=== PATIENT | female | born 1940 | race Caucasian/White ===

== ENCOUNTER 2022-11-19 12:37 | Outpatient (OUT) | payer MEDICARE, SELFPAY ==
--- NOTE | 2022-11-19 12:47 | XR_ITS ---
The [address] [address] Patient Name: RUFINO SQUIRES MRN: [id number] date: 1940 Sex: F Assigned Patient Location: [facility] Current Patient Location: [facility] Accession/Order Number: [id number] Exam Date: 11/19/2022 12:54 Report Date: 11/19/2022 14:10 At the request of: NATALIE MICHEL Procedure: XR abdomen 1V EXAM: XR abdomen 1V HISTORY: Kidney Stones N20.0 COMPARISON: None. TECHNIQUE: AP view of the abdomen. FINDINGS: Nonobstructive bowel gas pattern is noted. There is no suspicious calcification. The osseous structures are intact. XR/XR abdomen 1V IMPRESSION: Nonobstructive bowel gas pattern. No suspicious renal calcification. Electronically authenticated by: FRIEDA ALMANZAR Date: 11/19/2022 14:10
== END 2022-11-19 12:38 | disposition home or self-care (01) ==
LOC: RAD 12:37
PROVIDERS: PCP Internal Medicine; Visit Provider Urology
DX: N20.0 Calculus of kidney (principal)
CPT/HCPCS: 74018

== ENCOUNTER 2023-01-03 11:25 | Outpatient (REF) | payer MEDICARE, SELFPAY ==
[2023-01-03 12:08] LABS: SARS-CoV-2 Ag NEGATIVE (NEGATIVE)
[2023-01-04 14:37] LABS: SARS-CoV-2 NAA NOT DETECTED (NOT DETECTE)
== END 2023-01-03 11:26 | disposition home or self-care (01) ==
LOC: LAB 11:25
PROVIDERS: PCP Internal Medicine; Visit Provider Internal Medicine
DX: Z20.822 Contact with and (suspected) exposure to COVID-19 (principal)
CPT/HCPCS: 87635; 87811

== ENCOUNTER 2023-04-10 11:31 | Outpatient (REF) | payer MEDICARE, SELFPAY ==
[2023-04-10 11:51] LABS: Clarity Urine CLEAR (CLEAR); Color Urine DK. ORANGE (YELLOW)
[2023-04-10 11:52] LABS: Bilirubin Urine COLOR INTERFERENCE (NEGATIVE); Blood Urine COLOR INTERFERENCE (NEGATIVE); Glucose Urine UA COLOR INTERFERENCE mg/dL (NEGATIVE); Ketones Urine COLOR INTERFERENCE mg/dL (NEGATIVE); Leukocyte Esterase Urine COLOR INTERFERENCE (NEGATIVE); Nitrite Urine COLOR INTERFERENCE (NEGATIVE); Protein Urine COLOR INTERFERENCE mg/dL (NEG/TRACE); Urobilinogen Urine COLOR INTERFERENCE EU/dL (0.2-1.0); pH Urine COLOR INTERFERENCE (5.0-9.0)
[2023-04-10 12:10] LABS: WBC Urine 20-50 #/HPF (NONE SEEN)
[2023-04-10 12:11] LABS: Bacteria Urine SMALL #/HPF (NONE SEEN); Calcium Oxalate Crystals Urine RARE; Cast Seen? NONE SEEN #/LPF (NONE SEEN); Crystals Seen? Seen #/HPF (None Seen); Mucus Urine NONE SEEN (NONE SEEN); Squamous Epithelial Cell Urine FEW #/LPF (NONE/RARE); Urine Culture Indicated ALREADY ORDERED
== END 2023-04-10 11:32 | disposition home or self-care (01) ==
LOC: LAB 11:31
PROVIDERS: PCP Internal Medicine; Visit Provider Internal Medicine
DX: R30.0 Dysuria (principal)
CPT/HCPCS: 81001; 87086

== ENCOUNTER 2023-05-16 11:15 | Observation (INO) | payer MEDICARE, SELFPAY ==
[2023-05-16] VITALS (15 sets, daily range): BP systolic 124–153; BP diastolic 46–83; PULSE 70–82; RESP 16–31; TEMP 36.5–36.8; O2SAT 91–98; BMI 35.7; BMI 36.6
--- NOTE | 2023-05-16 11:34 | ECG_ITS ---
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
[2023-05-16] MEDS: 0.9 % SODIUM CHLORIDE 1,000 ML 999 ML IV (11:48)
[2023-05-16 11:57] LABS: Basophils Absolute Auto 0.1 10^3/uL (0.0-0.1); Basophils Percent Auto 1.2 % (0.2-2.0); Eosinophils Absolute Auto 0.2 10^3/uL (0.0-0.7); Eosinophils Percent Auto 2.4 % (0.9-7.0); Hematocrit 45.2 % (36.0-48.0); Hemoglobin 14.7 g/dL (12.0-16.0); Immature Granulocytes Abs Auto 0.03 10^3/uL (0.00-0.03); Immature Granulocytes Pct Auto 0.4 % (0.0-0.5); Lymphocytes Absolute Auto 2.2 10^3/uL (1.2-3.8); Lymphocytes Percent Auto 28.3 % (20.5-60.0); Mean Corpuscular HGB Conc 32.5 g/dL (29.9-35.2); Mean Corpuscular Hemoglobin 29.3 pg (26.7-34.0); Mean Platelet Volume 10.8 fL (9.5-13.5); Monocytes Absolute Auto 0.6 10^3/uL (0.3-0.8); Monocytes Percent Auto 7.4 % (1.7-12.0); Neutrophils Absolute Auto 4.6 10^3/uL (1.4-6.5); Neutrophils Percent Auto 60.3 % (43.0-75.0); Platelet Count 255 10^3/uL (150-450); Red Blood Count 5.02 10^6/uL (4.20-5.40); White Blood Count 7.6 10^3/uL (4.0-11.0)
[2023-05-16 12:11] LABS: Alanine Aminotransferase 17 U/L (14-59); Albumin Globulin Ratio 0.9; Albumin Level 3.4 g/dL (3.4-5.0); Alkaline Phosphatase 68 U/L (46-116); Aspartate Amino Transferase 13 U/L (15-37); Bilirubin Total 0.4 mg/dL (0.2-1.0); Calcium 9.6 mg/dL (8.5-10.1); Chloride 99 mmol/L (98-107); Estimated GFR (African America >60 (>=60); Estimated GFR (Non-African Ame >60 (>=60); Globulin 3.8 g/dL; Glucose 152 mg/dL (74-106); Magnesium 2.2 mg/dL (1.8-2.4); Sodium 129 mmol/L (136-145); Total Protein 7.2 g/dL (6.4-8.2)
[2023-05-16 12:14] LABS: Troponin I High Sensitivity 6.2 pg/mL (4.0-51.3)
[2023-05-16] MEDS: 0.9 % SODIUM CHLORIDE 1,000 ML 125 ML IV ×3 (14:16→23:34)
[2023-05-16 14:25] LABS: Bilirubin Urine NEGATIVE (NEGATIVE); Blood Urine NEGATIVE (NEGATIVE); Color Urine LT. YELLOW (YELLOW); Glucose Urine UA NEGATIVE (NEGATIVE); Ketones Urine NEGATIVE (NEGATIVE); Leukocyte Esterase Urine SMALL (NEGATIVE); Nitrite Urine NEGATIVE (NEGATIVE); Protein Urine NEGATIVE (NEG/TRACE); Urobilinogen Urine 0.2 EU/dL (0.2-1.0); pH Urine 6.5 (5.0-9.0)
[2023-05-16 14:30] LABS: Clarity Urine SLIGHTLY CLOUDY (CLEAR)
[2023-05-16 14:31] LABS: Bacteria Urine TRACE #/HPF (NONE SEEN); Cast Seen? NONE SEEN #/LPF (NONE SEEN); Crystals Seen? None Seen #/HPF (None Seen); Mucus Urine NONE SEEN (NONE SEEN); RBC Urine NONE SEEN #/HPF (0-2); Squamous Epithelial Cell Urine MODERATE #/LPF (NONE/RARE)
--- NOTE | 2023-05-16 14:35 | ED_ITS ---
HPI - General Adult General Chief complaint: Dizziness Stated complaint: UTI SYMPTOMS Time Seen by Provider: 05/16/23 11:34 Source: patient Mode of arrival: ambulance Limitations: no limitations History of Present Illness HPI narrative: Patient is a 82-year-old female who is presenting to the Emergency Room with chief complaint Of dizziness with no vertigo. Patient is bobbing her head up and down with flexion and extension in stating this is causing her dizziness. Patient is staying with range of motion or cause her to be lightheaded and dizzy. Patient adamantly states she has no vertigo. Patient did have a similar training one year ago. Patient has no headache or neck pain. Patient feels weak and fatigued. Patient was having difficulty ambulating this morning. Patient has been having urinary incontinence for a Month since the beginning of April. Patient stated that she was initially placed on Keflex and then switched to Macrobid and then switch to amoxicillin. Patient was initially and Dr. Hernandez office, then saw an urgent care, and then was switched tto amoxicillin by Dr. bain's office. Patient does see Dr. hernandez for urology needs. Patient states that she's had urinary incontinence since the beginning of April. Antibiotics are not improving her urinary incontinence. Patient also is having dizziness since she started taking amoxicillin, patient relates for dizziness to a side effect of amoxicillin. Patient is currently wearing adult diapers. Patient has no other acute complaints at this time. Daughters at bedside. All systems are negative except as noted/marked. All systems reviewed and otherwise negative. . Nurses note and vital signs reviewed and patient is not hypoxic. General: The patient appears well and in no apparent distress. Patient is resting comfortably on cart. Patient is not toxic, lethargic, or listless Skin: Warm, dry, no pallor noted. There is no rash noted. No petechiae, purpura. Head: Normocephalic, atraumatic Eye: Normal conjunctiva, no drainage, EOMI. PERRL Ears, Nose, Mouth, and Throat: oral mucosa is moist. Nares patent. Mouth without vesicles. Patient's bilateral tympanic membrane shows small air-fluid levels bilateral, right greater than left. No erythema, no perforation, no signs of otitis media. Cardiovascular: Regular Rate and Rhythm, no murmur, gallop, rub Respiratory: Patient is in no distress, no accessory muscle use, lungs are clear to auscultation, no wheezing, rales or rhonchi Back: non-tender, no CVA tenderness bilaterally to percussion. No CT LS midline pain GI: soft, Obese, no tenderness to palpation, no masses appreciated. No rebound, guarding, or rigidity noted. No flank pain bilateral, No distention Musculoskeletal: Patient has full range of motion of all of the extremities, no motor, sensory, or focal neurological deficits Neurological: A&O x3, normal speech, No strokelike signs or symptoms. Psychiatric: Cooperative Related Data Home Medications Medication Instructions Recorded Confirmed buspirone 15 mg tablet 15 mg PO BID 05/16/23 05/16/23 buspirone 7.5 mg tablet 7.5 mg PO 1400 05/16/23 05/16/23 levothyroxine 112 mcg tablet 112 mcg PO DAILY 05/16/23 05/16/23 nortriptyline 10 mg capsule 10 mg PO BEDTIME 05/16/23 05/16/23 propranolol 10 mg tablet 10 mg PO QID 05/16/23 05/16/23 Allergies Allergy/AdvReac Type Severity Reaction Status Date / Time Penicillins AdvReac Severe Nausea Verified 05/16/23 11:23 capsaicin AdvReac Verified 05/16/23 11:23 moxifloxacin [From Avelox] AdvReac Verified 05/16/23 11:25 Sulfa (Sulfonamide AdvReac Nausea Verified 05/16/23 11:23 Antibiotics) [facility] Medical History (Updated 05/16/23 @ 20:42 by Gideon Lopez MD) Dizziness ?R42 - Dizziness and giddiness (ICD-10) Heart block ?I45.9 - Conduction disorder, unspecified (ICD-10) Macular degeneration ?H35.30 - Unspecified macular degeneration (ICD-10) Pacemaker ?Z95.0 - Presence of cardiac pacemaker (ICD-10) UTI (urinary tract infection) ?N39.0 - Urinary tract infection, site not specified (ICD-10) Kidney calculi ?N20.0 - Calculus of kidney (ICD-10) Surgical History (Updated 05/16/23 @ 15:32 by Marissa Hoover) H/O: hysterectomy ?Z90.710 - Acquired absence of both cervix and uterus (ICD-10) Hx of carpal tunnel repair ?Z98.890 - Other specified postprocedural states (ICD-10) History of bilateral knee replacement ?Z96.653 - Presence of artificial knee joint, bilateral (ICD-10) History of appendectomy ?Z90.49 - Acquired absence of other specified parts of digestive tract (ICD- 10) Hx of cholecystectomy ?Z90.49 - Acquired absence of other specified parts of digestive tract (ICD- 10) Social History Smoking status: Former smoker Highest level of school completed/degree received: high school graduate Exam Constitutional Vital Signs, click to edit/add: Last Vital Signs Temp 97.8 F 05/16/23 15:53 Pulse 78 05/16/23 20:00 Resp 18 05/16/23 15:53 BP 143/83 H 05/16/23 15:53 Pulse Ox 94 L 05/16/23 15:53 O2 Del Method Room Air 05/16/23 15:53 Course Vital Signs Vital signs: Vital Signs Temperature 97.7 F 05/16/23 11:17 Pulse Rate 77 05/16/23 11:17 Respiratory Rate 16 05/16/23 11:17 Blood Pressure 153/71 H 05/16/23 11:17 Pulse Oximetry 97 05/16/23 11:17 Oxygen Delivery Method Room Air 05/16/23 11:17 Temperature 97.8 F 05/16/23 15:53 Pulse Rate 78 05/16/23 20:00 Respiratory Rate 18 05/16/23 15:53 Blood Pressure 143/83 H 05/16/23 15:53 Pulse Oximetry 94 L 05/16/23 15:53 Oxygen Delivery Method Room Air 05/16/23 15:53 Medical Decision Making MDM Narrative Medical decision making narrative: Patient's dizziness did not improve with range of motion of her neck or sitting up in bed. Patient does not have any vertigo. Patient's sodium was 129. Patient was nervous to go home. Patient was given 1 L of IV fluids, there is no improvement. Patient has no other significant findings. Urine was still pending at admission time. Patient was admitted to medicine for continued hydration, a continued therapy. Patient's 2 daughters were at bedside. Patient asked nursing staff and myself multiple times for something to fix a dizziness now. I told the patient there is no medication or therapy they can be done now to fix this. Patient said that she did have vertigo and dizziness over one year ago, at that time she did phhysical therapy for crystal vestibular training. Patient has no headache. No strokelike signs or symptoms. No vertigo. Patient will be admitted for further evaluation. Patient said this morning she cannot ambulate and bear weight. The last couple of days she's been using a cane but typically she only uses HER-2 feet for ambulation. See Natalia RN nursing notes,When she was doing a straight catheter on the patient, she noticed most likely bladder prolapse when she obtain urine sample. Patient will be admitted by Dr. Burr. He agrees to started no antibiotics until urine culture comes back. Patient is aware that we may not have urology coverage this weekkend and may not be able to see Dr. Hernandez in the hospital this weekend, especially if he is not transportation assistant. Lab Data Lab results reviewed: Yes I reviewed the patient's lab results Labs: Lab Results 05/16/23 05/16/23 Range/Units 11:30 14:10 WBC 7.6 (4.0-11.0) 10^3/uL RBC 5.02 (4.20-5.40) 10^6/uL Hgb 14.7 (12.0-16.0) g/dL Hct 45.2 (36.0-48.0) % MCV 90.0 (81.0-99.0) fL MCH 29.3 (26.7-34.0) pg MCHC 32.5 (29.9-35.2) g/dL RDW 13.0 (11.0-15.0) % Plt Count 255 (150-450) 10^3/uL MPV 10.8 (9.5-13.5) fL Neut % (Auto) 60.3 (43.0-75.0) % Lymph % (Auto) 28.3 (20.5-60.0) % [place] % (Auto) 7.4 (1.7-12.0) % Eos % (Auto) 2.4 (0.9-7.0) % Baso % (Auto) 1.2 (0.2-2.0) % Neut # (Auto) 4.6 (1.4-6.5) 10^3/uL Lymph # (Auto) 2.2 (1.2-3.8) 10^3/uL [place] # (Auto) 0.6 (0.3-0.8) 10^3/uL Eos # (Auto) 0.2 (0.0-0.7) 10^3/uL Baso # (Auto) 0.1 (0.0-0.1) 10^3/uL Abs Immat Gran (auto) 0.03 (0.00-0.03) 10^3/uL Imm/Tot Granulo (auto) 0.4 (0.0-0.5) % Sodium 129 L (136-145) mmol/L Potassium 4.0 (3.5-5.1) mmol/L Chloride 99 (98-107) mmol/L Carbon Dioxide 29.0 (21.0-32.0) mmol/L Anion Gap 5.0 BUN 16.0 (7.0-18.0) mg/dL Creatinine 0.84 (0.55-1.02) mg/dL Est GFR ( Amer) >60 (>=60) Est GFR (Non-Af Amer) >60 (>=60) BUN/Creatinine Ratio 19.0 Glucose 152 H (74-106) mg/dL Calcium 9.6 (8.5-10.1) mg/dL Magnesium 2.2 (1.8-2.4) mg/dL Total Bilirubin 0.4 (0.2-1.0) mg/dL AST 13 L (15-37) U/L ALT 17 (14-59) U/L Alkaline Phosphatase 68 (46-116) U/L Troponin I High Sens 6.2 (4.0-51.3) pg/mL Total Protein 7.2 (6.4-8.2) g/dL Albumin 3.4 (3.4-5.0) g/dL Globulin 3.8 g/dL Albumin/Globulin Ratio 0.9 Urine Color Lt. yellow (YELLOW) Urine Clarity Slightly cloudy A (CLEAR) Urine pH 6.5 (5.0-9.0) Ur Specific [place] 1.010 (1.005-1.025) Urine Protein Negative (NEG/TRACE) mg/dL Urine Glucose (UA) Negative (NEGATIVE) mg/dL Urine Ketones Negative (NEGATIVE) mg/dL Urine Occult Blood Negative (NEGATIVE) Urine Nitrite Negative (NEGATIVE) Urine Bilirubin Negative (NEGATIVE) Urine Urobilinogen 0.2 (0.2-1.0) EU/dL Ur Leukocyte Esterase Small A (NEGATIVE) Urine RBC None seen (0-2) #/HPF Urine WBC 2-5 A (NONE SEEN) #/HPF Ur Squamous Epith Cells Moderate A (NONE/RARE) #/LPF Urine Crystals None seen (None Seen) #/HPF Urine Bacteria Trace A (NONE SEEN) #/HPF Urine Casts None seen (NONE SEEN) #/LPF Urine Mucus None seen (NONE SEEN) ECG Data Attestation: I personally reviewed and interpreted this ECG as follows: (EKG interpretation. Normal sinus rhythm at 76 beats a minute. Left axis deviation. QTC of 432. QRS 140. Will be compared to old EKG if available. Appears to be LBBB..) Interpretation: Patient's EKG is compared to 06/29/2022. Patient has similar EKG today as she did in June 2022. Discharge Plan Discharge Chief Complaint: Dizziness Clinical Impression: Urinary incontinence, Dizziness, Hyponatremia, Dehydration Patient Disposition: Admitted As Inpatient Condition: Fair Discharge Date/Time: 05/16/23 15:10
--- OUTSIDE RECORDS SUMMARY | 2023-05-16 15:27 | XMS_ITS | CCD ---
Author Name Unknown Address [address] [place] [address] Organization [facility] Care Team Providers Care Sports Photographer Name Role Phone ERICKBRYANT Klein Unavailable Unavailable Mook Santiago Unavailable MANAV FERNANDEZ Primary Care Physician [phone] Manav Fernandez DO Primary Care Provider Tamra Grewal MD Unavailable Manav Fernandez DO Primary Care Provider Tamra Grewal MD Unavailable Manav Fernandez DO Primary Care Provider DR MANAV FERNANDEZ Primary Care Unavailable NATALIE CARLTON Admitting Unavailable NATALIE CARLTON Attending Unavailable NATALIE CARLTON Consulting Unavailable AISHWARYA, DR MOOK Gordon Consulting Unavailable MOHINI, DR JEFFERS Primary Care Unavailable RUTHANN ., QUEENIE Admitting Unavailable RUTHANN ., QUEENIE Attending Unavailable ADIN KILLIAN Consulting Unavailable RUTHANN ., QUEENIE Consulting Unavailable JOEY MARLEY Consulting Unavailable ANDREW MONTALVO Consulting Unavailable MOHINI, DR JEFFERS Primary Care Unavailable NATALIE CARLTON Attending Unavailable NATALIE CARLTON Admitting Unavailable MOHINI, DR JEFFERS Primary Care Unavailable MOHINI, DR JEFFERS Admitting Unavailable MOHINI, DR JEFFERS Attending Unavailable MOHINI, DR JEFFERS Consulting Unavailable MOHINI, DR JEFFERS Primary Care Unavailable MOHINI, DR JEFFERS Admitting Unavailable MOHINI, DR JEFFERS Attending Unavailable MOHINI, DR JEFFERS Consulting Unavailable MANAV FERNANDEZ Primary Care Unavailable KM KIRBY Attending Unavailable Manav Fernandez Unavailable Tamra Grewal MD Unavailable [phone] MANAV FERNANDEZ Primary Care Unavailable RACHID ODELL Attending Unavailable MANAV FERNANDEZ Primary Care Unavailable TAMRA GREWAL Referring Unavailable TAMRA GREWAL Attending Unavailable MANAV FERNANDEZ Primary Care Unavailable TAMRA GREWAL Referring Unavailable TAMRA GREWAL Attending Unavailable MANAV FERNANDEZ Primary Care Unavailable MANAV FERNANDEZ Primary Care Unavailable MANAV FERNANDEZ Primary Care Unavailable RACHID ODELL Attending Unavailable Natalie CARLTON Attending Unavailable TIM THOMAS Attending Unavailab Roseann Hinojosa Attending Unavailable Roseann Luna Admitting Unavailable Roseann Luna Attending Unavailable Nina Wallace Unavailable BUSHRA Wallace Attending Provider Nina Wallace Attending Unavailable Nina Wallace Admitting Unavailable NO FAMILY, PHYSICIAN Primary Care Unavailable Allergies Allergy Classification Reported Allergen(s) Allergy Type Date of Onset Reaction(s) Facility (18 sources) acetaminophen / oxyCODONE; Translations: [OXYCODONE-ACETAMI NOPHEN] Drug Allergy 12-03-19 07 Intolerance [facility] Repository (20 sources) capsaicin; Translations: [CAPSAICIN] Drug Allergy 02-10-20 15 Itching [facility] (20 sources) cephalexin; Translations: [CEPHALEXIN] Drug Allergy 07-23-19 17 Itching [facility] (18 sources) clavulanic acid; Translations: [CLAVULANIC ACID] Drug Allergy 07-23-19 17 Itching [facility] (18 sources) levoFLOXacin; Translations: [LEVOFLOXACIN] Drug Allergy 07-23-19 17 Itching [facility] (18 sources) metroNIDAZOLE; Translations: [METRONIDAZOLE] Drug Allergy 07-23-19 17 Itching [facility] (20 sources) moxifloxacin; Translations: [MOXIFLOXACIN] Drug Allergy 12-21-19 04 Unknown (qualifier value), Intolerance [facility] (18 sources) pravastatin; Translations: [PRAVASTATIN SODIUM] Drug Allergy 06-15-19 10 Intolerance [facility] (18 sources) Sulfonamides (Antibiotic); Translations: [SULFA (SULFONAMIDE ANTIBIOTICS)] Propensity to adverse reactions to drug (disorder) 12-21-19 04 GI Upset [facility]ository (2 sources) OTHER; Translations: [OTHER] Propensity to adverse reactions (disorder) 12-20-19 07 AOF [facility] (20 sources) Acetaminophen / oxyCODONE; Translations: [acetaminophen-oxy codone] Drug Allergy Unknown (qualifier value) [facility] Other (1 source) Amoxicillin / Clavulanate Drug Allergy Unknown [facility] Other (20 sources) Sulfonamides (Antibiotic) Drug allergy Unknown [facility] Other (20 sources) Pepper Drug allergy Unknown [facility] Other (5 sources) Sulfonamides (Antibiotic); Translations: [sulfa drugs] Drug allergy Unknown (qualifier value) [facility] (5 sources) Peppers; Translations: [Peppers] Food allergy Unknown (qualifier value) [facility] (16 sources) hot peppers [Other] Propensity to adverse reactions 12-20-19 07 Itching [facility] Work Phone: (1 source) oxyCODONE Drug Allergy 02-20-20 17 [facility] Work Phone: (13 sources) Sulfonamides (Antibiotic) Propensity to adverse reactions to drug 06-09-19 15 Unknown [facility] Work Phone: (2 sources) Acetaminophen / oxyCODONE Drug Allergy 03-24-20 14 [facility] (1 source) Amoxicillin Drug Allergy [facility] (2 sources) Ciprofloxacin Drug Allergy 10-23-19 17 [facility] (3 sources) moxifloxacin; Translations: [Avelox] Drug Allergy 03-24-20 14 [facility] (2 sources) Sulfonamides (Antibiotic) Drug allergy (disorder) 03-24-20 14 [facility] (20 sources) Amoxicillin-Pot Clavulanate Drug allergy Unknown [facility] Other (12 sources) Amoxicillin Drug Allergy Unknown [facility] Other (12 sources) metFORMIN Drug Allergy Unknown [facility] Other (12 sources) Pseudoephedrine Drug Allergy Unknown [facility] Other (12 sources) sulfADIAZINE Drug Allergy Comment:Sulfa [facility] Other (12 sources) Avelox *FLUOROQUINOLONES* Propensity to adverse reactions Unknown [facility] Other (1 source) Acetaminophen / oxyCODONE; Translations: [Percocet 5/325] Drug Allergy [facility] Repository Medications Current Medications Medication Drug Class(es) Dates Sig (Normalized) Sig (Original) amoxicillin 500 mg oral capsule (3 sources) Penicillin-class Antibacterial Start: 05-10-2023 take 1 capsule by mouth every twelve hours Amoxicillin 500 MG 1 capsule Orally Twice a day for 7 days Apr, Active azithromycin 250 mg oral tablet (2 sources) Macrolide Antimicrobial Start: 01-03-2023 Azithromycin 250 MG as directed Orally daily for 5 days Dec, Active b complex vitamins capsule (1 source) take 1 capsule by mouth once daily b complex vitamins capsule Take 1 capsule by mouth daily 0 Active B-Complex SR (4 sources) Start: 02-17-2019 take 1 tablet by mouth once daily B-Complex SR tab(s), Oral, Daily, Refill(s) 0 Start Date: 02/17/19 Status: Ordered busPIRone (20 sources) Start: 02-17-2019 busPIRone Oral, BID, Refills(s) 0 Start Date: 02/17/19 Status: Ordered Start: 10-06-2018 take 1 tablet by jigna th twice daily busPIRone (BUSPAR) 15 mg tablet Take 1 tablet by mouth twice daily. 180 tablet 1 10/06/2018 Active BuSpar 15 mg BID Active Comment on above: Take 1 tablet by jigna th twice daily. cephalexin 500 mg oral capsule (9 sources) Cephalosporin Antibacterial Start: 04-17-2023 End: 04-27-2023 take 1 capsule by mouth twice daily Keflex 500 mg Cap 500 mg = 1 cap(s), Oral, BID, X 10 day(s), # 20 cap(s), Refills(s) 0, Pharmacy: [facility]/pharmacy #[id number], 170, cm, 04/17/23 9:22:00 EST, Height/Length Dosing, 113.9, kg, 04/17/23 9:22:00 EST, Weight Dosing Start Date: 04/17/23 Stop Date: 04/27/23 Status: Ordered Start: 02-20-2023 take 1 tablet by jigna th twice daily Cephalexin 500 MG 1 tablet Orally bid w/ food for 5 days Feb, Active chlorthalidone 25 mg oral tablet (4 sources) Thiazide-like Diuretic Start: 04-17-2023 take 1 tablet by mouth once daily chlorthalidone 25 mg Tab 25 mg = 1 tab(s), Oral, Daily, # 30 tab(s), Refills(s) 6, Pharmacy: [facility]/pharmacy #[id number], 170, cm, 04/17/23 9:22:00 EST, Height/Length Dosing, 113.9, kg, 04/17/23 9:22:00 EST, Weight Dosing Start Date: 04/17/23 Status: Ordered Start: 04-23-2021 End: 04-18-2022 take 0.5 tablet by mouth once daily chlorthalidone 25 mg Tab half tab, Oral, Daily, X 30 day(s), # 15 tab(s), Refills(s) 11, Pharmacy: [facility]/pharmacy #[id number], 170, cm, 09/18/20 14:12:00 EDT, Height/Length Dosing, 113, kg, 09/18/20 14:12:00 EDT, Weight Dosing Start Date: 04/23/21 Stop Date: 04/18/22 Status: Ordered Cinnamon Preparation (20 sources) Non-Standardized Food Allergenic Extract Cinnamon Active Coenzyme Q10 (CO Q 10 PO) (1 source) Coenzyme Q10 (CO Q 10 PO) Take by mouth 0 Active dicyclomine hydrochloride 10 mg oral capsule (17 sources) Anticholinergic Start: 11-23-2021 dicyclomine 10 mg Cap Refills(s) 0 Start Date: 11/23/21 Status: Ordered take 1 tablet by jigna th every eight hours Dicyclomine HCl 20 MG 1 tablet Orally Th ree times a day Active doxycycline hyclate 100 mg oral capsule (12 sources) Tetracycline-class Drug Start: 07-02-2022 take 1 capsule by mouth twice daily Doxycycline Hyclate 100 MG 1 capsule Orally twice daily for 10 days Jun, Active Hair Skin [employer] Nails Gummies (20 sources) Hair Skin & Nails Gummies Active hydrocortisone 25 mg/ml topical cream (20 sources) Corticosteroid Start: 10-09-2021 Anusol-HC 2.5 % 1 application Externally Twice a day for 14 days September, Active Start: 10-09-2021 Anusol-HC 2.5 % 1 application Externally Twice a day for 14 days September, Active [id number]-[id number] (CEREFOLIN PO) (1 source) H-Eoclafkcnuvx-J [id number]-[id number] (CEREFOLIN PO) Take by mouth daily 0 Active Synthroid (20 sources) l-Thyroxi ne Start: 9 Synthroid Oral, Daily, Refills(s) 0 Start Date: 02/17/19 Status: Ordered Start: 07-23-2017 take 1 tablet by jigna th once daily levothyroxine (SYNTHROID) 112 MCG tablet Take 1 tablet by mouth Daily 90 tablet 3 07/23/2017 Active Start: 05-22-2016 take 1 tablet by jigna th once daily before breakfast levothyroxine (SYNTHROID) 100 mcg tablet Take 1 tablet by mouth daily before breakfast. 90 tablet 3 05/22/2016 Active Levothyroxine So dium 112 MCG TAKE 1 TABLET DAILY ON AN EMPTY STOMACH for 90 Active Comment on above: Take 1 tablet by jigna th daily before breakfast. nitrofurantoin, macrocrystals 25 mg / nitrofurantoin, monohydrate 75 mg oral capsule (5 sources) Nitrofuran Antibacterial Start: 05-03-20 take 1 capsule by mouth every twelve hours Macrobid 100 MG 1 cap(s) Orally bid for 5 day(s) Apr, Active nortriptyline 10 mg oral capsule (20 sources) Tricyclic Antidepressant Start: 11-26-19 End: 05-07-20 nortriptyline 10 mg Cap Refills(s) 0 Start Date: 11/25/22 Status: Ordered Start: 08-20-2022 End: 11-18-2022 take 1 capsule by mouth once daily at bedtime nortriptyline (PAMELOR) 10 mg capsule Take 1 capsule by mouth daily at bedtime. 90 capsule 0 10/17/2022 Active Comment on above: Take 1 capsule by mo ut daily at bedtime. [place]-3 Fatty Acids (FISH OIL PO) (1 source) [place]-3 Fatty Ac ids (FISH OIL PO) Take by mouth 0 Active pantoprazole (20 sources) Proton Pump Inhibitor Start: 02-17-2019 pantoprazole Daily, Refills(s) 0 Start Date: 02/17/19 Status: Ordered take 1 tablet by mouth once stevenson y Pantoprazole Sodium 40 MG 1 tablet Orally Once a day, taken on an empty stomach, followed in 30 minutes by bkfst Active Comment on above: Take 40 mg by mouth once daily. phenazopyridine hydrochloride 200 mg oral tablet (5 sources) Start: 3 take 1 tablet by mouth every eight hours Pyridium 200 MG 1 tablet after meals Orally Three times a day for 2 day(s) Apr, Active Probiotic Product (ALIGN PO) (1 source) Probiotic Produc t (ALIGN PO) Take by mouth 0 Active Propranolol (20 sources) beta-Adrenergic Claudia Start: 9 propranolol Refills(s) 0 Start Date: 02/17/19 Status: Ordered Start: 06-22-2018 End: 08-31-2023 take 1 tablet by mouth four times daily propranolol (INDERAL) 10 mg tablet Take 1 tablet by mouth four times daily. 360 tablet 1 03/04/2023 08/31/2023 Active take 1 tablet by jigna th every twelve hours Propranolol HCl 20 MG 1 tablet Orally BID Active Comment on above: Take 1 tablet by jigna th four times daily. turmeric extract 450 mg oral capsule (1 source) Turmeric 450 MG CAPS Take by mouth 0 Active Vitamin B Complex (20 sources) take 1 capsule by mouth once daily VITAMIN B COMPLEX (B COMPLEX-100 ORAL) Take 1 capsule by mouth once daily. Patient denies taking this any longer 0 Active Vitamin B Comple x Active Comment on above: Take 1 capsule by mo uth once daily. Patient denies taking this any longer Vitamin D (20 sources) Vitamin D Active Vitamin E (20 sources) Vitamin E, dl, a cetate, (VITAMIN E) 400 unit capsule Take 400 Units by mouth as needed. 0 Active Vitamin E, dl, a cetate, (VITAMIN E) 400 unit capsule Take 400 Units by mouth as needed. 0 Active Vitamin E Active Comment on above: Take 400 Units by mo uth as needed. Completed/Discontinued Medications Medication Drug Class(es) Dates Sig (Normalized) Sig (Original) acetaminophen 500 mg / caffeine 65 mg oral tablet (16 sources) Central Nervous System Stimulant, Methylxanthine take 2 tablets by mouth twice daily, then take 2 tablets by mouth in the morning, then take 1 tablet by mouth after lunch Acetaminophen-Caf feine (TENSION HEADACHE PAIN RELIEVER) 500-65 mg tab Take 2 tablets by mouth twice daily. 2 tablets in am, 1 tablet after lunch 0 Active Comment on above: Take 2 tablets by mo [facility] twice daily. 2 tablets in am, 1 tablet after lunch ascorbic acid 100 mg / d-biotin 0.3 mg / folic acid 1 mg / niacinamide 20 mg / pantothenic acid 10 mg / pyridoxine hydrochloride 10 mg / riboflavin 1.7 mg / thiamine 1.5 mg / vitamin b12 0.006 mg oral tablet (16 sources) Vitamin B12, Vitamin C vit B complx-folic ac-C-biotin 1 mg-100 mg- 300 mcg tab Take by mouth. 0 Active Comment on above: Take by mouth. cholecalciferol 0.25 mg oral capsule (17 sources) Vitamin D Cholecalciferol, Vitamin D3, 10,000 unit cap Take by mouth once daily. 0 Active Cholecalciferol (VITAMIN D) 2000 units CAPS capsule Take by mouth 0 Active Comment on above: Take by mouth once d aily. cinnamon bark 500 mg oral capsule (16 sources) take 2 capsules by mouth once daily Cinnamon Bark 500 mg cap Take 2 capsules by mouth once daily. 0 Active Comment on above: Take 2 capsules by out once daily. cyclobenzaprine hydrochloride 10 mg oral tablet (2 sources) Muscle Relaxant Start: 01-25-20 End: 01-25-20 22 take 1 tablet by mouth three times daily as needed for pain cyclobenzaprine (FLEXERIL) 10 mg tablet Indications: Myalgia Take 1 tablet by mouth three times daily as needed for pain. 270 tablet 1 01/24/2021 01/24/2022 Discontinued (Discontinued by Patient) Comment on above: Take 1 tablet by jigna three times daily as needed for pain. 24 hr loratadine 10 mg / pseudoephedrine sulfate 240 mg extended release oral tablet (16 sources) alpha-Adrenergic Agonist take 1 tablet by mouth once daily loratadine-pseudoephed rine ER (CLARITIN-D 24) 10-240 mg Tb24 Take 1 tablet by mouth once daily. 0 Active Comment on above: Take 1 tablet by jigna th once daily. Problems Active Problems Problem Classification Problem Date Documented Da te Episodic/Chronic Abdominal pain (20 sources) Abdominal pain; Translations: [Unspecified abdominal pain] Episodic Anxiety disorders (20 sources) Anxiety; Translations: [Anxiety disorder, unspecified] Onset: 3 02-17-2019 Chronic Calculus of urinary tract (10 sources) Kidney stone; Translations: [Calculus of kidney] Onset: 2 Episodic Conditions associated with dizziness or vertigo (8 sources) Dizziness; Translations: [Dizziness and giddiness] Onset: 3 Episodic Conduction disorders (19 sources) Mobitz type II atrioventricular block; Translations: [Atrioventricular block, second degree] Onset: 5 02-26-2015 Chronic Diabetes mellitus with complications (20 sources) Type 2 diabetes mellitus with hyperglycemia; Translations: [Type 2 diabetes mellitus] Onset: 3 Chronic Diabetes mellitus without complication (4 sources) Diabetes mellitus 02-17-2019 Chronic Diverticulosis and diverticulitis (4 sources) Diverticular disease 02-17-2019 Chronic Esophageal disorders (20 sources) Gastroesophageal reflux disease; Translations: [Gastro-esophageal reflux disease without esophagitis] Onset: 2 Resolved: 2 Chronic Essential hypertension (20 sources) Hypertensive disorder; Translations: [Essential (primary) hypertension] Onset: 5 02-17-2019 Chronic Genitourinary symptoms and ill-defined conditions (9 sources) Urge incontinence; Translations: [Urge incontinence of urine] Onset: 2 Chronic Genitourinary symptoms and ill-defined conditions (20 sources) Nocturia; Translations: [Nocturia] Onset: 2 Episodic Malaise and fatigue (20 sources) Fatigue; Translations: [Other fatigue] Episodic Menopausal disorders (1 source) Hormone replacement therapy; Translations: [HORMONE REPLACEMENT THERAPY] Onset: 3 Episodic Mood disorders (20 sources) Depressive disorder; Translations: [Dysthymia] Onset: 7 02-17-2019 Chronic Nausea and vomiting (20 sources) Nausea; Translations: [Nausea] Episodic Osteoarthritis (17 sources) Osteoarthritis; Translations: [Osteoarthrosis, unspecified whether generalized or localized, lower leg] Onset: 1 05-29-2010 Chronic Other aftercare (1 source) Other group home (current) drug therapy; Translations: [OTH ELEMENTARY EDUCATOR CURRENT DRUG THERAPY] Onset: 3 Episodic Other connective tissue disease (16 sources) History of total knee arthroplasty; Translations: [Presence of unspecified artificial knee joint] Onset: 1 02-05-2011 Chronic Other connective tissue disease (1 source) Presence of right artificial knee joint; Translations: [PRESENCE RT ARTIFICIAL KNEE JOINT] Onset: 3 Chronic Other ear and sense organ disorders (16 sources) Sensorineural hearing loss; Translations: [Unspecified sensorineural hearing loss] Onset: 0 05-16-2009 Chronic Other ear and sense organ disorders (1 source) Mixed conductive and sensorineural hearing loss, unilateral, left ear, with unrestricted hearing on the contralateral side; Translations: [Mixed hearing loss, unilateral] Onset: 7 02-20-2017 Chronic Other gastrointestinal disorders (20 sources) Irritable bowel syndrome with diarrhea; Translations: [Irritable bowel syndrome with diarrhea] Chronic Other gastrointestinal disorders (20 sources) Irritable bowel syndrome; Translations: [Irritable bowel syndrome without diarrhea] Chronic Other gastrointestinal disorders (2 sources) Irritable bowel syndrome with diarrhea Onset: 2 Resolved: 2 Chronic Other gastrointestinal disorders (20 sources) Constipation alternates with diarrhea; Translations: [Other specified symptoms and signs involving the digestive system and abdomen] Episodic Other gastrointestinal disorders (1 source) Swollen abdomen; Translations: [Abdominal distension (gaseous)] Episodic Other gastrointestinal disorders (20 sources) Flatulence, eructation and gas pain; Translations: [Abdominal distension (gaseous)] Episodic Other hereditary and degenerative nervous system conditions (3 sources) Essential tremor; Translations: [Essential tremor] Onset: 7 Chronic Other nervous system disorders (16 sources) Carpal tunnel syndrome of right wrist; Translations: [Carpal tunnel syndrome, right upper limb] Onset: 1 05-30-2020 Chronic Other nervous system disorders (1 source) Polyneuropathy; Translations: [Polyneuropathy, unspecified] Onset: 7 02-20-2017 Chronic Other nervous system disorders (20 sources) General unsteadiness; Translations: [Unsteadiness on feet] Episodic Other nervous system disorders (1 source) Tremor; Translations: [Tremor, unspecified] Episodic Other nutritional; endocrine; and metabolic disorders (20 sources) Obese class II; Translations: [Body mass index (BMI) 35.0-35.9, adult] Chronic Other nutritional; endocrine; and metabolic disorders (20 sources) Body mass index 30+ - obesity; Translations: [Obesity, unspecified] Chronic Other nutritional; endocrine; and metabolic disorders (10 sources) Severe obesity; Translations: [Morbid (severe) obesity due to excess calories] Chronic Other nutritional; endocrine; and metabolic disorders (1 source) Morbid (severe) obesity due to excess calories Chronic Other nutritional; endocrine; and metabolic disorders (1 source) Body mass index (BMI) 36.0-36.9, adult Chronic Other nutritional; endocrine; and metabolic disorders (20 sources) Decrease in appetite; Translations: [Anorexia] Episodic Other upper respiratory infections (20 sources) Chronic sinusitis, unspecified; Translations: [Chronic maxillary sinusitis] Onset: 3 Chronic Other upper respiratory infections (1 source) Acute maxillary sinusitis, unspecified Episodic Residual codes; unclassified (1 source) Acquired absence of other specified parts of digestive tract; Translations: [ACQ ABSENCE OTH PART DIGESTV TRACT] Onset: 3 Episodic Residual codes; unclassified (1 source) Acquired absence of both cervix and uterus; Translations: [ACQUIRED ABSENCE BOTH CERVIX AND UTERUS] Onset: 3 Episodic Residual codes; unclassified (1 source) Procedure and treatment not carried out because of patient's decision for unspecified reasons Episodic Retinal detachments; defects; vascular occlusion; and retinopathy (4 sources) 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 Thyroid disorders (20 sources) Hypothyroidism; Translations: [Hypothyroidism, unspecified] Onset: 5 02-17-2019 Chronic Urinary tract infections (4 sources) Acute cystitis without hematuria Episodic Past or Other Problems Problem Classification Problem Date Documented Da te Episodic/Chronic Cardiac dysrhythmias (16 sources) Bradycardia; Translations: [Bradycardia, unspecified] Onset: 02-26-2015 07-03-2016 Episodic Hemorrhoids (1 source) Unspecified hemorrhoids Onset: 10-09-2021 Resolved: 10-09-2021 Episodic Other lower respiratory disease (1 source) Solitary pulmonary nodule; Translations: [Solitary pulmonary nodule] Onset: 07-14-2017 Episodic Other lower respiratory disease (16 sources) Dyspnea on exertion; Translations: [Other forms of dyspnea] Onset: 02-26-2015 02-26-2015 Episodic Pulmonary heart disease (16 sources) Pulmonary embolism; Translations: [Other pulmonary embolism without acute cor pulmonale] Onset: 03-02-2015 03-02-2015 Episodic Results Test Name Value Interpretation Reference Range Facility Urinalysis - AUTOMATEDon Appearance (U) cloudy [employer] [facility] Other Bilirubin Ql (U) Negative [facility] Other Color (U) bright orange [employer] Other Glucose Ql (U) 100 [employer] Other Hemoglobin Ql (U) small [employer] Other Ketones Ql (U) Negative [employer] Other Leukocyte esterase Test strip Ql (U) large [employer] Other Nitrite Ql (U) Positive [employer] Other pH (U) 5.0 [pH] [employer] Other Protein Ql (U) 100 [employer] Other Specific gravity (U) [Rel density] >=1.030 [facility] Other Urobilinogen (U) [Mass/Vol] 1.0 mg/dL [facility] Other Urinalysis - AUTOMATED [facility] Other Urine Cultureon 05-03-2023 Urine Culture >100,000 [employer] Other Bacteria identified Cx Nom (U) Reason for Exam Dysuria Urine ORGANISM: Streptococcus anginosus (O:MECCA) Drake Count >100,000 Organism Comments Organism not Routinely Tested for Susceptibilities PERFORMED BY: [place] [id number] PATHOLOGIST ACTIVITY LEADER LAKSHMI ACEVES M.D. Normal [facility] Comment on above: Performed By: #### C UU #### [address] Bacteria identified Cx Nom (U) [facility] Other Ambulatory Visit Summaryon 1 07-01-2022 Ambulatory Visit Summary RUFINO COLLINS :1940 Visit Date:04/30/2023 Ambulatory Visit Instructions Your Diagnosis Incomplete bladder emptying Your Care Team Attending Physician - DAVID THOMAS PA-C Primary Care Physician - MANAV FERNANDEZ DO This Is Your Medications List busPIRone chlorthalidone (chlorthalidone 25 mg Tab) dicyclomine (dicyclomine 10 mg Cap) levothyroxine (Synthroid) multivitamin (B-Complex SR) nortriptyline (nortriptyline 10 mg Cap) pantoprazole propranolol Procedures Performed Cystoscopic removal of ureteric stent (10/24/2016), Cystoscopic laser lithotripsy of ureteric calculus (10/17/2016), Implantation of cardiac pacemaker (02/2015), Cystoscopic removal of ureteric stent (08/01/2014), Cystoscopic removal of ureteric stent (08/18/2011), ESWL - Extracorporeal shockwave lithotripsy for renal calculus (08/02/2011), Cystoscopic laser lithotripsy of ureteric calculus (06/28/2011), Carpal tunnel release, Knee replacement, Operative procedure on hand. Medications What How Much When Instructions Unchanged busPIRone By Mouth 2 times a day Unchanged chlorthalidone (chlorthalidone 25 mg Tab) 1 Tablets By Mouth Every day Unchanged dicyclomine (dicyclomine 10 mg Cap) Unchanged levothyroxine (Synthroid) By Mouth Every day Unchanged multivitamin (B-Complex SR) By Mouth Every day Unchanged nortriptyline (nortriptyline 10 mg Cap) Unchanged pantoprazole Every day Unchanged propranolol Allergies Avelox (Unknown) Peppers (Unknown) Percocet 5/325 (Unknown) sulfa drugs (Unknown) Problems Ongoing - Any problem that you are currently receiving treatment for. Anxiety Depression Diabetes mellitus Diverticulosis Gastroesophageal reflux Hypertension Hypothyroidism Incomplete bladder emptying Kidney stone Leaking of urine Macular degeneration Nocturia Urge incontinence Urinary urgency UTI symptoms Patient Survey You may receive a survey via text or e-mail asking about your office visit. Please share your experience with us by completing your survey. We appreciate your feedback and thank you for choosing us for your care. [facility] C Urineon 04-20-2023 Bacteria identified Cx Nom (U) Microbiology PROCEDURE: Urine Culture [R1] SOURCE: U CleanCatch BODY SITE: COLLECTED DATE/TIME: 04/17/2023 10:12 EST RECEIVED DATE/TIME: 04/17/2023 13:52 EST START DATE/TIME: 04/17/2023 13:52 EST FREE TEXT SOURCE: PEEWEE Luna APRN, PEEWEE Luna APRN, Roseann X Roseann X FINAL REPORTS Final Report [] Verified Date/Time: 04/20/2023 13:49 EST >100,000 cfu/ml Streptococcus anginosus group (Microaerophilic) Presumptive isolated. Therapeutic Options: Penicillin or ceftriaxone, with or without an aminoglycoside; vancomycin is used in cases of penicillin allergies and beta-lactam resistance. 2,000 cfu/ml Mixed skin contaminants Performing Locations R1: This test was performed at: [facility], [address] [place] [address], [id number] , [place], [facility] Comment on above: Performed By: #### [id number] #### [facility] [address] [place] [id number] Ambulatory Visit Summaryon 1 06-18-2022 Ambulatory Visit Summary RUFINO COLLINS :1940 Visit Date:04/17/2023 Ambulatory Visit Instructions Your Diagnosis UTI symptoms Incomplete bladder emptying Kidney stone Tests Performed Urnls Dip Stick Auto w/o Microscopy POC [id number] Your Care Team Attending Physician - PEEWEE Luna APRN, Roseann Giron Primary Care Physician - MANAV FERNANDEZ DO This Is Your Medications List cephalexin (Keflex 500 mg Cap) chlorthalidone (chlorthalidone 25 mg Tab) Contact prescribing physician if questions or concerns busPIRone dicyclomine (dicyclomine 10 mg Cap) levothyroxine (Synthroid) multivitamin (B-Complex SR) nortriptyline (nortriptyline 10 mg Cap) pantoprazole propranolol Procedures Performed Cystoscopic removal of ureteric stent (10/24/2016), Cystoscopic laser lithotripsy of ureteric calculus (10/17/2016), Implantation of cardiac pacemaker (02/2015), Cystoscopic removal of ureteric stent (08/01/2014), Cystoscopic removal of ureteric stent (08/18/2011), ESWL - Extracorporeal shockwave lithotripsy for renal calculus (08/02/2011), Cystoscopic laser lithotripsy of ureteric calculus (06/28/2011), Carpal tunnel release, Knee replacement, Operative procedure on hand. Discharge Vitals Temperature (Temporal Artery) 36.3 ?C Heart Rate (Peripheral) 83 Blood Pressure 134/86 Height 170 cm Height 67 in Weight 113.9 kg Weight 250.58 lb BMI 39.41 What to do next Scheduled Follow-Up Appointments Friday 11:00 AM EST Where: [facility] Patient Education 04-17-20 Patient Education Nephrology Dietary Guidelines to Help Prevent Kidney Stones Kidney stones are deposits of minerals and salts that form inside your kidneys. Your risk of developing kidney stones may be greater depending on your diet, your lifestyle, the medicines you take, and whether you have certain medical conditions. Most people can lower their risks of developing kidney stones by following these dietary guidelines. Your dietitian may give you more specific instructions depending on your overall health and the type of kidney stones you tend to develop. What are tips for following this plan? Reading food labels ? Choose foods with no salt added or low-salt labels. Limit your salt (sodium) intake to less than 1,500 mg a day. ? Choose foods with calcium for each meal and snack. Try to eat about 300 mg of calcium at each meal. Foods that contain 200?500 mg of calcium a serving include: ? 8 oz (237 mL) of milk, calcium-fortifiednon- dairy milk, and calcium-fortifiedfrui t juice. Calcium-fortified means that calcium has been added to these drinks. ? 8 oz (237 mL) of kefir, yogurt, and soy yogurt. ? 4 oz (114 g) of tofu. ? 1 oz (28 g) of cheese. ? 1 cup (150 g) of dried figs. ? 1 cup (91 g) of cooked broccoli. ? One 3 oz (85 g) can of sardines or mackerel. Most people need 1,000?1,500 mg of calcium a day. Talk to your dietitian about how much calcium is recommended for you. Shopping ? Buy plenty of fresh fruits and vegetables. Most people do not need to avoid fruits and vegetables, even if these foods contain nutrients that may contribute to kidney stones. ? When shopping for convenience foods, choose: ? Whole pieces of fruit. ? Pre-made salads with dressing on the side. ? Low-fat fruit and yogurt smoothies. ? Avoid buying frozen meals or prepared deli foods. These can be high in sodium. ? Look for foods with live cultures, such as yogurt and kefir. ? Choose high-fiber grains, such as whole-wheat breads, oat bran, and wheat cereals. Cooking ? Do not add salt to food when cooking. Place a salt shaker on the table and allow each person to add their own salt to taste. ? Use vegetable protein, such as beans, textured vegetable protein (TVP), or tofu, instead of meat in pasta, casseroles, and soups. Meal planning ? Eat less salt, if told by your dietitian. To do this: ? Avoid eating processed or pre-made food. ? Avoid eating fast food. ? Eat less animal protein, including cheese, meat, poultry, or fish, if told by your dietitian. To do this: ? Limit the number of times you have meat, poultry, fish, or cheese each week. Eat a diet free of meat at least 2 days a week. ? Eat only one serving each day of meat, poultry, fish, or seafood. ? When you prepare animal proteins, cut pieces into small portion sizes. For most meat and fish, one serving is about the size of the palm of your hand. ? Eat at least five servings of fresh fruits and vegetables each day. To do this: ? Keep fruits and vegetables on hand for snacks. ? Eat one piece of fruit or a handful of berries with breakfast. ? Have a salad and fruit at lunch. ? Have two kinds of vegetables at dinner. ? You may be told to limit foods that are high in a substance called oxalate. These include: ? Spinach (cooked), rhubarb, beets, sweet potatoes, and Panamanian chard. ? Peanuts. ? Potato chips, bruneian fries, and baked potatoes with skin on. ? Nuts and nut products. ? Chocolate. ? If you regularly take a diuretic medicine, make sure to eat at least 1 or 2 servings of fruits or vegetables that are high in potassium each day. These include: ? Avocado. ? Banana. ? [place], prune, carrot, or tomato juice. ? Baked potato. ? Cabbage. ? Beans and split peas. Lifestyle ? Drink enough fluid to keep your urine pale yellow. This is the most important thing you can do. Spread your fluid intake throughout the day. ? If you drink alcohol: ? Limit how much you have to: ? 0?1 drink a day for women who are not . ? 0?2 drinks a day for men. ? Know how much alcohol is in your drink. In the [place] one drink equals one 12 oz bottle of beer (355 mL), one 5 oz glass of wine (148 mL), or one 1? oz glass of hard liquor (44 mL). ? Lose weight if told by your health care provider. Work with your dietitian to find an eating plan and weight loss strategies that work best for you. General information ? Talk to your health care provider and dietitian about taking daily supplements. Depending on your health and the cause of your kidney stones, you may be told: ? Do not take high-dose supplements of vitamin C (1,000 mg a day or more). ? To take a calcium supplement. ? To take a daily probiotic supplement. ? To take other supplements such as magnesium, fish oil, or vitamin B6. ? Take bsvu-zzo-ewkiiec and prescription medicines only as told by your health care provider. These include supplements. What foods sh (more content not included)... Normal [facility] Urology Office/Clinic Noteon 04-17-2023 Urology Office/Clinic Note Chief Complaint 2F/U with UTI sx HPI Staff Rufino is a 82 y.o. female here for frequent urination/pain. Previous Dx: kidney stone, leaking of urine, nocturia, urge incontinence, urinary urgency. S/P cysto/stent removal done on 10/24/16, Laser done on 10/17/16, ESWL done on 08/02/11. Urine culture done on 04/10/23 was negative. She is having UTI sx since 04/10/23 PVR 234 Dysuria: yes pain and burning since 04/10 Incomplete bladder emptying: not really Hematuria: denies visible blood ( Large on U/A today) Frequency: 6-7x daily Urgency: most times Nocturia: 3x nightly Stream: denies hesitation, normal stream Leaking: yes Post void dripping: denies Wearing pads/ Depends: Depends started 2 days ago, was wearing pads but it has not been enough the last couple days Urge incontinence: most time she can not make it on time without an accident Stress incontinence: denies Incontinence without Sensory Awareness: denies Abdominal pain: denies Flank pain: denies Sexual complaints: denies History of Present Illness staff HPI reviewed and agree. Review of Systems PHQ Score Initial Depression Screen Score: 0 SCORE no fever, chills, malaise, myalgia. no rash/lesions. no chest pain, palpitations, or SOB. no abdominal pain, nausea, vomiting. no unilateral calf swelling, redness, pain Physical Exam Vitals & Measurements T: 36.3 ?C(Temporal Artery) HR: 83(Peripheral) BP: 134/86 HT: 67 in HT: 170 cm WT: 113.9 kg WT: 250.58 lb BMI: 39.41 General: nontoxic, NAD Mouth: moist mucosa Lungs: normal respiratory effort Cardio: regular rate, good distal perfusion Abdomen: nondistended, no suprapubic distention or tenderness, no CVA tenderness Neurologic: Grossly normal Skin: No rashes or suspicious lesions Assessment/Plan PRW pt. 1. UTI symptoms (R39.9: Unspecified symptoms and signs involving the genitourinary system) Pt stated that she had a positive urine cx last month, was treated with Cipro. Urine culture done on 04/10/23 was negative. She has been having UTI sxs since 04/10/23. UA today shows large blood, positive nitrates, and small leuks. Pt states that she tried taking AZO, does not feel it has helped improve her sxs. Pt states that she has burning when she voids and frequency. Advised pt that due to the AZO, it is hard to tell if she truly has an infection but due to her sxs being ongoing for so long, we will treat her epirically with abx. Advised pt that she can continue taking the AZO along with the abx, increase her water intake, avoid bladder irritants, and have regular BM's. Advised pt that if she feels the abx does not resolve her sxs, we may need to schedule a cysto to see what could be causing her sxs. Counseled pt on the possible causes of these sxs if her sxs do not resolve with the abx. Advised pt that we could also do a CT to rule out kidney stones. Follow up pending sxs after abx. All questions/concerns were discussed. Pt to call the office if she encounters any issues prior. Pt acknowledges understanding. -Will send urine for cx. -Increase fluids. -Will send Keflex 500mg BID x10 dyas to pharmacy on file. Discussed the medication side effects, and the patient will monitor closely for these, as well as for symptom improvement. If severe side effects occur, the medication should be stopped and the office notified. 2. Incomplete bladder emptying (R33.9: Retention of urine, unspecified) PVR today was 234mL. Pt states that she feels empty, did notice that she did not void before her appt. Advised pt that she should try to do timed voids to ensure she empties, increased water intake, and will readdress once we resolve dx #1. Follow up in 2 wks w/PVR as nurse visit. -See #1 3. Kidney stone (N20.0: Calculus of kidney) S/p ESWL 08/01/16 S/p Laser Litho 10/17/16 S/p Cysto/stent removal 10/24/16 KUB 11/20/21 and 11/19/22 at [facility] - negative Pt takes Chlorthalidone 25mg 1/2 tab 1-2 times week, rather than daily due to SEs. Tolerating 1/2 dose well. Continue. Denies any signs of stone passage. -Pt is to get KUB done prior to her 2 yr appt 11/2024. -Will send refills for Chlorthalidone 25mg to pharmacy on file. Follow-up With When Contact Information PEEWEE Luna APRN, Roseann Giron, FAM, URL Additional Instructions: Pending sxs after abx course. Patient Education Dietary Guidelines to Help Prevent Kidney Stones I, Ofelia Dietrich, personally scribed for Roseann VIDES on 04/17/2023 10:09:31. . Documentation recorded by the scribfatuma Dietrich accurately reflects the services(s) I performed and decisions made by me. Authenticated by Roseann Luna APRN, FNP-C on 04/17/2023 10:13:37. Problem List/Past Medical History Ongoing Anxiety Depression Diabetes mellitus Diverticulosis Gastroesophageal reflux Hypertension Hypothyroidism Incomplete bladder emptying Kidney stone Leaking of urine M (more content not included)... Normal [facility] Comment on above: Result Comment: Elec tronically Signed By: PEEWEE Luna APRN, Roseann Giron\.br\Date and Time Signed: 04/17/23 10:13 EST\.br\Electronically Co-Signed By: Ofelia Dietrich\.br\Date and Time Co-Signed: 04/17/23 10:10 EST CNOVon 04-16-2023 CNOV Office Visit (CAEPAV ) RUFINO COLLINS ([id number]) 1940 F Date Time Provider Department 04/16/23 3:00 PM TAMRA GREWAL During your visit today, we recorded the following information about you: Pulse Blood pressure Weight Height 80/minute 142/84 108.4 kg 1.727 m Allergies As of Date: 04/16/2023 Noted Allergy Reaction MOXIFLOXACIN 12/21/2003 5 - Intolerance Comments: thought I was having a heart attack w/ Avelox PERCOCET (OXYCODONE-ACETAMINOP HEN)12/02/2006 5 - Intolerance Comments: Drops BP CAPSAICIN 02/09/2015 9 - Itching PRAVACHOL (PRAVASTATIN SODIUM) 06/15/2009 5 - Intolerance Comments: Muscle cramps CEPHALEXIN 07/22/2016 9 - Itching CLAVULANIC ACID 07/22/2016 9 - Itching FLAGYL (METRONIDAZOLE) 07/22/2016 9 - Itching hot peppers [Other] 12/19/2006 9 - Itching LEVOFLOXACIN 07/22/2016 9 - Itching SULFA (SULFONAMIDE ANTIBIOTICS) 12/21/2003 8 - GI Upset Date Reviewed: 04/16/2023 Reviewed by: Tayla Lomeli MA - Fully Assessed Reason for Visit: Follow Up [171] Primary Visit Diagnosis:Pacemaker [Z95.0] Order(s):ECG COMPLETE [ECG01] Order #: [id number] Prescriptions as of 04/16/2023 - propranolol (INDERAL) 10 mg tablet Take 1 tablet by mouth four times daily. - nortriptyline (PAMELOR) 10 mg capsule Take 1 capsule by mouth daily at bedtime. - Acetaminophen-Caffein e (TENSION HEADACHE PAIN RELIEVER) 500-65 mg tab Take 2 tablets by mouth twice daily. 2 tablets in am, 1 tablet after lunch - Vitamin E, dl, acetate, (VITAMIN E) 400 unit capsule Take 400 Units by mouth as needed. - vit B complx-folic ac-C-biotin 1 mg-100 mg- 300 mcg tab Take by mouth. - Cinnamon Bark 500 mg cap Take 2 capsules by mouth once daily. - loratadine-pseudoephe drine ER (CLARITIN-D 24) 10-240 mg Tb24 Take 1 tablet by mouth once daily. - busPIRone (BUSPAR) 15 mg tablet Take 1 tablet by mouth twice daily. - Cholecalciferol, Vitamin D3, 10,000 unit cap Take by mouth once daily. - pantoprazole DR (PROTONIX) 40 mg tablet Take 40 mg by mouth once daily. - levothyroxine (SYNTHROID) 100 mcg tablet Take 1 tablet by mouth daily before breakfast. - VITAMIN B COMPLEX (B COMPLEX-100 ORAL) Take 1 capsule by mouth once daily. 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] 02/26/2015 Bradycardia [R00.1] 02/26/2015 Pulmonary embolus (HCC) [I26.99] 03/02/2015 Dysthymia [F34.1] 07/22/2016 Carpal tunnel syndrome of right wrist [G56.01] 05/30/2020 Encounter Status:Closed by TAMRA GREWAL on 04/16/[address] [facility] [id number] 04-16-2023 ECG01 Ventricular Rate : 8 0 BPM Atrial Rate : 80 BPM P-R Interval : 154 ms QRS Duration : 172 ms Q-T Interval : 416 ms QTC Calculation(Bazett) : 479 ms Calculated P Zamora : 60 degrees Calculated R Zamora : -89 degrees Calculated T Zamora : 78 degrees ATRIAL-SENSED VENTRICULAR-PACED RHYTHM ABNORMAL ECG Confirmed by NATO ORONA MD ([id number]) on 04/17/2023 7:18:20 PM NAME : RUFINO COLLINS PID : [id number] : 1940 Gender : Female Race : ORD : Procedure Date : Apr 16 2023 15:01:07 Edit Date : Apr 17 2023 19:18:22 Diagnosis: ATRIAL-SENSED VENTRICULAR-PACED RHYTHM ABNORMAL ECG Confirmed by NATO ORONA MD ([id number]) on 04/17/2023 7:18:20 PM Test Reason : Location : 192 : AVCRD Overread By : NATO ORONA MD Edited By : NATO ORONA MD Referred By : Niall Grewal Acquired by : , Normal [facility] No Panel Informationon 04-16 BLANK _ [facility] ic Implant Date 02/27/2015 [facility] inic Model 2088TC Tendril STS [facility] CHECKon AMS Fallback Rate (bpm) 70 {beats}/min [facility] AV Delay Adaptive Paced Minimum (ms) 150 ms [facility] favian AV Delay Adaptive Rate Maximum (bpm) 120 {beats}/min [facility] favian AV Delay Adaptive Rate Minimum (bpm) 90 {beats}/min [facility] favian AV Delay Adaptive Sensed Minimum (ms) 130 ms [facility] in AV Delay Adaptive Status Medium [facility] AV Delay Paced (ms) 100 ms [facility] AV Delay Sensed (ms) 100 ms [facility] Battery Voltage (volts) 2.89 V [facility] Dirk RA Pacing Amplitude (volts) 2.0 V [facility] Dirk RA Pacing Polarity BI [facility] Dirk RA Pacing Pulse Width (ms) 0.5 ms [facility] Dirk RA Sensing Blanking Period (ms) 150 ms [facility] Dirk RA Sensing Polarity BI [facility] Dirk RA Sensing Refractory Period (ms) 190 ms [facility] Dirk RV Pacing Amplitude (volts) 1.375 [facility] Dirk RV Pacing Polarity BI [facility] Dirk RV Pacing Pulse Width (ms) 0.5 ms [facility] Dirk RV Sensing Amplitude (mvolts) 2.0 mV [facility] favian Dirk RV Sensing Blanking Period (ms) 44 ms [facility] Dirk RV Sensing Polarity BI [facility] Dirk RV Sensing Refractory Period (ms) 250 ms [facility] Hysteresis Rate (bpm) Off [facility] Lead1 Mfg STJ [facility] ic Lead2 Mfg STJ [facility] ic Location RA [facility] Location RV [facility] Lower Rate (bpm) 60 {beats}/min [facility] Max Sensor Rate (bmp) 120 {beats}/min [facility] Model 2240 Assurity [facility] linic Pacemaker Dependent? YES [facility] P[facility]DD [facility]-Device Mfg STJ [facility] linic PM-Percent Pacing (A) 6.3 % [facility] PM-Percent Pacing (V) 99.96 % [facility] PM-PMT Intervention Atrial Pace [facility] PM-PVC Intervention Off [facility] PM-Rate Modulation Acceleration Reaction Fast [facility] PM-Rate Modulation Deceleration Medium [facility] PM-Rate Modulation Brule Auto (+2) [facility] PM-Rate Modulation Threshold Auto (+0.0) [facility] Rhythm Sinus rhythm with complete heart block [facility] Serial Number [id number] [facility] linic Serial Number [id number] [facility] linic Serial Number [id number] [facility] linic Thresh RA Capture Amplitude (volts) 1.0 V [facility] ic Thresh RA Capture Duration (ms) 0.5 ms [facility] Thresh RA Sensing Amplitude (mvolts) 0.7 mV [facility] favian Thresh RV Capture Amplitude (volts) 1.25 V [facility] ic Thresh RV Capture Duration (ms) 0.5 ms [facility] Thresh RV Sensing Amplitude (mvolts) 12.0 mV [facility] favian Tracking Rate (bpm) 120 {beats}/min [facility] Lab Reportson 04-15-2023 Lab Reports [id number] Normal [facility] UA RANDOM W/MICROSCOPICon Clarity (U) CLEAR CLEAR [employer] Other Color (U) DK. ORANGE YELLOW [employer] Other Ketones Ql (U) COLOR INTERFERENCE mg/dL Abnormal NEGATIVE mg/dL [employer] Other Leukocyte esterase Test strip Ql (U) COLOR INTERFERENCE Abnormal NEGATIVE [employer] Other UA RANDOM W/MICROSCOPIC 20-50 #/HPF Abnormal NONE SEEN #/HPF [employer] Other UA RANDOM W/MICROSCOPIC 5-10 #/HPF Abnormal 0-2 #/HPF [employer] Other UA RANDOM W/MICROSCOPIC see note [employer] Other UA RANDOM W/MICROSCOPIC 1.010 1.005-1.025 [employer] Other UA RANDOM W/MICROSCOPIC COLOR INTERFERENCE Abnormal NEGATIVE [employer] Other UA RANDOM W/MICROSCOPIC COLOR INTERFERENCE mg/dL Abnormal NEGATIVE mg/dL [employer] Other UA RANDOM W/MICROSCOPIC COLOR INTERFERENCE EU/dL Abnormal 0.2-1.0 EU/dL [employer] Other UA RANDOM W/MICROSCOPIC SMALL #/HPF Abnormal NONE SEEN #/HPF [employer] Other UA RANDOM W/MICROSCOPIC NONE SEEN NONE SEEN [employer] Other UA RANDOM W/MICROSCOPIC FEW #/LPF Abnormal NONE/RARE #/LPF [employer] Other UA RANDOM W/MICROSCOPIC Seen #/HPF Abnormal None Seen #/HPF [employer] Other UA RANDOM W/MICROSCOPIC NONE SEEN #/LPF NONE SEEN #/LPF [employer] Other UA RANDOM W/MICROSCOPIC RARE [employer] Other UA RANDOM W/MICROSCOPIC ALREADY ORDERED [employer] Other No Panel Informationon 04-05 BLANK _ [facility] ic Implant Date 02/27/2015 [facility] in Model 2088TC Tendril STS [facility] PACEMAKER REMOTE CHECKon AV Delay Adaptive Paced Minimum (ms) 150 ms [facility] AV Delay Adaptive Sensed Minimum (ms) 130 ms [facility] in AV Delay Paced (ms) 100 ms [facility] AV Delay Sensed (ms) 100 ms [facility] Battery Voltage (volts) 2.89 V [facility] Dirk RA Pacing Amplitude (volts) 1.875 [facility] ic Dirk RA Pacing Polarity BI [facility] Dirk RA Pacing Pulse Width (ms) 0.5 ms [facility] Dirk RA Sensing Amplitude (mvolts) 0.4 mV [facility] Dirk RA Sensing Polarity BI [facility] Dirk RV Pacing Amplitude (volts) 1.375 [facility] ic Dirk RV Pacing Polarity BI [facility] Dirk RV Pacing Pulse Width (ms) 0.5 ms [facility] Dirk RV Sensing Amplitude (mvolts) 2.0 mV [facility] Dirk RV Sensing Polarity BI [facility] Lead1 Mfg STJ [facility] ic Lead2 Mfg STJ [facility] ic Location RA [facility] ic Location RV [facility] ic Lower Rate (bpm) 60 {beats}/min [facility] Max Sensor Rate (bmp) 120 {beats}/min [facility] Model 2240 Assurity [facility] lin Pacing Mode DDD [facility] favian PM-Device Mfg STJ [facility] linic PM-Percent Pacing (A) 7.7 % [facility] PM-Percent Pacing (V) 99.0 % [facility] RA Bipolar Impedance ohms 480 ohm [facility] RV Bipolar Impedance ohms 930 ohm [facility] Serial Number [id number] [facility] linic Serial Number [id number] [facility] linic Serial Number [id number] [facility] lin Thresh RA Capture Amplitude (volts) 0.875 V [facility] ic Thresh RA Capture Duration (ms) 0.5 ms [facility] Thresh RA Sensing Amplitude (mvolts) 0.5 mV [facility] favian Thresh RV Capture Amplitude (volts) 1.125 V [facility] ic Thresh RV Capture Duration (ms) 0.5 ms [facility] Thresh RV Sensing Amplitude (mvolts) 12.0 [facility] Tracking Rate (bpm) 120 {beats}/min [facility] Urinalysis - DIPSTICKon - Appearance (U) clear [employer] Other Bilirubin Ql (U) Negative [employer] Other Color (U) yellow [employer] Other Glucose Ql (U) Negative [employer] Other Hemoglobin Ql (U) Negative [employer] Other Ketones Ql (U) Negative [employer] Other Leukocyte esterase Test strip Ql (U) + [employer] Other Nitrite Ql (U) Negative [employer] Other pH (U) 5.0 [pH] [employer] Other Protein Ql (U) Negative [employer] Other Specific gravity (U) [Rel density] 1.015 [employer] Other Urobilinogen (U) [Mass/Vol] off chart [employer] Other Urinalysis - DIPSTICK [employer] Other CNPNon 02-06-2023 CNPN Telephone (CARDMN) RUFINO COLLINS ([id number]) 1940 F Date Time Provider Department 02/06/23 TAMRA GREWAL CARDUT During your visit today, we recorded the following information about you: Shirin Lopez RN 02/06/2023 12:49 PM Signed Spoke with patient, answered all questions at this time. Allergies As of Date: 02/06/2023 Noted Allergy Reaction MOXIFLOXACIN 12/21/2003 5 - Intolerance Comments: thought I was having a heart attack w/ Avelox PERCOCET (OXYCODONE-ACETAMINOP HEN)12/02/2006 5 - Intolerance Comments: Drops BP CAPSAICIN 02/09/2015 9 - Itching PRAVACHOL (PRAVASTATIN SODIUM) 06/15/2009 5 - Intolerance Comments: Muscle cramps CEPHALEXIN 07/22/2016 9 - Itching CLAVULANIC ACID 07/22/2016 9 - Itching FLAGYL (METRONIDAZOLE) 07/22/2016 9 - Itching hot peppers [Other] 12/19/2006 9 - Itching LEVOFLOXACIN 07/22/2016 9 - Itching SULFA (SULFONAMIDE ANTIBIOTICS) 12/21/2003 8 - GI Upset Date Reviewed: 08/20/2022 Reviewed by: Brittani García LPN - Fully Assessed Reason for Visit: Patient Update [1234] Appointment [186] Cmt: Patient miss a phone call from [facility] and would like to reschedul her remote check. Please give her a call at [phone] Prescriptions as of 02/06/2023 - nortriptyline (PAMELOR) 10 mg capsule Take 1 capsule by mouth daily at bedtime. - propranolol (INDERAL) 10 mg tablet Take 1 tablet by mouth four times daily. - Acetaminophen-Caffein e (TENSION HEADACHE PAIN RELIEVER) 500-65 mg tab Take 2 tablets by mouth twice daily. 2 tablets in am, 1 tablet after lunch - Vitamin E, dl, acetate, (VITAMIN E) 400 unit capsule Take 400 Units by mouth as needed. - vit B complx-folic ac-C-biotin 1 mg-100 mg- 300 mcg tab Take by mouth. - Cinnamon Bark 500 mg cap Take 2 capsules by mouth once daily. - loratadine-pseudoephe drine ER (CLARITIN-D 24) 10-240 mg Tb24 Take 1 tablet by mouth once daily. - busPIRone (BUSPAR) 15 mg tablet Take 1 tablet by mouth twice daily. - Cholecalciferol, Vitamin D3, 10,000 unit cap Take by mouth once daily. - pantoprazole DR (PROTONIX) 40 mg tablet Take 40 mg by mouth once daily. - levothyroxine (SYNTHROID) 100 mcg tablet Take 1 tablet by mouth daily before breakfast. - VITAMIN B COMPLEX (B COMPLEX-100 ORAL) Take 1 capsule by mouth once daily. Patient denies taking this any longer Problem List As Of Date 02/06/2023 Noted Resolved Hearing Loss, Sensorineural, Unilateral [H90.5] 05/16/2009 Osteoarth NOS-l/leg [PLI4809] 05/29/2010 S/P TKR (total knee replacement) using cement [*02/05/2011 Hypothyroidism [E03.9] 02/26/2015 Hypertension [I10] 02/26/2015 Dyspnea on exertion [R06.09] 02/26/2015 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] 02/26/2015 Bradycardia [R00.1] 02/26/2015 Pulmonary embolus (HCC) [I26.99] 03/02/2015 Dysthymia [F34.1] 07/22/2016 Carpal tunnel syndrome of right wrist [G56.01] 05/30/2020 Encounter Status:Closed by SHIRIN LOPEZ RN on 02/06/[address] [facility] No Panel Informationon 01-30 BLANK _ [facility] ic Implant Date 02/27/2015 [facility] in Model 2088TC Tendril STS [facility] PACEMAKER REMOTE CHECKon AV Delay Adaptive Paced Minimum (ms) 150 ms [facility] favian AV Delay Adaptive Sensed Minimum (ms) 130 ms [facility] in AV Delay Paced (ms) 100 ms [facility] AV Delay Sensed (ms) 100 ms [facility] Battery Voltage (volts) 2.9 V [facility] Dirk RA Pacing Amplitude (volts) 2.0 V [facility] Dirk RA Pacing Polarity BI [facility] Dirk RA Pacing Pulse Width (ms) 0.5 ms [facility] Dirk RA Sensing Amplitude (mvolts) 0.4 mV [facility] favian Dirk RA Sensing Polarity BI [facility] Dirk RV Pacing Amplitude (volts) 1.75 V [facility] Dirk RV Pacing Polarity BI [facility] Dirk RV Pacing Pulse Width (ms) 0.5 ms [facility] Dirk RV Sensing Amplitude (mvolts) 2.0 mV [facility] favian Dirk RV Sensing Polarity BI [facility] Location RA [facility] Location RV [facility] Lower Rate (bpm) 60 {beats}/min [facility] Max Sensor Rate (bmp) 120 {beats}/min [facility] Model 2240 Assurity [facility] lin Pacing Mode DDD [facility] favian PM-Device Mfg STJ [facility] linic PM-Percent Pacing (A) 5.8 % [facility] PM-Percent Pacing (V) 99.0 % [facility] RA Bipolar Impedance ohms 460 ohm [facility] RV Bipolar Impedance ohms 940 ohm [facility] Serial Number [id number] [facility] linic Serial Number [id number] [facility] linic Serial Number [id number] [facility] lin Thresh RA Capture Amplitude (volts) 1.0 V [facility] Thresh RA Capture Duration (ms) 0.5 ms [facility] Thresh RA Sensing Amplitude (mvolts) 1.5 mV [facility] favian Thresh RV Capture Amplitude (volts) 1.5 V [facility] Thresh RV Capture Duration (ms) 0.5 ms [facility] Thresh RV Sensing Amplitude (mvolts) 12.0 mV [facility] favian Tracking Rate (bpm) 120 {beats}/min [facility] No Panel Informationon 01-22 BLANK _ [facility] ic Implant Date 02/27/2015 [facility] in Model 2088TC Tendril STS [facility] PACEMAKER REMOTE CHECKon AV Delay Adaptive Paced Minimum (ms) 150 ms [facility] favian AV Delay Adaptive Sensed Minimum (ms) 130 ms [facility] AV Delay Paced (ms) 100 ms [facility] AV Delay Sensed (ms) 100 ms [facility] Battery Voltage (volts) 2.9 V [facility] Dirk RA Pacing Amplitude (volts) 2.0 V [facility] Dirk RA Pacing Polarity BI [facility] Dirk RA Pacing Pulse Width (ms) 0.5 ms [facility] Dirk RA Sensing Amplitude (mvolts) 0.4 mV [facility] favian Dirk RA Sensing Polarity BI [facility] Dirk RV Pacing Amplitude (volts) 1.625 [facility] Dirk RV Pacing Polarity BI [facility] Dirk RV Pacing Pulse Width (ms) 0.5 ms [facility] Dirk RV Sensing Amplitude (mvolts) 2.0 mV [facility] favian Dirk RV Sensing Polarity BI [facility] Lead1 Mfg STJ [facility] ic Lead2 Mfg STJ [facility] ic Location RA [facility] Location RV [facility] Lower Rate (bpm) 60 {beats}/min [facility] Max Sensor Rate (bmp) 120 {beats}/min [facility] Model 2240 Assurity [facility] linic Pacing Mode DDD [facility] favian PM-Device Mfg STJ [facility] linic PM-Percent Pacing (A) 5.4 % [facility] PM-Percent Pacing (V) 99.0 % [facility] RA Bipolar Impedance ohms 460 ohm [facility] RV Bipolar Impedance ohms 860 ohm [facility] Serial Number [id number] [facility] linic Serial Number [id number] [facility] linic Serial Number [id number] [facility] Thresh RA Capture Amplitude (volts) 1.0 V [facility] ic Thresh RA Capture Duration (ms) 0.5 ms [facility] Thresh RA Sensing Amplitude (mvolts) 0.7 mV [facility] Thresh RV Capture Amplitude (volts) 1.375 V [facility] ic Thresh RV Capture Duration (ms) 0.5 ms [facility] Thresh RV Sensing Amplitude (mvolts) 12.0 mV [facility] favian Tracking Rate (bpm) 120 {beats}/min [facility] Patient Educationon 11-26-19 23 Patient Education Nephrology Dietary Guidelines to Help Prevent Kidney Stones Kidney stones are deposits of minerals and salts that form inside your kidneys. Your risk of developing kidney stones may be greater depending on your diet, your lifestyle, the medicines you take, and whether you have certain medical conditions. Most people can lower their chances of developing kidney stones by following the instructions below. Your dietitian may give you more specific instructions depending on your overall health and the type of kidney stones you tend to develop. What are tips for following this plan? Reading food labels ? Choose foods with no salt added or low-salt labels. Limit your salt (sodium) intake to less than 1,500 mg a day. ? Choose foods with calcium for each meal and snack. Try to eat about 300 mg of calcium at each meal. Foods that contain 200?500 mg of calcium a serving include: ? 8 oz (237 mL) of milk, calcium-fortifiednon- dairy milk, and calcium-fortifiedfrui t juice. Calcium-fortified means that calcium has been added to these drinks. ? 8 oz (237 mL) of kefir, yogurt, and soy yogurt. ? 4 oz (114 g) of tofu. ? 1 oz (28 g) of cheese. ? 1 cup (150 g) of dried figs. ? 1 cup (91 g) of cooked broccoli. ? One 3 oz (85 g) can of sardines or mackerel. Most people need 1,000?1,500 mg of calcium a day. Talk to your dietitian about how much calcium is recommended for you. Shopping ? Buy plenty of fresh fruits and vegetables. Most people do not need to avoid fruits and vegetables, even if these foods contain nutrients that may contribute to kidney stones. ? When shopping for convenience foods, choose: ? Whole pieces of fruit. ? Pre-made salads with dressing on the side. ? Low-fat fruit and yogurt smoothies. ? Avoid buying frozen meals or prepared deli foods. These can be high in sodium. ? Look for foods with live cultures, such as yogurt and kefir. ? Choose high-fiber grains, such as whole-wheat breads, oat bran, and wheat cereals. Cooking ? Do not add salt to food when cooking. Place a salt shaker on the table and allow each person to add his or her own salt to taste. ? Use vegetable protein, such as beans, textured vegetable protein (TVP), or tofu, instead of meat in pasta, casseroles, and soups. Meal planning ? Eat less salt, if told by your dietitian. To do this: ? Avoid eating processed or pre-made food. ? Avoid eating fast food. ? Eat less animal protein, including cheese, meat, poultry, or fish, if told by your dietitian. To do this: ? Limit the number of times you have meat, poultry, fish, or cheese each week. Eat a diet free of meat at least 2 days a week. ? Eat only one serving each day of meat, poultry, fish, or seafood. ? When you prepare animal protein, cut pieces into small portion sizes. For most meat and fish, one serving is about the size of the palm of your hand. ? Eat at least five servings of fresh fruits and vegetables each day. To do this: ? Keep fruits and vegetables on hand for snacks. ? Eat one piece of fruit or a handful of berries with breakfast. ? Have a salad and fruit at lunch. ? Have two kinds of vegetables at dinner. ? Limit foods that are high in a substance called oxalate. These include: ? Spinach (cooked), rhubarb, beets, sweet potatoes, and Panamanian chard. ? Peanuts. ? Potato chips, bruneian fries, and baked potatoes with skin on. ? Nuts and nut products. ? Chocolate. ? If you regularly take a diuretic medicine, make sure to eat at least 1 or 2 servings of fruits or vegetables that are high in potassium each day. These include: ? Avocado. ? Banana. ? [place], prune, carrot, or tomato juice. ? Baked potato. ? Cabbage. ? Beans and split peas. Lifestyle ? Drink enough fluid to keep your urine pale yellow. This is the most important thing you can do. Spread your fluid intake throughout the day. ? If you drink alcohol: ? Limit how much you use to: ? 0?1 drink a day for women who are not . ? 0?2 drinks a day for men. ? Be aware of how much alcohol is in your drink. In the [place] one drink equals one 12 oz bottle of beer (355 mL), one 5 oz glass of wine (148 mL), or one 1? oz glass of hard liquor (44 mL). ? Lose weight if told by your health care provider. Work with your dietitian to find an eating plan and weight loss strategies that work best for you. General information ? Talk to your health care provider and dietitian about taking daily supplements. You may be told the following depending on your health and the cause of your kidney stones: ? Not to take supplements with vitamin C. ? To take a calcium supplement. ? To take a daily probiotic supplement. ? To take other supplements such as magnesium, fish oil, or vitamin B6. ? Take lffe-tkd-vxzuejv and prescription medicines only as told by your health care provider. These include supplements. What foods should I limit? Limit your in (more content not included)... Normal [facility] Reminderson 11-25-2022 Reminders - From: Lidia Smith To: ANGI Jiménez [facility]; Sent: 11/25/2022 14:28:14 EDT Show up: 09/25/2024 14:27:00 EDT Subject: KUB Reminder Message Please Remember to:_have pt get KUB prior to next appt (follow up in 2 years from 11/25/22). Normal [facility] Urology Office/Clinic Noteon 11-25-2022 Urology Office/Clinic Note Chief Complaint 1 year with KUB HPI Staff 1 year f/u with KUB. Previous dx of kidney stone, nocturia and urge incontinence. Current KUB done 11/19/22 showed no suspicious renal calculi. Dysuria: no Incomplete bladder emptying: no Hematuria: no Frequency: no Urgency: mild Nocturia: 1x Stream: good steady stream Leaking: rare Post void dripping: no Wearing pads/ Depends: pads if she goes away from home Urge incontinence: no Stress incontinence: no Incontinence without Sensory Awareness: no Abdominal pain: no Flank pain: no Sexual complaints: no History of Present Illness Tests reviewed: reviewed UA, KUB I have reviewed the previous health record information and history for this patient from Dr. Carlton. I have reviewed and verified the staff HPI to be accurate for this encounter. There have been no associated fever, chills, flank pain, or blood in the urine. Denies any urinary infections since last encounter. Review of Systems PHQ Score Initial Depression Screen Score: 0 ROS - Provider Constitutional: denies weight loss, denies hot flashes. Eyes: denies eye problems. Gastrointestinal: denies nausea, denies vomiting. Cardiovascular: denies chest pain or angina. Integumentary: no dryness Musculoskeletal: denies musculoskeletal symptoms. ENMT: denies otolaryngeal symptoms. Respiratory: no shortness of breath. Heme/Lymph: denies easy bleeding tendency, denies easy bruising tendency. Psychiatric: no confusion, no anxiety. Genitourinary: See HPI. Physical Exam Vitals & Measurements HR: 89(Peripheral) RR: 16 BP: 128/80 HT: 67 in HT: 170 cm WT: 113.9 kg WT: 250.58 lb BMI: 39.41 General Appearance: alert , no acute distress, well nourished, well developed female. Genitourinary: bladder nonpalpable, no flank pain. Assessment/Plan 1. Kidney stone (N20.0: Calculus of kidney) S/p laser litho and Cysto/stent removal 10/2016 KUB 11/20/21 and 11/19/22 at [facility] - negative Pt takes Chlorthalidone 25mg 1/2 tab 1-2 times week, rather than daily due to SEs. Pt to increase fluid intake. UA today shows small leukocytes. Follow up in 2 years with KUB or sooner if needed. All questions/concerns were discussed. Pt to call the office if she encounters any issues prior. Pt acknowledges understanding. Follow-up With When Contact Information ANAND ALMARAZ, Natalie Mosley, [facility] [address], [place] [address]- [phone] Additional Instructions: 2 years with KUB Patient Education Dietary Guidelines to Help Prevent Kidney Stones I, Lidia Smith, personally scribed for Dr. Carlton on 11/25/2022 14:26:59. . Documentation recorded by the scribe, Lidia Smith, accurately reflects the services(s) I performed and decisions made by me. Authenticated by Dr. Carlton on 11/25/2022 14:27:57. Problem List/Past Medical History Ongoing Anxiety Depression Diabetes mellitus Diverticulosis Gastroesophageal reflux Hypertension Hypothyroidism Kidney stone Leaking of urine Macular degeneration Nocturia Urge incontinence Urinary urgency Historical No qualifying data Procedure/Surgical History Cystoscopic removal of ureteric stent (10/24/2016), Cystoscopic laser lithotripsy of ureteric calculus (10/17/2016), Implantation of cardiac pacemaker (02/2015), Cystoscopic removal of ureteric stent (08/01/2014), Cystoscopic removal of ureteric stent (08/18/2011), ESWL - Extracorporeal shockwave lithotripsy for renal calculus (08/02/2011), Cystoscopic laser lithotripsy of ureteric calculus (06/28/2011), Carpal tunnel release, Knee replacement, Operative procedure on hand. Medications B-Complex SR, Oral, Daily busPIRone, Oral, BID dicyclomine 10 mg Cap nortriptyline 10 mg Cap pantoprazole, Daily propranolol Synthroid, Oral, Daily Allergies Avelox (Unknown) Peppers (Unknown) Percocet 5/325 (Unknown) sulfa drugs (Unknown) Social History Alcohol - Denies Alcohol Use, 02/17/2019 Substance Abuse - Denies Substance Abuse, 02/17/2019 Tobacco - Denies Tobacco Use, 02/22/2019 Never (less than 100 in lifetime) Tobacco Use:., 11/23/2021 Never (less than 100 in lifetime) Tobacco Use:., 02/28/2020 Family History Diabetes mellitus type 2: Mother. Heart disease: Mother. Lab Results Ambulatory Point of Care Results Bilirubin Urine Dipstick: Negative (11/25/22 13:15:00) Blood Urine Dipstick: Negative (11/25/22 13:15:00) Glucose Urine Dipstick: Negative (11/25/22 13:15:00) Ketones Urine Dipstick: Negative (11/25/22 13:15:00) Leukocytes Urine Dipstick: 1+ Small (11/25/22 13:15:00) Nitrite Urine Dipstick: Negative (11/25/22 13:15:00) Specific [place] Urine Dipstick: 1.015 (11/25/22 13:15:00) Urine Appearance Urine Dipstick: Clear (11/25/22 13:15:00) Urine Color Urine Dipstick: Yellow (11/25/22 13:15:00) Urobilinogen Urine Dipstick: Normal 0.2-1 EU/dl (11/25/22 13:15:00) pH Urine Dipstick: 6 (11/25/22 (more content not included)... [facility] Comment on above: Result Comment: Elec tronically Signed By: Natalie CARLTON MD\.br\Date and Time Signed: 11/25/22 14:28 EDT\.br\Electronically Co-Signed By: Lidia Smith.br\Date and Time Co-Signed: 11/25/22 14:27 EDT RAD - MISCon 11-22-2022 RAD - MIS [id number]:127 [facility] RAD - MIS [id number]:127 [facility] Ewa 10-17-2022 MAKSIM Telephone (NEURAV) RUFINO COLLINS ([id number]) 1940 F Date Time Provider Department 10/17/22 RACHID ODELL During your visit today, we recorded the following information about you: Evelio Castillo 10/17/2022 11:23 AM Signed Rufino Collins called today. : 1940 Allergies: Moxifloxacin, Percocet [Oxycodone-Acetaminop hen], Capsaicin, Pravachol [Pravastatin Sodium], Cephalexin, Clavulanic Acid, Flagyl [Metronidazole], Hot Peppers [Other], Levofloxacin, and Sulfa (Sulfonamide Antibiotics) (home) [phone] (cell) Reason for call: Patient says that she is doing well on the Nortriptyline 10 MG and is requesting that a 90 day prescription be sent over to her pharmacy. [facility]. She says that she is picking up the last of her 30 day supply today. She would like a call on her home phone if this can be sent in and/or if there is any questions. Patient last appointment: 08/20/2022 The patients preferred pharmacy has been captured for this encounter? Yes E- [id number] [place] [address] - [address] [facility] [phone] [place] [address] ERNESTINE Choi October 17, 2022 11:20 AM Allergies As of Date: 10/17/2022 Noted Allergy Reaction MOXIFLOXACIN 12/21/2003 5 - Intolerance Comments: thought I was having a heart attack w/ Avelox PERCOCET (OXYCODONE-ACETAMINOP HEN)12/02/2006 5 - Intolerance Comments: Drops BP CAPSAICIN 02/09/2015 9 - Itching PRAVACHOL (PRAVASTATIN SODIUM) 06/15/2009 5 - Intolerance Comments: Muscle cramps CEPHALEXIN 07/22/2016 9 - Itching CLAVULANIC ACID 07/22/2016 9 - Itching FLAGYL (METRONIDAZOLE) 07/22/2016 9 - Itching hot peppers [Other] 12/19/2006 9 - Itching LEVOFLOXACIN 07/22/2016 9 - Itching SULFA (SULFONAMIDE ANTIBIOTICS) 12/21/2003 8 - GI Upset Date Reviewed: 08/20/2022 Reviewed by: Brittani García LPN - Fully Assessed Reason for Visit: Patient Question [8027] Cmt: Medication Question Prescriptions as of 10/17/2022 - nortriptyline (PAMELOR) 10 mg capsule Take 1 capsule by mouth daily at bedtime. - propranolol (INDERAL) 10 mg tablet Take 1 tablet by mouth four times daily. - Acetaminophen-Caffein e (TENSION HEADACHE PAIN RELIEVER) 500-65 mg tab Take 2 tablets by mouth twice daily. 2 tablets in am, 1 tablet after lunch - Vitamin E, dl, acetate, (VITAMIN E) 400 unit capsule Take 400 Units by mouth as needed. - vit B complx-folic ac-C-biotin 1 mg-100 mg- 300 mcg tab Take by mouth. - Cinnamon Bark 500 mg cap Take 2 capsules by mouth once daily. - loratadine-pseudoephe drine ER (CLARITIN-D 24) 10-240 mg Tb24 Take 1 tablet by mouth once daily. - busPIRone (BUSPAR) 15 mg tablet Take 1 tablet by mouth twice daily. - Cholecalciferol, Vitamin D3, 10,000 unit cap Take by mouth once daily. - pantoprazole DR (PROTONIX) 40 mg tablet Take 40 mg by mouth once daily. - levothyroxine (SYNTHROID) 100 mcg tablet Take 1 tablet by mouth daily before breakfast. - VITAMIN B COMPLEX (B COMPLEX-100 ORAL) Take 1 capsule by mouth once daily. Patient denies taking this any longer Problem List As Of Date 10/17/2022 Noted Resolved Hearing Loss, Sensorineural, Unilateral [H90.5] 05/16/2009 Osteoarth NOS-l/leg [[id number]] 05/29/2010 S/P TKR (total knee replacement) using cement [*02/05/2011 Hypothyroidism [E03.9] 02/26/2015 Hypertension [I10] 02/26/2015 Dyspnea on exertion [R06.09] 02/26/2015 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] 02/26/2015 Bradycardia [R00.1] 02/26/2015 Pulmonary embolus (HCC) [I26.99] 03/02/2015 Dysthymia [F34.1] 07/22/2016 Carpal tunnel syndrome of right wrist [G56.01] 05/30/2020 Encounter Status:Closed by EVELIO CASTILLO on 10/17/[address] [facility] No Panel Informationon 10-09 BLANK _ [facility] ic Implant Date 02/27/2015 [facility] in Model 2088TC Tendril STS [facility] PACEMAKER REMOTE CHECKon AV Delay Adaptive Paced Minimum (ms) 150 ms [facility] favian AV Delay Adaptive Sensed Minimum (ms) 130 ms [facility] in AV Delay Paced (ms) 100 ms [facility] AV Delay Sensed (ms) 100 ms [facility] Battery Voltage (volts) 2.9 V [facility] Dirk RA Pacing Amplitude (volts) 2.0 V [facility] Dirk RA Pacing Polarity BI [facility] Dirk RA Pacing Pulse Width (ms) 0.5 ms [facility] c Dirk RA Sensing Amplitude (mvolts) 0.4 mV [facility] favian Dirk RA Sensing Polarity BI [facility] Dirk RV Pacing Amplitude (volts) 1.5 V [facility] Dirk RV Pacing Polarity BI [facility] Dirk RV Pacing Pulse Width (ms) 0.5 ms [facility] Dirk RV Sensing Amplitude (mvolts) 2.0 mV [facility] favian Dirk RV Sensing Polarity BI [facility] Lead1 Mfg STJ [facility] ic Lead2 Mfg STJ [facility] ic Location RA [facility] Location RV [facility] Lower Rate (bpm) 60 {beats}/min [facility] Max Sensor Rate (bmp) 120 {beats}/min [facility] Model 2240 Assurity [facility] lin Pacing Mode DDD [facility] favian PM-Device Mfg STJ [facility] linic PM-Percent Pacing (A) 5.1 % [facility] PM-Percent Pacing (V) 99.0 % [facility] RA Bipolar Impedance ohms 460 ohm [facility] RV Bipolar Impedance ohms 860 ohm [facility] Serial Number [id number] [facility] linic Serial Number [id number] [facility] linic Serial Number [id number] [facility] linic Thresh RA Capture Amplitude (volts) 1.0 V [facility] ic Thresh RA Capture Duration (ms) 0.5 ms [facility] Thresh RA Sensing Amplitude (mvolts) 0.5 mV [facility] favian Thresh RV Capture Amplitude (volts) 1.25 V [facility] Thresh RV Capture Duration (ms) 0.5 ms [facility] Thresh RV Sensing Amplitude (mvolts) 12.0 [facility] Tracking Rate (bpm) 120 {beats}/min [facility] CNOVon 08-20-2022 CNOV Office Visit (NEURAV ) RUFINO COLLINS ([id number]) 1940 F Date Time Provider Department 08/20/22 1:40 PM RACHID ODELL During your visit today, we recorded the following information about you: Pulse Blood pressure 82/minute 155/79 Rachid Odell MD 08/20/2022 2:02 PM Signed NEUROLOGY PROGRESS NOTE Rufino Collins is a 82 year old female. Who has a history of tremors comes in for follow up. Interval History Rufino Collins is a 82 year old female, with a history of essential tremors, peripheral neuropathy comes in today complaining of tremors. She was a patient of Dr. Gary before and this is the first time I am seeing this patient. About 2 years ago she started to have tremors she states that wakes her up in the middle of the night. Sometimes she has a hard time falling back asleep because of the tremors. She has become anxious, feels fatigued during the day she attributes because of lack of sleep the night before. She was tried on Mysoline in the past but did not work. She also was tried on atenolol to no avail. She has had peripheral neuropathy for quite some time now having numbness and tingling of the feet sometimes difficulty with balance. Patient doing very well. Patient continues to do well on propranolol and this will be refilled. Last June 2022 she was doing some work or chores the washing machine and out of the blue she started feeling vertiginous. The whole room was spinning. She had to go to the hospital was worked up CT CT angiogram were unremarkable. They put her on meclizine however she was sleepy with it so this was discontinued. She does state that the vertigo has slowly and gradually lessening however she is very anxious that it might come back. She wants to try something for her anxiety. I will put her on nortriptyline 10 mg at bedtime as this may work for her vertigo as well. Nonetheless she does have a pacemaker she will be seeing her family doctor tomorrow an alternative drug I believe would be Lexapro if her family doctor does not approve of nortriptyline. We did talk about vestibular rehab as well but she declined. ACTIVE PROBLEM LIST Hearing Loss, Sensorineural, Unilateral Osteoarthrosis, Unspecified Whether Generalized Or Localized, Lower Leg S/P Tkr (Total Knee Replacement) Using Cement Hypothyroidism Hypertension Dyspnea On Exertion Mobitz Type 2 Second Degree Heart Block Bradycardia Pulmonary Embolus (Hcc) Dysthymia Carpal Tunnel Syndrome of Right Wrist PAST SURGICAL HISTORY Procedure Laterality Date ADENOIDECTOMY PRIMARY Adenoidectomy CHG HYSTERECTOMY W/ 1978 CHOLECYSTECTOMY 1972 PAST SURGICAL HISTORY OF lens of both eye replaced PAST SURGICAL HISTORY OF 2006 left knee replaced PAST SURGICAL HISTORY OF orthoscopic knee surgery twice on left knee PAST SURGICAL HISTORY OF polyp removed from left side of nose PAST SURGICAL HISTORY OF right pinky cut off and repaired PAST SURGICAL HISTORY OF 06/26/2009 BAHA implant TONSILLECTOMY PRIMARY/SECONDARY Tonsillectomy Current Outpatient Medications on File Prior to Visit Medication Sig Acetaminophen-Caffein e (TENSION HEADACHE PAIN RELIEVER) 500-65 mg tab Take 2 tablets by mouth twice daily. 2 tablets in am, 1 tablet after lunch Vitamin E, dl, acetate, (VITAMIN E) 400 unit capsule Take 400 Units by mouth as needed. vit B complx-folic ac-C-biotin 1 mg-100 mg- 300 mcg tab Take by mouth. Cinnamon Bark 500 mg cap Take 2 capsules by mouth once daily. loratadine-pseudoephe drine ER (CLARITIN-D 24) 10-240 mg Tb24 Take 1 tablet by mouth once daily. busPIRone (BUSPAR) 15 mg tablet Take 1 tablet by mouth twice daily. Cholecalciferol, Vitamin D3, 10,000 unit cap Take by mouth once daily. pantoprazole DR (PROTONIX) 40 mg tablet Take 40 mg by mouth once daily. levothyroxine (SYNTHROID) 100 mcg tablet Take 1 tablet by mouth daily before breakfast. (Patient taking differently: Take 112 mcg by mouth daily before breakfast.) VITAMIN B COMPLEX (B COMPLEX-100 ORAL) Take 1 capsule by mouth once daily. Patient denies taking this any longer Current Facility-Administered Medications on File Prior to Visit Medication propranolol 10 mg tab(s) (INDERAL) Social History Tobacco Use Smoking status: Never Smokeless tobacco: Never Substance Use Topics Alcohol use: No Drug use: No family history includes Cancer in her mother; Diabetes in her mother; Heart in her mother; Hypertension in her mother; Lipids in her mother. GENERAL:No weight loss, malaise or fevers., SEE HPI HEENT:No changes in hearing or vision, no nose bleeds or other nasal problems NECK:Negative for lumps, goiter, pain and significant neck swelling RESPIRATORY: Negative for cough, wheezing or shortness of breath. CARDIOVASCULAR: Negative for chest pain, leg swelling or palpitations. GASTROINTESTINAL: Negativ (more content not included)... [facility] RUFIN[facility] COLL[facility] ([id number]) 1940 F Date Time Provider Department 08/15/22 RACHID ODELL 4CQ During your visit today, we recorded the following information about you: Karla Jackson 08/15/2022 9:55 AM Signed Call center called today. : 1940 Allergies: Moxifloxacin, Percocet [Oxycodone-Acetaminop hen], Capsaicin, Pravachol [Pravastatin Sodium], Cephalexin, Clavulanic Acid, Flagyl [Metronidazole], Hot Peppers [Other], Levofloxacin, and Sulfa (Sulfonamide Antibiotics) (home) [phone] (cell) Reason for call: The appointment center called with patient on line but lost patient when transferring. She is scheduled 08/20 but incorrectly scheduled as new instead of established patient. Patient is asking if this appointment can be changed to Virtual Visit instead of in person. She is established and does not want to wait to be seen. Please review and advise. Patient last appointment: Visit date not found The patients preferred pharmacy has been captured for this encounter? not asked Karla Padilla Pss 08/19/2022 12:52 PM Signed Spoke with patient. She is scheduled for an in office visit with Dr. Odell 08/20. Allergies As of Date: 08/15/2022 Noted Allergy Reaction MOXIFLOXACIN 12/21/2003 5 - Intolerance Comments: thought I was having a heart attack w/ Avelox PERCOCET (OXYCODONE-ACETAMINOP HEN)12/02/2006 5 - Intolerance Comments: Drops BP CAPSAICIN 02/09/2015 9 - Itching PRAVACHOL (PRAVASTATIN SODIUM) 06/15/2009 5 - Intolerance Comments: Muscle cramps CEPHALEXIN 07/22/2016 9 - Itching CLAVULANIC ACID 07/22/2016 9 - Itching FLAGYL (METRONIDAZOLE) 07/22/2016 9 - Itching hot peppers [Other] 12/19/2006 9 - Itching LEVOFLOXACIN 07/22/2016 9 - Itching SULFA (SULFONAMIDE ANTIBIOTICS) 12/21/2003 8 - GI Upset Date Reviewed: 05/01/2022 Reviewed by: Tea Wilkerson Ma - Fully Assessed Reason for Visit: Appointment [186] Prescriptions as of 08/19/2022 - propranolol (INDERAL) 10 mg tablet Take 1 tablet by mouth four times daily. - Acetaminophen-Caffein e (TENSION HEADACHE PAIN RELIEVER) 500-65 mg tab Take 2 tablets by mouth twice daily. 2 tablets in am, 1 tablet after lunch - Vitamin E, dl, acetate, (VITAMIN E) 400 unit capsule Take 400 Units by mouth as needed. - vit B complx-folic ac-C-biotin 1 mg-100 mg- 300 mcg tab Take by mouth. - Cinnamon Bark 500 mg cap Take 2 capsules by mouth once daily. - loratadine-pseudoephe drine ER (CLARITIN-D 24) 10-240 mg Tb24 Take 1 tablet by mouth once daily. - busPIRone (BUSPAR) 15 mg tablet Take 1 tablet by mouth twice daily. - Cholecalciferol, Vitamin D3, 10,000 unit cap Take by mouth once daily. - pantoprazole DR (PROTONIX) 40 mg tablet Take 40 mg by mouth once daily. - levothyroxine (SYNTHROID) 100 mcg tablet Take 1 tablet by mouth daily before breakfast. - VITAMIN B COMPLEX (B COMPLEX-100 ORAL) Take 1 capsule by mouth once daily. 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] 05/29/2010 S/P TKR (total knee replacement) using cement [*02/05/2011 Hypothyroidism [E03.9] 02/26/2015 Hypertension [I10] 02/26/2015 Dyspnea on exertion [R06.09] 02/26/2015 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] 02/26/2015 Bradycardia [R00.1] 02/26/2015 Pulmonary embolus (HCC) [I26.99] 03/02/2015 Dysthymia [F34.1] 07/22/2016 Carpal tunnel syndrome of right wrist [G56.01] 05/30/2020 Encounter Status:Closed by CORTNEY BROWN on 08/19/22 [facility] 07-16-2022 [facility] Telephone (NIQ) RUFINO COLLINS ([id number]) 1940 F Date Time Provider Department 07/16/22 RACHID ODELL During your visit today, we recorded the following information about you: Aline Monk 07/16/2022 10:28 AM Signed Patient called stating she was at the [facility] ED last Friday for vertigo. The ER doctor recommended she see Dr Odell in person rather than virtual on 07/25. Transferred call to lead front desk agent to change appointment to an office visit. [facility] ED records available in [facility]. Brittani García LPN 07/16/2022 11:20 AM Signed Gave patient info to schedulers to reschedule for 40 minute appointment for hospital follow up. Allergies As of Date: 07/16/2022 Noted Allergy Reaction MOXIFLOXACIN 12/21/2003 5 - Intolerance Comments: thought I was having a heart attack w/ Avelox PERCOCET (OXYCODONE-ACETAMINOP HEN)12/02/2006 5 - Intolerance Comments: Drops BP CAPSAICIN 02/09/2015 9 - Itching PRAVACHOL (PRAVASTATIN SODIUM) 06/15/2009 5 - Intolerance Comments: Muscle cramps CEPHALEXIN 07/22/2016 9 - Itching CLAVULANIC ACID 07/22/2016 9 - Itching FLAGYL (METRONIDAZOLE) 07/22/2016 9 - Itching hot peppers [Other] 12/19/2006 9 - Itching LEVOFLOXACIN 07/22/2016 9 - Itching SULFA (SULFONAMIDE ANTIBIOTICS) 12/21/2003 8 - GI Upset Date Reviewed: 05/01/2022 Reviewed by: Tea Wilkerson Ma - Fully Assessed Reason for Visit: Patient Update [1234] Prescriptions as of 01/10/2023 - nortriptyline (PAMELOR) 10 mg capsule Take 1 capsule by mouth daily at bedtime. - propranolol (INDERAL) 10 mg tablet Take 1 tablet by mouth four times daily. - Acetaminophen-Caffein e (TENSION HEADACHE PAIN RELIEVER) 500-65 mg tab Take 2 tablets by mouth twice daily. 2 tablets in am, 1 tablet after lunch - Vitamin E, dl, acetate, (VITAMIN E) 400 unit capsule Take 400 Units by mouth as needed. - vit B complx-folic ac-C-biotin 1 mg-100 mg- 300 mcg tab Take by mouth. - Cinnamon Bark 500 mg cap Take 2 capsules by mouth once daily. - loratadine-pseudoephe drine ER (CLARITIN-D 24) 10-240 mg Tb24 Take 1 tablet by mouth once daily. - busPIRone (BUSPAR) 15 mg tablet Take 1 tablet by mouth twice daily. - Cholecalciferol, Vitamin D3, 10,000 unit cap Take by mouth once daily. - pantoprazole DR (PROTONIX) 40 mg tablet Take 40 mg by mouth once daily. - levothyroxine (SYNTHROID) 100 mcg tablet Take 1 tablet by mouth daily before breakfast. - VITAMIN B COMPLEX (B COMPLEX-100 ORAL) Take 1 capsule by mouth once daily. Patient denies taking this any longer Problem List As Of Date 07/16/2022 Noted Resolved Hearing Loss, Sensorineural, Unilateral [H90.5] 05/16/2009 Osteoarth NOS-l/leg [[id number]] 05/29/2010 S/P TKR (total knee replacement) using cement [*02/05/2011 Hypothyroidism [E03.9] 02/26/2015 Hypertension [I10] 02/26/2015 Dyspnea on exertion [R06.09] 02/26/2015 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] 02/26/2015 Bradycardia [R00.1] 02/26/2015 Pulmonary embolus (HCC) [I26.99] 03/02/2015 Dysthymia [F34.1] 07/22/2016 Carpal tunnel syndrome of right wrist [G56.01] 05/30/2020 Encounter Status:Closed by ALINE MONK on 01/10/[address] [facility] APTTon 07-12-2022 aPTT Coag (Bld) [Time] 29.9 s [facility] [employer] [facility] Comment on above: Effective 03/15/2020: Heparin Therapeutic Range: 64.0 98.0 seconds. Brain Natriuretic Peptideon 07-12-2022 Natriuretic peptide B (Bld) [Mass/Vol] 265 pg/mL [facility] Comment on above: NT-pro BNP ACUTE Int erpretive Guidelines: Age Cutoff for Heart Failure Less than 50 yrs 450 pg/mL 50-75 yrs 900 pg/mL Greater than 75 yrs 1800 pg/mL NT-pro BNP NON-ACUTE Interpretive Guidelines: Age Reference Range Less than 74 yrs 0-125 pg/mL Greater than 74 yrs 0-450 pg/mL Other possible causes of an elevated NT-proBNP include: cardiac ischemia, acute coronary syndrome, COPD, pneumonia, atrial fibrillation, pulmonary emboli, pulmonary hypertension, pericarditis Reference: Dharmesh Hoyt, et al. NT-proBNP testing for diagnosis and short-term prognosis in acute destabilized HF: an international pooled analysis of 1256 patients. Heart Journal. 2006;27:330-337 CBC With Platelet and Differ entialon 07-12-2022 Basophils (Bld) [#/Vol] 0.1 10*3/uL Normal 0.0-0.2 [facility] Comment on above: Performed By: #### C BCWD #### [facility] [address] [place] [address] Basophils/100 WBC (Bld) 1.3 % Normal [facility] Comment on above: Performed By: #### C BCWD #### [facility] [address] [place] [address] Eosinophils (Bld) [#/Vol] 0.1 10*3/uL Normal 0.0-0.7 [facility] Comment on above: Performed By: #### C BCWD #### [facility] [address] [place] [address] Eosinophils/100 WBC (Bld) 1.7 % Normal [facility] Comment on above: Performed By: #### C BCWD #### [facility] [address] [place] [address] Erythrocyte distribution width (RBC) [Ratio] 14.0 % Normal 11.5-14.5 [facility] Comment on above: Performed By: #### C BCWD #### [facility] [address] [place] [address] Hematocrit (Bld) [Volume fraction] 43.9 % Normal 37.0-47.0 [facility] Comment on above: Performed By: #### C BCWD #### [facility] [address] [place] [address] Hemoglobin (Bld) [Mass/Vol] 14.7 g/dL Normal 12.0-16.0 [facility] Comment on above: Performed By: #### C BCWD #### [facility] [address] [place] [address] Lymphocytes (Bld) [#/Vol] 2.6 10*3/uL Normal 1.0-4.8 [facility] Comment on above: Performed By: #### C BCWD #### [facility] [address] [place] [address] Lymphocytes/100 WBC (Bld) 35.3 % Normal [facility] Comment on above: Performed By: #### C BCWD #### [facility] [address] [place] [address] MCH (RBC) [Entitic mass] 29.8 pg Normal 27.0-31.3 [facility] Comment on above: Performed By: #### C BCWD #### [facility] [address] [place] [address] MCHC 33.4 % Normal 33.0-37.0 [facility] Comment on above: Performed By: #### C BCWD #### [facility] [address] [place] [address] MCV (RBC) [Entitic vol] 89.3 fL Normal 79.4-94.8 [facility] Comment on above: Performed By: #### C BCWD #### [facility] [address] [place] [address] Monocytes (Bld) [#/Vol] 0.6 10*3/uL Normal 0.2-0.8 [facility] Comment on above: Performed By: #### C BCWD #### [facility] [address] [place] [address] Monocytes/100 WBC (Bld) 8.4 % Normal [facility] Comment on above: Performed By: #### C BCWD #### [facility] [address] [place] [address] Neutrophils (Bld) [#/Vol] 4.0 10*3/uL Normal 1.4-6.5 [facility] Comment on above: Performed By: #### C BCWD #### [facility] [address] [place] [address] Neutrophils/100 WBC (Bld) 53.3 % Normal [facility] Comment on above: Performed By: #### C BCWD #### [facility] [address] [place] [address] Platelets (Bld) [#/Vol] 238 10*3/uL Normal 130-400 [facility] Comment on above: Performed By: #### C BCWD #### [facility] [address] [place] [address] RBC (Bld) [#/Vol] 4.91 10*6/uL Normal 4.20-5.40 [facility] Comment on above: Performed By: #### C BCWD #### [facility] [address] [place] [address] WBC (Bld) [#/Vol] 7.4 10*3/uL Normal 4.8-10.8 [facility] Comment on above: Performed By: #### C BCWD #### [facility] [address] [place] [address] CBC with Auto Differentialon 07-12-2022 Basophils (Bld) [#/Vol] 0.1 10*3/uL 0.0 - 0.2 K/uL [facility] Basophils/100 WBC (Bld) 1.3 % [facility] Eosinophils (Bld) [#/Vol] 0.1 10*3/uL 0.0 - 0.7 K/uL [facility] Eosinophils/100 WBC (Bld) 1.7 % [facility] Hematocrit (Bld) [Volume fraction] 43.9 % 37.0 - 47.0 % [facility] Hemoglobin (Bld) [Mass/Vol] 14.7 g/dL 12.0 - 16.0 g/dL [facility] Lymphocytes (Bld) [#/Vol] 2.6 10*3/uL 1.0 - 4.8 K/uL [facility] Lymphocytes/100 WBC (Bld) 35.3 % [facility] MCH (RBC) [Entitic mass] 29.8 pg 27.0 - 31.3 pg [facility] MCHC (RBC) [Mass/Vol] 33.4 % 33.0 - 37.0 % [facility] MCV (RBC) [Entitic vol] 89.3 fL 79.4 - 94.8 fL [facility] Monocytes (Bld) [#/Vol] 0.6 10*3/uL 0.2 - 0.8 K/uL [facility] Monocytes/100 WBC (Bld) 8.4 % [facility] Neutrophils Absolute 4.0 K/uL 1.4 - 6.5 K/uL [facility] Neutrophils/100 WBC (Bld) 53.3 % [facility] Platelet distribution width (Bld) [Ratio] 14.0 % 11.5 - 14.5 % [facility] Platelets (Bld) [#/Vol] 238 10*3/uL 130 - 400 K/uL [facility] RBC (Bld) [#/Vol] 4.91 10*6/uL [facility] WBC (Bld) [#/Vol] 7.4 10*3/uL 4.8 - 10.8 K/uL [facility] CKon 07-12-2022 CK [Catalytic activity/Vol] 29 U/L 0 - 170 U/L [facility] Comprehensive Metabolic Pane annalise 07-12-2022 Anion gap [Moles/Vol] 11 mmol/L Normal 9-15 [facility] Comment on above: Performed By: #### C BCWD #### [facility] [address] [place] [address] Chloride [Moles/Vol] 102 mmol/L Normal 95-107 [facility] Comment on above: Performed By: #### C BCWD #### [facility] [address] [place] [address] Potassium [Moles/Vol] 4.3 mmol/L Normal 3.4-4.9 [facility] Comment on above: Performed By: #### C BCWD #### [facility] [address] [place] [address] Sodium [Moles/Vol] 139 mmol/L Normal 135-144 [facility] Comment on above: Performed By: #### C BCWD #### [facility] [address] [place] [address] Albumin [Mass/Vol] 3.9 g/dL Normal 3.5-4.6 [facility] Comment on above: Performed By: #### C BCWD #### [facility] [address] [place] [address] ALP [Catalytic activity/Vol] 81 U/L Normal 40-130 [facility] Comment on above: Performed By: #### C BCWD #### [facility] [address] [place] [address] ALT [Catalytic activity/Vol] 10 U/L Normal 0-33 [facility] Comment on above: Performed By: #### C BCWD #### [facility] [address] [place] [address] AST [Catalytic activity/Vol] 14 U/L Normal 0-35 [facility] Comment on above: Performed By: #### C BCWD #### [facility] [address] [place] [address] Bilirubin [Mass/Vol] 0.3 mg/dL Normal 0.2-0.7 [facility] Comment on above: Performed By: #### C BCWD #### [facility] [address] [place] [address] Calcium [Mass/Vol] 9.6 mg/dL Normal 8.5-9.9 [facility] Comment on above: Performed By: #### C BCWD #### [facility] [address] [place] [address] CO2 [Moles/Vol] 26 mmol/L Normal 20-31 [facility] Comment on above: Performed By: #### C BCWD #### [facility] [address] [place] [address] Creatinine [Mass/Vol] 0.78 mg/dL Normal 0.50-0.90 [facility] Comment on above: Performed By: #### C BCWD #### [facility] [address] [place] [address] GFR >60.0 Normal >60 [facility] Comment on above: Result Comment: Osman atric calculator link https://www.kidney.org/professionals/kdoqi/gfr_calculatorped Effective Feb 11, 2022 These results are not intended for use in patients <18 years of age. eGFR results are calculated without a race factor using the 2020 CKD-EPI equation. Careful clinical correlation is recommended, particularly when comparing to results calculated using previous equations. The CKD-EPI equation is less accurate in patients with extremes of muscle mass, extra-renal metabolism of creatinine, excessive creatinine ingestion, or following therapy that affects renal tubular secretion. Performed By: #### C BCWD #### [facility] [address] [place] [address] Globulin (S) [Mass/Vol] 3.1 g/dL Normal 2.3-3.5 [facility] Comment on above: Performed By: #### C BCWD #### [facility] [address] [place] [address] Glucose [Mass/Vol] 135 mg/dL Critically high 70-99 M [facility] Comment on above: Performed By: #### C BCWD #### [facility] [address] [place] [address] Protein [Mass/Vol] 7.0 g/dL Normal 6.3-8.0 [facility] Comment on above: Performed By: #### C BCWD #### [facility] [address] [place] [address] Urea nitrogen [Mass/Vol] 14 mg/dL Normal 8-23 [facility] Comment on above: Performed By: #### C BCWD #### [facility] [address] [place] [address] Albumin [Mass/Vol] 3.9 g/dL 3.5 - 4.6 g/dL [facility] ALP (Bld) [Catalytic activity/Vol] 81 U/L 40 - 130 U/L [facility] ALT [Catalytic activity/Vol] 10 U/L 0 - 33 U/L [facility] Anion gap [Moles/Vol] 11 mmol/L [facility] AST [Catalytic activity/Vol] 14 U/L 0 - 35 U/L [facility] Bilirubin [Mass/Vol] 0.3 mg/dL 0.2 - 0.7 mg/dL [facility] Calcium [Mass/Vol] 9.6 mg/dL 8.5 - 9.9 mg/dL [facility] Chloride [Moles/Vol] 102 mmol/L [facility] CO2 [Moles/Vol] 26 mmol/L [facility] Creatinine [Mass/Vol] 0.78 mg/dL 0.50 - 0.90 mg/dL [facility] GFR/1.73 sq M.predicted MDRD (S/P/Bld) [Vol rate/Area] 60 - PINF [facility] Comment on above: Pediatric calculator link https://www.kidney.org/professionals/kdoqi/gfr_calculatorped Effective Feb 11, 2022 These results are not intended for use in patients <18 years of age. eGFR results are calculated without a race factor using the 2020 CKD-EPI equation. Careful clinical correlation is recommended, particularly when comparing to results calculated using previous equations. The CKD-EPI equation is less accurate in patients with extremes of muscle mass, extra-renal metabolism of creatinine, excessive creatinine ingestion, or following therapy that affects renal tubular secretion. Globulin (S) [Mass/Vol] 3.1 g/dL 2.3 - 3.5 g/dL [facility] Glucose [Mass/Vol] 135 mg/dL High 70 - 99 mg/dL [facility] Interpretation and review of laboratory results Abnormal [facility] Potassium [Moles/Vol] 4.3 mmol/L [facility] Protein [Mass/Vol] 7.0 g/dL 6.3 - 8.0 g/dL [facility] Sodium [Moles/Vol] 139 mmol/L [facility] Urea nitrogen (BldV) [Mass/Vol] 14 mg/dL 8 - 23 mg/dL [facility] Creatine Kinaseon 07-12-2022 CK [Catalytic activity/Vol] 29 U/L Normal 0-170 [facility] Comment on above: Performed By: #### C PK #### [facility] [address] [place] [address] Culture, Bloodon 07-12-2022 Microscopic examination of blood, culture ORDER#: [id number] ORDERED BY: KM KIRBY SOURCE: Blood COLLECTED: 07/12/22 16:42 ANTIBIOTICS AT KASHIF.: RECEIVED : 07/12/22 17:12 Culture, Blood FINAL 07/17/22 20:15 No growth after 5 days of incubation. Normal [facility] Comment on above: Performed By: #### C XBL #### [facility] [address] [place] [address] Culture, Blood 2on 3 Culture, Blood 2 ORDER#: [id number] ORDERED BY: KM KIRBY SOURCE: Blood COLLECTED: 07/12/22 16:42 ANTIBIOTICS AT KASHIF.: RECEIVED : 07/12/22 17:12 Culture, Blood 2 FINAL 07/17/22 20:15 No growth after 5 days of incubation. Normal [facility] Comment on above: Performed By: #### C XBL2 #### [facility] [address] [place] [address] High Sensitivity CRPon 07-12 High Sensitivity CRP 8.9 mg/L Critically high 0.0-5.0 [facility] Comment on above: Performed By: #### H SCRP #### [facility] [address] [place] [address] High sensitivity CRPon 07-12 CRP High Sensitivity 8.9 mg/L High 0.0 - 5.0 mg/L [facility] Interpretation and review of laboratory results Abnormal [facility] Lactic Acidon 07-12-2022 Lactate [Moles/Vol] 1.0 mmol/L Normal 0.5-2.2 [facility] Comment on above: Performed By: #### L ACID #### [facility] [address] [place] [address] Lactate [Moles/Vol] 1 mmol/L 0.5 - 2. 2 mmol/L [facility] Magnesiumon 07-12-2022 Magnesium [Mass/Vol] 1.9 mg/dL Normal 1.7-2.4 [facility] Comment on above: Performed By: #### C BCWD #### [facility] [address] [place] [address] Magnesium [Mass/Vol] 1.9 mg/dL 1.7 - 2.4 mg/dL [facility] Microscopic Urinalysison Bacteria, UA Negative Negative /HPF [facility] Epithelial Cells, UA 0-2 [facility] Hyaline Casts, UA 0-1 [facility] RBC, UA 0-2 [facility] WBC, UA 0-2 [facility] No Panel Informationon 07-12 [facility] [place] Partial Thromboplastin Timeo n 07-12-2022 aPTT Coag (Bld) [Time] 29.9 s Normal 24.4-36.8 [facility] Comment on above: Result Comment: Effe ctive 03/15/2020: Heparin Therapeutic Range: 64.0 ? 98.0 seconds. Performed By: #### C BCWD #### [facility] [address] [place] [address] Procalcitoninon 07-12-2022 Procalcitonin 0.06 ng/mL Normal 0.00-0.15 [facility] Comment on above: Result Comment: Susp ected Sepsis: Low likelihood of sepsis <.50 ng/mL Increased likelihood of sepsis 0.50-2.00 ng/mL Antibiotics encouraged High risk of sepsis/shock >2.00 ng/mL Antibiotics strongly encouraged Suspected Lower Respiratory Tract Infections: Low likelihood of bacterial infection <0.24 ng/mL Increased likelihood of bacterial infection >0.24 ng/mL Antibiotics encouraged With successful antibiotic therapy, PCT levels should decrease rapidly. (Half-life of 24 to 36 hours.) Procalcitonin values from samples collected within the first 6 hours of systemic infection may still be low. Retesting may be indicated. Values from day 1 and day 4 can be entered into the Change in Procalcitonin Calculator to determine the patient's Mortality Risk Prognosis (www.innqai-pck-uyjhkgdqgi.TravelMuse) In healthy neonates, plasma Procalcitonin (PCT) concentrations increase gradually after , reaching peak values at about 24 hours of age then decrease to normal values below 0.5 ng/mL by 48-72 hours of age. Performed By: #### C BCWD #### [facility] [address] [facility] [address] Procalcitonin 0.06 ng/mL 0.00 - 0.15 ng/mL [facility] Comment on above: Suspected Sepsis: Low likelihood of sepsis <.50 ng/mL Increased likelihood of sepsis 0.50-2.00 ng/mL Antibiotics encouraged High risk of sepsis/shock >2.00 ng/mL Antibiotics strongly encouraged Suspected Lower Respiratory Tract Infections: Low likelihood of bacterial infection <0.24 ng/mL Increased likelihood of bacterial infection >0.24 ng/mL Antibiotics encouraged With successful antibiotic therapy, PCT levels should decrease rapidly. (Half-life of 24 to 36 hours.) Procalcitonin values from samples collected within the first 6 hours of systemic infection may still be low. Retesting may be indicated. Values from day 1 and day 4 can be entered into the Change in Procalcitonin Calculator to determine the patient's Mortality Risk Prognosis ([email or web address].vuwtsr-lnu-xxyuuxygbw.com) In healthy neonates, plasma Procalcitonin (PCT) concentrations increase gradually after , reaching peak values at about 24 hours of age then decrease to normal values below 0.5 ng/mL by 48-72 hours of age. Prothrombin Timeon 3 INR Coag (PPP) [Relative time] 1.0 {INR} Normal [facility] Comment on above: Performed By: #### P T #### [facility] [address] [place] [address] PT Coag (PPP) [Time] 13.6 s Normal 12.3-14.9 [facility] Comment on above: Performed By: #### P T #### [facility] [address] [place] [address] Protime-INRon 07-12-2022 INR Coag (Bld) [Relative time] 1.0 {INR} [facility] PT Coag (PPP) [Time] 13.6 s [facility] TSHon 07-12-2022 TSH Qn 1.610 m[IU]/L [facility] TSH w/out Reflexon TSH w/out Reflex 1.610 uIU/mL Normal 0.440-3.86 [facility] Comment on above: Performed By: #### T SH #### [facility] [address] [facility] [place] [address] Troponinon 07-12-2022 Troponin I.cardiac [Mass/Vol] ng/mL Normal 0.000-0.01 [facility] Comment on above: Result Comment: Meth odology by Troponin T. Performed By: #### C BCWD #### [facility] [address] [place] [address] Troponin I.cardiac [Mass/Vol] ng/mL 0.000 - 0.010 ng/mL [facility] Comment on above: Methodology by Telma Figueroa Urinalysis with Reflex to Cu ltureon 07-12-2022 Bilirubin Urine Negative Negative [facility] Blood, Urine Negative Negative [facility] Clarity, UA Clear Clear [facility] Color, UA Yellow Straw/Yellow [facility] Glucose, Ur Negative Negative mg/dL [facility] Interpretation and review of laboratory results Abnormal [facility] Ketones Ql (U) Negative Negative mg/dL [facility] Leukocyte esterase Test strip Ql (U) TRACE Abnormal Negative [facility] Nitrite, Urine Negative Negative [facility] pH, UA 5.0 5.0 - 9.0 [facility] Protein, UA Negative Negative mg/dL [facility] Specific [place], UA 1.011 1.005 - 1.030 [facility] Urine Reflex to Culture Not Indicated [facility] Urobilinogen, Urine 0.2 NINF [facility] Urinalysis, reflex to cultur elizabeth 07-12-2022 Urine Reflexed to Culture Not Indicated Normal [facility] Comment on above: Performed By: #### C BCWD #### [facility] [address] [place] [address] Bilirubin Ql (U) Negative Normal Negative [facility] Comment on above: Performed By: #### C BCWD #### [facility] [address] [place] [address] Clarity (U) Clear Normal Clear [facility] Comment on above: Performed By: #### C BCWD #### [facility] [address] [place] [address] Color (U) Yellow Normal Straw/[facility]ans [facility] Comment on above: Performed By: #### C BCWD #### [facility] [address] [place] [address] Glucose Ql (U) Negative Normal Negative [facility] Comment on above: Performed By: #### C BCWD #### [facility] [address] [place] [address] Hemoglobin Ql (U) Negative Normal Negative [facility] Comment on above: Performed By: #### C BCWD #### [facility] [address] [place] [address] Ketones Ql (U) Negative Normal Negative [facility] Comment on above: Performed By: #### C BCWD #### [facility] [address] [place] [address] Leukocyte esterase Test strip Ql (U) TRACE Abnormal Negative [facility] Comment on above: Performed By: #### C BCWD #### [facility] [address] [place] [address] Nitrite Ql (U) Negative Normal Negative [facility] Comment on above: Performed By: #### C BCWD #### [facility] [address] [place] [address] pH (U) 5.0 [pH] Normal 5.0-9.0 [facility] Comment on above: Performed By: #### C BCWD #### [facility] [address] [place] [address] Protein Ql (U) Negative Normal Negative [facility] Comment on above: Performed By: #### C BCWD #### [facility] [address] [place] [address] Specific gravity (U) [Rel density] 1.011 Normal 1.005-1.03 [facility] Comment on above: Performed By: #### C BCWD #### [facility] [address] [place] [address] Urobilinogen Qn (U) 0.2 {Nerissa'U}/dL Normal < 2.0 [facility] Comment on above: Performed By: #### C BCWD #### [facility] [address] [place] [address] Urine Microscopicon 07-13-19 23 Bacteria LM.HPF (Urine sed) [#/Area] Negative Normal Negative [facility] Comment on above: Performed By: #### U DIEGO #### [facility] [address] [place] [address] Urine Epithelial Cells Auto 0-2 Normal 0-5 [facility] Comment on above: Performed By: #### U DIEGO #### [facility] [address] [place] [address] Urine Hyaline Casts Auto 0-1 Normal 0-5 [facility] Comment on above: Performed By: #### U DIEGO #### [facility] [address] [place] [address] Urine RBC Auto 0-2 Normal 0-5 [facility] Comment on above: Performed By: #### U DIEGO #### [facility] [address] [place] [address] Urine WBC Auto 0-2 Normal 0-5 [facility] Comment on above: Performed By: #### U DIEGO #### [facility] [address] [place] [address] XR CHEST (2 VW)on 07-12-2022 XR CHEST (2 VW) EXAMINATION: TWO XRAY VIEWS OF THE CHEST 07/12/2022 6:18 pm COMPARISON: None. HISTORY: ORDERING SYSTEM PROVIDED HISTORY: dizziness; assess for pneumonia TECHNOLOGIST PROVIDED HISTORY: Reason for exam:->dizziness; assess for pneumonia What reading provider will be dictating this exam?->CRC FINDINGS: The lungs are without acute focal process. There is no effusion or pneumothorax. The cardiomediastinal silhouette is without acute process. The osseous structures are without acute process. IMPRESSION: No acute process. Mild elevation of right hemidiaphragm. Interpreted by: Salo Quinteros MD Signed by: Salo Quinteros MD 07/12/[address] [facility] No acute process. Mild elevation of right hemidiaphragm. [facility] RADIOLOGY EXAMINATION: TWO XRAY VIEWS OF THE CHEST 07/12/2022 6:18 pm COMPARISON: None. HISTORY: ORDERING SYSTEM PROVIDED HISTORY: dizziness; assess for pneumonia TECHNOLOGIST PROVIDED HISTORY: Reason for exam:->dizziness; assess for pneumonia What reading provider will be dictating this exam?->CRC FINDINGS: The lungs are without acute focal process. There is no effusion or pneumothorax. The cardiomediastinal silhouette is without acute process. The osseous structures are without acute process. [facility] RADIOLOGY Salo Quinteros MD - 07/12/2022 EXAMINATION: TWO XRAY VIEWS OF THE CHEST 07/12/2022 6:18 pm COMPARISON: None. HISTORY: ORDERING SYSTEM PROVIDED HISTORY: dizziness; assess for pneumonia TECHNOLOGIST PROVIDED HISTORY: Reason for exam:->dizziness; assess for pneumonia What reading provider will be dictating this exam?->CRC FINDINGS: The lungs are without acute focal process. There is no effusion or pneumothorax. The cardiomediastinal silhouette is without acute process. The osseous structures are without acute process. IMPRESSION: No acute process. Mild elevation of right hemidiaphragm. [facility] [employer] Phone: Radiology Study observation (narrative) [facility] [employer] Phone: XR CHEST (2 VW)Ordered By: David Quinteros on 07-12-2022 [facility] [employer] Phone: proBNPon 07-12-2022 Natriuretic peptide B (Bld) [Mass/Vol] 265 pg/mL Normal [facility] Comment on above: Result Comment: NT-p ro BNP ACUTE Interpretive Guidelines: Age Cutoff for Heart Failure Less than 50 yrs 450 pg/mL 50-75 yrs 900 pg/mL Greater than 75 yrs 1800 pg/mL NT-pro BNP NON-ACUTE Interpretive Guidelines: Age Reference Range Less than 74 yrs 0-125 pg/mL Greater than 74 yrs 0-450 pg/mL Other possible causes of an elevated NT-proBNP include: cardiac ischemia, acute coronary syndrome, COPD, pneumonia, atrial fibrillation, pulmonary emboli, pulmonary hypertension, pericarditis Reference: Dharmesh Hoyt, et al. NT-proBNP testing for diagnosis and short-term prognosis in acute destabilized HF: an international pooled analysis of 1256 patients. Heart Journal. 2006;27:330-337 Performed By: #### B NPPR #### [facility] [address] [facility] [address] GLYCOHEMOGLOBIN A1Con 2022 ADA RECOMMENDATION SEE BELOW Normal [facility] Comment on above: Result Comment: ADA RECOMMENDED LIMIT 4.0 - 6.0 ADA THERAPEUTIC TARGET < 7.0 ACTION SUGGESTED > 7.0 Performed By: #### A 1C ####[facility] [id number] [place] [id number] Kelly Glucose [Mass/Vol] 148 mg/dL Normal [facility] Comment on above: Performed By: #### A 1C ####[facility] [id number] [place] [id number]. Eber Kelly HbA1c (Bld) [Mass fraction] 6.8 % Critically high 4.5-6.2 [facility] Comment on above: Performed By: #### A 1C ####[facility] [address] [place], [place] [address]Or. Eber Kelly No Panel Informationon 07-03 BLANK _ [facility] Implant Date 02/27/2015 [facility] in Model 2088TC Tendril STS [facility] PACEMAKER REMOTE CHECKon AV Delay Adaptive Paced Minimum (ms) 150 ms [facility] Delay Adaptive Sensed Minimum (ms) 130 ms [facility] in AV Delay Paced (ms) 100 ms [facility] AV Delay Sensed (ms) 100 ms [facility] Battery Voltage (volts) 2.92 V [facility] Dirk RA Pacing Amplitude (volts) 2 V [facility] Dirk RA Pacing Polarity BI [facility] Dirk RA Pacing Pulse Width (ms) 0.5 ms [facility] Dirk RA Sensing Amplitude (mvolts) 0.4 mV [facility] favian Dirk RA Sensing Polarity BI [facility] Dirk RV Pacing Amplitude (volts) 1.5 V [facility] Dirk RV Pacing Polarity BI [facility] Dirk RV Pacing Pulse Width (ms) 0.5 ms [facility] Dirk RV Sensing Amplitude (mvolts) 2 mV [facility] favian Dirk RV Sensing Polarity BI [facility] Lead1 Mfg STJ [facility] ic Lead2 Mfg STJ [facility] ic Location RA [facility] Location RV [facility] Lower Rate (bpm) 60 {beats}/min [facility] Max Sensor Rate (bmp) 120 {beats}/min [facility] Model 2240 [employer]urity [facility] linic Pacing Mode DDD [facility] PM-Device Mfg STJ [facility] linic PM-Percent Pacing (A) 4.4 % [facility] PM-Percent Pacing (V) 99 % [facility] RA Bipolar Impedance ohms 450 ohm [facility] RV Bipolar Impedance ohms 840 ohm [facility] Serial Number [id number] [facility] linic Serial Number [id number] [facility] linic Serial Number [id number] [facility] linic Thresh RA Capture Amplitude (volts) 1 V [facility] Thresh RA Capture Duration (ms) 0.5 ms [facility] Thresh RA Sensing Amplitude (mvolts) 0.5 mV [facility] Thresh RV Capture Amplitude (volts) 1.25 V [facility] Thresh RV Capture Duration (ms) 0.5 ms [facility] Thresh RV Sensing Amplitude (mvolts) 12 mV [facility] favian Tracking Rate (bpm) 120 {beats}/min [facility] BNPon 06-29-2022 Natriuretic peptide B (Bld) [Mass/Vol] 214.0 pg/mL Normal <=1,800.0 [facility] Comment on above: Performed By: #### C MP, BNP, CMADM ####[facility] [id number] [place] [address]Dr. Eber Kelly CARDIAC FRIEDA ADMITon 023 CK [Catalytic activity/Vol] 31 U/L Normal 26-192 [facility] Comment on above: Performed By: #### C MP, BNP, CMADM #### [facility] [address] [address] [address] Eber Kelly CK.MB [Mass/Vol] ng/mL Normal <=3.60 [facility] Comment on above: Performed By: #### C MP, BNP, CMADM #### [facility] [address] [address] [address] Eber Kelly HSTROP 5.2 pg/mL Normal 4.0-51.3 [facility] Comment on above: Result Comment: CUT- OFF POINTS HAVE BEEN ESTABLISHED BASED ON THE FOURTH UNIVERSAL DEFINITIONS OF MYOCARDIAL INFARCTION. THE UPPER REFERENCE LIMIT (URL) OF TROPONIN, DEFINED THE 99TH PERCENTILE OF cTnI DISTRIBUTION IN A REFERENCE POPULATION, HAS BEEN CONFIRMED THE DECISION THRESHOLD FOR AR DIAGNOSIS. Performed By: #### C MP, BNP, CMADM #### [facility] [address] [address] [address] Eber Kelly ADELA 44 ng/mL Normal 9-82 [facility] Comment on above: Performed By: #### C MP, BNP, CMADM #### [facility] [address] [address] [address] Eber Kelly CBC AUTO DIFFon 06-29-2022 BASO # 0.1 103/ul Normal 0.0-0.1 [facility] Comment on above: Performed By: #### C BC #### [facility] [address] [place] [address] Dr. Eber Kelly Basophils/100 WBC (Bld) 1.4 % Normal 0.2-2.0 [facility] Comment on above: Performed By: #### C BC #### [facility] [address] [place] [address] Dr. Eber Kelly EO # 0.2 103/ul Normal 0.0-0.7 [facility] Comment on above: Performed By: #### C BC #### [facility] [address] [place] [address] Dr. Eber Kelly Eosinophils/100 WBC (Bld) 2.0 % Normal 0.9-7.0 [facility] Comment on above: Performed By: #### C BC #### [facility] [address] [place] [address] Dr. Eber Kelly Erythrocyte distribution width (RBC) [Ratio] 13.3 % Normal 11.0-15.0 [facility] Comment on above: Performed By: #### C BC #### [facility] [address] [place] [address] Dr. Eber Kelly Hematocrit (Bld) [Volume fraction] 47.3 % Normal 36.0-48.0 [facility] Comment on above: Performed By: #### C BC #### [facility] [address] [place] [address] Dr. Eber Kelly Hemoglobin (Bld) [Mass/Vol] 15.8 g/dL Normal 12.0-16.0 [facility] Comment on above: Performed By: #### C BC #### [facility] [address] [place] [address] Dr. Eber Kelly IG # 0.02 10e3/ul Normal 0.00-0.03 [facility] Comment on above: Performed By: #### C BC #### [facility] [address] [place] [address] Dr. Eber Kelly IG % 0.2 % Normal 0.0-0.5 [facility] Comment on above: Performed By: #### C BC #### [facility] [address] [place] [address] Dr. Eber Kelly LYMPH # 2.4 103/ul Normal 1.2-3.8 [facility] Comment on above: Performed By: #### C BC #### [facility] [address] [place] [address] Dr. Eber Kelly Lymphocytes/100 WBC (Bld) 28.5 % Normal 20.5-60.0 [facility] Comment on above: Performed By: #### C BC #### [facility] [address] [place] [address] Dr. Eber Kelly MANUAL DIFF REQ NO Normal [facility] Comment on above: Performed By: #### C BC #### [facility] [address] [place] [address] Dr. Eber Kelly MCH (RBC) [Entitic mass] 29.2 pg Normal 26.7-34.0 [facility] Comment on above: Performed By: #### C BC #### [facility] [address] [place] [address] Dr. Eber Klely MCHC (RBC) [Mass/Vol] 33.4 g/dL Normal 29.9-35.2 [facility] Comment on above: Performed By: #### C BC #### [facility] [address] [place] [address] Dr. Eber Kelly MCV (RBC) [Entitic vol] 87.4 fL Normal 81.0-99.0 [facility] Comment on above: Performed By: #### C BC #### [facility] [address] [place] [address] Dr. Eber Kelly MONO # 0.7 103/ul Normal 0.3-0.8 [facility] Comment on above: Performed By: #### C BC #### [facility] [address] [place] [address] Dr. Eber Kelly Monocytes/100 WBC (Bld) 7.9 % Normal 1.7-12.0 [facility] Comment on above: Performed By: #### C BC #### [facility] [address] [place] [address] Dr. Eber Kelly NEUT # 5.0 103/ul Normal 1.4-6.5 [facility] Comment on above: Performed By: #### C BC #### [facility] [address] [place] [address] Dr. Eber Kelly Neutrophils/100 WBC (Bld) 60.0 % Normal 43.0-75.0 [facility] Comment on above: Performed By: #### C BC #### [facility] [address] [place] [address] Dr. Eber Kelly Platelet mean volume (Bld) [Entitic vol] 11.0 fL Normal 9.5-13.5 [facility] Comment on above: Performed By: #### C BC #### [facility] [address] [place] [address] Dr. Eber Kelly PLT 310 103/ul Normal 150-450 [facility] Comment on above: Performed By: #### C BC #### [facility] [address] [place] [address] Dr. Eber Kelly RBC 5.41 106/ul Critically high 4.20-5.40 [facility] Comment on above: Performed By: #### C BC #### [facility] [address] [place] [address] Dr. Eber Kelly WBC 8.3 103/ul Normal 4.0-11.0 [facility] Comment on above: Performed By: #### C BC #### [facility] [address] [place] [address] HEAD WO CONon 06-29-2022 CT HEAD WO CON EXAMINATION: CT HEAD WO CON HISTORY: BENIGN PAROXYSMAL VERTIGO, UNSPECIFIED EAR COMPARISON: None available at time of dictation. TECHNIQUE: CT imaging of the head was performed without IV contrast. Dose reduction techniques were achieved by using automated exposure control and/or adjustment of mA and/or kV according to patient size and/or use of iterative reconstruction technique. FINDINGS: No acute hemorrhage or extra-axial fluid collection. No mass effect or midline shift. Mild parenchymal volume loss with commensurate enlargement of the sulci, cisterns and ventricles. Scattered patchy areas of subcortical and periventricular white matter hypodensity consistent with sequela of chronic microvascular ischemic changes. Kelley-white matter differentiation is otherwise maintained. Partial opacification of air cells right. Opacification right frontal sinus. Remainder of the paranasal sinuses are clear. Mastoid air cells are clear. Peripheral vascular calcifications. Orbits are unremarkable. Osseous structures are unremarkable. IMPRESSION: No acute intracranial findings. Mild parenchymal volume loss and sequela of chronic microvascular angiopathy. Ethmoidal and frontal sinus disease. Electronically authenticated by: JOEY MARLEY Date: 2022-06-29 10:09 Normal [facility] CTA NECK WO W CONon 06-29-19 23 CTA NECK WO W CON EXAMINATION: CTA HEA D WO W CON, CTA NECK WO W CON HISTORY: BENIGN PAROXYSMAL VERTIGO, UNSPECIFIED EAR dizziness, left neck pain for one year. Symptoms worsening when moving neck. COMPARISON: Head CT 06/29/2022 TECHNIQUE: CT angiogram images through the head and neck with intravenous contrast with coronal and sagittal maximum intensity projection images. MIP (maximum intensity projection) images were performed. Dose reduction techniques were achieved by using automated exposure control and/or adjustment of mA and/or kV according to patient size and/or use of iterative reconstruction technique. FINDINGS: CTA NECK: No flow-limiting stenosis at the origins of the great vessels. No stenosis of the carotid arteries by NASCET criteria. Dominant left vertebral artery without stenosis. CTA HEAD: Flow in all major intracranial arteries without large vessel occlusion. No appreciable intracranial aneurysms or vascular malformations. No airspace consolidation in the lung apices. Scattered mild paranasal sinus mucosal thickening. Straightening of the cervical spine. No subluxation. Disc osteophyte complex resulting in right foraminal stenosis at C5-C6. IMPRESSION: 1. No flow-limiting stenosis in the major intracranial arteries. 2. No stenosis of the carotid arteries by NASCET criteria. No flow-limiting stenosis in the vertebral arteries. Distention Electronically authenticated by: ADIN KILLIAN Date: 2022-06-29 11:06 Normal [facility] ER URINE PROFILEon 3 Bilirubin Ql (U) Negative Normal NEGATIVE [facility] Comment on above: Performed By: #### E RUR #### [facility] [address] [place] [address] Dr. Eber Kelly Clarity (U) CLEAR Normal CLEAR [facility] Comment on above: Performed By: #### E RUR #### [facility] [address] [place] [address] Dr. Eber Kelly Color (U) LT. YELLOW Normal YELLOW [facility] Comment on above: Performed By: #### E RUR #### [facility] [address] [place] [address] Dr. Eber HILL A micrscopic examination will be performed if indicated. Normal [facility] Comment on above: Performed By: #### E RUR #### [facility] [address] [place] [address] Dr. Eber Kelly Glucose Ql (U) Negative Normal NEGATIVE [facility] Comment on above: Performed By: #### E RUR #### [facility] [address] [place] [address] Dr. Eber Kelly Hemoglobin Ql (U) Negative Normal NEGATIVE [facility] Comment on above: Performed By: #### E RUR #### [facility] [address] [place] [address] Dr. Eber Kelly Ketones Ql (U) Negative Normal NEGATIVE [facility] Comment on above: Performed By: #### E RUR #### [facility] [address] [place] [address] Dr. Eber Kelly LEUKOCYTES Negative Normal NEGATIVE [facility] Comment on above: Performed By: #### E RUR #### [facility] [address] [place] [address] Dr. Eber Kelly Nitrite Ql (U) Negative Normal NEGATIVE [facility] Comment on above: Performed By: #### E RUR #### [facility] [address] [place] [address] Dr. Eber Kelly pH (U) 6.0 [pH] Normal 5-9 [facility] Comment on above: Performed By: #### E RUR #### [facility] [address] [address] [address] Eber Kelly SPEC GRAVITY <=1.005 Abnormal 1.005-<=1.025 [facility] Comment on above: Performed By: #### E RUR #### [facility] [address] [address] [address] Eber Kelly UA PROTEIN Negative Normal NEGATIVE/ TRACE [facility] Comment on above: Performed By: #### E RUR #### [facility] [address] [address] [address] Eber Kelly UR MICRO IND NOT INDICATED Normal [facility] Comment on above: Performed By: #### E RUR #### [facility] [address] [place] [address] Dr. Eber Kelly Urobilinogen Qn (U) 0.2 {Nerissa'U}/dL Normal 0.2 - 1. 0 [facility] Comment on above: Performed By: #### E RUR #### [facility] [address] [place] [address] Dr. Eber Kelly POINT OF CARE GLUCOSEon 06-12 Glucose [Mass/Vol] 156 mg/dL Critically high 74-106 [facility] Comment on above: Performed By: #### P OCGLUC ####[facility] [id number] [address]Dr. Eber Kelly PROF 14(COMP METB)on 023 Albumin [Mass/Vol] 3.9 g/dL Normal 3.4-5.0 [facility] Comment on above: Performed By: #### C MP, BNP, CMADM #### [facility] [address] [address] [address] Eber Kelly Albumin/Globulin [Mass ratio] 1.0 {ratio} Normal [facility] Comment on above: Performed By: #### C MP, BNP, CMADM #### [facility] [address] [address] [address] Eber Kelly ALP [Catalytic activity/Vol] 79 U/L Normal 46-116 [facility] Comment on above: Performed By: #### C MP, BNP, CMADM #### [facility] [address] [address] [address] Eber Kelly ALT [Catalytic activity/Vol] 15 U/L Normal 14-59 [facility] Comment on above: Performed By: #### C MP, BNP, CMADM #### [facility] [address] [address] [address] Eber Kelly Anion gap [Moles/Vol] 13.3 mmol/L Normal [facility] Comment on above: Performed By: #### C MP, BNP, CMADM #### [facility] [address] [address] [address] Eber Kelly AST [Catalytic activity/Vol] 13 U/L Critically low 15-37 [facility] Comment on above: Performed By: #### C MP, BNP, CMADM #### [facility] [address] [address] [address] Eber Kelly Bilirubin [Mass/Vol] 0.6 mg/dL Normal 0.2-1.0 [facility] Comment on above: Performed By: #### C MP, BNP, CMADM #### [facility] [address] [address] [address] Eber Kelly Calcium [Mass/Vol] 9.4 mg/dL Normal 8.5-10.1 [facility] Comment on above: Performed By: #### C MP, BNP, CMADM #### [facility] [address] [address] [address] Eber Kelly Chloride [Moles/Vol] 104 mmol/L Normal 98-107 [facility] Comment on above: Performed By: #### C MP, BNP, CMADM #### [facility] [address] [address] [address] Eber Kelly CO2 [Moles/Vol] 26.9 mmol/L Normal 21.0-32.0 [facility] Comment on above: Performed By: #### C MP, BNP, CMADM #### [facility] [address] [address] [address] Eber Kelly Creatinine [Mass/Vol] 0.94 mg/dL Normal 0.55-1.02 [facility] Comment on above: Performed By: #### C MP, BNP, CMADM #### [facility] [address] [place] [address] Dr. Eber Kelly EGFR-AF BURUNDIAN >60 Normal >=60 [facility] Comment on above: Performed By: #### C MP, BNP, CMADM #### [facility] [address] [place] [address] Dr. Eber Kelly EGFR-NON AF BURUNDIAN 57 mL/min/1.73m2 Critically low >=60 [facility] Comment on above: Performed By: #### C MP, BNP, CMADM #### [facility] [address] [place] [address] Dr. Eber Kelly Globulin (S) [Mass/Vol] 4.0 g/dL Normal [facility] Comment on above: Performed By: #### C MP, BNP, CMADM #### [facility] [address] [place] [address] Dr. Eber Kelly Glucose [Mass/Vol] 159 mg/dL Critically high 74-106 [facility] Comment on above: Performed By: #### C MP, BNP, CMADM #### [facility] [address] [place] [address] Dr. Eber Kelly Potassium [Moles/Vol] 4.2 mmol/L Normal 3.5-5.1 [facility] Comment on above: Performed By: #### C MP, BNP, CMADM #### [facility] [address] [place] [address] Dr. Eber Kelly Protein [Mass/Vol] 7.9 g/dL Normal 6.4-8.2 [facility] Comment on above: Performed By: #### C MP, BNP, CMADM #### [facility] [address] [place] [address] Dr. Eber Kelly Sodium [Moles/Vol] 140 mmol/L Normal 136-145 [facility] Comment on above: Performed By: #### C MP, BNP, CMADM #### [facility] [address] [address] [address] Eber Kelly Urea nitrogen [Mass/Vol] 14.0 mg/dL Normal 7.0-18.0 [facility] Comment on above: Performed By: #### C MP, BNP, CMADM #### [facility] [address] [address] [address] Eber Kelly Urea nitrogen/Creatinine [Mass ratio] 14.9 mg/mg Normal [facility] Comment on above: Performed By: #### C MP, BNP, CMADM #### [facility] [address] [address] [address] Eber Kelly PROTIMEon 06-29-2022 INR Coag (PPP) [Relative time] 1.05 {INR} Normal [facility] Comment on above: Performed By: #### P TT, PT ####[facility] [id number] [address]DrYasmin Kelly INR GUIDELINES SEE BELOW Normal [facility] Comment on above: Result Comment: JULIOCESAR RED INR: 2.0 - 3.0 CONDITIONS NOT LISTED BELOW 2.5 - 3.5 FOR PROSTHETIC HEART VALVE REPLACEMENT 2.5 - 3.5 RECURRENT THROMBOSIS Performed By: #### P TT, PT ####[facility] [id number] [address]Dr. Eber Kelly PT Coag (PPP) [Time] 11.1 s Normal 9.0-11.6 [facility] Comment on above: Performed By: #### P TT, PT ####[facility] [id number] [address]Dr. Eber Kelly PTTon 06-29-2022 aPTT Coag (Bld) [Time] 31.8 s Normal 22.3-36.2 [facility] Comment on above: Performed By: #### P TT, PT ####[facility] [id number] [place], [place] [address]Dr. Eber Kelly XR CHEST 1 Von 06-29-2022 XR CHEST 1 V EXAM: XR CHEST 1 V INDICATION: COUGH. COMPARISON: Chest radiograph 06/15/2015. TECHNIQUE: Single frontal view of the chest FINDINGS: Left-sided dual-lead pacemaker in stable position. Normal cardiac mediastinal contours. Clear lungs. No pleural effusion or pneumothorax. No acute osseous abnormality. IMPRESSION: No acute cardiopulmonary process. Electronically authenticated by: ANDREW MONTALVO Date: 2022-06-29 10:06 Normal [facility] CNOVon 05-01-2022 CNOV Office Visit (CAEPAV ) TAVIARUFINO ([id number]) 1940 F Date Time Provider Department 05/01/22 4:20 PM TAMRA GREWAL CAEPAV During your visit today, we recorded the following information about you: Temperature Pulse Respiration Blood pressure 97.8 degrees 85/minute 18/minute 147/68 Weight Height 112.5 kg 1.727 m Referring Provider: TAMRA GREWAL [[id number]] Allergies As of Date: 05/01/2022 Noted Allergy Reaction MOXIFLOXACIN 12/21/2003 5 - Intolerance Comments: thought I was having a heart attack w/ Avelox PERCOCET (OXYCODONE-ACETAMINOP HEN)12/02/2006 5 - Intolerance Comments: Drops BP CAPSAICIN 02/09/2015 9 - Itching PRAVACHOL (PRAVASTATIN SODIUM) 06/15/2009 5 - Intolerance Comments: Muscle cramps CEPHALEXIN 07/22/2016 9 - Itching CLAVULANIC ACID 07/22/2016 9 - Itching FLAGYL (METRONIDAZOLE) 07/22/2016 9 - Itching hot peppers [Other] 12/19/2006 9 - Itching LEVOFLOXACIN 07/22/2016 9 - Itching SULFA (SULFONAMIDE ANTIBIOTICS) 12/21/2003 8 - GI Upset Date Reviewed: 05/01/2022 Reviewed by: Tea Wilkerson Ma - Fully Assessed Reason for Visit: Follow Up [171] Cmt: 1 Year Follow Up/Device Check Primary Visit Diagnosis:Pacemaker [Z95.0] Prescriptions as of 05/01/2022 - propranolol (INDERAL) 10 mg tablet Take 1 tablet by mouth four times daily. - Acetaminophen-Caffein e (TENSION HEADACHE PAIN RELIEVER) 500-65 mg tab Take 2 tablets by mouth twice daily. 2 tablets in am, 1 tablet after lunch - Vitamin E, dl, acetate, (VITAMIN E) 400 unit capsule Take 400 Units by mouth as needed. - vit B complx-folic ac-C-biotin 1 mg-100 mg- 300 mcg tab Take by mouth. - Cinnamon Bark 500 mg cap Take 2 capsules by mouth once daily. - loratadine-pseudoephe drine ER (CLARITIN-D 24) 10-240 mg Tb24 Take 1 tablet by mouth once daily. - busPIRone (BUSPAR) 15 mg tablet Take 1 tablet by mouth twice daily. - Cholecalciferol, Vitamin D3, 10,000 unit cap Take by mouth once daily. - pantoprazole DR (PROTONIX) 40 mg tablet Take 40 mg by mouth once daily. - levothyroxine (SYNTHROID) 100 mcg tablet Take 1 tablet by mouth daily before breakfast. - VITAMIN B COMPLEX (B COMPLEX-100 ORAL) Take 1 capsule by mouth once daily. 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] 02/26/2015 Bradycardia [R00.1] 02/26/2015 Pulmonary embolus (HCC) [I26.99] 03/02/2015 Dysthymia [F34.1] 07/22/2016 Carpal tunnel syndrome of right wrist [G56.01] 05/30/2020 Encounter Status:Closed by TAMRA GREWAL on 05/01/[address] [facility] No Panel Informationon 05-01 BLANK _ [facility] ic Implant Date 02/27/2015 [facility] inic Model 2088TC Tendril STS [facility] PACEMAKER CLINIC CHECKon AMS Fallback Rate (bpm) 70 {beats}/min [facility] AV Delay Adaptive Paced Minimum (ms) 150 ms [facility] Adaptive Rate Maximum (bpm) 120 {beats}/min [facility] Delay Adaptive Rate Minimum (bpm) 90 {beats}/min [facility] favian AV Delay Adaptive Sensed Minimum (ms) 130 ms [facility] in AV Delay Adaptive Status Medium [facility] AV Delay Paced (ms) 100 ms [facility] AV Delay Sensed (ms) 100 ms [facility] Battery Voltage (volts) 2.93 V [facility] Dirk RA Pacing Amplitude (volts) 2 V [facility] Dirk RA Pacing Polarity BI [facility] Dirk RA Pacing Pulse Width (ms) 0.5 ms [facility] Dikr RA Sensing Blanking Period (ms) 150 ms [facility] Dirk RA Sensing Polarity BI [facility] Dirk RA Sensing Refractory Period (ms) 190 ms [facility] Dirk RV Pacing Amplitude (volts) 1.25 V [facility] Dirk RV Pacing Polarity BI [facility] Dirk RV Pacing Pulse Width (ms) 0.5 ms [facility] Dirk RV Sensing Amplitude (mvolts) 2 mV [facility] favian Dirk RV Sensing Blanking Period (ms) 44 ms [facility] Dirk RV Sensing Polarity BI [facility] Dirk RV Sensing Refractory Period (ms) 250 ms [facility] Hysteresis Rate (bpm) Off [facility] Lead1 Mfg STJ [facility] ic Lead2 Mfg STJ [facility] ic Location RA [facility] Location RV [facility] ic Lower Rate (bpm) 60 {beats}/min [facility] Max Sensor Rate (bmp) 120 {beats}/min [facility] Model 2240 Assurity [facility] linic Pacemaker Dependent? YES [facility] Pacing Mode DDD [facility]-Device Mfg STJ [facility] linic PM-Percent Pacing (A) 3.9 % [facility] PM-Percent Pacing (V) 99.98 % [facility] PM-PMT Intervention Atrial Pace [facility] PM-PVC Intervention Off [facility] PM-Rate Modulation Acceleration Reaction Fast [facility] PM-Rate Modulation Deceleration Medium [facility] PM-Rate Modulation Brule Auto (+2) [facility] PM-Rate Modulation Threshold Auto (+0.0) [facility] Rhythm Sinus rhythm with complete heart block [facility] Serial Number [id number] [facility] linic Serial Number [id number] [facility] linic Serial Number [id number] [facility] lin Thresh RA Capture Amplitude (volts) 1 V [facility] ic Thresh RA Capture Duration (ms) 0.5 ms [facility] Thresh RA Sensing Amplitude (mvolts) 1.4 mV [facility] favian Thresh RV Capture Amplitude (volts) 1 V [facility] ic Thresh RV Capture Duration (ms) 0.5 ms [facility] Thresh RV Sensing Amplitude (mvolts) 12 mV [facility] favian Tracking Rate (bpm) 120 {beats}/min [facility] No Panel Informationon 04-01 BLANK _ [facility] ic Implant Date 02/27/2015 [facility] inic Model 2088TC Tendril STS [facility] PACEMAKER REMOTE CHECKon AV Delay Adaptive Paced Minimum (ms) 150 ms [facility] favian AV Delay Adaptive Sensed Minimum (ms) 130 ms [facility] in AV Delay Paced (ms) 100 ms [facility] AV Delay Sensed (ms) 100 ms [facility] Battery Voltage (volts) 2.93 V [facility] Dirk RA Pacing Amplitude (volts) 2 V [facility] Dirk RA Pacing Polarity BI [facility] Dirk RA Pacing Pulse Width (ms) 0.5 ms [facility] Dirk RA Sensing Amplitude (mvolts) 0.4 mV [facility] favian Dirk RA Sensing Polarity BI [facility] Dirk RV Pacing Amplitude (volts) 1.125 [facility] ic Dirk RV Pacing Polarity BI [facility] Dirk RV Pacing Pulse Width (ms) 0.5 ms [facility] Dirk RV Sensing Amplitude (mvolts) 2 mV [facility] favian Dirk RV Sensing Polarity BI [facility] Lead1 Mfg STJ [facility] ic Lead2 Mfg STJ [facility] ic Location RA [facility] Location RV [facility] Lower Rate (bpm) 60 {beats}/min [facility] Max Sensor Rate (bmp) 120 {beats}/min [facility] Model 2240 [employer] [facility] linic Pacing Mode DDD [facility] favian PM-Device Mfg STJ [facility] linic PM-Percent Pacing (A) 4.2 % [facility] PM-Percent Pacing (V) 99 % [facility] RA Bipolar Impedance ohms 450 ohm [facility] RV Bipolar Impedance ohms 850 ohm [facility] Serial Number [id number] [facility] linic Serial Number [id number] [facility] linic Serial Number [id number] [facility] linic Thresh RA Capture Amplitude (volts) 1 V [facility] ic Thresh RA Capture Duration (ms) 0.5 ms [facility] Thresh RA Sensing Amplitude (mvolts) 0.5 mV [facility] favian Thresh RV Capture Amplitude (volts) 0.875 V [facility] ic Thresh RV Capture Duration (ms) 0.5 ms [facility] Thresh RV Sensing Amplitude (mvolts) 12 mV [facility] favian Tracking Rate (bpm) 120 {beats}/min [facility] MICROALBUMIN URINEon 022 Albumin, Urine 35.2 ug/mL Normal Not Estab. [facility] Comment on above: Performed By: #### M ALBLC #### [facility] [address] [address] [address] Eber Kelly CBC AUTO DIFFon 01-07-2022 BASO # 0.1 103/ul Normal 0.0-0.1 [facility] Comment on above: Performed By: #### C BC ####[facility] [id number] [address]Dr. Eber Kelly Basophils/100 WBC (Bld) 1.1 % Normal 0.2-2.0 [facility] Comment on above: Performed By: #### C BC ####[facility] [address] [address]DrYasmin Kelly EO # 0.2 103/ul Normal 0.0-0.7 [facility] Comment on above: Performed By: #### C BC ####[facility] [address] [address]DrYasmin Kelly Eosinophils/100 WBC (Bld) 1.7 % Normal 0.9-7.0 [facility] Comment on above: Performed By: #### C BC ####[facility] [address] [address]Dr. Eber Kelly Erythrocyte distribution width (RBC) [Ratio] 13.4 % Normal 11.0-15.0 [facility] Comment on above: Performed By: #### C BC ####[facility] [address] [address]Dr. Eber Kelly Hematocrit (Bld) [Volume fraction] 47.0 % Normal 36.0-48.0 [facility] Comment on above: Performed By: #### C BC ####[facility] Mg[address]ziv[address]te[address] [place], [place] [address]Dr. Eber Kelly Hemoglobin (Bld) [Mass/Vol] 15.5 g/dL Normal 12.0-16.0 [facility] Comment on above: Performed By: #### C BC ####[facility] Z[address]ix[address]ou[address] [place], [place] [address]Dr. Eber Kelly IG # 0.03 10e3/ul Normal 0.00-0.03 [facility] Comment on above: Performed By: #### C BC ####[facility] [address] [place], [place] [address]Dr. Eber Kelly IG % 0.3 % Normal 0.0-0.5 [facility] Comment on above: Performed By: #### C BC ####[facility] Qxsh[address]fewt[address] [place], [place] [address]Dr. Eber Kelly LYMPH # 3.2 103/ul Normal 1.2-3.8 [facility] Comment on above: Performed By: #### C BC ####[facility] Bxwdrmselv[address] [place], [place] [address]Dr. Eber Kelly Lymphocytes/100 WBC (Bld) 34.4 % Normal 20.5-60.0 [facility] Comment on above: Performed By: #### C BC ####[facility] R[address]fmzp[address] [place], [place] [address]Dr. Eber Kelly MANUAL DIFF REQ NO Normal [facility] Comment on above: Performed By: #### C BC ####[facility] [address] [place] [id number]. Eber Robin MCH (RBC) [Entitic mass] 29.1 pg Normal 26.7-34.0 [facility] Comment on above: Performed By: #### C BC ####[facility] [address] [place] [id number]. Eber Kelly MCHC (RBC) [Mass/Vol] 33.0 g/dL Normal 29.9-35.2 [facility] Comment on above: Performed By: #### C BC ####[facility] [address] [place] [id number]. Eber Robin MCV (RBC) [Entitic vol] 88.3 fL Normal 81.0-99.0 [facility] Comment on above: Performed By: #### C BC ####[facility] T[address]ux[address] [place], [place] [address]Dr. Eber Kelly MONO # 0.9 103/ul Critically high 0.3-0.8 [facility] Comment on above: Performed By: #### C BC ####[facility] Youzhs[address] [place], [place] [address]Dr. Eber Kelly Monocytes/100 WBC (Bld) 9.5 % Normal 1.7-12.0 [facility] Comment on above: Performed By: #### C BC ####[facility] Ns[address] [place], [place] [address]Dr. Eber Kelly NEUT # 4.9 103/ul Normal 1.4-6.5 [facility] Comment on above: Performed By: #### C BC ####[facility] [address] [place], [place] [address]Dr. Eber Kelly Neutrophils/100 WBC (Bld) 53.0 % Normal 43.0-75.0 [facility] Comment on above: Performed By: #### C BC ####[facility] Mkwjxuxgxa[address] [place], [place] [address]Dr. Eber Kelly Platelet mean volume (Bld) [Entitic vol] 10.8 fL Normal 9.5-13.5 [facility] Comment on above: Performed By: #### C BC ####[facility] [address] [place] [id number]. Eber Kelly PLT 305 103/ul Normal 150-450 [facility] Comment on above: Performed By: #### C BC ####[facility] [address] [place] [id number]. Eber Kelly RBC 5.32 106/ul Normal 4.20-5.40 [facility] Comment on above: Performed By: #### C BC ####[facility] [address] [place] [id number]. Eber Kelly WBC 9.3 103/ul Normal 4.0-11.0 [facility] Comment on above: Performed By: #### C BC ####[facility] [address] [place] [address]Dr. Eber Kelly GLYCOHEMOGLOBIN A1Con 2021 ADA RECOMMENDATION SEE BELOW Normal [facility] Comment on above: Result Comment: ADA RECOMMENDED LIMIT 4.0 - 6.0 ADA THERAPEUTIC TARGET < 7.0 ACTION SUGGESTED > 7.0 Performed By: #### A 1C ####[facility] [address] [place] [address]Dr. Eber Kelly Glucose [Mass/Vol] 154 mg/dL Normal [facility] Comment on above: Performed By: #### A 1C ####[facility] [address] [place] [id number]. Eber Kelly HbA1c (Bld) [Mass fraction] 7.0 % Critically high 4.5-6.2 [facility] Comment on above: Performed By: #### A 1C ####[facility] [address] [place] [id number]. Eber Kelly PROF CHEM 8 (BAS METB)on Anion gap [Moles/Vol] 12.9 mmol/L Normal [facility] Comment on above: Performed By: #### B MP, TSH #### [facility] [address] [address] [address] Eber Kelly Calcium [Mass/Vol] 9.4 mg/dL Normal 8.5-10.1 [facility] Comment on above: Performed By: #### B SAVI, TSH #### [facility] [address] [place] [address] Dr. Eber Kelly Chloride [Moles/Vol] 100 mmol/L Normal 98-107 [facility] Comment on above: Performed By: #### B SAVI, TSH #### [facility] [address] [place] [address] Dr. Eber Kelly CO2 [Moles/Vol] 30.0 mmol/L Normal 21.0-32.0 [facility] Comment on above: Performed By: #### B SAVI, TSH #### [facility] [address] [place] [address] Dr. Eber Kelly Creatinine [Mass/Vol] 1.04 mg/dL Critically high 0.55-1.02 [facility] Comment on above: Performed By: #### B SAVI, TSH #### [facility] [address] [place] [address] Dr. Eber Kelly EGFR-AF BURUNDIAN >60 Normal >=60 [facility] Comment on above: Performed By: #### B SAVI, TSH #### [facility] [address] [place] [address] Dr. Eber Kelly EGFR-NON AF BURUNDIAN 51 mL/min/1.73m2 Critically low >=60 [facility] Comment on above: Performed By: #### B SAVI, TSH #### [facility] [address] [place] [address] Dr. Eber Kelly Glucose [Mass/Vol] 160 mg/dL Critically high 74-106 [facility] Comment on above: Performed By: #### B SAVI, TSH #### [facility] [address] [place] [address] Dr. Eber Kelly Potassium [Moles/Vol] 3.9 mmol/L Normal 3.5-5.1 [facility] Comment on above: Performed By: #### B SAVI, TSH #### [facility] [address] [place] [address] Dr. Eber Kelly Sodium [Moles/Vol] 139 mmol/L Normal 136-145 [facility] Comment on above: Performed By: #### B SAVI, TSH #### [facility] [address] [place] [address] Dr. Eber Kelly Urea nitrogen [Mass/Vol] 21.0 mg/dL Critically high 7.0-18.0 [facility] Comment on above: Performed By: #### B SAVI, TSH #### [facility] [address] [address] [address] Eber Kelly Urea nitrogen/Creatinine [Mass ratio] 20.2 mg/mg Normal [facility] Comment on above: Performed By: #### B SAVI, TSH #### [facility] [address] [place] [address] Dr. Eber Kelly TSHon 01-07-2022 TSH 4.497 uIU/mL Critically high 0.358-3.740 [facility] Comment on above: Performed By: #### B SAVI, TSH #### [facility] [address] [place] [address] Dr. Eber Kelly No Panel Informationon 12-31 BLANK _ [facility] ic Implant Date 02/27/2015 [facility] in Model 2088TC Tendril STS [facility] PACEMAKER REMOTE CHECKon AV Delay Adaptive Paced Minimum (ms) 150 ms [facility] Delay Adaptive Sensed Minimum (ms) 130 ms [facility] in AV Delay Paced (ms) 100 ms [facility] AV Delay Sensed (ms) 100 ms [facility] Battery Voltage (volts) 2.95 V [facility] Dirk RA Pacing Amplitude (volts) 2 V [facility] RA Pacing Polarity BI [facility] Dirk RA Pacing Pulse Width (ms) 0.5 ms [facility] Dirk RA Sensing Amplitude (mvolts) 0.4 mV [facility] favian Dirk RA Sensing Polarity BI [facility] Dirk RV Pacing Amplitude (volts) 1.25 V [facility] Dirk RV Pacing Polarity BI [facility] Dirk RV Pacing Pulse Width (ms) 0.5 ms [facility] Sensing Amplitude (mvolts) 2 mV [facility] favian Dirk RV Sensing Polarity BI [facility] Lead1 Mfg STJ [facility] ic Lead2 Mfg STJ [facility] ic Location RA [facility] ic Location RV [facility] ic Lower Rate (bpm) 60 {beats}/min [facility] Max Sensor Rate (bmp) 120 {beats}/min [facility] Model 2240 Assurity [facility] linic Pacing Mode DDD [facility] favian PM-Device Mfg STJ [facility] linic PM-Percent Pacing (A) 4.8 % [facility] PM-Percent Pacing (V) 99 % [facility] RA Bipolar Impedance ohms 460 ohm [facility] RV Bipolar Impedance ohms 860 ohm [facility] Serial Number [id number] [facility] linic Serial Number [id number] [facility] linic Serial Number [id number] [facility] linic Thresh RA Capture Amplitude (volts) 1 V [facility] ic Thresh RA Capture Duration (ms) 0.5 ms [facility] Thresh RA Sensing Amplitude (mvolts) 1 mV [facility] favian Thresh RV Capture Amplitude (volts) 1 V [facility] ic Thresh RV Capture Duration (ms) 0.5 ms [facility] Thresh RV Sensing Amplitude (mvolts) 12 mV [facility] Tracking Rate (bpm) 120 {beats}/min [facility] XR KUB 1 VIEWon 11-20-2021 XR KUB 1 VIEW EXAMINATION: XR KUB 1 VIEW HISTORY: Kidney stone COMPARISON: 09/13/2020 FINDINGS: KIDNEY/URETER - RIGHT: No visible renal or ureteral calcifications. KIDNEY/URETER - LEFT: No visible renal or ureteral calcifications. PELVIS: No visible ureteral calcifications. Any visible calcifications favor phleboliths. BOWEL: No abnormal dilation or deviation. Moderate amount of stool throughout the colon BONES: Mild to moderate left hip osteoarthropathy. Moderate degenerative changes of the spine OTHER: Negative. No abnormal gaseous collections. IMPRESSION: No definite urinary tract calculi Electronically authenticated by: MOOK NEFF Date: 2021-11-20 19:[address] [facility] [address] CHEST WO IVCONon 07-15-[address] CHEST WO IVCON * * *Final Report* * *DATE OF EXAM: Jul 14 2017 5:00PM [facility] 0541 - CT CHEST WO IVCON / REASON: Solitary pulmonary nodule * * * * Physician Interpretation * * * * EXAMINATION: CHEST CT WITHOUT CONTRASTIndication: Solitary pulmonary noduleTechnique: Spiral CT acquisition of the chest from the thoracic inlet to the upper abdomen without contrast.MQ: [id number] Dose-Length Product: 548 mGy*cmCT Dose Reduction Employed: Automated exposure control (AEC)Comparison: 03/29/2016 and 03/29/2017.RESULT:Lorenzo itations: None.Lines, tubes, and devices: Left-sided pacemaker.Lung parenchyma and pleura: Lung nodules:-Right lower lobe 1 cm image 3:99 (9 mm image 3:85 of the study of 2016.-Right lung nodules images 22, 29, 30, 46, 72, 90 (no change previous images 12, 19, 20, 35, 69, and 87).-Left lung nodules: Images 37, 27, 58, 94, 101 and 147 (no change previous images 26, 16, 42, 76,87 and 129). The previously identified nodule on image 43 is not clearly identified on the current examination. There is a left lower lobe nodule measuring approximately 4 mm image 3:103 (3 mm previous image 3: 84 by my measurement). This is not significantly changed compared to image 4:42 of the study of 2017. No pleural effusion. Central airways are patent.Thoracic inlet, heart, and mediastinum: No mediastinal or hilar lymphadenopathy by size criteria.. The thoracic aorta and main pulmonary artery are normal in caliber. The cardiac chambers are normal in size. No coronary artery atherosclerotic calcifications are noted, although the study is not optimized for coronary assessment. There is a trace amount of pericardial thickening inferiorly.Bones and soft tissues: No aggressive osseous lesions. Chest wall is unremarkable.Upper abdomen: There is a hypodensity in the right lobe of the liver near the dome not significantly changed.IMPRESSION: Multiple bilateral lung nodules identified. The majority of the nodules are similar in appearance. One of the nodules in the left lower lobe is minimally more prominent compared to the study of 2016. Consider a follow-up examination in 6-[address]: ANNABELLA Transcribe Date/Time: Jul 15 2017 12:47PDictated by : TANMAY MONROY MDThis examination was interpreted and the report reviewed and electronically signed by: TANMAY MONROY MD on Jul 15 2017 1:08PM [id number] IACN [facility] PROGRESSon 07-14-2017 PROGRESS HNO ID: [id number]: Melissa Pham CTS (Ct)ervice: RadiologyAuthohumera Type: TechnicianType: Progress NotesFiled: 07/14/2017 4:57 PMNote Text: Radiology Service Progress NotePATIENT NAME: Rufino CollinsMRN: [id number] OF SERVICE: July 14, 2017TIME: 4:57 PMPATIENT IDENTITY VERIFICATION COMPLETED USING TWO (2) METHODS: Patientconfirmed name verbally and ID band matches..PATIENT GENDER DATA: Female. status: : NoBreastfeeding status: NO.PATIENT RELEVANT IMPLANT DATA REVIEWED: YesRADIOLOGY DEPARTMENT: CT; Exam(s) Completed: ChestPERIPHERAL IV DATA: Not applicableSIGNED BY: [facility] 2017 4:57 PM [facility] Vital Signs Date Time Vital Sign Value Performing Clinician Facility 05-03-2023 11:25-0500 Body height 171.45 cm Nina Wallace Other [facility] Other 05-03-2023 11:25-0500 Body mass index (BMI) [Ratio] 36.88 kg/m2 Nina Wallace Other [facility] Other 05-03-2023 11:25-0500 Body temperature 98 [degF] Nina Wallace Other [facility] Other 05-03-2023 11:25-0500 Body weight 108.41 kg Nina Wallace Other [facility] Other 05-03-2023 11:25-0500 Diastolic blood pressure 82 mm[Hg] Nina Wallace Other [facility] Other 05-03-2023 11:25-0500 Respiratory rate 18 /min Nina Wallace Other [facility] Other 05-03-2023 11:25-0500 SaO2% (BldA) [Mass fraction] 95 % Nina Wallace Other [facility] Other 05-03-2023 11:25-0500 Systolic blood pressure 118 mm[Hg] Nina Wallace Other [facility] Other 04-17-2023 09:21-0500 Blood Pressure Location Roseann Orzech [facility] 04-17-2023 09:21-0500 Body temperature 97.34 [degF] Roseann Orzech [facility] 04-17-2023 09:21-0500 Diastolic blood pressure 86 mm[Hg] Roseann Orzech [facility] 04-17-2023 09:21-0500 Heart rate 83 /min Roseann Orzech [facility] 04-17-2023 09:21-0500 Systolic blood pressure 134 mm[Hg] Roseann Orzech [facility] 04-16-2023 14:52-0500 Body height 172.7 cm Tamra Grewal MD Work Phone: [facility] 04-16-2023 14:52-0500 Body weight 108.41 kg Tamra Grewal MD Work Phone: [facility] 04-16-2023 14:52-0500 Diastolic blood pressure 84 mm[Hg] Tamra Grewal MD Work Phone: [facility] 04-16-2023 14:52-0500 Heart rate 80 /min Tamra Grewal MD Work Phone: [facility] 04-16-2023 14:52-0500 Systolic blood pressure 142 mm[Hg] Tamra Grewal MD Work Phone: [facility] 01-06-2023 13:30-0400 Body height 171.45 cm Manav Ball Other [facility] Other 01-06-2023 13:30-0400 Body mass index (BMI) [Ratio] 36.88 kg/m2 Manav Ball Other [facility] Other 01-06-2023 13:30-0400 Body weight 108.41 kg Manav Ball Other [facility] Other 01-06-2023 13:30-0400 Diastolic blood pressure 77 mm[Hg] Manav Ball Other [facility] Other 01-06-2023 13:30-0400 Respiratory rate 12 /min Manav Ball Other [facility] Other 01-06-2023 13:30-0400 Systolic blood pressure 136 mm[Hg] Manav Ball Other [facility] Other 08-21-2022 16:15-0400 Body height 171.45 cm Manav Ball Other [facility] Other 08-21-2022 16:15-0400 Body mass index (BMI) [Ratio] 37.83 kg/m2 Manav Ball Other [facility] Other 08-21-2022 16:15-0400 Body weight 111.22 kg Manav Ball Other [facility] Other 08-21-2022 16:15-0400 Diastolic blood pressure 89 mm[Hg] Manav Ball Other [facility] Other 08-21-2022 16:15-0400 Respiratory rate 16 /min Manav Ball Other [facility] Other 08-21-2022 16:15-0400 Systolic blood pressure 170 mm[Hg] Manav Ball Other [facility] Other 08-20-2022 13:26-0400 Diastolic blood pressure 79 mm[Hg] Rachid Odell MD Work Phone: [facility] 08-20-2022 13:26-0400 Heart rate 82 /min Rachid Odell MD Work Phone: [facility] 08-20-2022 13:26-0400 Systolic blood pressure 155 mm[Hg] Rachid Odell MD Work Phone: [facility] 07-17-2022 15:45-0500 Body height 171.45 cm Manav Ball Other [facility] Other 07-17-2022 15:45-0500 Diastolic blood pressure 84 mm[Hg] Manav Ball Other [facility] Other 07-17-2022 15:45-0500 Respiratory rate 16 /min Manav Ball Other [facility] Other 07-17-2022 15:45-0500 Systolic blood pressure 122 mm[Hg] Manav Ball Other [facility] Other 07-12-2022 18:00-0500 Heart rate 69 /min Km Romito DO Work Phone: [facility] 07-12-2022 18:00-0500 Respiratory rate 25 /min Km Romito DO Work Phone: [employer] 07-12-2022 18:00-0500 SaO2% (BldA) [Mass fraction] 97 % Km Romito DO Work Phone: [facility] 07-12-2022 16:00-0500 Diastolic blood pressure 74 mm[Hg] Km Kirby DO Work Phone: [facility] 07-12-2022 16:00-0500 Systolic blood pressure 160 mm[Hg] Km Kirby DO Work Phone: [facility] 07-12-2022 15:45-0500 Body height 172.7 cm Km Kirby DO Work Phone: [facility] 07-12-2022 15:45-0500 Body mass index (BMI) [Ratio] 37.25 kg/m2 Km Kirby DO Work Phone: [facility] 07-12-2022 15:45-0500 Body temperature 97.7 [degF] Km Kirby DO Work Phone: [facility] 07-12-2022 15:45-0500 Body weight 111.13 kg Km Kirby DO Work Phone: [facility] 05-01-2022 15:58-0500 Body height 172.7 cm Tamra Grewal MD Work Phone: [facility] 05-01-2022 15:58-0500 Body temperature 97.81 [degF] Tamra Grewal MD Work Phone: [facility] 05-01-2022 15:58-0500 Body weight 112.49 kg Tamra Grewal MD Work Phone: [facility] 05-01-2022 15:58-0500 Diastolic blood pressure 68 mm[Hg] Tamra Grewal MD Work Phone: [facility] 05-01-2022 15:58-0500 Heart rate 85 /min Tamra Grewal MD Work Phone: [facility] 05-01-2022 15:58-0500 Respiratory rate 18 /min Tamra Grewal MD Work Phone: [facility] 05-01-2022 15:58-0500 SaO2% (BldA) [Mass fraction] 97 % Tamra Grewal MD Work Phone: [facility] 05-01-2022 15:58-0500 Systolic blood pressure 147 mm[Hg] Tamra Grewal MD Work Phone: [facility] 01-24-2022 14:00-0400 Diastolic blood pressure 88 mm[Hg] Rachid Odell MD Work Phone: [facility] 01-24-2022 14:00-0400 Heart rate 80 /min Rachid Odell MD Work Phone: [facility] 01-24-2022 14:00-0400 Systolic blood pressure 134 mm[Hg] Rachid Odell MD Work Phone: [facility] 11-23-2021 11:27-0400 Blood Pressure Location Natalie CARLTON [facility] 11-23-2021 11:27-0400 Diastolic blood pressure 91 mm[Hg] Natalie CARLTON [facility] 11-23-2021 11:27-0400 Heart rate 71 /min Natalie CARLTON [facility] 11-23-2021 11:27-0400 Respiratory rate 16 /min Natalie CARLTON [facility] 11-23-2021 11:27-0400 Systolic blood pressure 152 mm[Hg] Natalie CARLTON [facility] 10-09-2021 15:00-0400 Body height 171.45 cm Mook Santiago Other [facility] Other 10-09-2021 15:00-0400 Body mass index (BMI) [Ratio] 36.26 kg/m2 Mook Santiago Other [facility] Other 10-09-2021 15:00-0400 Body weight 106.6 kg Mook Santiago Other [facility] Other 10-09-2021 15:00-0400 Diastolic blood pressure 85 mm[Hg] Mook Santiago Other [facility] Other 10-09-2021 15:00-0400 Systolic blood pressure 154 mm[Hg] Mook Santiago Other [facility] Other Encounters Encounter Date Encounter Type Care Provider Facility Start: 05-14-2023 End: 05-14-2023 ambulatory Manav Fernandez Other [facility] Other Start: 05-14-2023 Telephone encounter Manav Fernandez MAIDA G [facility] Start: 05-10-2023 End: 05-10-2023 ambulatory Manav Fernandez Other [facility] Other Start: 05-10-2023 Telephone encounter Manav Fernandez MAIDA G [facility] Start: 05-03-2023 Office outpatient vi sit 15 minutes Nina Wallace [facility] Start: 05-03-2023 End: 05-03-2023 ambulatory Nina Wallace [facility] Other Start: 05-03-2023 End: 05-03-2023 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 Nina Wallace Work Phone: [facility] [place] Work Phone: Start: 04-30-2023 End: 05-01-2023 ambulatory PA-Yolis THOMAS Facility:[facility] Start: 04-30-2023 End: 04-30-2023 Patient encounter procedure DAVID THOMAS [facility] Start: 04-17-2023 End: 04-18-2023 ambulatory Roseann X Orzech Facility:[facility] Start: 04-17-2023 End: 04-18-2023 ambulatory Roseann X Orzech Facility:[facility] Start: 04-17-2023 End: 04-17-2023 Lab Drop off Roseann X Orzech [facility] Start: 04-17-2023 End: 04-17-2023 Patient encounter procedure Roseann X Orzech [facility] Mark Start: 04-16-2023 End: 04-16-2023 ambulatory TAMRA GREWAL Facility:[facility] Start: 04-16-2023 Follow-up encounter Tamra Grewal MD Work Phone: [facility] Start: 04-16-2023 End: 04-16-2023 Patient encounter procedure Tamra Grewal MD Work Phone: [facility] Department Comment on above: Pacemaker (Primary D x) Start: 04-11-2023 End: 04-11-2023 ambulatory Manav Fernandez Other [facility] Other Start: 04-11-2023 Telephone encounter Manav BEY G [facility] Start: 04-10-2023 End: 04-10-2023 ambulatory Manav Fernandez Other [facility] Other Start: 04-10-2023 Telephone encounter Manav BEY G [facility] Start: 04-02-2023 Follow-up encounter Tamra Grewal MD Work Phone: [facility] Start: 04-02-2023 Pacemaker Remote F/U Tamra Grewal MD Work Phone: [facility] Start: 03-04-2023 Refill Rachid Odell MD Work Phone: Neurology Comment on above: Refill Request Start: 02-20-2023 End: 02-20-2023 ambulatory MANAV FERNANDEZ Facility:[facility] Start: 02-20-2023 End: 02-20-2023 ambulatory Rachid Odell MD Work Phone: Neurology Comment on above: Essential tremor (Pr imary Dx) Start: 02-20-2023 End: 02-20-2023 Telemedicine consultation with patient Rachid Odell MD Work Phone: Y[facility]NY GRE[facility] Start: 02-19-2023 End: 02-19-2023 ambulatory Manav Fernandez Other [facility] Other Start: 02-19-2023 Nursing evaluation o f patient and report Manav Fernandez [facility] Start: 01-22-2023 Follow-up encounter Tamra Grewal MD Work Phone: [facility] Start: 01-22-2023 Pacemaker Remote F/U Tamra Grewal MD Work Phone: [facility] Start: 01-07-2023 End: 01-07-2023 ambulatory Manav Fernandez Other [facility] Other Start: 01-07-2023 Telephone encounter Manav Fernandez FP G [facility] Start: 01-06-2023 End: 01-06-2023 ambulatory Manav Fernandez Other [employer] Other Start: 01-06-2023 Patient encounter procedure Manav Fernandez [facility] Start: 01-03-2023 End: 01-03-2023 ambulatory Manav Fernandez Other [employer] Other Start: 01-03-2023 Office outpatient vi sit 15 minutes Manav Fernandez [facility] Start: 01-02-2023 End: 01-02-2023 ambulatory Manav Fernandez Other [employer] Other Start: 01-02-2023 Telephone encounter Manav BEY [facility] Start: 01-01-2023 Follow-up encounter Tamra Grewal MD Work Phone: [facility] Start: 01-01-2023 Pacemaker Remote F/U Tamra Grewal MD Work Phone: [facility] Department Start: 11-25-2022 End: 11-26-2022 ambulatory Natalie CARLTON Facility:[facility] Start: 09-30-2022 Follow-up encounter Tamra Grewal MD Work Phone: [facility] Start: 09-30-2022 Pacemaker Remote F/U Tamra Grewal MD Work Phone: [facility] Department Start: 09-04-2022 End: 09-04-2022 ambulatory Manav Fernandez Other [employer] Other Start: 09-04-2022 Telephone encounter Manav Mohini MAIDA [facility] Start: 08-21-2022 End: 08-21-2022 ambulatory Manav Fernandez Other [employer] Other Start: 08-21-2022 Office outpatient vi sit 25 minutes Manav Mohini [facility] Start: 08-20-2022 End: 08-20-2022 ambulatory MANAV Klein MOHINI Facility:[facility] Start: 08-20-2022 End: 08-20-2022 Patient encounter procedure Rachid Odell MD Work Phone: Neurology Comment on above: Tremor (Primary Dx); Vertigo Start: 08-15-2022 End: 08-15-2022 ambulatory Manav Mohini Other [employer] Other Start: 08-15-2022 Telephone encounter Manav Fernandez MAIDA [facility] Comment on above: Appointment Start: 08-14-2022 End: 08-14-2022 ambulatory Manav Mohini Other [employer] Other Start: 08-14-2022 Nursing evaluation o f patient and report Manav Fernandez [facility] Start: 07-29-2022 End: 07-29-2022 ambulatory Manav Fernandez Other [employer] Other Start: 07-29-2022 Telephone encounter Manav BEY [facility] Start: 07-17-2022 End: 07-17-2022 ambulatory Manav Fernandez Other [employer] Other Start: 07-17-2022 Office outpatient vi sit 15 minutes Manav Fernandez [facility] Start: 07-17-2022 Telephone encounter Manav Fernandez FP [facility] Start: 07-12-2022 End: 07-12-2022 Emergency department patient visit MANAV FERNANDEZ [facility] Start: 07-12-2022 End: 07-12-2022 Emergency department patient visit Km Kirby DO Work Phone: [facility] ED Comment on above: Dizziness (Primary D x) Start: 07-11-2022 End: 07-12-[address] MANAV FERNANDEZ Facility:[facility] Start: 07-02-2022 End: 07-02-2022 ambulatory Manav Mohini Other [employer] Other Start: 07-02-2022 Telephone encounter Manav Fernandez MAIDA [facility] Start: 07-01-2022 Follow-up encounter Tamra Grewal MD Work Phone: [facility] Start: 07-01-2022 Pacemaker Remote F/U Tamra Grewal MD Work Phone: [facility] Start: 06-29-2022 End: 06-29-[address] MANAV FERNANDEZ Facility:[facility] Start: 06-28-2022 End: 06-28-2022 ambulatory Manav Mohini Other [employer] Other Start: 06-28-2022 Telephone encounter Manav Fernandez MAIDA [facility] Start: 06-25-2022 End: 06-25-2022 ambulatory Manav Mohini Other [employer] Other Start: 06-25-2022 Telephone encounter Manav Fernandez [facility] Start: 05-01-2022 End: 05-01-2022 ambulatory MANAV FERNANDEZ Facility:[facility] Start: 05-01-2022 Follow-up encounter Tamra Grewal MD Work Phone: [facility] Start: 05-01-2022 End: 05-01-2022 Patient encounter procedure Tamra Grewal MD Work Phone: [facility] Department Comment on above: Pacemaker (Primary D x) Start: 04-01-2022 Follow-up encounter Tamra Grewal MD Work Phone: [facility] Start: 04-01-2022 Pacemaker Remote F/U Tamra Grewal MD Work Phone: [facility] Start: 01-24-2022 End: 01-24-2022 Patient encounter procedure Rachid Odell MD Work Phone: Neurology Comment on above: Essential tremor (Pr imary Dx) Start: 01-07-2022 End: 01-08-[address] MANAV FERNANDEZ Facility:[facility] Start: 12-31-2021 Follow-up encounter Tamra Grewal MD Work Phone: [facility] Start: 12-31-2021 Pacemaker Remote F/U Tamra Grewal MD Work Phone: [facility] Start: 11-23-2021 End: 11-23-2021 Patient encounter procedure Natalie CARLTON [facility] Start: 11-20-2021 End: 11-21-[address] MANAV FERNANDEZ Facility:[facility] Start: 10-09-2021 End: 10-09-2021 ambulatory Mook Santiago Other [employer] Other Start: 10-09-2021 Office outpatient ne w 45 minutes Mook Santiago [facility] Start: 08-21-[address] MANAV Mortenseni ty:[facility] Start: 07-14-2017 Ambulatory [facility] Procedures Date Procedure Procedure Detail Performing Clinician Start: 04-16-2023 PACEMAKER CLINIC CHECK Tamra Grewal MD Work Phone: Start: 04-02-2023 PACEMAKER REMOTE CHECK Tamra Grewal MD Work Phone: Start: 01-22-2023 PACEMAKER REMOTE CHECK Tamra Grewal MD Work Phone: Start: 01-01-2023 PACEMAKER REMOTE CHECK Tamra Grewal MD Work Phone: Start: 09-30-2022 PACEMAKER REMOTE CHECK Tamra Grewal MD Work Phone: Start: 07-12-2022 Radiologic exam ches t 2 views Km Wisemanito DO Work Phone: Start: 07-12-2022 C-reactive protein h igh sensitivity Km Wisemanito DO Work Phone: Start: 07-12-2022 Comprehensive metabo lic panel Km Kirby DO Work Phone: Start: 07-12-2022 Urinalysis microscopic only Km Kirby DO Work Phone: Start: 07-12-2022 Urnls dip stick/tabl et rgnt auto w/o microscopy Km Kirby DO Work Phone: Start: 07-01-2022 PACEMAKER REMOTE CHECK Tamra Grewal MD Work Phone: Start: 05-01-2022 PACEMAKER CLINIC CHECK Tamra Grewal MD Work Phone: Start: 04-01-2022 PACEMAKER REMOTE CHECK Tamra Grewal MD Work Phone: Start: 12-31-2021 PACEMAKER REMOTE CHECK Tamra Grewal MD Work Phone: Start: 10-24-2016 Cystoscopic removal of ureteric stent Natalie CARLTON Start: 10-17-2016 Cystoscopic laser lithotripsy of ureteric calculus Natalie CARLTON Start: 02-09-2015 Implantation of card iac pacemaker Natalie CARLTON Start: 08-01-2014 Cystoscopic removal of ureteric stent Natalie CARLTON Start: 08-18-2011 Cystoscopic removal of ureteric stent Natalie CARLTON Start: 08-02-2011 Extracorporeal shock wave lithotripsy of calculus of kidney Natalie CARLTON Start: 06-28-2011 Cystoscopic laser lithotripsy of ureteric calculus Natalie CARLTON Arthroplasty of knee Natalie CARLTON Decompression of med bere nerve Natalie CARLTON Operative procedure on hand Natalie CARLTON Plan of Treatment Date Care Activity Detail Author Start: 11-25-2026 Urine microalbumin profile DTaP,Tdap,Td Vaccine (2 - Tdap) [facility] Start: 05-03-2023 Bacteria identified in Urine by Culture [facility] Start: 01-10-2023 Covid-19 Vaccine ( season) Covid-19 Vaccine ( season) [facility] Start: 01-10-2023 Influenza vaccination C [facility] Start: 05-12-2022 ADVANCE DIRECTIVE DISCUSSION ADVANCE DIRECTIVE DISCUSSION [facility] Start: 01-10-2022 Influenza vaccination INFLUENZA (#1) [facility] Start: 12-10-2021 Influenza vaccination Flu vaccine (# 1) [facility] Start: 05-12-2021 ADVANCE DIRECTIVE DISCUSSION ADVANCE DIRECTIVE DISCUSSION [facility] Start: 01-15-2021 COVID-19 VACCINE (3 - Booster for Pfizer series) COVID-19 VACCINE (3 - Booster for Pfizer series) [facility] Start: 10-10-2020 COVID-19 VACCINE (3 - Booster for Pfizer series) COVID-19 VACCINE (3 - Booster for Pfizer series) [facility] Start: 10-10-2020 Covid-19 Vaccine (3 - Pfizer series) Covid-19 Vaccine (3 - Pfizer series) [facility] Start: 09-04-2019 DIABETES SCREEN DIABETES SCREEN [facility] Start: 09-04-2019 Diabetes Screening Diabetes Screenin g [facility] Start: 02-25-2014 Pneumococcal Vaccine : 65+ (2 - PCV) Pneumococcal Vaccine: 65+ (2 - PCV) [facility] Start: 02-25-2014 PNEUMOCOCCAL: 65+ (2 - PCV) PNEUMOCOCCAL: 65+ (2 - PCV) [facility] Start: 2007 BONE DENSITY BONE DENSITY [facility] Start: 2007 Bone Density Screening Bone Density Screening [facility] Start: 2002 RSV Vaccine (1 - 1-d ose 60+ series) RSV Vaccine (1 - 1-dose 60+ series) [facility] Start: 1997 Screening for osteoporosis DEXA (modify frequency per FRAX score) [facility] Start: 1992 Shingles vaccine (1 of 2) Shingles vaccine (1 of 2) [facility] Start: 1992 SHINGRIX VACCINE (1 of 2) SHINGRIX VACCINE (1 of 2) [facility] Start: 1961 DTaP/Tdap/Td vaccine (1 - Tdap) DTaP/Tdap/Td vaccine (1 - Tdap) [facility] Start: 1961 Urine microalbumin profile [facility] Start: 1960 ANNUAL PCP TEAM 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 Work Phone: Comment on above: One Time for 1 Occur rences starting 07/12/2022 until 07/12/2022 End: 07-12-2022 Culture, Blood 2 [employer] Work Phone: Comment on above: One Time for 1 Occur rences starting 07/12/2022 until 07/12/2022 ECG COMPLETE ECG COMPLETE ECG Routine Pacemaker Ordered: 04/16/2023 [facility] Work Phone: Comment on above: Ordered: 04/16/2023 [facility] Immunizations Immunization Date Immunization Notes Care Provider Fa jaida 11-25-2016 diphtheria, tetanus toxoids and acellular pertussis vaccine, unspecified formulation Manav Mohini Other [employer] Other 02-25-2013 pneumococcal polysaccharide vaccine, 23 valent Tamra Grewal MD Work Phone: [facility] Payers Date Payer Category Payer Self-pay 2016 Private Health Insurance [facility] AARP SUPPLEMENT [id number] 2016-Present [phone] [address] [place] [address] Indemnity [id number] 2012 Medicare [id number] 2007 Medicare MEDICARE MEDICAR E A AND B [id number] 2007-Present [phone] [address] [address] [place] [address] Medicare [id number] 1959 Medicare [id number] 1959 Self-pay [id number] 1959 Unknown [id number] 1942 Unknown [id number] .593 1942 Unknown [id number] .593 1942 Unknown [id number] [id number] .593 1942 Unknown [id number] .593 1942 Unknown [id number] [id number] .593 1942 Unknown [id number] [id number] .182 1942 Unknown [id number] [id number] .727 1942 Unknown [id number] [id number] .727 1942 Unknown [id number] [id number] .727 1942 Unknown [id number] [id number] .727 Medicare [id number] Private Health Insurance [facility] [id number] Unknown [facility] Health Claims [id number] Social History Date Type Detail Facility Unknown if ever smoked [employer] Other Start: 08-20-2022 End: 02-20-2023 Sex Assigned At [employer] Other Start: 11-23-2021 End: 04-17-2023 Tobacco smoking status Never smoked tobacco (finding) [facility] [employer] Start: 04-22-2017 End: 01-24-2022 Tobacco use and exposure Smokeless tobacco non-user [facility] Start: 07-24-2021 End: 08-20-2022 Alcohol intake Current non-drinker of alcohol (finding) [facility] Start: 1940 Sex Assigned At Not on file C [facility] Start: 07-02-2022 End: 07-12-2022 Exposure to SARS-CoV-2 (event) Not sure [facility] Start: 08-20-2022 End: 02-20-2023 History of Social function [facility] National Score (1-100), lower number is lower risk 62 [facility] Start: 1940 Sex Assigned At Female F [facility] Medical Equipment Procedure Code Equipment Code Equipment Origin al Text Equipment Identifier Dates Cochlear Drill Countersink 4mm - [id number] Start: 06-26-2009 Cochlear Flange Fix Str 4mm - [id number] Start: 06-26-2009 Kjp-Ja-R-Kind Implant - [id number] Start: 01-07-2011 Comment on above: Description: Surgica l simplex P Radiopaque bone cement Comp Fem 5 Rt Kn Cr Jim Trthln - [id number] Start: 01-07-2011 Ins Tib 4 11mm K n X3 Cr Trthln - [id number] Start: 01-07-2011 Comp Pat 10mm 35 mm Asym Trthln - [id number] Start: 01-07-2011 Baseplt Tib Trth ln 4 Prim - [id number] Start: 01-07-2011 Functional Status Date Assessment Result Facility 04-17-2023 Functional Status N/A [facility] 11-23-2021 Functional Status N/A [facility] [employer] Clinical Notes 10-09-2021 to 05-10-2023 Note Date & Type Note Facility 05-10-2023 Evaluation note Encounter Date Diagnosis Assessment Notes Apr, Acute cystitis without hematuria (ICD-10 - N30.00) [employer] Other 12-23-2023 Evaluation note* Encounter Date Diagnosis Assessment Notes Treatment Notes Treatment Clinical Notes Apr, Dysuria (ICD-10 - R30.0) Apr, Acute cystitis without hematuria (ICD-10 - N30.00) Drink plenty fluids, get plenty of rest. Take the Macrobid and Pyridium as prescribed until gone. Stop the Azo. Take Tylenol or Motrin as needed for aches pains or fevers. Continue home medications as prescribed. Follow-up with your family physician if no improvement by Friday. Go to the ER for worsening symptoms or concerns [employer] Other 12-07-2023 Hospital Discharge instructions Patient Education 04/17/2023 10:02:42 Dietary Guidelines to Help Prevent Kidney Stones Dietary Guidelines to Help Prevent Kidney Stones Kidney stones are deposits of minerals and salts that form inside your kidneys. Your risk of developing kidney stones may be greater depending on your diet, your lifestyle, the medicines you take, and whether you have certain medical conditions. Most people can lower their risks of developing kidney stones by following these dietary guidelines. Your dietitian may give you more specific instructions depending on your overall health and the type of kidney stones you tend to develop. What are tips for following this plan? Reading food labels Choose foods with no salt added or low-salt labels. Limit your salt (sodium) intake to less than 1,500 mg a day. Choose foods with calcium for each meal and snack. Try to eat about 300 mg of calcium at each meal.Foods that contain 200 500 mg of calcium a serving include: ?8 oz (237 mL) of milk, mwowdej-kwfzcudtunsw-zjost milk, and calcium- fortifiedfruit juice. Calcium-fortified means that calcium has been added to these drinks. ?8 oz (237 mL) of kefir, yogurt, and soy yogurt. ?4 oz (114 g) of tofu. ?1 oz (28 g) of cheese. ?1 cup (150 g) of dried figs. ?1 cup (91 g) of cooked broccoli. ?One 3 oz (85 g) can of sardines or mackerel. Most people need 1,000 1,500 mg of calcium a day. Talk to your dietitian about how much calcium is recommended for you. Shopping Buy plenty of fresh fruits and vegetables. Most people do not need to avoid fruits and vegetables, even if these foods contain nutrients that may contribute to kidney stones. When shopping for convenience foods, choose: ?Whole pieces of fruit. ?Pre-made salads with dressing on the side. ?Low-fat fruit and yogurt smoothies. Avoid buying frozen meals or prepared deli foods. These can be high in sodium. Look for foods with live cultures, such as yogurt and kefir. Choose high-fiber grains, such as whole-wheat breads, oat bran, and wheat cereals. Cooking Do not add salt to food when cooking. Place a salt shaker on the table and allow each person to addtheir own salt to taste. Use vegetable protein, such as beans, textured vegetable protein (TVP), or tofu, instead of meat inpasta, casseroles, and soups. Meal planning Eat less salt, if told by your dietitian. To do this: ?Avoid eating processed or pre-made food. ?Avoid eating fast food. Eat less animal protein, including cheese, meat, poultry, or fish, if told by your dietitian. To dothis: ?Limit the number of times you have meat, poultry, fish, or cheese each week. Eat a diet free of meat at least 2 days a week. ?Eat only one serving each day of meat, poultry, fish, or seafood. ?When you prepare animal proteins, cut pieces into small portion sizes. For most meat and fish, oneserving is about the size of the palm of your hand. Eat at least five servings of fresh fruits and vegetables each day. To do this: ?Keep fruits and vegetables on hand for snacks. ?Eat one piece of fruit or a handful of berries with breakfast. ?Have a salad and fruit at lunch. ?Have two kinds of vegetables at dinner. You may be told to limit foods that are high in a substance called oxalate. These include: ?Spinach (cooked), rhubarb, beets, sweet potatoes, and Panamanian chard. ?Peanuts. ?Potato chips, bruneian fries, and baked potatoes with skin on. ?Nuts and nut products. ?Chocolate. If you regularly take a diuretic medicine, make sure to eat at least 1 or 2 servings of fruits or vegetables that are high in potassium each day. These include: ?Avocado. ?Banana. ?[place], prune, carrot, or tomato juice. ?Baked potato. ?Cabbage. ?Beans and split peas. Lifestyle Drink enough fluid to keep your urine pale yellow. This is the most important thing you can do. Spread your fluid intake throughout the day. If you drink alcohol: ?Limit how much you have to: ?0 1 drink a day for women who are not . ?0 2 drinks a day for men. ?Know how much alcohol is in your drink. In the [place] one drink equals one 12 oz bottle of beer (355 mL), one 5 oz glass of wine (148 mL), or one 1 oz glass of hard liquor (44 mL). Lose weight if told by your health care provider. Work with your dietitian to find an eating plan and weight loss strategies that work best for you. General information Talk to your health care provider and dietitian about taking daily supplements. Depending on your health and the cause of your kidney stones, you may be told: ?Do not take high-dose supplements of vitamin C (1,000 mg a day or more). ?To take a calcium supplement. ?To take a daily probiotic supplement. ?To take other supplements such as magnesium, fish oil, or vitamin B6. Take hejq-rxt-tpktzuo and prescription medicines only as told by your health care provider. These include supplements. What foods should I limit? Limit your intake of the following foods, or eat them as told by your dietitian. Vegetables Spinach. Rhubarb. Beets. Canned vegetables. Pickles. Olives. Baked potatoes with skin. Grains Wheat bran. Baked goods. Salted crackers. Cereals high in sugar. Meats and other proteins Nuts. Nut butters. Large portions of meat, poultry, or fish. Salted, precooked, or cured meats, such as sausages, meat loaves, and hot dogs. Dairy Cheeses. Beverages Regular soft drinks. Regular vegetable juice. Seasonings and condiments Seasoning blends with salt. Salad dressings. Soy sauce. Ketchup. Barbecue sauce. Other foods Canned soups. Canned pasta sauce. Casseroles. Pizza. Lasagna. Frozen meals. Potato chips. Thai fries. The items listed above may not be a complete list of foods and beverages you should limit. Contact a dietitian for more information. What foods should I avoid? Talk to your dietitian about specific foods you should avoid based on the type of kidney stones youhave and your overall health. Fruits Grapefruit. The item listed above may not be a complete list of foods and beverages you should avoid. Contact adietitian for more information. Summary Kidney stones are deposits of minerals and salts that form inside your kidneys. You can lower your risk of kidney stones by making changes to your diet. The most important thing you can do is drink enough fluid. Drink enough fluid to keep your urine pale yellow. Talk to your dietitian about how much calcium you should have each day, and eat less salt and animal protein as told by your dietitian. This information is not intended to replace advice given to you by your health care provider. Make sure you discuss any questions you have with your health care provider. Document Revised: 08/08/2022 Document Reviewed: 08/08/2022 [employer] Patient Education 2022 [employer]. Follow Up Care 04/15/2023 08:26:17 With:PEEWEE Luna APRN, RUDY Metz, URL Address: When: Unknown Comments:Pending sxs after abx course. [facility] 12-06-2023 NoteHNO ID: [id number] Author: Tamra Grewal MD Service: Electrophysiology Author Type: Physician Type: Progress Notes Filed: 04/17/2023 10:03 PM Note Text: [facility] NOTE DEPARTMENT OF CARDIOLOGY BECKY NAME: PRUDENCE COLLINS NO.: [id number] DATE OF SERVICE: 04/16/2023 PCP: Manav Fernandez M.D. Ms. Collins is an 82-year-old woman with a dual chamber pacemaker. Her is with her today. 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 She feels well without dizziness, tachypalpitations or dyspnea ( unless I walk too fast ). She has no history of organic heart disease. MEDICATIONS: Reviewed in Epic. PHYSICAL EXAMINATION: She is alert and in no distress. Blood pressure 142/84, pulse rate 80 and regular. The pacemaker pulse generator is in the left prepectoral region. It is slightly askew, but this does not bother the patient. 1st and 2nd heart sounds normal. Grade 1 to 2/6 short systolic ejection murmur at the pulmonic area. Interrogation of her [employer] model #2240 Assurity dual chamber pacemaker reveals a projected longevity of 1.8 years. No atrial or ventricular arrhythmias. Lead functions normal. Underlying rhythm is sinus rhythm with complete heart block. RV pacing as expected greater than 95% of the time. IMPRESSION AND PLAN: Normally functioning pacemaker. She will continue remote checks every 3 months and I will see her again in 1 year. DICTATED BY: Dai Ontiveros/Hoda JOB# [id number] Evaluation note* Encounter Date Diagnosis Assessment Notes Treatment Notes Treatment Clinical Notes Mar, Dysuria (ICD-10 - R30.0) Mar, SHELLEY (generalized anxiety disorder) (ICD-10 - F41.1) [employer] Other [id number] Miscellaneous Notes* Telephone Encounter - Casandra Lambert Ma - 03/04/2023 1:03 PM EDT Patient has been identified by name and date of : Yes Requested Prescriptions Pending Prescriptions Disp Refills propranolol (INDERAL) 10 mg tablet 360 tablet 1 Sig: Take 1 tablet by mouth four times daily. RX INSTRUCTIONS: Patient aware RX will be sent to pharmacy. No need to notify patient. Casandra Lambert Ma [facility] NoteHNO ID: [id number] Author: Rachid Odell MD Service: ? Author Type: Physician Type: Progress Notes Filed: 02/20/2023 2:23 PM Note Text: NEUROLOGY PROGRESS NOTE Rufino Collins is a 82 year old female. Who has a history of tremors comes in for Phone encounter follow up. Interval History Rufino Collins is a 82 year old female, with a history of essential tremors, peripheral neuropathy comes in today complaining of tremors. She was a patient of Dr. Gary before and this is the first time I am seeing this patient. About 2 years ago she started to have tremors she states that wakes her up in the middle of the night. Sometimes she has a hard time falling back asleep because of the tremors. She has become anxious, feels fatigued during the day she attributes because of lack of sleep the night before. She was tried on Mysoline in the past but did not work. She also was tried on atenolol to no avail. She has had peripheral neuropathy for quite some time now having numbness and tingling of the feet sometimes difficulty with balance. Patient doing very well. Patient states that she has been doing very well on nortriptyline and propranolol. She states that there is been a lot of in her close cervical and this has been affecting her. We had to do a phone encounter today because she has been having issues with resume. Nonetheless that she is currently happy with the current drug regimen that she is ACTIVE PROBLEM LIST Hearing Loss, Sensorineural, Unilateral Osteoarthrosis, Unspecified Whether Generalized Or Localized, Lower Leg S/P Tkr (Total Knee Replacement) Using Cement Hypothyroidism Hypertension Dyspnea On Exertion Mobitz Type 2 Second Degree Heart Block Bradycardia Pulmonary Embolus (Hcc) Dysthymia Carpal Tunnel Syndrome of Right Wrist PAST SURGICAL HISTORY Procedure Laterality Date ADENOIDECTOMY PRIMARY Adenoidectomy CHG HYSTERECTOMY W/ 1978 CHOLECYSTECTOMY 1972 PAST SURGICAL HISTORY OF lens of both eye replaced PAST SURGICAL HISTORY OF 2006 left knee replaced PAST SURGICAL HISTORY OF orthoscopic knee surgery twice on left knee PAST SURGICAL HISTORY OF polyp removed from left side of nose PAST SURGICAL HISTORY OF right pinky cut off and repaired PAST SURGICAL HISTORY OF 06/26/2009 BAHA implant TONSILLECTOMY PRIMARY/SECONDARY Tonsillectomy Current Outpatient Medications on File Prior to Visit Medication Sig Acetaminophen-Caffeine (TENSION HEADACHE PAIN RELIEVER) 500-65 mg tab Take 2 tablets by mouth twice daily. 2 tablets in am, 1 tablet after lunch busPIRone (BUSPAR) 15 mg tablet Take 1 tablet by mouth twice daily. Cholecalciferol, Vitamin D3, 10,000 unit cap Take by mouth once daily. Cinnamon Bark 500 mg cap Take 2 capsules by mouth once daily. levothyroxine (SYNTHROID) 100 mcg tablet Take 1 tablet by mouth daily before breakfast. (Patient taking differently: Take 112 mcg by mouth daily before breakfast.) loratadine-pseudoephedrine ER (CLARITIN-D 24) 10-240 mg Tb24 Take 1 tablet by mouth once daily. nortriptyline (PAMELOR) 10 mg capsule Take 1 capsule by mouth daily at bedtime. pantoprazole DR (PROTONIX) 40 mg tablet Take 40 mg by mouth once daily. propranolol (INDERAL) 10 mg tablet Take 1 tablet by mouth four times daily. vit B complx-folic ac-C-biotin 1 mg-100 mg- 300 mcg tab Take by mouth. VITAMIN B COMPLEX (B COMPLEX-100 ORAL) Take 1 capsule by mouth once daily. Patient denies taking this any longer Vitamin E, dl, acetate, (VITAMIN E) 400 unit capsule Take 400 Units by mouth as needed. No current facility-administered medications on file prior to visit. Social History Tobacco Use Smoking status: Never Smokeless tobacco: Never Substance Use Topics Alcohol use: No Drug use: No family history includes Cancer in her mother; Diabetes in her mother; Heart in her mother; Hypertension in her mother; Lipids in her mother. GENERAL:No weight loss, malaise or fevers., SEE HPI HEENT:Negative for frequent or significant headaches, No changes in hearing or vision, no nose bleeds or other nasal problems NECK:Negative for lumps, goiter, pain and significant neck swelling RESPIRATORY: Negative for cough, wheezing or shortness of breath. CARDIOVASCULAR: Negative for chest pain, leg swelling or palpitations. GASTROINTESTINAL: Negative for abdominal discomfort, blood in stools or black stools or change in bowel habits See HPI. All systems reviewed and are negative There were no vitals filed for this visit. IMPRESSION: 1. Essential tremor PLAN: Any problems or concerns to call me or primary care physician immediately or go straight to the emergency department Return in about 6 months (around 08/22/2023). Rachid Odell MD I spent a total of 30 minutes on the date of the service which included preparing to see the patient, completing clinical documentation, obtaining and/or reviewing separately obtain (more content not included)...[facility]10-12-2023 NoteHNO ID: [id number] Author: Rachid Odell MD Service: ? Author Type: Physician Type: Progress Notes Filed: 02/20/2023 2:23 PM Note Text: 02/19/2023 PROMIS Global Health Physical Health Summary Physical health: Good Everyday physical activity, ability: Completely Fatigue: Mild Pain level: 3 General health: Good Social activities/roles, ability: Good Physical Health T-Score 50.8 (Very Good) Physical Health Percentile 53 PROMIS Global Health Mental Health Summary Quality of life: Good Mental health (mood,thinking): Good Social satisfaction: Good Emotional problems (anxious,depressed): Sometimes Mental Health T-Score 43.5 (Good) Mental Health Percentile 26 Percentiles provide an indication of how a patient's score ranks in relation to the [place] general population. > 31st percentile is within normal limits or better *< 31st percentile is at least ? SD worse than population, which may be clinically relevant < 16th percentile is at least 1 SD worse than population and warrants attention Sleep Apnea Probability Snores loudly: Tired, fatigued or sleepy in daytime: Stops breathing or choking/gasping during sleep: High blood pressure: Sleep Apnea Probability Score: (Sleep study not recommended)[facility]10-12-2023 NoteHNO ID: [id number] Author: Rachid Odell MD Service: ? Author Type: Physician Type: Progress Notes Filed: 02/20/2023 2:23 PM Note Text: 02/19/2023 PROMIS Global Health Physical Health Summary Physical health: Good Everyday physical activity, ability: Completely Fatigue: Mild Pain level: 3 General health: Good Social activities/roles, ability: Good Physical Health T-Score 50.8 (Very Good) Physical Health Percentile 53 PROMIS Global Health Mental Health Summary Quality of life: Good Mental health (mood,thinking): Good Social satisfaction: Good Emotional problems (anxious,depressed): Sometimes Mental Health T-Score 43.5 (Good) Mental Health Percentile 26 Percentiles provide an indication of how a patient's score ranks in relation to the [place] general population. > 31st percentile is within normal limits or better *< 31st percentile is at least ? SD worse than population, which may be clinically relevant < 16th percentile is at least 1 SD worse than population and warrants attention Sleep Apnea Probability Snores loudly: Tired, fatigued or sleepy in daytime: Stops breathing or choking/gasping during sleep: High blood pressure: Sleep Apnea Probability Score: (Sleep study not recommended)[facility]10-12-2023 History of Present illness Narrative* Rachid Odell MD - 02/20/2023 2:20 PM EDT NEUROLOGY PROGRESS NOTE Rufino Collins is a 82 year old female. Who has a history of tremors comes in for Phone encounter follow up. Interval History Rufino Collins is a 82 year old female, with a history of essential tremors, peripheral neuropathy comes in today complaining of tremors. She was a patient of Dr. Gary before and this is the first time I am seeing this patient. About 2 years ago she started to have tremors she states that wakes her up in the middle of the night. Sometimes she has a hard time falling back asleep because of the tremors. She has become anxious, feels fatigued during the day she attributes because of lack of sleepthe night before. She was tried on Mysoline in the past but did not work. She also was tried on atenolol to no avail. She has had peripheral neuropathy for quite some time now having numbness and ting ling of the feet sometimes difficulty with balance. Patient doing very well. Patient states that she has been doing very well on nortriptyline and propranolol. She states that there is been a lot of in her close cervical and this has been affecting her. We had to do a phone encounter today because she has been having issues with resume. Nonetheless that she is currently happy with the current drug regimen that she is ACTIVE PROBLEM LIST Hearing Loss, Sensorineural, Unilateral Osteoarthrosis, Unspecified Whether Generalized Or Localized, Lower Leg S/P Tkr (Total Knee Replacement) Using Cement Hypothyroidism Hypertension Dyspnea On Exertion Mobitz Type 2 Second Degree Heart Block Bradycardia Pulmonary Embolus (Hcc) Dysthymia Carpal Tunnel Syndrome of Right Wrist PAST SURGICAL HISTORY Procedure Laterality Date ADENOIDECTOMY PRIMARY <AGE 14 1961 Adenoidectomy CHG HYSTERECTOMY W/ 1978 CHOLECYSTECTOMY 1972 PAST SURGICAL HISTORY OF lens of both eye replaced PAST SURGICAL HISTORY OF 2006 left knee replaced PAST SURGICAL HISTORY OF orthoscopic knee surgery twice on left knee PAST SURGICAL HISTORY OF polyp removed from left side of nose PAST SURGICAL HISTORY OF right pinky cut off and repaired PAST SURGICAL HISTORY OF 06/26/2009 BAHA implant TONSILLECTOMY PRIMARY/SECONDARY <AGE 14 1962 Tonsillectomy Current Outpatient Medications on File Prior to Visit Medication Sig Acetaminophen-Caffeine (TENSION HEADACHE PAIN RELIEVER) 500-65 mg tab Take 2 tablets by mouth twicedaily. 2 tablets in am, 1 tablet after lunch busPIRone (BUSPAR) 15 mg tablet Take 1 tablet by mouth twice daily. Cholecalciferol, Vitamin D3, 10,000 unit cap Take by mouth once daily. Cinnamon Bark 500 mg cap Take 2 capsules by mouth once daily. levothyroxine (SYNTHROID) 100 mcg tablet Take 1 tablet by mouth daily before breakfast. (Patient taking differently: Take 112 mcg by mouth daily before breakfast.) loratadine-pseudoephedrine ER (CLARITIN-D 24) 10-240 mg Tb24 Take 1 tablet by mouth once daily. nortriptyline (PAMELOR) 10 mg capsule Take 1 capsule by mouth daily at bedtime. pantoprazole DR (PROTONIX) 40 mg tablet Take 40 mg by mouth once daily. propranolol (INDERAL) 10 mg tablet Take 1 tablet by mouth four times daily. vit B complx-folic ac-C-biotin 1 mg-100 mg- 300 mcg tab Take by mouth. VITAMIN B COMPLEX (B COMPLEX-100 ORAL) Take 1 capsule by mouth once daily. Patient denies taking this any longer Vitamin E, dl, acetate, (VITAMIN E) 400 unit capsule Take 400 Units by mouth as needed. No current facility-administered medications on file prior to visit. Social History Tobacco Use Smoking status: Never Smokeless tobacco: Never Substance Use Topics Alcohol use: No Drug use: No family history includes Cancer in her mother; Diabetes in her mother; Heart in her mother; Hypertension in her mother; Lipids in her mother. GENERAL:No weight loss, malaise or fevers., SEE HPI HEENT:Negative for frequent or significant headaches, No changes in hearing or vision, no nose bleeds or other nasal problems NECK:Negative for lumps, goiter, pain and significant neck swelling RESPIRATORY: Negative for cough, wheezing or shortness of breath. CARDIOVASCULAR: Negative for chest pain, leg swelling or palpitations. GASTROINTESTINAL: Negative for abdominal discomfort, blood in stools or black stools or change in bowel habits See HPI. All systems reviewed and are negative There were no vitals filed for this visit. IMPRESSION: 1. Essential tremor PLAN: Any problems or concerns to call me or primary care physician immediately or go straight to the emergency department Return in about 6 months (around 08/22/2023). Rachid Odell MD I spent a total of 30 minutes on the date of the service which included preparing to see the patient, completing clinical documentation, obtaining and/or reviewing separately obtained history, performing a medically appropriate examination, and counseling and educating the patient/family/caregiver. SIGNATURE: Rachid Odell MD PATIENT NAME: Rufino Collins DATE: February 20, 2023 TIME: 2:20 PM 02/19/2023 PROMIS Global Health Physical Health Summary Physical health: Good Everyday physical activity, ability: Completely Fatigue: Mild Pain level: 3 General health: Good Social activities/roles, ability: Good Physical Health T-Score 50.8 (Very Good) Physical Health Percentile 53 PROMIS Global Health Mental Health Summary Quality of life: Good Mental health (mood,thinking): Good Social satisfaction: Good Emotional problems (anxious,depressed): Sometimes Mental Health T-Score 43.5 (Good) Mental Health Percentile 26 Percentiles provide an indication of how a patient's score ranks in relation to the [place] general population. > 31st percentile is within normal limits or better *< 31st percentile is at least SD worse than population, which may be clinically relevant < 16th percentile is at least 1 SD worse than population and warrants attention Sleep Apnea Probability Snores loudly: Tired, fatigued or sleepy in daytime: Stops breathing or choking/gasping during sleep: High blood pressure: Sleep Apnea Probability Score: (Sleep study not recommended) * Rachid Odell MD - 02/20/2023 2:11 PM EDT 02/19/2023 PROMIS Global Health Physical Health Summary Physical health: Good Everyday physical activity, ability: Completely Fatigue: Mild Pain level: 3 General health: Good Social activities/roles, ability: Good Physical Health T-Score 50.8 (Very Good) Physical Health Percentile 53 PROMIS Global Health Mental Health Summary Quality of life: Good Mental health (mood,thinking): Good Social satisfaction: Good Emotional problems (anxious,depressed): Sometimes Mental Health T-Score 43.5 (Good) Mental Health Percentile 26 Percentiles provide an indication of how a patient's score ranks in relation to the [place] general population. > 31st percentile is within normal limits or better *< 31st percentile is at least SD worse than population, which may be clinically relevant < 16th percentile is at least 1 SD worse than population and warrants attention Sleep Apnea Probability Snores loudly: Tired, fatigued or sleepy in daytime: Stops breathing or choking/gasping during sleep: High blood pressure: Sleep Apnea Probability Score: (Sleep study not recommended) * Rachid Odell MD - 02/20/2023 2:10 PM EDT 02/19/2023 PROMIS Global Health Physical Health Summary Physical health: Good Everyday physical activity, ability: Completely Fatigue: Mild Pain level: 3 General health: Good Social activities/roles, ability: Good Physical Health T-Score 50.8 (Very Good) Physical Health Percentile 53 PROMIS Global Health Mental Health Summary Quality of life: Good Mental health (mood,thinking): Good Social satisfaction: Good Emotional problems (anxious,depressed): Sometimes Mental Health T-Score 43.5 (Good) Mental Health Percentile 26 Percentiles provide an indication of how a patient's score ranks in relation to the [place] general population. > 31st percentile is within normal limits or better *< 31st percentile is at least SD worse than population, which may be clinically relevant < 16th percentile is at least 1 SD worse than population and warrants attention Sleep Apnea Probability Snores loudly: Tired, fatigued or sleepy in daytime: Stops breathing or choking/gasping during sleep: High blood pressure: Sleep Apnea Probability Score: (Sleep study not recommended) [facility]* Encounter Date Diagnosis Assessment Notes Treatment Notes Treatment Clinical Notes Feb, Dysuria (ICD-10 - R30.0) test ran by YVES Zhu [facility] Other 08-28-2023 Evaluation note* Encounter Date Diagnosis Assessment Notes Treatment Notes Treatment Clinical Notes Dec, Medicare annual wellness visit, subsequent (ICD-10 - Z00.00) Personalized health advice was given to the beneficiary including a written plan for screenings discussed and provided. Advanced care planning reviewed and/or information given as requested. Additional counseling was provided here today in regards to, [ ]. The above visit was performed by [ ], under direct supervision of [ ]. Document reviewed and amended by provider signed below. Dec, Type 2 diabetes mellitus with hyperglycemia, without long-term current use of insulin (ICD-10 - E11.65) This patient is following a comprehensive diabetic treatment plan. They are checking their feet daily for calluses and nonhealing ulcers. They are being seen for yearly dilated eye examinations. Goals: SBP less than 130, LDL less than 100, FBS less than 140, AC and A1C less than 7%. They are checking their BS daily, will which are reviewed at the office visit. Continue regular routine monitoring of A1C,] Microalbumin, Dilated eye exam and Foot exam Dec, SHELLEY (generalized anxiety disorder) (ICD-10 - F41.1) Increased anxiety due to husbands cognitive decline. She has long hx of anxiety/depression , instructed on healthy diet, exercise and keeping active. 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 Weight loss. Dec, Morbid (severe) obesity due to excess calories (ICD-10 - E66.01) This patient has been instructed on a low-fat, high-fiber diet. They are instructed to reduce calories, portion sizes and snacks. It is recommended that they exercise for 30 minutes, 3-5 times weekly. Dec, Body mass index [BMI ] 36.0-36.9, adult (ICD-10 - Z68.36) Dec, Screening mammograph y declined (ICD-10 - Z53.20) Instructed on SBE monthly and to contact office for any changes [facility] Other 08-25-2023 Evaluation note* Encounter Date Diagnosis Assessment Notes Treatment Notes Treatment Clinical Notes Dec, Acute non-recurrent maxillary sinusitis (ICD-10 - J01.00) Instructed to use Robitussin or Mucinex for cough, saline or Flonase NS for congestion, Tylenol for pain and fever. [employer] Other 04-12-2023 Evaluation note* Encounter Date Diagnosis Assessment Notes Treatment Notes Treatment Clinical Notes Aug, Gastroesophageal reflux disease, esophagitis presence not specified (ICD-10 - K21.9) Diet instructions: Smaller portions, avoid eating and laying flat, avoid eating or drinking prior to bedtime. Weight loss. Aug, Irritable bowel syndrome with diarrhea (ICD-10 - K58.0) Healthy diet, exercise and weight loss. Increase fiber w/ Metamucil Aug, SHELLEY (generalized anxiety disorder) (ICD-10 - F41.1) Healthy diet, exercise and keep active Aug, Type 2 diabetes mellitus with hyperglycemia, without long-term current use of insulin (ICD-10 - E11.65) FBS < 150 A1C < 7% This patient is following a comprehensive diabetic treatment plan. They are checking their feet daily for calluses and nonhealing ulcers. They are being seen for yearly dilated eye examinations. Goals: SBP less than 130, LDL less than 100, FBS less than 140, AC and A1C less than 7%. They are checking their BS daily, will which are reviewed at the office visit. 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 Author Type: Physician Type: Progress Notes Filed: 08/20/2022 2:02 PM Note Text: NEUROLOGY PROGRESS NOTE Rufino Collins is a 82 year old female. Who has a history of tremors comes in for follow up. Interval History Rufino Collins is a 82 year old female, with a history of essential tremors, peripheral neuropathy comes in today complaining of tremors. She was a patient of Dr. Gary before and this is the first time I am seeing this patient. About 2 years ago she started to have tremors she states that wakes her up in the middle of the night. Sometimes she has a hard time falling back asleep because of the tremors. She has become anxious, feels fatigued during the day she attributes because of lack of sleep the night before. She was tried on Mysoline in the past but did not work. She also was tried on atenolol to no avail. She has had peripheral neuropathy for quite some time now having numbness and tingling of the feet sometimes difficulty with balance. Patient doing very well. Patient continues to do well on propranolol and this will be refilled. Last June 2022 she was doing some work or chores the washing machine and out of the blue she started feeling vertiginous. The whole room was spinning. She had to go to the hospital was worked up CT CT angiogram were unremarkable. They put her on meclizine however she was sleepy with it so this was discontinued. She does state that the vertigo has slowly and gradually lessening however she is very anxious that it might come back. She wants to try something for her anxiety. I will put her on nortriptyline 10 mg at bedtime as this may work for her vertigo as well. Nonetheless she does have a pacemaker she will be seeing her family doctor tomorrow an alternative drug I believe would be Lexapro if her family doctor does not approve of nortriptyline. We did talk about vestibular rehab as well but she declined. ACTIVE PROBLEM LIST Hearing Loss, Sensorineural, Unilateral Osteoarthrosis, Unspecified Whether Generalized Or Localized, Lower Leg S/P Tkr (Total Knee Replacement) Using Cement Hypothyroidism Hypertension Dyspnea On Exertion Mobitz Type 2 Second Degree Heart Block Bradycardia Pulmonary Embolus (Hcc) Dysthymia Carpal Tunnel Syndrome of Right Wrist PAST SURGICAL HISTORY Procedure Laterality Date ADENOIDECTOMY PRIMARY Adenoidectomy CHG HYSTERECTOMY W/ 1978 CHOLECYSTECTOMY 1972 PAST SURGICAL HISTORY OF lens of both eye replaced PAST SURGICAL HISTORY OF 2006 left knee replaced PAST SURGICAL HISTORY OF orthoscopic knee surgery twice on left knee PAST SURGICAL HISTORY OF polyp removed from left side of nose PAST SURGICAL HISTORY OF right pinky cut off and repaired PAST SURGICAL HISTORY OF 06/26/2009 BAHA implant TONSILLECTOMY PRIMARY/SECONDARY Tonsillectomy Current Outpatient Medications on File Prior to Visit Medication Sig Acetaminophen-Caffeine (TENSION HEADACHE PAIN RELIEVER) 500-65 mg tab Take 2 tablets by mouth twice daily. 2 tablets in am, 1 tablet after lunch Vitamin E, dl, acetate, (VITAMIN E) 400 unit capsule Take 400 Units by mouth as needed. vit B complx-folic ac-C-biotin 1 mg-100 mg- 300 mcg tab Take by mouth. Cinnamon Bark 500 mg cap Take 2 capsules by mouth once daily. loratadine-pseudoephedrine ER (CLARITIN-D 24) 10-240 mg Tb24 Take 1 tablet by mouth once daily. busPIRone (BUSPAR) 15 mg tablet Take 1 tablet by mouth twice daily. Cholecalciferol, Vitamin D3, 10,000 unit cap Take by mouth once daily. pantoprazole DR (PROTONIX) 40 mg tablet Take 40 mg by mouth once daily. levothyroxine (SYNTHROID) 100 mcg tablet Take 1 tablet by mouth daily before breakfast. (Patient taking differently: Take 112 mcg by mouth daily before breakfast.) VITAMIN B COMPLEX (B COMPLEX-100 ORAL) Take 1 capsule by mouth once daily. Patient denies taking this any longer Current Facility-Administered Medications on File Prior to Visit Medication propranolol 10 mg tab(s) (INDERAL) Social History Tobacco Use Smoking status: Never Smokeless tobacco: Never Substance Use Topics Alcohol use: No Drug use: No family history includes Cancer in her mother; Diabetes in her mother; Heart in her mother; Hypertension in her mother; Lipids in her mother. GENERAL:No weight loss, malaise or fevers., SEE HPI HEENT:No changes in hearing or vision, no nose bleeds or other nasal problems NECK:Negative for lumps, goiter, pain and significant neck swelling RESPIRATORY: Negative for cough, wheezing or shortness of breath. CARDIOVASCULAR: Negative for chest pain, leg swelling or palpitations. GASTROINTESTINAL: Negative for abdominal discomfort, blood in stools or black stools or change in bowel habits See HPI. All systems reviewed and are negative 08/20/22 1326 BP: 155/79 Pulse: 82 PHYSICAL EXAMINATION: General appearance: we (more content not included)...[facility] 08-20-2022 History of Present illness Narrative* Rachid Odell MD - 08/20/2022 1:33 PM EDT NEUROLOGY PROGRESS NOTE Rufino Collins is a 82 year old female. Who has a history of tremors comes in for follow up. Interval History Rufino Collins is a 82 year old female, with a history of essential tremors, peripheral neuropathy comes in today complaining of tremors. She was a patient of Dr. Gary before and this is the first time I am seeing this patient. About 2 years ago she started to have tremors she states that wakes her up in the middle of the night. Sometimes she has a hard time falling back asleep because of the tremors. She has become anxious, feels fatigued during the day she attributes because of lack of sleepthe night before. She was tried on Mysoline in the past but did not work. She also was tried on atenolol to no avail. She has had peripheral neuropathy for quite some time now having numbness and tingling of the feet sometimes difficulty with balance. Patient doing very well. Patient continues to do well on propranolol and this will be refilled. Last June 2022 she was doing some work or chores the washing machine and out of the blue she started feeling vertiginous. The whole room was spinning. She had to go to the hospital was worked up CT CT angiogram were unremarkable. They put her on meclizine however she was sleepy with it so this was discontinued. She does state that the vertigo has slowly and gradually lessening however she is very anxious that it might come back. She wants to try something for her anxiety. I will put her on nortriptyline 10 mg at bedtime as this may work for her vertigo as well. Nonetheless she does have a pacemaker she will be seeingher family doctor tomorrow an alternative drug I believe would be Lexapro if her family doctor doesnot approve of nortriptyline. We did talk about vestibular rehab as well but she declined. ACTIVE PROBLEM LIST Hearing Loss, Sensorineural, Unilateral Osteoarthrosis, Unspecified Whether Generalized Or Localized, Lower Leg S/P Tkr (Total Knee Replacement) Using Cement Hypothyroidism Hypertension Dyspnea On Exertion Mobitz Type 2 Second Degree Heart Block Bradycardia Pulmonary Embolus (Hcc) Dysthymia Carpal Tunnel Syndrome of Right Wrist PAST SURGICAL HISTORY Procedure Laterality Date ADENOIDECTOMY PRIMARY <AGE 12 1961 Adenoidectomy CHG HYSTERECTOMY W/ 1978 CHOLECYSTECTOMY 1972 PAST SURGICAL HISTORY OF lens of both eye replaced PAST SURGICAL HISTORY OF 2006 left knee replaced PAST SURGICAL HISTORY OF orthoscopic knee surgery twice on left knee PAST SURGICAL HISTORY OF polyp removed from left side of nose PAST SURGICAL HISTORY OF right pinky cut off and repaired PAST SURGICAL HISTORY OF 06/26/2009 BAHA implant TONSILLECTOMY PRIMARY/SECONDARY <AGE 12 1961 Tonsillectomy Current Outpatient Medications on File Prior to Visit Medication Sig Acetaminophen-Caffeine (TENSION HEADACHE PAIN RELIEVER) 500-65 mg tab Take 2 tablets by mouth twicedaily. 2 tablets in am, 1 tablet after lunch Vitamin E, dl, acetate, (VITAMIN E) 400 unit capsule Take 400 Units by mouth as needed. vit B complx-folic ac-C-biotin 1 mg-100 mg- 300 mcg tab Take by mouth. Cinnamon Bark 500 mg cap Take 2 capsules by mouth once daily. loratadine-pseudoephedrine ER (CLARITIN-D 24) 10-240 mg Tb24 Take 1 tablet by mouth once daily. busPIRone (BUSPAR) 15 mg tablet Take 1 tablet by mouth twice daily. Cholecalciferol, Vitamin D3, 10,000 unit cap Take by mouth once daily. pantoprazole DR (PROTONIX) 40 mg tablet Take 40 mg by mouth once daily. levothyroxine (SYNTHROID) 100 mcg tablet Take 1 tablet by mouth daily before breakfast. (Patient taking differently: Take 112 mcg by mouth daily before breakfast.) VITAMIN B COMPLEX (B COMPLEX-100 ORAL) Take 1 capsule by mouth once daily. Patient denies taking this any longer Current Facility-Administered Medications on File Prior to Visit Medication propranolol 10 mg tab(s) (INDERAL) Social History Tobacco Use Smoking status: Never Smokeless tobacco: Never Substance Use Topics Alcohol use: No Drug use: No family history includes Cancer in her mother; Diabetes in her mother; Heart in her mother; Hypertension in her mother; Lipids in her mother. GENERAL:No weight loss, malaise or fevers., SEE HPI HEENT:No changes in hearing or vision, no nose bleeds or other nasal problems NECK:Negative for lumps, goiter, pain and significant neck swelling RESPIRATORY: Negative for cough, wheezing or shortness of breath. CARDIOVASCULAR: Negative for chest pain, leg swelling or palpitations. GASTROINTESTINAL: Negative for abdominal discomfort, blood in stools or black stools or change in bowel habits See HPI. All systems reviewed and are negative 08/20/22 1326 BP: 155/79 Pulse: 82 PHYSICAL EXAMINATION: General appearance: well appearing, alert, in no acute distress Neck: Supple Carotid Auscultation: Without bruits Lungs: Lungs clear to auscultation CVS: RRR without murmur Neurological exam: MENTAL STATUS: Alert, oriented to person, place and time and Follows commands CRANIAL NERVES: PERRLA, EOM's intact, Face symmetric, No dysarthria, and Tongue protrudes midline MOTOR: No drift MOTOR STRENGTH: Upper and lower extremity 5/5 bilaterally REFLEXES: UE and LE reflexes are equal and reactive SENSATION: Intact light touch COORDINATION: Finger-to- nose-finger intact bilaterally GAIT: Normal-based IMPRESSION: 1. Vertigo 2. Tremors PLAN: As above. Any problems or concerns to call me or primary care physician immediately or go straight to the emergency department Return in about 6 months (around 02/19/2023). ASSESSMENT/PLAN: 1. Tremor - ICD9: 781.0, ICD10: R25.1 (primary diagnosis) 2. Vertigo - ICD9: 780.4, ICD10: R42 Rachid Odell MD I spent a total of 30 minutes on the date of the service which included preparing to see the patient, [id number] patient care, completing clinical documentation, obtaining and/or reviewing separately obtained history, performing a medically appropriate examination, counseling and educating the pat ient/family/caregiver, and ordering medications, tests, or procedures. SIGNATURE: Rachid Odell MD PATIENT NAME: Rufino Collins DATE: August 20, 2022 TIME: 1:59 PM documented in this encounterPrem[facility] Miscellaneous Notes* Telephone Encounter - Cortney Padilla Pss - 08/19/2022 12:52 PM EDT Spoke with patient. She is scheduled for an in office visit with Dr. Odell 08/20. * Telephone Encounter - Karla Jackson - 08/15/2022 9:52 AM EDT Call center called today. : 1940 Allergies: Moxifloxacin, Percocet [Oxycodone-Acetaminophen], Capsaicin, Pravachol [Pravastatin Sodium], Cephalexin, Clavulanic Acid, Flagyl [Metronidazole], Hot Peppers [Other], Levofloxacin, and Sulfa (Sulfonamide Antibiotics) (home) [phone] (cell) Reason for call: The appointment center called with patient on line but lost patient when transferring. She is scheduled 08/20 but incorrectly scheduled as new instead of established patient. Patientis asking if this appointment can be changed to Virtual Visit instead of in person. She is established and does not want to wait to be seen. Please review and advise. Patient last appointment: Visit date not found The patients preferred pharmacy has been captured for this encounter? not asked Karla Jackson documented in this encounterPrem[facility]04-05-2023 Evaluation note* Encounter Date Diagnosis Assessment Notes Treatment Notes Treatment Clinical Notes Aug, Dysuria (ICD-10 - R30.0) [facility] Other 03-08-2023 Evaluation note* Encounter Date Diagnosis Assessment Notes Treatment Notes Treatment Clinical Notes Jul, Benign paroxysmal positional vertigo of right ear (ICD-10 - H81.11) Stop antivert. Vestibular exercise handout given to patient to continue at home No improvement, referral to vestibular rehab Jul, SHELLEY (generalized anxiety disorder) (ICD-10 - F41.1) Healthy diet and keep active. f/u Psych as scheduled Jul, Type 2 diabetes mellitus with hyperglycemia, without long-term current use of insulin (ICD-10 - E11.65) This patient is following a comprehensive diabetic treatment plan. They are checking their feet daily for calluses and nonhealing ulcers. They are being seen for yearly dilated eye examinations. Goals: SBP less than 130, LDL less than 100, FBS less than 140, AC and A1C less than 7%. They are checking their BS daily, will which are reviewed at the office visit. A1C: yearly [facility] Other 03-03-2023 Hospital Discharge instructions* Discharge Instructions* Km Kirby DO - 07/12/2022 6:54 PM EST X-ray shows no pneumonia. Heart markers are normal. On exam you have nystagmus when your eyes movedto the right. You can try taking half of the dose of Antivert that was prescribed to you to see if this is more tolerable and doing this up to 3 times a day. It can make you a bit lightheaded and tired. If you are having difficulty with your speech, weakness of your arms or legs, numbness to the face,arms or legs then call 911 and go to the nearest emergency room. * Attachments The following attachments cannot be sent through Care Everywhere. * Dizziness (Latvian) * Alta Maneuver: Vertigo: Exercises (Latvian) * Vertigo (Latvian) * Vertigo: Cawthorne Exercises (Latvian) documented in this encounterBON WEST ANAHEIM MEDICAL CENTERAppography Work Phone: [phone] 112-142702-21-2023 Evaluation note* Encounter Date Diagnosis Assessment Notes Treatment Notes Treatment Clinical Notes Jun, Chronic maxillary sinusitis (ICD-10 - J32.0) [facility] Other 12-21-2022 NoteHNO ID: [id number] Author: Tamra Grewal MD Service: Electrophysiology Author Type: Physician Type: Progress Notes Filed: 05/02/2022 2:26 PM Note Text: [facility] NOTE DEPARTMENT OF CARDIOLOGY BECKY NAME: RUFINO COLLINS [facility] NO.: [id number] DATE OF SERVICE: 05/01/2022 PCP: Manav Fernandez M.D. Ms. Collins is a 81-year-old female with a dual chamber pacemaker. She is here with her and daughter. 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 Over the years she developed complete heart block. She has no organic heart disease. She goes about her activities of daily living without dyspnea, chest discomfort, tachypalpitations or dizziness. MEDICATIONS: Propranolol, vitamins, minerals, supplements, Claritin-D24, BuSpar, Protonix and Synthroid. PHYSICAL EXAMINATION: She looks well, and she is in good spirits. Blood pressure 147/68, pulse rate 85 and regular. The pacemaker pocket shows no evidence for infection. The device is tilted somewhat, as it has been, but is not causing tension on the skin. 1st and 2nd heart sounds normal without murmurs or gallops. Interrogation of her [employer] model #2240 [employer] reveals A sense/V pace as the presenting EGM. The underlying rhythm is sinus rhythm with complete heart block. Projected longevity is 2.1 years. No atrial or significant ventricular arrhythmias. Lead functions are normal. RA pacing 3.9%, RV pacing greater than 99%. PLAN: Continue remote checks every 3 months and I will see her again in 1 year. DICTATED BY: Tamra Grewal M.D. FLY/Hoda JOB# [id number] History of Present illness Narrative* Rachid Odell MD - 01/24/2022 2:05 PM EDT NEUROLOGY PROGRESS NOTE Rufino Collins is a 81 year old female. Who has a history of tremors comes in for follow up. Interval History Rufino Collins is a 81 year old female, with a history of essential tremors, peripheral neuropathy comes in today complaining of tremors. She was a patient of Dr. Gary before and this is the first time I am seeing this patient. About 2 years ago she started to have tremors she states that wakes her up in the middle of the night. Sometimes she has a hard time falling back asleep because of the tremors. She has become anxious, feels fatigued during the day she attributes because of lack of sleepthe night before. She was tried on Mysoline in the past but did not work. She also was tried on atenolol to no avail. She has had peripheral neuropathy for quite some time now having numbness and ting ling of the feet sometimes difficulty with balance. Patient doing very well , Her tremors are controlled with propranolol she takes 10 mg 4 times a day which will be refilled.Again she has no signs of Parkinson's disease. ACTIVE PROBLEM LIST Hearing Loss, Sensorineural, Unilateral Osteoarthrosis, Unspecified Whether Generalized Or Localized, Lower Leg S/P Tkr (Total Knee Replacement) Using Cement Hypothyroidism Hypertension Dyspnea On Exertion Mobitz Type 2 Second Degree Heart Block Bradycardia Pulmonary Embolus (Hcc) Dysthymia Carpal Tunnel Syndrome of Right Wrist PAST SURGICAL HISTORY Procedure Laterality Date ADENOIDECTOMY PRIMARY <AGE 12 1961 Adenoidectomy CHG HYSTERECTOMY W/ 1978 CHOLECYSTECTOMY 1972 PAST SURGICAL HISTORY OF lens of both eye replaced PAST SURGICAL HISTORY OF 2006 left knee replaced PAST SURGICAL HISTORY OF orthoscopic knee surgery twice on left knee PAST SURGICAL HISTORY OF polyp removed from left side of nose PAST SURGICAL HISTORY OF right pinky cut off and repaired PAST SURGICAL HISTORY OF 06/26/2009 BAHA implant TONSILLECTOMY PRIMARY/SECONDARY <AGE 12 1961 Tonsillectomy Current Outpatient Medications on File Prior to Visit Medication Sig Acetaminophen-Caffeine (TENSION HEADACHE PAIN RELIEVER) 500-65 mg tab Take 2 tablets by mouth twicedaily. 2 tablets in am, 1 tablet after lunch Vitamin E, dl, acetate, (VITAMIN E) 400 unit capsule Take 400 Units by mouth as needed. vit B complx-folic ac-C-biotin 1 mg-100 mg- 300 mcg tab Take by mouth. Cinnamon Bark (CINNAMON) 500 mg cap Take 2 capsules by mouth once daily. loratadine-pseudoephedrine ER (CLARITIN-D 24 HOUR) 10-240 mg Tb24 Take 1 tablet by mouth once daily. busPIRone (BUSPAR) 15 mg tablet Take 1 tablet by mouth twice daily. Cholecalciferol, Vitamin D3, 10,000 unit cap Take by mouth once daily. pantoprazole DR (PROTONIX) 40 mg tablet Take 40 mg by mouth once daily. levothyroxine (SYNTHROID) 100 mcg tablet Take 1 tablet by mouth daily before breakfast. (Patient taking differently: Take 112 mcg by mouth daily before breakfast. ) VITAMIN B COMPLEX (B COMPLEX-100 ORAL) Take 1 capsule by mouth once daily. Patient denies taking this any longer Current Facility-Administered Medications on File Prior to Visit Medication propranolol 10 mg tab(s) (INDERAL) Social History Tobacco Use Smoking status: Never Smokeless tobacco: Never Substance Use Topics Alcohol use: No Drug use: No family history includes Cancer in her mother; Diabetes in her mother; Heart in her mother; Hypertension in her mother; Lipids in her mother. GENERAL:No weight loss, malaise or fevers., SEE HPI HEENT:Negative for frequent or significant headaches, No changes in hearing or vision, no nose bleeds or other nasal problems NECK:Negative for lumps, goiter, pain and significant neck swelling RESPIRATORY: Negative for cough, wheezing or shortness of breath. CARDIOVASCULAR: Negative for chest pain, leg swelling or palpitations. GASTROINTESTINAL: Negative for abdominal discomfort, blood in stools or black stools or change in bowel habits See HPI. All systems reviewed and are negative 01/24/22 1400 BP: 134/88 Pulse: 80 PHYSICAL EXAMINATION: General appearance: well appearing, alert, in no acute distress Neck: Supple Carotid Auscultation: Without bruits Lungs: Lungs clear to auscultation CVS: RRR without murmur Neurological exam: MENTAL STATUS: Alert, oriented to person, place and time and Follows commands CRANIAL NERVES: PERRLA, EOM's intact, Face symmetric, No dysarthria, and Tongue protrudes midline MOTOR: No drift MOTOR STRENGTH: Upper and lower extremity 5/5 bilaterally REFLEXES: UE and LE reflexes are equal and reactive SENSATION: Intact light touch COORDINATION: Finger-to- nose-finger intact bilaterally GAIT: Walks with a cane IMPRESSION: 1. Essential tremor PLAN: Propranolol refilled Any problems or concerns to call me or primary care physician immediately or go straight to the emergency department Return in about 6 months (around 07/24/2022). ASSESSMENT/PLAN: 1. Essential tremor - ICD9: 333.1, ICD10: G25.0 Rachid Odell MD I spent a total of 30 minutes on the date of the service which included preparing to see the patient, [id number] patient care, completing clinical documentation, obtaining and/or reviewing separately obtained history, performing a medically appropriate examination, counseling and educating the pat ient/family/caregiver, and ordering medications, tests, or procedures. SIGNATURE: Rachid Odell MD PATIENT NAME: Rufino Collins DATE: January 24, 2022 TIME: 2:17 PM documented in this encounterPrem[facility] Hospital Discharge instructions Patient Education 11/23/2021 11:38:26 Kegel Exercises Kegel Exercises Kegel exercises can help strengthen your pelvic floor muscles. The pelvic floor is a group of muscles that support your rectum, small intestine, and bladder. In females, pelvic floor muscles also help support the womb (uterus). These muscles help you control the flow of urine and stool. Kegel exercises are painless and simple, and they do not require any equipment. Your provider may suggest Kegel exercises to: Improve bladder and bowel control. Improve sexual response. Improve weak pelvic floor muscles after surgery to remove the uterus (hysterectomy) or (females). Improve weak pelvic floor muscles after prostate gland removal or surgery (males). Kegel exercises involve squeezing your pelvic floor muscles, which are the same muscles you squeezewhen you try to stop the flow of urine or keep from passing gas. The exercises can be done while sitting, standing, or lying down, but it is best to vary your position. Exercises How to do Kegel exercises: 1.Squeeze your pelvic floor muscles tight. You should feel a tight lift in your rectal area. If youare a female, you should also feel a tightness in your vaginal area. Keep your stomach, buttocks, and legs relaxed. 2.Hold the muscles tight for up to 10 seconds. 3.Breathe normally. 4.Relax your muscles. 5.Repeat as told by your health care provider. Repeat this exercise daily as told by your health care provider. Continue to do this exercise for at least 4 6 weeks, or for as long as told by your health care provider. You may be referred to a physical therapist who can help you learn more about how to do Kegel exercises. Depending on your condition, your health care provider may recommend: Varying how long you squeeze your muscles. Doing several sets of exercises every day. Doing exercises for several weeks. Making Kegel exercises a part of your regular exercise routine. This information is not intended to replace advice given to you by your health care provider. Make sure you discuss any questions you have with your health care provider. Document Released: 04/14/2013 Document Revised: 12/16/2018 Document Reviewed: 12/16/2018 [employer] Patient Education 2020 [employer]. 11/23/2021 11:25:05 Kidney Stones, Vtvs-vy-Lvok Kidney Stones Kidney stones are rock-like masses that form inside of the kidneys. Kidneys are organs that make pee (urine). A kidney stone may move into other parts of the urinary tract, including: The tubes that connect the kidneys to the bladder (ureters). The bladder. The tube that carries urine out of the body (urethra). Kidney stones can cause very bad pain and can block the flow of pee. The stone usually leaves your body (passes) through your pee. You may need to have a doctor take out the stone. What are the causes? Kidney stones may be caused by: A condition in which certain glands make too much parathyroid hormone (primary hyperparathyroidism). A buildup of a type of crystals in the bladder made of a chemical called uric acid. The body makes uric acid when you eat certain foods. Narrowing (stricture) of one or both of the ureters. A kidney blockage that you were born with. Past surgery on the kidney or the ureters, such as gastric bypass surgery. What increases the risk? You are more likely to develop this condition if: You have had a kidney stone in the past. You have a family history of kidney stones. You do not drink enough water. You eat a diet that is high in protein, salt (sodium), or sugar. You are overweight or very overweight (obese). What are the signs or symptoms? Symptoms of a kidney stone may include: Pain in the side of the belly, right below the ribs (flank pain). Pain usually spreads (radiates) to the groin. Needing to pee often or right away (urgently). Pain when going pee (urinating). Blood in your pee (hematuria). Feeling like you may vomit (nauseous). Vomiting. Fever and chills. How is this treated? Treatment depends on the size, location, and makeup of the kidney stones. The stones will often pass out of the body through peeing. You may need to: Drink more fluid to help pass the stone. In some cases, you may be given fluids through an IV tube put into one of your veins at the hospital. Take medicine for pain. Make changes in your diet to help keep kidney stones from coming back. Sometimes, medical procedures are needed to remove a kidney stone. This may involve: A procedure to break up kidney stones using a beam of light (laser) or shock waves. Surgery to remove the kidney stones. Follow these instructions at home: Medicines Take gywq-avk-hshlifr and prescription medicines only as told by your doctor. Ask your doctor if the medicine prescribed to you requires you to avoid driving or using heavy machinery. Eating and drinking Drink enough fluid to keep your pee pale yellow. You may be told to drink at least 8 10 glasses of water each day. This will help you pass the stone. If told by your doctor, change your diet. This may include: ?Limiting how much salt you eat. ?Eating more fruits and vegetables. ?Limiting how much meat, poultry, fish, and eggs you eat. Follow instructions from your doctor about eating or drinking restrictions. General instructions Collect pee samples as told by your doctor. You may need to collect a pee sample: ?24 hours after a stone comes out. ?8 12 weeks after a stone comes out, and every 6 12 months after that. Strain your pee every time you pee (urinate), for as long as told. Use the strainer that your doctor recommends. Do not throw out the stone. Keep it so that it can be tested by your doctor. Keep all follow-up visits as told by your doctor. This is important. You may need follow-up tests. How is this prevented? To prevent another kidney stone: Drink enough fluid to keep your pee pale yellow. This is the best way to prevent kidney stones. Eat healthy foods. Avoid certain foods as told by your doctor. You may be told to eat less protein. Stay at a healthy weight. Where to find more information National Kidney Foundation (NKF): www.kidney.org [facility] (UCF): www.urologyhealth.org Contact a doctor if: You have pain that gets worse or does not get better with medicine. Get help right away if: You have a fever or chills. You get very bad pain. You get new pain in your belly (abdomen). You pass out (faint). You cannot pee. Summary Kidney stones are rock-like masses that form inside of the kidneys. Kidney stones can cause very bad pain and can block the flow of pee. The stones will often pass out of the body through peeing. Drink enough fluid to keep your pee pale yellow. This information is not intended to replace advice given to you by your health care provider. Make sure you discuss any questions you have with your health care provider. Document Released: 10/14/2008 Document Revised: 09/14/2019 Document Reviewed: 09/14/2019 [employer] Patient Education 2020 [employer]. Follow Up Care 09/18/2020 14:42:38 With:ANAND ALMARAZ, Natalie Mosley, URL Address: [address] [place] [address]- When:Within 1 Year(s) Comments:w/ MARCELINO [facility] 05-31-2022 Evaluation note* Encounter Date Diagnosis Assessment Notes Treatment Notes Treatment Clinical Notes September, GERD (gastroesophageal reflux disease) (ICD-10 - K21.9) Continue Pantoprazole 40mg daily September, Irritable bowel syndrome with diarrhea (ICD-10 - K58.0) Continue Dicyclomine prn September, Hemorrhoids (ICD-10 - K64.9) Start Anusol cream [employer] Other Evaluation + Plan note Future Appointments Appointment Date:11/25/2022 01:15:00 PM Scheduled Provider:Natalie CARLTON MD Location:[facility] Appointment Type:URO Office Visit [facility] evaluation + Plan note Future Appointments Appointment Date:04/30/2023 11:00:00 AM Scheduled Provider: Location:[facility] Appointment Type:URO Nurse Visit [facility] Evaluation + Plan note Future Appointments Appointment Date:04/30/2023 11:00:00 AM Scheduled Provider: Location:[facility] Appointment Type:URO Nurse Visit Diagnostic Tests Pending * [facility] [facility] Diagnosis Essential tremor- Primary Essential and other specified forms of tremor [facility] Diagnosis Pacemaker- Primary Cardiac pacemaker in situ documented in this encounter [facility] note* Diagnosis Dizziness- Primary Dizziness and giddiness documented in this encounter [facility] [employer] Work Phone: evaluation noteNo InformationNortFox [facility] [employer] Other Evaluation note* Diagnosis Tremor- Primary Abnormal involuntary movements Vertigo Dizziness and giddiness documented in this encounter [facility] note* Diagnosis Essential tremor- Primary Essential and other specified forms of tremor documented in this encounter [facility] note* Diagnosis Pacemaker- Primary Cardiac pacemaker in situ documented in this encounter [facility] noteNo assessment information [facility]White [facility] Work Phone: History general Narrative - Reported* Type Description Date Medical History hypertension Medical History thyroid disease Medical History anxiety Medical History edema Surgical History HYSTERECTOMY Surgical History CHOLECYSTECTOMY Surgical History BILATERAL KNEE REPLACEMENT Surgical History TONSILLECTOMY Surgical History CTS Surgical History head surgery Surgical History lt hand carpal tunnel surgery Surgical History PACEMAKER Surgical History carpal tunnel release Hospitalization History SEE ABOVE SURGERY Hospitalization History kidney stones 10/2016 [facility] [employer] Other Hospital course Narrative No data available for this section [facility] Discharge instructions No data available for this section [facility] No data available for this section [facility] reason for referral (narrative)* Outpatient Procedure (Routine) - Pending Review Specialty Diagnoses / Procedures Referred By Luiz hampton [facility] Diagnoses Pacemaker Procedures ECG COMPLETE ECG ROUTINE ECG W/LEAST 12 LDS W/I&[place] [address] [place] [address] [facility] [place] [address] [place] [address] Referral ID Status Reason Start Date Expiration Date Visits Requested Visits Authorized [id number] Pending Review Auto-Generat ed Referral 04/16/2023 04/15/2024 1 1 [facility] Summary Purpose Family History No Family History Records FoundNo Family History Records FoundNo Family History Records Found No data available for this section No data available for this section No Family History Records Found No data available for this section No Family History Records FoundNo Family History Records Found Advance Directives Documents on File Type Date Recorded 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 Advance Directive(s) Advance Directive(s) 01/16/2007 Documents on File Type Date Recorded 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 Advance Directive(s) Advance Directive(s) 01/16/2007 Chief Complaint and Reason for Visit Chief Complaint Dysuria Additional Source Comments INFORMATION SOURCE (unrecogn ized section and content) DATE CREATED AUTHOR 10/31/2017 [facility] DATE CREATED AUTHOR AUTHOR'S ORGANIZ ATION 07/17/2022 [facility] DATE CREATED AUTHOR AUTHOR'S ORGANIZ ATION 07/19/2022 [facility] DATE CREATED AUTHOR AUTHOR'S ORGANIZ ATION 04/19/[address] [facility] DATE CREATED AUTHOR AUTHOR'S ORGANIZ ATION 05/01/2023 [facility] DATE CREATED AUTHOR AUTHOR'S ORGANIZ ATION 05/07/2023 [facility] REASON FOR VISIT (unrecogniz ed section and content) dizzy after eats Reason Comments Established Patient Reason Comments Follow Up 1 Year Follow Up/Dev ice Check Reason Comments Dizziness Reason Comments Appointment Reason Comments New Patient Evaluation Reason Comments Tremor Reason Onset Date Comments Refill Request 03/04/2023 Reason Comments Follow Up Care Team (unrecognized sect ion and content) Sports Photographer Relationship Specialty Start Date End Date Manav Fernandez DO PCP - General Internal Medicine 02/07/15 Tamra Grewal MD Primary Staff Physician Cardiology 07/28/18 Sports Photographer Relationship Specialty Start Date End Date Manav Fernanedz DO PCP - General Internal Medicine 02/07/15 Tamra Grewal MD Primary Staff Physician Cardiology 07/28/18 Sports Photographer Relationship Specialty Start Date End Date Manav Frenandez, DO PCP - General Internal Medicine 02/07/15 Tamra Grewal MD Primary Staff Physician Cardiology 07/28/18 Sports Photographer Relationship Specialty Start Date End Date Manav Fernandez DO PCP - General Internal Medicine 02/07/15 Tamra Grewal MD Primary Staff Physician Cardiology 07/28/18 Sports Photographer Relationship Specialty Start Date End Date Manav Fernandez DO PCP - General Internal Medicine 04/23/17 Sports Photographer Relationship Specialty Start Date End Date Manav Fernandez DO PCP - General Internal Medicine 02/07/15 Tamra Grewal MD Primary Staff Physician Cardiology 07/28/18 Sports Photographer Relationship Specialty Start Date End Date Manav Fernandez DO PCP - General Internal Medicine 02/07/15 Tamra Grewal MD Primary Staff Physician Cardiology 07/28/18 Sports Photographer Relationship Specialty Start Date End Date Manav Fernandez DO PCP - General Internal Medicine 02/07/15 Tamra Grewal MD Primary Staff Physician Cardiology 07/28/18 Sports Photographer Relationship Specialty Start Date End Date Manav Fernandez DO PCP - General Internal Medicine 02/07/15 Tamra Grewal MD Primary Staff Physician Cardiology 07/28/18 Sports Photographer Relationship Specialty Start Date End Date Manav Fernandez DO PCP - General Internal Medicine 02/07/15 Tamra Grewal MD Primary Staff Physician Cardiology 07/28/18 Sports Photographer Relationship Specialty Start Date End Date Manav Fernandez DO PCP - General Internal Medicine 02/07/15 Tamra Grewal MD Primary Staff Physician Cardiology 07/28/18 Sports Photographer Relationship Specialty Start Date End Date Manav Fernandez DO PCP - General Internal Medicine 02/07/15 Tamra Grewal MD Primary Staff Physician Cardiology 07/28/18 Sports Photographer Relationship Specialty Start Date End Date Manav Fernandez DO PCP - General Internal Medicine 02/07/15 Tamra Grewal MD Primary Staff Physician Cardiology 07/28/18 Team Status: Inactive Member Role Status Dates Nina Wallace , IT COMPLIANCE ANALYST-C Attending Provider Active Source Comments (unrecognize d section and content) In the event this informatio n is protected by the Federal Confidentiality of Alcohol and Drug Abuse Patient Records regulations: The Federal rules restrict any use of the information to criminally investigate or prosecute any alcohol or drug abuse patient.[facility] the event this information is protected by the Federal Confidentiality of Alcohol and Drug Abuse Patient Records regulations: The Federal rules restrict any use of the information to criminally investigate or prosecute any alcohol or drug abuse patient.[facility] the event this information is protected by the Federal Confidentiality of Alcohol and Drug Abuse Patient Records regulations: The Federal rules restrict any use of the information to criminally investigate or prosecute any alcohol or drug abuse patient.[facility] the event this information is protected by the Federal Confidentiality of Alcohol and Drug Abuse Patient Records regulations: The Federal rules restrict any use of the information to criminally investigate or prosecute any alcohol or drug abuse patient.[facility] the event this information is protected by the Federal Confidentiality of Alcohol and Drug Abuse Patient Records regulations: The Federal rules restrict any use of the information to criminally investigate or prosecute any alcohol or drug abuse patient.[facility] the event this information is protected by the Federal Confidentiality of Alcohol and Drug Abuse Patient Records regulations: The Federal rules restrict any use of the information to criminally investigate or prosecute any alcohol or drug abuse patient.[facility] the event this information is protected by the Federal Confidentiality of Alcohol and Drug Abuse Patient Records regulations: The Federal rules restrict any use of the information to criminally investigate or prosecute any alcohol or drug abuse patient.[facility] the event this information is protected by the Federal Confidentiality of Alcohol and Drug Abuse Patient Records regulations: The Federal rules restrict any use of the information to criminally investigate or prosecute any alcohol or drug abuse patient.[facility] the event this information is protected by the Federal Confidentiality of Alcohol and Drug Abuse Patient Records regulations: The Federal rules restrict any use of the information to criminally investigate or prosecute any alcohol or drug abuse patient.[facility] the event this information is protected by the Federal Confidentiality of Alcohol and Drug Abuse Patient Records regulations: The Federal rules restrict any use of the information to criminally investigate or prosecute any alcohol or drug abuse patient.[facility] the event this information is protected by the Federal Confidentiality of Alcohol and Drug Abuse Patient Records regulations: The Federal rules restrict any use of the information to criminally investigate or prosecute any alcohol or drug abuse patient.[facility] the event this information is protected by the Federal Confidentiality of Alcohol and Drug Abuse Patient Records regulations: The Federal rules restrict any use of the information to criminally investigate or prosecute any alcohol or drug abuse patient.[facility] the event this information is protected by the Federal Confidentiality of Alcohol and Drug Abuse Patient Records regulations: The Federal rules restrict any use of the information to criminally investigate or prosecute any alcohol or drug abuse patient.[facility] the event this information is protected by the Federal Confidentiality of Alcohol and Drug Abuse Patient Records regulations: The Federal rules restrict any use of the information to criminally investigate or prosecute any alcohol or drug abuse patient.[facility] the event this information is protected by the Federal Confidentiality of Alcohol and Drug Abuse Patient Records regulations: The Federal rules restrict any use of the information to criminally investigate or prosecute any alcohol or drug abuse patient.[facility] the event this information is protected by the Federal Confidentiality of Alcohol and Drug Abuse Patient Records regulations: The Federal rules restrict any use of the information to criminally investigate or prosecute any alcohol or drug abuse patient.[facility] Goals (unrecognized section and content) Goals may be documented in a n alternate section FOR RECORDS PERTAINING TO PATIENTS WHO ARE OR HAVE BEEN ENROLLED IN A CHEMICAL DEPENDENCY/SUBSTANCEABUSE PROGRAM, SOME INFORMATION MAY BE OMITTED. This clinical summary was aggregated from multiple sources. Caution should be exercised in using it in the provision of clinical care. This summary normalizes information from multiple sources, and as a consequence, information in this document may materially change the coding, format and clinical context of patient data. In addition, data may be omitted in some cases. CLINICAL DECISIONS SHOULD BE BASED ON THE PRIMARY CLINICAL RECORDS. [facility] [employer] [facility]. provides no warranty or guarantee of the accuracy or completeness of information in this document.
[2023-05-16] MEDS: ONDANSETRON PF 4 MG/2 ML VIAL IV (16:25)
[2023-05-16] MEDS: PROPRANOLOL HCL 20 MG TABLET 10 MG PO ×2 (16:25→21:55)
[2023-05-16] MEDS: BUSPIRONE HCL 15 MG TABLET 7.5 MG PO (16:25)
[2023-05-16] MEDS: ACETAMINOPHEN 500 MG TABLET 1000 MG PO ×2 (16:50→23:22)
[2023-05-16] MEDS: MECLIZINE HCL 12.5 MG TABLET 25 MG PO ×2 (18:10→21:56)
[2023-05-16] MEDS: BUSPIRONE HCL 15 MG TABLET PO (21:55)
[2023-05-17] VITALS (18 sets, daily range): BP systolic 137–166; BP diastolic 72–86; PULSE 60–91; RESP 18; TEMP 36.5–36.6; O2SAT 90–91
[2023-05-17] MEDS: PROPRANOLOL HCL 20 MG TABLET 10 MG PO ×4 (06:17→21:07)
[2023-05-17] MEDS: LEVOTHYROXINE SODIUM 112 MCG TABLET PO (06:17)
[2023-05-17] MEDS: MECLIZINE HCL 12.5 MG TABLET 25 MG PO ×4 (06:18→23:23)
[2023-05-17] MEDS: ACETAMINOPHEN 500 MG TABLET 1000 MG PO ×2 (07:27→21:06)
[2023-05-17] MEDS: 0.9 % SODIUM CHLORIDE 1,000 ML 125 ML IV ×3 (07:32→23:30)
[2023-05-17 07:33] LABS: Basophils Absolute Auto 0.1 10^3/uL (0.0-0.1); Basophils Percent Auto 1.1 % (0.2-2.0); Eosinophils Absolute Auto 0.2 10^3/uL (0.0-0.7); Eosinophils Percent Auto 2.8 % (0.9-7.0); Hematocrit 41.4 % (36.0-48.0); Hemoglobin 13.3 g/dL (12.0-16.0); Immature Granulocytes Abs Auto 0.01 10^3/uL (0.00-0.03); Immature Granulocytes Pct Auto 0.1 % (0.0-0.5); Lymphocytes Absolute Auto 2.5 10^3/uL (1.2-3.8); Lymphocytes Percent Auto 32.8 % (20.5-60.0); Mean Corpuscular HGB Conc 32.1 g/dL (29.9-35.2); Mean Corpuscular Hemoglobin 29.4 pg (26.7-34.0); Mean Corpuscular Volume 91.6 fL (81.0-99.0); Mean Platelet Volume 11.1 fL (9.5-13.5); Monocytes Absolute Auto 0.7 10^3/uL (0.3-0.8); Monocytes Percent Auto 8.7 % (1.7-12.0); Neutrophils Absolute Auto 4.2 10^3/uL (1.4-6.5); Neutrophils Percent Auto 54.5 % (43.0-75.0); Platelet Count 230 10^3/uL (150-450); Red Blood Count 4.52 10^6/uL (4.20-5.40); Red Cell Distribution Width 13.2 % (11.0-15.0); White Blood Count 7.6 10^3/uL (4.0-11.0)
[2023-05-17 07:47] LABS: Anion Gap 11.8; BUN Creatinine Ratio 18.2; Calcium 8.7 mg/dL (8.5-10.1); Carbon Dioxide 23.9 mmol/L (21.0-32.0); Chloride 105 mmol/L (98-107); Estimated GFR (African America >60 (>=60); Estimated GFR (Non-African Ame >60 (>=60); Glucose 141 mg/dL (74-106); Potassium 3.7 mmol/L (3.5-5.1); Sodium 137 mmol/L (136-145)
[2023-05-17] MEDS: BUSPIRONE HCL 15 MG TABLET PO ×2 (09:21→21:05)
--- NOTE | 2023-05-17 09:47 | P.HP_ITS ---
H&P: HPI History of Present Illness Chief complaint: UTI Symptoms,Hyponatremia,Dizziness,Urinary Incont Narrative: Patient still feeling lightheaded. Her sodium has returned to normal. She describes lightheadedness to me more as a vertigo symptom. Head movement makes it worse. Turning over in bed makes it worse. Review of Systems ROS Status of ROS 10 or more systems reviewed and unremark able except as noted in history and below [facility] Medical History (Updated 05/17/23 @ 13:39 by Alton Darden MD) Dizziness ?R42 - Dizziness and giddiness (ICD-10) Heart block ?I45.9 - Conduction disorder, unspecified (ICD-10) Macular degeneration ?H35.30 - Unspecified macular degeneration (ICD-10) Pacemaker ?Z95.0 - Presence of cardiac pacemaker (ICD-10) UTI (urinary tract infection) ?N39.0 - Urinary tract infection, site not specified (ICD-10) Kidney calculi ?N20.0 - Calculus of kidney (ICD-10) Surgical History (Updated 05/16/23 @ 15:32 by Marissa Hoover) H/O: hysterectomy ?Z90.710 - Acquired absence of both cervix and uterus (ICD-10) Hx of carpal tunnel repair ?Z98.890 - Other specified postprocedural states (ICD-10) History of bilateral knee replacement ?Z96.653 - Presence of artificial knee joint, bilateral (ICD-10) History of appendectomy ?Z90.49 - Acquired absence of other specified parts of digestive tract (ICD- 10) Hx of cholecystectomy ?Z90.49 - Acquired absence of other specified parts of digestive tract (ICD- 10) Social History Smoking status: Former smoker Highest level of school completed/degree received: high school graduate Meds Home Medications and Allergies Home Medications Medication Instructions Recorded Confirmed Type buspirone 15 mg tablet 15 mg PO BID 05/16/23 05/16/23 History buspirone 7.5 mg tablet 7.5 mg PO 1400 05/16/23 05/16/23 History levothyroxine 112 mcg tablet 112 mcg PO DAILY 05/16/23 05/16/23 History nortriptyline 10 mg capsule 10 mg PO BEDTIME 05/16/23 05/16/23 History propranolol 10 mg tablet 10 mg PO QID 05/16/23 05/16/23 History mv-mn-folic 200 mcg-vit K 15 1 cap PO BID 05/17/23 05/17/23 History mcg-lutein 5 mg-zeaxanthin 1 mg capsule (PreserVision AREDS 2 Plus Multivit) Allergies Allergy/AdvReac Type Severity Reaction Status Date / Time Penicillins AdvReac Severe Nausea Verified 05/16/23 11:23 capsaicin AdvReac Verified 05/16/23 11:23 moxifloxacin [From Avelox] AdvReac Verified 05/16/23 11:25 Sulfa (Sulfonamide AdvReac Nausea Verified 05/16/23 11:23 Antibiotics) Exam Constitutional Vital Signs, click to edit/add: Last Vital Signs Temp 97.9 F 05/17/23 05:28 Pulse 69 05/17/23 07:59 Resp 18 05/17/23 08:00 BP 137/77 05/17/23 05:28 Pulse Ox 90 L 05/17/23 05:28 O2 Del Method Room Air 05/17/23 05:28 Documenting provider has reviewed patient's vital signs: yes Common normals: apparent distress (Mildly anxious) Chest Common normals: inspection of chest normal Respiratory Common normals: normal respiratory effort and no retractions Cardio Common normals: regular rate and regular rhythm Neuro Other: Nystagmus on bilateral conjugate gaze Results Labs Labs: Short CBC 05/16/23 05/17/23 Range/Units 11:30 06:24 WBC 7.6 7.6 (4.0-11.0) 10^3/uL Hgb 14.7 13.3 (12.0-16.0) g/dL Hct 45.2 41.4 (36.0-48.0) % Plt Count 255 230 (150-450) 10^3/uL BMP 05/16/23 05/17/23 11:30 06:24 Sodium 129 L 137 Potassium 4.0 3.7 Chloride 99 105 Carbon Dioxide 29.0 23.9 BUN 16.0 14.0 Creatinine 0.84 0.77 Glucose 152 H 141 H Calcium 9.6 8.7 Liver Function 05/16/23 Range/Units 11:30 Total Bilirubin 0.4 (0.2-1.0) mg/dL AST 13 L (15-37) U/L ALT 17 (14-59) U/L Alkaline Phosphatase 68 (46-116) U/L Albumin 3.4 (3.4-5.0) g/dL Urine 05/16/23 Range/Units 14:10 Urine Color Lt. yellow (YELLOW) Urine Clarity Slightly cloudy A (CLEAR) Urine pH 6.5 (5.0-9.0) Ur Specific [place] 1.010 (1.005-1.025) Urine Protein Negative (NEG/TRACE) mg/dL Urine Glucose (UA) Negative (NEGATIVE) mg/dL Assessment and Plan Assessment and Plan (1) Hyponatremia: (2) Vertigo: Plan Patient with increasing fatigue. Found to have significant hyponatremia and dehydration. That is resolved. Still with significant lightheadedness. Acute vertigo-we will add [id number] meclizine, Decadron IV, IV antibiotics, physical therapy Generalized anxiety disorder-will add as needed Vistaril Acute UTI-check on culture tomorrow. Patient may require inpatient therapy if unable to improve vertigo between today and tomorrow. May benefit from rehab stay as well. Patient very emotional about the Urinary Catheter Management Urinary Catheter Management Straight: Cath placed during this visit: yes Urethral indwelling: No Insertion date: 05/16/23 Insertion time: 14:17
[2023-05-17] MEDS: CEFTRIAXONE 1,000 MG in 0.9 % SODIUM CHLORIDE 50 ML 100 MG IV (10:54)
[2023-05-17] MEDS: HYDROXYZINE PAMOATE 25 MG CAPSULE PO ×2 (11:45→17:17)
[2023-05-17] MEDS: DEXAMETHASONE SOD PHOS 4 MG/ML VIAL 6 MG IV (11:52)
[2023-05-17] MEDS: BUSPIRONE HCL 15 MG TABLET 7.5 MG PO (14:03)
[2023-05-18] VITALS (9 sets, daily range): BP systolic 123; BP diastolic 64; PULSE 73–85; RESP 18; TEMP 36.7; O2SAT 90
[2023-05-18] MEDS: LEVOTHYROXINE SODIUM 112 MCG TABLET PO (05:28)
[2023-05-18] MEDS: PROPRANOLOL HCL 20 MG TABLET 10 MG PO ×2 (05:28→12:33)
[2023-05-18] MEDS: MECLIZINE HCL 12.5 MG TABLET 25 MG PO ×2 (05:28→12:33)
[2023-05-18 06:17] LABS: Basophils Percent Auto 0.2 % (0.2-2.0); Hematocrit 40.1 % (36.0-48.0); Hemoglobin 12.7 g/dL (12.0-16.0); Immature Granulocytes Abs Auto 0.05 10^3/uL (0.00-0.03); Immature Granulocytes Pct Auto 0.4 % (0.0-0.5); Lymphocytes Absolute Auto 2.3 10^3/uL (1.2-3.8); Lymphocytes Percent Auto 20.2 % (20.5-60.0); Mean Corpuscular HGB Conc 31.7 g/dL (29.9-35.2); Mean Corpuscular Hemoglobin 28.9 pg (26.7-34.0); Mean Corpuscular Volume 91.1 fL (81.0-99.0); Mean Platelet Volume 11.4 fL (9.5-13.5); Monocytes Absolute Auto 0.8 10^3/uL (0.3-0.8); Monocytes Percent Auto 6.8 % (1.7-12.0); Neutrophils Absolute Auto 8.2 10^3/uL (1.4-6.5); Neutrophils Percent Auto 72.4 % (43.0-75.0); Platelet Count 246 10^3/uL (150-450); Red Cell Distribution Width 13.1 % (11.0-15.0); White Blood Count 11.3 10^3/uL (4.0-11.0)
[2023-05-18 06:28] LABS: Anion Gap 9.5; BUN Creatinine Ratio 18.2; Calcium 9.1 mg/dL (8.5-10.1); Carbon Dioxide 23.3 mmol/L (21.0-32.0); Chloride 105 mmol/L (98-107); Estimated GFR (African America >60 (>=60); Estimated GFR (Non-African Ame >60 (>=60); Glucose 242 mg/dL (74-106); Potassium 3.8 mmol/L (3.5-5.1); Sodium 134 mmol/L (136-145)
[2023-05-18] MEDS: 0.9 % SODIUM CHLORIDE 1,000 ML 125 ML IV (08:32)
[2023-05-18] MEDS: DEXAMETHASONE SOD PHOS 4 MG/ML VIAL 6 MG IV (09:24)
[2023-05-18] MEDS: BUSPIRONE HCL 15 MG TABLET PO (09:25)
--- NOTE | 2023-05-18 09:47 | P.DS_ITS ---
DS: Providers Provider Date of admission: 05/16/23 15:10 Primary care physician: Manav Fernandez DO Consults: 05/16/23 Consult to Dietitian Routine Reason For Exam: poor appetite Reason for consultation: poor appetite 05/16/23 15:49 Physical Therapy Eval and Treat Routine Reason for consultation: Weakness, lightheaded 05/17/23 09:40 Physical Therapy Eval and Treat Routine Reason for consultation: vertigo therapy Has provider been notified: No DS: Diagnosis Discharge Diagnosis (1) Hyponatremia: (2) Vertigo: Plan Patient with increasing fatigue. Found to have significant hyponatremia and dehydration. Acute vertigo Generalized anxiety disorder Acute UTI DS: Summary Hospital Course Hospital Course: Patient presented to the emergency with increasing weakness. Found to have significant hyponatremia with dehydration. Patient also describes vertigo type symptoms. We increased her vertigo treatment yesterday. She is much improved today. At this point if she ambulates well this morning she be discharged home in improving condition. Medications see list. Follow-up with PCP within the next week, follow-up on urine culture. Time Spent with Patient Time attestation: Total time spent providing and/or coordinating discharge services: Exam Constitutional Vital Signs, click to edit/add: Last Vital Signs Temp 98.0 F 05/18/23 05:33 Pulse 76 05/18/23 08:00 Resp 18 05/18/23 05:33 BP 123/64 05/18/23 05:33 Pulse Ox 90 L 05/18/23 05:33 O2 Del Method Room Air 05/18/23 05:33 Documenting provider has reviewed patient's vital signs: yes Common normals: apparent distress (Mildly anxious) Chest Common normals: inspection of chest normal Respiratory Common normals: normal respiratory effort and no retractions Cardio Common normals: regular rate and regular rhythm Neuro Other: No Nystagmus on bilateral conjugate gaze DS: Data Data Completed and Pending Labs on day of discharge: Labs from last 24 hours 05/18/23 04:48 WBC 11.3 H RBC 4.40 Hgb 12.7 Hct 40.1 MCV 91.1 MCH 28.9 MCHC 31.7 RDW 13.1 Plt Count 246 MPV 11.4 Neut % (Auto) 72.4 Lymph % (Auto) 20.2 L Marshall % (Auto) 6.8 Eos % (Auto) 0.0 L Baso % (Auto) 0.2 Neut # (Auto) 8.2 H Lymph # (Auto) 2.3 Marshall # (Auto) 0.8 Eos # (Auto) 0.0 Baso # (Auto) 0.0 Abs Immat Gran (auto) 0.05 H Imm/Tot Granulo (auto) 0.4 Sodium 134 L Potassium 3.8 Chloride 105 Carbon Dioxide 23.3 Anion Gap 9.5 BUN 14.0 Creatinine 0.77 Est GFR ( Amer) >60 Est GFR (Non-Af Amer) >60 BUN/Creatinine Ratio 18.2 Glucose 242 H Calcium 9.1 Discharge Plan Discharge Disposition: Home, Self-Care Condition: Fair Discharge Medications: New meclizine 25 mg tablet 25 mg PO QID PRN (Reason: dizziness) Qty: 20 0RF dexamethasone 6 mg tablet 6 mg PO DAILY Qty: 4 0RF cefdinir 300 mg capsule 600 mg PO DAILY Qty: 20 0RF Continued propranolol 10 mg tablet 10 mg PO QID nortriptyline 10 mg capsule 10 mg PO BEDTIME levothyroxine 112 mcg tablet 112 mcg PO DAILY buspirone 15 mg tablet 15 mg PO BID buspirone 7.5 mg tablet 7.5 mg PO 1400 PreserVision AREDS 2 Plus MV 200 mcg-15 mcg- 5 mg-1 mg capsule 1 cap PO BID Activity: resume usual activities as tolerated Diet: advance to your usual diet Patient Instructions: Meclizine (By mouth), Dexamethasone (By mouth), Cefdinir (By mouth), Urinary Tract Infection in Women (DC), Hyponatremia (DC), Vertigo (DC) Forms: Portal Instructions Follow Up Appointments: Call Dr. Simons office tomorrow for follow up appoin tment within the week. phone # [phone]
[2023-05-18] MEDS: CEFTRIAXONE 1,000 MG in 0.9 % SODIUM CHLORIDE 50 ML 100 MG IV (10:48)
[2023-05-18] MEDS: VITS A,C,E/LUTEIN/MINERALS 1 TABLET 1 TAB PO (10:49)
--- NOTE | 2023-05-19 16:14 | CM.DCFOLLOWU ---
Person spoke with:patient How are you feeling? well How is your pain? no pain Did you understand your discharge instructions? yes Do you have any questions about your discharge instructions? no Were you given any prescriptions at discharge? yes Were you able to get your prescriptions filled? yes Do you understand how to take your medications as ordered? yes Do you have any questions about your follow up appointment and do you plan to keep your follow up appointment? no questions, follow up made with Dr. Fernandez on 05/23/23 Is there anything else that you would like to discuss? no Questions/Comments/Concerns/Other:
== END 2023-05-18 12:46 | disposition home or self-care (01) ==
LOC: ER 12:05 → MS 15:18
PROVIDERS: Family Medicine; Admitting Provider Family Medicine; Emergency Provider Emergency Medicine; PCP Internal Medicine; Visit Provider Family Medicine
DX: E87.1 Hypo-osmolality and hyponatremia (principal); E86.0 Dehydration; R42 Dizziness and giddiness; R32 Unspecified urinary incontinence; N39.0 Urinary tract infection, site not specified; F41.1 Generalized anxiety disorder; Z79.899 Other long term (current) drug therapy; Z79.890 Hormone replacement therapy; Z87.440 Personal history of urinary (tract) infections; Z87.442 Personal history of urinary calculi; Z95.0 Presence of cardiac pacemaker; Z90.710 Acquired absence of both cervix and uterus; Z96.653 Presence of artificial knee joint, bilateral; Z90.49 Acquired absence of other specified parts of digestive tract; Z98.890 Other specified postprocedural states; Z87.891 Personal history of nicotine dependence; B96.20 Unspecified Escherichia coli [E. coli] as the cause of diseases classified elsewhere
CPT/HCPCS: 36415; 51701; 80048; 80053; 81001; 83735; 84484; 85025; 87086; 87150; 87186; 93005; 96361; 96365; 96366; 96375; 96376; 97162; 99285; G0378; J0696; J1100; J2405; Q0177

== ENCOUNTER 2023-07-08 14:18 | Outpatient (OUT) | payer MEDICARE, SELFPAY ==
[2023-07-08 14:50] LABS: Estimated Average Glucose 157 mg/dL; Glycohemoglobin A1C 7.1 % (4.5-6.2)
[2023-07-08 15:12] LABS: Anion Gap 11.6; Calcium 9.7 mg/dL (8.5-10.1); Carbon Dioxide 31.6 mmol/L (21.0-32.0); Chloride 101 mmol/L (98-107); Estimated GFR (African America >60 (>=60); Estimated GFR (Non-African Ame 53 (>=60); Glucose 141 mg/dL (74-106); Potassium 4.2 mmol/L (3.5-5.1); Sodium 140 mmol/L (136-145)
== END 2023-07-08 14:19 | disposition home or self-care (01) ==
LOC: LAB 14:19
PROVIDERS: PCP Internal Medicine; Visit Provider Internal Medicine
DX: E11.65 Type 2 diabetes mellitus with hyperglycemia (principal); I10 Essential (primary) hypertension
CPT/HCPCS: 36415; 80048; 83036

== ENCOUNTER 2023-11-14 12:52 | Outpatient (OUT) | payer MEDICARE, SELFPAY ==
--- OUTSIDE RECORDS SUMMARY | 2023-11-14 12:56 | XMS_ITS | CCD ---
Author Organization [facility] Care Team Providers Care Supervisor Film Processing Name Role Phone BRYANT SUAREZ Unavailable Unavailable Mook Santiago Unavailable MANAV FERNANDEZ Primary Care Physician Manav Fernandez DO Primary Care Provider Tamra Grewal MD Unavailable Manav eFrnandez DO Primary Care Provider Tamra Grewal MD Unavailable [phone] Manav Fernandez DO Primary Care Provider [phone] DR MANAV FERNANDEZ Primary Care Unavailable NATALIE [...] CARLTON Attending Unavailable NATALIE CARLTON Admitting Unavailable BALL, DR JEFFERS Primary Care Unavailable MOHINI, DR JEFFERS Admitting Unavailable BALL, DR JEFFERS Attending Unavailable BALL, DR JEFFERS Consulting Unavailable BALL, DR JEFFERS Primary Care Unavailable BALL, DR JEFFERS Admitting Unavailable BALL, DR JEFFERS Attending Unavailable BALL, DR JEFFERS Consulting Unavailable MANAV FERNANDEZ Primary Care Unavailable KM KIRBY Attending Unavailable Manav Fernandez Unavailable Tamra Grewal MD Unavailable Natalie CARLTON Attending Unavailable TIM THOMAS Attending Unavailab Roseann Hinojosa Attending Unavailable Cheryl Roseann X Admitting Unavailable Roseann Luna Attending Unavailable Nina Wallace Unavailable BUSHRA Wallace Attending Provider Nina Wallace Attending Unavailable Nina Wallace Admitting Unavailable NO FAMILY, PHYSICIAN Primary Care Unavailable MANAV FERNANDEZ Primary Care Unavailable RACHID ODELL Attending Unavailable RACHID ODELL Referring Unavailable MANAV FERNANDEZ Primary Care Unavailable TAMRA GREWAL Attending Unavailable MANAV FERNANDEZ Primary Care Unavailable MANAV FERNANDEZ Primary Care Unavailable RACHID ODELL Attending Unavailable Allergies Allergy Classification Reported Allergen(s) Allergy Type Date of Onset Reaction(s) Facility (20 sources) acetaminophen / oxyCODONE; Translations: [OXYCODONE-ACETAMI NOPHEN] Drug Allergy 12-03-19 07 Intolerance [facility] (20 sources) capsaicin; Translations: [CAPSAICIN] Drug Allergy 02-10-20 15 Itching [facility] (20 sources) cephalexin; Translations: [CEPHALEXIN] Drug Allergy 07-23-19 17 Itching [facility] (20 sources) clavulanic acid; Translations: [CLAVULANIC ACID] Drug Allergy 07-23-19 17 Itching [facility] (20 sources) levoFLOXacin; Translations: [LEVOFLOXACIN] Drug Allergy 07-23-19 17 Itching [facility] (20 sources) metroNIDAZOLE; Translations: [METRONIDAZOLE] Drug Allergy 07-23-19 17 Itching [facility] (20 sources) moxifloxacin; Translations: [MOXIFLOXACIN] Drug Allergy 12-21-19 04 Unknown (qualifier value), Intolerance [facility] (20 sources) pravastatin; Translations: [PRAVASTATIN SODIUM] Drug Allergy 06-15-19 10 Intolerance [facility] (20 sources) Sulfonamides (Antibiotic); Translations: [SULFA (SULFONAMIDE ANTIBIOTICS)] Propensity to adverse reactions to drug (disorder) 12-21-19 04 GI Upset [facility] (2 sources) OTHER; Translations: [OTHER] Propensity to adverse reactions (disorder) 12-20-19 07 AOF [facility] (20 sources) Acetaminophen / oxyCODONE; Translations: [acetaminophen-oxy codone] Drug Allergy Unknown (qualifier value) [facility] Other (1 source) Amoxicillin / Clavulanate Drug Allergy Unknown [facility] Other (20 sources) Sulfonamides (Antibiotic) Drug allergy Unknown [facility] Other (20 sources) Pepper Drug allergy Unknown [facility] Other (5 sources) Sulfonamides (Antibiotic); Translations: [sulfa drugs] Drug allergy Unknown (qualifier value) [facility] (5 sources) Peppers; Translations: [Peppers] Food allergy Unknown (qualifier value) [facility] (18 sources) hot peppers [Other] Propensity to adverse reactions 12-20-19 07 Itching [facility] Work Phone: (2 sources) oxyCODONE Drug Allergy 02-20-20 17 Unknown Reaction [facility] Work Phone: (15 sources) Sulfonamides (Antibiotic) Propensity to adverse reactions to drug 06-09-19 15 Unknown [facility] Work Phone: (2 sources) Acetaminophen / oxyCODONE Drug Allergy 03-24-20 14 [facility] (1 source) Amoxicillin Drug Allergy [facility] (2 sources) Ciprofloxacin Drug Allergy 10-23-19 17 [facility] (3 sources) moxifloxacin; Translations: [Avelox] Drug Allergy 03-24-20 14 [facility] (2 sources) Sulfonamides (Antibiotic) Drug allergy (disorder) 03-24-20 14 [facility] (20 sources) Amoxicillin-Pot Clavulanate Drug allergy Unknown [facility] Other (13 sources) Amoxicillin Drug Allergy Unknown [facility] Other (15 sources) metFORMIN Drug Allergy 09-03-19 Unknown, Unknown Reaction [facility] (14 sources) Pseudoephedrine Drug Allergy Unknown [facility] [employer] Other (15 sources) sulfADIAZINE Drug Allergy 09-03-19 24 Comment:Sulfa [facility] (14 sources) Avelox *FLUOROQUINOLONES* Propensity to adverse reactions Unknown [facility] Other (1 source) Acetaminophen / oxyCODONE; Translations: [Percocet ] Drug Allergy [facility] Rep[facility] (1 source) Acetaminophen Drug Allergy 09-03-19 Unknown Reaction [facility] (1 source) pepper (genus Capsicum) Allergy to substance 09-03-19 Unknown Reaction [facility] Medications Current Medications Medication Drug Class(es) Dates Sig (Normalized) Sig (Original) amoxicillin 500 mg oral capsule (4 sources) Penicillin-class Antibacterial Start: 05-10-2023 take 1 capsule by mouth every twelve hours Amoxicillin 500 MG 1 capsule Orally Twice a day for 7 days Apr, Active ascorbic acid 500 mg extended release oral capsule (1 source) Vitamin C Start: 07-04-2023 take 500 mg by mouth once daily Ascorbic Acid (Vitamin C) Active 500 MG PO Daily July 04, 2023 1:00am azithromycin 250 mg oral tablet (3 sources) Macrolide Antimicrobial Start: 09-03-2023 Azithromycin Active 250 MG PO daily 6 September 03, 2023 12:00am Take 2 today and then 1 for the next 4 days Start: 01-03-2023 Azithromycin 2 50 MG as directed Orally daily for 5 days Dec, Active b complex vitamins capsule (1 source) take 1 capsule by mouth once daily b complex vitamins capsule Take 1 capsule by mouth daily 0 Active B-Complex SR (4 sources) Start: 02-17-2019 take 1 tablet by mouth once daily B-Complex SR tab(s), Oral, Daily, Refill(s) 0 Start Date: 02/17/19 Status: Ordered Blood-Glucose Meter (True Metrix Glucose Meter) [facility] (1 source) Start: 07-03-2023 Blood-Glucose Meter (True Metrix Glucose Meter) misc Active 0 .Route July 03, 2023 1:00am to test blood sugar busPIRone hydrochloride 15 mg oral tablet (20 sources) Start: 02-17-2019 busPIRone Oral, BID, Refills(s) 0 Start Date: 02/17/19 Status: Ordered Start: 10-06-2018 take 15 mg by mouth twice stevenson y Buspirone Active 15 MG PO Twice daily July 04, 2023 1:00am BuSpar 15 mg BID Active Comment on above: Take 1 tablet by jigna th twice daily. cephalexin 500 mg oral capsule (10 sources) Cephalosporin Antibacterial Start: 04-17-2023 End: 04-27-2023 take 1 capsule by mouth twice daily Keflex 500 mg Cap 500 mg = 1 cap(s), Oral, BID, X 10 day(s), # 20 cap(s), Refills(s) 0, Pharmacy: [facility]/pharmacy #[id number], 170, cm, 04/17/23 9:22:00 EST, Height/Length Dosing, 113.9, kg, 04/17/23 9:22:00 EST, Weight Dosing Start Date: 04/17/23 Stop Date: 04/27/23 Status: Ordered Start: 02-20-2023 take 1 tablet by jigna twice daily Cephalexin 500 MG 1 tablet Orally bid w/ food for 5 days Feb, Active chlorthalidone 25 mg oral tablet (4 sources) Thiazide-like Diuretic Start: 04-17-2023 take 1 tablet by mouth once daily chlorthalidone 25 mg Tab 25 mg = 1 tab(s), Oral, Daily, # 30 tab(s), Refills(s) 6, Pharmacy: [facility]/pharmacy #[id number], 170, cm, 04/17/23 9:22:00 EST, Height/Length Dosing, 113.9, kg, 04/17/23 9:22:00 EST, Weight Dosing Start Date: 04/17/23 Status: Ordered Start: 04-23-2021 End: 04-18-2022 take 0.5 tablet by mouth once daily chlorthalidone 25 mg Tab half tab, Oral, Daily, X 30 day(s), # 15 tab(s), Refills(s) 11, Pharmacy: [facility]/pharmacy #[id number], 170, cm, 09/18/20 14:12:00 EDT, Height/Length Dosing, 113, kg, 09/18/20 14:12:00 EDT, Weight Dosing Start Date: 04/23/21 Stop Date: 04/18/22 Status: Ordered cholecalciferol 0.025 mg oral capsule (20 sources) Vitamin D Start: 07-04-2023 take 25 ug by mouth once daily Cholecalciferol (Vitamin D3) Active 25 MCG PO Daily July 04, 2023 1:00am Cholecalciferol, Vitamin D3, 10,000 unit cap Take by mouth once daily. 0 Active Cholecalciferol (VITAMIN D) 2000 units CAPS capsule Take by mouth 0 Active Comment on above: Take by mouth once d aily. cinnamon bark 500 mg oral capsule (20 sources) Start: 07-04-2023 take 1 capsule by mouth once daily Cinnamon Bark (Cinnamon) 500 mg capsule Active 500 MG PO Daily July 04, 2023 1:00am take 2 capsules by mouth once da edgardo Cinnamon Bark 500 mg cap Take 2 capsules by mouth once daily. 0 Active Comment on above: Take 2 capsules by m outh once daily. Cinnamon Preparation (20 sources) Non-Standardized Food Allergenic [...] twice daily for 10 days Jun, Active famotidine 10 mg oral tablet (2 sources) Histamine-2 Receptor Antagonist Start: 07-04-2023 take 10 mg by mouth twice daily Famotidine Active 10 MG PO Twice daily July 04, 2023 1:00am take 1 tablet by mouth every twe lve hours Pepcid AC 10 MG 1 tablet as needed Orally Twice a day Active [employer] Gummies (20 sources) Hair Skin & Nail s Gummies Active hydrocortisone 25 mg/ml topical cream (20 sources) Corticosteroid Start: 07-04-2023 Hydrocortisone (Anusol-Hc) 2.5 % cream with perineal applicator Active 1 APPLIC TOPICAL Twice daily July 04, 2023 1:00am Start: 10-09-2021 Anusol-HC 2.5 % 1 application Externally Twice a day for 14 days September, Active Start: 10-09-2021 Anusol-HC 2.5 % 1 application Externally Twice a day for 14 days September, Active [id number] (CEREFOLIN PO) (1 source) M-Fhgtlgawtght-[id number] 12-B6-B2 (CEREFOLIN PO) Take by mouth daily 0 Active levothyroxine sodium 0.112 m g oral tablet (20 sources) l-Thyro xine Start: 2023 take 112 ug by mouth once daily Levothyroxine Active 112 MCG PO Daily July 04, 2023 1:00am Start: 02-17-2019 Synthroid Oral , Daily, Refills(s) 0 Start Date: 02/17/19 Status: [...] tablet by jigna th daily before breakfast. Multivitamin With Minerals (Hair,Skin And Nails) tablet (1 source) Start: 07-04-19 take 1 tablet by mouth once daily Multivitamin With Minerals (Hair,Skin And Nails) tablet Active 1 TAB PO Daily July 04, 2023 1:00am nitrofurantoin, macrocrystals 25 mg / nitrofurantoin, monohydrate 75 mg oral capsule (6 sources) Nitrofuran Antibacterial Start: 05-03-20 take 1 capsule by mouth every twelve hours Macrobid 100 MG 1 cap(s) Orally bid for 5 day(s) Apr, Active nortriptyline 10 mg oral capsule (20 sources) Tricyclic Antidepressant Start: 08-22-19 24 End: 02-18-20 24 take 1 capsule by mouth twice daily nortriptyline (PAMELOR) 10 mg capsule Take 1 capsule by mouth two times a day. 180 capsule 2 08/22/2023 02/18/2024 Active Start: 11-25-2022 End: 11-02-2023 take 10 mg by mouth once daily Nortriptyline Active 10 MG PO Daily July 04, 2023 1:00am Start: 08-20-2022 End: 11-18-2022 take 1 capsule by mouth once daily at bedtime nortriptyline (PAMELOR) 10 mg capsule Take 1 capsule by mouth daily at bedtime. 90 capsule 0 10/17/2022 Active Comment on above: Take 1 capsule by mo uth daily at bedtime. Take 1 capsule by mo uth two times a day. [place]-3 Fatty Acids (FISH OIL PO) (1 source) [place]-3 Fatty Ac ids (FISH OIL PO) Take by mouth 0 Active pantoprazole (20 sources) Proton Pump Inhibitor Start: 02-17-2019 pantoprazole Daily, Refills(s) 0 Start Date: 02/17/19 Status: Ordered take 1 tablet by mouth once stevenson y pantoprazole DR (PROTONIX) 40 mg tablet Take 40 mg by mouth once daily. 0 Active Comment on above: Take 40 mg by mouth once daily. phenazopyridine hydrochloride 200 mg oral tablet (6 sources) Start: 3 take 1 tablet by mouth every eight hours Pyridium 200 MG 1 tablet after meals Orally Three times a day for 2 day(s) Apr, Active Probiotic Product (ALIGN PO) (1 source) Probiotic Produc t (ALIGN PO) Take by mouth 0 Active propranolol hydrochloride 20 mg oral tablet (20 sources) beta-Adrenergic Claudia Start: 4 take 20 mg by mouth four times daily Propranolol Active 20 MG PO Four times daily July 04, 2023 1:00am Start: 02-17-2019 propranolol Re fills(s) 0 Start Date: 02/17/19 Status: Ordered Start: 06-22-2018 End: 02-18-2024 take 1 tablet by mouth four times daily propranolol (INDERAL) 10 mg tablet Take 1 tablet by mouth four times daily. 360 tablet 1 03/04/2023 08/22/2023 Discontinued take 1 tablet by jigna th every six hours Propranolol HCl 20 MG 1 tablet Orally qid Active take 1 tablet by jgina th every twelve hours Propranolol HCl 20 MG 1 tablet Orally BID Active Comment on above: Take 1 tablet by jigna th four times daily. 24 hr tolterodine tartrate 2 mg extended release oral capsule (1 source) Cholinergic Muscarinic Antagonist Start: 4 take 2 mg by mouth once daily Tolterodine Active 2 MG PO Daily 14 July 22, 2023 12:00am turmeric extract 450 mg oral capsule (1 source) Turmeric 450 MG CAPS Take by mouth 0 Active Vitamin B Complex (20 sources) Start: 4 take 1 tablet by mouth once daily Vitamin B Complex Active 1 TAB PO Daily July 04, 2023 1:00am take 1 capsule by mouth once kwadwo ly VITAMIN B COMPLEX (B COMPLEX-100 ORAL) Take 1 capsule by mouth once daily. Patient denies taking this any longer 0 Active Vitamin B Comple x Active Comment on above: Take 1 capsule by [facility] once daily. Patient denies taking this any longer Vitamin D (20 sources) Vitamin D Active Completed/Discontinued Medications Medication Drug Class(es) Dates Sig (Normalized) Sig (Original) acetaminophen 500 mg / caffeine 65 mg oral tablet (19 sources) Central Nervous System Stimulant, Methylxanthine take 2 tablets by mouth twice daily, then take 2 tablets by mouth in the morning, then take 1 tablet by mouth after lunch Acetaminophen-Caffe ine (TENSION HEADACHE PAIN RELIEVER) 500-65 mg tab Take 2 tablets by mouth twice daily. 2 tablets in am, 1 tablet after lunch 0 Active Comment on above: Take 2 tablets by [facility] twice daily. 2 tablets in am, 1 tablet after lunch ascorbic acid 100 mg / d-biotin 0.3 mg / folic acid 1 mg / niacinamide 20 mg / pantothenic acid 10 mg / pyridoxine hydrochloride 10 mg / riboflavin 1.7 mg / thiamine 1.5 mg / vitamin b12 0.006 mg oral tablet (19 sources) Vitamin B12, Vitamin C vit B complx-folic ac-C-biotin 1 mg-100 mg- 300 mcg tab Take by mouth. 0 Active Comment on above: Take by mouth. cyclobenzaprine hydrochloride 10 mg oral tablet (2 sources) Muscle Relaxant Start: 01-24-2021 End: 01-24-2022 take 1 tablet by mouth three times daily as needed for pain cyclobenzaprine (FLEXERIL) 10 mg tablet Indications: Myalgia Take 1 tablet by mouth three times daily as needed for pain. 270 tablet 1 01/24/2021 01/24/2022 Discontinued (Discontinued by Patient) Comment on above: Take 1 tablet by jigna th three times daily as needed for pain. 24 hr loratadine 10 mg / pseudoephedrine sulfate 240 mg extended release oral tablet (19 sources) alpha-Adrenergic Agonist take 1 tablet by mouth once daily loratadine-pseudoep hedrine ER (CLARITIN-D 24) 10-240 mg Tb24 Take 1 tablet by mouth once daily. 0 Active Comment on above: Take 1 tablet by jigna th once daily. vitamin e 268 mg oral capsule (20 sources) Vitamin E, dl, acetate, (VITAMIN E) 400 unit capsule Take 400 Units by mouth as needed. 0 Active Vitamin E, dl, a cetate, (VITAMIN E) 400 unit capsule Take 400 Units by mouth as needed. 0 Active Vitamin E Active Comment on above: Take 400 Units by mo uth as needed. Problems Active Problems Problem Classification Problem Date Documented Da te Episodic/Chronic Abdominal pain (20 sources) Abdominal pain; Translations: [Unspecified abdominal pain] Episodic Anxiety disorders (20 sources) Anxiety; Translations: [Anxiety disorder, unspecified] Onset: 3 02-17-2019 Chronic Calculus of urinary tract (10 sources) Kidney stone; Translations: [Calculus of kidney] Onset: 2 Episodic Conditions associated with dizziness or vertigo (9 sources) Dizziness; Translations: [Dizziness and giddiness] Onset: 3 Episodic Conduction disorders (20 sources) Mobitz type II atrioventricular block; Translations: [...] [Essential (primary) hypertension] Onset: 5 02-17-2019 Chronic Fluid and electrolyte disorders (1 source) Hypo-osmolality and hyponatremia Episodic Genitourinary symptoms and ill-defined conditions (9 sources) [...] (20 sources) Nausea; Translations: [Nausea] Episodic Osteoarthritis (20 sources) Osteoarthritis; Translations: [Osteoarthrosis, unspecified whether generalized or localized, lower leg] Onset: 1 05-29-2010 Chronic Other aftercare (1 source) Other prison (current) drug therapy; Translations: [OTH [facility] CURRENT DRUG THERAPY] Onset: 3 Episodic Other connective tissue disease (19 sources) History of total knee arthroplasty; Translations: [Presence of unspecified artificial knee joint] Onset: 1 02-05-2011 Chronic Other connective tissue disease (1 source) Presence of right artificial knee joint; Translations: [PRESENCE RT ARTIFICIAL KNEE JOINT] Onset: 3 Chronic Other ear and sense organ disorders (19 sources) Sensorineural hearing loss; Translations: [Unspecified sensorineural [...] Other hereditary and degenerative nervous system conditions (4 sources) Essential tremor; Translations: [Essential tremor] Onset: 7 Chronic Other nervous system disorders (19 sources) Carpal tunnel syndrome of right wrist; Translations: [Carpal tunnel syndrome, right upper limb] Onset: 1 05-30-2020 Chronic Other nervous system disorders (1 source) Polyneuropathy; Translations: [Polyneuropathy, unspecified] Onset: 7 02-20-2017 Chronic Other nervous system disorders (1 source) Neuropathy; Translations: [Polyneuropathy, unspecified] 08-22-2023 Chronic Other nervous system disorders (20 sources) [...] Chronic Other nutritional; endocrine; and metabolic disorders (12 sources) Severe obesity; Translations: [Morbid (severe) obesity due to excess calories] Chronic Other nutritional; endocrine; and metabolic disorders (1 source) Morbid (severe) obesity due to excess calories Chronic Other nutritional; endocrine; and metabolic disorders (1 source) Body mass index (BMI) 36.0-36.9, adult Chronic Other nutritional; endocrine; and metabolic disorders (1 source) Obesity; Translations: [Obesity, unspecified] 07-08-2023 Chronic Other nutritional; endocrine; and metabolic disorders (1 source) Obesity, unspecified; Translations: [Obesity, unspecified] 07-08-2023 Chronic Other nutritional; endocrine; and metabolic disorders [...] Date Documented Da te Episodic/Chronic Cardiac dysrhythmias (19 sources) Bradycardia; Translations: [Bradycardia, unspecified] Onset: 02-26-2015 07-03-2016 Episodic Hemorrhoids (1 source) Unspecified hemorrhoids Onset: 10-09-2021 Resolved: 10-09-2021 Episodic Other lower respiratory disease (1 source) Solitary pulmonary nodule; Translations: [Solitary pulmonary nodule] Onset: 07-14-2017 Episodic Other lower respiratory disease (19 sources) Dyspnea on exertion; Translations: [Other forms of dyspnea] Onset: 02-26-2015 02-26-2015 Episodic Pulmonary heart disease (19 sources) Pulmonary embolism; Translations: [Other pulmonary embolism without acute cor pulmonale] Onset: 03-02-2015 03-02-2015 Episodic Results Test Name Value Interpretation Reference Range Facility CNOVon 08-22-2023 CNOV Office Visit (NEURAV ) RUFINO COLLINS ([id number]) 1940 F Date Time Provider Department 08/22/23 2:20 PM RACHID ODELL During your visit today, we recorded the following information about you: Pulse Blood pressure 78/minute 143/76 Alycia García LPN 08/22/2023 2:57 PM Signed 02/19/2023 PROMIS [facility] Physical Health Summary Physical health: Everyday physical activity, ability: Fatigue: Pain level: General health: Good Social activities/roles, ability: Physical Health T-Score Physical Health Percentile No data recorded PROMIS [facility] Mental Health Summary Quality of life: Good Mental health (mood,thinking): Social satisfaction: Emotional problems (anxious,depressed): Mental Health T-Score Mental Health Percentile No data recorded Percentiles provide an indication of how a patient's score ranks in relation to the [place] general population. > 31st percentile is within normal limits or better *< 31st percentile is at least ? SD worse than population, which may be clinically relevant < 16th percentile is at least 1 SD worse than population and warrants attention Rachid Odell MD 08/22/2023 2:57 PM Signed NEUROLOGY PROGRESS NOTE Rufino Collins is a 83 year old female. Who has a history of tremors comes in for follow up. Interval History Rufino Collins is a 83 year old female, with a history of [...] feet sometimes difficulty with balance. Patient doing well since last seen tremors are under control. She states that sometimes in the evening she has this pain in her feet. Will increase her nortriptyline to 20 mg a bedtime and see how she does. ACTIVE PROBLEM LIST Hearing Loss, Sensorineural, Unilateral [...] on File Prior to Visit Medication Sig propranolol (INDERAL) 10 mg tablet Take 1 tablet by mouth four times daily. Acetaminophen-Caffein e (TENSION HEADACHE PAIN RELIEVER) 500-65 [...] daily. Patient denies taking this any longer [DISCONTINUED] nortriptyline (PAMELOR) 10 mg capsule Take 1 capsule by mouth daily at bedtime. No current facility-administered medications on file prior to visit. Social History Tobacco Use Smoking status: Never Smokeless tobacco: Never Substance Use Topics Alcohol use: No Drug use: No family history includes Cancer in her mother; Diabetes in her mother; Heart in her mother; Hypertension in her mother; Lipids in her mother. GENERAL:No weight loss, malaise or fevers., SEE CAYLA ZAMUDIO (more content not included)... Normal [facility] Estimated glomerular filtrat ion rate (GFR) non- Americanon 07-08-2023 GFR/1.73 sq M.predicted among non-blacks MDRD (S/P/Bld) [Vol rate/Area] 53 mL/min/{1.73_m2} >=60 [facility] Glucose mean value [Mass/vol ume] in Blood Estimated from glycated hemoglobinon 07-08-2023 Average glucose Estimated from glycated hemoglobin (Bld) [Mass/Vol] 157 mg/dL [facility] Laboratory - Chemistry and C hemistry - challengeon 07-08-2023 Calcium [Mass/Vol] 9.7 mg/dL 8.5-10.1 [facility] Chloride [Moles/Vol] 101 mmol/L 98-107 [facility] CO2 [Moles/Vol] 31.6 mmol/L 21.0-32.0 [facility] Creatinine [Mass/Vol] 1.00 mg/dL 0.55-1.02 [facility] GFR/1.73 sq M.predicted MDRD (S/P/Bld) [Vol rate/Area] mL/min/{1.73_m2} >=60 [facility] Glucose [Mass/Vol] 141 mg/dL 74-106 [facility] Potassium [Moles/Vol] 4.2 mmol/L 3.5-5.1 [facility] Sodium [Moles/Vol] 140 mmol/L 136-145 [facility] Urea nitrogen [Mass/Vol] 28.0 mg/dL 7.0-18.0 [facility] Urea nitrogen/Creatinine [Mass ratio] 28.0 mg/mg [facility] Laboratory - Hematology and Cell countson 07-08-2023 HbA1c (Bld) [Mass fraction] 7.1 % 4.5-6.2 [facility] Comment on above: ADA RECOMMENDED LIMI T 4.0 - 6.0ADA THERAPEUTIC TARGET < 7.0ACTION SUGGESTED> 7.0 Serum or plasma anion gap de terminationon 07-08-2023 Anion gap [Moles/Vol] 11.6 mmol/L [facility] No Panel Informationon 07-06 BLANK _ [facility] ic Implant Date 02/27/2015 [facility] in Model [id number] Tendril STS [facility] [facility] PACEMAKER REMOTE CHECKon AV Delay Adaptive Paced Minimum (ms) 150 ms [facility] favian AV Delay Adaptive Sensed Minimum (ms) 130 ms [facility] in AV Delay Paced (ms) 100 ms [facility] AV Delay Sensed (ms) 100 ms [facility] Battery Voltage (volts) 2.87 V [facility] Dirk RA Pacing Amplitude (volts) 2.0 V [facility] Dirk RA Pacing Polarity BI [facility] Dirk RA Pacing Pulse Width (ms) 0.5 ms [facility] Dirk RA Sensing Amplitude (mvolts) 0.4 mV [facility] favian Dirk RA Sensing Polarity BI [facility] Dirk RV Pacing Amplitude (volts) 1.625 [facility] Dirk RV Pacing Polarity BI [facility] Dirk RV Pacing Pulse Width (ms) 0.5 ms [facility] Dirk RV Sensing Amplitude (mvolts) 2.0 mV [facility] favian Dirk RV Sensing Polarity BI [facility] Lead1 Mfg STJ [facility] ic Lead2 Mfg STJ [facility] ic Location RA [facility] Location RV [facility] Lower Rate (bpm) 60 {beats}/min [facility] Max Sensor Rate (bmp) 120 {beats}/min [facility] Model 2240 Assurity [facility] linic Pacing Mode DDD [facility] favian PM-Device Mfg STJ [facility]inic PM-Percent Pacing (A) 6.4 % [facility] PM-Percent Pacing (V) 99.0 % [facility] RA Bipolar Impedance ohms 450 ohm [facility] RV Bipolar Impedance ohms 890 ohm [facility] Serial Number [id number] [facility] Serial Number [id number] [facility] Serial Number [id number] [facility] Thresh RA Capture Amplitude (volts) 1.0 V [facility] ic Thresh RA Capture Duration (ms) 0.5 ms [facility] Thresh RA Sensing Amplitude (mvolts) 0.9 mV [facility] Thresh RV Capture Amplitude (volts) 1.375 V [facility] ic Thresh RV Capture Duration (ms) 0.5 ms [facility] Thresh RV Sensing Amplitude (mvolts) 12.0 mV [facility] favian Tracking Rate (bpm) 120 {beats}/min [facility] Urinalysis - AUTOMATEDon Appearance (U) cloudy [facility] ([facility]) Other Bilirubin Ql (U) Negative SHAPE Other Color (U) bright orange [facility] Other Glucose Ql (U) 100 [facility] ([facility]) Other Hemoglobin Ql (U) small [facility] Other Ketones Ql (U) Negative [facility] ([facility]) Other Leukocyte esterase Test strip Ql (U) large [facility] Other Nitrite Ql (U) Positive [facility] ([facility]) Other pH (U) 5.0 [pH] [facility] Other Protein Ql (U) 100 [facility] ([facility]) Other Specific gravity (U) [Rel density] >=1.030 [facility] Other Urobilinogen (U) [Mass/Vol] 1.0 mg/dL [facility] Other Urinalysis - AUTOMATED [facility] Other Urine Cultureon 05-03-2023 Urine Culture >100,000 [facility] Other Bacteria identified Cx Nom (U) Reason for Exam Dysuria Urine ORGANISM: Streptococcus anginosus (O:MECCA) [place] Count >100,000 Organism Comments Organism not Routinely Tested for Susceptibilities PERFORMED BY: [facility] [address] [place], [place] [id number] PATHOLOGIST PACKING ROOM INSPECTOR LAKSHMI ACEVES M.D. [facility] Comment on above: Performed By: #### C UU #### [facility] [address] Bacteria identified Cx Nom (U) [facility] Other Ambulatory Visit Summaryon 1 07-01-2022 Ambulatory Visit Summary RUFINO COLLINS :1940 Visit Date:04/30/2023 Ambulatory Visit Instructions Your Diagnosis Incomplete bladder emptying Your Care Team Attending Physician - CARMINA THOMAS PA-C Primary Care Physician - MANAV [...] you for choosing us for your care. Normal [facility] C Urineon 04-20-2023 Bacteria identified Cx Nom (U) Microbiology PROCEDURE: Urine Culture [R1] SOURCE: U CleanCatch BODY SITE: COLLECTED DATE/TIME: 04/17/2023 10:12 EST RECEIVED DATE/TIME: 04/17/2023 13:52 EST START DATE/TIME: 04/17/2023 13:52 EST FREE TEXT SOURCE: PEEWEE Luna APRN, PEEWEE Luna APRN, Roseann Whitfield X FINAL REPORTS Final Report [] Verified Date/Time: 04/20/2023 13:49 EST >100,000 cfu/ml Streptococcus anginosus group (Microaerophilic) Presumptive isolated. Therapeutic Options: Penicillin or ceftriaxone, with or without an aminoglycoside; vancomycin is used in cases of penicillin allergies and beta-lactam resistance. 2,000 cfu/ml Mixed skin contaminants Performing Locations R1: This test was performed at: [facility], [address] [place] [address], [facility]- , [place], [facility] Comment on above: Performed By: #### 2 [id number] #### [facility] [address] [place] [address] Ambulatory Visit Summaryon 1 06-18-2022 Ambulatory Visit Summary RUFINO COLLINS :1940 Visit Date:04/17/2023 Ambulatory Visit Instructions Your Diagnosis UTI symptoms Incomplete bladder emptying Kidney stone Tests Performed Urnls Dip Stick Auto w/o Microscopy POC [id number] Your Care Team Attending Physician - PEEWEE [...] [facility] Patient Educationon 04-17-20 Patient Education Nephrology Dietary Guidelines to [...] Spinach (cooked), rhubarb, beets, sweet potatoes, and Swedish chard. ? Peanuts. ? Potato chips, puerto rican fries, and baked potatoes with skin on. ? Nuts and nut products. ? Chocolate. ? If you regularly take a diuretic medicine, make sure to eat at least 1 or 2 servings of fruits or vegetables that are high in potassium each day. These include: ? Avocado. ? Banana. ? [place], prune, carrot, or tomato juice. ? Baked [...] fish oil, or vitamin B6. ? Take awmm-zct-vkvnogf and prescription medicines only as told by your health care provider. These include supplements. What foods sh (more content not included)... Normal [facility] Urology Office/Clinic Noteon 04-17-2023 Urology Office/Clinic Note [...] removal 10/24/16 KUB 11/20/21 and 11/19/22 at [facility] - negative Pt takes Chlorthalidone 25mg 1/2 tab 1-2 times week, rather than daily due to SEs. Tolerating 1/2 dose well. Continue. Denies any signs of stone passage. -Pt is to get KUB done prior to her 2 yr appt 11/2024. -Will send refills for Chlorthalidone 25mg to pharmacy on file. Follow-up With When Contact Information PEEWEE Luna APRN, Roseann Giron, RUDY, URL Additional Instructions: Pending sxs after abx course. Patient Education Dietary Guidelines to Help Prevent Kidney Stones I, Ofelia Dietrich, personally scribed for Roseann VIDES on 04/17/2023 10:09:31. . Documentation recorded by the scribe Ofelia Dietrich accurately reflects the services(s) I performed and decisions made by me. Authenticated by Roseann Luna APRN, FNP-C on 04/17/2023 10:13:37. Problem List/Past Medical History Ongoing Anxiety Depression Diabetes mellitus Diverticulosis Gastroesophageal reflux Hypertension Hypothyroidism Incomplete bladder emptying Kidney stone Leaking of urine M (more content not included)... 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 [id number] 04-16-2023 ECG01 Ventricular Rate : 8 0 BPM Atrial Rate : 80 BPM P-R Interval : 154 ms QRS Duration : 172 ms Q-T Interval : 416 ms QTC Calculation(Bazett) : 479 ms Calculated P [place] : 60 degrees Calculated R [place] : -89 degrees Calculated T [place] : 78 degrees ATRIAL-SENSED VENTRICULAR-PACED RHYTHM ABNORMAL ECG Confirmed by NATO ORONA MD ([id number]) on 04/17/2023 7:18:20 PM NAME : RUFINO COLLINS PID : [id number] : 1940 Gender : Female Race : [...] Niall Grewal Acquired by : , Normal [facility] No Panel Informationon 04-16 BLANK _ [facility] ic Implant Date 02/27/2015 [facility] inic Model 2088TC Tendril STS [facility] PACEMAKER CLINIC CHECKon AMS Fallback Rate (bpm) 70 {beats}/min [facility] AV Delay Adaptive Paced Minimum (ms) 150 ms [facility] favian AV Delay Adaptive Rate Maximum (bpm) 120 {beats}/min [facility] favian AV Delay Adaptive Rate Minimum (bpm) 90 {beats}/min [facility] favian AV Delay Adaptive Sensed Minimum (ms) 130 ms [facility] in AV Delay Adaptive Status Medium [facility] AV Delay Paced (ms) 100 ms [facility] AV Delay Sensed (ms) 100 ms [facility] Battery Voltage (volts) 2.89 V [facility] Dirk RA Pacing Amplitude (volts) 2.0 V [facility] Dirk RA Pacing Polarity BI [facility] Dirk RA Pacing Pulse Width (ms) 0.5 ms [facility] Dirk RA Sensing Blanking Period (ms) 150 ms [facility] Dirk RA Sensing Polarity BI [facility] Dirk RA Sensing Refractory Period (ms) 190 ms [facility] Dirk RV Pacing Amplitude (volts) 1.375 [facility] Dirk RV Pacing Polarity BI [facility] Dirk RV Pacing Pulse Width (ms) 0.5 ms [facility] Dirk RV Sensing Amplitude (mvolts) 2.0 mV [facility] Dirk RV Sensing Blanking Period (ms) 44 ms [facility] Dirk RV Sensing Polarity BI [facility] Dirk RV Sensing Refractory Period (ms) 250 ms [facility] Hysteresis Rate (bpm) Off [facility] Lead1 Mfg STJ [facility] Lead2 Mfg STJ [facility] ic Location RA [facility] Location RV [facility] Lower Rate (bpm) 60 {beats}/min [facility] Max Sensor Rate (bmp) 120 {beats}/min [facility] Model 2240 Assurity [facility] linic Pacemaker Dependent? YES [facility] Pacing Mode DDD [facility] favian PM-Device Mfg [facility] linic PM-Percent Pacing (A) 6.3 % [facility] PM-Percent Pacing (V) 99.96 % [facility] PM-PMT Intervention Atrial Pace [facility] PM-PVC Intervention Off [facility] PM-Rate Modulation Acceleration Reaction Fast [facility] PM-Rate Modulation Deceleration Medium [facility] PM-Rate Modulation [place] Auto (+2) [facility] PM-Rate Modulation Threshold Auto (+0.0) [facility] Rhythm Sinus rhythm with complete heart block [facility] Serial Number [id number] [facility] Serial Number [id number] [facility] Serial Number [id number] [facility] Thresh RA Capture Amplitude (volts) 1.0 V [facility] ic Thresh RA Capture Duration (ms) 0.5 ms [facility] Thresh RA Sensing Amplitude (mvolts) 0.7 mV [facility] Thresh RV Capture Amplitude (volts) 1.25 V [facility] ic Thresh RV Capture Duration (ms) 0.5 ms [facility] Thresh RV Sensing Amplitude (mvolts) 12.0 mV [facility] favian Tracking Rate (bpm) 120 {beats}/min [facility] Lab Reportson 04-15-2023 Lab Reports [id number] Normal [facility] UA RANDOM W/MICROSCOPICon Clarity (U) CLEAR CLEAR [facility] Other Color (U) DK. ORANGE YELLOW [facility] Other Ketones Ql (U) COLOR INTERFERENCE mg/dL Abnormal NEGATIVE mg/dL [facility] Other Leukocyte esterase Test strip Ql (U) COLOR INTERFERENCE Abnormal NEGATIVE [facility] Other UA RANDOM W/MICROSCOPIC 20-50 #/HPF Abnormal NONE SEEN #/HPF [facility] Other UA RANDOM W/MICROSCOPIC 5-10 #/HPF Abnormal 0-2 #/HPF [facility] Other UA RANDOM W/MICROSCOPIC see note [facility] Other UA RANDOM W/MICROSCOPIC 1.010 1.005-1.025 [facility] Other UA RANDOM W/MICROSCOPIC COLOR INTERFERENCE Abnormal NEGATIVE [facility] Other UA RANDOM W/MICROSCOPIC COLOR INTERFERENCE mg/dL Abnormal NEGATIVE mg/dL [facility] Other UA RANDOM W/MICROSCOPIC COLOR INTERFERENCE EU/dL Abnormal 0.2-1.0 EU/dL [facility] Other UA RANDOM W/MICROSCOPIC SMALL #/HPF Abnormal NONE SEEN #/HPF [facility] Other UA RANDOM W/MICROSCOPIC NONE SEEN NONE SEEN [facility] Other UA RANDOM W/MICROSCOPIC FEW #/LPF Abnormal NONE/RARE #/LPF [facility] Other UA RANDOM W/MICROSCOPIC Seen #/HPF Abnormal None Seen #/HPF [facility] Other UA RANDOM W/MICROSCOPIC NONE SEEN #/LPF NONE SEEN #/LPF [facility] Other UA RANDOM W/MICROSCOPIC RARE [facility] Other UA RANDOM W/MICROSCOPIC ALREADY ORDERED [facility] Other No Panel Informationon 04-05 [facility]ANK [facility]2015 [facility] in Model 2088TC Tendril STS [facility] PACEMAKER REMOTE CHECKon AV Delay Adaptive Paced Minimum (ms) 150 ms [facility] favian AV Delay Adaptive Sensed Minimum (ms) 130 ms [facility] in AV Delay Paced (ms) 100 ms [facility] AV Delay Sensed (ms) 100 ms [facility] Battery Voltage (volts) 2.89 V [facility] Dirk RA Pacing Amplitude (volts) 1.875 [facility] ic Dirk RA Pacing Polarity BI [facility] Dirk RA Pacing Pulse Width (ms) 0.5 ms [facility] Dirk RA Sensing Amplitude (mvolts) 0.4 mV [facility] Dirk RA Sensing Polarity BI [facility] Dirk RV Pacing Amplitude (volts) 1.375 [facility] ic Dirk RV Pacing Polarity BI [facility] Dirk RV Pacing Pulse Width (ms) 0.5 ms [facility] Dirk RV Sensing Amplitude (mvolts) 2.0 mV [facility] favian Dirk RV Sensing Polarity BI [facility] Lead1 Mfg STJ [facility] ic Lead2 Mfg ST[facility] Location RA [facility] ic Location RV [facility] Lower Rate (bpm) 60 {beats}/min [facility] Max Sensor Rate (bmp) 120 {beats}/min [facility] Model 2240 Assurity [facility] lin Pacing Mode DDD [facility] favian PM-Device Mfg STJ [facility] PM-Percent Pacing (A) 7.7 % [facility] PM-Percent Pacing (V) 99.0 % [facility] RA Bipolar Impedance ohms 480 ohm [facility] RV Bipolar Impedance ohms 930 ohm [facility] Serial Number [id number] [facility] Serial Number [id number] [facility] Serial Number [id number] [facility] Thresh RA Capture Amplitude (volts) 0.875 V [facility] ic Thresh RA Capture Duration (ms) 0.5 ms [facility] Thresh RA Sensing Amplitude (mvolts) 0.5 mV [facility] Thresh RV Capture Amplitude (volts) 1.125 V [facility] ic Thresh RV Capture Duration (ms) 0.5 ms [facility] Thresh RV Sensing Amplitude (mvolts) 12.0 mV [facility] favian Tracking Rate (bpm) 120 {beats}/min [facility] Urinalysis - DIPSTICKon 10-1 Appearance (U) clear [facility] ([facility]) Other Bilirubin Ql (U) Negative SHAPE Other Color (U) yellow [facility] Other Glucose Ql (U) Negative [facility] ([facility]) Other Hemoglobin Ql (U) Negative [facility] Other Ketones Ql (U) Negative [facility] ([facility]) Other Leukocyte esterase Test strip Ql (U) + [facility] Other Nitrite Ql (U) Negative [facility] ([facility]) Other pH (U) 5.0 [pH] [facility] Other Protein Ql (U) Negative [facility] ([facility]) Other Specific gravity (U) [Rel density] 1.015 [facility] Other Urobilinogen (U) [Mass/Vol] off chart [facility] Other Urinalysis - DIPSTICK [facility] Other CNPNon 02-06-2023 [facility] ([facility] RUFINO MENA ([id number]) 1940 F Date Time Provider Department 02/06/23 TAMRA GREWAL During your visit today, we [...] GI Upset Date Reviewed: 08/20/2022 Reviewed by: Alycia García LPN - Fully Assessed Reason for Visit: Patient Update [1234] Appointment [186] Cmt: Patient miss a phone call from [facility] and would like to reschedul her remote check. 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 PACEMAKER REMOTE CHECKon AV Delay Adaptive Paced Minimum (ms) 150 ms [facility]ian AV Delay Adaptive Sensed Minimum (ms) 130 ms [facility] in AV Delay Paced (ms) 100 ms [facility] AV Delay Sensed (ms) 100 ms [facility] Battery Voltage (volts) 2.9 V [facility] Dirk RA Pacing Amplitude (volts) 2.0 V [facility] Dirk RA Pacing Polarity BI [facility] Dirk RA Pacing Pulse Width (ms) 0.5 ms [facility] Dirk RA Sensing Amplitude (mvolts) 0.4 mV [facility] Dirk RA Sensing Polarity BI [facility] Dirk RV Pacing Amplitude (volts) 1.75 V [facility] Dirk RV Pacing Polarity BI [facility] Dirk RV Pacing Pulse Width (ms) 0.5 ms [facility] Dirk RV Sensing Amplitude (mvolts) 2.0 mV [facility] Dirk RV Sensing Polarity BI [facility] Lead1 Mfg STJ [facility] ic Lead2 Mfg STJ [facility] ic Location RA [facility] Location RV [facility] Lower Rate (bpm) 60 {beats}/min [facility] Max Sensor Rate (bmp) 120 {beats}/min [facility] Model 2240 [employer]urity [facility] lin Pacing Mode DDD [facility]ian PM-Device Mfg STJ [facility] PM-Percent Pacing (A) 5.8 % [facility] PM-Percent Pacing (V) 99.0 % [facility] RA Bipolar Impedance ohms 460 ohm [facility] RV Bipolar Impedance ohms 940 ohm [facility] Serial Number [id number] [facility] Serial Number [id number] [facility] Serial Number [id number] [facility] Thresh RA Capture Amplitude (volts) 1.0 V [facility] ic Thresh RA Capture Duration (ms) 0.5 ms [facility] Thresh RA Sensing Amplitude (mvolts) 1.5 mV [facility] Thresh RV Capture Amplitude (volts) 1.5 V [facility] Thresh RV Capture Duration (ms) 0.5 ms [facility] Thresh RV Sensing Amplitude (mvolts) 12.0 mV [facility] Tracking Rate (bpm) 120 {beats}/min [facility] No Panel Informationon 01-22 BLANK _ [facility] ic Implant Date 02/27/2015 [facility] in Model 2088TC Tendril STS [facility] PACEMAKER REMOTE CHECKon AV Delay Adaptive Paced Minimum (ms) 150 ms [facility] AV Delay Adaptive Sensed Minimum (ms) [address] [facility] AV Delay Paced (ms) 100 ms [facility] AV Delay Sensed (ms) 100 ms [facility] Battery Voltage (volts) 2.9 V [facility] Dirk RA Pacing Amplitude (volts) 2.0 V [facility] Dirk RA Pacing Polarity BI [facility] Dirk RA Pacing Pulse Width (ms) 0.5 ms [facility] Dirk RA Sensing Amplitude (mvolts) 0.4 mV [facility] Dirk RA Sensing Polarity BI [facility] Dirk RV Pacing Amplitude (volts) 1.625 [facility] Dirk RV Pacing Polarity BI [facility] Dirk RV Pacing Pulse Width (ms) 0.5 ms [facility] Dirk RV Sensing Amplitude (mvolts) 2.0 mV [facility] Dirk RV Sensing Polarity BI [facility] Lead1 Mfg STJ [facility] Lead2 Mfg [facility] Location RA [facility] Location RV [facility] Lower Rate (bpm) 60 {beats}/min [facility] Max Sensor Rate (bmp) 120 {beats}/min [facility] Model 2240 [employer]urity [facility] lin Pacing Mode DDD [facility]ian PM-Device Mfg STJ [facility] PM-Percent Pacing (A) 5.4 % [facility] PM-Percent Pacing (V) 99.0 % [facility] RA Bipolar Impedance ohms 460 ohm [facility] RV Bipolar Impedance ohms 860 ohm [facility] Serial Number [id number] [facility] [id number] [facility] [id number] [facility] Thresh RA Capture Amplitude (volts) 1.0 V [facility] Thresh RA Capture Duration (ms) 0.5 ms [facility] Thresh RA Sensing Amplitude (mvolts) 0.7 mV [facility] Thresh RV Capture Amplitude (volts) 1.375 V [facility] ic Thresh RV Capture Duration (ms) 0.5 ms [facility] Thresh RV Sensing Amplitude (mvolts) 12.0 mV [facility] favian Tracking Rate (bpm) 120 {beats}/min [facility] Patient Educationon 11-26-19 Patient Education Nephrology Dietary Guidelines to Help [...] Spinach (cooked), rhubarb, beets, sweet potatoes, and Swedish chard. ? Peanuts. ? Potato chips, puerto rican fries, and baked potatoes with skin on. ? Nuts and nut products. ? Chocolate. ? If you regularly take a diuretic medicine, make sure to eat at least 1 or 2 servings of fruits or vegetables that are high in potassium each day. These include: ? Avocado. ? Banana. ? [place], prune, carrot, or tomato juice. ? Baked [...] fish oil, or vitamin B6. ? Take pzvp-hqz-stiblwz and prescription medicines only as told by your health care provider. These include supplements. What foods should I limit? Limit your in (more content not included)... Normal [facility] Reminderson 11-25-2022 Reminders - From: Lidia Smith To: ANGI Carlton; Sent: 11/25/2022 14:28:14 EDT Show up: 09/25/2024 14:27:00 EDT Subject: KUB Reminder Message Please Remember to:_have pt get KUB prior to next appt (follow up in 2 years from 11/25/22). Normal [facility] Urology Office/Clinic Noteon 11-25-2022 Urology Office/Clinic [...] removal 10/2016 [facility] 11/20/21 and 11/19/22 at [facility] - negative Pt takes Chlorthalidone 25mg 1/2 [...] URL [facility] [address], [place] [address] [id number] Additional Instructions: 2 years with [facility] Patient Education Dietary Guidelines to Help Prevent Kidney Stones ILidia, personally scribed for Dr. Carlton on 11/25/2022 [...] Nitrite Urine Dipstick: Negative (11/25/22 13:15:00) Specific Rougon Urine Dipstick: 1.015 (11/25/22 13:15:00) Urine Appearance Urine Dipstick: Clear (11/25/22 13:15:00) Urine Color Urine Dipstick: Yellow (11/25/22 13:15:00) Urobilinogen Urine Dipstick: Normal 0.2-1 EU/dl (11/25/22 13:15:00) pH Urine Dipstick: 6 (11/25/22 (more content not included)... [facility] Comment on above: Result Comment: Elec tronically Signed By: Natalie CARLTON MD\.br\Date and Time Signed: 11/25/22 14:28 EDT\.br\Electronically Co-Signed By: Lidia Smith\.br\Date and Time Co-Signed: 11/25/22 14:27 EDT RAD - MISCon 11-22-2022 RAD - MISC [id number] .[id number]:127 [facility] RAD - MIS [id number] .[id number]:127 [facility] 10-17-2022 [facility] Telephone (NEURAV) RUFINO COLLINS ([id number]) 1940 F Date Time Provider Department 10/17/22 RACHID ODELL During your visit today, we recorded the following information about you: Evelio Castillo 10/17/2022 11:23 AM Signed Rufino Collins called today. : 1940 Allergies: Moxifloxacin, Percocet [Oxycodone-Acetaminop hen], Capsaicin, Pravachol [Pravastatin Sodium], Cephalexin, Clavulanic Acid, Flagyl [Metronidazole], Hot Peppers [Other], Levofloxacin, and Sulfa (Sulfonamide Antibiotics) (home) [phone] (cell) Reason for call: Patient says that she is doing well on the Nortriptyline 10 MG and is requesting that a 90 day prescription be sent over to her pharmacy. [facility]. She says that she is picking up the last of her 30 day supply today. She would like a call on her home phone if this can be sent in and/or if there is any questions. Patient last appointment: 08/20/2022 The patients preferred pharmacy has been captured for this encounter? Yes E- [id number] [place] [address] - [address] 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 No Panel Informationon 10-09 BLANK _ [place] [facility] Implant Date 02/27/2015 [facility] inic Model 2088TC Tendril [facility] PACEMAKER REMOTE CHECKon AV Delay Adaptive Paced Minimum (ms) 150 ms [facility] favian AV Delay Adaptive Sensed Minimum (ms) [address] [facility] AV Delay Paced (ms) 100 ms [facility] AV Delay Sensed (ms) 100 ms [facility] Battery Voltage (volts) 2.9 V [facility] Dirk RA Pacing Amplitude (volts) 2.0 V [facility] Dirk RA Pacing Polarity BI [facility] Dirk RA Pacing Pulse Width (ms) 0.5 ms [facility] Dirk RA Sensing Amplitude (mvolts) 0.4 mV [facility] favian Dirk RA Sensing Polarity BI [facility] Dirk RV Pacing Amplitude (volts) 1.5 V [facility] Dirk RV Pacing Polarity BI [facility] Dirk RV Pacing Pulse Width (ms) 0.5 ms [facility] Dirk RV Sensing Amplitude (mvolts) 2.0 mV [facility] favian Dirk RV Sensing Polarity BI [facility] Lead1 Mfg STJ [facility] Lead2 Mfg STJ [facility] Location RA [facility] Location RV [facility] Lower Rate (bpm) 60 {beats}/min [facility] Max Sensor Rate (bmp) 120 {beats}/min [facility] Model 2240 Assurity [facility] Pacing Mode DDD [facility] PM-Device Mfg STJ [facility] PM-Percent Pacing (A) 5.1 % [facility] PM-Percent Pacing (V) 99.0 % [facility] RA Bipolar Impedance ohms 460 ohm [facility] RV Bipolar Impedance ohms 860 ohm [facility] Serial Number [id number] [id number] [facility] [id number] [facility] Thresh RA Capture Amplitude (volts) 1.0 V [facility] ic Thresh RA Capture Duration (ms) 0.5 ms [facility] Thresh RA Sensing Amplitude (mvolts) 0.5 mV [facility] favian Thresh RV Capture Amplitude (volts) 1.25 V [facility] ic Thresh RV Capture Duration (ms) 0.5 ms [facility] Thresh RV Sensing Amplitude (mvolts) 12.0 mV [facility] favian Tracking Rate (bpm) 120 {beats}/min [facility] APTTon 07-12-2022 aPTT Coag (Bld) [Time] 29.9 s [facility] Comment on above: Effective 03/15/2020: Heparin Therapeutic Range: 64.0 98.0 seconds. Brain Natriuretic Peptideon 07-12-2022 Natriuretic peptide B (Bld) [Mass/Vol] 265 pg/mL [facility] Comment on above: NT-pro BNP ACUTE Int [...] pulmonary emboli, pulmonary hypertension, pericarditis Reference: Dharmesh Hoyt et al. NT-proBNP testing for diagnosis and short-term prognosis in acute destabilized HF: an international pooled analysis of 1256 patients. Heart Journal. 2006;27:330-337 CBC With Platelet and Differ entialon 07-12-2022 Basophils (Bld) [#/Vol] 0.1 10*3/uL Normal 0.0-0.2 [facility] Comment on above: Performed By: #### C BCWD #### [facility] [address] [place] [address] Basophils/100 WBC (Bld) 1.3 % Normal [facility] Comment on above: Performed By: #### C BCWD #### [facility] [address] [place] [address] Eosinophils (Bld) [#/Vol] 0.1 10*3/uL Normal 0.0-0.7 [facility] Comment on above: Performed By: #### C BCWD #### [facility] [address] [place] [address] Eosinophils/100 WBC (Bld) 1.7 % Normal [facility] Comment on above: Performed By: #### C BCWD #### [facility] [address] [place] [address] Erythrocyte distribution width (RBC) [Ratio] 14.0 % Normal 11.5-14.5 [facility] Comment on above: Performed By: #### C BCWD #### [facility] [address] [place] [address] Hematocrit (Bld) [Volume fraction] 43.9 % Normal 37.0-47.0 [facility] Comment on above: Performed By: #### C BCWD #### [facility] [address] [place] [address] Hemoglobin (Bld) [Mass/Vol] 14.7 g/dL Normal 12.0-16.0 [facility] Comment on above: Performed By: #### C BCWD #### [facility] [address] [place] [address] Lymphocytes (Bld) [#/Vol] 2.6 10*3/uL Normal 1.0-4.8 [facility] Comment on above: Performed By: #### C BCWD #### [facility] [address] [place] [address] Lymphocytes/100 WBC (Bld) 35.3 % Normal [facility] Comment on above: Performed By: #### C BCWD #### [facility] [address] [place] [address] MCH (RBC) [Entitic mass] 29.8 pg Normal 27.0-31.3 [facility] Comment on above: Performed By: #### C BCWD #### [facility] [address] [place] [address] MCHC 33.4 % Normal 33.0-37.0 [facility] Comment on above: Performed By: #### C BCWD #### [facility] [address] [place] [address] MCV (RBC) [Entitic vol] 89.3 fL Normal 79.4-94.8 [facility] Comment on above: Performed By: #### C BCWD #### [facility] [address] [place] [address] Monocytes (Bld) [#/Vol] 0.6 10*3/uL Normal 0.2-0.8 [facility] Comment on above: Performed By: #### C BCWD #### [facility] [address] [place] [address] Monocytes/100 WBC (Bld) 8.4 % Normal [facility] Comment on above: Performed By: #### C BCWD #### [facility] [address] [place] [address] Neutrophils (Bld) [#/Vol] 4.0 10*3/uL Normal 1.4-6.5 [facility] Comment on above: Performed By: #### C BCWD #### [facility] [address] [place] [address] Neutrophils/100 WBC (Bld) 53.3 % Normal [facility] Comment on above: Performed By: #### C BCWD #### [facility] [address] [place] [address] Platelets (Bld) [#/Vol] 238 10*3/uL Normal 130-400 [facility] Comment on above: Performed By: #### C BCWD #### [facility] [address] [place] [address] RBC (Bld) [#/Vol] 4.91 10*6/uL Normal 4.20-5.40 [facility] Comment on above: Performed By: #### C BCWD #### [facility] [address] [place] [address] WBC (Bld) [#/Vol] 7.4 10*3/uL Normal 4.8-10.8 [facility] Comment on above: Performed By: #### C BCWD #### [facility] [address] [place] [address] CBC with Auto Differentialon 07-12-2022 Basophils (Bld) [#/Vol] 0.1 10*3/uL 0.0 - 0.2 K/uL [facility] Basophils/100 WBC (Bld) 1.3 % [facility] Eosinophils (Bld) [#/Vol] 0.1 10*3/uL 0.0 - 0.7 K/uL [facility] Eosinophils/100 WBC (Bld) 1.7 % [facility] Hematocrit (Bld) [Volume fraction] 43.9 % 37.0 - 47.0 % [facility] Hemoglobin (Bld) [Mass/Vol] 14.7 g/dL 12.0 - 16.0 g/dL [facility] Lymphocytes (Bld) [#/Vol] 2.6 10*3/uL 1.0 - 4.8 K/uL [facility] Lymphocytes/100 WBC (Bld) 35.3 % [facility] MCH (RBC) [Entitic mass] 29.8 pg 27.0 - 31.3 pg [facility] MCHC (RBC) [Mass/Vol] 33.4 % 33.0 - 37.0 % [facility] MCV (RBC) [Entitic vol] 89.3 fL 79.4 - 94.8 fL [facility] Monocytes (Bld) [#/Vol] 0.6 10*3/uL 0.2 - 0.8 K/uL [facility] Monocytes/100 WBC (Bld) 8.4 % [facility] Neutrophils Absolute 4.0 K/uL 1.4 - 6.5 K/uL [facility] Neutrophils/100 WBC (Bld) 53.3 % [facility] Platelet distribution width (Bld) [Ratio] 14.0 % 11.5 - 14.5 % [facility] Platelets (Bld) [#/Vol] 238 10*3/uL 130 - 400 K/uL [facility] RBC (Bld) [#/Vol] 4.91 10*6/uL [facility] WBC (Bld) [#/Vol] 7.4 10*3/uL 4.8 - 10.8 K/uL [facility] CKon 07-12-2022 CK [Catalytic activity/Vol] 29 U/L 0 - 170 U/L [facility] Comprehensive Metabolic Pane annalise 07-12-2022 Anion gap [Moles/Vol] 11 mmol/L Normal 9-15 [facility] Comment on above: Performed By: #### C BCWD #### [facility] [address] [place] [address] Chloride [Moles/Vol] 102 mmol/L Normal 95-107 [facility] Comment on above: Performed By: #### C BCWD #### [facility] [address] [place] [address] Potassium [Moles/Vol] 4.3 mmol/L Normal 3.4-4.9 [facility] Comment on above: Performed By: #### C BCWD #### [facility] [address] [place] [address] Sodium [Moles/Vol] 139 mmol/L Normal 135-144 [facility] Comment on above: Performed By: #### C BCWD #### [facility] [address] [place] [address] Albumin [Mass/Vol] 3.9 g/dL Normal 3.5-4.6 [facility] Comment on above: Performed By: #### C BCWD #### [facility] [address] [place] [address] ALP [Catalytic activity/Vol] 81 U/L Normal 40-130 [facility] Comment on above: Performed By: #### C BCWD #### [facility] [address] [place] [address] ALT [Catalytic activity/Vol] 10 U/L Normal 0-33 [facility] Comment on above: Performed By: #### C BCWD #### [facility] [address] [place] [address] AST [Catalytic activity/Vol] 14 U/L Normal 0-35 [facility] Comment on above: Performed By: #### C BCWD #### [facility] [address] [place] [address] Bilirubin [Mass/Vol] 0.3 mg/dL Normal 0.2-0.7 [facility] Comment on above: Performed By: #### C BCWD #### [facility] [address] [place] [address] Calcium [Mass/Vol] 9.6 mg/dL Normal 8.5-9.9 [facility] Comment on above: Performed By: #### C BCWD #### [facility] [address] [place] [address] CO2 [Moles/Vol] 26 mmol/L Normal 20-31 [facility] Comment on above: Performed By: #### C BCWD #### [facility] [address] [place] [address] Creatinine [Mass/Vol] 0.78 mg/dL Normal 0.50-0.90 [facility] Comment on above: Performed By: #### C BCWD #### [facility] [address] [place] [address] GFR >60.0 Normal >60 [facility] Comment on above: Result Comment: Osman atric [...] secretion. Performed By: #### C BCWD #### [facility] [address] [place] [address] Globulin (S) [Mass/Vol] 3.1 g/dL Normal 2.3-3.5 [facility] Comment on above: Performed By: #### C BCWD #### [facility] [address] [place] [address] Glucose [Mass/Vol] 135 mg/dL Critically high 70-99 [facility] Comment on above: Performed By: #### C BCWD #### [facility] [address] [place] [address] Protein [Mass/Vol] 7.0 g/dL Normal 6.3-8.0 [facility] Comment on above: Performed By: #### C BCWD #### [facility] [address] [place] [address] Urea nitrogen [Mass/Vol] 14 mg/dL Normal 8-23 [facility] Comment on above: Performed By: #### C BCWD #### [facility] [address] [place] [address] Albumin [Mass/Vol] 3.9 g/dL 3.5 - 4.6 g/dL [facility] ALP (Bld) [Catalytic activity/Vol] 81 U/L 40 - 130 U/L [facility] ALT [Catalytic activity/Vol] 10 U/L 0 - 33 U/L [facility] Anion gap [Moles/Vol] 11 mmol/L [facility] AST [Catalytic activity/Vol] 14 U/L 0 - 35 U/L [facility] Bilirubin [Mass/Vol] 0.3 mg/dL 0.2 - 0.7 mg/dL [facility] Calcium [Mass/Vol] 9.6 mg/dL 8.5 - 9.9 mg/dL [facility] Chloride [Moles/Vol] 102 mmol/L [facility] CO2 [Moles/Vol] 26 mmol/L [facility] Creatinine [Mass/Vol] 0.78 mg/dL 0.50 - 0.90 mg/dL [facility] GFR/1.73 sq M.predicted MDRD (S/P/Bld) [Vol rate/Area] 60 - PINF [facility] Comment on above: Pediatric calculator link https://www.kidney.org/professionals/kdoqi/gfr_calculatorped [...] [Mass/Vol] 3.1 g/dL 2.3 - 3.5 g/dL [facility] Glucose [Mass/Vol] 135 mg/dL High 70 - 99 mg/dL [facility] Interpretation and review of laboratory results Abnormal [facility] Potassium [Moles/Vol] 4.3 mmol/L [facility] Protein [Mass/Vol] 7.0 g/dL 6.3 - 8.0 g/dL [facility] Sodium [Moles/Vol] 139 mmol/L [facility] Urea nitrogen (BldV) [Mass/Vol] 14 mg/dL 8 - 23 mg/dL [facility] Creatine Kinaseon 07-12-2022 CK [Catalytic activity/Vol] 29 U/L Normal 0-170 [facility] Comment on above: Performed By: #### C PK #### [facility] [address] [place] [id number] Culture, Bloodon 07-12-2022 Microscopic examination of blood, culture ORDER#: [id number] ORDERED BY: KM KIRBY SOURCE: Blood COLLECTED: 07/12/22 16:42 ANTIBIOTICS AT KASHIF.: RECEIVED : 07/12/22 17:12 Culture, Blood FINAL 07/17/22 20:15 No growth after 5 days of incubation. Normal [facility] Comment on above: Performed By: #### C XBL #### [facility] [address] [place] [address] Culture, Blood 2on 3 Culture, Blood 2 ORDER#: [id number] ORDERED BY: KM KIRBY SOURCE: Blood COLLECTED: 07/12/22 16:42 ANTIBIOTICS AT KASHIF.: RECEIVED : 07/12/22 17:12 Culture, Blood 2 FINAL 07/17/22 20:15 No growth after 5 days of incubation. Normal [facility] Comment on above: Performed By: #### C XBL2 #### [facility] [address] [place] [address] High Sensitivity CRPon 07-12 High Sensitivity CRP 8.9 mg/L Critically high 0.0-5.0 [facility] Comment on above: Performed By: #### H SCRP #### [facility] [address] [place] [address] High sensitivity CRPon 07-12 CRP High Sensitivity 8.9 mg/L High 0.0 - 5.0 mg/L [facility] Interpretation and review of laboratory results Abnormal [facility] Lactic Acidon 07-12-2022 Lactate [Moles/Vol] 1.0 mmol/L Normal 0.5-2.2 [facility] Comment on above: Performed By: #### L ACID #### [facility] [address] [place] [address] Lactate [Moles/Vol] 1 mmol/L 0.5 - 2. 2 mmol/L [facility] Magnesiumon 07-12-2022 Magnesium [Mass/Vol] 1.9 mg/dL Normal 1.7-2.4 [facility] Comment on above: Performed By: #### C BCWD #### [facility] [address] [place] [address] Magnesium [Mass/Vol] 1.9 mg/dL 1.7 - 2.4 mg/dL [facility] Microscopic Urinalysison Bacteria, UA Negative Negative /HPF [facility] Epithelial Cells, UA 0-2 [facility] Hyaline Casts, UA 0-1 [facility] RBC, UA 0-2 [facility] WBC, UA 0-2 [facility] No Panel Informationon 07-12 [facility] Partial Thromboplastin Timeo n 07-12-2022 aPTT Coag (Bld) [Time] 29.9 s Normal 24.4-36.8 [facility] Comment on above: Result Comment: Sharon ctive 03/15/2020: Heparin Therapeutic Range: 64.0 ? 98.0 seconds. Performed By: #### C BCWD #### [facility] [address] [facility] [address] Procalcitoninon 07-12-2022 Procalcitonin 0.06 ng/mL Normal 0.00-0.15 [facility] Comment on above: Result Comment: Susp ected [...] to determine the patient's Mortality Risk Prognosis ([email or web address]-[email or web address]) In healthy neonates, plasma Procalcitonin (PCT) concentrations increase gradually after , reaching peak values at about 24 hours of age then decrease to normal values below 0.5 ng/mL by 48-72 hours of age. Performed By: #### C BCWD #### [facility] [address] [place] [address] Procalcitonin 0.06 ng/mL 0.00 - 0.15 ng/mL [facility] Comment on above: Suspected Sepsis: Low likelihood [...] to determine the patient's Mortality Risk Prognosis ([email or web address]-[email or web address]) In healthy neonates, plasma Procalcitonin (PCT) concentrations increase gradually after , reaching peak values at about 24 hours of age then decrease to normal values below 0.5 ng/mL by 48-72 hours of age. Prothrombin Timeon 3 INR Coag (PPP) [Relative time] 1.0 {INR} Normal [facility] Comment on above: Performed By: #### P T #### [facility] [address] [place] [address] PT Coag (PPP) [Time] 13.6 s Normal 12.3-14.9 [facility] Comment on above: Performed By: #### P T #### [facility] [address] [place] [address] Protime-INRon 07-12-2022 INR Coag (Bld) [Relative time] 1.0 {INR} [facility] PT Coag (PPP) [Time] 13.6 s [facility] TSHon 07-12-2022 TSH Qn 1.610 m[IU]/L [facility] TSH w/out Reflexon TSH w/out Reflex 1.610 uIU/mL Normal 0.440-3.86 [facility] Comment on above: Performed By: #### T SH #### [facility] [address] [place] [address] Troponinon 07-12-2022 Troponin I.cardiac [Mass/Vol] ng/mL Normal 0.000-0.01 [facility] Comment on above: Result Comment: Meth odology by Troponin T. Performed By: #### C BCWD #### [facility] [address] [place] [address] Troponin I.cardiac [Mass/Vol] ng/mL 0.000 - 0.010 ng/mL [facility] Comment on above: Methodology by Telma Figueroa Urinalysis with Reflex to Cu ltureon 07-12-2022 Bilirubin Urine Negative Negative [facility] Blood, Urine Negative Negative [facility] Clarity, UA Clear Clear [facility] Color, UA Yellow Straw/Yellow [facility] Glucose, Ur Negative Negative mg/dL [facility] Interpretation and review of laboratory results Abnormal [facility] Ketones Ql (U) Negative Negative mg/dL [facility] Leukocyte esterase Test strip Ql (U) TRACE Abnormal Negative [facility] Nitrite, Urine Negative Negative [facility] pH, UA 5.0 5.0 - 9.0 [facility] Protein, UA Negative Negative mg/dL [facility] Specific Rougon, UA 1.011 1.005 - 1.030 [facility] Urine Reflex to Culture Not Indicated [facility] Urobilinogen, Urine 0.2 [facility] Urinalysis, reflex to cultur elizabeth 07-12-2022 Urine Reflexed to Culture Not Indicated Normal [facility] Comment on above: Performed By: #### C BCWD #### [facility] [address] [place] [address] Bilirubin Ql (U) Negative Normal Negative [facility] Comment on above: Performed By: #### C BCWD #### [facility] [address] [place] [address] Clarity (U) Clear Normal Clear [facility] Comment on above: Performed By: #### C BCWD #### [place] [facility] [address] [place] [address] Color (U) Yellow Normal Straw/[place] [facility] Comment on above: Performed By: #### C BCWD #### [facility] [address] [place] [address] Glucose Ql (U) Negative Normal Negative [facility] Comment on above: Performed By: #### C BCWD #### [facility] [address] [place] [address] Hemoglobin Ql (U) Negative Normal Negative [facility] Comment on above: Performed By: #### C BCWD #### [facility] [address] [place] [address] Ketones Ql (U) Negative Normal Negative [facility] Comment on above: Performed By: #### C BCWD #### [facility] [address] [place] [address] Leukocyte esterase Test strip Ql (U) TRACE Abnormal Negative [facility] Comment on above: Performed By: #### C BCWD #### [facility] [address] [place] [address] Nitrite Ql (U) Negative Normal Negative [facility] Comment on above: Performed By: #### C BCWD #### [facility] [address] [place] [address] pH (U) 5.0 [pH] Normal 5.0-9.0 [facility] Comment on above: Performed By: #### C BCWD #### [facility] [address] [place] [address] Protein Ql (U) Negative Normal Negative [facility] Comment on above: Performed By: #### C BCWD #### [facility] [address] [place] [address] Specific gravity (U) [Rel density] 1.011 Normal 1.005-1.03 [facility] Comment on above: Performed By: #### C BCWD #### [facility] [address] [place] [address] Urobilinogen Qn (U) 0.2 {Nerissa'U}/dL Normal < 2.0 [facility] Comment on above: Performed By: #### C BCWD #### [facility] [address] [place] [address] Urine Microscopicon 07-13-19 23 Bacteria LM.HPF (Urine sed) [#/Area] Negative Normal Negative [facility] Comment on above: Performed By: #### U DIEGO #### [facility] [address] [place] [address] Urine Epithelial Cells Auto 0-2 Normal 0-5 [facility] Comment on above: Performed By: #### U DIEGO #### [facility] [address] [place] [address] Urine Hyaline Casts Auto 0-1 Normal 0-5 [facility] Comment on above: Performed By: #### U DIEGO #### [facility] [address] [place] [address] Urine RBC Auto 0-2 Normal 0-5 [facility] Comment on above: Performed By: #### U DIEGO #### [facility] [address] [place] [address] Urine WBC Auto 0-2 Normal 0-5 [facility] Comment on above: Performed By: #### U DIEGO #### [facility] [address] [place] [address] XR CHEST (2 VW)on 07-12-2022 XR CHEST [...] Salo Quinteros MD 07/12/22 Final result Normal [facility] No acute process. Mild elevation of right hemidiaphragm. [facility] EX[facility]ATION: TWO XRAY VIEWS OF THE [...] The osseous structures are without acute process. [facility] Salo Quinteros MD - 07/12/2022 EXAMINATION: [...] acute process. Mild elevation of right hemidiaphragm. [facility] Phone: Radiology Study observation (narrative) [facility] Phone: XR CHEST (2 VW)Ordered By: David Quinteros on 07-12-2022 [facility] Phone: proBNPon 07-12-2022 Natriuretic peptide B (Bld) [Mass/Vol] 265 pg/mL Normal [facility] Comment on above: Result Comment: NT-p ro [...] pulmonary emboli, pulmonary hypertension, pericarditis Reference: Dharmesh Hoyt et al. NT-proBNP testing for diagnosis and short-term prognosis in acute destabilized HF: an international pooled analysis of 1256 patients. Heart Journal. 2006;27:330-337 Performed By: #### B NPPR #### [facility] [address] [place] [address] GLYCOHEMOGLOBIN A1Con 2022 ADA RECOMMENDATION SEE BELOW Normal [facility] Comment on above: Result Comment: ADA RECOMMENDED LIMIT 4.0 - 6.0 ADA THERAPEUTIC TARGET < 7.0 ACTION SUGGESTED > 7.0 Performed By: #### A 1C ####[facility] [address] [place], [place] [address]Jp. Eber Kelly Glucose [Mass/Vol] 148 mg/dL Normal [facility] Comment on above: Performed By: #### A 1C ####[facility] [address] [place], [place] [address]Di. Eber Kelly HbA1c (Bld) [Mass fraction] 6.8 % Critically high 4.5-6.2 [facility] Comment on above: Performed By: #### A 1C ####[facility] [address] [place], [place] [address]It. Eber Kelly No Panel Informationon 07-03 BLANK _ [facility] ic Implant Date 02/27/2015 [facility] in Model 2088TC Tendril STS [facility] PACEMAKER REMOTE CHECKon AV Delay Adaptive Paced Minimum (ms) 150 ms [facility]ian AV Delay Adaptive Sensed Minimum (ms) 130 ms [facility] AV Delay Paced (ms) 100 ms [facility] AV Delay Sensed (ms) 100 ms [facility] Battery Voltage (volts) 2.92 V [facility] Dirk RA Pacing Amplitude (volts) 2 V [facility] Dirk RA Pacing Polarity BI [facility] Dirk RA Pacing Pulse Width (ms) 0.5 ms [facility] Dirk RA Sensing Amplitude (mvolts) 0.4 mV [facility] favian Dirk RA Sensing Polarity BI [facility] Dirk RV Pacing Amplitude (volts) 1.5 V [facility] ic Dirk RV Pacing Polarity BI [facility] Dirk RV Pacing Pulse Width (ms) 0.5 ms [facility] Dirk RV Sensing Amplitude (mvolts) 2 mV [facility] Dirk RV Sensing Polarity BI [facility] Lead1 Mfg STJ [facility] ic Lead2 Mfg STJ [facility] ic Location RA [facility] ic Location RV [facility] Lower Rate (bpm) 60 {beats}/min [facility] Max Sensor Rate (bmp) 120 {beats}/min [facility] Model 2240 Assurity [facility] lin Pacing Mode DDD [facility] favian PM-Device Mfg STJ [facility]inic PM-Percent Pacing (A) 4.4 % [facility] PM-Percent Pacing (V) 99 % [facility] RA Bipolar Impedance ohms 450 ohm [facility] RV Bipolar Impedance ohms 840 ohm [facility] Serial Number [id number] [facility]inic Serial Number [id number] [facility] Serial Number [id number] [facility] lin Thresh RA Capture Amplitude (volts) 1 V [facility] ic Thresh RA Capture Duration (ms) 0.5 ms [facility] Thresh RA Sensing Amplitude (mvolts) 0.5 mV [facility] afvian Thresh RV Capture Amplitude (volts) 1.25 V [facility] ic Thresh RV Capture Duration (ms) 0.5 ms [facility] Thresh RV Sensing Amplitude (mvolts) 12 mV [facility] Tracking Rate (bpm) 120 {beats}/min [facility] BNPon 06-29-2022 Natriuretic peptide B (Bld) [Mass/Vol] 214.0 pg/mL Normal <=1,800.0 [facility] Comment on above: Performed By: #### C MP, BNP, CMADM ####[facility] [address] [place] [address]Dr. Eber Kelly CARDIAC FRIEDA ADMITon 023 CK [Catalytic activity/Vol] 31 U/L Normal 26-192 [facility] Comment on above: Performed By: #### C MP, BNP, CMADM #### [facility] [address] [place] [address] [address] Eber Kelly CK.MB [Mass/Vol] ng/mL Normal <=3.60 [facility] Comment on above: Performed By: #### C MP, BNP, CMADM #### [facility] [address] [place] [address] [address] Eber Kelly HSTROP 5.2 pg/mL Normal 4.0-51.3 [facility] Comment on above: Result Comment: CUT- OFF POINTS HAVE BEEN ESTABLISHED BASED ON THE FOURTH UNIVERSAL DEFINITIONS OF MYOCARDIAL INFARCTION. THE UPPER REFERENCE LIMIT (URL) OF TROPONIN, DEFINED THE 99TH PERCENTILE OF cTnI DISTRIBUTION IN A REFERENCE POPULATION, HAS BEEN CONFIRMED THE DECISION THRESHOLD FOR VT DIAGNOSIS. Performed By: #### C MP, BNP, CMADM #### [facility] [address] [place] [address] Dr. Eber Kelly ADELA 44 ng/mL Normal 9-82 [facility] Comment on above: Performed By: #### C MP, BNP, CMADM #### [facility] [address] [place] [address] Dr. Eber Kelly CBC AUTO DIFFon 06-29-2022 BASO # 0.1 103/ul Normal 0.0-0.1 [facility] Comment on above: Performed By: #### C BC #### [facility] [address] [place] [address] Dr. Eber Kelly Basophils/100 WBC (Bld) 1.4 % Normal 0.2-2.0 [facility] Comment on above: Performed By: #### C BC #### [facility] [address] [place] [address] Dr. Eber Kelly EO # 0.2 103/ul Normal 0.0-0.7 [facility] Comment on above: Performed By: #### C BC #### [facility] [address] [place] [address] Dr. Eber Kelly Eosinophils/100 WBC (Bld) 2.0 % Normal 0.9-7.0 [facility] Comment on above: Performed By: #### C BC #### [facility] [address] [place] [address] Dr. Eber Kelly Erythrocyte distribution width (RBC) [Ratio] 13.3 % Normal 11.0-15.0 [facility] Comment on above: Performed By: #### C BC #### [facility] [address] [place] [address] Dr. Eber Kelly Hematocrit (Bld) [Volume fraction] 47.3 % Normal 36.0-48.0 [facility] Comment on above: Performed By: #### C BC #### [facility] [address] [place] [address] Dr. Eber Kelly Hemoglobin (Bld) [Mass/Vol] 15.8 g/dL Normal 12.0-16.0 [facility] Comment on above: Performed By: #### C BC #### [facility] [address] [place] [address] Dr. Eber Kelly IG # 0.02 10e3/ul Normal 0.00-0.03 [facility] Comment on above: Performed By: #### C BC #### [facility] [address] [place] [address] Dr. Eber Kelly IG % 0.2 % Normal 0.0-0.5 [facility] Comment on above: Performed By: #### C BC #### [facility] [address] [place] [address] Dr. Eber Kelly LYMPH # 2.4 103/ul Normal 1.2-3.8 [facility] Comment on above: Performed By: #### C BC #### [facility] [address] [place] [address] Dr. Eber Kelly Lymphocytes/100 WBC (Bld) 28.5 % Normal 20.5-60.0 [facility] Comment on above: Performed By: #### C BC #### [facility] [address] [place] [address] Dr. Eber Kelly MANUAL DIFF REQ NO Normal [facility] Comment on above: Performed By: #### C BC #### [facility] [address] [place] [address] Dr. Eber Kelly MCH (RBC) [Entitic mass] 29.2 pg Normal 26.7-34.0 [facility] Comment on above: Performed By: #### C BC #### [facility] [address] [place] [address] Dr. Eber Kelly MCHC (RBC) [Mass/Vol] 33.4 g/dL Normal 29.9-35.2 [facility] Comment on above: Performed By: #### C BC #### [facility] [address] [place] [address] Dr. Eber Kelly MCV (RBC) [Entitic vol] 87.4 fL Normal 81.0-99.0 [facility] Comment on above: Performed By: #### C BC #### [facility] [address] [place] [address] Dr. Eber Kelly MONO # 0.7 103/ul Normal 0.3-0.8 [facility] Comment on above: Performed By: #### C BC #### [facility] [address] [place] [address] Dr. Eber Kelly Monocytes/100 WBC (Bld) 7.9 % Normal 1.7-12.0 [facility] Comment on above: Performed By: #### C BC #### [facility] [address] [place] [address] Dr. Eber Kelly NEUT # 5.0 103/ul Normal 1.4-6.5 [facility] Comment on above: Performed By: #### C BC #### [facility] [address] [place] [address] Dr. Eber Kelly Neutrophils/100 WBC (Bld) 60.0 % Normal 43.0-75.0 [facility] Comment on above: Performed By: #### C BC #### [facility] [address] [place] [address] Dr. Eber Kelly Platelet mean volume (Bld) [Entitic vol] 11.0 fL Normal 9.5-13.5 [facility] Comment on above: Performed By: #### C BC #### [facility] [address] [place] [address] Dr. Eber Kelly PLT 310 103/ul Normal 150-450 [facility] Comment on above: Performed By: #### C BC #### [facility] [address] [place] [address] Dr. Eber Kelly RBC 5.41 106/ul Critically high 4.20-5.40 [facility] Comment on above: Performed By: #### C BC #### [facility] [address] [place], [place] [address] Dr. Eber Kelly WBC 8.3 103/ul Normal 4.0-11.0 [facility] Comment on above: Performed By: #### C BC #### [facility] [address] [place], [place] [address] HEAD WO CONon [...] JOEY MARLEY Date: 2022-06-29 10:09 Normal [facility] CTA NECK WO W CONon 06-29-19 CTA NECK WO W CON EXAMINATION: CTA [...] by: ADIN KILLIAN Date: 2022-06-29 11:[address] [facility] ER URINE PROFILEon 3 Bilirubin Ql (U) Negative Normal NEGATIVE [facility] Comment on above: Performed By: #### E RUR #### [facility] [address] [place] [address] Dr. Eber Kelly Clarity (U) CLEAR Normal CLEAR [facility] Comment on above: Performed By: #### E RUR #### [facility] [address] [place] [address] Dr. Eber Kelly Color (U) LT. YELLOW Normal YELLOW [facility] Comment on above: Performed By: #### E RUR #### [facility] [address] [place] [address] Dr. Eber Kelly ERUD A micrscopic examination will be performed if indicated. Normal [facility] Comment on above: Performed By: #### E RUR #### [facility] [address] [place] [address] Dr. Eber Kelly Glucose Ql (U) Negative Normal NEGATIVE [facility] Comment on above: Performed By: #### E RUR #### [facility] [address] [place] [address] Dr. Eber Kelly Hemoglobin Ql (U) Negative Normal NEGATIVE [facility] Comment on above: Performed By: #### E RUR #### [facility] [address] [place] [address] Dr. Eber Kelly Ketones Ql (U) Negative Normal NEGATIVE [facility] Comment on above: Performed By: #### E RUR #### [facility] [address] [place] [address] Dr. Eber Kelly LEUKOCYTES Negative Normal NEGATIVE [facility] Comment on above: Performed By: #### E RUR #### [facility] [address] [place] [address] Dr. Eber Kelly Nitrite Ql (U) Negative Normal NEGATIVE [facility] Comment on above: Performed By: #### E RUR #### [facility] [address] [place] [address] Dr. Eber Kelly pH (U) 6.0 [pH] Normal 5-9 [facility] Comment on above: Performed By: #### E RUR #### [facility] [address] [place] [address] Dr. Eber Kelly SPEC GRAVITY <=1.005 Abnormal 1.005-<=1.025 [facility] Comment on above: Performed By: #### E RUR #### [facility] [address] [place] [address] Dr. Eber Kelly UA PROTEIN Negative Normal NEGATIVE/ TRACE [facility] Comment on above: Performed By: #### E RUR #### [facility] [address] [place] [address] Dr. Eber Kelly UR MICRO IND NOT INDICATED Normal [facility] Comment on above: Performed By: #### E RUR #### [facility] [address] [place] [address] Dr. Eber Kelly Urobilinogen Qn (U) 0.2 {Nerissa'U}/dL Normal 0.2 - 1. 0 [facility] Comment on above: Performed By: #### E RUR #### [facility] [address] [place] [address] Dr. Eber Kelly POINT OF CARE GLUCOSEon 06-12 Glucose [Mass/Vol] 156 mg/dL Critically high 74-106 T [facility] Comment on above: Performed By: #### P OCGLUC ####[facility] [address] [place], [place] [address]FdDr. Eber Kelly PROF 14(COMP METB)on 023 Albumin [Mass/Vol] 3.9 g/dL Normal 3.4-5.0 [facility] Comment on above: Performed By: #### C MP, BNP, CMADM #### [facility] [address] [place] [address] [address] Eber Kelly Albumin/Globulin [Mass ratio] 1.0 {ratio} Normal [facility] Comment on above: Performed By: #### C MP, BNP, CMADM #### [facility] [address] [place] [address] [address] Eber Kelly ALP [Catalytic activity/Vol] 79 U/L Normal 46-116 [facility] Comment on above: Performed By: #### C MP, BNP, CMADM #### [facility] [address] [place] [address] [address] Eber Kelly ALT [Catalytic activity/Vol] 15 U/L Normal 14-59 [facility] Comment on above: Performed By: #### C MP, BNP, CMADM #### [facility] [address] [place] [address] [address] Eber Kelly Anion gap [Moles/Vol] 13.3 mmol/L Normal [facility] Comment on above: Performed By: #### C MP, BNP, CMADM #### [facility] [address] [place] [address] [address] Eber Kelly AST [Catalytic activity/Vol] 13 U/L Critically low 15-37 [facility] Comment on above: Performed By: #### C MP, BNP, CMADM #### [facility] [address] [place] [address] [address] Eber Kelly Bilirubin [Mass/Vol] 0.6 mg/dL Normal 0.2-1.0 [facility] Comment on above: Performed By: #### C MP, BNP, CMADM #### [facility] [address] [place] [address] [address] Eber Kelly Calcium [Mass/Vol] 9.4 mg/dL Normal 8.5-10.1 [facility] Comment on above: Performed By: #### C MP, BNP, CMADM #### [facility] [address] [place] [address] [address] Eber Kelly Chloride [Moles/Vol] 104 mmol/L Normal 98-107 [facility] Comment on above: Performed By: #### C MP, BNP, CMADM #### [facility] [address] [place] [address] [address] Eber Kelly CO2 [Moles/Vol] 26.9 mmol/L Normal 21.0-32.0 [facility] Comment on above: Performed By: #### C MP, BNP, CMADM #### [facility] [address] [place] [address] Dr. Eber Kelly Creatinine [Mass/Vol] 0.94 mg/dL Normal 0.55-1.02 [facility] Comment on above: Performed By: #### C MP, BNP, CMADM #### [facility] [address] [place] [address] Dr. Eber Kelly EGFR-AF MALAGASY >60 Normal >=60 [facility] Comment on above: Performed By: #### C MP, BNP, CMADM #### [facility] [address] [place] [address] Dr. Eber Kelly EGFR-NON AF MALAGASY 57 mL/min/1.73m2 Critically low >=60 [facility] Comment on above: Performed By: #### C MP, BNP, CMADM #### [facility] [address] [place] [address] Dr. Eber Kelly Globulin (S) [Mass/Vol] 4.0 g/dL Normal [facility] Comment on above: Performed By: #### C MP, BNP, CMADM #### [facility] [address] [place] [address] Dr. Eber Kelly Glucose [Mass/Vol] 159 mg/dL Critically high 74-106 T [facility] Comment on above: Performed By: #### C MP, BNP, CMADM #### [facility] [address] [place] [address] [address] Eber Kelly Potassium [Moles/Vol] 4.2 mmol/L Normal 3.5-5.1 [facility] Comment on above: Performed By: #### C MP, BNP, CMADM #### [facility] [address] [address] [address] Eber Kelly Protein [Mass/Vol] 7.9 g/dL Normal 6.4-8.2 [facility] Comment on above: Performed By: #### C MP, BNP, CMADM #### [facility] [address] [place] [address] [address] Eber Kelly Sodium [Moles/Vol] 140 mmol/L Normal 136-145 [facility] Comment on above: Performed By: #### C MP, BNP, CMADM #### [facility] [address] [place] [address] [address] Eber Kelly Urea nitrogen [Mass/Vol] 14.0 mg/dL Normal 7.0-18.0 [facility] Comment on above: Performed By: #### C MP, BNP, CMADM #### [facility] [address] [address] [address] Eber Kelly Urea nitrogen/Creatinine [Mass ratio] 14.9 mg/mg Normal [facility] Comment on above: Performed By: #### C MP, BNP, CMADM #### [facility] [address] [address] [address] Eber Kelly PROTIMEon 06-29-2022 INR Coag (PPP) [Relative time] 1.05 {INR} Normal [facility] Comment on above: Performed By: #### P TT, PT ####[facility] [address] [place] [address]Dr. Eber Kelly INR GUIDELINES SEE BELOW Normal [facility] Comment on above: Result Comment: JULIOCESAR RED INR: 2.0 - 3.0 CONDITIONS NOT LISTED BELOW 2.5 - 3.5 FOR PROSTHETIC HEART VALVE REPLACEMENT 2.5 - 3.5 RECURRENT THROMBOSIS Performed By: #### P TT, PT ####[facility] [address] [place], [place] [address]Ow. Eber Kelly PT Coag (PPP) [Time] 11.1 s Normal 9.0-11.6 [facility] Comment on above: Performed By: #### P TT, PT ####[facility] [address] [place], [place] [address]UjYasmin Kelly PTTon 06-29-2022 aPTT Coag (Bld) [Time] 31.8 s Normal 22.3-36.2 [facility] Comment on above: Performed By: #### P TT, PT ####[facility] [address] [place], [place] [address]Yi. Eber Kelly XR CHEST 1 Von 06-29-2022 [...] by: ANDREW MONTALVO Date: 2022-06-29 10:[address] [facility] No Panel Informationon 05-01 BLANK _ [facility] ic Implant Date 02/27/2015 [facility] inic Model 2088TC Tendril STS [facility] PACEMAKER CLINIC CHECKon AMS Fallback Rate (bpm) 70 {beats}/min [facility] AV Delay Adaptive Paced Minimum (ms) 150 ms [facility]ian AV Delay Adaptive Rate Maximum (bpm) 120 {beats}/min [facility]ian AV Delay Adaptive Rate Minimum (bpm) 90 {beats}/min [facility]ian AV Delay Adaptive Sensed Minimum (ms) 130 ms [facility] inic AV Delay Adaptive Status Medium [facility] AV Delay Paced (ms) 100 ms [facility] AV Delay Sensed (ms) 100 ms [facility] Battery Voltage (volts) 2.93 V [facility] Dirk RA Pacing Amplitude (volts) 2 V [facility] ic Dirk RA Pacing Polarity BI [facility] Dirk RA Pacing Pulse Width (ms) 0.5 ms [facility] Dirk RA Sensing Blanking Period (ms) 150 ms [facility] Dirk RA Sensing Polarity BI [facility] Dirk RA Sensing Refractory Period (ms) 190 ms [facility] Dirk RV Pacing Amplitude (volts) 1.25 V [facility] ic Dirk RV Pacing Polarity BI [facility] Dirk RV Pacing Pulse Width (ms) 0.5 ms [facility] c Dirk RV Sensing Amplitude (mvolts) 2 mV [facility] favian Idrk RV Sensing Blanking Period (ms) 44 ms [facility] Dirk RV Sensing Polarity BI [facility] Dirk RV Sensing Refractory Period (ms) 250 ms [facility] Hysteresis Rate (bpm) Off [facility] Lead1 Mfg STJ [facility] ic Lead2 Mfg STJ [facility] ic Location RA [facility] ic Location RV [facility] Lower Rate (bpm) 60 {beats}/min [facility] Max Sensor Rate (bmp) 120 {beats}/min [facility] Model 2240 Assurity [facility] linic Pacemaker Dependent? YES [facility] Pacing Mode DDD [facility] favian PM-Device Mfg STJ [facility] PM-Percent Pacing (A) 3.9 % [facility] PM-Percent Pacing (V) 99.98 % [facility] PM-PMT Intervention Atrial Pace [facility] PM-PVC Intervention Off [facility] PM-Rate Modulation Acceleration Reaction Fast [facility] PM-Rate Modulation Deceleration Medium [facility] PM-Rate Modulation [place] Auto (+2) [facility] PM-Rate Modulation Threshold Auto (+0.0) [facility] Rhythm Sinus rhythm with complete heart block [facility] Serial Number [id number] [facility] Serial Number [id number] [facility] Serial Number [id number] [facility] Thresh RA Capture Amplitude (volts) 1 V [facility] ic Thresh RA Capture Duration (ms) 0.5 ms [facility] Thresh RA Sensing Amplitude (mvolts) 1.4 mV [facility] favian Thresh RV Capture Amplitude (volts) 1 V [facility] Thresh RV Capture Duration (ms) 0.5 ms [facility] Thresh RV Sensing Amplitude (mvolts) 12 mV [facility] Tracking Rate (bpm) 120 {beats}/min [facility] No Panel Informationon 04-01 BLANK _ [facility] ic Implant Date 02/27/2015 [facility] inic Model 2088TC Tendril STS [facility] PACEMAKER REMOTE CHECKon AV Delay Adaptive Paced Minimum (ms) 150 ms [facility] favian AV Delay Adaptive Sensed Minimum (ms) 130 ms [facility] in AV Delay Paced (ms) 100 ms [facility] AV Delay Sensed (ms) 100 ms [facility] Battery Voltage (volts) 2.93 V [facility] Dirk RA Pacing Amplitude (volts) 2 V [facility] Dirk RA Pacing Polarity BI [facility] Dirk RA Pacing Pulse Width (ms) 0.5 ms [facility] Dirk RA Sensing Amplitude (mvolts) 0.4 mV [facility] Dirk RA Sensing Polarity BI [facility] Dirk RV Pacing Amplitude (volts) 1.125 [facility] Dirk RV Pacing Polarity BI [facility] Dirk RV Pacing Pulse Width (ms) 0.5 ms [facility] Dirk RV Sensing Amplitude (mvolts) 2 mV [facility] Dirk RV Sensing Polarity BI [facility] Lead1 Mfg STJ [facility] ic Lead2 Mfg STJ [facility] Location RA [facility] Location RV [facility] Lower Rate (bpm) 60 {beats}/min [facility] Max Sensor Rate (bmp) 120 {beats}/min [facility] Model 2240 Assurity [facility] lin Pacing Mode DDD [facility] favian PM-Device Mfg STJ [facility] PM-Percent Pacing (A) 4.2 % [facility] PM-Percent Pacing (V) 99 % [facility] RA Bipolar Impedance ohms 450 ohm [facility] RV Bipolar Impedance ohms 850 ohm [facility] Serial Number [id number] [facility] Serial Number [id number] [facility] Serial Number [id number] [facility] Thresh RA Capture Amplitude (volts) 1 V [facility] ic Thresh RA Capture Duration (ms) 0.5 ms [facility] Thresh RA Sensing Amplitude (mvolts) 0.5 mV [facility] Thresh RV Capture Amplitude (volts) 0.875 V [facility] Thresh RV Capture Duration (ms) 0.5 ms [facility] Thresh RV Sensing Amplitude (mvolts) 12 mV [facility] favian Tracking Rate (bpm) 120 {beats}/min [facility] MICROALBUMIN URINEon 022 Albumin, Urine 35.2 ug/mL Normal Not Estab. [facility] Comment on above: Performed By: #### M ALBLC #### [facility] [address] [address] [address] Eber Kelly CBC AUTO DIFFon 01-07-2022 BASO # 0.1 103/ul Normal 0.0-0.1 [facility] Comment on above: Performed By: #### C BC ####[facility] [address] [address]Dr. Eber Kelly Basophils/100 WBC (Bld) 1.1 % Normal 0.2-2.0 [facility] Comment on above: Performed By: #### C BC ####[facility] [address] [address]DrYasmin Kelly EO # 0.2 103/ul Normal 0.0-0.7 [facility] Comment on above: Performed By: #### C BC ####[facility] [address] [address]DrYasmin Kelly Eosinophils/100 WBC (Bld) 1.7 % Normal 0.9-7.0 [facility] Comment on above: Performed By: #### C BC ####[facility] [address] [address]DrYasmin Kelly Erythrocyte distribution width (RBC) [Ratio] 13.4 % Normal 11.0-15.0 [facility] Comment on above: Performed By: #### C BC ####[facility] [address] [address]DrYasmin Kelly Hematocrit (Bld) [Volume fraction] 47.0 % Normal 36.0-48.0 [facility] Comment on above: Performed By: #### C BC ####[facility] [address] [place], [place] [address]DrYasmin Kelly Hemoglobin (Bld) [Mass/Vol] 15.5 g/dL Normal 12.0-16.0 [facility] Comment on above: Performed By: #### C BC ####[facility] [address] [address]Dr. Eber Robin IG # 0.03 10e3/ul Normal 0.00-0.03 [facility] Comment on above: Performed By: #### C BC ####[facility] [address] [address]Dr. Eber Robin IG % 0.3 % Normal 0.0-0.5 [facility] Comment on above: Performed By: #### C BC ####[facility] [address] [address]DrYasmin Francesrobin Kelly LYMPH # 3.2 103/ul Normal 1.2-3.8 [facility] Comment on above: Performed By: #### C BC ####[facility] [address] [place], [place] [address]Dr. Francesrobin Kelly Lymphocytes/100 WBC (Bld) 34.4 % Normal 20.5-60.0 [facility] Comment on above: Performed By: #### C BC ####[facility] [address] [place], [place] [address]DrYasmin Francesrobin Kelly MANUAL DIFF REQ NO Normal [facility] Comment on above: Performed By: #### C BC ####[facility] [address] [place], [place] [address]DrYasmin Eber Kelly MCH (RBC) [Entitic mass] 29.1 pg Normal 26.7-34.0 [facility] Comment on above: Performed By: #### C BC ####[facility] [address] [place], [place] [address]DrYasmin Eber Robin MCHC (RBC) [Mass/Vol] 33.0 g/dL Normal 29.9-35.2 [facility] Comment on above: Performed By: #### C BC ####[facility] [address] [address]DrYasmin Eber Robin MCV (RBC) [Entitic vol] 88.3 fL Normal 81.0-99.0 [facility] Comment on above: Performed By: #### C BC ####[facility] [address] [place], [place] [address]Dr. Eber Kelly MONO # 0.9 103/ul Critically high 0.3-0.8 [facility] Comment on above: Performed By: #### C BC ####[facility] [address] [address]Dr. Eber Kelly Monocytes/100 WBC (Bld) 9.5 % Normal 1.7-12.0 [facility] Comment on above: Performed By: #### C BC ####[facility] [address] [address]Dr. Eber Kelly NEUT # 4.9 103/ul Normal 1.4-6.5 [facility] Comment on above: Performed By: #### C BC ####[facility] [address] [address]Dr. Eber Kelly Neutrophils/100 WBC (Bld) 53.0 % Normal 43.0-75.0 [facility] Comment on above: Performed By: #### C BC ####[facility] [address] [address]Dr. Eber Kelly Platelet mean volume (Bld) [Entitic vol] 10.8 fL Normal 9.5-13.5 [facility] Comment on above: Performed By: #### C BC ####[facility] [address] [address]Dr. Eber Kelly PLT 305 103/ul Normal 150-450 [facility] Comment on above: Performed By: #### C BC ####[facility] [address] [address]Dr. Eber Kelly RBC 5.32 106/ul Normal 4.20-5.40 [facility] Comment on above: Performed By: #### C BC ####[facility] [address] [address]Dr. Eber Kelly WBC 9.3 103/ul Normal 4.0-11.0 [facility] Comment on above: Performed By: #### C BC ####[facility] [address] [place], [place] [address]Dr. Eber Kelly GLYCOHEMOGLOBIN A1Con 08-29- 2022 ADA RECOMMENDATION SEE BELOW Normal [facility] Comment on above: Result Comment: ADA RECOMMENDED LIMIT 4.0 - 6.0 ADA THERAPEUTIC TARGET < 7.0 ACTION SUGGESTED > 7.0 Performed By: #### A 1C ####[facility] [address], [place] [address]AaDr. Eber Kelly Glucose [Mass/Vol] 154 mg/dL Normal [facility] Comment on above: Performed By: #### A 1C ####[facility] [address] [place], [place] [address]GtDr. Eber Kelly HbA1c (Bld) [Mass fraction] 7.0 % Critically high 4.5-6.2 [facility] Comment on above: Performed By: #### A 1C ####[facility] [address] [address]Dr. Eber Kelly PROF CHEM 8 (BAS METB)on Anion gap [Moles/Vol] 12.9 mmol/L Normal [facility] Comment on above: Performed By: #### B SAVI, TSH #### [facility] [address] [address] [address] Eber Kelly Calcium [Mass/Vol] 9.4 mg/dL Normal 8.5-10.1 [facility] Comment on above: Performed By: #### B SAVI, TSH #### [facility] [address] [address] [address] Eber Kelly Chloride [Moles/Vol] 100 mmol/L Normal 98-107 [facility] Comment on above: Performed By: #### B MP, TSH #### [facility] [address] [address] [address] Eber Kelly CO2 [Moles/Vol] 30.0 mmol/L Normal 21.0-32.0 [facility] Comment on above: Performed By: #### B MP, TSH #### [facility] [address] [address] [address] Eber Kelly Creatinine [Mass/Vol] 1.04 mg/dL Critically high 0.55-1.02 [facility] Comment on above: Performed By: #### B MP, TSH #### [facility] [address] [address] [address] Eber Kelly EGFR-AF MALAGASY >60 Normal >=60 [facility] Comment on above: Performed By: #### B MP, TSH #### [facility] [address] [address] [address] Eber Kelly EGFR-NON AF MALAGASY 51 mL/min/1.73m2 Critically low >=60 [facility] Comment on above: Performed By: #### B MP, TSH #### [facility] [address] [address] [address] Eber Kelly Glucose [Mass/Vol] 160 mg/dL Critically high 74-106 T [facility] Comment on above: Performed By: #### B MP, TSH #### [facility] [address] [address] [address] Eber Kelly Potassium [Moles/Vol] 3.9 mmol/L Normal 3.5-5.1 [facility] Comment on above: Performed By: #### B MP, TSH #### [facility] [address] [address] [address] Eber Kelly Sodium [Moles/Vol] 139 mmol/L Normal 136-145 [facility] Comment on above: Performed By: #### B MP, TSH #### [facility] [address] [address] [address] Eber Kelly Urea nitrogen [Mass/Vol] 21.0 mg/dL Critically high 7.0-18.0 [facility] Comment on above: Performed By: #### B MP, TSH #### [facility] [address] [address] [address] Eber Kelly Urea nitrogen/Creatinine [Mass ratio] 20.2 mg/mg Normal [facility] Comment on above: Performed By: #### B MP, TSH #### [facility] [address] [address] [address] Eber Kelly TSHon 01-07-2022 TSH 4.497 uIU/mL Critically high 0.358-3.740 [facility] Comment on above: Performed By: #### B MP, [facility] #### [facility] [address] [place] [address] Dr. Eber Kelly No Panel Informationon 12-31 BLANK _ [facility] ic Implant Date 02/27/2015 [facility] in Model 2088TC Tendril STS [facility] PACEMAKER REMOTE CHECKon AV Delay Adaptive Paced Minimum (ms) 150 ms [facility] favian AV Delay Adaptive Sensed Minimum (ms) 130 ms [facility] in AV Delay Paced (ms) 100 ms [facility] AV Delay Sensed (ms) 100 ms [facility] Battery Voltage (volts) 2.95 V [facility] Dirk RA Pacing Amplitude (volts) 2 V [facility] Dirk RA Pacing Polarity BI [facility] Dirk RA Pacing Pulse Width (ms) 0.5 ms [facility] Dirk RA Sensing Amplitude (mvolts) 0.4 mV [facility] favian Dikr RA Sensing Polarity BI [facility] Dirk RV Pacing Amplitude (volts) 1.25 V [facility] Dirk RV Pacing Polarity BI [facility] Dirk RV Pacing Pulse Width (ms) 0.5 ms [facility] Dirk RV Sensing Amplitude (mvolts) 2 mV [facility] Dirk RV Sensing Polarity BI [facility] Lead1 Mfg STJ [facility] ic Lead2 Mfg STJ [facility] Location RA [facility] Location RV [facility] Lower Rate (bpm) 60 {beats}/min [facility] Max Sensor Rate (bmp) 120 {beats}/min [facility] Model 2240 Assurity [facility]inic Pacing Mode DDD [facility] favian PM-Device Mfg STJ [facility] PM-Percent Pacing (A) 4.8 % [facility] PM-Percent Pacing (V) 99 % [facility] RA Bipolar Impedance ohms 460 ohm [facility] RV Bipolar Impedance ohms 860 ohm [facility] Serial Number [id number] [facility] Serial Number [id number] [facility] Serial Number [id number] [facility] lin Thresh RA Capture Amplitude (volts) 1 V [facility] ic Thresh RA Capture Duration (ms) 0.5 ms [facility] Thresh RA Sensing Amplitude (mvolts) 1 mV [facility] favian Thresh RV Capture Amplitude (volts) 1 V [facility] ic Thresh RV Capture Duration (ms) 0.5 ms [facility] Thresh RV Sensing Amplitude (mvolts) 12 mV [facility] favian Tracking Rate (bpm) 120 {beats}/min [facility] XR KUB 1 VIEWon 11-20-2021 XR KUB [...] by: MOOK NEFF Date: 2021-11-20 19:[address] [facility] CT CHEST WO IVCONon 07-15-[address] CHEST WO IVCON * * *Final Report* * *DATE OF EXAM: Jul 14 2017 5:00PM [facility] 0541 - CT CHEST WO IVCON [...] a follow-up examination in 6-[address]: PSCB Transcribe Date/Time: Jul 15 2017 12:47PDictated by : TANMAY MONROY MDThis examination was interpreted and the report reviewed and electronically signed by: TANMAY MONROY MD on Jul 15 2017 1:08PM [id number] IACN [facility] PROGRESSon 07-14-2017 PROGRESS HNO ID: [id number]: Melissa Pham CTS (Ct)ervice: RadiologyAuthor Type: TechnicianType: Progress NotesFiled: 07/14/2017 4:57 PMNote Text: Radiology Service Progress NotePATIENT NAME: Rufino CollinsMRN: [id number] OF SERVICE: July 14, 2017TIME: 4:57 PMPATIENT IDENTITY VERIFICATION COMPLETED USING TWO (2) METHODS: Patientconfirmed name verbally and ID band matches..PATIENT GENDER DATA: Female. status: : NoBreastfeeding status: NO.PATIENT RELEVANT IMPLANT DATA REVIEWED: YesRADIOLOGY DEPARTMENT: CT; Exam(s) Completed: ChestPERIPHERAL IV DATA: Not applicableSIGNED BY: [facility] 2017 4:57 PM [facility] Vital Signs Date Time Vital Sign Value Performing Clinician Facility 09-03-2023 11:[id number] Body height 171.45 cm [facility] 09-03-2023 11:22-0400 Body mass index (BMI) [Ratio] 36.6 kg/m2 [facility] 09-03-2023 11:22-0400 Body weight 107.5 kg [facility] 09-03-2023 11:22-0400 Diastolic blood pressure 84 mm[Hg] [facility] 09-03-2023 11:22-0400 Heart rate 90 /min [facility] 09-03-2023 11:22-0400 SaO2% (BldA) [Mass fraction] 97 % [facility] 09-03-2023 11:22-0400 Systolic blood pressure 122 mm[Hg] [facility] 08-22-2023 13:36-0400 Diastolic blood pressure 76 mm[Hg] Rachid Odell MD Work Phone: [facility] 08-22-2023 13:36-0400 Heart rate 78 /min Rachid Odell MD Work Phone: [facility] 08-22-2023 13:36-0400 Systolic blood pressure 143 mm[Hg] Rachid Odell MD Work Phone: [facility] 07-08-2023 13:41-0500 Body height 171.45 cm [facility] 07-08-2023 13:41-0500 Body mass index (BMI) [Ratio] 36.3 kg/m2 [facility] 07-08-2023 13:41-0500 Body weight 106.65 kg [facility] 07-08-2023 13:41-0500 Diastolic blood pressure 83 mm[Hg] [facility] 07-08-2023 13:41-0500 Heart rate 98 /min [facility] 07-08-2023 13:41-0500 Respiratory rate 12 /min [facility] 07-08-2023 13:41-0500 Systolic blood pressure 137 mm[Hg] [facility] 05-23-2023 13:30-0500 Body height 171.45 cm Manav Ball Other [facility] Other 05-23-2023 13:30-0500 Body mass index (BMI) [Ratio] 36.88 kg/m2 Manav Ball Other [facility] Other 05-23-2023 13:30-0500 Body weight 108.41 kg Manav Ball Other [facility] Other 05-23-2023 13:30-0500 Diastolic blood pressure 75 mm[Hg] Manav Ball Other [facility] Other 05-23-2023 13:30-0500 Respiratory rate 16 /min Manav Ball Other [facility] Other 05-23-2023 13:30-0500 Systolic blood pressure 141 mm[Hg] Manav Ball Other [facility] Other 05-03-2023 11:25-0500 Body height 171.45 cm Nina Madison Other [facility] Other 05-03-2023 11:25-0500 Body mass index (BMI) [Ratio] 36.88 kg/m2 Nina Madison Other [facility] Other 05-03-2023 11:25-0500 Body temperature 98 [degF] Nina Madison Other [facility] Other 05-03-2023 11:25-0500 Body weight 108.41 kg Nina Madison Other [facility] Other 05-03-2023 11:25-0500 Diastolic blood pressure 82 mm[Hg] Nina Madison Other [facility] Other 05-03-2023 11:25-0500 Respiratory rate 18 /min Nina Wallace Other [facility] Other 05-03-2023 11:25-0500 SaO2% (BldA) [Mass fraction] 95 % Nina Wallace Other [facility] Other 05-03-2023 11:25-0500 Systolic blood pressure 118 mm[Hg] Nina Wallace Other [facility] Other 04-17-2023 09:21-0500 Blood Pressure Location Roseann Orzech [facility] 04-17-2023 09:21-0500 Body temperature 97.34 [degF] Roseann Orzech [facility] 04-17-2023 09:21-0500 Diastolic blood pressure 86 mm[Hg] Roseann Orzech [facility] 04-17-2023 09:21-0500 Heart rate 83 /min Roseann Orzech [facility] 04-17-2023 09:21-0500 Systolic blood pressure 134 mm[Hg] Roseann Orzech [facility] 04-16-2023 14:52-0500 Body height 172.7 cm Tamra Grewal MD Work Phone: [facility] 04-16-2023 14:52-0500 Body weight 108.41 kg Tamra Grewal MD Work Phone: [facility] 04-16-2023 14:52-0500 Diastolic blood pressure 84 mm[Hg] Tamra Grewal MD Work Phone: [facility] 04-16-2023 14:52-0500 Heart rate 80 /min Tamra Grewal MD Work Phone: [facility] 04-16-2023 14:52-0500 Systolic blood pressure 142 mm[Hg] Tamra Grewal MD Work Phone: [facility] 01-06-2023 13:30-0400 Body height 171.45 cm Manav Ball Other [facility] Other 01-06-2023 13:30-0400 Body mass index (BMI) [Ratio] 36.88 kg/m2 Manav Ball Other [facility] Other 01-06-2023 13:30-0400 Body weight 108.41 kg Manav Ball Other [facility] Other 01-06-2023 13:30-0400 Diastolic blood pressure 77 mm[Hg] Manav Ball Other [facility] Other 01-06-2023 13:30-0400 Respiratory rate 12 /min Manav Ball Other [facility] Other 01-06-2023 13:30-0400 Systolic blood pressure 136 mm[Hg] Manav Ball Other [facility] Other 08-21-2022 16:15-0400 Body height 171.45 cm Manav Ball Other [facility] Other 08-21-2022 16:15-0400 Body mass index (BMI) [Ratio] 37.83 kg/m2 Manav Ball Other [facility] Other 08-21-2022 16:15-0400 Body weight 111.22 kg Manav Ball Other [facility] Other 08-21-2022 16:15-0400 Diastolic blood pressure 89 mm[Hg] Manav Ball Other [facility] Other 08-21-2022 16:15-0400 Respiratory rate 16 /min Manav Ball Other [facility] Other 08-21-2022 16:15-0400 Systolic blood pressure 170 mm[Hg] Manav Ball Other [facility] Other 08-20-2022 13:26-0400 Diastolic blood pressure 79 mm[Hg] Rachid Odell MD Work Phone: [facility] 08-20-2022 13:26-0400 Heart rate 82 /min Rachid Odell MD Work Phone: [facility] 08-20-2022 13:26-0400 Systolic blood pressure 155 mm[Hg] Rachid Odell MD Work Phone: [facility] 07-17-2022 15:45-0500 Body height 171.45 cm Manav Ball Other [facility] Other 07-17-2022 15:45-0500 Diastolic blood pressure 84 mm[Hg] Manav Ball Other [facility] Other 07-17-2022 15:45-0500 Respiratory rate 16 /min Manav Ball Other [facility] Other 07-17-2022 15:45-0500 Systolic blood pressure 122 mm[Hg] Manav Ball Other [facility] Other 07-12-2022 18:00-0500 Heart rate 69 /min Km Romito DO Work Phone: [facility] 07-12-2022 18:00-0500 Respiratory rate 25 /min Km Romito DO Work Phone: [facility] 07-12-2022 18:00-0500 SaO2% (BldA) [Mass fraction] 97 % Km Kirby DO Work Phone: [facility] 07-12-2022 16:00-0500 Diastolic blood pressure 74 mm[Hg] Km Kirby DO Work Phone: [facility] 07-12-2022 16:00-0500 Systolic blood pressure 160 mm[Hg] Km Kirby DO Work Phone: [facility] 07-12-2022 15:45-0500 Body height 172.7 cm Km Kirby DO Work Phone: [facility] 07-12-2022 15:45-0500 Body mass index (BMI) [Ratio] 37.25 kg/m2 Km Kirby DO Work Phone: [facility] 07-12-2022 15:45-0500 Body temperature 97.7 [degF] Km Kirby DO Work Phone: [facility] 07-12-2022 15:45-0500 Body weight 111.13 kg Km Kirby DO Work Phone: [facility] 05-01-2022 15:58-0500 Body height 172.7 cm Tamra Grewal MD Work Phone: [facility] 05-01-2022 15:58-0500 Body temperature 97.81 [degF] Tamra Grewal MD Work Phone: [facility] 05-01-2022 15:58-0500 Body weight 112.49 kg Tamra Grewal MD Work Phone: [facility] 05-01-2022 15:58-0500 Diastolic blood pressure 68 mm[Hg] Tamra Grewal MD Work Phone: [facility] 05-01-2022 15:58-0500 Heart rate 85 /min Tamra Grewal MD Work Phone: [facility] 05-01-2022 15:58-0500 Respiratory rate 18 /min Tamra Grewal MD Work Phone: [facility] 05-01-2022 15:58-0500 SaO2% (BldA) [Mass fraction] 97 % Tamra Grewal MD Work Phone: [facility] 05-01-2022 15:58-0500 Systolic blood pressure 147 mm[Hg] Tamra Grewal MD Work Phone: [facility] 01-24-2022 14:00-0400 Diastolic blood pressure 88 mm[Hg] Rachid Odell MD Work Phone: [facility] 01-24-2022 14:00-0400 Heart rate 80 /min Rachid Odell MD Work Phone: [facility] 01-24-2022 14:00-0400 Systolic blood pressure 134 mm[Hg] Rachid Odell MD Work Phone: [facility] 11-23-2021 11:27-0400 Blood Pressure Location Natalie CARLTON [facility] 11-23-2021 11:27-0400 Diastolic blood pressure 91 mm[Hg] Natalie CARLTON [facility] 11-23-2021 11:27-0400 Heart rate 71 /min Natalie CARLTON [facility] [facility] 11-23-2021 11:27-0400 Respiratory rate 16 /min Natalie CARLTON [facility] 11-23-2021 11:27-0400 Systolic blood pressure 152 mm[Hg] Natalie CARLTON [facility] 10-09-2021 15:00-0400 Body height 171.45 cm Mook Santiago Other [facility] Other 10-09-2021 15:00-0400 Body mass index (BMI) [Ratio] 36.26 kg/m2 Mook Santiago Other [facility] Other 10-09-2021 15:00-0400 Body weight 106.6 kg Mook Santiago Other [facility] Other 10-09-2021 15:00-0400 Diastolic blood pressure 85 mm[Hg] Mook Santiago Other [facility] Other 10-09-2021 15:00-0400 Systolic blood pressure 154 mm[Hg] Mook Santiago Other [facility] Other Encounters Encounter Date Encounter Type Care Provider Facility Start: 09-03-2023 End: 09-03-2023 ambulatory [facility] Work Phone: Start: 09-03-2023 End: 09-03-2023 Patient encounter procedure [facility] Work Phone: Start: 08-22-2023 End: 08-22-2023 ambulatory MANAV FERNANDEZ Facility:[facility] Start: 08-22-2023 End: 08-22-2023 Patient encounter procedure Rachid Odell MD Work Phone: Neurology Comment on above: Neuropathy (Primary Dx); Essential tremor Start: 08-04-2023 Refill Rachid Odell MD Work Phone: Neurology Comment on above: Refill Request Start: 07-08-2023 End: 07-08-2023 Patient encounter procedure [facility] Work Phone: Start: 07-03-2023 [facility] Work Phone: Start: 07-02-2023 Follow-up encounter Tamra Grewal MD Work Phone: [facility] Start: 07-02-2023 Pacemaker Remote F/U Tamra Grewal MD Work Phone: [facility] Start: 05-23-2023 End: 05-23-2023 ambulatory Manav Fernandez Other [facility] Other Start: 05-23-2023 Transitional care manage srvc 14 day discharge Manav Fernandez [facility] Start: 05-19-2023 End: 05-19-2023 ambulatory Manav Fernandez Other [facility] Other Start: 05-19-2023 Telephone encounter Manav Fernandez [facility] Start: 05-14-2023 End: 05-14-2023 ambulatory Manav Fernandez Other [facility] Other Start: 05-14-2023 Telephone encounter Manav Fernandez [facility] Start: 05-10-2023 End: 05-10-2023 ambulatory Manav Fernandez Other [facility] Other Start: 05-10-2023 Telephone encounter Manav Fernandez [facility] Start: 05-03-2023 Office outpatient vi sit 15 minutes Nina Wallace [facility] Start: 05-03-2023 End: 05-03-2023 ambulatory Nina Wallace [facility] Other Start: 05-03-2023 End: 05-03-2023 Departed [employer]erred [employer] REPA[employer] Nina Wallace Work Phone: [facility] [place] Work Phone: Start: 04-30-2023 End: 05-01-2023 ambulatory TIM THOMAS Facility:[facility] Start: 04-30-2023 End: 04-30-2023 Patient encounter procedure CARMINA THOMAS [facility] Start: 04-17-2023 End: 04-18-2023 ambulatory Roseann X Orzech Facility:[facility] Start: 04-17-2023 End: 04-18-2023 ambulatory Roseann X Orzech Facility:[facility] Start: 04-17-2023 End: 04-17-2023 Lab Drop off Roseann X Orzech [facility] Start: 04-17-2023 End: 04-17-2023 Patient encounter procedure Roseann X Orzech [facility] Start: 04-16-2023 End: 04-16-2023 ambulatory MANAV FERNANDEZ Facility:[facility] Start: 04-16-2023 Follow-up encounter Tamra Grewal MD Work Phone: [facility] Start: 04-16-2023 End: 04-16-2023 Patient encounter procedure Tamra Grewal MD Work Phone: [facility] Comment on above: Pacemaker (Primary D x) Start: 04-11-2023 End: 04-11-2023 ambulatory Manav Fernandez Other [facility] Other Start: 04-11-2023 Telephone encounter Manav BEY [facility] Start: 04-10-2023 End: 04-10-2023 ambulatory Manav Fernandez Other [facility] Other Start: 04-10-2023 Telephone encounter Manav BEY [facility] Start: 04-02-2023 Follow-up encounter Tamra Grewal MD [facility] Start: 04-02-2023 Pacemaker Remote F/U Tamra Grewal MD Work Phone: [facility] Start: 03-04-2023 Refill Rachid Odell MD Work Phone: Neurology Comment on above: Refill Request Start: 02-20-2023 End: 02-20-2023 ambulatory MANAV FERNANDEZ Facility:[facility] Start: 02-20-2023 End: 02-20-2023 ambulatory Rachid Odell MD Work Phone: Neurology Comment on above: Essential tremor (Pr imary Dx) Start: 02-20-2023 End: 02-20-2023 Telemedicine consultation with patient Rachid Odell MD Work Phone: YONNY GREWAL [facility] Start: 02-19-2023 End: 02-19-2023 ambulatory Manav Fernandez Other [facility] Other Start: 02-19-2023 Nursing evaluation o f patient and report Manav Fernandez [facility] Start: 01-22-2023 Follow-up encounter Tamra Grewal MD Work Phone: [facility] Start: 01-22-2023 Pacemaker Remote F/U Tamra Grewal MD Work Phone: [facility] Start: 01-07-2023 End: 01-07-2023 ambulatory Manav Fernandez Other [facility] Other Start: 01-07-2023 Telephone encounter Manav Fernandez FP [facility] Start: 01-06-2023 End: 01-06-2023 ambulatory Manav Fernandez Other [facility] Other Start: 01-06-2023 Patient encounter procedure Manav Fernandez [facility] Start: 01-03-2023 End: 01-03-2023 ambulatory Manav Fernandez Other [facility] Other Start: 01-03-2023 Office outpatient vi sit 15 minutes Manav Fernandez [facility] Start: 01-02-2023 End: 01-02-2023 ambulatory Manav Fernandez Other [facility] Other Start: 01-02-2023 Telephone encounter Manav BEY [facility] Start: 01-01-2023 Follow-up encounter Tamra Grewal MD Work Phone: [facility] Start: 01-01-2023 Pacemaker Remote F/U Tamra Grewal MD Work Phone: [facility] Start: 11-25-2022 End: 11-26-2022 ambulatory Natalie CARLTON Facility:[facility] Start: 09-30-2022 Follow-up encounter Tamra Grewal MD Work Phone: [facility] Start: 09-30-2022 Pacemaker Remote F/U Tamra Grewal MD Work Phone: [facility] Start: 09-04-2022 End: 09-04-2022 ambulatory Manav Fernandez Other [facility] Other Start: 09-04-2022 Telephone encounter Manav BEY [facility] Start: 08-21-2022 End: 08-21-2022 ambulatory Manav Fernandez Other [facility] Other Start: 08-21-2022 Office outpatient vi sit 25 minutes Manav Fernandez [facility] Start: 08-20-2022 End: 08-20-2022 Patient encounter procedure Rachid Odell MD Work Phone: Neurology Comment on above: Tremor (Primary Dx); Vertigo Start: 08-15-2022 End: 08-15-2022 ambulatory Manav Fernnadez Other [facility] Other Start: 08-15-2022 Telephone encounter Manav BEY [facility] Comment on above: Appointment Start: 08-14-2022 End: 08-14-2022 ambulatory Manav Fernandez Other [facility] Other Start: 08-14-2022 Nursing evaluation o f patient and report Manav Fernandez [facility] Start: 07-29-2022 End: 07-29-2022 ambulatory Manav Fernandez Other [facility] Other Start: 07-29-2022 Telephone encounter [facility] Start: 07-17-2022 End: 07-17-2022 ambulatory Manav Fernandez Other [facility] Other Start: 07-17-2022 Office outpatient vi sit 15 minutes Manav Fernandez [facility] Start: 07-17-2022 Telephone encounter [facility] Start: 07-12-2022 End: 07-12-2022 Emergency department patient visit MANAV MOHINI [facility] Start: 07-12-2022 End: 07-12-2022 Emergency department patient visit Km Kirby DO Work Phone: [facility] Comment on above: Dizziness (Primary D x) Start: 07-11-2022 End: 07-12-[address] MANAV FERNANDEZ Facility:[facility] Start: 07-02-2022 End: 07-02-2022 ambulatory Manav Fernandez Other [facility] Other Start: 07-02-2022 Telephone encounter Manav Fernandez [facility] Start: 07-01-2022 Follow-up encounter Tamra Grewal MD Work Phone: [facility] Start: 07-01-2022 Pacemaker Remote F/U Tamra Grewal MD Work Phone: [facility] Start: 06-29-2022 End: 06-29-[address] MANAV FERNANDEZ Facility:[facility] Start: 06-28-2022 End: 06-28-2022 ambulatory Manav Fernandez Other [facility] Other Start: 06-28-2022 Telephone encounter [facility]andez [facility] Start: 06-25-2022 End: 06-25-2022 ambulatory Manav Fernandez Other [facility] Other Start: 06-25-2022 Telephone encounter Manav Fernandez [facility] Start: 05-01-2022 Follow-up encounter Tamra Grewal MD Work Phone: [facility] Start: 05-01-2022 End: 05-01-2022 Patient encounter procedure Tamra Grewal MD Work Phone: [facility] Comment on above: Pacemaker (Primary D x) Start: 04-01-2022 Follow-up encounter Tamra Grewal MD Work Phone: [facility] Start: 04-01-2022 Pacemaker Remote F/U Tamra Grewal MD Work Phone: [facility] Start: 01-24-2022 End: 01-24-2022 Patient encounter procedure Rachid Odell MD Work Phone: Neurology Comment on above: Essential tremor (Pr imary Dx) Start: 01-07-2022 End: 01-08-[address] MANAV FERNANDEZ Facility:[facility] Start: 12-31-2021 Follow-up encounter Tamra Grewal MD Work Phone: [facility] Start: 12-31-2021 Pacemaker Remote F/U Tamra Grewal MD Work Phone: [facility] Start: 11-23-2021 End: 11-23-2021 Patient encounter procedure Natalie CARLTON [facility] Start: 11-20-2021 End: 11-21-[address] MANAV FERNANDEZ Facility:[facility] Start: 10-09-2021 End: 10-09-2021 ambulatory Mook Santiago Other [facility] Other Start: 10-09-2021 Office outpatient ne w 45 minutes Mook Santiago [facility] Start: 08-21-[address] MANAV FERNANDEZ Facili ty:[facility] Start: 07-14-2017 Ambulatory [facility] Procedures Date Procedure Procedure Detail Performing Clinician Start: 07-02-2023 PACEMAKER REMOTE CHECK Tamra Grewal MD Work Phone: Start: 04-16-2023 PACEMAKER CLINIC CHECK Tamra Grewal [...] 07-12-2022 C-reactive protein h igh sensitivity Km Kirby DO Work Phone: Start: 07-12-2022 Comprehensive metabo lic panel Km Kirby DO Work Phone: Start: 07-12-2022 Urinalysis microscopic only Km Kirby DO Work Phone: Start: 07-12-2022 Urnls dip stick/tabl et rgnt auto w/o microscopy Km Wisemanito DO Work Phone: Start: 07-01-2022 PACEMAKER REMOTE [...] microalbumin profile DTaP,Tdap,Td Vaccine (2 - Tdap) [facility] Start: 07-12-2025 Diabetes Screening Diabetes Screenin g [facility] Start: 01-11-2024 Influenza vaccination Influenz a Vaccine (Season Ended) [facility] Start: 05-12-2023 Advance Directive Discussion Advance Directive Discussion [facility] Start: 05-03-2023 Bacteria identified in Urine by Culture [facility] Start: 01-10-2023 Covid-19 Vaccine ( season) Covid-19 Vaccine ( season) [facility] Start: 01-10-2023 Influenza vaccination C [facility] Start: 05-12-2022 ADVANCE DIRECTIVE DISCUSSION ADVANCE DIRECTIVE DISCUSSION [facility] Start: 01-10-2022 Influenza vaccination INFLUENZA (#1) [facility] Start: 12-10-2021 Influenza vaccination Flu vaccine (# 1) [facility] Start: 05-12-2021 ADVANCE DIRECTIVE DISCUSSION ADVANCE DIRECTIVE DISCUSSION [facility] Start: 01-15-2021 COVID-19 VACCINE (3 - Booster for Pfizer series) COVID-19 VACCINE (3 - Booster for Pfizer series) [facility] Start: 10-10-2020 COVID-19 VACCINE (3 - Booster for Pfizer series) COVID-19 VACCINE (3 - Booster for Pfizer series) [facility] Start: 10-10-2020 Covid-19 Vaccine (3 - Pfizer series) Covid-19 Vaccine (3 - Pfizer series) [facility] Start: 09-04-2019 DIABETES SCREEN [facility] Start: 09-04-2019 Diabetes Screening Diabetes Screenin g [facility] Start: 02-25-2014 Pneumococcal Vaccine : 65+ (2 - PCV) Pneumococcal Vaccine: 65+ (2 - PCV) [facility] Start: 02-25-2014 Pneumococcal Vaccine : 65+ (2 of 2 - PCV) Pneumococcal Vaccine: 65+ (2 of 2 - PCV) [facility] Start: 02-25-2014 PNEUMOCOCCAL: 65+ (2 - PCV) PNEUMOCOCCAL: 65+ (2 - PCV) [facility] Start: 2007 BONE DENSITY BONE DENSITY [facility] Start: 2007 Bone Density Screening Bone Density Screening [facility] Start: 2007 Screening for osteoporosis Bone Density Screening [facility] Start: 2002 RSV Vaccine (1 - 1-d ose 60+ series) RSV Vaccine (1 - 1-dose 60+ series) [facility] Start: 1997 Screening for osteoporosis DEXA (modify frequency per FRAX score) [facility] Start: 1992 Shingles vaccine (1 of 2) Shingles vaccine (1 of 2) [facility] Start: 1992 SHINGRIX VACCINE (1 of 2) SHINGRIX VACCINE (1 of 2) [facility] Start: 1961 DTaP/Tdap/Td vaccine (1 - Tdap) DTaP/Tdap/Td vaccine (1 - Tdap) [facility] Start: 1961 Urine microalbumin profile [facility] Start: 1960 ANNUAL PCP TEAM DUST OPERATOR FAVIAN DISEASE VISIT ANNUAL PCP TEAM CHRONIC DISEASE VISIT [facility] Start: 1960 BP CONTROLLED (<130/80) BP CONTROLLE D (<130/80) [facility] Start: 1954 Depression Screen Depression Screen [facility] End: 07-12-2022 Culture, Blood 1 [facility] Work Phone: Comment on above: One Time for 1 Occur rences starting 07/12/2022 until 07/12/2022 End: 07-12-2022 Culture, Blood 2 [facility] Work Phone: Comment on above: One Time for 1 Occur ashley starting 07/12/2022 until 07/12/2022 ECG COMPLETE ECG COMPLETE ECG Routine Pacemaker Ordered: 04/16/2023 [facility] Work Phone: Comment on above: Ordered: 04/16/2023 [facility] Immunizations Immunization Date Immunization Notes Care Provider Fa cility 11-25-2016 diphtheria, tetanus toxoids and acellular pertussis vaccine, unspecified formulation Manav Fernandez Other [facility] 02-25-2013 pneumococcal polysaccharide vaccine, 23 valent Tamra Grewal MD Work Phone: [facility] Payers Date Payer Category Payer Self-pay 2016 Private Health Insurance [facility] AARP SUPPLEMENT [id number] 2016-Present [phone] [address] [place] [address] Indemnity [id number] 2012 Medicare [id number] 2007 Medicare MEDICARE MEDICAR E A AND B [id number] 2007-Present [phone] [address] [address] [place] [address] Medicare [id number] 1959 Medicare [id number] 1959 Self-pay [id number] 1959 Unknown [id number] 1942 Unknown [id number] 1942 Unknown [id number] 1942 Unknown [id number] 1942 Unknown [id number] 1942 Unknown [id number] 1942 Unknown [id number] 1942 Unknown [id number] 1942 Unknown [id number] 1942 Unknown [id number] 1942 Unknown [id number] Medicare [id number] Private Health Insurance [facility] [id number] Unknown [facility] Health Claims [id number] Unknown [id number] Social History Date Type Detail Facility Unknown if ever smoked [facility] Other Start: 08-20-2022 End: 02-20-2023 Sex Assigned At [facility] Other Start: 11-23-2021 End: 02-22-2024 Tobacco smoking status Never smoked tobacco (finding) [facility] Start: 04-22-2017 End: 01-24-2022 Tobacco use and exposure Smokeless tobacco non-user [facility] Start: 07-24-2021 End: 08-22-2023 Alcohol intake Current non-drinker of alcohol (finding) [facility] Start: 1940 Sex Assigned At Not on file C [facility] Start: 07-02-2022 End: 07-12-2022 Exposure to SARS-CoV-2 (event) Not sure [facility] Start: 08-20-2022 End: 02-20-2023 History of Social function [facility] National Score (1-100), lower number is lower risk 62 [facility] Start: 1940 Sex Assigned At Female F [facility] Medical Equipment Procedure Code Equipment Code Equipment Origin al Text Equipment Identifier Dates Cochlear Drill Countersink 4mm - [id number] Start: 06-26-2009 Cochlear Flange Fix Str 4mm - [id number] Start: 06-26-2009 Ktk-Yz-K-Kind Implant - [id number] Start: 01-07-2011 Comment on above: Description: Surgica l simplex P Radiopaque bone cement Comp Fem 5 Rt Kn Cr Jim Trthln - [id number] Start: 01-07-2011 Ins Tib 4 11mm K n X3 Cr Trthln - [id number] Start: 01-07-2011 Comp Pat 10mm 35 mm Asym Trthln - [id number] Start: 01-07-2011 Baseplt Tib Trth ln 4 Prim - [id number] Start: 01-07-2011 Blood Sugar Diagnostic (True Metrix Glucose Test Strip) strip Start: 08-06-2023 Blood Sugar Diagnostic (True Metrix Glucose Test Strip) strip Start: 06-30-2023 End: 07-01-2023 Blood Sugar Diagnostic (True Metrix Glucose Test Strip) strip Start: 07-01-2023 End: 07-03-2023 Blood Sugar Diagnostic (True Metrix Glucose Test Strip) strip Start: 07-03-2023 End: 08-06-2023 Functional Status Date Assessment Result Facility 04-17-2023 Functional Status N/A [facility] 11-23-2021 Functional Status N/A [facility] Clinical Notes 10-09-2021 to 08-22-2023 Rachid Odell MD - 08/22/2023 1:52 PM EDTPretzlAlycia quintanilla LPN - 08/22/2023 1:27 PM EDTTelephone Encounter - Denise Gonzales - 08/04/2023 12:14 PM EDT Note Date & Type Note Facility 08-22-2023 Note HNO ID: [id number] Author: RACHID ODELL MD Service: ? Author Type: Physician Type: Progress Notes Filed: 08/22/2023 14:57 Note Text: NEUROLOGY PROGRESS NOTE Rufino Collins is a 83 year old female. Who has a history of tremors comes in for follow up. Interval History Rufino Collins is a 83 year old female, with a history of [...] feet sometimes difficulty with balance. Patient doing well since last seen tremors are under control. She states that sometimes in the evening she has this pain in her feet. Will increase her nortriptyline to 20 mg a bedtime and see how she does. ACTIVE PROBLEM LIST Hearing Loss, Sensorineural, Unilateral [...] on File Prior to Visit Medication Sig propranolol (INDERAL) 10 mg tablet Take 1 tablet by mouth four times daily. Acetaminophen-Caffeine (TENSION HEADACHE PAIN RELIEVER) 500-65 mg [...] daily. Patient denies taking this any longer [DISCONTINUED] nortriptyline (PAMELOR) 10 mg capsule Take 1 capsule by mouth daily at bedtime. No current facility-administered medications on file prior [...] HPI. All systems reviewed and are negative 08/22/23 1336 BP: 143/76 Pulse: 78 PHYSICAL EXAMINATION: General appearance: well appearing, alert, in no acute distress Neck: Supple Neurological exam: MENTAL STATUS: Alert, oriented to person, place and time and Follows commands CRANIAL NERVES: PERRLA, EOM's intact, Face symmetric, No dysarthria, and Tongue protrudes midline MOTOR: No drift MOTOR STRENGTH: Upper and lower extremity 5/5 bilaterally SENSATION: Intact light touch COORDINATION: Finger-to- nose-finger intact bilaterally GAIT: Walks with a cane IMPRESSION: 1. Essential tremor 2. Neuropathy PLAN: Any problems or concerns to call me or (more content not included)... [facility] 08-22-2023 Note HNO ID: [id number] Author: ALYCIA GARCÍA LPN Service: ? Author Type: LICENSED NURSE Type: Progress Notes Filed: 08/22/2023 14:57 Note Text: 02/19/2023 PROMIS Global Health Physical Health Summary Physical health: Everyday physical activity, ability: Fatigue: Pain level: General health: Good Social activities/roles, ability: Physical Health T-Score Physical Health Percentile No data recorded PROMIS Global [facility] Mental Health Summary Quality of life: Good Mental health (mood,thinking): Social satisfaction: Emotional problems (anxious,depressed): Mental Health T-Score Mental Health Percentile No data recorded Percentiles provide an indication of how a patient's score ranks in relation to the [place] general population. > 31st percentile is within normal limits or better *< 31st percentile is at least ? SD worse than population, which may be clinically relevant < 16th percentile is at least 1 SD worse than population and warrants attention [facility] 08-22-2023 History of Presen t illness Narrative NEUROLOGY PROGRESS NOTE Rufino Collins is a 83 year old female. Who has a history of tremors comes in for follow up. Interval History Rufino Collins is a 83 year old female, with a history of [...] feet sometimes difficulty with balance. Patient doing well since last seen tremors are under control. She states that sometimes in the evening she has this pain in her feet. Will increase her nortriptyline to 20 mg a bedtime and see how she does. ACTIVE PROBLEM LIST Hearing Loss, Sensorineural, Unilateral Osteoarthrosis, Unspecified Whether Generalized Or Localized, Lower Leg S/P Tkr (Total Knee Replacement) Using Cement Hypothyroidism Hypertension Dyspnea On Exertion Mobitz Type 2 Second Degree Heart Block Bradycardia Pulmonary Embolus (Hcc) Dysthymia Carpal Tunnel Syndrome of Right Wrist PAST SURGICAL HISTORY Procedure Laterality Date ADENOIDECTOMY PRIMARY <AGE 14 1961 Adenoidectomy CHG HYSTERECTOMY W/ 1979 CHOLECYSTECTOMY 1972 PAST SURGICAL HISTORY OF lens [...] on File Prior to Visit Medication Sig propranolol (INDERAL) 10 mg tablet Take 1 tablet by mouth four times daily. Acetaminophen-Caffeine (TENSION HEADACHE PAIN RELIEVER) 500-65 mg [...] daily. Patient denies taking this any longer [DISCONTINUED] nortriptyline (PAMELOR) 10 mg capsule Take 1 capsule by mouth daily at bedtime. No current facility-administered medications on file prior [...] HPI. All systems reviewed and are negative 08/22/23 1336 BP: 143/76 Pulse: 78 PHYSICAL EXAMINATION: General appearance: well appearing, alert, in no acute distress Neck: Supple Neurological exam: MENTAL STATUS: Alert, oriented to person, place and time and Follows commands CRANIAL NERVES: PERRLA, EOM's intact, Face symmetric, No dysarthria, and Tongue protrudes midline MOTOR: No drift MOTOR STRENGTH: Upper and lower extremity 5/5 bilaterally SENSATION: Intact light touch COORDINATION: Finger-to- nose-finger intact bilaterally GAIT: Walks with a cane IMPRESSION: 1. Essential tremor 2. Neuropathy PLAN: Any problems or concerns to call me or primary care physician immediately or go straight to the emergency department Return in about 6 months (around 02/21/2024). ASSESSMENT/PLAN: 1. Neuropathy - ICD9: 355.9, ICD10: G62.9 (primary diagnosis) 2. Essential tremor - ICD9: 333.1, ICD10: G25.0 Rachid Odell MD I spent a total of 30 minutes on the date of the service which included preparing to see the patient, [id number] patient care, completing clinical documentation, obtaining and/or reviewing separately obtained history, performing a medically appropriate examination, counseling and educating the patient/family/caregiver, and ordering medications, tests, or procedures. SIGNATURE: Rachid Odell MD PATIENT NAME: Rufino Collins DATE: August 22, 2023 TIME: 1:52 PM 02/19/2023 PROMIS Global Health Physical Health Summary Physical health: Everyday physical activity, ability: Fatigue: Pain level: General health: Good Social activities/roles, ability: Physical Health T-Score Physical Health Percentile No data recorded PROMIS Global Health Mental Health Summary Quality of life: Good Mental health (mood,thinking): Social satisfaction: Emotional problems (anxious,depressed): Mental Health T-Score Mental Health Percentile No data recorded Percentiles provide an indication of how a patient's score ranks in relation to the [place] general population. > 31st percentile is within normal limits or better *< 31st percentile is at least SD worse than population, which may be clinically relevant < 16th percentile is at least 1 SD worse than population and warrants attention 02/19/2023 PROMIS Global Health Physical Health Summary Physical health: Everyday physical activity, ability: Fatigue: Pain level: General health: Good Social activities/roles, ability: Physical Health T-Score Physical Health Percentile No data recorded PROMIS Global Health Mental Health Summary Quality of life: Good Mental health (mood,thinking): Social satisfaction: Emotional problems (anxious,depressed): Mental Health T-Score Mental Health Percentile No data recorded Percentiles provide an indication of how a patient's score ranks in relation to the [place] general population. > 31st percentile is within normal limits or better *< 31st percentile is at least SD worse than population, which may be clinically relevant < 16th percentile is at least 1 SD worse than population and warrants attention documented in this encounter [facility] 08-04-2023 Miscellaneous Notes Formattin g of this note is different from the original. Patient has been identified by name and date of : Yes Requested Prescriptions Pending Prescriptions Disp Refills nortriptyline (PAMELOR) 10 mg capsule 90 capsule 0 Sig: Take 1 capsule by mouth daily at bedtime. RX INSTRUCTIONS: Denise Gonzales documented in this encounter [facility] 05-23-2023 Evaluation note Encounter Date Diagnosis Assessment Notes May, Benign paroxysmal positional vertigo due to bilateral vestibular disorder (ICD-10 - H81.13) Finish decadron and Meclizine. Encouraged to increase activity, walk w/ support every hour. Instructed to start her exercises She will be seeing her Masseuse, who can also assist in treating her symptoms. Call w/ headache, worse spinning, N/V or fever. May, Acute hyponatremia (ICD-10 - E87.1) Healthy diet for now. Avoid excessive amounts of free water, max 64 oz. Monitor for now but could easily accounts for patient's dizziness. Corrected while hospitalized May, Type 2 diabetes mellitus with hyperglycemia, without long-term current use of insulin (ICD-10 - E11.65) This patient is following a comprehensive diabetic treatment plan. They are checking their feet daily for calluses and nonhealing ulcers. They are being seen for yearly dilated eye examinations. Goals: SBP less than 130, LDL less than 100, FBS less than 140, A1C less than 7%. They are checking their BS daily, will which are reviewed at the office visit. Continue regular routine monitoring of A1C,] Microalbumin, Dilated eye exam and Foot exam BS have increased w/ Decadron use but have already started to normalize Encouraged to push fluids 12 Jose Manuel, 2024 Autoimmune thyroiditis (ICD-10 - E06.3) Clinically euthyroid. No change in treatment May, Other specified hypothyroidism (ICD-10 - E03.8) May, SHELLEY (generalized anxiety disorder) (ICD-10 - F41.1) Instructed on a healthy diet and exercise. No change in medication, avoid abrupt d/c of meds. May, Gastroesophageal reflux disease, esophagitis presence not specified (ICD-10 - K21.9) Avoid lying flat after eating. Avoid eating 2 hours prior to bedtime. Smaller, frequent meals may be better tolerated.Weigh t loss if overweight.Kelly tor for dysphagia. Continue Pepcid AC [facility] Other 12-30-2023 Evaluation note* Encounter Date Diagnosis Assessment Notes Treatment Notes Treatment Clinical Notes Apr, Acute cystitis without hematuria (ICD-10 - N30.00) [facility] Other 12-23-2023 Evaluation note* Encounter Date Diagnosis [...] the ER for worsening symptoms or concerns [facility] Other 12-07-2023 Hospital Discharge instructions Patient Education [...] include: ?8 oz (237 mL) of milk, sgovobk-lpqwdrejkopx-unjdv milk, and calcium- fortifiedfruit juice. Calcium-fortified means [...] ?Spinach (cooked), rhubarb, beets, sweet potatoes, and Swedish chard. ?Peanuts. ?Potato chips, puerto rican fries, and baked potatoes with skin on. ?Nuts and nut products. ?Chocolate. If you regularly take a diuretic medicine, make sure to eat at least 1 or 2 servings of fruits or vegetables that are high in potassium each day. These include: ?Avocado. ?Banana. ?[place], prune, carrot, or tomato juice. ?Baked potato. [...] magnesium, fish oil, or vitamin B6. Take jkfk-uyq-xeummxi and prescription medicines only as told by [...] Casseroles. Pizza. Lasagna. Frozen meals. Potato chips. Belarusian fries. The items listed above may not [...] provider. Document Revised: 08/08/2022 Document Reviewed: 08/08/2022 [employer] Patient Education 2022 [employer]. Follow Up Care 04/15/2023 08:26:17 With:PEEWEE Luna APRN, RUDY Metz, URL Address: When: Unknown Comments:Pending sxs after abx course. [facility] [id number] NoteHNO ID: [id number] Author: Tamra Grewal MD Service: Electrophysiology Author Type: Physician Type: Progress Notes Filed: 04/17/2023 10:03 PM Note Text: [facility] NOTE DEPARTMENT OF CARDIOLOGY BECKY NAME: PRUDENCE COLLINS NO.: [id number] DATE OF SERVICE: 04/16/2023 PCP: Manav Fernandez [...] DICTATED BY: Tamra Grewal M.D. FLY/Hoda JOB# [id number]. [facility]* Encounter Date Diagnosis Assessment Notes Treatment Notes Treatment Clinical Notes Mar, Dysuria (ICD-10 - R30.0) Mar, SHELLEY (generalized anxiety disorder) (ICD-10 - F41.1) [facility] Other [id number] Miscellaneous Notes* Telephone Encounter - Casandra Lambert [...] patient. Casandra Lambert Ma [facility] NoteHNO ID: [id number] Author: Rachid Odell MD Service: ? Author [...] and/or reviewing separately obtain (more content not included)...[facility]10-12-2023 NoteHNO ID: [id number] Author: Rachid Odell MD Service: ? Author [...] Sleep Apnea Probability Score: (Sleep study not recommended)[facility]10-12-2023 NoteHNO ID: [id number] Author: Rachid Odell MD Service: ? Author [...] Sleep Apnea Probability Score: (Sleep study not recommended)[facility]10-12-[facility]23 History of Present illness Narrative* Rachid [...] (Sleep study not recommended) [facility] Evaluation note* Encounter Date Diagnosis Assessment Notes Treatment Notes Treatment Clinical Notes Feb, Dysuria (ICD-10 - R30.0) test ran by YVES Zhu [facility] Other 08-28-2023 Evaluation note* Encounter Date Diagnosis [...] taking extra 1/2 of the Buspar daily 23/11.09/23Dec, Autoimmune thyroidit is (ICD-10 - E06.3) Euthyroid, [...] and to contact office for any changes [facility] 08-25-2023 Evaluation note* Encounter Date Diagnosis Assessment Notes Treatment Notes Treatment Clinical Notes Dec, Acute non-recurrent maxillary sinusitis (ICD-10 - J01.00) Instructed to use Robitussin or Mucinex for cough, saline or Flonase NS for congestion, Tylenol for pain and fever. [facility] Other 04-12-2023 Evaluation note* Encounter Date Diagnosis [...] is (ICD-10 - E06.3) Euthyroid, yearly TSH [facility] Other 04-11-2023 History of Present illness Narrative* Rachid Odell [...] which included preparing to see the patient, lfue-wv-izbc patient care, completing clinical documentation, obtaining and/or reviewing separately obtained history, performing a medically appropriate examination, counseling and educating the pat ient/family/caregiver, and ordering medications, tests, or procedures. SIGNATURE: Rachid Odell MD PATIENT NAME: Rufino Collins DATE: August 20, 2022 TIME: 1:59 PM [facility] Miscellaneous Notes* Telephone Encounter - Mariposa Kirby - 08/19/2022 12:52 PM EDT Spoke with patient. She is scheduled for an in office visit with Dr. Odell 08/20. * Telephone Encounter - Karla Jackson - 08/15/2022 9:52 AM EDT Call center called today. : 1940 Allergies: Moxifloxacin, Percocet [Oxycodone-Acetaminophen], Capsaicin, Pravachol [Pravastatin Sodium], Cephalexin, Clavulanic Acid, Flagyl [Metronidazole], Hot Peppers [Other], Levofloxacin, and Sulfa (Sulfonamide Antibiotics) (home) [phone] (cell) Reason for call: The appointment center [...] not asked Karla Jackson documented [facility] Evaluation note* Encounter Date Diagnosis Assessment Notes Treatment Notes Treatment Clinical Notes Aug, Dysuria (ICD-10 - R30.0) [facility] 03-08-2023 Evaluation note* Encounter Date Diagnosis [...] reviewed at the office visit. A1C: yearly [facility] Other 03-03-2023 Hospital Discharge instructions* Discharge Instructions* [...] be sent through Care Everywhere. * Dizziness (Ukrainian) * [place] Maneuver: Vertigo: Exercises (Ukrainian) * Vertigo (Ukrainian) * Vertigo: [place] Exercises (Ukrainian) [facility] Work Phone: [phone]) 808-350802-21-2023 Evaluation note* Encounter Date Diagnosis Assessment Notes Treatment Notes Treatment Clinical Notes Jun, Chronic maxillary sinusitis (ICD-10 - J32.0) [facility] Other 09-15-2022 History of Present illness Narrative* Rachid Odell [...] <AGE 14 1959 Adenoidectomy CHG HYSTERECTOMY W/ 1979 CHOLECYSTECTOMY 1972 PAST SURGICAL HISTORY OF lens [...] which included preparing to see the patient, nnxy-to-jgqs patient care, completing clinical documentation, obtaining and/or reviewing separately obtained history, performing a medically appropriate examination, counseling and educating the pat ient/family/caregiver, and ordering medications, tests, or procedures. SIGNATURE: Rachid Odell MD PATIENT NAME: Rufino Collins DATE: January 24, 2022 TIME: 2:17 PM documented in this encounterK[facility]22 Hospital Discharge instructions Patient Education 11/23/2021 11:38:26 [...] 04/14/2013 Document Revised: 12/16/2018 Document Reviewed: 12/16/2018 [employer] Patient Education 2020 [employer]. 11/23/2021 11:25:05 Kidney Stones, Brkc-jc-Evdq Kidney Stones Kidney stones are rock-like masses [...] Follow these instructions at home: Medicines Take ldtn-qcg-xgcdxye and prescription medicines only as told by [...] 10/14/2008 Document Revised: 09/14/2019 Document Reviewed: 09/14/2019 [email or web address] Patient Education 2020 [employer] Follow Up Care 09/18/2020 14:42:38 With:ANAND ALMARAZ, Natalie Mosley, URL Address: [address] [place] [phone]- When:Within 1 Year(s) Comments:w/ MARCELINO [facility] 05-31-2022 Evaluation note* Encounter Date Diagnosis Assessment Notes Treatment Notes Treatment Clinical Notes September, GERD (gastroesophageal reflux disease) (ICD-10 - K21.9) Continue Pantoprazole 40mg daily September, Irritable bowel syndrome with diarrhea (ICD-10 - K58.0) Continue Dicyclomine prn September, Hemorrhoids (ICD-10 - K64.9) Start Anusol cream [place] [employer] Other Evaluation + Plan note Future Appointments Appointment Date:11/25/2022 01:15:00 PM Scheduled Provider:Natalie CARLTON MD Location:[facility] Appointment Type:URO Office Visit [facility] evaluation + Plan note Future Appointments Appointment Date:04/30/2023 11:00:00 AM Scheduled Provider: Location:[facility] Appointment Type:URO Nurse Visit [facility] Evaluation + Plan note Future Appointments Appointment Date:04/30/2023 11:00:00 AM Scheduled Provider: Location:[facility] Appointment Type:URO Nurse Visit Diagnostic Tests Pending * [facility] Essential tremor- Primary Essential and other specified forms of tremor [facility] Diagnosis Pacemaker- Primary Cardiac pacemaker in situ documented in this encounter [facility] note* Diagnosis Dizziness- Primary Dizziness and giddiness documented in this encounter [facility] Work Phone: evaluation noteNo InformationNomissouri [facility] [employer] Other Evaluation note* Diagnosis Tremor- Primary Abnormal involuntary movements Vertigo Dizziness and giddiness documented in this encounter [facility] note* Diagnosis Essential tremor- Primary Essential and other specified forms of tremor documented in this encounter [facility] note* Diagnosis Pacemaker- Primary Cardiac pacemaker in situ documented in this encounter [facility] noteNo assessment information [facility] Work Phone: Evaluation note* Diagnosis Neuropathy- Primary Mononeuritis of unspecified site Essential tremor Essential and other specified forms of tremor [facility]* Diagnosis Onset Date Resolution Status SHELLEY (generalized anxiety disorder) acute Hypertension acute Hypothyroidism acute Obesity acute Pacemaker acute Type 2 diabetes mellitus with hyperglycemia acute Maxillary sinusitis acute [facility] Work Phone: History general Narrative - [...] ABOVE SURGERY Hospitalization History kidney stones 10/2016 [facility] Other Hospital course Narrative No data available for this section [facility] Hospital Discharge instructions No data available for this section [facility] No data available for this section [facility] reason for referral (narrative)* Outpatient Procedure (Routine) - Pending Review Specialty Diagnoses / Procedures Referred By Contsera t Referred To [facility] Diagnoses Pacemaker Procedures ECG COMPLETE ECG ROUTINE ECG W/LEAST 12 LDS W/I&[place] [address] [place] [address] [facility] [address] [place] [id number] Referral ID Status Reason Start Date Expiration Date Visits Requested Visits Authorized [id number] Pending Review Auto-Generat ed Referral 04/16/2023 04/15/2024 1 1 [facility] Summary Purpose Family History Relationship Condition Age at Onset Recorded Date/T ayla father Unknown family member Unknown Not Specified Unknown Advance Directives Documents on File Type Date Recorded Patient Engrosser Expl anation Advance Directive(s) Advance Directive(s) 01/16/2007 Documents on File Type Date Recorded Patient Engrosser Expl anation Advance Directive(s) Advance Directive(s) 01/16/2007 Advance Directive Response Recorded Date/ Time Advance Directives No April 2:23pm Chief Complaint and Reason for Visit Chief Complaint Dysuria Chief Complaint Amb Documentation 6 month check up Sinus infection Reason for Visit SHELLEY (generalized anx iety disorder) Hypertension Hypothyroidism Obesity Pacemaker Type 2 diabetes mellitus with hyperglycemia Maxillary sinusitis Additional Source Comments INFORMATION SOURCE (unrecogn ized section and content) DATE CREATED AUTHOR 10/31/2017 [facility] DATE CREATED AUTHOR AUTHOR'S ORGANIZ ATION 07/17/2022 [facility] DATE CREATED AUTHOR AUTHOR'S ORGANIZ ATION 07/19/2022 [facility] DATE CREATED AUTHOR AUTHOR'S ORGANIZ ATION 05/01/2023 [facility] DATE CREATED AUTHOR AUTHOR'S ORGANIZ ATION 05/07/2023 [facility] DATE CREATED AUTHOR AUTHOR'S ORGANIZ ATION 08/23/2023 [facility] REASON FOR VISIT (unrecogniz ed section and content) Reason Comments Established Patient Reason Comments Follow Up 1 Year Follow Up/Dev ice Check Reason Comments Dizziness Reason Comments Appointment Reason Comments New Patient Evaluation Reason Comments Tremor Reason Onset Date Comments Refill Request 03/04/2023 Reason Comments Follow Up Reason Onset Date Comments Refill Request 08/04/2023 Care Team (unrecognized sect ion and content) Supervisor Film Processing Relationship Specialty Start Date End Date Manav Fernandez DO PCP - General Internal Medicine 02/07/15 aTmra Grewal MD Primary Staff Physician Cardiology 07/28/18 Supervisor Film Processing Relationship Specialty Start Date End Date Manav Fernandez DO PCP - General Internal Medicine 02/07/15 Tamra Grewal MD Primary Staff Physician Cardiology 07/28/18 Supervisor Film Processing Relationship Specialty Start Date End Date Manav Fernandez DO PCP - General Internal Medicine 02/07/15 Tamra Grewal MD Primary Staff Physician Cardiology 07/28/18 Supervisor Film Processing Relationship Specialty Start Date End Date Manav Fernandez DO PCP - General Internal Medicine 02/07/15 Tamra Grewal MD Primary Staff Physician Cardiology 07/28/18 Supervisor Film Processing Relationship Specialty Start Date End Date Manav Fernandez DO PCP - General Internal Medicine 04/23/17 Supervisor Film Processing Relationship Specialty Start Date End Date Manav Fernandez DO PCP - General Internal Medicine 02/07/15 Tamra Grewal MD Primary Staff Physician Cardiology 07/28/18 Supervisor Film Processing Relationship Specialty Start Date End Date Manav Fernandez DO PCP - General Internal Medicine 02/07/15 Tamra Grewal MD Primary Staff Physician Cardiology 07/28/18 Supervisor Film Processing Relationship Specialty Start Date End Date Manav Fernandez DO PCP - General Internal Medicine 02/07/15 Tamra Grewal MD Primary Staff Physician Cardiology 07/28/18 Supervisor Film Processing Relationship Specialty Start Date End Date Manav Fernandez DO PCP - General Internal Medicine 02/07/15 Tamra Grewal MD Primary Staff Physician Cardiology 07/28/18 Supervisor Film Processing Relationship Specialty Start Date End Date Manav Fernandez DO PCP - General Internal Medicine 02/07/15 Tamra Grewal MD Primary Staff Physician Cardiology 07/28/18 Supervisor Film Processing Relationship Specialty Start Date End Date Manav Fernandez DO PCP - General Internal Medicine 02/07/15 Tamra Grewal MD Primary Staff Physician Cardiology 07/28/18 Supervisor Film Processing Relationship Specialty Start Date End Date Manav Fernandez DO PCP - General Internal Medicine 02/07/15 Tamra Grewal MD Primary Staff Physician Cardiology 07/28/18 Supervisor Film Processing Relationship Specialty Start Date End Date Manav Fernandez DO PCP - General Internal Medicine 02/07/15 Tamra Grewal MD Primary Staff Physician Cardiology 07/28/18 Team Status: Inactive Member Role Status Dates BUSHRA Johns Attending Provider Active Supervisor Film Processing Relationship Specialty Start Date End Date Manav Fernandez DO PCP - General Internal Medicine 02/07/15 Tamra Grewal MD Primary Staff Physician Cardiology 07/28/18 Team Status: Active Member Role Status Dates Manav Fernandez DO Primary Care Provider Active Team Status: Active Member Role Status Dates PHYSICIAN NO FAMILY Primary Care Provider Active Start: July 03, 2023 YVES Zhu Attending Provider Active St art: July 03, 2023 Team Status: Inactive Member Role Status Dates PHYSICIAN NO FAMILY Primary Care Provider Active Start: July 08, 2023 End: July 08, 2023 Manav Fernandez DO Attending Provider Active Sta rt: July 08, 2023 End: July 08, 2023 Team Status: Inactive Member Role Status Dates Carmina JANIYA Noyola HANDTOOLS REPAIRER-C Attending Provider Act nguyen Start: September 03, 2023 End: September 03, 2023 Manav Fernandez DO Primary Care Provider Active Start: September 03, 2023 End: September 03, 2023 Source Comments (unrecognize d section and content) In the event this informatio n is protected by the Federal Confidentiality of Alcohol and Drug Abuse Patient Records regulations: The Federal rules restrict any use of the information to criminally investigate or prosecute any alcohol or drug abuse patient.[facility] the event this information is protected by the Federal Confidentiality of Alcohol and Drug Abuse Patient Records regulations: The Federal rules restrict any use of the information to criminally investigate or prosecute any alcohol or drug abuse patient.[facility] the event this information is protected by the Federal Confidentiality of Alcohol and Drug Abuse Patient Records regulations: The Federal rules restrict any use of the information to criminally investigate or prosecute any alcohol or drug abuse patient.[facility] the event this information is protected by the Federal Confidentiality of Alcohol and Drug Abuse Patient Records regulations: The Federal rules restrict any use of the information to criminally investigate or prosecute any alcohol or drug abuse patient.[facility] Dayton[facility] the event this information is protected by the Federal Confidentiality of Alcohol and Drug Abuse Patient Records regulations: The Federal rules restrict any use of the information to criminally investigate or prosecute any alcohol or drug abuse patient.[facility] Dayton[facility] the event this information is protected by the Federal Confidentiality of Alcohol and Drug Abuse Patient Records regulations: The Federal rules restrict any use of the information to criminally investigate or prosecute any alcohol or drug abuse patient.[facility] the event this information is protected by the Federal Confidentiality of Alcohol and Drug Abuse Patient Records regulations: The Federal rules restrict any use of the information to criminally investigate or prosecute any alcohol or drug abuse patient.[facility] the event this information is protected by the Federal Confidentiality of Alcohol and Drug Abuse Patient Records regulations: The Federal rules restrict any use of the information to criminally investigate or prosecute any alcohol or drug abuse patient.[facility] Dayton[facility] the event this information is protected by the Federal Confidentiality of Alcohol and Drug Abuse Patient Records regulations: The Federal rules restrict any use of the information to criminally investigate or prosecute any alcohol or drug abuse patient.[facility] Dayton[facility] the event this information is protected by the Federal Confidentiality of Alcohol and Drug Abuse Patient Records regulations: The Federal rules restrict any use of the information to criminally investigate or prosecute any alcohol or drug abuse patient.[facility] Dayton[facility] the event this information is protected by the Federal Confidentiality of Alcohol and Drug Abuse Patient Records regulations: The Federal rules restrict any use of the information to criminally investigate or prosecute any alcohol or drug abuse patient.[facility] Dayton[facility] the event this information is protected by the Federal Confidentiality of Alcohol and Drug Abuse Patient Records regulations: The Federal rules restrict any use of the information to criminally investigate or prosecute any alcohol or drug abuse patient.[facility] the event this information is protected by the Federal Confidentiality of Alcohol and Drug Abuse Patient Records regulations: The Federal rules restrict any use of the information to criminally investigate or prosecute any alcohol or drug abuse patient.[facility] the event this information is protected by the Federal Confidentiality of Alcohol and Drug Abuse Patient Records regulations: The Federal rules restrict any use of the information to criminally investigate or prosecute any alcohol or drug abuse patient.[facility] DaytonIn the event this information is protected by the Federal Confidentiality of Alcohol and Drug Abuse Patient Records regulations: The Federal rules restrict any use of the information to criminally investigate or prosecute any alcohol or drug abuse patient.[facility] DaytonIn the event this information is protected by the Federal Confidentiality of Alcohol and Drug Abuse Patient Records regulations: The Federal rules restrict any use of the information to criminally investigate or prosecute any alcohol or drug abuse patient.[facility] DaytonIn the event this information is protected by the Federal Confidentiality of Alcohol and Drug Abuse Patient Records regulations: The Federal rules restrict any use of the information to criminally investigate or prosecute any alcohol or drug abuse patient.[facility] DaytonIn the event this information is protected by the Federal Confidentiality of Alcohol and Drug Abuse Patient Records regulations: The Federal rules restrict any use of the information to criminally investigate or prosecute any alcohol or drug abuse patient.[facility] DaytonIn the event this information is protected by the Federal Confidentiality of Alcohol and Drug Abuse Patient Records regulations: The Federal rules restrict any use of the information to criminally investigate or prosecute any alcohol or drug abuse patient.[facility] Goals (unrecognized section and content) Goals may [...] BE BASED ON THE PRIMARY CLINICAL RECORDS. [facility] [employer] [facility]. provides no warranty or guarantee of the accuracy or completeness of information in this document.
[2023-11-14 13:31] LABS: Estimated Average Glucose 169 mg/dL; Glycohemoglobin A1C 7.5 % (4.5-6.2)
== END 2023-11-14 12:53 | disposition home or self-care (01) ==
LOC: LAB 12:52
PROVIDERS: PCP Internal Medicine; Visit Provider Internal Medicine
DX: E11.65 Type 2 diabetes mellitus with hyperglycemia (principal)
CPT/HCPCS: 36415; 83036

== ENCOUNTER 2023-12-03 10:17 | Outpatient (OUT) | payer MEDICARE, SELFPAY | END 2023-12-03 10:18 | disposition home or self-care (01) | LOC: MN 10:18 | PROVIDERS: PCP Internal Medicine; Visit Provider Internal Medicine | DX: E11.8 Type 2 diabetes mellitus with unspecified complications (principal) | CPT/HCPCS: G0108 ==

== ENCOUNTER 2024-02-10 13:51 | Outpatient (OUT) | payer MEDICARE, SELFPAY ==
--- NOTE | 2024-02-10 13:54 | ECG_ITS ---
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
--- OUTSIDE RECORDS SUMMARY | 2024-02-10 14:16 | XMS_ITS | CCD ---
Author Organization [facility] Care Team Providers Care Mutuel Teller Name Role Phone BRYANT SUAREZ Unavailable Unavailable Mook Santiago Unavailable MANAV RAJAN Primary Care Physician Manav Rajan DO Primary Care Provider Tamra Grewal MD Unavailable [phone] Manav Rajan DO Primary Care Provider Tamra Grewal MD Unavailable [phone] Manav Rajan DO Primary Care Provider DR MANAV RAJAN Primary Care Unavailable NATALIE MICHEL Admitting Unavailable NATALIE MICHEL Attending Unavailable NATALIE MICHEL Consulting Unavailable AISHWARYA, DR MOOK Gordon Consulting Unavailable MOHINI, DR JEFFERS Primary Care Unavailable RUTHANN ., QUEENIE Admitting Unavailable RUTHANN ., QUEENIE Attending Unavailable ADIN KILLIAN Consulting Unavailable RUTHANN ., QUEENIE Consulting Unavailable JOEY MARLEY Consulting Unavailable ANDREW MONTALVO Consulting Unavailable MOHINI, DR JEFFERS Primary Care Unavailable NATALIE MICHEL Attending Unavailable NATALIE MICHEL Admitting Unavailable BALL, DR JEFFERS Primary Care Unavailable MOHINI, DR JEFFERS Admitting Unavailable BALL, DR JEFFERS Attending Unavailable BALL, DR JEFFERS Consulting Unavailable BALL, DR JEFFERS Primary Care Unavailable BALL, DR JEFFERS Admitting Unavailable BALL, DR JEFFERS Attending Unavailable BALL, DR JEFFERS Consulting Unavailable MANAV RAJAN Primary Care Unavailable KM JASON Attending Unavailable Manav Rajan Unavailable Tamra Grewal MD Unavailable [phone] Natalie MICHEL Attending Unavailable TIM THOMAS Attending Unavailab Roseann Hinojosa Attending Unavailable Cheryl Roseann X Admitting Unavailable Roseann Luna Attending Unavailable Nina Wallace Unavailable BUSHRA Wallace Attending Provider Nina Wallace Attending Unavailable Nina Wallace Admitting Unavailable NO FAMILY, PHYSICIAN Primary Care Unavailable MANAV RAJAN Primary Care Unavailable RACHID ODELL Attending Unavailable RACHID ODELL Referring Unavailable MANAV RAJAN Primary Care Unavailable TAMRA GREWAL Attending Unavailable MANAV RAJAN Primary Care Unavailable MANAV RAJAN Primary Care Unavailable RACHID ODELL Attending Unavailable Allergies Allergy Classification Reported Allergen(s) Allergy Type Date of Onset Reaction(s) Facility (20 sources) acetaminophen / oxyCODONE; Translations: [OXYCODONE-ACETAMI NOPHEN] Drug Allergy 12-03-19 07 Intolerance [facility] Repository (20 sources) capsaicin; Translations: [CAPSAICIN] Drug Allergy 02-10-20 15 Itching [facility] Repository (20 sources) cephalexin; Translations: [CEPHALEXIN] Drug Allergy 07-23-19 17 Itching [facility] Repository (20 sources) clavulanic acid; Translations: [CLAVULANIC ACID] Drug Allergy 07-23-19 17 Itching [facility] Repository (20 sources) levoFLOXacin; Translations: [LEVOFLOXACIN] Drug Allergy 07-23-19 17 Itching [facility] Repository (20 sources) metroNIDAZOLE; Translations: [METRONIDAZOLE] Drug Allergy 07-23-19 17 Itching [facility] Repository (20 sources) moxifloxacin; Translations: [MOXIFLOXACIN] Drug Allergy 12-21-19 04 Unknown (qualifier value), Intolerance [facility] Repository (20 sources) pravastatin; Translations: [PRAVASTATIN SODIUM] Drug Allergy 06-15-19 10 Intolerance [facility] Repository (20 sources) Sulfonamides (Antibiotic); Translations: [SULFA (SULFONAMIDE ANTIBIOTICS)] Propensity to adverse reactions to drug (disorder) 12-21-19 04 GI Upset [facility] Repository (2 sources) OTHER; Translations: [OTHER] Propensity to adverse reactions (disorder) 12-20-19 07 AOF [facility] Repository (20 sources) Acetaminophen / oxyCODONE; Translations: [acetaminophen-oxy codone] Drug Allergy Unknown (qualifier value) [employer] Other (1 source) Amoxicillin / Clavulanate Drug Allergy Unknown [employer] Other (20 sources) Sulfonamides (Antibiotic) Drug allergy Unknown [employer] Other (20 sources) Pepper Drug allergy Unknown [employer] Other (5 sources) Sulfonamides (Antibiotic); Translations: [sulfa drugs] Drug allergy Unknown (qualifier value) [facility] (5 sources) Peppers; Translations: [Peppers] Food allergy Unknown (qualifier value) [facility] (18 sources) hot peppers [Other] Propensity to adverse reactions 12-20-19 07 Itching [facility] Work Phone: (3 sources) oxyCODONE Drug Allergy 02-20-20 17 Unknown Reaction [facility] [employer] Work Phone: (15 sources) Sulfonamides (Antibiotic) Propensity to adverse reactions to drug 06-09-19 15 Unknown [facility] [employer] [facility] Work Phone: (2 sources) Acetaminophen / oxyCODONE Drug Allergy 03-24-[address] [facility] Repository (1 source) Amoxicillin Drug Allergy [facility] Repository (2 sources) Ciprofloxacin Drug Allergy 10-23-[address] [facility] Repository (3 sources) moxifloxacin; Translations: [Avelox] Drug Allergy 03-24-[address] [facility] Repository (2 sources) Sulfonamides (Antibiotic) Drug allergy (disorder) 03-24-[address] [facility] Repository (20 sources) Amoxicillin-Pot Clavulanate Drug allergy Unknown [employer] Other (13 sources) Amoxicillin Drug Allergy Unknown [employer] Other (16 sources) metFORMIN Drug Allergy 09-03-19 Unknown, Unknown Reaction [facility] (14 sources) Pseudoephedrine Drug Allergy Unknown PAIEON [facility] [employer] Other (16 sources) sulfADIAZINE Drug Allergy 09-03-19 24 Comment:Sulfa [facility] (14 sources) Avelox *FLUOROQUINOLONES* Propensity to adverse reactions Unknown [employer] Other (1 source) Acetaminophen / oxyCODONE; Translations: [Percocet ] Drug Allergy [facility] Repository (2 sources) Acetaminophen Drug Allergy 09-03-19 Unknown Reaction [facility] (2 sources) pepper (genus Capsicum) Allergy to substance 09-03-19 Unknown Reaction [facility] Medications Current Medications Medication Drug Class(es) Dates Sig (Normalized) Sig (Original) amoxicillin 500 mg oral capsule (4 sources) Penicillin-class Antibacterial Start: 05-10-2023 take 1 capsule by mouth every twelve hours Amoxicillin 500 MG 1 capsule Orally Twice a day for 7 days Apr, Active ascorbic acid 500 mg extended release oral capsule (2 sources) Vitamin C Start: 07-04-2023 take 500 mg by mouth once daily Ascorbic Acid (Vitamin C) Active 500 MG PO Daily July 04, 2023 1:00am azithromycin 250 mg oral tablet (4 sources) Macrolide Antimicrobial Start: 09-03-2023 Azithromycin Active 250 MG PO daily 6 5 September 03, 2023 12:00am Take 2 today [...] Ordered Blood-Glucose Meter (True Metrix Glucose Meter) [facility] (2 sources) Start: 07-03-2023 Blood-Glucose Meter (True Metrix Glucose Meter) [facility] Active 0 .Route July 03, 2023 1:00am to test blood sugar busPIRone hydrochloride 15 mg oral tablet (20 sources) Start: 12-09-2023 take 15 mg by mouth twice daily, then take 7.5 mg by mouth once at bedtime Buspirone Active 15 MG PO .COMPLEX 225 Rody 30th, 2024 6:15pm 15mg bid and 7.5mg q HS Start: 09-24-2023 End: 12-09-2023 take 1 tablet by mouth twice daily Buspirone Discontinued 0 .ROUTE .COMPLEX 180 September 24, 2023 1:20pm December 09, 2023 6:17pm TAKE 1 TABLET BY MOUTH TWICE A DAY Start: 02-17-2019 busPIRone Oral , BID, Refills(s) 0 Start Date: 02/17/19 Status: Ordered Start: 10-06-2018 End: 09-24-2023 take 15 mg by mouth twice daily Buspirone Discontinued 15 MG PO Twice daily July 04, 2023 1:00am September 24, 2023 1:20pm BuSpar 15 mg BID Active Comment on above: Take 1 tablet by jigna th twice daily. cephalexin 500 mg oral capsule (10 sources) Cephalosporin Antibacterial Start: 04-17-2023 End: 04-27-2023 take 1 capsule by mouth twice daily Keflex 500 mg Cap 500 mg = 1 cap(s), Oral, BID, X 10 day(s), # 20 cap(s), Refills(s) 0, Pharmacy: [facility]/pharmacy #[id number], 170, cm, 04/17/23 9:22:00 EST, [...] Daily, # 30 tab(s), Refills(s) 6, Pharmacy: [facility]/pharmacy #[id number], 170, cm, 04/17/23 9:22:00 EST, Height/Length Dosing, 113.9, kg, 04/17/23 9:22:00 EST, Weight Dosing Start Date: 04/17/23 Status: Ordered Start: 04-23-2021 End: 04-18-2022 take 0.5 tablet by mouth once daily chlorthalidone 25 mg Tab half tab, Oral, Daily, X 30 day(s), # 15 tab(s), Refills(s) 11, Pharmacy: [facility]/pharmacy #[id number], 170, cm, 09/18/20 14:12:00 EDT, [...] Jun, Active famotidine 10 mg oral tablet (3 sources) Histamine-2 Receptor Antagonist Start: 07-04-2023 take 10 mg by mouth twice daily Famotidine Active 10 MG PO Twice daily July 04, 2023 1:00am take 1 tablet by mouth every twe lve hours Pepcid AC 10 MG 1 tablet as needed Orally Twice a day Active glimepiride 1 mg oral tablet (2 sources) Sulfonylurea Start: 12-10-2023 take 1 tablet by mouth once daily in the morning Glimepiride Active 0 .ROUTE .COMPLEX 90 December 10, 2023 12:50pm TAKE 1 TABLET BY MOUTH EVERY MORNING, ADMINISTER WITH BREAKFAST Start: 11-14-2023 End: 12-10-2023 take 1 mg by mouth once daily at breakfast Glimepiride Discontinued 1 MG PO Every morning November 14, 2023 12:00am December 10, 2023 12:50pm administer with breakfast [employer] Gummies (20 sources) [...] a day for 14 days September, Active B-Csaiedetdqwi-K94-B6-B2 (CEREFOLIN PO) (1 source) R-Ecxifbljzfjf-U 12-B6-B2 (CEREFOLIN PO) Take by mouth daily [...] Multivitamin With Minerals (Hair,Skin And Nails) tablet (2 sources) Start: 07-04-19 take 1 tablet by mouth [...] capsule (20 sources) Tricyclic Antidepressant Start: 08-22-19 End: 02-18-20 take 10 mg by mouth twice daily Nortriptyline Active 10 MG PO Twice daily November 17, 2023 10:21am Start: 11-25-2022 End: 11-17-2023 take 10 mg by mouth once daily Nortriptyline Discontin ued 10 MG PO Daily July 04, 2023 1:00am November 17, 2023 10:21am Start: 08-20-2022 End: 11-18-2022 take 1 capsule by mouth once daily at bedtime nortriptyline (PAMELOR) 10 mg capsule Take 1 capsule by mouth daily at bedtime. 90 capsule 0 10/17/2022 Active Comment on above: Take 1 capsule by mo [facility] daily at bedtime. Take 1 capsule by mo [facility] two times a day. Talbott-3 Fatty Acids (FISH OIL PO) (1 source) Talbott-3 Fatty Ac ids (FISH OIL PO) Take [...] Orally qid Active take 1 tablet by jigna th every twelve hours Propranolol HCl 20 MG 1 tablet Orally BID Active Comment on above: Take 1 tablet by jigna th four times daily. 24 hr tolterodine tartrate 2 mg extended release oral capsule (2 sources) Cholinergic Muscarinic Antagonist Start: 4 take 2 [...] on above: Take 2 tablets by mo [facility] twice daily. 2 tablets in am, [...] on above: Take 1 tablet by jigna once daily. vitamin e 268 mg oral capsule (20 sources) Vitamin E, dl, acetate, (VITAMIN E) 400 unit capsule Take 400 Units by mouth as needed. 0 Active Vitamin E, dl, a cetate, (VITAMIN E) 400 unit capsule Take 400 Units by mouth as needed. 0 Active Vitamin E Active Comment on above: Take 400 Units by mo [facility] as needed. Problems Active Problems Problem Classification [...] 05-29-2010 Chronic Other aftercare (1 source) Other shelter (current) drug therapy; Translations: [[facility] OF [facility] CURRENT DRUG THERAPY] Onset: 3 Episodic Other [...] Chronic Other nutritional; endocrine; and metabolic disorders (2 sources) Obesity; Translations: [Obesity, unspecified] 07-08-2023 Chronic Other nutritional; endocrine; and metabolic disorders (2 sources) Obesity, unspecified; Translations: [Obesity, unspecified] 07-08-2023 Chronic [...] Test Name Value Interpretation Reference Range Facility Glucose mean value [Mass/vol ume] in Blood Estimated from glycated hemoglobinon 11-14-2023 Average glucose Estimated from glycated hemoglobin (Bld) [Mass/Vol] 169 mg/dL [facility] Laboratory - Hematology and Cell countson 11-14-2023 HbA1c (Bld) [Mass fraction] 7.5 % High 4.5-6.2 [facility] Comment on above: ADA RECOMMENDED LIMI T 4.0 - 6.0ADA THERAPEUTIC TARGET < 7.0ACTION SUGGESTED> 7.0 CNOVon 08-22-2023 CNOV Office Visit (NEURAV ) RUFINO COLLINS ([id number]) 1940 F Date Time Provider Department 08/22/23 2:20 PM RACHID ODELL NEURYOSVANY During your visit today, we recorded the following information about you: Pulse Blood pressure 78/minute 143/76 Alycia Ryagoza LPN 08/22/2023 2:57 PM Signed 02/19/2023 PROMIS [...] CAYLA ZAMUDIO (more content not included)... Normal [facility] Estimated glomerular filtrat ion rate (GFR) non- Americanon 07-08-2023 GFR/1.73 sq M.predicted among non-blacks MDRD (S/P/Bld) [Vol rate/Area] 53 mL/min/{1.73_m2} >=60 [facility] Glucose mean value [Mass/vol ume] in Blood Estimated from glycated hemoglobinon 07-08-2023 Average glucose Estimated from glycated hemoglobin (Bld) [Mass/Vol] 157 mg/dL [facility] Laboratory - Chemistry and C hemistry - challengeon 07-08-2023 Calcium [Mass/Vol] 9.7 mg/dL 8.5-10.1 [facility] Chloride [Moles/Vol] 101 mmol/L 98-107 [facility] CO2 [Moles/Vol] 31.6 mmol/L 21.0-32.0 [facility] Creatinine [Mass/Vol] 1.00 mg/dL 0.55-1.02 [facility] GFR/1.73 sq M.predicted MDRD (S/P/Bld) [Vol rate/Area] mL/min/{1.73_m2} >=60 [facility] Glucose [Mass/Vol] 141 mg/dL 74-106 [facility] Potassium [Moles/Vol] 4.2 mmol/L 3.5-5.1 [facility] Sodium [Moles/Vol] 140 mmol/L 136-145 [facility] Urea nitrogen [Mass/Vol] 28.0 mg/dL 7.0-18.0 [facility] Urea nitrogen/Creatinine [Mass ratio] 28.0 mg/mg [facility] Laboratory - Hematology and Cell countson 07-08-2023 HbA1c (Bld) [Mass fraction] 7.1 % 4.5-6.2 [facility] Comment on above: ADA RECOMMENDED LIMI T 4.0 - 6.0ADA THERAPEUTIC TARGET < 7.0ACTION SUGGESTED> 7.0 Serum or plasma anion gap de terminationon 07-08-2023 Anion gap [Moles/Vol] 11.6 mmol/L [facility] No Panel Informationon 07-06 BLANK _ [facility] Implant Date 02/27/2015 [facility] Model 2088TC Tendril STS [facility] PACEMAKER REMOTE CHECKon AV Delay Adaptive Paced Minimum (ms) 150 ms [facility] favian AV Delay Adaptive Sensed Minimum (ms) 130 ms [facility] AV Delay Paced (ms) 100 ms [facility] AV Delay Sensed (ms) 100 ms [facility] Battery Voltage (volts) 2.87 V [facility] Dirk RA Pacing Amplitude (volts) 2.0 V [facility] Dirk RA Pacing Polarity BI [facility] Dirk RA Pacing Pulse Width (ms) 0.5 ms [facility] Dirk RA Sensing Amplitude (mvolts) 0.4 mV [facility] favian Dirk RA Sensing Polarity BI [facility] Dirk RV Pacing Amplitude (volts) 1.625 [facility] ic Dirk RV Pacing Polarity BI [facility] Dirk RV Pacing Pulse Width (ms) 0.5 ms [facility] Dirk RV Sensing Amplitude (mvolts) 2.0 mV [facility] favian Dirk RV Sensing Polarity BI [facility] Lead1 Mfg STJ [facility] ic Lead2 Mfg STJ [facility] ic Location RA [facility] Location RV [facility] Lower Rate (bpm) 60 {beats}/min [facility] Max Sensor Rate (bmp) 120 {beats}/min [facility] Model 2240 Assurity [facility] linic Pacing Mode DDD [facility] favian PM-Device Mfg STJ [facility] linic PM-Percent Pacing (A) 6.4 % [facility] PM-Percent Pacing (V) 99.0 % [facility] RA Bipolar Impedance ohms 450 ohm [facility] RV Bipolar Impedance ohms 890 ohm [facility] Serial Number [id number] [facility] linic Serial Number [id number] [facility] linic Serial Number [id number] [facility] linic Thresh RA Capture Amplitude (volts) 1.0 V [facility] ic Thresh RA Capture Duration (ms) 0.5 ms [facility] Thresh RA Sensing Amplitude (mvolts) 0.9 mV [facility] favian Thresh RV Capture Amplitude (volts) 1.375 V [facility] ic Thresh RV Capture Duration (ms) 0.5 ms [facility] Thresh RV Sensing Amplitude (mvolts) 12.0 mV [facility] favian Tracking Rate (bpm) 120 {beats}/min [facility] Urinalysis - AUTOMATEDon Appearance (U) cloudy [employer] Other Bilirubin Ql (U) Negative [employer] Other Color (U) bright orange [employer] Other Glucose Ql (U) 100 [employer] Other Hemoglobin Ql (U) small [employer] Other Ketones Ql (U) Negative [employer] Other Leukocyte esterase Test strip Ql (U) large [employer] Other Nitrite Ql (U) Positive [employer] Other pH (U) 5.0 [pH] [employer] Other Protein Ql (U) 100 [employer] Other Specific gravity (U) [Rel density] >=1.030 [employer] Other Urobilinogen (U) [Mass/Vol] 1.0 mg/dL [employer] Other Urinalysis - AUTOMATED [employer] Other Urine Cultureon 05-03-2023 Urine Culture >100,000 [employer] Other Bacteria identified Cx Nom (U) Reason for Exam Dysuria Urine ORGANISM: Streptococcus anginosus (O:MECCA) [place] Count >100,000 Organism Comments Organism not Routinely Tested for Susceptibilities PERFORMED BY: [place] [address] PATHOLOGIST SOLAR MANUFACTURER'S REPRESENTATIVE LAKSHMI ACEVES M.D. Normal [facility] Comment on above: Performed By: #### C UU #### [address] Bacteria identified Cx Nom (U) [employer] Other Ambulatory Visit Summaryon 1 07-01-2022 Ambulatory Visit Summary RUFINO COLLINS :1940 Visit Date:04/30/2023 Ambulatory Visit Instructions Your Diagnosis Incomplete bladder emptying Your Care Team Attending Physician - CARMINA THOMAS PA-C Primary Care Physician - MANAV RAJAN DO This Is Your Medications List busPIRone [...] for choosing us for your care. Normal [facility] C Urineon 04-20-2023 Bacteria identified Cx [...] Locations R1: This test was performed at: [facility], [address] [place] [address], [facility]- , [place], Normal [facility] Comment on above: Performed By: #### 2 [id number] #### [facility] [address] [place] [address] Ambulatory Visit Summaryon 1 06-18-2022 Ambulatory Visit Summary RUFINO COLLINS :1940 Visit Date:04/17/2023 Ambulatory Visit Instructions Your Diagnosis UTI symptoms Incomplete bladder emptying Kidney stone Tests Performed Urnls Dip Stick Auto w/o Microscopy POC 10219 Your Care Team Attending Physician - PEEWEE Luna APRN, Roseann Giron Primary Care Physician - MANAV RAJAN DO This Is Your Medications List cephalexin [...] 11:00 AM EST Where: [facility] Patient Educationon 04-17-20 Patient Education Nephrology Dietary [...] Spinach (cooked), rhubarb, beets, sweet potatoes, and Guamanian chard. ? Peanuts. ? Potato chips, eritrean fries, and baked potatoes with skin on. ? Nuts and nut products. ? Chocolate. ? If you regularly take a diuretic medicine, make sure to eat at least 1 or 2 servings of fruits or vegetables that are high in potassium each day. These include: ? Avocado. ? Banana. ? Hydro, prune, carrot, or tomato juice. ? Baked [...] fish oil, or vitamin B6. ? Take micz-keh-jcyevri and prescription medicines only as told by your health care provider. These include supplements. What foods sh (more content not included)... Normal [facility] Urology Office/Clinic Noteon 04-17-2023 Urology Office/Clinic [...] removal 10/24/16 KUB 11/20/21 and 11/19/22 at [facility] - negative Pt takes Chlorthalidone 25mg 1/2 tab 1-2 times week, rather than daily due to SEs. Tolerating 1/2 dose well. Continue. Denies any signs of stone passage. -Pt is to get KUB done prior to her 2 yr appt 11/2024. -Will send refills for Chlorthalidone 25mg to pharmacy on file. Follow-up With When Contact PEEWEE Hutchins APRN, Roseann Giron, RUDY, URL Additional Instructions: Pending sxs after abx course. Patient Education Dietary Guidelines to Help Prevent Kidney Stones IOfelia, personally scribed for Roseann VIDES on 04/17/2023 10:09:31. . Documentation recorded by the wilber Dietrich accurately reflects the services(s) I performed and decisions made by me. Authenticated by Roseann Luna APRN, FNP-C on 04/17/2023 10:13:37. Problem List/Past Medical History Ongoing Anxiety Depression Diabetes mellitus Diverticulosis Gastroesophageal reflux Hypertension Hypothyroidism Incomplete bladder emptying Kidney stone Leaking of urine M (more content not included)... 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] 05/16/2009 Osteoarth NOS-l/leg [IPD3963] 05/29/2010 S/P TKR (total knee replacement) using cement [*02/05/2011 Hypothyroidism [E03.9] 02/26/2015 Hypertension [I10] 02/26/2015 Dyspnea on exertion [R06.09] 02/26/2015 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] 02/26/2015 Bradycardia [R00.1] 02/26/2015 Pulmonary embolus (HCC) [I26.99] 03/02/2015 Dysthymia [F34.1] 07/22/2016 Carpal tunnel syndrome of right wrist [G56.01] 05/30/2020 Encounter Status:Closed by TAMRA GREWAL on 04/16/23 Normal [facility] [id number] 04-16-2023 ECG01 Ventricular Rate : 8 0 BPM Atrial Rate : 80 BPM P-R Interval : 154 ms QRS Duration : 172 ms Q-T Interval : 416 ms QTC Calculation(Bazett) : 479 ms Calculated P Angelica : 60 degrees Calculated R Angelica : -89 degrees Calculated T Angelica : 78 degrees ATRIAL-SENSED VENTRICULAR-PACED RHYTHM ABNORMAL ECG Confirmed by NATO ORONA MD ([id number]) on 04/17/2023 7:18:20 PM NAME : RUFINO COLLINS PID : [id number] : 1940 Gender : Female Race : [...] : Niall Grewal Acquired by : , Marisol [facility] No Panel Informationon 04-16 BLANK _ [facility] Implant Date 02/27/2015 [facility] inic Model 2088TC Tendril STS [facility] PACEMAKER CLINIC CHECKon AMS Fallback Rate (bpm) 70 {beats}/min [facility] AV Delay Adaptive Paced Minimum (ms) 150 ms [facility] AV Delay Adaptive Rate Maximum (bpm) 120 {beats}/min [facility] AV Delay Adaptive Rate Minimum (bpm) 90 {beats}/min [facility] AV Delay Adaptive Sensed Minimum (ms) 130 ms [facility] in AV Delay Adaptive Status Medium [facility] [facility] AV Delay Paced (ms) 100 ms [facility] AV Delay Sensed (ms) 100 ms [facility] Battery Voltage (volts) 2.89 V [facility] Dirk RA Pacing Amplitude (volts) 2.0 V [facility] Dirk RA Pacing Polarity BI [facility] Dirk RA Pacing Pulse Width (ms) 0.5 ms [facility] c Dirk RA Sensing Blanking Period (ms) 150 ms [facility] Dirk RA Sensing Polarity BI [facility] Dirk RA Sensing Refractory Period (ms) 190 ms [facility] Dirk RV Pacing Amplitude (volts) 1.375 [facility] Dirk RV Pacing Polarity BI [facility] Dirk RV Pacing Pulse Width (ms) 0.5 ms [facility] Dirk RV Sensing Amplitude (mvolts) 2.0 mV [facility] favian Dirk RV Sensing Blanking Period (ms) 44 ms [facility] Dirk RV Sensing Polarity BI [facility] Dirk RV Sensing Refractory Period (ms) 250 ms [facility] Hysteresis Rate (bpm) Off [facility] Lead1 Mfg STJ [facility] Lead2 Mfg STJ [facility] ic Location RA [facility] Location RV [facility] Lower Rate (bpm) 60 {beats}/min [facility] Max Sensor Rate (bmp) 120 {beats}/min [facility] Model 2240 Assurity [facility] Pacemaker Dependent? YES [facility] Pacing Mode DDD [facility] PM-Percent Pacing (A) 6.3 % [facility] PM-Percent Pacing (V) 99.96 % [facility] PM-PMT Intervention Atrial Pace [facility] PM-PVC Intervention Off [facility] PM-Rate Modulation Acceleration Reaction Fast [facility] PM-Rate Modulation Deceleration Medium [facility] PM-Rate Modulation [place] Auto (+2) [facility] PM-Rate Modulation Threshold Auto (+0.0) [facility] Rhythm Sinus rhythm with complete heart block [facility] Serial Number [id number] [facility] Serial Number [id number] [facility] Serial Number [id number] [facility] linic Thresh RA Capture Amplitude (volts) 1.0 V [facility] Thresh RA Capture Duration (ms) 0.5 ms [facility] Thresh RA Sensing Amplitude (mvolts) 0.7 mV [facility] favian Thresh RV Capture Amplitude (volts) 1.25 V [facility] Thresh RV Capture Duration (ms) 0.5 ms [facility] Thresh RV Sensing Amplitude (mvolts) 12.0 mV [facility] Tracking Rate (bpm) 120 {beats}/min [facility] Lab Reportson 04-15-2023 Lab Reports [id number] Normal [facility] UA RANDOM W/MICROSCOPICon Clarity (U) CLEAR CLEAR [employer] Other Color (U) DK. ORANGE YELLOW [employer] Other Ketones Ql (U) COLOR INTERFERENCE mg/dL Abnormal NEGATIVE mg/dL [employer] Other Leukocyte esterase Test strip Ql (U) COLOR INTERFERENCE Abnormal NEGATIVE [employer] Other UA RANDOM W/MICROSCOPIC 20-50 #/HPF Abnormal NONE SEEN #/HPF [employer] Other UA RANDOM W/MICROSCOPIC 5-10 #/HPF Abnormal 0-2 #/HPF [employer] Other UA RANDOM W/MICROSCOPIC see note [employer] Other UA RANDOM W/MICROSCOPIC 1.010 1.005-1.025 [employer] Other UA RANDOM W/MICROSCOPIC COLOR INTERFERENCE Abnormal NEGATIVE [employer] Other UA RANDOM W/MICROSCOPIC COLOR INTERFERENCE mg/dL Abnormal NEGATIVE mg/dL [employer] Other UA RANDOM W/MICROSCOPIC COLOR INTERFERENCE EU/dL Abnormal 0.2-1.0 EU/dL [employer] Other UA RANDOM W/MICROSCOPIC SMALL #/HPF Abnormal NONE SEEN #/HPF [employer] Other UA RANDOM W/MICROSCOPIC NONE SEEN NONE SEEN [employer] Other UA RANDOM W/MICROSCOPIC FEW #/LPF Abnormal NONE/RARE #/LPF [employer] Other UA RANDOM W/MICROSCOPIC Seen #/HPF Abnormal None Seen #/HPF [employer] Other UA RANDOM W/MICROSCOPIC NONE SEEN #/LPF NONE SEEN #/LPF [employer] Other UA RANDOM W/MICROSCOPIC RARE [employer] Other UA RANDOM W/MICROSCOPIC ALREADY ORDERED [employer] Other No Panel Informationon 04-05 BLANK _ [facility] ic Implant Date 02/27/2015 [facility] inic Model 2088TC [facility] PAC[facility] REMOTE CHECKon AV Delay Adaptive Paced Minimum (ms) 150 ms [facility] AV Delay Adaptive Sensed Minimum (ms) 130 ms [facility] in AV Delay Paced (ms) 100 ms [facility] AV Delay Sensed (ms) 100 ms [facility] Battery Voltage (volts) 2.89 V [facility] Dirk RA Pacing Amplitude (volts) 1.875 [facility] Dirk RA Pacing Polarity BI [facility] Dirk RA Pacing Pulse Width (ms) 0.5 ms [facility] Dirk RA Sensing Amplitude (mvolts) 0.4 mV [facility] favian Dirk RA Sensing Polarity BI [facility] Dirk RV Pacing Amplitude (volts) 1.375 [facility] Dirk RV Pacing Polarity BI [facility] Dirk RV Pacing Pulse Width (ms) 0.5 ms [facility] Dirk RV Sensing Amplitude (mvolts) 2.0 mV [facility] favian Dirk RV Sensing Polarity BI [facility] Lead1 Mfg STJ [facility] ic Lead2 Mfg STJ [facility] ic Location RA [facility] Location RV [facility] Lower Rate (bpm) 60 {beats}/min [facility] Max Sensor Rate (bmp) 120 {beats}/min [facility] Model 2240 Assurity [facility] linic Pacing Mode DDD [facility] PM-Device Mfg STJ [facility] linic PM-Percent Pacing (A) 7.7 % [facility] PM-Percent Pacing (V) 99.0 % [facility] RA Bipolar Impedance ohms 480 ohm [facility] RV Bipolar Impedance ohms 930 ohm [facility] Serial Number [id number] [facility] linic Serial Number [id number] [facility] linic Serial Number [id number] [facility] linic Thresh RA Capture Amplitude (volts) 0.875 V [facility] ic Thresh RA Capture Duration (ms) 0.5 ms [facility] Thresh RA Sensing Amplitude (mvolts) 0.5 mV [facility] Thresh RV Capture Amplitude (volts) 1.125 V [facility] ic Thresh RV Capture Duration (ms) 0.5 ms [facility] Thresh RV Sensing Amplitude (mvolts) 12.0 mV [facility] fav[facility] Tracking Rate (bpm) 120 {beats}/min [facility] Urinalysis - DIPSTICKon - Appearance (U) clear [employer] Other Bilirubin Ql (U) Negative [employer] Other Color (U) yellow [employer] Other Glucose Ql (U) Negative [employer] Other Hemoglobin Ql (U) Negative [employer] Other Ketones Ql (U) Negative [employer] Other Leukocyte esterase Test strip Ql (U) + [employer] Other Nitrite Ql (U) Negative [employer] Other pH (U) 5.0 [pH] [employer] Other Protein Ql (U) Negative [employer] Other Specific gravity (U) [Rel density] 1.015 [employer] Other Urobilinogen (U) [Mass/Vol] off chart [employer] Other Urinalysis - DIPSTICK [employer] Other CNPOPHTHONIX 02-06-2023 [facility] Telephone ([employer]) RUFINO COLLINS ([id number]) 1940 F Date Time Provider Department 02/06/23 TAMRA GREWAL During your visit today, we recorded the following information about you: Shirin Khan RN 02/06/2023 12:49 PM Signed Spoke with [...] Upset Date Reviewed: 08/20/2022 Reviewed by: Alycia Raygoza LPN - Fully Assessed Reason for Visit: Patient Update [1234] Appointment [186] Cmt: Patient miss a phone call from the [facility] and would like to reschedul her remote check. 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] 02/26/2015 Bradycardia [R00.1] 02/26/2015 Pulmonary embolus (HCC) [I26.99] 03/02/2015 Dysthymia [F34.1] 07/22/2016 Carpal tunnel syndrome of right wrist [G56.01] 05/30/2020 Encounter Status:Closed by SHIRIN KHAN RN on 02/06/23 Normal [facility] No Panel Informationon 01-30 BLANK _ [facility] ic Implant Date 02/27/2015 [facility] inic Model 2088TC Tendril STS [facility] PACEMAKER REMOTE CHECKon AV Delay Adaptive Paced Minimum (ms) 150 ms [facility] AV Delay Adaptive Sensed Minimum (ms) 130 ms [facility] inic AV Delay Paced (ms) 100 ms [facility] AV Delay Sensed (ms) 100 ms [facility] Battery Voltage (volts) 2.9 V [facility] Dirk RA Pacing Amplitude (volts) 2.0 V [facility] ic Dirk RA Pacing Polarity BI [facility] Dirk RA Pacing Pulse Width (ms) 0.5 ms [facility] c Dirk RA Sensing Amplitude (mvolts) 0.4 mV [facility] Dirk RA Sensing Polarity BI [facility] Dirk RV Pacing Amplitude (volts) 1.75 V [facility] Dirk RV Pacing Polarity BI [facility] Dirk RV Pacing Pulse Width (ms) 0.5 ms [facility] c Dirk RV Sensing Amplitude (mvolts) 2.0 mV [facility] favian Dirk RV Sensing Polarity BI [facility] Lead1 Mfg STJ [facility] ic Lead2 Mfg STJ [facility] ic Location RA [facility] Location RV [facility] Lower Rate (bpm) 60 {beats}/min [facility] Max Sensor Rate (bmp) 120 {beats}/min [facility] Model 2240 Assurity [facility] lin Pacing Mode DDD [facility] favian PM-Device Mfg [facility] linic PM-Percent Pacing (A) 5.8 % [facility] PM-Percent Pacing (V) 99.0 % [facility] RA Bipolar Impedance ohms 460 ohm [facility] RV Bipolar Impedance ohms 940 ohm [facility] Serial Number [id number] [facility] linic Serial Number [id number] [facility] linic Serial Number [id number] [facility] Thresh RA Capture Amplitude (volts) 1.0 V [facility] ic Thresh RA Capture Duration (ms) 0.5 ms [facility] Thresh RA Sensing Amplitude (mvolts) 1.5 mV [facility] favian Thresh RV Capture Amplitude (volts) 1.5 V [facility] Thresh RV Capture Duration (ms) 0.5 ms [facility] Thresh RV Sensing Amplitude (mvolts) 12.0 mV [facility] favian Tracking Rate (bpm) 120 {beats}/min [facility] No Panel Informationon 01-22 BLANK _ [facility] ic Implant Date 02/27/2015 [facility] in Model 2088TC Tendril STS [facility] PACEMAKER REMOTE CHECKon AV Delay Adaptive Paced Minimum (ms) 150 ms [facility] favian AV Delay Adaptive Sensed Minimum (ms) 130 ms [facility] in AV Delay Paced (ms) 100 ms [facility] AV Delay Sensed (ms) 100 ms [facility] Battery Voltage (volts) 2.9 V [facility] Dirk RA Pacing Amplitude (volts) 2.0 V [facility] ic Dirk RA Pacing Polarity BI [facility] Dirk RA Pacing Pulse Width (ms) 0.5 ms [facility] c Dirk RA Sensing Amplitude (mvolts) 0.4 mV [facility] favian Dirk RA Sensing Polarity BI [facility] Dirk RV Pacing Amplitude (volts) 1.625 [facility] ic Dirk RV Pacing Polarity BI [facility] Dirk RV Pacing Pulse Width (ms) 0.5 ms [facility] c Dirk RV Sensing Amplitude (mvolts) 2.0 mV [facility] favian Dirk RV Sensing Polarity BI [facility] Lead1 Mfg STJ [facility] ic Lead2 Mfg STJ [facility] ic Location RA [facility] Location RV [facility] Lower Rate (bpm) 60 {beats}/min [facility] Max Sensor Rate (bmp) 120 {beats}/min [facility] Model 2240 Assurity [facility] linic Pacing Mode DDD [facility] PM-Device Mfg STJ [facility] linic PM-Percent Pacing (A) 5.4 % [facility] PM-Percent Pacing (V) 99.0 % [facility] RA Bipolar Impedance ohms 460 ohm [facility] RV Bipolar Impedance ohms 860 ohm [facility] Serial Number [id number] [facility] linic Serial Number [id number] [facility] linic Serial Number [id number] [facility] linic Thresh RA Capture Amplitude (volts) 1.0 V [facility] ic Thresh RA Capture Duration (ms) 0.5 ms [facility] Thresh RA Sensing Amplitude (mvolts) 0.7 mV [facility] favian Thresh RV Capture Amplitude (volts) 1.375 V [facility] ic Thresh RV Capture Duration (ms) 0.5 ms [facility] Thresh RV Sensing Amplitude (mvolts) 12.0 mV [facility] favian Tracking Rate (bpm) 120 {beats}/min [facility] Patient Educationon 11-26-19 Patient Education Nephrology Dietary [...] Spinach (cooked), rhubarb, beets, sweet potatoes, and [place]ian chard. ? Peanuts. ? Potato chips, eritrean fries, and baked potatoes with skin on. ? Nuts and nut products. ? Chocolate. ? If you regularly take a diuretic medicine, make sure to eat at least 1 or 2 servings of fruits or vegetables that are high in potassium each day. These include: ? Avocado. ? Banana. ? Hydro, prune, carrot, or tomato juice. ? Baked [...] fish oil, or vitamin B6. ? Take dbfm-djk-lmdslit and prescription medicines only as told by your health care provider. These include supplements. What foods should I limit? Limit your in (more content not included)... Normal [facility] Reminderson 11-25-2022 Reminders - From: Lidia Smith To: ANGI Michel; Sent: 11/25/2022 14:28:14 EDT Show up: 09/25/2024 14:27:00 EDT Subject: KUB Reminder Message Please Remember to:_have pt get KUB prior to next appt (follow up in 2 years from 11/25/22). Normal [facility] Urology Office/Clinic Noteon 11-25-2022 Urology Office/Clinic [...] and history for this patient from Dr. Michel. I have reviewed and verified the staff [...] removal 10/2016 KUB 11/20/21 and 11/19/22 at [facility] - negative Pt takes Chlorthalidone 25mg [...] [facility] [address], [place] [address] [id number] Additional Instructions: 2 years with KUB Patient Education Dietary Guidelines to Help Prevent Kidney Stones ILidia, personally scribed for Dr. Michel on 11/25/2022 14:26:59. . Documentation recorded by the scribeLidia, accurately reflects the services(s) I performed and decisions made by me. Authenticated by Dr. Michel on 11/25/2022 14:27:57. Problem List/Past Medical History [...] Nitrite Urine Dipstick: Negative (11/25/22 13:15:00) Specific [place] Urine Dipstick: 1.015 (11/25/22 13:15:00) Urine Appearance Urine Dipstick: Clear (11/25/22 13:15:00) Urine Color Urine Dipstick: Yellow (11/25/22 13:15:00) Urobilinogen Urine Dipstick: Normal 0.2-1 EU/dl (11/25/22 13:15:00) pH Urine Dipstick: 6 (11/25/22 (more content not included)... [facility] Comment on above: Result Comment: Elec tronically Signed By: Natalie MICHEL MD\.br\Date and Time Signed: 11/25/22 14:28 EDT\.br\Electronically Co-Signed By: Lidia Smith\.br\Date and Time Co-Signed: 11/25/22 14:27 EDT RAD - MISCon 11-22-2022 RAD - MIS [id number] .00CD:127 [facility] MIS [id number] .00CD:127 [facility] CNPNon 10-17-2022 CNPN Telephone (NEURAV) RUFINO COLLINS ([id number]) 1940 F Date Time Provider Department 10/17/22 RACHID ODELL NEURYOSVANY During your visit today, we recorded the following information about you: Evelio Hernandezker 10/17/2022 11:23 AM Signed Rufino Collins called today. : 1940 Allergies: Moxifloxacin, Percocet [Oxycodone-Acetaminop hen], Capsaicin, Pravachol [Pravastatin Sodium], Cephalexin, Clavulanic Acid, Flagyl [Metronidazole], Hot Peppers [Other], Levofloxacin, and Sulfa (Sulfonamide Antibiotics) (home) [phone] (cell) Reason for call: Patient says that she is doing well on the Nortriptyline 10 MG and is requesting that a 90 day prescription be sent over to her pharmacy. Pharmacy has been confirmed as the [facility] in [facility]. She says that she is picking up the last of her 30 day supply today. She would like a call on her home phone if this can be sent in and/or if there is any questions. Patient last appointment: 08/20/2022 The patients preferred pharmacy has been captured for this encounter? 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] 02/26/2015 Bradycardia [R00.1] 02/26/2015 Pulmonary embolus (HCC) [I26.99] 03/02/2015 Dysthymia [F34.1] 07/22/2016 Carpal tunnel syndrome of right wrist [G56.01] 05/30/2020 Encounter Status:Closed by EVELIO CASTILLO on 10/17/22 Normal [facility] No Panel Informationon 10-09 BLANK _ [facility] ic Implant Date 02/27/2015 [facility] in Model 2088TC [facility]endril STS [facility] PACEM[facility]ER REMOTE CHECKon AV Delay Adaptive Paced Minimum (ms) 150 ms [facility] favian AV Delay Adaptive Sensed Minimum (ms) 130 ms [facility] in AV Delay Paced (ms) 100 ms [facility] AV Delay Sensed (ms) 100 ms [facility] Battery Voltage (volts) 2.9 V [facility] Dirk RA Pacing Amplitude (volts) 2.0 V [facility] ic Dirk RA Pacing Polarity BI [facility] Dirk RA Pacing Pulse Width (ms) 0.5 ms [facility] c Dirk RA Sensing Amplitude (mvolts) 0.4 mV [facility]ian Dirk RA Sensing Polarity BI [facility] Dirk RV Pacing Amplitude (volts) 1.5 V [facility] ic Dirk RV Pacing Polarity BI [facility] Dirk RV Pacing Pulse Width (ms) 0.5 ms [facility] c Dirk RV Sensing Amplitude (mvolts) 2.0 mV [facility] favian Dirk RV Sensing Polarity BI [facility] Lead1 Mfg STJ [facility] ic Lead2 Mfg STJ [facility] ic Location RA [facility] ic Location RV [facility] Lower Rate (bpm) 60 {beats}/min [facility] Max Sensor Rate (bmp) 120 {beats}/min [facility] Model 2240 Assurity [facility] linic Pacing Mode DDD [facility] favian PM-Device Mfg STJ [facility] linic PM-Percent Pacing (A) 5.1 % [facility] PM-Percent Pacing (V) 99.0 % [facility] RA Bipolar Impedance ohms 460 ohm [facility] RV Bipolar Impedance ohms 860 ohm [facility] Serial Number [id number] [facility]inic Serial Number [id number] [facility] linic Serial Number [id number] [facility] linic Thresh RA Capture Amplitude (volts) 1.0 V [facility] ic Thresh RA Capture Duration (ms) 0.5 ms [facility] Thresh RA Sensing Amplitude (mvolts) 0.5 mV [facility] favian Thresh RV Capture Amplitude (volts) 1.25 V [facility] ic Thresh RV Capture Duration (ms) 0.5 ms [facility] Thresh RV Sensing Amplitude (mvolts) 12.0 mV [facility] favian Tracking Rate (bpm) 120 {beats}/min [facility] APTTon 07-12-2022 aPTT Coag (Bld) [Time] 29.9 s [facility] Comment on above: Effective 03/15/2020: Heparin Therapeutic Range: 64.0 98.0 seconds. Brain Natriuretic Peptideon 07-12-2022 Natriuretic peptide B (Bld) [Mass/Vol] 265 pg/mL [facility] Comment on above: NT-pro BNP ACUTE Int [...] Basophils (Bld) [#/Vol] 0.1 10*3/uL Normal 0.0-0.2 [facility] Comment on above: Performed By: #### C BCWD #### [facility] [address] [place] [address] Basophils/100 WBC (Bld) 1.3 % Normal [facility] Comment on above: Performed By: #### C BCWD #### [facility] [address] [place] [address] Eosinophils (Bld) [#/Vol] 0.1 10*3/uL Normal 0.0-0.7 [facility] Comment on above: Performed By: #### C BCWD #### [facility] [address] [place] [address] Eosinophils/100 WBC (Bld) 1.7 % Normal [facility] Comment on above: Performed By: #### C BCWD #### [facility] [address] [place] [address] Erythrocyte distribution width (RBC) [Ratio] 14.0 % Normal 11.5-14.5 [facility] Comment on above: Performed By: #### C BCWD #### [facility] [address] [place] [address] Hematocrit (Bld) [Volume fraction] 43.9 % Normal 37.0-47.0 [facility] Comment on above: Performed By: #### C BCWD #### [facility] [address] [place] [address] Hemoglobin (Bld) [Mass/Vol] 14.7 g/dL Normal 12.0-16.0 [facility] Comment on above: Performed By: #### C BCWD #### [facility] [address] [place] [address] Lymphocytes (Bld) [#/Vol] 2.6 10*3/uL Normal 1.0-4.8 [facility] Comment on above: Performed By: #### C BCWD #### [facility] [address] [place] [address] Lymphocytes/100 WBC (Bld) 35.3 % Normal [facility] Comment on above: Performed By: #### C BCWD #### [facility] [address] [place] [address] MCH (RBC) [Entitic mass] 29.8 pg Normal 27.0-31.3 [facility] Comment on above: Performed By: #### C BCWD #### [facility] [address] [place] [address] MCHC 33.4 % Normal 33.0-37.0 [facility] Comment on above: Performed By: #### C BCWD #### [facility] [address] [place] [address] MCV (RBC) [Entitic vol] 89.3 fL Normal 79.4-94.8 [facility] Comment on above: Performed By: #### C BCWD #### [facility] [address] [place] [address] Monocytes (Bld) [#/Vol] 0.6 10*3/uL Normal 0.2-0.8 [facility] Comment on above: Performed By: #### C BCWD #### [facility] [address] [place] [address] Monocytes/100 WBC (Bld) 8.4 % Normal [facility] Comment on above: Performed By: #### C BCWD #### [facility] [address] [place] [address] Neutrophils (Bld) [#/Vol] 4.0 10*3/uL Normal 1.4-6.5 [facility] Comment on above: Performed By: #### C BCWD #### [facility] [address] [place] [address] Neutrophils/100 WBC (Bld) 53.3 % Normal [facility] Comment on above: Performed By: #### C BCWD #### [facility] [address] [place] [address] Platelets (Bld) [#/Vol] 238 10*3/uL Normal 130-400 [facility] Comment on above: Performed By: #### C BCWD #### [facility] [address] [place] [address] RBC (Bld) [#/Vol] 4.91 10*6/uL Normal 4.20-5.40 [facility] Comment on above: Performed By: #### C BCWD #### [facility] [address] [place] [address] WBC (Bld) [#/Vol] 7.4 10*3/uL Normal 4.8-10.8 [facility] Comment on above: Performed By: #### C BCWD #### [facility] [address] [place] [address] CBC with Auto Differentialon 07-12-2022 Basophils (Bld) [#/Vol] 0.1 10*3/uL 0.0 - 0.2 K/uL [facility] Basophils/100 WBC (Bld) 1.3 % [facility] Eosinophils (Bld) [#/Vol] 0.1 10*3/uL 0.0 - 0.7 K/uL [facility] Eosinophils/100 WBC (Bld) 1.7 % [facility] Hematocrit (Bld) [Volume fraction] 43.9 % 37.0 - 47.0 % [facility] Hemoglobin (Bld) [Mass/Vol] 14.7 g/dL 12.0 - 16.0 g/dL [facility] Lymphocytes (Bld) [#/Vol] 2.6 10*3/uL 1.0 - 4.8 K/uL [facility] Lymphocytes/100 WBC (Bld) 35.3 % [facility] MCH (RBC) [Entitic mass] 29.8 pg 27.0 - 31.3 pg [facility] MCHC (RBC) [Mass/Vol] 33.4 % 33.0 - 37.0 % [facility] MCV (RBC) [Entitic vol] 89.3 fL 79.4 - 94.8 fL [facility] Monocytes (Bld) [#/Vol] 0.6 10*3/uL 0.2 - 0.8 K/uL [facility] Monocytes/100 WBC (Bld) 8.4 % [facility] Neutrophils Absolute 4.0 K/uL 1.4 - 6.5 K/uL [facility] Neutrophils/100 WBC (Bld) 53.3 % [facility] Platelet distribution width (Bld) [Ratio] 14.0 % 11.5 - 14.5 % [facility] Platelets (Bld) [#/Vol] 238 10*3/uL 130 - 400 K/uL [facility] RBC (Bld) [#/Vol] 4.91 10*6/uL [facility] WBC (Bld) [#/Vol] 7.4 10*3/uL 4.8 - 10.8 K/uL [facility] CKon 07-12-2022 CK [Catalytic activity/Vol] 29 U/L 0 - 170 U/L [facility] Comprehensive Metabolic Pane annalise 07-12-2022 Anion gap [Moles/Vol] 11 mmol/L Normal 9-15 [facility] Comment on above: Performed By: #### C BCWD #### [facility] [address] [place] [address] Chloride [Moles/Vol] 102 mmol/L Normal 95-107 [facility] Comment on above: Performed By: #### C BCWD #### [facility] [address] [place] [address] Potassium [Moles/Vol] 4.3 mmol/L Normal 3.4-4.9 [facility] Comment on above: Performed By: #### C BCWD #### [facility] [address] [place] [address] Sodium [Moles/Vol] 139 mmol/L Normal 135-144 [facility] Comment on above: Performed By: #### C BCWD #### [facility] [address] [place] [address] Albumin [Mass/Vol] 3.9 g/dL Normal 3.5-4.6 [facility] Comment on above: Performed By: #### C BCWD #### [facility] [address] [place] [address] ALP [Catalytic activity/Vol] 81 U/L Normal 40-130 [facility] Comment on above: Performed By: #### C BCWD #### [facility] [address] [place] [address] ALT [Catalytic activity/Vol] 10 U/L Normal 0-33 [facility] Comment on above: Performed By: #### C BCWD #### [facility] [address] [place] [address] AST [Catalytic activity/Vol] 14 U/L Normal 0-35 [facility] Comment on above: Performed By: #### C BCWD #### [facility] [address] [place] [address] Bilirubin [Mass/Vol] 0.3 mg/dL Normal 0.2-0.7 [facility] Comment on above: Performed By: #### C BCWD #### [facility] [address] [place] [address] Calcium [Mass/Vol] 9.6 mg/dL Normal 8.5-9.9 [facility] Comment on above: Performed By: #### C BCWD #### [facility] [address] [place] [address] CO2 [Moles/Vol] 26 mmol/L Normal 20-31 [facility] Comment on above: Performed By: #### C BCWD #### [facility] [address] [place] [address] Creatinine [Mass/Vol] 0.78 mg/dL Normal 0.50-0.90 [facility] Comment on above: Performed By: #### C BCWD #### [facility] [address] [place] [address] GFR >60.0 Normal >60 [facility] Comment on above: Result Comment: Osman [...] secretion. Performed By: #### C BCWD #### [facility] [address] [place] [address] Globulin (S) [Mass/Vol] 3.1 g/dL Normal 2.3-3.5 [facility] Comment on above: Performed By: #### C BCWD #### [facility] [address] [place] [address] Glucose [Mass/Vol] 135 mg/dL Critically high 70-99 [facility] Comment on above: Performed By: #### C BCWD #### [facility] [address] [place] [address] Protein [Mass/Vol] 7.0 g/dL Normal 6.3-8.0 [facility] Comment on above: Performed By: #### C BCWD #### [facility] [address] [place] [address] Urea nitrogen [Mass/Vol] 14 mg/dL Normal 8-23 [facility] Comment on above: Performed By: #### C BCWD #### [facility] [address] [place] [address] Albumin [Mass/Vol] 3.9 g/dL 3.5 - 4.6 g/dL [facility] ALP (Bld) [Catalytic activity/Vol] 81 U/L 40 - 130 U/L [facility] ALT [Catalytic activity/Vol] 10 U/L 0 - 33 U/L [facility] Anion gap [Moles/Vol] 11 mmol/L [facility] AST [Catalytic activity/Vol] 14 U/L 0 - 35 U/L [facility] Bilirubin [Mass/Vol] 0.3 mg/dL 0.2 - 0.7 mg/dL [facility] Calcium [Mass/Vol] 9.6 mg/dL 8.5 - 9.9 mg/dL [facility] Chloride [Moles/Vol] 102 mmol/L [facility] CO2 [Moles/Vol] 26 mmol/L [facility] Creatinine [Mass/Vol] 0.78 mg/dL 0.50 - 0.90 mg/dL [facility] GFR/1.73 sq M.predicted MDRD (S/P/Bld) [Vol rate/Area] 60 - PINF [facility] Comment on above: Pediatric calculator link [email or web address]://www.kidney.org/professionals/kdoqi/gfr_calculatorped [...] [Mass/Vol] 3.1 g/dL 2.3 - 3.5 g/dL [facility] Glucose [Mass/Vol] 135 mg/dL High 70 - 99 mg/dL [facility] Interpretation and review of laboratory results Abnormal [facility] Potassium [Moles/Vol] 4.3 mmol/L [facility] Protein [Mass/Vol] 7.0 g/dL 6.3 - 8.0 g/dL [facility] Sodium [Moles/Vol] 139 mmol/L [facility] Urea nitrogen (BldV) [Mass/Vol] 14 mg/dL 8 - 23 mg/dL [facility] Creatine Kinaseon 07-12-2022 CK [Catalytic activity/Vol] 29 U/L Normal 0-170 [facility] Comment on above: Performed By: #### C PK #### [facility] [address] [place] [address] Culture, Bloodon 07-12-2022 Microscopic examination of blood, culture ORDER#: [id number] ORDERED BY: KM JASON SOURCE: Blood COLLECTED: 07/12/22 16:42 ANTIBIOTICS AT KASHIF.: RECEIVED : 07/12/22 17:12 Culture, Blood FINAL 07/17/22 20:15 No growth after 5 days of incubation. Normal [facility] Comment on above: Performed By: #### C XBL #### [facility] [address] [place] [address] Culture, Blood 2on 3 Culture, Blood 2 ORDER#: [id number] ORDERED BY: KM JASON SOURCE: Blood COLLECTED: 07/12/22 16:42 ANTIBIOTICS AT KASHIF.: RECEIVED : 07/12/22 17:12 Culture, Blood 2 FINAL 07/17/22 20:15 No growth after 5 days of incubation. Normal [facility] Comment on above: Performed By: #### C XBL2 #### [facility] [address] [place] [address] High Sensitivity CRPon 07-12 High Sensitivity CRP 8.9 mg/L Critically high 0.0-5.0 [facility] Comment on above: Performed By: #### H SCRP #### [facility] [address] [place] [address] High sensitivity CRPon 07-12 CRP High Sensitivity 8.9 mg/L High 0.0 - 5.0 mg/L [facility] Interpretation and review of laboratory results Abnormal [facility] Lactic Acidon 07-12-2022 Lactate [Moles/Vol] 1.0 mmol/L Normal 0.5-2.2 [facility] Comment on above: Performed By: #### L ACID #### [facility] [address] [place] [address] Lactate [Moles/Vol] 1 mmol/L 0.5 - 2. 2 mmol/L [facility] Magnesiumon 07-12-2022 Magnesium [Mass/Vol] 1.9 mg/dL Normal 1.7-2.4 [facility] Comment on above: Performed By: #### C BCWD #### [facility] [address] [place] [address] Magnesium [Mass/Vol] 1.9 mg/dL 1.7 - 2.4 mg/dL [facility] Microscopic Urinalysison Bacteria, UA Negative Negative /HPF [facility] Epithelial Cells, UA 0-2 [facility] Hyaline Casts, UA 0-1 [facility] RBC, UA 0-2 [facility] WBC, UA 0-2 [facility] No Panel Informationon 07-12 [facility] Partial Thromboplastin Timeo n 07-12-2022 aPTT Coag (Bld) [Time] 29.9 s Normal 24.4-36.8 [facility] Comment on above: Result Comment: Effe ctive 03/15/2020: Heparin Therapeutic Range: 64.0 ? 98.0 seconds. Performed By: #### C BCWD #### [facility] [address] [place] [address] Procalcitoninon 07-12-2022 Procalcitonin 0.06 ng/mL Normal 0.00-0.15 [facility] Comment on above: Result Comment: Susp [...] to determine the patient's Mortality Risk Prognosis ([email or web address]-[email or web address]) In healthy neonates, plasma Procalcitonin (PCT) concentrations increase gradually after , reaching peak values at about 24 hours of age then decrease to normal values below 0.5 ng/mL by 48-72 hours of age. Performed By: #### C BCWD #### [facility] [address] [place] [id number] Procalcitonin 0.06 ng/mL 0.00 - 0.15 ng/mL [facility] Comment on above: Suspected Sepsis: Low likelihood [...] to determine the patient's Mortality Risk Prognosis ([email or web address]-mcybxjpmny.[employer]) In healthy neonates, plasma Procalcitonin (PCT) concentrations increase gradually after , reaching peak values at about 24 hours of age then decrease to normal values below 0.5 ng/mL by 48-72 hours of age. Prothrombin Timeon 3 INR Coag (PPP) [Relative time] 1.0 {INR} Normal [facility] Comment on above: Performed By: #### P T #### [facility] [address] [place] [address] PT Coag (PPP) [Time] 13.6 s Normal 12.3-14.9 [facility] Comment on above: Performed By: #### P T #### [facility] [address] [place] [address] Protime-INRon 07-12-2022 INR Coag (Bld) [Relative time] 1.0 {INR} [facility] PT Coag (PPP) [Time] 13.6 s [facility] TSHon 07-12-2022 TSH Qn 1.610 m[IU]/L [facility] TSH w/out Reflexon TSH w/out Reflex 1.610 uIU/mL Normal 0.440-3.86 [facility] Comment on above: Performed By: #### T SH #### [facility] [address] [place] [address] Troponinon 07-12-2022 Troponin I.cardiac [Mass/Vol] ng/mL Normal 0.000-0.01 [facility] Comment on above: Result Comment: Meth odology by Troponin T. Performed By: #### C BCWD #### [facility] [address] [place] [address] Troponin I.cardiac [Mass/Vol] ng/mL 0.000 - 0.010 ng/mL [facility] Comment on above: Methodology by Telma [employer] Urinalysis with Reflex to Cu ltureon 07-12-2022 Bilirubin Urine Negative Negative [facility] Blood, Urine Negative Negative [facility] [employer] Clarity, UA Clear Clear [facility] Color, UA Yellow Straw/Yellow [facility] Glucose, Ur Negative Negative mg/dL [facility] Interpretation and review of laboratory results Abnormal [facility] Ketones Ql (U) Negative Negative mg/dL [facility] Leukocyte esterase Test strip Ql (U) TRACE Abnormal Negative [facility] Nitrite, Urine Negative Negative [facility] pH, UA 5.0 5.0 - 9.0 [facility] Protein, UA Negative Negative mg/dL [facility] Specific [place], UA 1.011 1.005 - 1.030 [facility] Urine Reflex to Culture Not Indicated [facility] Urobilinogen, Urine 0.2 NINF [facility] Urinalysis, reflex to cultur elizabeth 07-12-2022 Urine Reflexed to Culture Not Indicated Normal [facility] Comment on above: Performed By: #### C BCWD #### [facility] [address] [place] [address] Bilirubin Ql (U) Negative Normal Negative [facility] Comment on above: Performed By: #### C BCWD #### [facility] [address] [place] [address] Clarity (U) Clear Normal Clear [facility] Comment on above: Performed By: #### C BCWD #### [facility] [address] [place] [address] Color (U) Yellow Normal Straw/Butte [facility] Comment on above: Performed By: #### C BCWD #### [facility] [address] [place] [address] Glucose Ql (U) Negative Normal Negative [facility] Comment on above: Performed By: #### C BCWD #### [facility] [address] [place] [address] Hemoglobin Ql (U) Negative Normal Negative [facility] Comment on above: Performed By: #### C BCWD #### [facility] [address] [place] [address] Ketones Ql (U) Negative Normal Negative [facility] Comment on above: Performed By: #### C BCWD #### [facility] [address] [place] [address] Leukocyte esterase Test strip Ql (U) TRACE Abnormal Negative [facility] Comment on above: Performed By: #### C BCWD #### [facility] [address] [place] [address] Nitrite Ql (U) Negative Normal Negative [facility] Comment on above: Performed By: #### C BCWD #### [facility] [address] [place] [address] pH (U) 5.0 [pH] Normal 5.0-9.0 [facility] Comment on above: Performed By: #### C BCWD #### [facility] [address] [place] [address] Protein Ql (U) Negative Normal Negative [facility] Comment on above: Performed By: #### C BCWD #### [facility] [address] [place] [address] Specific gravity (U) [Rel density] 1.011 Normal 1.005-1.03 [facility] Comment on above: Performed By: #### C BCWD #### [facility] [address] [place] [address] Urobilinogen Qn (U) 0.2 {Nerissa'U}/dL Normal < 2.0 [facility] Comment on above: Performed By: #### C BCWD #### [facility] [address] [place] [address] Urine Microscopicon 07-13-19 23 Bacteria LM.HPF (Urine sed) [#/Area] Negative Normal Negative [facility] Comment on above: Performed By: #### U DIEGO #### [facility] [address] [place] [address] Urine Epithelial Cells Auto 0-2 Normal 0-5 [facility] Comment on above: Performed By: #### U DIEGO #### [facility] [address] [place] [address] Urine Hyaline Casts Auto 0-1 Normal 0-5 [facility] Comment on above: Performed By: #### U DIEGO #### [facility] [address] [place] [address] Urine RBC Auto 0-2 Normal 0-5 [facility] Comment on above: Performed By: #### U DIEGO #### [facility] [address] [place] [address] Urine WBC Auto 0-2 Normal 0-5 [facility] Comment on above: Performed By: #### U DIEGO #### [facility] [address] [place] [address] XR CHEST (2 VW)on 07-12-2022 XR CHEST [...] Salo Quinteros MD 07/12/22 Final result Normal [facility] No acute process. Mild elevation of right hemidiaphragm. [facility] RADIOLOGY EXAMINATION: TWO XRAY VIEWS OF THE [...] structures are without acute process. [facility] RADIOLOGY Salo Quinteros MD - 07/12/2022 EXAMINATION: [...] acute process. Mild elevation of right hemidiaphragm. [facility] Phone: Radiology Study observation (narrative) [facility] Phone: XR CHEST (2 VW)Ordered By: David Quinteros on 07-12-2022 [facility] [employer] Phone: proBNPon 07-12-2022 Natriuretic peptide B (Bld) [Mass/Vol] 265 pg/mL Normal [facility] Comment on above: Result Comment: NT-p ro [...] 2006;27:330-337 Performed By: #### B NPPR #### [facility] [address] [place] [address] GLYCOHEMOGLOBIN A1Con 2022 ADA RECOMMENDATION SEE BELOW Normal [facility] Comment on above: Result Comment: ADA RECOMMENDED LIMIT 4.0 - 6.0 ADA THERAPEUTIC TARGET < 7.0 ACTION SUGGESTED > 7.0 Performed By: #### A 1C ####[facility] [id number] [place], [place] [address]Na. Eber Kelly Glucose [Mass/Vol] 148 mg/dL Normal [facility] Comment on above: Performed By: #### A 1C ####[facility] [id number] [place], [place] [address]Aa. Eber Kelly HbA1c (Bld) [Mass fraction] 6.8 % Critically high 4.5-6.2 [facility] Comment on above: Performed By: #### A 1C ####[facility] [id number] [place], [place] [address]Lr. Eber Kelly No Panel Informationon 07-03 BLANK _ [facility] Implant Date 02/27/2015 [facility] inic Model 2088TC Tendril ST[facility] PACEMAKER REMOTE CHECKon AV Delay Adaptive Paced Minimum (ms) 150 ms [facility] AV Delay Adaptive Sensed Minimum (ms) 130 ms [facility] in AV Delay Paced (ms) 100 ms [facility] AV Delay Sensed (ms) 100 ms [facility] Battery Voltage (volts) 2.92 V [facility] Dirk RA Pacing Amplitude (volts) 2 V [facility] ic Idrk RA Pacing Polarity BI [facility] Dirk RA Pacing Pulse Width (ms) 0.5 ms [facility] c Dirk RA Sensing Amplitude (mvolts) 0.4 mV [facility] favian Dirk RA Sensing Polarity BI [facility] Dirk RV Pacing Amplitude (volts) 1.5 V [facility] Dirk RV Pacing Polarity BI [facility] Dirk RV Pacing Pulse Width (ms) 0.5 ms [facility] c Dirk RV Sensing Amplitude (mvolts) 2 mV [facility] favian Dirk RV Sensing Polarity BI [facility] Lead1 Mfg STJ [facility] ic Lead2 Mfg STJ [facility] ic Location RA [facility] ic Location RV Serrano [facility] ic Lower Rate (bpm) 60 {beats}/min [facility] Max Sensor Rate (bmp) 120 {beats}/min [facility] Model 2240 [employer]urity [facility] linic Pacing Mode DDD [facility] i favian PM-Device Mfg STJ [facility] linic PM-Percent Pacing (A) 4.4 % [facility] PM-Percent Pacing (V) 99 % [facility] RA Bipolar Impedance ohms 450 ohm [facility] RV Bipolar Impedance ohms 840 ohm [facility] Serial Number [id number] [facility] Serial Number [id number] [facility] Serial Number [id number] [facility] linic Thresh RA Capture Amplitude (volts) 1 V [facility] ic Thresh RA Capture Duration (ms) 0.5 ms [facility] Thresh RA Sensing Amplitude (mvolts) 0.5 mV [facility] favian Thresh RV Capture Amplitude (volts) 1.25 V [facility] ic Thresh RV Capture Duration (ms) 0.5 ms [facility] Thresh RV Sensing Amplitude (mvolts) 12 mV [facility] favian Tracking Rate (bpm) 120 {beats}/min [facility] BNPon 06-29-2022 Natriuretic peptide B (Bld) [Mass/Vol] 214.0 pg/mL Normal <=1,800.[address] [facility] Comment on above: Performed By: #### C MP, BNP, CMADM ####[facility] [id number] [place] [address]Dr. Eber Kelly CARDIAC FRIEDA ADMITon 023 CK [Catalytic activity/Vol] 31 U/L Normal 26-192 [facility] Comment on above: Performed By: #### C MP, BNP, CMADM #### [facility] Laboratory [address] [place] [address] [address] Eber Kelly CK.MB [Mass/Vol] ng/mL Normal <=3.[address] [facility] Comment on above: Performed By: #### C MP, BNP, CMADM #### [facility] [address] [address] [address] Eber Kelly HSTROP 5.2 pg/mL Normal 4.0-51.[address] [facility] Comment on above: Result Comment: CUT- OFF POINTS HAVE BEEN ESTABLISHED BASED ON THE FOURTH UNIVERSAL DEFINITIONS OF MYOCARDIAL INFARCTION. THE UPPER REFERENCE LIMIT (URL) OF TROPONIN, DEFINED THE 99TH PERCENTILE OF cTnI DISTRIBUTION IN A REFERENCE POPULATION, HAS BEEN CONFIRMED THE DECISION THRESHOLD FOR [place] DIAGNOSIS. Performed By: #### C MP, BNP, CMADM #### [facility] [address] [address] [address] Eber Kelly ADELA 44 ng/mL Normal 9-[address] [facility] Comment on above: Performed By: #### C MP, BNP, CMADM #### [facility] [address] [place] [address] Dr. Eber Kelly CBC AUTO DIFFon 06-29-2022 BASO # 0.1 103/ul Normal 0.0-0.1 [facility] Comment on above: Performed By: #### C BC #### [facility] [facility] [address] [place] [address] Dr. Eber Kelly Basophils/100 WBC (Bld) 1.4 % Normal 0.2-2.[address] [facility] Comment on above: Performed By: #### C BC #### [facility] [address] [place] [address] Dr. Eber Kelly EO # 0.2 103/ul Normal 0.0-0.[address] [facility] Comment on above: Performed By: #### C BC #### [facility] [address] [place] [address] Dr. Eber Kelly Eosinophils/100 WBC (Bld) 2.0 % Normal 0.9-7.[address] [facility] Comment on above: Performed By: #### C BC #### [facility] [address] [place] [address] Dr. Eber Kelly Erythrocyte distribution width (RBC) [Ratio] 13.3 % Normal 11.0-15.[address] [facility] Comment on above: Performed By: #### C BC #### [facility] [address] [place] [address] Dr. Eber Kelly Hematocrit (Bld) [Volume fraction] 47.3 % Normal 36.0-48.[address] [facility] Comment on above: Performed By: #### C BC #### [facility] [address] [place] [address] Dr. Eber Kelly Hemoglobin (Bld) [Mass/Vol] 15.8 g/dL Normal 12.0-16.[address] [facility] Comment on above: Performed By: #### C BC #### [facility] [address] [place] [address] Dr. Eber Kelly IG # 0.02 10e3/ul Normal 0.00-0.03 [facility] Comment on above: Performed By: #### C BC #### [facility] [address] [place] [address] Dr. Eber Kelly IG % 0.2 % Normal 0.0-0.5 [facility] Comment on above: Performed By: #### C BC #### [facility] [address] [place] [address] Dr. Eber Kelly LYMPH # 2.4 103/ul Normal 1.2-3.8 [facility] Comment on above: Performed By: #### C BC #### [facility] [address] [place] [address] Dr. Eber Kelly Lymphocytes/100 WBC (Bld) 28.5 % Normal 20.5-60.0 [facility] Comment on above: Performed By: #### C BC #### [facility] [address] [place] [address] Dr. Eber Kelly MANUAL DIFF REQ NO Normal [facility] Comment on above: Performed By: #### C BC #### [facility] [address] [place] [address] Dr. Eber Kelly MCH (RBC) [Entitic mass] 29.2 pg Normal 26.7-34.0 [facility] Comment on above: Performed By: #### C BC #### [facility] [address] [place] [address] Dr. Eber Kelly MCHC (RBC) [Mass/Vol] 33.4 g/dL Normal 29.9-35.[address] [facility] Comment on above: Performed By: #### C BC #### [facility] [address] [place] [address] Dr. Eber Kelly MCV (RBC) [Entitic vol] 87.4 fL Normal 81.0-99.0 [facility] Comment on above: Performed By: #### C BC #### [facility] [address] [place] [address] Dr. Eber Kelly MONO # 0.7 103/ul Normal 0.3-0.8 [facility] Comment on above: Performed By: #### C BC #### [facility] [address] [place] [address] Dr. Eber Kelly Monocytes/100 WBC (Bld) 7.9 % Normal 1.7-12.0 [facility] Comment on above: Performed By: #### C BC #### [facility] [address] [place] [address] Dr. Eber Kelly NEUT # 5.0 103/ul Normal 1.4-6.[address] [facility] Comment on above: Performed By: #### C BC #### [facility] [address] [place] [address] Dr. Eber Kelly Neutrophils/100 WBC (Bld) 60.0 % Normal 43.0-75.0 [facility] Comment on above: Performed By: #### C BC #### [facility] [address] [place] [address] Dr. Eber Kelly Platelet mean volume (Bld) [Entitic vol] 11.0 fL Normal 9.5-13.[address] [facility] Comment on above: Performed By: #### C BC #### [facility] [address] [place] [address] Dr. Eber Kelly PLT 310 103/ul Normal 150-[address] [facility] Comment on above: Performed By: #### C BC #### [facility] [address] [place] [address] Dr. Eber Kelly RBC 5.41 106/ul Critically high 4.20-5.[address] [facility] Comment on above: Performed By: #### C BC #### [facility] [address] [place] [address] Dr. Eber Kelly WBC 8.3 103/ul Normal 4.0-11.[address] [facility] Comment on above: Performed By: #### C BC #### [facility] [address] [place] [address] HEAD WO CONon 02-18-2023 CT HEAD WO CON EXAMINATION: CT HEAD [...] by: JOEY MARLEY Date: 2022-06-29 10:09 Normal [facility] CTA NECK WO W CONon 06-29-19 23 [...] vertebral arteries. Distention Electronically authenticated by: ADIN CONSTANTIN Date: 2022-06-29 11:06 Normal [facility] ER URINE PROFILEon 3 Bilirubin Ql (U) Negative Normal NEGATIVE [facility] Comment on above: Performed By: #### E RUR #### [facility] [address] [place] [address] Dr. Eber Kelly Clarity (U) CLEAR Normal CLEAR [facility] Comment on above: Performed By: #### E RUR #### [facility] [address] [place] [address] Dr. Eber Kelly Color (U) LT. YELLOW Normal YELLOW [facility] Comment on above: Performed By: #### E RUR #### [facility] [address] [place] [address] Dr. Eber HILL A micrscopic examination will be performed if indicated. Normal [facility] Comment on above: Performed By: #### E RUR #### [facility] [address] [place] [address] Dr. Eber Kelly Glucose Ql (U) Negative Normal NEGATIVE [facility] Comment on above: Performed By: #### E RUR #### [facility] [address] [place] [address] Dr. Eber Kelly Hemoglobin Ql (U) Negative Normal NEGATIVE [facility] Comment on above: Performed By: #### E RUR #### [facility] [address] [place] [address] Dr. Eber Kelly Ketones Ql (U) Negative Normal NEGATIVE [facility] Comment on above: Performed By: #### E RUR #### [facility] [address] [place] [address] Dr. Eber Kelly LEUKOCYTES Negative Normal NEGATIVE [facility] Comment on above: Performed By: #### E RUR #### [facility] [address] [place] [address] Dr. Eber Kelly Nitrite Ql (U) Negative Normal NEGATIVE [facility] Comment on above: Performed By: #### E RUR #### [facility] [address] [address] [address] Eber Kelly pH (U) 6.0 [pH] Normal 5-9 [facility] Comment on above: Performed By: #### E RUR #### [facility] [address] [address] [address] Eber Kelly SPEC GRAVITY <=1.005 Abnormal 1.005-<=1.025 [facility] Comment on above: Performed By: #### E RUR #### [facility] [address] [address] [address] Eber Kelly UA PROTEIN Negative Normal NEGATIVE/ TRACE [facility] Comment on above: Performed By: #### E RUR #### [facility] [address] [place] [address] Dr. Eber Kelly UR MICRO IND NOT INDICATED Normal [facility] Comment on above: Performed By: #### E RUR #### [facility] [address] [address] [address] Eber Kelly Urobilinogen Qn (U) 0.2 {Nerissa'U}/dL Normal 0.2 - 1. 0 [facility] Comment on above: Performed By: #### E RUR #### [facility] [address] [place] [address] Dr. Eber Kelly POINT OF CARE GLUCOSEon 06-12 Glucose [Mass/Vol] 156 mg/dL Critically high 74-106 [facility] Comment on above: Performed By: #### P OCGLUC ####[facility] [address] [address]Dr. Eber Kelly PROF 14(COMP METB)on 023 Albumin [Mass/Vol] 3.9 g/dL Normal 3.4-5.0 [facility] Comment on above: Performed By: #### C MP, BNP, CMADM #### [facility] [address] [address] [address] Eber Kelly Albumin/Globulin [Mass ratio] 1.0 {ratio} Normal [facility] Comment on above: Performed By: #### C MP, BNP, CMADM #### [facility] [address] [address] [address] Eber Kelly ALP [Catalytic activity/Vol] 79 U/L Normal 46-116 [facility] Comment on above: Performed By: #### C MP, BNP, CMADM #### [facility] [address] [address] [address] Eber Kelly ALT [Catalytic activity/Vol] 15 U/L Normal 14-59 [facility] Comment on above: Performed By: #### C MP, BNP, CMADM #### [facility] [address] [address] [address] Eber Kelly Anion gap [Moles/Vol] 13.3 mmol/L Normal [facility] Comment on above: Performed By: #### C MP, BNP, CMADM #### [facility] [address] [place] [address] Dr. Eber Kelly AST [Catalytic activity/Vol] 13 U/L Critically low 15-37 [facility] Comment on above: Performed By: #### C MP, BNP, CMADM #### [facility] [address] [place] [address] Dr. Eber Kelly Bilirubin [Mass/Vol] 0.6 mg/dL Normal 0.2-1.0 [facility] Comment on above: Performed By: #### C MP, BNP, CMADM #### [facility] [address] [place] [address] Dr. Eber Kelly Calcium [Mass/Vol] 9.4 mg/dL Normal 8.5-10.1 [facility] Comment on above: Performed By: #### C MP, BNP, CMADM #### [facility] [address] [place] [address] Dr. Eber Kelly Chloride [Moles/Vol] 104 mmol/L Normal 98-107 [facility] Comment on above: Performed By: #### C MP, BNP, CMADM #### [facility] [address] [place] [address] Dr. Eber Kelly CO2 [Moles/Vol] 26.9 mmol/L Normal 21.0-32.0 [facility] Comment on above: Performed By: #### C MP, BNP, CMADM #### [facility] [address] [address] [address] Eebr Kelly Creatinine [Mass/Vol] 0.94 mg/dL Normal 0.55-1.02 [facility] Comment on above: Performed By: #### C MP, BNP, CMADM #### [facility] [address] [address] [address] Eber Kelly EGFR-AF TUVALUAN >60 Normal >=60 [facility] Comment on above: Performed By: #### C MP, BNP, CMADM #### [facility] [address] [place] [address] Dr. Eber Kelly EGFR-NON AF TUVALUAN 57 mL/min/1.73m2 Critically low >=60 [facility] Comment on above: Performed By: #### C MP, BNP, CMADM #### [facility] [address] [place] [address] Dr. Eber Kelly Globulin (S) [Mass/Vol] 4.0 g/dL Normal [facility] Comment on above: Performed By: #### C MP, BNP, CMADM #### [facility] [address] [place] [address] Dr. Eber Kelly Glucose [Mass/Vol] 159 mg/dL Critically high 74-106 [facility] Comment on above: Performed By: #### C MP, BNP, CMADM #### [facility] [address] [place] [address] Dr. Eber Kelly Potassium [Moles/Vol] 4.2 mmol/L Normal 3.5-5.1 [facility] Comment on above: Performed By: #### C MP, BNP, CMADM #### [facility] [address] [place] [address] Dr. Eber Kelly Protein [Mass/Vol] 7.9 g/dL Normal 6.4-8.2 [facility] Comment on above: Performed By: #### C MP, BNP, CMADM #### [facility] [address] [address] [address] Eber Kelly Sodium [Moles/Vol] 140 mmol/L Normal 136-145 [facility] Comment on above: Performed By: #### C MP, BNP, CMADM #### [facility] [address] [address] [address] Eber Kelly Urea nitrogen [Mass/Vol] 14.0 mg/dL Normal 7.0-18.0 [facility] Comment on above: Performed By: #### C MP, BNP, CMADM #### [facility] [address] [address] [address] Eber Kelly Urea nitrogen/Creatinine [Mass ratio] 14.9 mg/mg Normal [facility] Comment on above: Performed By: #### C MP, BNP, CMADM #### [facility] [address] [address] [address] Eber Kelly PROTIMEon 06-29-2022 INR Coag (PPP) [Relative time] 1.05 {INR} Normal [facility] Comment on above: Performed By: #### P TT, PT ####[facility] [address] [place], [place] [address]DrYasmin Kelly INR GUIDELINES SEE BELOW Normal [facility] Comment on above: Result Comment: JULIOCESAR RED INR: 2.0 - 3.0 CONDITIONS NOT LISTED BELOW 2.5 - 3.5 FOR PROSTHETIC HEART VALVE REPLACEMENT 2.5 - 3.5 RECURRENT THROMBOSIS Performed By: #### P TT, PT ####[facility] [address] [address]DrYasmin Kelly PT Coag (PPP) [Time] 11.1 s Normal 9.0-11.[address] [facility] Comment on above: Performed By: #### P TT, PT ####[facility] [address] [place], [place] [address]DrYasmin Kelly PTTon 06-29-2022 aPTT Coag (Bld) [Time] 31.8 s Normal 22.3-36.[address] [facility] Comment on above: Performed By: #### P TT, PT ####[facility] [address] [place], [place] [address]Ee. Eber Kelly XR CHEST 1 Von 06-29-2022 [...] by: ANDREW MONTALVO Date: 2022-06-29 10:06 Normal [facility] No Panel Informationon 05-01 BLANK _ [facility] ic Implant Date 02/27/2015 [facility] inic Model 2088TC Tendril [facility] PACEMAKER CLINIC CHECKon AMS Fallback Rate (bpm) 70 {beats}/min [facility] AV Delay Adaptive Paced Minimum (ms) 150 ms [facility] AV Delay Adaptive Rate Maximum (bpm) 120 {beats}/min [facility] AV Delay Adaptive Rate Minimum (bpm) 90 {beats}/min [facility] favian AV Delay Adaptive Sensed Minimum (ms) 130 ms [facility] in AV Delay Adaptive Status Medium [facility] AV Delay Paced (ms) 100 ms [facility] AV Delay Sensed (ms) 100 ms [facility] Battery Voltage (volts) 2.93 V [facility] Dirk RA Pacing Amplitude (volts) 2 V [facility] ic Dirk RA Pacing Polarity BI [facility] Dirk RA Pacing Pulse Width (ms) 0.5 [facility] Sensing Blanking Period (ms) 150 ms [facility] Dirk RA Sensing Polarity BI [facility] Dirk RA Sensing Refractory Period (ms) 190 ms [facility] Dirk RV Pacing Amplitude (volts) 1.25 V [facility] ic Dirk RV Pacing Polarity BI [facility] Dirk RV Pacing Pulse Width (ms) 0.5 ms [facility] Sensing Amplitude (mvolts) 2 mV [facility] Dirk RV Sensing Blanking Period (ms) 44 ms [facility] Dirk RV Sensing Polarity BI [facility] Dirk RV Sensing Refractory Period (ms) 250 ms [facility] Hysteresis Rate (bpm) Off [facility] Lead1 Mfg STJ [facility] ic Lead2 Mfg STJ [facility] ic Location RA [facility] Location RV [facility] Lower Rate (bpm) 60 {beats}/min [facility] Max Sensor Rate (bmp) 120 {beats}/min [facility] Model 2240 Assurity [facility] lin Pacemaker Dependent? YES [facility] Pacing Mode DDD [facility] favian PM-Device Mfg J [facility] linic PM-Percent Pacing (A) 3.9 % [facility] PM-Percent Pacing (V) 99.98 % [facility] PM-PMT Intervention Atrial Pace [facility] PM-PVC Intervention Off [facility] PM-Rate Modulation Acceleration Reaction Fast [facility] PM-Rate Modulation Deceleration Medium [facility] PM-Rate Modulation [place] Auto (+2) [facility] PM-Rate Modulation Threshold Auto (+0.0) [facility] Rhythm Sinus rhythm with complete heart block [facility] Serial Number [id number] [facility] Serial Number [id number] [facility] lin Serial Number [id number] [facility] lin Thresh RA Capture Amplitude (volts) 1 V [facility] ic Thresh RA Capture Duration (ms) 0.5 ms [facility] Thresh RA Sensing Amplitude (mvolts) 1.4 mV [facility] favian Thresh RV Capture Amplitude (volts) 1 V [facility] Thresh RV Capture Duration (ms) 0.5 ms [facility] Thresh RV Sensing Amplitude (mvolts) 12 mV [facility] favian Tracking Rate (bpm) 120 {beats}/min [facility] No Panel Informationon 04-01 BLANK _ [facility] ic Implant Date 02/27/2015 [facility] inic Model 2088TC Tendril STS [facility] PACEMAKER REMOTE CHECKon AV Delay Adaptive Paced Minimum (ms) 150 ms [facility] favian AV Delay Adaptive Sensed Minimum (ms) 130 ms [facility] in AV Delay Paced (ms) 100 ms [facility] AV Delay Sensed (ms) 100 ms [facility] Battery Voltage (volts) 2.93 V [facility] Dirk RA Pacing Amplitude (volts) 2 V [facility] Dirk RA Pacing Polarity BI [facility] Dirk RA Pacing Pulse Width (ms) 0.5 ms [facility] c Dirk RA Sensing Amplitude (mvolts) 0.4 mV [facility] favian Dirk RA Sensing Polarity BI [facility] Dirk RV Pacing Amplitude (volts) 1.125 [facility] ic Dirk RV Pacing Polarity BI [facility] Dirk RV Pacing Pulse Width (ms) 0.5 ms [facility] c Dirk RV Sensing Amplitude (mvolts) 2 mV [facility] favian Dirk RV Sensing Polarity BI [facility] Lead1 Mfg STJ [facility] ic Lead2 Mfg STJ [facility] ic Location RA [facility] ic Location RV [facility] Lower Rate (bpm) 60 {beats}/min [facility] Max Sensor Rate (bmp) 120 {beats}/min [facility] Model 2240 Assurity [facility] lin Pacing Mode DDD [facility] favian PM-Device Mfg STJ [facility] linic PM-Percent Pacing (A) 4.2 % [facility] PM-Percent Pacing (V) 99 % [facility] RA Bipolar Impedance ohms 450 ohm [facility] RV Bipolar Impedance ohms 850 ohm [facility] Serial Number [id number] [facility] linic Serial Number [id number] [facility] linic Serial Number [id number] [facility] Thresh RA Capture Amplitude (volts) 1 V [facility] ic Thresh RA Capture Duration (ms) 0.5 ms [facility] Thresh RA Sensing Amplitude (mvolts) 0.5 mV [facility] favian Thresh RV Capture Amplitude (volts) 0.875 V [facility] Thresh RV Capture Duration (ms) 0.5 ms [facility] Thresh RV Sensing Amplitude (mvolts) 12 mV [facility] favian Tracking Rate (bpm) 120 {beats}/min [facility] MICROALBUMIN URINEon 022 Albumin, Urine 35.2 ug/mL Normal Not Estab. [facility] Comment on above: Performed By: #### M ALBLC #### [facility] [address] [place], [place] [address] Dr. Eber Kelly CBC AUTO DIFFon 01-07-2022 BASO # 0.1 103/ul Normal 0.0-0.[address] [facility] Comment on above: Performed By: #### C BC ####[facility] [address] [place], [place] [address]IoDr. Eber Kelly Basophils/100 WBC (Bld) 1.1 % Normal 0.2-2.[address] [facility] Comment on above: Performed By: #### C BC ####[facility] [address] [place], [place] [id number]. Eber Kelly EO # 0.2 103/ul Normal 0.0-0.[address] [facility] Comment on above: Performed By: #### C BC ####[facility] [address] [place], [place] [address]Dr. Eber Kelly Eosinophils/100 WBC (Bld) 1.7 % Normal 0.9-7.[address] [facility] Comment on above: Performed By: #### C BC ####[facility] [address] [place], [place] [address]Dr. Eber Kelly Erythrocyte distribution width (RBC) [Ratio] 13.4 % Normal 11.0-15.[address] [facility] Comment on above: Performed By: #### C BC ####[facility] [address] [place], [place] [address]Dr. Eber Kelly Hematocrit (Bld) [Volume fraction] 47.0 % Normal 36.0-48.[address] [facility] Comment on above: Performed By: #### C BC ####[facility] [address] [place], [place] [address]Dr. Eber Kelly Hemoglobin (Bld) [Mass/Vol] 15.5 g/dL Normal 12.0-16.[address] [facility] Comment on above: Performed By: #### C BC ####[facility] [address] [place], [place] [address]Dr. Eber Kelly IG # 0.03 10e3/ul Normal 0.00-0.[address] [facility] Comment on above: Performed By: #### C BC ####[facility] [address] [place], [place] [address]DrYasmin Eber Kelly IG % 0.3 % Normal 0.0-0.[address] [facility] Comment on above: Performed By: #### C BC ####[facility] [address] [place], [place] [address]Dr. Eber Kelly LYMPH # 3.2 103/ul Normal 1.2-3.[address] [facility] Comment on above: Performed By: #### C BC ####[facility] [address] [id number] Francesrobin Kelly Lymphocytes/100 WBC (Bld) 34.4 % Normal 20.5-60.[address] [facility] Comment on above: Performed By: #### C BC ####[facility] [address] [place] [address]DrYasmin Kelly MANUAL DIFF REQ NO Normal The [facility] Comment on above: Performed By: #### C BC ####[facility] [address] [place] [address]Dr. Eber Kelly MCH (RBC) [Entitic mass] 29.1 pg Normal 26.7-34.[address] [facility] Comment on above: Performed By: #### C BC ####[facility] [address] [place] [address]Dr. Eber Kelly MCHC (RBC) [Mass/Vol] 33.0 g/dL Normal 29.9-35.[address] [facility] Comment on above: Performed By: #### C BC ####[facility] [address] [place], [place] [address]DrYasmin Kelly MCV (RBC) [Entitic vol] 88.3 fL Normal 81.0-99.[address] [facility] Comment on above: Performed By: #### C BC ####[facility] [address] [place] [address]DrYasmin Kelly MONO # 0.9 103/ul Critically high 0.3-0.8 The [facility] Comment on above: Performed By: #### C BC ####[facility] [address] [place] [address]DrYasmin Kelly Monocytes/100 WBC (Bld) 9.5 % Normal 1.7-12.[address] [facility] Comment on above: Performed By: #### C BC ####[facility] [address] [place], [place] [address]DrYasmin Kelly NEUT # 4.9 103/ul Normal 1.4-6.[address] [facility] Comment on above: Performed By: #### C BC ####[facility] [address] [place] [address]Dr. Eber Kelly Neutrophils/100 WBC (Bld) 53.0 % Normal 43.0-75.[address] [facility] Comment on above: Performed By: #### C BC ####[facility] [address] [place] [address]Dr. Eber Kelly Platelet mean volume (Bld) [Entitic vol] 10.8 fL Normal 9.5-13.[address] [facility] Comment on above: Performed By: #### C BC ####[facility] Kn[address] [place], [place] [address]Dr. Eber Kelly PLT 305 103/ul Normal 150-[address] [facility] Comment on above: Performed By: #### C BC ####[facility] [address] [place], [place] [address]Dr. Eber Kelly RBC 5.32 106/ul Normal 4.20-5.[address] [facility] Comment on above: Performed By: #### C BC ####[facility] Sl[address] [place], [place] [address]Dr. Eber Kelly WBC 9.3 103/ul Normal 4.0-11.0 [facility] Comment on above: Performed By: #### C BC ####[facility] [address] [place] [address]Dr. Eber Kelly GLYCOHEMOGLOBIN A1Con 2021 ADA RECOMMENDATION SEE BELOW Normal The [facility] Comment on above: Result Comment: ADA RECOMMENDED LIMIT 4.0 - 6.0 ADA THERAPEUTIC TARGET < 7.0 ACTION SUGGESTED > 7.0 Performed By: #### A 1C ####[facility] [address] [place] [address]Dr. Eber Kelly Glucose [Mass/Vol] 154 mg/dL Normal The [facility] Comment on above: Performed By: #### A 1C ####[facility] [address] [place] [address]EmDr. Eber Kelly HbA1c (Bld) [Mass fraction] 7.0 % Critically high 4.5-6.2 [facility] Comment on above: Performed By: #### A 1C ####[facility] [address] [place] [address]Dr. Eber Kelly PROF CHEM 8 (BAS METB)on Anion gap [Moles/Vol] 12.9 mmol/L Normal [facility] Comment on above: Performed By: #### B MP, TSH #### [facility] Laboratory [address] [address] [address] Eber Kelly Calcium [Mass/Vol] 9.4 mg/dL Normal 8.5-10.1 [facility] Comment on above: Performed By: #### B MP, TSH #### [facility] [address] [address] [address] Eber Kelly Chloride [Moles/Vol] 100 mmol/L Normal 98-107 [facility] Comment on above: Performed By: #### B MP, TSH #### [facility] [address] [address] [address] Eber Kelly CO2 [Moles/Vol] 30.0 mmol/L Normal 21.0-32.0 [facility] Comment on above: Performed By: #### B MP, TSH #### [facility] [address] [address] [address] Eber Kelly Creatinine [Mass/Vol] 1.04 mg/dL Critically high 0.55-1.02 [facility] Comment on above: Performed By: #### B MP, TSH #### [facility] [address] [address] [address] Eber Kelly EGFR-AF TUVALUAN >60 Normal >=[address] [facility] Comment on above: Performed By: #### B MP, TSH #### [facility] [address] [address] [address] Eber Kelly EGFR-NON AF TUVALUAN 51 mL/min/1.73m2 Critically low >=[address] [facility] Comment on above: Performed By: #### B MP, TSH #### [facility] [address] [address] [address] Eber Kelly Glucose [Mass/Vol] 160 mg/dL Critically high 74-106 [facility] Comment on above: Performed By: #### B MP, TSH #### [facility] [address] [address] [address] Eber Kelly Potassium [Moles/Vol] 3.9 mmol/L Normal 3.5-5.1 [facility] Comment on above: Performed By: #### B MP, TSH #### [facility] [address] [address] [address] Eber Kelly Sodium [Moles/Vol] 139 mmol/L Normal 136-145 [facility] Comment on above: Performed By: #### B MP, TSH #### [facility] [address] [place] [address] Dr. Eber Kelly Urea nitrogen [Mass/Vol] 21.0 mg/dL Critically high 7.0-18.0 [facility] Comment on above: Performed By: #### B MP, TSH #### [facility] [address] [address] [address] Eber Kelly Urea nitrogen/Creatinine [Mass ratio] 20.2 mg/mg Normal [facility] Comment on above: Performed By: #### B MP, TSH #### [facility] [address] [address] [address] Eber Kelly TSHon 01-07-2022 TSH 4.497 uIU/mL Critically high 0.358-3.740 [facility] Comment on above: Performed By: #### B MP, TSH #### [facility] [address] [address] [address] Eber Kelly No Panel Informationon 12-31 BLANK _ [facility] Date 02/27/2015 [facility] Model 2088TC Tendril ST[facility] PACEMAKER REMOTE CHECKon AV Delay Adaptive Paced Minimum (ms) 150 ms [facility] favian AV Delay Adaptive Sensed Minimum (ms) 130 ms [facility] AV Delay Paced (ms) 100 ms [facility] AV Delay Sensed (ms) 100 ms [facility] Battery Voltage (volts) 2.95 V [facility] Dirk RA Pacing Amplitude (volts) 2 V [facility] Dirk RA Pacing Polarity BI [facility] Dirk RA Pacing Pulse Width (ms) 0.5 ms [facility] Dirk RA Sensing Amplitude (mvolts) 0.4 mV [facility] favian Dirk RA Sensing Polarity BI [facility] Dirk RV Pacing Amplitude (volts) 1.25 V [facility] Dirk RV Pacing Polarity BI [facility] Dirk RV Pacing Pulse Width (ms) 0.5 ms [facility] Dirk RV Sensing Amplitude (mvolts) 2 mV [facility] favian Dirk RV Sensing Polarity BI [facility] Lead1 Mfg STJ [facility] ic Lead2 Mfg STJ [facility] Location RA [facility] Location RV [facility] Lower Rate (bpm) 60 {beats}/min [facility] Max Sensor Rate (bmp) 120 {beats}/min [facility] Model 2240 Assurity [facility] linic Pacing Mode DDD [facility] favian PM-Device Mfg STJ [facility] linic PM-Percent Pacing (A) 4.8 % [facility] PM-Percent Pacing (V) 99 % [facility] RA Bipolar Impedance ohms 460 ohm [facility] RV Bipolar Impedance ohms 860 ohm [facility] Serial Number [id number] [facility] Serial Number [id number] [facility] Serial Number [id number] [facility] Thresh RA Capture Amplitude (volts) 1 V [facility] ic Thresh RA Capture Duration (ms) 0.5 ms [facility] Thresh RA Sensing Amplitude (mvolts) 1 mV [facility] favian Thresh RV Capture Amplitude (volts) 1 V [facility] Thresh RV Capture Duration (ms) 0.5 ms [facility] Thresh RV Sensing Amplitude (mvolts) 12 mV [facility] favian Tracking Rate (bpm) 120 {beats}/min [facility] XR KUB 1 VIEWon 11-20-2021 XR KUB [...] by: MOOK NEFF Date: 2021-11-20 19:[address] [facility] CT CHEST WO IVCONon 07-15-19 CT CHEST WO IVCON * * *Final Report* * *DATE OF EXAM: Jul 14 2017 5:00PM [facility] 0541 - CT CHEST WO IVCON [...] mm image 3:85 of the study of 2015.-Right lung nodules images 22, 29, 30, 46, [...] 15 2017 12:47PDictated by : TANMAY MONROY MDThifabiana examination was interpreted and the report reviewed and electronically signed by: TANMAY MONROY MD on Jul 15 2017 1:08PM [id number] IACN [facility] PROGRESSon 07-14-2017 PROGRESS HNO ID: [id number]: Melissa Pham CTS (Ct)ervice: RadiologyAuthor Type: TechnicianType: Progress NotesFiled: 07/14/2017 4:57 PMNote Text: Radiology Service Progress NotePATIENT NAME: Rufino CollinsMRN: [id number] OF SERVICE: July 14, 2017TIME: 4:57 PMPATIENT IDENTITY VERIFICATION COMPLETED USING TWO (2) METHODS: Patientconfirmed name verbally and ID band matches..PATIENT GENDER DATA: Female. status: : NoBreastfeeding status: NO.PATIENT RELEVANT IMPLANT DATA REVIEWED: YesRADIOLOGY DEPARTMENT: CT; Exam(s) Completed: ChestPERIPHERAL IV DATA: Not applicableSIGNED BY: [facility] 2017 4:57 PM [facility] Vital Signs Date Time Vital Sign Value Performing Clinician Facility 01-09-2024 13:490400 Body height 171.45 cm [facility] 01-09-2024 13:49-0400 Body mass index (BMI) [Ratio] 36.3 kg/m2 [facility] 01-09-2024 13:49040 Body weight 106.65 kg [facility] 01-09-2024 13:49-0400 Diastolic blood pressure 89 mm[Hg] [facility] 01-09-2024 13:49-040 Heart rate 92 /min [facility] 01-09-2024 13:49-0400 Respiratory rate 12 /min [facility] 01-09-2024 13:49-0400 Systolic blood pressure 139 mm[Hg] [facility] 09-03-2023 11:22-0400 Body height 171.45 cm [facility] 09-03-2023 11:22-0400 Body mass index (BMI) [Ratio] 36.6 kg/m2 [facility] 09-03-2023 11:22-0400 Body weight 107.5 kg [facility] 09-03-2023 11:22-0400 Diastolic blood pressure 84 mm[Hg] [facility] 09-03-2023 11:22-0400 Heart rate 90 /min [facility] 09-03-2023 11:22-0400 SaO2% (BldA) [Mass fraction] 97 % [facility] 09-03-2023 11:22-0400 Systolic blood pressure 122 mm[Hg] [facility] 08-22-2023 13:36-0400 Diastolic blood pressure 76 mm[Hg] Rachid Odell MD Work Phone: [facility] 08-22-2023 13:36-0400 Heart rate 78 /min Rachid Odell MD Work Phone: [facility] 08-22-2023 13:36-0400 Systolic blood pressure 143 mm[Hg] Rachid Odell MD Work Phone: [facility] 07-08-2023 13:41-0500 Body height 171.45 cm [facility] 07-08-2023 13:41-0500 Body mass index (BMI) [Ratio] 36.3 kg/m2 [facility] 07-08-2023 13:41-0500 Body weight 106.65 kg [facility] 07-08-2023 13:41-0500 Diastolic blood pressure 83 mm[Hg] [facility] 07-08-2023 13:41-0500 Heart rate 98 /min [facility] 07-08-2023 13:41-0500 Respiratory rate 12 /min [facility] 07-08-2023 13:41-0500 Systolic blood pressure 137 mm[Hg] [facility] 05-23-2023 13:30-0500 Body height 171.45 cm Manav Ball Other [employer] Other 05-23-2023 13:30-0500 Body mass index (BMI) [Ratio] 36.88 kg/m2 Manav Ball Other [employer] Other 05-23-2023 13:30-0500 Body weight 108.41 kg Manav Ball Other [employer] Other 05-23-2023 13:30-0500 Diastolic blood pressure 75 mm[Hg] Manav Ball Other [employer] Other 05-23-2023 13:30-0500 Respiratory rate 16 /min Manav Ball Other [employer] Other 05-23-2023 13:30-0500 Systolic blood pressure 141 mm[Hg] Manav Ball Other [employer] Other 05-03-2023 11:25-0500 Body height 171.45 cm Nina Madison Other [employer] Other 05-03-2023 11:25-0500 Body mass index (BMI) [Ratio] 36.88 kg/m2 Nina Madison Other [employer] Other 05-03-2023 11:25-0500 Body temperature 98 [degF] Nina Madison Other [employer] Other 05-03-2023 11:25-0500 Body weight 108.41 kg Nina Madison Other [employer] Other 05-03-2023 11:25-0500 Diastolic blood pressure 82 mm[Hg] Nina Wallace Other [employer] Other 05-03-2023 11:25-0500 Respiratory rate 18 /min Nina Wallace Other [employer] Other 05-03-2023 11:25-0500 SaO2% (BldA) [Mass fraction] 95 % Nina Wallace Other [employer] Other 05-03-2023 11:25-0500 Systolic blood pressure 118 mm[Hg] Nina Wallace Other [employer] Other 04-17-2023 09:21-0500 Blood Pressure Location Roseann Orzech [facility] 04-17-2023 09:21-0500 Body temperature 97.34 [degF] Roseann Orzech [facility] 04-17-2023 09:21-0500 Diastolic blood pressure 86 mm[Hg] Roseann Orzech [facility] 04-17-2023 09:21-0500 Heart rate 83 /min Roseann Orzech [facility] 04-17-2023 09:21-0500 Systolic blood pressure 134 mm[Hg] Roseann Orzech [facility] 04-16-2023 14:52-0500 Body height 172.7 cm Tamra Grewal MD Work Phone: [facility] 04-16-2023 14:52-0500 Body weight 108.41 kg Tamra Grewal MD Work Phone: [facility] 04-16-2023 14:52-0500 Diastolic blood pressure 84 mm[Hg] Tamra Grewal MD Work Phone: [facility] 04-16-2023 14:52-0500 Heart rate 80 /min Tamra Grewal MD Work Phone: [facility] 04-16-2023 14:52-0500 Systolic blood pressure 142 mm[Hg] Tamra Grewal MD Work Phone: [facility] 01-06-2023 13:30-0400 Body height 171.45 cm Manav Ball Other [employer] Other 01-06-2023 13:30-0400 Body mass index (BMI) [Ratio] 36.88 kg/m2 Manav Ball Other [employer] Other 01-06-2023 13:30-0400 Body weight 108.41 kg Manav Ball Other [employer] Other 01-06-2023 13:30-0400 Diastolic blood pressure 77 mm[Hg] Manav Ball Other [employer] Other 01-06-2023 13:30-0400 Respiratory rate 12 /min Manav Ball Other [employer] Other 01-06-2023 13:30-0400 Systolic blood pressure 136 mm[Hg] Manav Ball Other [employer] Other 08-21-2022 16:15-0400 Body height 171.45 cm Manav Ball Other [employer] Other 08-21-2022 16:15-0400 Body mass index (BMI) [Ratio] 37.83 kg/m2 Manav Ball Other [employer] Other 08-21-2022 16:15-0400 Body weight 111.22 kg Manav Ball Other [employer] Other 08-21-2022 16:15-0400 Diastolic blood pressure 89 mm[Hg] Manav Ball Other [employer] Other 08-21-2022 16:15-0400 Respiratory rate 16 /min Manav Ball Other [employer] Other 08-21-2022 16:15-0400 Systolic blood pressure 170 mm[Hg] Manav Ball Other [employer] Other 08-20-2022 13:26-0400 Diastolic blood pressure 79 mm[Hg] Rachid Odell MD Work Phone: [facility] 08-20-2022 13:26-0400 Heart rate 82 /min Rachid Odell MD Work Phone: [facility] 08-20-2022 13:26-0400 Systolic blood pressure 155 mm[Hg] Rachid Odell MD Work Phone: [facility] 07-17-2022 15:45-0500 Body height 171.45 cm Manav Ball Other [employer] Other 07-17-2022 15:45-0500 Diastolic blood pressure 84 mm[Hg] Manav Ball Other [employer] Other 07-17-2022 15:45-0500 Respiratory rate 16 /min Manav Ball Other [employer] Other 07-17-2022 15:45-0500 Systolic blood pressure 122 mm[Hg] Manav Ball Other [employer] Other 07-12-2022 18:00-0500 Heart rate 69 /min Km Jason DO Work Phone: [employer] 07-12-2022 18:00-0500 Respiratory rate 25 /min Km Jason DO Work Phone: [employer] 07-12-2022 18:00-0500 SaO2% (BldA) [Mass fraction] 97 % Km Jason DO Work Phone: [employer] 07-12-2022 16:00-0500 Diastolic blood pressure 74 mm[Hg] Km Jason DO Work Phone: [employer] 07-12-2022 16:00-0500 Systolic blood pressure 160 mm[Hg] Km Jasno DO Work Phone: [employer] 07-12-2022 15:45-0500 Body height 172.7 cm Km Jason DO Work Phone: [employer] 07-12-2022 15:45-0500 Body mass index (BMI) [Ratio] 37.25 kg/m2 Km Jason DO Work Phone: [employer] 07-12-2022 15:45-0500 Body temperature 97.7 [degF] Km Jason DO Work Phone: [employer] 07-12-2022 15:45-0500 Body weight 111.13 kg Km Jason DO Work Phone: [employer] 05-01-2022 15:58-0500 Body height 172.7 cm Tamra Grewal MD Work Phone: [facility] 05-01-2022 15:58-0500 Body temperature 97.81 [degF] Tamra Grewal MD Work Phone: [facility] 05-01-2022 15:58-0500 Body weight 112.49 kg Tamra Grewal MD Work Phone: [facility] 05-01-2022 15:58-0500 Diastolic blood pressure 68 mm[Hg] Tamra Grewal MD Work Phone: [facility] 05-01-2022 15:58-0500 Heart rate 85 /min Tamra Grewal MD Work Phone: [facility] 05-01-2022 15:58-0500 Respiratory rate 18 /min Tamra Grewal MD Work Phone: [facility] 05-01-2022 15:58-0500 SaO2% (BldA) [Mass fraction] 97 % Tamra Grewal MD Work Phone: [facility] 05-01-2022 15:58-0500 Systolic blood pressure 147 mm[Hg] Tamra Grewal MD Work Phone: [facility] 01-24-2022 14:00-0400 Diastolic blood pressure 88 mm[Hg] Rachid Odell MD Work Phone: [facility] 01-24-2022 14:00-0400 Heart rate 80 /min Rachid Odell MD Work Phone: [facility] 01-24-2022 14:00-0400 Systolic blood pressure 134 mm[Hg] Rachid Odell MD Work Phone: [facility] 11-23-2021 11:27-0400 Blood Pressure Location Natalie MICHEL [facility] 11-23-2021 11:27-0400 Diastolic blood pressure 91 mm[Hg] Natalie MICHEL [facility] 11-23-2021 11:27-0400 Heart rate 71 /min Natalie MICHEL [facility] 11-23-2021 11:27-0400 Respiratory rate 16 /min Natalie MICHEL [facility] 11-23-2021 11:27-0400 Systolic blood pressure 152 mm[Hg] Natalie MICHEL [facility] 10-09-2021 15:00-0400 Body height 171.45 cm Mook Santiago Other [employer] Other 10-09-2021 15:00-0400 Body mass index (BMI) [Ratio] 36.26 kg/m2 Mook Santiago Other [employer] Other 10-09-2021 15:00-0400 Body weight 106.6 kg Mook Santiago Other [employer] Other 10-09-2021 15:00-0400 Diastolic blood pressure 85 mm[Hg] Mook Santiago Other [employer] Other 10-09-2021 15:00-0400 Systolic blood pressure 154 mm[Hg] Mook Santiago Other [employer] Other Encounters Encounter Date Encounter Type Care Provider Facility Start: 01-09-2024 End: 01-09-2024 ambulatory [facility] Work Phone: Start: 01-09-2024 End: 01-09-2024 Patient encounter procedure [facility] Physician [facility] Work Phone: Start: 11-14-2023 Non-patient / Non-visit [facility] Work [facility]: Start: 09-03-2023 End: 09-03-2023 ambulatory [facility] Work Phone: Start: 09-03-2023 End: 09-03-2023 Patient encounter procedure [facility] Physician [facility] Work Phone: Start: 08-22-2023 End: 08-22-2023 ambulatory MANAV RAJAN Facility:[facility] Start: 08-22-2023 End: 08-22-2023 Patient encounter procedure Rachid Odell MD Work Phone: Neurology Comment on above: Neuropathy (Primary Dx); Essential tremor Start: 08-04-2023 Refill Rachid Odell MD Work Phone: Neurology Comment on above: Refill Request Start: 07-08-2023 End: 07-08-2023 Patient encounter procedure [facility] Physician [facility] Work Phone: Start: 07-03-2023 Non-patient / Non-visit [facility] Physician [facility] Work Phone: Start: 07-02-2023 Follow-up encounter Tamra Grewal MD Work Phone: [facility] Start: 07-02-2023 Pacemaker Remote F/U Tamra Grewal MD Work Phone: [facility] Department Start: 05-23-2023 End: 05-23-2023 ambulatory Manav Rajan Other [employer] Other Start: 05-23-2023 Transitional care manage srvc 14 day discharge Manav Rajan [facility] Start: 05-19-2023 End: 05-19-2023 ambulatory Manav Rajan Other [employer] Other Start: 05-19-2023 Telephone encounter Manav Trevino [facility] Start: 05-14-2023 End: 05-14-2023 ambulatory Manav Rajan Other [employer] Other Start: 05-14-2023 Telephone encounter Manav Trevino [facility] Start: 05-10-2023 End: 05-10-2023 ambulatory Manav Rajan Other [employer] Other Start: 05-10-2023 Telephone encounter Manav BEY G [facility] Start: 12-23-2023 Office outpatient vi sit 15 minutes Nina Wallace [facility] Start: 05-03-2023 End: 05-03-2023 ambulatory Nina Wallace [facility] Juan Diego Jarvam Other Start: 05-03-2023 End: 05-03-2023 Departed Referred [facility]-C Nina Wallace Work Phone: [facility] [place] Work Phone: Start: 04-30-2023 End: 05-01-2023 ambulatory PA-C CARMINA THOMAS Facility:[facility] Start: 04-30-2023 End: 04-30-2023 Patient encounter procedure CARMINA THOMAS [facility] Start: 04-17-2023 End: 04-18-2023 ambulatory Roseann X Orzech Facility:[facility] Start: 04-17-2023 End: 04-18-2023 ambulatory Roseann X Orzech Facility: [facility] Start: 04-17-2023 End: 04-17-2023 Lab Drop off Roseann X Orzech [facility] Start: 04-17-2023 End: 04-17-2023 Patient encounter procedure Roseann X Orzech [facility] Start: 04-16-2023 End: 04-16-2023 ambulatory MANAV RAJAN Facility:[facility] Start: 04-16-2023 Follow-up encounter Tamra Grewal MD Work Phone: [facility] Start: 04-16-2023 End: 04-16-2023 Patient encounter procedure Tamra Grewal MD Work Phone: [facility] Department Comment on above: Pacemaker (Primary D x) Start: 04-11-2023 End: 04-11-2023 ambulatory Manav Rajan Other [employer] Other Start: 04-11-2023 Telephone encounter Manav Trevino [facility] Start: 04-10-2023 End: 04-10-2023 ambulatory Manav Rajan Other [employer] Other Start: 04-10-2023 Telephone encounter Manav Trevino [facility] Start: 04-02-2023 Follow-up encounter Tamra Grewal MD Work Phone: [facility] Start: 04-02-2023 Pacemaker Remote F/U Tamra Grewal MD Work Phone: [facility] Department Start: 03-04-2023 Refill Rachid Odell MD Work Phone: Neurology Comment on above: Refill Request Start: 02-20-2023 End: 02-20-2023 ambulatory MANAV RAJAN Facility:[facility] Start: 02-20-2023 End: 02-20-2023 ambulatory Rachid Odell MD Work Phone: Neurology Comment on above: Essential tremor (Pr imary Dx) Start: 02-20-2023 End: 02-20-2023 Telemedicine consultation with patient Rachid Odell MD Work Phone: YONNY GREWAL [facility] Start: 02-19-2023 End: 02-19-2023 ambulatory Manav Rajan Other [employer] Other Start: 02-19-2023 Nursing evaluation o f patient and report Manav SMITH [facility] Start: 01-22-2023 Follow-up encounter Tamra Grewal MD Work Phone: [facility] Start: 01-22-2023 Pacemaker Remote F/U Tamra Grewal MD Work Phone: [facility] Department Start: 01-07-2023 End: 01-07-2023 ambulatory Manav Rajan Other [employer] Other Start: 01-07-2023 Telephone encounter Manav Trevino [facility] Start: 01-06-2023 End: 01-06-2023 ambulatory Manav Rajan Other [employer] Other Start: 01-06-2023 Patient encounter procedure Manav Rajan [facility] Start: 01-03-2023 End: 01-03-2023 ambulatory Manav Rajan Other [employer] Other Start: 01-03-2023 Office outpatient vi sit [address] [facility] Start: 01-02-2023 End: 01-02-2023 ambulatory Manav Rajan Other [employer] Other Start: 01-02-2023 Telephone encounter Manav BEY G [facility] Start: 01-01-2023 Follow-up encounter Tamra Grewal MD Work Phone: [facility] Start: 01-01-2023 Pacemaker Remote F/U Tamra Grewal MD Work Phone: [facility] Department Start: 11-25-2022 End: 11-26-2022 ambulatory Natalie MICHEL Facility:[facility] Start: 09-30-2022 Follow-up encounter Tamra Grewal MD Work Phone: [facility] Start: 09-30-2022 Pacemaker Remote F/U Tamra Grewal MD Work Phone: [facility] Department Start: 09-04-2022 End: 09-04-2022 ambulatory Manav Rajan Other [employer] Other Start: 09-04-2022 Telephone encounter Manav BEY G [facility] Start: 08-21-2022 End: 08-21-2022 ambulatory Manav Rajan Other [employer] Other Start: 08-21-2022 Office outpatient vi sit [address] [facility] Start: 08-20-2022 End: 08-20-2022 Patient encounter procedure Rachid Odell MD Work Phone: Neurology Comment on above: Tremor (Primary Dx); Vertigo Start: 08-15-2022 End: 08-15-2022 ambulatory Manav Mohini Other [employer] Other Start: 08-15-2022 Telephone encounter Manav Rajan [facility] Comment on above: Appointment Start: 08-14-2022 End: 08-14-2022 ambulatory Manav Rajan Other [employer] Other Start: 08-14-2022 Nursing evaluation o f patient and report Manav Mohini [facility] Start: 07-29-2022 End: 07-29-2022 ambulatory Manav Rajan Other [employer] Other Start: 07-29-2022 Telephone encounter Manav Rajan MAIDA G [facility] Start: 07-17-2022 End: 07-17-2022 ambulatory Manav Rajan Other [employer] Other Start: 07-17-2022 Office outpatient vi sit 15 minutes Manav Rajan [facility] Start: 07-17-2022 Telephone encounter Manav Rajan MAIDA Trevino [facility] Start: 07-12-2022 End: 07-12-2022 Emergency department patient visit MANAV MOHINI [facility] Start: 07-12-2022 End: 07-12-2022 Emergency department patient visit Km Jason DO Work Phone: [facility] ED Comment on above: Dizziness (Primary D x) Start: 07-11-2022 End: 07-12-[address] MANAV RAJAN Facility:[facility] Start: 07-02-2022 End: 07-02-2022 ambulatory Manav Rajan Other [employer] Other Start: 07-02-2022 Telephone encounter Manav Rajan MAIDA Trevino [facility] Start: 07-01-2022 Follow-up encounter Tamra Grewal MD Work Phone: [facility] Start: 07-01-2022 Pacemaker Remote F/U Tamra Grewal MD Work Phone: [facility] Department Start: 06-29-2022 End: 06-29-[address] MANAV RAJAN Facility:[facility] Start: 06-28-2022 End: 06-28-2022 ambulatory Manav Rajan Other [employer] Other Start: 06-28-2022 Telephone encounter Manav Rajan [facility] Start: 06-25-2022 End: 06-25-2022 ambulatory Manav Rajan Other [employer] Other Start: 06-25-2022 Telephone encounter Manav BEY Uriel [facility] Start: 05-01-2022 Follow-up encounter Tamra Grewal MD Work Phone: [facility] Start: 05-01-2022 End: 05-01-2022 Patient encounter procedure Tamra Grewal MD Work Phone: [facility] Department Comment on above: Pacemaker (Primary D x) Start: 04-01-2022 Follow-up encounter Tamra Grewal MD Work Phone: [facility] Start: 04-01-2022 Pacemaker Remote F/U Tamra Grewal MD Work Phone: [facility] Start: 01-24-2022 End: 01-24-2022 Patient encounter procedure Rachid Odell MD Work Phone: Neurology Comment on above: Essential tremor (Pr imary Dx) Start: 01-07-2022 End: 01-08-[address] MANAV RAJAN Facility:[facility] Start: 12-31-2021 Follow-up encounter Tamra Grewal MD Work Phone: [facility] Start: 12-31-2021 Pacemaker Remote F/U Tamra Grewal MD Work Phone: [facility] Start: 11-23-2021 End: 11-23-2021 Patient encounter procedure Natalie MICHEL [facility] Start: 11-20-2021 End: 11-21-[address] MANAV RAJAN Facility:[facility] Start: 10-09-2021 End: 10-09-2021 ambulatory Mook Santiago Other [employer] Other Start: 10-09-2021 Office outpatient ne w 45 minutes Mook Santiago [facility] Start: 08-21-[address] MANAV RAJAN Facili ty:[facility] Start: 07-14-2017 Ambulatory [facility]ANT SUAREZ [facility] Procedures Date Procedure Procedure Detail [...] Start: 07-12-2022 Comprehensive metabo lic panel Km Rod Romito DO Work Phone: Start: 07-12-2022 Urinalysis microscopic only Km Wisemanritesh DO Work Phone: Start: 07-12-2022 Urnls dip [...] 10-24-2016 Cystoscopic removal of ureteric stent Natalie MICHEL Start: 10-17-2016 Cystoscopic laser lithotripsy of ureteric calculus Natalie MICHEL Start: 02-09-2015 Implantation of card iac pacemaker Natalie MICHEL Start: 08-01-2014 Cystoscopic removal of ureteric stent Natalie MICHEL Start: 08-18-2011 Cystoscopic removal of ureteric stent Natalie MICHEL Start: 08-02-2011 Extracorporeal shock wave lithotripsy of calculus of kidney Natalie MICHEL Start: 06-28-2011 Cystoscopic laser lithotripsy of ureteric calculus Natalie MICHEL Arthroplasty of knee Natalie MICHEL Decompression of med bere nerve Natalie MICHEL Operative procedure on hand Natalie MICHEL Plan of Treatment Date Care Activity Detail Author Start: 11-25-2026 Urine microalbumin profile DTaP,Tdap,Td Vaccine (2 - Tdap) [facility] Start: 07-12-2025 Diabetes Screening Diabetes Screenin g [facility] Start: 01-11-2024 Influenza vaccination Influenz a Vaccine (Season Ended) [facility] Start: 05-12-2023 Advance Directive Discussion Advance Directive Discussion [facility] Start: 05-03-2023 Bacteria identified in Urine by Culture [facility] Start: 01-10-2023 Covid-19 Vaccine ( season) Covid-19 Vaccine ( season) [facility] Start: 01-10-2023 Influenza vaccination C [facility] Start: 05-12-2022 ADVANCE DIRECTIVE DISCUSSION ADVANCE DIRECTIVE DISCUSSION [facility] Start: 01-10-2022 Influenza vaccination INFLUENZA (#1) [facility] Start: 12-10-2021 Influenza vaccination Flu vaccine (# 1) [facility] Start: 05-12-2021 ADVANCE DIRECTIVE DISCUSSION ADVANCE DIRECTIVE DISCUSSION [facility] Start: 01-15-2021 COVID-19 VACCINE (3 - Booster for Pfizer series) COVID-19 VACCINE (3 - Booster for Pfizer series) [facility] Start: 10-10-2020 COVID-19 VACCINE (3 - Booster for Pfizer series) COVID-19 VACCINE (3 - Booster for Pfizer series) [facility] Start: 10-10-2020 Covid-19 Vaccine (3 - Pfizer series) Covid-19 Vaccine (3 - Pfizer series) [facility] Start: 09-04-2019 DIABETES SCREEN DIABETES SCREEN [facility] Start: 09-04-2019 Diabetes Screening Diabetes Screenin g [facility] Start: 02-25-2014 Pneumococcal Vaccine : 65+ (2 - PCV) Pneumococcal Vaccine: 65+ (2 - PCV) [facility] Start: 02-25-2014 Pneumococcal Vaccine : 65+ (2 of 2 - PCV) Pneumococcal Vaccine: 65+ (2 of 2 - PCV) [facility] Start: 02-25-2014 PNEUMOCOCCAL: 65+ (2 - PCV) PNEUMOCOCCAL: 65+ (2 - PCV) [facility] Start: 2007 BONE DENSITY BONE DENSITY [facility] Start: 2007 Bone Density Screening Bone Density Screening [facility] Start: 2007 Screening for osteoporosis Bone Density Screening [facility] Start: 2002 RSV Vaccine (1 - 1-d ose 60+ series) RSV Vaccine (1 - 1-dose 60+ series) [facility] Start: 1997 Screening for osteoporosis DEXA (modify frequency per FRAX score) [facility] Start: 1992 Shingles vaccine (1 of 2) Shingles vaccine (1 of 2) [facility] Start: 1992 SHINGRIX VACCINE (1 of 2) SHINGRIX VACCINE (1 of 2) [facility] Start: 1961 DTaP/Tdap/Td vaccine (1 - Tdap) DTaP/Tdap/Td vaccine (1 - Tdap) [facility] Start: 1961 Urine microalbumin profile [facility] Start: 1960 ANNUAL 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 VISIT ANNUAL PCP TEAM CHRONIC DISEASE VISIT [facility] Start: 1960 BP CONTROLLED (<130/80) BP CONTROLLE D (<130/80) [facility] Start: 1954 Depression Screen Depression Screen [employer] End: 07-12-2022 Culture, Blood 1 [employer] Work Phone: Comment on above: One Time for 1 Occur rences starting 07/12/2022 until 07/12/2022 End: 07-12-2022 Culture, Blood 2 [employer] Work Phone: Comment on above: One Time for 1 Occur rences starting 07/12/2022 until 07/12/2022 ECG COMPLETE ECG COMPLETE ECG Routine Pacemaker Ordered: 04/16/2023 [facility] Work Phone: Comment on above: Ordered: 04/16/2023 [facility] Immunizations Immunization Date Immunization Notes Care Provider Martha sena 11-25-2016 diphtheria, tetanus toxoids and acellular pertussis vaccine, unspecified formulation Manav Rajan Other [facility] 02-25-2013 pneumococcal polysaccharide vaccine, 23 valent Tamra Grewal MD Work Phone: [facility] Payers Date Payer Category Payer Self-pay 2016 Private Health Insurance [facility] AARP SUPPLEMENT [id number] 2016-Present [phone] [address] [place] [address] Indemnity [id number] 2012 Medicare [id number] 2007 Medicare MEDICARE MEDICAR E A AND B [id number] 2007-Present [phone] [address] [address] [place] [address] Medicare [id number] 1959 Medicare [id number] 1959 Self-pay [id number] 1959 Unknown [id number] 1942 Unknown [id number] .593 1942 Unknown [id number] .593 1942 Unknown [id number] .593 1942 Unknown [id number] .593 1942 Unknown [id number] [id number] .593 1942 Unknown [id number] [id number] .182 1942 Unknown [id number] [id number] .727 1942 Unknown [id number] [id number] .727 1942 Unknown [id number] [id number] .727 1942 Unknown [id number] [id number] .727 Medicare [id number] Private Health Insurance [facility] [id number] Unknown [facility] Health Claims [id number] Unknown [id number] Social History Date Type Detail Facility Unknown if ever smoked [employer] Other Start: 08-20-2022 End: 02-20-2023 Sex Assigned At [facility] [employer] Other Start: 11-23-2021 End: 07-03-2023 Tobacco smoking status Never smoked tobacco (finding) [facility] [employer] Start: 04-22-2017 End: 01-24-2022 Tobacco use and exposure Smokeless tobacco non-user [facility] Start: 07-24-2021 End: 08-22-2023 Alcohol intake Current non-drinker of alcohol (finding) [facility] Start: 1940 Sex Assigned At Not on file C [facility] Start: 07-02-2022 End: 07-12-2022 Exposure to SARS-CoV-2 (event) Not sure [facility] Start: 08-20-2022 End: 02-20-2023 History of Social function [facility] National Score (1-100), lower number is lower risk 62 [facility] [employer] Start: 1940 Sex Assigned At Female F [facility] Medical Equipment Procedure Code Equipment Code Equipment Origin al Text Equipment Identifier Dates Cochlear Drill Countersink 4mm - [id number] Start: 06-26-2009 Cochlear Flange Fix Str 4mm - [id number] Start: 06-26-2009 Hpb-Nd-M-Kind Implant - [id number] Start: 01-07-2011 Comment on above: Description: Surgica l simplex P Radiopaque bone cement Comp Fem 5 Rt Kn Cr Jim Trthln - [id number] Start: 01-07-2011 Ins Tib 4 11mm K n X3 Cr Trthln - [id number] Start: 01-07-2011 Comp Pat 10mm 35 mm Asym Trthln - [id number] Start: 01-07-2011 Baseplt Tib Trth ln 4 Prim - [id number] Start: 01-07-2011 Blood Sugar Diagnostic (True Metrix Glucose Test Strip) strip Start: 08-06-2023 Blood Sugar Diagnostic (True Metrix Glucose Test Strip) strip Start: 06-30-2023 End: 07-01-2023 Blood Sugar Diagnostic (True Metrix Glucose Test Strip) strip Start: 07-01-2023 End: 07-03-2023 Blood Sugar Diagnostic (True Metrix Glucose Test Strip) strip Start: 07-03-2023 End: 08-06-2023 Blood Sugar Diagnostic (True Metrix Glucose [...] 04-17-2023 Functional Status N/A [facility] 11-23-2021 Functional Status N/A [facility] Clinical Notes 10-09-2021 to 08-22-2023 Rachid Odell MD - 08/22/2023 1:52 PM EDTPAlycia stevens LPN - 08/22/2023 1:27 PM EDTTeleDenise Rivera - 08/04/2023 12:14 PM EDT Note Date & Type Note Facility 08-22-2023 Note HNO ID: [id number] Author: RACHID ODELL MD Service: ? Author [...] call me or (more content not included)... [facility] 08-22-2023 Note HNO ID: [id number] Author: ALYCIA RAYGOZA LPN Service: ? Author Type: LICENSED NURSE [...] SD worse than population and warrants attention [facility] 08-22-2023 History of Presen t illness [...] which included preparing to see the patient, aqru-kb-pvcf patient care, completing clinical documentation, obtaining and/or [...] and warrants attention documented in this encounter [facility] 08-04-2023 Miscellaneous Notes Formattin g of this note is different from the original. Patient has been identified by name and date of : Yes Requested Prescriptions Pending Prescriptions Disp Refills nortriptyline (PAMELOR) 10 mg capsule 90 capsule 0 Sig: Take 1 capsule by mouth daily at bedtime. RX INSTRUCTIONS: Denise Gonzales documented in this encounter [facility] 05-23-2023 Evaluation note Encounter Date Diagnosis Assessment [...] started to normalize Encouraged to push fluids May, Autoimmune thyroiditis (ICD-10 - E06.3) Clinically euthyroid. [...] overweight.Kelly tor for dysphagia. Continue Pepcid AC [employer] Other 12-30-2023 Evaluation note* Encounter Date Diagnosis Assessment Notes Treatment Notes Treatment Clinical Notes Apr, Acute cystitis without hematuria (ICD-10 - N30.00) [employer] Other 12-23-2023 Evaluation note* Encounter Date Diagnosis [...] the ER for worsening symptoms or concerns [employer] Other 12-07-2023 Hospital Discharge instructions Patient Education [...] include: ?8 oz (237 mL) of milk, nkryvku-ettxzxnugeyn-jwbau milk, and calcium- fortifiedfruit juice. Calcium-fortified means [...] ?Spinach (cooked), rhubarb, beets, sweet potatoes, and Guamanian chard. ?Peanuts. ?Potato chips, eritrean fries, and baked potatoes with skin on. ?Nuts and nut products. ?Chocolate. If you regularly take a diuretic medicine, make sure to eat at least 1 or 2 servings of fruits or vegetables that are high in potassium each day. These include: ?Avocado. ?Banana. ?Hydro, prune, carrot, or tomato juice. ?Baked potato. [...] magnesium, fish oil, or vitamin B6. Take udrg-vkb-vxdjvtn and prescription medicines only as told by [...] Casseroles. Pizza. Lasagna. Frozen meals. Potato chips. Maltese fries. The items listed above may not [...] provider. Document Revised: 08/08/2022 Document Reviewed: 08/08/2022 [employer] Patient Education 2022 [employer]. Follow Up Care 04/15/2023 08:26:17 With:PEEWEE Luna APRN, RUDY Metz, URL Address: When: Unknown Comments:Pending sxs after abx course. [facility] 12-06-2023 NoteHNO ID: [id number] Author: Tamra Grewal MD Service: Electrophysiology Author Type: Physician Type: Progress Notes Filed: 04/17/2023 10:03 PM Note Text: [facility] NOTE DEPARTMENT OF CARDIOLOGY BECKY NAME: PRUDENCE COLLINS NO.: [id number] DATE OF SERVICE: 04/16/2023 PCP: Manav Rajan M.D. Ms. Collins is an 82-year-old woman [...] 1 year. DICTATED BY: Dai Ontiveros/Hoda JOB# [id number] note* Encounter Date Diagnosis Assessment Notes Treatment Notes Treatment Clinical Notes Mar, Dysuria (ICD-10 - R30.0) Mar, SHELLEY (generalized anxiety disorder) (ICD-10 - F41.1) [employer] Other 10-24-2023 Miscellaneous Notes* Telephone Encounter - Casandra Lambert [...] patient. Casandra Lambert Ma documented in this encounter[facility]23 NoteHNO ID: [id number] Author: Rachid Odell MD Service: ? Author [...] and/or reviewing separately obtain (more content not included)...[facility]10-12-2023 NoteHNO ID: [id number] Author: Rachid Odell MD Service: ? Author [...] Sleep Apnea Probability Score: (Sleep study not recommended)[facility]10-12-2023 NoteHNO ID: [id number] Author: Rachid Odell MD Service: ? Author [...] Sleep Apnea Probability Score: (Sleep study not recommended)[facility]10-12-2023 History of Present illness Narrative* Rachid [...] (Sleep study not recommended) documented in this encounterTri[facility] Evaluation note* Encounter Date Diagnosis Assessment Notes Treatment Notes Treatment Clinical Notes Feb, Dysuria (ICD-10 - R30.0) test ran by YVES Zhu [employer] Other 08-28-2023 Evaluation note* Encounter Date Diagnosis [...] taking extra 1/2 of the Buspar daily 15/7.5/15 Dec, Autoimmune thyroidit is (ICD-10 - E06.3) Euthyroid, [...] and to contact office for any changes [employer] [facility] 08-25-2023 Evaluation note* Encounter Date Diagnosis Assessment Notes Treatment Notes Treatment Clinical Notes Dec, Acute non-recurrent maxillary sinusitis (ICD-10 - J01.00) Instructed to use Robitussin or Mucinex for cough, saline or Flonase NS for congestion, Tylenol for pain and fever. [employer] Other 04-12-2023 Evaluation note* Encounter Date Diagnosis [...] is (ICD-10 - E06.3) Euthyroid, yearly TSH [employer] Other 04-11-2023 History of Present illness Narrative* [...] 06/26/2009 BAHA implant TONSILLECTOMY PRIMARY/SECONDARY <AGE 12 196 Tonsillectomy Current Outpatient Medications on File Prior [...] which included preparing to see the patient, uljo-hr-zups patient care, completing clinical documentation, obtaining and/or reviewing separately obtained history, performing a medically appropriate examination, counseling and educating the pat ient/family/caregiver, and ordering medications, tests, or procedures. SIGNATURE: Rachid Odell MD PATIENT NAME: Rufino Collins DATE: August 20, 2022 TIME: 1:59 PM documented in this encounterTri[facility] Miscellaneous Notes* Telephone Encounter - Mariposa Kirby [...] [Other], Levofloxacin, and Sulfa (Sulfonamide Antibiotics) (home) [phone] (cell) Reason for call: The appointment center [...] not asked Karla Jackson documented in this encounterTri[facility] Evaluation note* Encounter Date Diagnosis Assessment Notes Treatment Notes Treatment Clinical Notes Aug, Dysuria (ICD-10 - R30.0) [employer] Other 03-08-2023 Evaluation note* Encounter Date Diagnosis [...] reviewed at the office visit. A1C: yearly [employer] Other 03-03-2023 Hospital Discharge instructions* Discharge Instructions* Km Jason DO - 07/12/2022 6:54 PM EST X-ray [...] be sent through Care Everywhere. * Dizziness (Finnish) * Alta Maneuver: Vertigo: Exercises (Finnish) * Vertigo (Finnish) * Vertigo: [place] Exercises (Finnish) [facility] [employer] Phone: [phone]) 904-478602-21-2023 Evaluation note* Encounter Date Diagnosis Assessment Notes Treatment Notes Treatment Clinical Notes Jun, Chronic maxillary sinusitis (ICD-10 - J32.0) [employer] Other 09-15-2022 History of Present illness Narrative* [...] which included preparing to see the patient, gbzo-ip-xvve patient care, completing clinical documentation, obtaining and/or reviewing separately obtained history, performing a medically appropriate examination, counseling and educating the pat ient/family/caregiver, and ordering medications, tests, or procedures. SIGNATURE: Rachid Odell MD PATIENT NAME: Rufino Collins DATE: January 24, 2022 TIME: 2:17 PM documented in this encounterTrihealth [facility]07[facility] Hospital Discharge instructions Patient Education 11/23/2021 11:38:26 [...] 04/14/2013 Document Revised: 12/16/2018 Document Reviewed: 12/16/2018 Cuciniale Patient Education 2020 [employer]. 11/23/2021 11:25:05 Kidney Stones, Vpzs-fy-Vjwv Kidney Stones Kidney stones are rock-like masses [...] Follow these instructions at home: Medicines Take qzir-iaa-fttgmgx and prescription medicines only as told by [...] 10/14/2008 Document Revised: 09/14/2019 Document Reviewed: 09/14/2019 Cuciniale Patient Education 2019 [employer]. Follow Up Care 09/18/2020 14:42:38 With:ANAND ALMARAZ, Natalie Mosley, URL Address: [address] [place], [place] [id number]- When:Within 1 Year(s) Comments:nick/ MARCELINO [facility] 05-31-2022 Evaluation note* Encounter Date Diagnosis Assessment Notes Treatment Notes Treatment Clinical Notes September, GERD (gastroesophageal reflux disease) (ICD-10 - K21.9) Continue Pantoprazole 40mg daily September, Irritable bowel syndrome with diarrhea (ICD-10 - K58.0) Continue Dicyclomine prn September, Hemorrhoids (ICD-10 - K64.9) Start Anusol cream [employer] Other Evaluation + Plan note Future Appointments Appointment Date:11/25/2022 01:15:00 PM Scheduled Provider:Natalie MICHEL MD Location:[facility] Appointment Type:URO Office Visit [facility] evaluation + Plan note Future Appointments Appointment Date:04/30/2023 11:00:00 AM Scheduled Provider: Location:[facility] Appointment Type:URO Nurse Visit [facility] Evaluation + Plan note Future Appointments Appointment Date:04/30/2023 11:00:00 AM Scheduled Provider: Location:[facility] Appointment Type:URO Nurse Visit Diagnostic Tests Pending * [facility] Diagnosis Essential tremor- Primary Essential and other specified forms of tremor documented in this [facility]* Diagnosis Pacemaker- Primary Cardiac pacemaker in situ documented in this encounter [facility] note* Diagnosis Dizziness- Primary Dizziness and giddiness documented in this encounter [facility] Work Phone: evaluation noteNo [employer] Other Evaluation note* Diagnosis Tremor- Primary Abnormal involuntary movements Vertigo Dizziness and giddiness documented in this encounter [facility] note* Diagnosis Essential tremor- Primary Essential and other specified forms of tremor documented in this encounter [facility]* Diagnosis Pacemaker- Primary Cardiac pacemaker in situ documented in this encounter [facility] noteNo assessment information [facility] Work Phone: Evaluation note* Diagnosis Neuropathy- Primary Mononeuritis of unspecified site Essential tremor Essential and other specified forms of tremor documented in this encounter [facility] note* Diagnosis Onset Date Resolution Status SHELLEY (generalized anxiety disorder) acute Hypertension acute Hypothyroidism acute Obesity acute Pacemaker acute Type 2 diabetes mellitus with hyperglycemia acute Maxillary sinusitis acute [facility] Work Phone: Evaluation note* Diagnosis Onset Date Resolution Status SHELLEY (generalized anxiety disorder) acute Hypertension acute Hypothyroidism acute Obesity acute Pacemaker acute Type 2 diabetes mellitus with hyperglycemia acute Medicare annual wellness visit, subsequent noneactive [facility] Work Phone: History general Narrative - Reported* [...] ABOVE SURGERY Hospitalization History kidney stones 10/2016 [employer] Other Hospital course Narrative No data available for this section [facility] Discharge instructions No data available for this section [facility] No data available for this section [facility] Ray reason for referral (narrative)* Outpatient Procedure (Routine) - Pending Review Specialty Diagnoses / Procedures Referred By Luiz t Referred To [facility] Diagnoses Pacemaker Procedures ECG COMPLETE ECG ROUTINE ECG W/LEAST 12 LDS W/I&[place] [address] [place] [address] [facility] [place] [address] [place] [address] Referral ID Status Reason Start Date Expiration Date Visits Requested Visits Authorized [id number] Pending Review Auto-Generat ed Referral 04/16/2023 04/15/2024 1 1 [facility] Summary Purpose Family History Relationship Condition Age at Onset Recorded Date/T ayla father Unknown family member Unknown Not Specified Unknown Relationship Condition Age at Onset Recorded Date/T ayla father Unknown family member Unknown mother Unknown Advance Directives Documents on File Type Date Recorded 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 Advance Directive(s) Advance Directive(s) 01/16/2007 Documents on File Type Date Recorded 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 Advance Directive(s) Advance Directive(s) 01/16/2007 Advance Directive Response Recorded Date/ Time Advance Directives No April 2:23pm Chief Complaint and Reason for Visit Chief Complaint Dysuria Chief Complaint Amb Documentation 6 month check up Sinus infection Reason for Visit SHELLEY (generalized anx iety disorder) Hypertension Hypothyroidism Obesity Pacemaker Type 2 diabetes mellitus with hyperglycemia Maxillary sinusitis Chief Complaint MEDICARE WELLNESS Reason for Visit SHELLEY (generalized anx iety disorder) Hypertension Hypothyroidism Obesity Pacemaker Type 2 diabetes mellitus with hyperglycemia Medicare annual wellness visit, subsequent Additional Source Comments INFORMATION SOURCE (unrecogn ized section and content) DATE CREATED AUTHOR 10/31/2017 [facility] DATE CREATED AUTHOR AUTHOR'S ORGANIZ ATION 07/17/[address] [facility] DATE CREATED AUTHOR AUTHOR'S ORGANIZ ATION 07/19/2022 [facility] DATE CREATED AUTHOR AUTHOR'S ORGANIZ ATION 05/01/2023 [facility] DATE CREATED AUTHOR AUTHOR'S ORGANIZ ATION 05/07/2023 [facility] DATE CREATED AUTHOR AUTHOR'S ORGANIZ ATION 08/23/2023 [facility] REASON FOR VISIT (unrecogniz ed section and content) Reason Comments Established Patient Reason Comments Follow Up 1 Year Follow Up/Dev ice Check Reason Comments Dizziness Reason Comments Appointment Reason Comments New Patient Evaluation Reason Comments Tremor Reason Onset Date Comments Refill Request 03/04/2023 Reason Comments Follow Up Reason Onset Date Comments Refill Request 08/04/2023 Care Team (unrecognized sect ion and content) [employer] Relationship Specialty Start Date End Date Manav Rajan DO PCP - General Internal Medicine 02/07/15 Tamra Grewal MD Primary Staff Physician Cardiology 07/28/18 [employer] Relationship Specialty Start Date End Date Manav Rajan DO PCP - General Internal Medicine 02/07/15 Tamra Grewal MD Primary Staff Physician Cardiology 07/28/18 [employer] Relationship Specialty Start Date End Date Manav Rajan DO PCP - General Internal Medicine 02/07/15 Tamra Grewal MD Primary Staff Physician Cardiology 07/28/18 [employer] Relationship Specialty Start Date End Date Manav Rajan DO PCP - General Internal Medicine 02/07/15 Tamra Grewal MD Primary Staff Physician Cardiology 07/28/18 [employer] Relationship Specialty Start Date End Date Manav Rajan DO PCP - General Internal Medicine 04/23/17 [employer] Relationship Specialty Start Date End Date Manav Rajan DO PCP - General Internal Medicine 02/07/15 Tamra Grewal MD Primary Staff Physician Cardiology 07/28/18 [employer] Relationship Specialty Start Date End Date Manav Rajan DO PCP - General Internal Medicine 02/07/15 Tamra Grewal MD Primary Staff Physician Cardiology 07/28/18 [employer] Relationship Specialty Start Date End Date Manav Rajan DO PCP - General Internal Medicine 02/07/15 Tamra Grewal MD Primary Staff Physician Cardiology 07/28/18 [employer] Relationship Specialty Start Date End Date Manav Rajan DO PCP - General Internal Medicine 02/07/15 Tamra Grewal MD Primary Staff Physician Cardiology 07/28/18 [employer] Relationship Specialty Start Date End Date Manav Rajan DO PCP - General Internal Medicine 02/07/15 Tamra Grewal MD Primary Staff Physician Cardiology 07/28/18 [employer] Relationship Specialty Start Date End Date Manav Rajan DO PCP - General Internal Medicine 02/07/15 Tamra Grewal MD Primary Staff Physician Cardiology 07/28/18 [employer] Relationship Specialty Start Date End Date Manav Rajan DO PCP - General Internal Medicine 02/07/15 Tamra Grewal MD Primary Staff Physician Cardiology 07/28/18 [employer] Relationship Specialty Start Date End Date Manav Rajan DO PCP - General Internal Medicine 02/07/15 Tamra Grewal MD Primary Staff Physician Cardiology 07/28/18 Team Status: Inactive Member Role Status Dates JESSI JohnsC Attending Provider Active [employer] Relationship Specialty Start Date End Date Manav Rajan DO PCP - General Internal Medicine 02/07/15 Tamra Grewal MD Primary Staff Physician Cardiology 07/28/18 Team Status: Active Member Role Status Dates Manav Rajan DO Primary Care Provider Active Team Status: Active Member Role Status Dates PHYSICIAN NO FAMILY Primary Care Provider Active Start: July 03, 2023 YVES Zhu Attending Provider Active St art: July 03, 2023 Team Status: Inactive Member Role Status Dates PHYSICIAN NO FAMILY Primary Care Provider Active Start: July 08, 2023 End: July 08, 2023 Manav Rajan DO Attending Provider Active Sta rt: July 08, 2023 End: July 08, 2023 Team Status: Inactive Member Role Status Dates Carmina Noyola APRN [employer] Attending Provider Act nguyen Start: September 03, 2023 End: September 03, 2023 Manav Rajan DO Primary Care Provider Active Start: September 03, 2023 End: September 03, 2023 Team Status: Active Member Role Status Dates Manav Rajan DO Primary Care Provide r, Attending Provider Active Start: November 14, 2023 Team Status: Inactive Member Role Status Dates Manav Ball , DO Primary Care Provide r, Attending Provider Active Start: January 09, 2024 End: January 09, 2024 Source Comments (unrecognize d section and content) In the event this informatio n is protected by the Federal Confidentiality of Alcohol and Drug Abuse Patient Records regulations: The Federal rules restrict any use of the information to criminally investigate or prosecute any alcohol or drug abuse patient.[facility] the event this information is protected by the Federal Confidentiality of Alcohol and Drug Abuse Patient Records regulations: The Federal rules restrict any use of the information to criminally investigate or prosecute any alcohol or drug abuse patient.[facility] the event this information is protected by the Federal Confidentiality of Alcohol and Drug Abuse Patient Records regulations: The Federal rules restrict any use of the information to criminally investigate or prosecute any alcohol or drug abuse patient.[facility] the event this information is protected by the Federal Confidentiality of Alcohol and Drug Abuse Patient Records regulations: The Federal rules restrict any use of the information to criminally investigate or prosecute any alcohol or drug abuse patient.[facility] the event this information is protected by the Federal Confidentiality of Alcohol and Drug Abuse Patient Records regulations: The Federal rules restrict any use of the information to criminally investigate or prosecute any alcohol or drug abuse patient.[facility] the event this information is protected by the Federal Confidentiality of Alcohol and Drug Abuse Patient Records regulations: The Federal rules restrict any use of the information to criminally investigate or prosecute any alcohol or drug abuse patient.[facility] the event this information is protected by the Federal Confidentiality of Alcohol and Drug Abuse Patient Records regulations: The Federal rules restrict any use of the information to criminally investigate or prosecute any alcohol or drug abuse patient.[facility] the event this information is protected by the Federal Confidentiality of Alcohol and Drug Abuse Patient Records regulations: The Federal rules restrict any use of the information to criminally investigate or prosecute any alcohol or drug abuse patient.[facility] the event this information is protected by the Federal Confidentiality of Alcohol and Drug Abuse Patient Records regulations: The Federal rules restrict any use of the information to criminally investigate or prosecute any alcohol or drug abuse patient.[facility] the event this information is protected by the Federal Confidentiality of Alcohol and Drug Abuse Patient Records regulations: The Federal rules restrict any use of the information to criminally investigate or prosecute any alcohol or drug abuse patient.[facility] the event this information is protected by the Federal Confidentiality of Alcohol and Drug Abuse Patient Records regulations: The Federal rules restrict any use of the information to criminally investigate or prosecute any alcohol or drug abuse patient.[facility] the event this information is protected by the Federal Confidentiality of Alcohol and Drug Abuse Patient Records regulations: The Federal rules restrict any use of the information to criminally investigate or prosecute any alcohol or drug abuse patient.[facility] Hospital[facility] the event this information is protected by the Federal Confidentiality of Alcohol and Drug Abuse Patient Records regulations: The Federal rules restrict any use of the information to criminally investigate or prosecute any alcohol or drug abuse patient.[facility] Hospital[facility] the event this information is protected by the Federal Confidentiality of Alcohol and Drug Abuse Patient Records regulations: The Federal rules restrict any use of the information to criminally investigate or prosecute any alcohol or drug abuse patient.[facility] Hospital[facility] the event this information is protected by the Federal Confidentiality of Alcohol and Drug Abuse Patient Records regulations: The Federal rules restrict any use of the information to criminally investigate or prosecute any alcohol or drug abuse patient.[facility] HospitalIn the event this information is protected by the Federal Confidentiality of Alcohol and Drug Abuse Patient Records regulations: The Federal rules restrict any use of the information to criminally investigate or prosecute any alcohol or drug abuse patient.[facility] HospitalIn the event this information is protected by the Federal Confidentiality of Alcohol and Drug Abuse Patient Records regulations: The Federal rules restrict any use of the information to criminally investigate or prosecute any alcohol or drug abuse patient.[facility] HospitalIn the event this information is protected by the Federal Confidentiality of Alcohol and Drug Abuse Patient Records regulations: The Federal rules restrict any use of the information to criminally investigate or prosecute any alcohol or drug abuse patient.[facility] HospitalIn the event this information is protected by the Federal Confidentiality of Alcohol and Drug Abuse Patient Records regulations: The Federal rules restrict any use of the information to criminally investigate or prosecute any alcohol or drug abuse patient.[facility] Goals (unrecognized section and content) Goals may [...] BE BASED ON THE PRIMARY CLINICAL RECORDS. [facility] CenterBanki[facility]. provides no warranty or guarantee of the accuracy or completeness of information in this document.
== END 2024-02-10 13:52 | disposition home or self-care (01) ==
LOC: CARD 13:52
PROVIDERS: PCP Internal Medicine; Visit Provider Internal Medicine
DX: R00.2 Palpitations (principal)
CPT/HCPCS: 93005

== ENCOUNTER 2024-07-09 14:10 | Outpatient (OUT) | payer MEDICARE, SELFPAY ==
--- OUTSIDE RECORDS SUMMARY | 2024-07-09 14:18 | XMS_ITS | CCD ---
Author Organization [facility] Care Team Providers Care Agriculture Sales Account Manager Name Role Phone BRYANT SUAREZ Unavailable Unavailable Mook Santiago Unavailable MANAV RAJAN Primary Care Physician Manav Rajan DO Primary Care Provider Tamra Grewal MD Unavailable [phone] Manav Rajan DO Primary Care Provider Tamra Grewal MD Unavailable [phone] Manav Rajan DO Primary Care Provider [phone] DR MANAV RAJAN Primary Care Unavailable NTAALIE MICHEL Admitting Unavailable NATALIE MICHEL Attending Unavailable NATALIE MICHEL Consulting Unavailable AISHWARYA, DR MOOK Gordon Consulting Unavailable MOHINI, DR JEFFERS Primary Care Unavailable RUTHANN ., QUEENIE Admitting Unavailable RUTHANN ., QUEENIE Attending Unavailable ADIN KILLIAN Consulting Unavailable RUTHANN ., QUEENIE Consulting Unavailable JOEY MARLEY Consulting Unavailable ALLA MONTALVO Consulting Unavailable MOHINI, DR JEFFERS Primary [...] Manav Rajan Unavailable Tamra Grewal MD Unavailable Natalie MICEHL Attending Unavailable TIM THOMAS Attending Unavailab Roseann Hinojosa Attending Unavailable Cheryl Roseann X Admitting Unavailable Roseann Luna Attending Unavailable Nina Wallace Unavailable BUSHRA Wallace Attending Provider Nina Wallace Attending Unavailable Nina Wallcae Admitting Unavailable NO FAMILY, PHYSICIAN Primary Care Unavailable Manav Rajan DO Primary Care Provider MANAV RAJAN Primary Care Unavailable RACHID ODELL Attending Unavailable MANAV RAJAN Primary Care Unavailable RACHID ODELL Referring Unavailable RACHID ODELL Attending Unavailable MANAV RAJAN Primary Care Unavailable TAMRA GREWAL Attending Unavailable MANAV RAJAN Primary Care Unavailable Allergies Allergy Classification Reported Allergen(s) Allergy Type Date of Onset Reaction(s) Facility (20 sources) acetaminophen / oxyCODONE; Translations: [OXYCODONE-ACETAMI NOPHEN] Drug Allergy 12-03-19 07 Intolerance [facility] Repository (20 sources) capsaicin; Translations: [CAPSAICIN] Drug Allergy 02-10-20 15 Itching [facility] Repository (20 sources) cephalexin; Translations: [CEPHALEXIN] Drug Allergy 07-23-19 17 Itching [facility] Repository (20 sources) clavulanic acid; Translations: [CLAVULANIC ACID] Drug Allergy 07-23-19 17 Itching [facility] Repository (20 sources) levoFLOXacin; Translations: [LEVOFLOXACIN] Drug Allergy 07-23-19 17 Itching [facility] Repository (20 sources) metroNIDAZOLE; Translations: [METRONIDAZOLE] Drug Allergy 07-23-19 Itching [facility] Repository (20 sources) moxifloxacin; Translations: [MOXIFLOXACIN] Drug Allergy 12-21-19 04 Unknown (qualifier value), Intolerance [facility] Repository (20 sources) pravastatin; Translations: [PRAVASTATIN SODIUM] Drug Allergy 06-15-19 10 Intolerance [facility] Repository (20 sources) Sulfonamides (Antibiotic); Translations: [SULFA (SULFONAMIDE ANTIBIOTICS)] Propensity to adverse reactions to drug (disorder) 12-21-19 04 GI Upset [facility] Repository (2 sources) OTHER; Translations: [OTHER] Propensity to adverse reactions (disorder) 12-20-19 07 AOF [facility] Repository (20 sources) Acetaminophen / oxyCODONE; Translations: [acetaminophen-oxy codone] Drug Allergy Unknown (qualifier value) [facility] Other (1 source) Amoxicillin / Clavulanate Drug Allergy Unknown [facility] Other (20 sources) Sulfonamides (Antibiotic) Drug allergy Unknown [facility] Other (20 sources) Pepper Drug allergy Unknown [place] Other (5 sources) Sulfonamides (Antibiotic); Translations: [sulfa drugs] Drug allergy Unknown (qualifier value) [facility] (5 sources) Peppers; Translations: [Peppers] Food allergy Unknown (qualifier value) [facility] (18 sources) hot peppers [Other] Propensity to adverse reactions 12-20-19 07 Itching [facility] Work Phone: (5 sources) oxyCODONE Drug Allergy 02-20-20 17 Unknown Reaction [facility] Work Phone: (15 sources) Sulfonamides (Antibiotic) Propensity to adverse reactions to drug 06-09-19 15 Unknown BON [facility] Work Phone: (2 sources) Acetaminophen / oxyCODONE Drug Allergy 03-24-20 14 [facility] [place] Repository (1 source) Amoxicillin Drug Allergy [facility] Repository (2 sources) Ciprofloxacin Drug Allergy 10-23-19 17 [facility] Repository (3 sources) moxifloxacin; Translations: [Avelox] Drug Allergy 03-24-20 14 [facility] [place] Repository (2 sources) Sulfonamides (Antibiotic) Drug allergy (disorder) 03-24-20 14 [facility] [place] Repository (20 sources) Amoxicillin-Pot Clavulanate Drug allergy Unknown [facility] Other (13 sources) Amoxicillin Drug Allergy Unknown [facility] Other (18 sources) metFORMIN Drug Allergy 09-03-19 24 Unknown, Unknown Reaction [facility] (14 sources) Pseudoephedrine Drug Allergy Unknown [employer] [place] [facility] [place] Other (18 sources) sulfADIAZINE Drug Allergy 09-03-19 Comment:Sulfa [facility] (14 sources) Avelox *FLUOROQUINOLONES* Propensity to adverse reactions Unknown [place] Other (1 source) Acetaminophen / oxyCODONE; Translations: [Percocet ] Drug Allergy [facility] Repository (4 sources) Acetaminophen Drug Allergy 09-03-19 Unknown Reaction [facility] (4 sources) pepper (genus Capsicum) Allergy to substance 09-03-19 Unknown Reaction [facility] Medications Current Medications Medication Drug Class(es) Dates Sig (Normalized) Sig (Original) acetaminophen 500 mg / caffeine 65 mg oral tablet (20 sources) Central Nervous System Stimulant, Methylxanthine take 2 tablets by mouth twice daily, then take 2 tablets by mouth in the morning, then take 1 tablet by mouth after lunch Acetaminophen-Caf feine (TENSION HEADACHE PAIN RELIEVER) 500-65 mg tab Take 2 tablets by mouth twice daily. 2 tablets in am, 1 tablet after lunch Active Comment on above: Take 2 tablets by mo ut twice daily. 2 tablets in am, 1 tablet after lunch amoxicillin 500 mg oral capsule (4 sources) Penicillin-class Antibacterial Start: 05-10-2023 take 1 capsule by mouth every twelve hours Amoxicillin 500 MG 1 capsule Orally Twice a day for 7 days Apr, Active ascorbic acid 500 mg extended release oral capsule (4 sources) Vitamin C Start: 07-04-2023 take 1 capsule by mouth once daily Ascorbic Acid (Vitamin C) 500 mg capsule, extended release Active 500 MG PO Daily July 04, 2023 12:00am ascorbic acid 100 mg / d-biotin 0.3 mg / folic acid 1 mg / niacinamide 20 mg / pantothenic acid 10 mg / pyridoxine hydrochloride 10 mg / riboflavin 1.7 mg / thiamine 1.5 mg / vitamin b12 0.006 mg oral tablet (20 sources) Vitamin B12, Vitamin C vit B complx-folic ac-C-biotin 1 mg-100 mg- 300 mcg tab Take by mouth. Active vit B complx-fol ic ac-C-biotin 1 mg-100 mg- 300 mcg tab Take by mouth. 0 Active Comment on above: Take by mouth. b complex vitamins capsule (1 source) take 1 capsule by mouth once daily b complex vitamins capsule Take 1 capsule by mouth daily 0 Active B-Complex SR (4 sources) Start: 02-17-2019 take 1 tablet by mouth once daily B-Complex SR tab(s), Oral, Daily, Refill(s) 0 Start Date: 02/17/19 Status: Ordered Blood-Glucose Meter (True Metrix Glucose Meter) mis (4 sources) Start: 07-03-2023 Blood-Glucose Meter (True Metrix Glucose Meter) [facility] [place] 0 .Route 1 July 03, 2023 12:00am to test blood sugar Start: 07-03-2023 Blood-Glucose Meter (True Metrix Glucose Meter) [facility] [place] 0 .Route 1 July 03, 2023 1:00am to test blood sugar busPIRone hydrochloride 15 mg oral tablet (20 sources) Start: 12-09-2023 take 1 tablet by mouth twice daily, then take 7.5 mg by mouth once at bedtime Buspirone 15 mg tablet Active 15 MG PO .COMPLEX 225 December 09, 2023 5:15pm 15mg bid and 7.5mg q HS Start: 09-24-2023 End: 12-09-2023 take 1 tablet by mouth twice daily Buspirone 15 mg tablet Discontinued 0 .ROUTE .COMPLEX 180 September 24, 2023 12:20pm December 09, 2023 5:17pm TAKE 1 TABLET BY MOUTH TWICE A DAY Start: 02-17-2019 busPIRone Oral , BID, Refills(s) 0 Start Date: 02/17/19 Status: Ordered Start: 10-06-2018 End: 09-24-2023 take 1 tablet by mouth twice daily Buspirone 15 mg tablet Discontinued 15 MG PO Twice daily July 04, 2023 12:00am September 24, 2023 12:20pm BuSpar 15 mg BID Active Comment on above: Take 1 tablet by jigna th twice daily. cephalexin 500 mg oral capsule (10 sources) Cephalosporin Antibacterial Start: 04-17-2023 End: 04-27-2023 take 1 capsule by mouth twice daily Keflex 500 mg Cap 500 mg = 1 cap(s), Oral, BID, X 10 day(s), # 20 cap(s), Refills(s) 0, Pharmacy: [facility]/pharmacy #[id number], 170, cm, 04/17/23 9:22:00 EST, [...] Daily, # 30 tab(s), Refills(s) 6, Pharmacy: [facility]/pharmacy #[id number], 170, cm, 04/17/23 9:22:00 EST, Height/Length Dosing, 113.9, kg, 04/17/23 9:22:00 EST, Weight Dosing Start Date: 04/17/23 Status: Ordered Start: 04-23-2021 End: 04-18-2022 take 0.5 tablet by mouth once daily chlorthalidone 25 mg Tab half tab, Oral, Daily, X 30 day(s), # 15 tab(s), Refills(s) 11, Pharmacy: [facility]/pharmacy #[id number], 170, cm, 09/18/20 14:12:00 EDT, Height/Length Dosing, 113, kg, 09/18/20 14:12:00 EDT, Weight Dosing Start Date: 04/23/21 Stop Date: 04/18/22 Status: Ordered cholecalciferol 0.025 mg oral capsule (20 sources) Vitamin D Start: 07-04-2023 take 1 capsule by mouth once daily Cholecalciferol (Vitamin D3) 25 mcg (1,000 unit) capsule Active 25 MCG PO Daily July 04, 2023 12:00am Cholecalciferol, Vitamin D3, 10,000 unit cap Take by mouth once daily. Active Cholecalciferol (VITAMIN D) 2000 units CAPS capsule Take by mouth 0 Active Comment on above: Take by mouth once d valenciay. cinnamon bark 500 mg oral capsule (20 sources) Start: 07-04-2023 take 1 capsule by mouth once daily Cinnamon Bark (Cinnamon) 500 mg capsule Active 500 MG PO Daily July 04, 2023 12:00am take 2 capsules by mouth once da edgardo Cinnamon Bark 500 mg cap Take 2 capsules by mouth once daily. Active Comment on above: Take 2 capsules [...] Jun, Active famotidine 10 mg oral tablet (5 sources) Histamine-2 Receptor Antagonist Start: 07-04-2023 take 1 tablet by mouth twice daily Famotidine 10 mg tablet Active 10 MG PO Twice daily July 04, 2023 12:00am take 1 tablet by mouth every twe lve hours Pepcid AC 10 MG 1 tablet as needed Orally Twice a day Active glimepiride 1 mg oral tablet (9 sources) Sulfonylurea Start: 02-27-2024 take 1 tablet by mouth once daily Glimepiride 1 mg tablet Active 1 MG PO Daily February 27, 2024 9:14am Start: 12-10-2023 End: 02-27-2024 take 1 tablet by mouth once daily in the morning Glimepiride 1 mg tablet Discontinued 0 .ROUTE .COMPLEX December 10, 2023 11:50am February 27, 2024 9:14am TAKE 1 TABLET BY MOUTH EVERY MORNING, ADMINISTER WITH BREAKFAST Start: 11-14-2023 End: 12-10-2023 take 1 tablet by mouth once daily at breakfast Glimepiride 1 mg tablet Discontinued 1 MG PO Every morning 30 30 November 13, 2023 11:00pm December 10, 2023 11:50am administer with breakfast Hair Skin & Nails Gummies (20 sources) Hair Skin & Nail s Gummies Active hydrocortisone 25 mg/ml topical cream (20 sources) Corticosteroid Start: 07-04-2023 Hydrocortisone (Anusol-Hc) 2.5 % cream with perineal applicator Active 1 APPLIC TOPICAL Twice daily July 04, 2023 12:00am Start: 10-09-2021 Anusol-HC 2.5 % 1 application Externally Twice a day for 14 days September, Active Start: 10-09-2021 Anusol-HC 2.5 % 1 application Externally Twice a day for 14 days September, Active [id number] (CEREFOLIN PO) (1 source) T-Fjxypklcrnoi-A 12-B6-B2 (CEREFOLIN PO) Take by mouth daily 0 Active levothyroxine sodium 0.112 m g oral tablet (20 sources) l-Thyroxi ne Start: Levothyroxine 112 mcg tablet Active 0 .ROUTE .COMPLEX 90 February 20, 2024 5:56am TAKE 1 TABLET DAILY ON AN EMPTY STOMACH 90 Start: 07-04-2023 End: 02-20-2024 take 1 tablet by mouth once daily Levothyroxine 112 mcg tablet Discontinued 112 MCG PO Daily July 04, 2023 12:00am February 20, 2024 5:56am Start: 02-17-2019 Synthroid Oral , Daily, Refills(s) [...] tablet by jigna th daily before breakfast. 24 hr loratadine 10 mg / pseudoephedrine sulfate 240 mg extended release oral tablet (20 sources) alpha-Adrenergic Agonist take 1 tablet by mouth once daily loratadine-pseudoeph edrine ER (CLARITIN-D 24) 10-240 mg Tb24 Take 1 tablet by mouth once daily. Active Comment on above: Take 1 tablet by jigna th once daily. Multivitamin With Minerals (Hair,Skin And Nails) tablet (4 sources) Start: 07-04-19 take 1 tablet by mouth once daily Multivitamin With Minerals (Hair,Skin And Nails) tablet Active 1 TAB PO Daily July 04, 2023 12:00am Start: 07-04-2023 take 1 tablet by jigna th once daily Multivitamin With Minerals (Hair,Skin And Nails) tablet Active 1 TAB PO Daily July 04, 2023 1:00am nitrofurantoin, macrocrystals 25 mg / nitrofurantoin, monohydrate 75 mg oral capsule (7 sources) Nitrofuran Antibacterial Start: 03-22-2024 take 1 capsule by mouth every twelve hours at mealtime Nitrofurantoin Monohyd/M-Cryst 100 mg capsule Active 100 MG PO Every 12 hours 02 13March 22, 2024 12:00am must administer with a meal/food Start: 05-03-2023 take 1 capsule by mo [facility] every twelve hours Macrobid 100 MG 1 cap(s) Orally bid for 5 day(s) Apr, Active nortriptyline 10 mg oral capsule (20 sources) Tricyclic Antidepressant Start: 08-22-2023 End: 08-18-2024 take 1 capsule by mouth twice daily Nortriptyline 10 mg capsule Active 10 MG PO Twice daily November 17, 2023 9:21am Start: 11-25-2022 End: 11-17-2023 take 1 capsule by mouth once daily Nortriptyline 10 mg capsule Discontinued 10 MG PO Daily July 04, 2023 12:00am November 17, 2023 9:21am Start: 08-20-2022 End: 11-18-2022 take 1 capsule by mouth once daily at bedtime nortriptyline (PAMELOR) 10 mg capsule Take 1 capsule by mouth daily at bedtime. 90 capsule 0 10/17/2022 Active Comment on above: Take 1 capsule by mo ut daily at bedtime. Take 1 capsule by mo ut two times a day. [place]-3 Fatty Acids (FISH OIL PO) (1 source) [place]-3 Fatty Ac ids (FISH OIL PO) Take by mouth 0 Active pantoprazole (20 sources) Proton Pump Inhibitor Start: 02-17-2019 pantoprazole Daily, Refills(s) 0 Start Date: 02/17/19 Status: Ordered take 1 tablet by mouth once stevenson y pantoprazole DR (PROTONIX) 40 mg tablet Take 40 mg by mouth once daily. Active Comment on above: Take 40 mg [...] (20 sources) beta-Adrenergic Claudia Start: 4 take 1 tablet by mouth four times daily Propranolol 20 mg tablet Active 20 MG PO Four times daily July 04, 2023 12:00am Start: 02-17-2019 propranolol Re fills(s) 0 Start Date: 02/17/19 Status: Ordered Start: 06-22-2018 End: 08-18-2024 take 1 tablet by mouth four times daily propranolol (INDERAL) 10 mg tablet Take 1 tablet by mouth four times daily. 360 tablet 2 02/20/2024 08/18/2024 Active take 1 tablet by jigna th every six hours Propranolol HCl 20 MG 1 tablet Orally qid Active take 1 tablet by jigna th every twelve hours Propranolol HCl 20 MG 1 tablet Orally BID Active Comment on above: Take 1 tablet by jigna th four times daily. 24 hr tolterodine tartrate 2 mg extended release oral capsule (4 sources) Cholinergic Muscarinic Antagonist Start: 4 take 1 capsule by mouth once daily Tolterodine 2 mg capsule,extended release 24hr Active 2 MG PO Daily July 21, 2023 11:00pm turmeric extract 450 mg oral capsule (1 [...] daily. Patient denies taking this any longer Active take 1 capsule by mouth once kwadwo ly VITAMIN B COMPLEX (B COMPLEX-100 ORAL) Take 1 capsule by mouth once daily. Patient denies taking this any longer 0 Active Vitamin B Comple x Active Comment on above: Take 1 capsule by mo [facility] once daily. Patient denies taking this any longer Vitamin B Complex tablet (2 sources) Start: 07-04-2023 take 1 tablet by mouth once daily Vitamin B Complex tablet Active 1 TAB PO Daily July 04, 2023 12:00am Vitamin D (20 sources) Vitamin D Active vitamin e 268 mg oral capsule (20 sources) Vitamin E, dl, acetate, (VITAMIN E) 400 unit capsule Take 400 Units by mouth as needed. Active Vitamin E, dl, a cetate, (VITAMIN E) 400 unit capsule Take 400 Units by mouth as needed. 0 Active Vitamin E Active Comment on above: Take 400 Units by [facility] as needed. Completed/Discontinued Medications Medication Drug Class(es) Dates Sig (Normalized) Sig (Original) azithromycin 250 mg oral tablet (6 sources) Macrolide Antimicrobial Start: 09-03-2023 End: 03-22-2024 Azithromycin 250 mg tablet Discontinued 250 MG PO daily 6 5 September 02, 2023 11:00pm March 22, 2024 9:59pm Take 2 today and then 1 for the next 4 days Start: 01-03-2023 Azithromycin 2 50 MG as directed Orally daily for 5 days Dec, Active cyclobenzaprine hydrochloride 10 mg oral tablet (2 [...] three times daily as needed for pain. Problems Active Problems Problem Classification Problem Date [...] 05-29-2010 Chronic Other aftercare (1 source) Other tube rebuilder (current) drug therapy; Translations: [OTH STATISTICAL TYPIST CURRENT DRUG THERAPY] Onset: 3 Episodic Other connective tissue disease (20 sources) History of total knee arthroplasty; Translations: [Presence of unspecified artificial knee joint] Onset: 1 02-05-2011 Chronic Other connective tissue disease (1 source) Presence of right artificial knee joint; Translations: [PRESENCE RT ARTIFICIAL KNEE JOINT] Onset: 3 Chronic Other ear and sense organ disorders (20 sources) Sensorineural hearing loss; Translations: [Unspecified sensorineural [...] Other hereditary and degenerative nervous system conditions (5 sources) Essential tremor; Translations: [Essential tremor] Onset: 7 Chronic Other nervous system disorders (20 sources) Carpal tunnel syndrome of right wrist; [...] Chronic Other nutritional; endocrine; and metabolic disorders (4 sources) Obesity; Translations: [Obesity, unspecified] 07-08-2023 Chronic Other nutritional; endocrine; and metabolic disorders (3 sources) Obesity, unspecified; Translations: [Obesity, unspecified] 07-08-2023 [...] (20 sources) Hypothyroidism; Translations: [Hypothyroidism, unspecified] Onset: 02-17-2019 Chronic Urinary tract infections (4 sources) Acute cystitis without hematuria Episodic Past or Other Problems Problem Classification Problem Date Documented Da te Episodic/Chronic Cardiac dysrhythmias (20 sources) Bradycardia; Translations: [Bradycardia, unspecified] Onset: 02-26-2015 07-03-2016 Episodic Hemorrhoids (1 source) Unspecified hemorrhoids Onset: 10-09-2021 Resolved: 10-09-2021 Episodic Other lower respiratory disease (1 source) Solitary pulmonary nodule; Translations: [Solitary pulmonary nodule] Onset: 07-14-2017 Episodic Other lower respiratory disease (20 sources) Dyspnea on exertion; Translations: [Other forms of dyspnea] Onset: 02-26-2015 02-26-2015 Episodic Pulmonary heart disease (20 sources) Pulmonary embolism; Translations: [Other pulmonary embolism without acute cor pulmonale] Onset: 03-02-2015 03-02-2015 Episodic Results Test Name Value Interpretation Reference Range Facility CNOV 02-20-2024 CNOV Office Visit (NEURAV ) RUFINO COLLINS ([id number]) 1940 F Date Time Provider Department 02/20/24 2:20 PM RACHID ODELL NEURAV During your visit today, we recorded the following information about you: Pulse Blood pressure 89/minute 130/60 Rachid Odell MD 02/20/2024 2:10 PM Signed NEUROLOGY PROGRESS NOTE Rufino Collins is a 83 year old female. Who has a history of tremor comes in for follow up. Interval History [...] sometimes difficulty with balance. Patient doing well paresthesias of the feet 20 mg of nortriptyline has been helping. She continues to be happy with 40 mg of propranolol a day for tremors. Medications have been refilled. ACTIVE PROBLEM LIST Hearing Loss, Sensorineural, Unilateral [...] on File Prior to Visit Medication Sig TRUE METRIX GLUCOSE TEST STRIP test strip USE 1 STRIP TO CHECK BLOOD SUGAR ONCE DAILY*E11.65* glimepiride (AMARYL) 1 mg tablet Take 1 mg by mouth daily with breakfast. Acetaminophen-Caffein e (TENSION HEADACHE PAIN RELIEVER) 500-65 mg tab Take 2 tablets by mouth twice daily. 2 tablets in am, 1 tablet after lunch Vitamin E, dl, acetate, (VITAMIN E) 400 unit capsule Take 400 Units by mouth as needed. vit B complx-folic ac-C-biotin 1 mg-100 mg- 300 mcg tab Take by mouth. loratadine-pseudoephe drine ER (CLARITIN-D 24) 10-240 mg Tb24 Take 1 tablet by mouth once daily. busPIRone (BUSPAR) 15 mg tablet Take 1 tablet by mouth twice daily. Cholecalciferol, Vitamin D3, 10,000 unit cap Take by mouth once daily. levothyroxine (SYNTHROID) 100 mcg tablet Take 1 tablet by mouth daily before breakfast. (Patient taking differently: Take 112 mcg by mouth daily before breakfast.) VITAMIN B COMPLEX (B COMPLEX-100 ORAL) Take 1 capsule by mouth once daily. Patient denies taking this any longer Cinnamon Bark 500 mg cap Take 2 capsules by mouth once daily. pantoprazole DR (PROTONIX) 40 mg tablet Take 40 mg by mouth once daily. No current facility-administered medications on file prior [...] HPI. All systems reviewed and are negative 02/20/24 1354 BP: 130/60 BP Site: Left Arm BP Position: Sitting BP Cuff Size: Large Adult Pulse: 89 PHYSICAL EXAMINATION: General appearance: well appearing, alert, in no acute distress Neck: Supple Carotid Auscultation: Without bruits Lungs: Lungs clear to auscultation CVS: RRR without murmur Neurological exam: MENTAL STATUS: Alert, oriented to person, place and time and Follows commands CRANIAL NERVES: PERRLA, EOM's intact, Face symmetric, a (more content not included)... Normal [facility]20[facility] RUFINO COLLINS ([id number]) 1940 F Date Time Provider Department 02/16/24 TAMRA GREWAL During your visit today, we recorded the following information about you: Isamar Ríos, ERROL 02/16/2024 9:26 AM Signed Pt calling Has pacemaker about 10 yrs Last office visit on 04/16/23, device check on Checks b/p at home Blood pressure monitor shows irregular heart beat the last 2 days No symptoms/ denies palpations/feeling of irregular HR-feels regular/dizziness/mushtaq st pain/ sob Did let her pcp know/ went to hospital on Friday at [facility] and had an EKG done and HR was 88 bpm but told by pcp everything was ok. Has an upcoming appointment for device check and provider appointment with cardiology on 04/19/24 Asking if anything showed up on monitor or if she should be concerned and can go about her activities (bike riding, etc) Pt can be reached at: [phone], ok to leave a message Alla Cuenca RN 02/16/2024 4:25 PM Signed Routing to the [facility] Yadira Burnett RN 02/16/2024 5:06 PM Signed Spoke with patient. Device has not connected recently. Attempted to trouble shoot several ways. Unable to get transmission to send. Gave number to [employer] to call and have them help troubleshoot monitor. Casandra Lambert 02/17/2024 9:22 AM Signed Patient called back. Reached out to Operating Room Coordinator and was told that the device is now connected. Please follow up with device readings and advise. Patient reports feeling well and does not report any symptoms at this time. Isamar Ríos, ERROL 02/18/2024 8:46 AM Signed Pt calling Checking on message below asking if anything showed up about irregular heart rate States not her b/p monitor is not showing an irregular heart rate Also asking how she would know if her device is not connected Pt can be reached at: [phone], ok to leave a detailed message Mahsa Patterson 02/19/2024 8:40 AM Signed Pt calling in regards to below. Very anxious to get a response. Please review and advise with pt today if possible. Latoya Philippe RN 02/19/2024 9:41 AM Signed Called patient, answered her questions. Had a lot of questions about her remote monitor and how exactly it works, I'm unsure. Asking for a call from the device clinic to explain. Routing to them. Allergies As of Date: 02/16/2024 Noted Allergy Reaction MOXIFLOXACIN 12/21/2003 5 - Intolerance Comments: thought I was having a heart attack w/ Avelox PERCOCET (OXYCODONE-ACETAMINOP HEN)12/02/2006 5 - Intolerance Comments: Drops BP CAPSAICIN 02/09/2015 9 - Itching PRAVACHOL (PRAVASTATIN SODIUM) 06/15/2009 5 - Intolerance Comments: Muscle cramps CEPHALEXIN 07/22/2016 9 - Itching CLAVULANIC ACID 07/22/2016 9 - Itching FLAGYL (METRONIDAZOLE) 07/22/2016 9 - Itching LEVOFLOXACIN 07/22/2016 9 - Itching SULFA (SULFONAMIDE ANTIBIOTICS) 12/21/2003 8 - GI Upset Date Reviewed: 04/16/2023 Reviewed by: Tayla Lomeli MA - Fully Assessed Reason for Visit: question [Other] Prescriptions as of 02/19/2024 - nortriptyline (PAMELOR) 10 mg capsule Take 1 capsule by mouth two times a day. - propranolol (INDERAL) 10 mg tablet Take [...] any longer Problem List As Of Date 02/16/2024 Noted Resolved Hearing Loss, Sensorineural, Unilateral [H90.5] 05/16/2009 Osteoarth NOS-l/leg [[id number]] 05/29/2010 S/P TKR (total knee replacement) using cement [*02/05/2011 Hypothyroidism [E03.9] 02/26/2015 Hypertension [I10] 02/26/2015 Dyspnea on exertion [R06.09] 02/26/2015 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] 02/26/2015 Bradycardia [R00.1] 02/26/2015 Pulmonary embolus (HCC) [I26.99] 03/02/2015 Dysthymia [F34.1] 07/22/2016 Carpal tunnel syndrome of right wrist [G56.01] 05/30/2020 Encounter Status:Closed by YADIRA BURNETT on 02/16/24 [facility] 02-14-2024 [facility] Telephone (TOMN) TAVIAREVARUFINO ([id number]) 1940 F Date Time Provider Department 02/14/[address] [facility] During your visit today, we recorded the following information about you: Gurpreet Cruz APRN.CNP 02/14/2024 11:28 AM Signed [facility] Contact Center Phone Encounter DATE of SERVICE: 02/14/2024 TIME of SERVICE: 11:25 AM Status: Non-urgent, needs attention Service/Provider: Heart Failure Addis Herman M.D. Reason for call: Test Results Contact information: Rufino Collins Resolution: Reinforced Education Comments: patient has a PPM. Her bedside monitor started beeping this morning. She reset it and beeping stopped. Reports it happened in the past and she was told to reset it. She was completely asymptomatic. Instructed to continue to monitor and seek emergency help if she will be symptomatic. Patient understood and agreed. Gurpreet Cruz APRN.CNP Date of Resolution: 02/14/2024 Time of Resolution 11:25 AM Allergies As of Date: 02/14/2024 Noted Allergy Reaction MOXIFLOXACIN 12/21/2003 5 - Intolerance Comments: thought I was having a heart attack w/ Avelox PERCOCET (OXYCODONE-ACETAMINOP HEN)12/02/2006 5 - Intolerance Comments: Drops BP CAPSAICIN 02/09/2015 9 - Itching PRAVACHOL (PRAVASTATIN SODIUM) 06/15/2009 5 - Intolerance Comments: Muscle cramps CEPHALEXIN 07/22/2016 9 - Itching CLAVULANIC ACID 07/22/2016 9 - Itching FLAGYL (METRONIDAZOLE) 07/22/2016 9 - Itching LEVOFLOXACIN 07/22/2016 9 - Itching SULFA (SULFONAMIDE ANTIBIOTICS) 12/21/2003 8 - GI Upset Date Reviewed: 04/16/2023 Reviewed by: Tayla Lomeli MA - Fully Assessed Reason for Visit: Results [95] Prescriptions as of 02/14/2024 - nortriptyline (PAMELOR) 10 mg capsule Take 1 capsule by mouth two times a day. 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] 02/26/2015 Bradycardia [R00.1] 02/26/2015 Pulmonary embolus (HCC) [I26.99] 03/02/2015 Dysthymia [F34.1] 07/22/2016 Carpal tunnel syndrome of right wrist [G56.01] 05/30/2020 Encounter Status:Closed by GURPREET CRUZ on 02/14/24 Normal [facility] Glucose mean value [Mass/vol ume] in Blood Estimated from glycated hemoglobinon 11-14-2023 Average glucose Estimated from glycated hemoglobin (Bld) [Mass/Vol] 169 mg/dL [facility] - Hematology and Cell countson 11-14-2023 HbA1c (Bld) [Mass fraction] 7.5 % High 4.5-6.2 [facility] Comment on above: ADA RECOMMENDED LIMI T 4.0 - 6.0ADA THERAPEUTIC TARGET < 7.0ACTION SUGGESTED> 7.0 CNOVon 08-22-2023 CNOV Office Visit (NEURAV ) RUFINO COLLINS ([id number]) 1940 F Date Time Provider Department 08/22/23 2:20 PM RACHID ODELL During your visit today, we recorded the following information about you: Pulse Blood pressure 78/minute 143/76 Alycia Raygoza LPN 08/22/2023 2:57 PM Signed 02/19/2023 PROMIS [...] weight loss, malaise or fevers., SEE HPI ROBB (more content not included)... Normal [facility] Estimated glomerular filtrat ion rate (GFR) non- Americanon 07-08-2023 GFR/1.73 sq M.predicted among non-blacks MDRD (S/P/Bld) [Vol rate/Area] 53 mL/min/{1.73_m2} >=60 [facility] Glucose mean value [Mass/vol ume] in Blood Estimated from glycated hemoglobinon 07-08-2023 Average glucose Estimated from glycated hemoglobin (Bld) [Mass/Vol] 157 mg/dL [facility] - Chemistry and C hemistry - challengeon 07-08-2023 Calcium [Mass/Vol] 9.7 mg/dL 8.5-10.1 [facility] Chloride [Moles/Vol] 101 mmol/L 98-107 [facility] CO2 [Moles/Vol] 31.6 mmol/L 21.0-32.[address] [facility] Creatinine [Mass/Vol] 1.00 mg/dL 0.55-1.02 [facility] GFR/1.73 sq M.predicted MDRD (S/P/Bld) [Vol rate/Area] mL/min/{1.73_m2} >=60 [facility] Glucose [Mass/Vol] 141 mg/dL 74-106 [facility] Potassium [Moles/Vol] 4.2 mmol/L 3.5-5.1 [facility] Sodium [Moles/Vol] 140 mmol/L 136-145 [facility] Urea nitrogen [Mass/Vol] 28.0 mg/dL 7.0-18.0 [facility] Urea nitrogen/Creatinine [Mass ratio] 28.0 mg/mg [facility] - Hematology and Cell countson 07-08-2023 HbA1c (Bld) [Mass fraction] 7.1 % 4.5-6.2 [facility] Comment on above: ADA RECOMMENDED LIMI T 4.0 - 6.0ADA THERAPEUTIC TARGET < 7.0ACTION SUGGESTED> 7.0 Serum or plasma anion gap de terminationon 07-08-2023 Anion gap [Moles/Vol] 11.6 mmol/L [facility] No Panel Informationon 07-06 BLANK _ [facility] ic Implant Date 02/27/2015 [facility] Model 2088TC Tendril STS [facility] PACEMAKER REMOTE CHECKon AV Delay Adaptive Paced Minimum (ms) 150 ms [facility] favian AV Delay Adaptive Sensed Minimum (ms) 130 ms [facility] AV Delay Paced (ms) 100 ms [facility] AV Delay Sensed (ms) 100 ms [facility] Battery Voltage (volts) 2.87 V [facility] Dirk RA Pacing Amplitude (volts) 2.0 V [facility] Dirk RA Pacing Polarity BI [facility] Dirk RA Pacing Pulse Width (ms) 0.5 ms [facility] Dirk RA Sensing Amplitude (mvolts) 0.4 mV [facility] favian Dirk RA Sensing Polarity BI [facility] Dirk RV Pacing Amplitude (volts) 1.625 [facility] ic Dirk RV Pacing Polarity BI [facility] Dirk RV Pacing Pulse Width (ms) 0.5 ms [facility] Dirk RV Sensing Amplitude (mvolts) 2.0 mV [facility] favian Dirk RV Sensing Polarity BI [facility] Lead1 Mfg STJ [facility] ic Lead2 Mfg STJ [facility] ic Location RA [facility] Location RV [facility] Lower Rate (bpm) 60 {beats}/min [facility] Max Sensor Rate (bmp) 120 {beats}/min [facility] Model 2240 Assurity [facility] lin Pacing Mode DDD [facility] favian PM-Device Mfg STJ [facility] linic PM-Percent Pacing (A) 6.4 % [facility] PM-Percent Pacing (V) 99.0 % [facility] RA Bipolar Impedance ohms 450 ohm [facility] RV Bipolar Impedance ohms 890 ohm [facility] Serial Number [id number] [facility] linic Serial Number [id number] [facility] linic Serial Number [id number] [facility] linic Thresh RA Capture Amplitude (volts) 1.0 V [facility] ic Thresh RA Capture Duration (ms) 0.5 ms [facility] Thresh RA Sensing Amplitude (mvolts) 0.9 mV [facility] favian Thresh RV Capture Amplitude (volts) 1.375 V [facility] ic Thresh RV Capture Duration (ms) 0.5 ms [facility] Thresh RV Sensing Amplitude (mvolts) 12.0 mV [facility] favian Tracking Rate (bpm) 120 {beats}/min [facility] Urinalysis - AUTOMATEDon Appearance (U) cloudy [employer] Other Bilirubin Ql (U) Negative [employer] Other Color (U) bright orange [facility] Other Glucose Ql (U) 100 [employer] Other Hemoglobin Ql (U) small [employer] Other Ketones Ql (U) Negative [employer] Other Leukocyte esterase Test strip Ql (U) large [employer] Other Nitrite Ql (U) Positive [employer] Other pH (U) 5.0 [pH] [facility] Other Protein Ql (U) 100 [employer] Other Specific gravity (U) [Rel density] >=1.030 [employer] Other Urobilinogen (U) [Mass/Vol] 1.0 mg/dL [facility] Other Urinalysis - AUTOMATED [facility] Other Urine Cultureon 05-03-2023 Urine Culture >100,000 [facility] Other Bacteria identified Cx Nom (U) Reason for Exam Dysuria Urine ORGANISM: Streptococcus anginosus (O:MECCA) [place] Count >100,000 Organism Comments Organism not Routinely Tested for Susceptibilities PERFORMED BY: [place] [address] PATHOLOGIST MINUTE CLERK FOR BASIC TRAFFIC LAKSHMI ACEVES M.D. Normal [facility] Comment on above: Performed By: #### C UU #### [address] Bacteria identified Cx Nom (U) [facility] Other Ambulatory Visit Summaryon 07-01-2022 Ambulatory Visit Summary RUFINO COLLINS :1940 [...] for choosing us for your care. Normal [facility] C Urineon 04-20-2023 Bacteria identified Cx [...] Locations R1: This test was performed at: [facility], [address] [place] [address], [facility]- , , [facility] Comment on above: Performed By: #### 2 [id number] #### [facility] [address] [place] [address] Ambulatory Visit Summaryon 1 06-18-2022 Ambulatory Visit Summary RUFINO COLLINS :1940 Visit Date:04/17/2023 Ambulatory Visit Instructions Your Diagnosis UTI symptoms Incomplete bladder emptying Kidney stone Tests Performed Urnls Dip Stick Auto w/o Microscopy POC [id number] Your Care Team Attending Physician - PEEWEE [...] 11:00 AM EST Where: [facility] Patient Educationon 04-17-20 Patient [...] Spinach (cooked), rhubarb, beets, sweet potatoes, and [place] chard. ? Peanuts. ? Potato chips, kenyan fries, and baked potatoes with skin on. ? Nuts and nut products. ? Chocolate. ? If you regularly take a diuretic medicine, make sure to eat at least 1 or 2 servings of fruits or vegetables that are high in potassium each day. These include: ? Avocado. ? Banana. ? [place], prune, carrot, or tomato juice. ? Baked [...] fish oil, or vitamin B6. ? Take [id number] and prescription medicines only as told by your health care provider. These include supplements. What foods sh (more content not included)... Normal [facility] Urology Office/Clinic Noteon 04-17-2023 Urology Office/Clinic [...] removal 10/24/16 KUB 11/20/21 and 11/19/22 at [facility] - negative Pt takes Chlorthalidone 25mg [...] urine M (more content not included)... 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] 05/16/2009 Osteoarth NOS-l/leg [[id number]] 05/29/2010 S/P TKR (total knee replacement) using cement [*02/05/2011 Hypothyroidism [E03.9] 02/26/2015 Hypertension [I10] 02/26/2015 Dyspnea on exertion [R06.09] 02/26/2015 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] 02/26/2015 Bradycardia [R00.1] 02/26/2015 Pulmonary embolus (HCC) [I26.99] 03/02/2015 Dysthymia [F34.1] 07/22/2016 Carpal tunnel syndrome of right wrist [G56.01] 05/30/2020 Encounter Status:Closed by TAMRA GREWAL on 04/16/23 Normal [facility] [id number] 04-16-2023 ECG01 Ventricular Rate : 8 0 BPM Atrial Rate : 80 BPM P-R Interval : 154 ms QRS Duration : 172 ms Q-T Interval : 416 ms QTC Calculation(Bazett) : 479 ms Calculated P [place] : 60 degrees Calculated R [place] : -89 degrees Calculated T [place] : 78 degrees ATRIAL-SENSED VENTRICULAR-PACED RHYTHM ABNORMAL ECG Confirmed by NATO ORONA MD ([id number]) on 04/17/2023 7:18:20 PM NAME : RUFINO COLLINS PID : [id number] : 1940 Gender : Female Race : [...] Niall Grewal Acquired by : , Normal [facility] No Panel Informationon 04-16 BLANK _ [facility] ic Implant Date 02/27/2015 [facility] inic Model 2088TC Tendril [facility] PACEMAKER CLINIC CHECKon AMS Fallback Rate (bpm) 70 {beats}/min [facility] AV Delay Adaptive Paced Minimum (ms) 150 ms [facility] Delay Adaptive Rate Maximum (bpm) 120 {beats}/min [facility] AV Delay Adaptive Rate Minimum (bpm) 90 {beats}/min [facility]ina AV Delay Adaptive Sensed Minimum (ms) 130 ms [facility] inic AV Delay Adaptive Status Medium [facility] AV Delay Paced (ms) 100 ms [facility] AV Delay Sensed (ms) 100 ms [facility] Battery Voltage (volts) 2.89 V [facility] Dirk RA Pacing Amplitude (volts) 2.0 V [facility] Dirk RA Pacing Polarity BI [facility] Dirk RA Pacing Pulse Width (ms) 0.5 ms [facility] c Dirk RA Sensing Blanking Period (ms) 150 ms [facility] Dirk RA Sensing Polarity BI [facility] Dirk RA Sensing Refractory Period (ms) 190 ms [facility] Dirk RV Pacing Amplitude (volts) 1.375 [facility] ic Dirk RV Pacing Polarity BI [facility] Dirk RV Pacing Pulse Width (ms) 0.5 ms [facility] c Dirk RV Sensing Amplitude (mvolts) 2.0 mV [facility] favian Dirk RV Sensing Blanking Period (ms) 44 ms [facility] Dirk RV Sensing Polarity BI [facility] Dirk RV Sensing Refractory Period (ms) 250 ms [facility] Hysteresis Rate (bpm) Off [facility] Lead1 Mfg STJ [facility] ic Lead2 Mfg STJ [facility] ic Location RA [facility] Location RV [facility] Lower Rate (bpm) 60 {beats}/min [facility] Max Sensor Rate (bmp) 120 {beats}/min [facility] Model 2240 Assurity [facility] Pacemaker Dependent? YES [facility] Pacing Mode DDD [facility] favian PM-Device Mfg STJ [facility] linic PM-Percent Pacing (A) 6.3 % [facility] PM-Percent Pacing (V) 99.96 % [facility] PM-PMT Intervention Atrial Pace [facility] PM-PVC Intervention Off [facility] PM-Rate Modulation Acceleration Reaction Fast [facility] PM-Rate Modulation Deceleration Medium [facility] PM-Rate Modulation [place] Auto (+2) [facility] PM-Rate Modulation Threshold Auto (+0.0) [facility] Rhythm Sinus rhythm with complete heart block [facility] Serial Number [id number] [facility] Serial Number [id number] [facility] Serial Number [id number] [facility] lin Thresh RA Capture Amplitude (volts) 1.0 V [facility] ic Thresh RA Capture Duration (ms) 0.5 ms [facility] Thresh RA Sensing Amplitude (mvolts) 0.7 mV [facility] favian Thresh RV Capture Amplitude (volts) 1.25 V [facility] ic Thresh RV Capture Duration (ms) 0.5 ms [facility] Thresh RV Sensing Amplitude (mvolts) 12.0 mV [facility] favian Tracking Rate (bpm) 120 {beats}/min [facility] Lab Reportson 04-15-2023 Lab Reports [id number] Normal [facility] UA RANDOM W/MICROSCOPICon Clarity (U) CLEAR CLEAR [employer] Other Color (U) DK. ORANGE YELLOW [employer] Other Ketones Ql (U) COLOR INTERFERENCE mg/dL Abnormal NEGATIVE mg/dL [employer] Other Leukocyte esterase Test strip Ql (U) COLOR INTERFERENCE Abnormal NEGATIVE [employer] Other UA RANDOM W/MICROSCOPIC 20-50 #/HPF Abnormal NONE SEEN #/HPF [employer] Other UA RANDOM W/MICROSCOPIC 5-10 #/HPF Abnormal 0-2 #/HPF [employer] Other UA RANDOM W/MICROSCOPIC see note [employer] Other UA RANDOM W/MICROSCOPIC 1.010 1.005-1.025 [employer] Other UA RANDOM W/MICROSCOPIC COLOR INTERFERENCE Abnormal NEGATIVE [employer] Other UA RANDOM W/MICROSCOPIC COLOR INTERFERENCE mg/dL Abnormal NEGATIVE mg/dL [employer] Other UA RANDOM W/MICROSCOPIC COLOR INTERFERENCE EU/dL Abnormal 0.2-1.0 EU/dL [employer] Other UA RANDOM W/MICROSCOPIC SMALL #/HPF Abnormal NONE SEEN #/HPF [employer] Other UA RANDOM W/MICROSCOPIC NONE SEEN NONE SEEN [employer] Other UA RANDOM W/MICROSCOPIC FEW #/LPF Abnormal NONE/RARE #/LPF [employer] Other UA RANDOM W/MICROSCOPIC Seen #/HPF Abnormal None Seen #/HPF [employer] Other UA RANDOM W/MICROSCOPIC NONE SEEN #/LPF NONE SEEN #/LPF [employer] Other UA RANDOM W/MICROSCOPIC RARE [employer] Other UA RANDOM W/MICROSCOPIC ALREADY ORDERED [facility] Other No Panel Informationon 04-05 BLANK _ [facility] ic Implant Date 02/27/2015 [facility] inic Model 2088TC [facility]ril [facility] PAC[facility]ER REMOTE CHECKon AV Delay Adaptive Paced Minimum (ms) 150 ms [facility] favian AV Delay Adaptive Sensed Minimum (ms) 130 ms [facility] in AV Delay Paced (ms) 100 ms [facility] AV Delay Sensed (ms) 100 ms [facility] Battery Voltage (volts) 2.89 V [facility] Dirk RA Pacing Amplitude (volts) 1.875 [facility] Dirk RA Pacing Polarity BI [facility] Dirk RA Pacing Pulse Width (ms) 0.5 ms [facility] Dirk RA Sensing Amplitude (mvolts) 0.4 mV [facility] favian Dirk RA Sensing Polarity BI [facility] Dirk RV Pacing Amplitude (volts) 1.375 [facility] Dirk RV Pacing Polarity BI [facility] Dirk RV Pacing Pulse Width (ms) 0.5 ms [facility] Dirk RV Sensing Amplitude (mvolts) 2.0 mV [facility] favian Dirk RV Sensing Polarity BI [facility] Lead1 Mfg STJ [facility] ic Lead2 Mfg STJ [facility] ic Location RA [facility] Location RV [facility] Lower Rate (bpm) 60 {beats}/min [facility] Max Sensor Rate (bmp) 120 {beats}/min [facility] Model 2240 Assurity [facility] linic Pacing Mode DDD [facility] favian PM-Device Mfg STJ [facility] linic PM-Percent Pacing (A) 7.7 % [facility] PM-Percent Pacing (V) 99.0 % [facility] RA Bipolar Impedance ohms 480 ohm [facility] RV Bipolar Impedance ohms 930 ohm [facility] Serial Number [id number] [facility] linic Serial Number [id number] [facility] Serial Number [id number] [facility] linic Thresh RA Capture Amplitude (volts) 0.875 V [facility] ic Thresh RA Capture Duration (ms) 0.5 ms [facility] Thresh RA Sensing Amplitude (mvolts) 0.5 [facility] Thresh RV Capture Amplitude (volts) 1.125 V [facility] ic Thresh RV Capture Duration (ms) 0.5 ms [facility] Thresh RV Sensing Amplitude (mvolts) 12.0 mV [facility] Tracking Rate (bpm) 120 {beats}/min [facility] Urinalysis - DIPSTICKon 02-09 Appearance (U) clear [employer] Other Bilirubin Ql (U) Negative [employer] Other Color (U) yellow [employer] Other Glucose Ql (U) Negative [employer] Other Hemoglobin Ql (U) Negative [employer] Other Ketones Ql (U) Negative [employer] Other Leukocyte esterase Test strip Ql (U) + [employer] Other Nitrite Ql (U) Negative [employer] Other pH (U) 5.0 [pH] [employer] Other Protein Ql (U) Negative [employer] Other Specific gravity (U) [Rel density] 1.015 [employer] Other Urobilinogen (U) [Mass/Vol] off chart [employer] Other Urinalysis - DIPSTICK [employer] Other No Panel Informationon 01-30 BLANK _ [facility] ic Implant Date 02/27/2015 [facility] inic Model 2088TC Tendril [facility] PACEMAKER REMOTE CHECKon AV Delay Adaptive Paced Minimum (ms) 150 ms [facility] favian AV Delay Adaptive Sensed Minimum (ms) 130 ms [facility] AV Delay Paced (ms) 100 ms [facility] AV Delay Sensed (ms) 100 ms [facility] Battery Voltage (volts) 2.9 V [facility] Dirk RA Pacing Amplitude (volts) 2.0 V [facility] Dirk RA Pacing Polarity BI [facility] Dirk RA Pacing Pulse Width (ms) 0.5 ms [facility] Dirk RA Sensing Amplitude (mvolts) 0.4 mV [facility] favian Dirk RA Sensing Polarity BI [facility] Dirk RV Pacing Amplitude (volts) 1.75 V [facility] Dirk RV Pacing Polarity BI [facility] Dirk RV Pacing Pulse Width (ms) 0.5 ms [facility] Dirk RV Sensing Amplitude (mvolts) 2.0 mV [facility] favian Dirk RV Sensing Polarity BI [facility] Lead1 Mfg STJ [facility] ic Lead2 Mfg STJ [facility] ic Location RA [facility] Location RV [facility] Lower Rate (bpm) 60 {beats}/min [facility] Max Sensor Rate (bmp) 120 {beats}/min [facility] Model 2240 Assurity [facility] lin Pacing Mode DDD [facility] favian PM-Device Mfg STJ [facility] linic PM-Percent Pacing (A) 5.8 % [facility] PM-Percent Pacing (V) 99.0 % [facility] RA Bipolar Impedance ohms 460 ohm [facility] RV Bipolar Impedance ohms 940 ohm [facility] Serial Number [id number] [facility] [facility] Serial Number [id number] [facility] Serial Number [id number] [facility] Thresh RA Capture Amplitude (volts) 1.0 V [facility] ic Thresh RA Capture Duration (ms) 0.5 ms [facility] Thresh RA Sensing Amplitude (mvolts) 1.5 mV [facility] Thresh RV Capture Amplitude (volts) 1.5 V [facility] ic Thresh RV Capture Duration (ms) 0.5 ms [facility] Thresh RV Sensing Amplitude (mvolts) 12.0 mV [facility] Tracking Rate (bpm) 120 {beats}/min [facility] No Panel Informationon 01-22 BLANK _ [facility] ic Implant Date 02/27/2015 [facility] Model 2088TC Tendril STS [facility] PACEMAKER REMOTE CHECKon AV Delay Adaptive Paced Minimum (ms) 150 ms [facility] AV Delay Adaptive Sensed Minimum (ms) 130 ms [facility] AV Delay Paced (ms) 100 ms [facility] AV Delay Sensed (ms) 100 ms [facility] Battery Voltage (volts) 2.9 V [facility] Dirk RA Pacing Amplitude (volts) 2.0 V [facility] Dirk RA Pacing Polarity BI [facility] Dirk RA Pacing Pulse Width (ms) 0.5 ms [facility] Dirk RA Sensing Amplitude (mvolts) 0.4 mV [facility] Dirk RA Sensing Polarity BI [facility] Dirk RV Pacing Amplitude (volts) 1.625 [facility] Dirk RV Pacing Polarity BI [facility] Dirk RV Pacing Pulse Width (ms) 0.5 ms [facility] Dirk RV Sensing Amplitude (mvolts) 2.0 mV [facility] Dirk RV Sensing Polarity BI [facility] Lead1 Mfg STJ [facility] ic Lead2 Mfg STJ [facility] Location RA [facility] Location RV [facility] Lower Rate (bpm) 60 {beats}/min [facility] Max Sensor Rate (bmp) 120 {beats}/min [facility] Model 2240 Assurity [facility] lin Pacing Mode DDD [facility] PM-Device Mfg STJ [facility] PM-Percent Pacing (A) 5.4 % [facility] PM-Percent Pacing (V) 99.0 % [facility] RA Bipolar Impedance ohms 460 ohm [facility] RV Bipolar Impedance ohms 860 ohm [facility] Serial Number [id number] [facility] Serial Number [id number] [facility] Serial Number [id number] [facility] Thresh RA Capture Amplitude (volts) 1.0 V [facility] ic Thresh RA Capture Duration (ms) 0.5 ms [facility] Thresh RA Sensing Amplitude (mvolts) 0.7 mV [facility] Thresh RV Capture Amplitude (volts) 1.375 V [facility] Thresh RV Capture Duration (ms) 0.5 ms [facility] Thresh RV Sensing Amplitude (mvolts) 12.0 mV [facility] Tracking Rate (bpm) 120 {beats}/min [facility] Patient Educationon 11-26-19 Patient Education Nephrology Dietary [...] Spinach (cooked), rhubarb, beets, sweet potatoes, and [place] chard. ? Peanuts. ? Potato chips, kenyan fries, and baked potatoes with skin on. ? Nuts and nut products. ? Chocolate. ? If you regularly take a diuretic medicine, make sure to eat at least 1 or 2 servings of fruits or vegetables that are high in potassium each day. These include: ? Avocado. ? Banana. ? Putnam, prune, carrot, or tomato juice. ? Baked [...] fish oil, or vitamin B6. ? Take [id number] and prescription medicines only as told by your health care provider. These include supplements. What foods should I limit? Limit your in (more content not included)... Normal [facility] Reminderson 11-25-2022 Reminders - From: Lidia Smith To: ANGI Michel; Sent: 11/25/2022 14:28:14 EDT Show up: 09/25/2024 14:27:00 EDT Subject: KUB Reminder Message Please Remember to:_have pt get KUB prior to next appt (follow up in 2 years from 11/25/22). Normal [facility] Urology Office/Clinic Noteon 11-25-2022 Urology Office/Clinic [...] removal 10/2016 KUB 11/20/21 and 11/19/22 at [facility] - negative Pt takes Chlorthalidone 25mg [...] URL [facility] [address], [place] [address]- [phone] Additional Instructions: 2 years with KUB Patient Education Dietary Guidelines to Help Prevent Kidney Stones I, Lidia Smith, personally scribed for Dr. Michel on 11/25/2022 [...] Nitrite Urine Dipstick: Negative (11/25/22 13:15:00) Specific Jeremiah Urine Dipstick: 1.015 (11/25/22 13:15:00) Urine Appearance Urine Dipstick: Clear (11/25/22 13:15:00) Urine Color Urine Dipstick: Yellow (11/25/22 13:15:00) Urobilinogen Urine Dipstick: Normal 0.2-1 EU/dl (11/25/22 13:15:00) pH Urine Dipstick: 6 (11/25/22 (more content not included)... Normal [facility] Comment on above: Result Comment: Elec tronically Signed By: Natalie MICHEL MD\.br\Date and Time Signed: 11/25/22 14:28 EDT\.br\Electronically Co-Signed By: Lidia Smith\.br\Date and Time Co-Signed: 11/25/22 14:27 EDT RAD - MISCon 11-22-2022 RAD - MISC [id number] .[id number]:127 Normal [facility] - MISC [id number] .[id number]:127 Normal [facility] No Panel Informationon 10-09 BLANK _ [facility] ic Implant Date 02/27/2015 [facility] in Model 2088TC Tendril STS [facility] PACEMAKER REMOTE CHECKon AV Delay Adaptive Paced Minimum (ms) 150 [facility] Delay Adaptive Sensed Minimum (ms) 130 ms [facility] in AV Delay Paced (ms) 100 ms [facility] AV Delay Sensed (ms) 100 ms [facility] Battery Voltage (volts) 2.9 V [facility] Dirk RA Pacing Amplitude (volts) 2.0 V [facility] ic Dirk RA Pacing Polarity BI [facility] Dirk RA Pacing Pulse Width (ms) 0.5 ms [facility] Sensing Amplitude (mvolts) 0.4 mV [facility] Dirk RA Sensing Polarity BI [facility] Dirk RV Pacing Amplitude (volts) 1.5 V [facility] ic Dirk RV Pacing Polarity BI [facility] Dirk RV Pacing Pulse Width (ms) 0.5 ms [facility]irk RV Sensing Amplitude (mvolts) 2.0 mV [facility] Dirk RV Sensing Polarity BI [facility] Lead1 Mfg STJ [facility] ic Lead2 Mfg STJ [facility] ic Location RA [facility] ic Location RV [facility] Lower Rate (bpm) 60 {beats}/min [facility] Max Sensor Rate (bmp) 120 {beats}/min [facility] Model 2240 Assurity [facility] lin Pacing Mode DDD [facility] favian PM-Device Mfg STJ [facility] PM-Percent Pacing (A) 5.1 % [facility] PM-Percent Pacing (V) 99.0 % [facility] RA Bipolar Impedance ohms 460 ohm [facility] RV Bipolar Impedance ohms 860 ohm [facility] Serial Number [id number] [facility] Serial Number [id number] [facility] Serial Number [id number] [facility] Thresh RA Capture Amplitude (volts) 1.0 V [facility] ic Thresh RA Capture Duration (ms) 0.5 ms [facility] Thresh RA Sensing Amplitude (mvolts) 0.5 mV [facility] Thresh RV Capture Amplitude (volts) 1.25 V [facility] Thresh RV Capture Duration (ms) 0.5 ms [facility] Thresh RV Sensing Amplitude (mvolts) 12.0 mV [facility] favian Tracking Rate (bpm) 120 {beats}/min [facility] APTTon 07-12-2022 aPTT Coag (Bld) [Time] 29.9 s [facility] Comment on above: Effective 03/15/2020: Heparin Therapeutic Range: 64.0 98.0 seconds. Brain Natriuretic Peptideon 07-12-2022 Natriuretic peptide B (Bld) [Mass/Vol] 265 pg/mL [facility] Comment on above: NT-pro BNP [...] fibrillation, pulmonary emboli, pulmonary hypertension, pericarditis Reference: Januzzi, J., et al. NT-proBNP testing for diagnosis and short-term prognosis in acute destabilized HF: an international pooled analysis of 1256 patients. Heart Journal. 2006;27:330-337 CBC With Platelet and Differ entialon 07-12-2022 Basophils (Bld) [#/Vol] 0.1 10*3/uL Normal 0.0-0.2 [facility] Comment on above: Performed By: #### C BCWD #### [facility] [address] [place] [address] Basophils/100 WBC (Bld) 1.3 % Normal [facility] Comment on above: Performed By: #### C BCWD #### [facility] [address] [place] [address] Eosinophils (Bld) [#/Vol] 0.1 10*3/uL Normal 0.0-0.7 [facility] Comment on above: Performed By: #### C BCWD #### [facility] [address] [place] [address] Eosinophils/100 WBC (Bld) 1.7 % Normal [facility] Comment on above: Performed By: #### C BCWD #### [facility] [address] [place] [address] Erythrocyte distribution width (RBC) [Ratio] 14.0 % Normal 11.5-14.5 [facility] Comment on above: Performed By: #### C BCWD #### [facility] [address] [place] [address] Hematocrit (Bld) [Volume fraction] 43.9 % Normal 37.0-47.0 [facility] Comment on above: Performed By: #### C BCWD #### [facility] [address] [place] [address] Hemoglobin (Bld) [Mass/Vol] 14.7 g/dL Normal 12.0-16.0 [facility] Comment on above: Performed By: #### C BCWD #### [facility] [address] [place] [address] Lymphocytes (Bld) [#/Vol] 2.6 10*3/uL Normal 1.0-4.8 [facility] Comment on above: Performed By: #### C BCWD #### [facility] [address] [place] [address] Lymphocytes/100 WBC (Bld) 35.3 % Normal [facility] Comment on above: Performed By: #### C BCWD #### [facility] [address] [place] [address] MCH (RBC) [Entitic mass] 29.8 pg Normal 27.0-31.3 [facility] Comment on above: Performed By: #### C BCWD #### [facility] [address] [place] [address] MCHC 33.4 % Normal 33.0-37.0 [facility] Comment on above: Performed By: #### C BCWD #### [facility] [address] [place] [address] MCV (RBC) [Entitic vol] 89.3 fL Normal 79.4-94.8 [facility] Comment on above: Performed By: #### C BCWD #### [facility] [address] [place] [address] Monocytes (Bld) [#/Vol] 0.6 10*3/uL Normal 0.2-0.8 [facility] Comment on above: Performed By: #### C BCWD #### [facility] [address] [place] [address] Monocytes/100 WBC (Bld) 8.4 % Normal [facility] Comment on above: Performed By: #### C BCWD #### [facility] [address] [place] [address] Neutrophils (Bld) [#/Vol] 4.0 10*3/uL Normal 1.4-6.5 [facility] Comment on above: Performed By: #### C BCWD #### [facility] [address] [place] [address] Neutrophils/100 WBC (Bld) 53.3 % Normal [facility] Comment on above: Performed By: #### C BCWD #### [facility] [address] [place] [address] Platelets (Bld) [#/Vol] 238 10*3/uL Normal 130-400 [facility] Comment on above: Performed By: #### C BCWD #### [facility] [address] [place] [address] RBC (Bld) [#/Vol] 4.91 10*6/uL Normal 4.20-5.40 [facility] Comment on above: Performed By: #### C BCWD #### [facility] [address] [place] [address] WBC (Bld) [#/Vol] 7.4 10*3/uL Normal 4.8-10.8 [facility] Comment on above: Performed By: #### C BCWD #### [facility] [address] [place] [address] CBC with Auto Differentialon 07-12-2022 Basophils (Bld) [#/Vol] 0.1 10*3/uL 0.0 - 0.2 K/uL [facility] Basophils/100 WBC (Bld) 1.3 % [facility] Eosinophils (Bld) [#/Vol] 0.1 10*3/uL 0.0 - 0.7 K/uL [facility] Eosinophils/100 WBC (Bld) 1.7 % [facility] Hematocrit (Bld) [Volume fraction] 43.9 % 37.0 - 47.0 % [facility] Hemoglobin (Bld) [Mass/Vol] 14.7 g/dL 12.0 - 16.0 g/dL [facility] Lymphocytes (Bld) [#/Vol] 2.6 10*3/uL 1.0 - 4.8 K/uL [facility] Lymphocytes/100 WBC (Bld) 35.3 % [facility] MCH (RBC) [Entitic mass] 29.8 pg 27.0 - 31.3 pg [facility] MCHC (RBC) [Mass/Vol] 33.4 % 33.0 - 37.0 % [facility] MCV (RBC) [Entitic vol] 89.3 fL 79.4 - 94.8 fL [facility] Monocytes (Bld) [#/Vol] 0.6 10*3/uL 0.2 - 0.8 K/uL [facility] Monocytes/100 WBC (Bld) 8.4 % [facility] Neutrophils Absolute 4.0 K/uL 1.4 - 6.5 K/uL [facility] Neutrophils/100 WBC (Bld) 53.3 % [facility] Platelet distribution width (Bld) [Ratio] 14.0 % 11.5 - 14.5 % [facility] Platelets (Bld) [#/Vol] 238 10*3/uL 130 - 400 K/uL [facility] RBC (Bld) [#/Vol] 4.91 10*6/uL [facility] WBC (Bld) [#/Vol] 7.4 10*3/uL 4.8 - 10.8 K/uL [facility] CKon 07-12-2022 CK [Catalytic activity/Vol] 29 U/L 0 - 170 U/L [facility] Comprehensive Metabolic Pane annalise 07-12-2022 Anion gap [Moles/Vol] 11 mmol/L Normal 9-15 [facility] Comment on above: Performed By: #### C BCWD #### [facility] [address] [place] [address] Chloride [Moles/Vol] 102 mmol/L Normal 95-107 [facility] Comment on above: Performed By: #### C BCWD #### [facility] [address] [place] [address] Potassium [Moles/Vol] 4.3 mmol/L Normal 3.4-4.9 [facility] Comment on above: Performed By: #### C BCWD #### [facility] [address] [place] [address] Sodium [Moles/Vol] 139 mmol/L Normal 135-144 [facility] Comment on above: Performed By: #### C BCWD #### [facility] [address] [place] [address] Albumin [Mass/Vol] 3.9 g/dL Normal 3.5-4.6 [facility] Comment on above: Performed By: #### C BCWD #### [facility] [address] [place] [address] ALP [Catalytic activity/Vol] 81 U/L Normal 40-130 [facility] Comment on above: Performed By: #### C BCWD #### [facility] [address] [place] [address] ALT [Catalytic activity/Vol] 10 U/L Normal 0-33 [facility] Comment on above: Performed By: #### C BCWD #### [facility] [address] [place] [address] AST [Catalytic activity/Vol] 14 U/L Normal 0-35 [facility] Comment on above: Performed By: #### C BCWD #### [facility] [address] [place] [address] Bilirubin [Mass/Vol] 0.3 mg/dL Normal 0.2-0.7 [facility] Comment on above: Performed By: #### C BCWD #### [facility] [address] [place] [address] Calcium [Mass/Vol] 9.6 mg/dL Normal 8.5-9.9 [facility] Comment on above: Performed By: #### C BCWD #### [facility] [address] [place] [address] CO2 [Moles/Vol] 26 mmol/L Normal 20-31 [facility] Comment on above: Performed By: #### C BCWD #### [facility] [address] [place] [address] Creatinine [Mass/Vol] 0.78 mg/dL Normal 0.50-0.90 [facility] Comment on above: Performed By: #### C BCWD #### [facility] [address] [place] [address] GFR >60.0 Normal >60 [facility] Comment on above: Result Comment: Osman atric [...] Performed By: #### C BCWD #### [facility] [address] [place] [address] Globulin (S) [Mass/Vol] 3.1 g/dL Normal 2.3-3.5 [facility] Comment on above: Performed By: #### C BCWD #### [facility] [address] [place] [address] Glucose [Mass/Vol] 135 mg/dL Critically high 70-99 M [facility] Comment on above: Performed By: #### C BCWD #### [facility] [address] [place] [address] Protein [Mass/Vol] 7.0 g/dL Normal 6.3-8.0 [facility] Comment on above: Performed By: #### C BCWD #### [facility] [address] [place] [address] Urea nitrogen [Mass/Vol] 14 mg/dL Normal 8-23 [facility] Comment on above: Performed By: #### C BCWD #### [facility] [address] [place] [address] Albumin [Mass/Vol] 3.9 g/dL 3.5 - 4.6 g/dL [facility] ALP (Bld) [Catalytic activity/Vol] 81 U/L 40 - 130 U/L [facility] ALT [Catalytic activity/Vol] 10 U/L 0 - 33 U/L [facility] Anion gap [Moles/Vol] 11 mmol/L [facility] AST [Catalytic activity/Vol] 14 U/L 0 - 35 U/L [facility] Bilirubin [Mass/Vol] 0.3 mg/dL 0.2 - 0.7 mg/dL [facility] Calcium [Mass/Vol] 9.6 mg/dL 8.5 - 9.9 mg/dL [facility] Chloride [Moles/Vol] 102 mmol/L [facility] CO2 [Moles/Vol] 26 mmol/L [facility] Creatinine [Mass/Vol] 0.78 mg/dL 0.50 - 0.90 mg/dL [facility] GFR/1.73 sq M.predicted MDRD (S/P/Bld) [Vol rate/Area] 60 - PINF [facility] Comment on above: Pediatric calculator [...] [Mass/Vol] 3.1 g/dL 2.3 - 3.5 g/dL [facility] Glucose [Mass/Vol] 135 mg/dL High 70 - 99 mg/dL [facility] Interpretation and review of laboratory results Abnormal [facility] Potassium [Moles/Vol] 4.3 mmol/L [facility] Protein [Mass/Vol] 7.0 g/dL 6.3 - 8.0 g/dL [facility] Sodium [Moles/Vol] 139 mmol/L [facility] Urea nitrogen (BldV) [Mass/Vol] 14 mg/dL 8 - 23 mg/dL [facility] Creatine Kinaseon 07-12-2022 CK [Catalytic activity/Vol] 29 U/L Normal 0-170 [facility] Comment on above: Performed By: #### C PK #### [facility] [address] [place] [address] Culture, Bloodon 07-12-2022 Microscopic examination of blood, culture ORDER#: [id number] ORDERED BY: KM JASON SOURCE: Blood COLLECTED: 07/12/22 16:42 ANTIBIOTICS AT KASHIF.: RECEIVED : 07/12/22 17:12 Culture, Blood FINAL 07/17/22 20:15 No growth after 5 [address] of [address]. [address] [facility] Comment on above: Performed By: #### C XBL #### [facility] [address] [place] [address] Culture, Blood 2on 3 Culture, Blood 2 ORDER#: [id number] ORDERED BY: KM JASON SOURCE: Blood COLLECTED: 07/12/22 16:42 ANTIBIOTICS AT KASHIF.: RECEIVED : 07/12/22 17:12 Culture, Blood 2 FINAL 07/17/22 20:15 No growth after 5 days of incubation. Normal [facility] Comment on above: Performed By: #### C XBL2 #### [facility] [address] [place] [address] High Sensitivity CRPon 07-12 High Sensitivity CRP 8.9 mg/L Critically high 0.0-5.0 [facility] Comment on above: Performed By: #### H SCRP #### [facility] [address] [place] [address] High sensitivity CRPon 07-12 CRP High Sensitivity 8.9 mg/L High 0.0 - 5.0 mg/L [facility] Interpretation and review of laboratory results Abnormal [facility] Lactic Acidon 07-12-2022 Lactate [Moles/Vol] 1.0 mmol/L Normal 0.5-2.2 [facility] Comment on above: Performed By: #### L ACID #### [facility] [address] [place] [address] Lactate [Moles/Vol] 1 mmol/L 0.5 - 2. 2 mmol/L [facility] Magnesiumon 07-12-2022 Magnesium [Mass/Vol] 1.9 mg/dL Normal 1.7-2.4 [facility] Comment on above: Performed By: #### C BCWD #### [facility] [address] [place] [address] Magnesium [Mass/Vol] 1.9 mg/dL 1.7 - 2.4 mg/dL [facility] Microscopic Urinalysison Bacteria, UA Negative Negative /HPF [facility] Epithelial Cells, UA 0-2 [facility] Hyaline Casts, UA 0-1 [facility] RBC, UA 0-2 [facility] WBC, UA 0-2 [facility] No Panel Informationon 07-12 [facility] Partial Thromboplastin Timeo n 07-12-2022 aPTT Coag (Bld) [Time] 29.9 s Normal 24.4-36.8 [facility] Comment on above: Result Comment: Effe ctive 03/15/2020: Heparin Therapeutic Range: 64.0 ? 98.0 seconds. Performed By: #### C BCWD #### [facility] [address] [place] [address] Procalcitoninon 07-12-2022 Procalcitonin 0.06 ng/mL Normal 0.00-0.15 [facility] Comment on above: Result Comment: Susp ected [...] to determine the patient's Mortality Risk Prognosis (www.rjdhuy-skb-pszxeovlut.[employer]) In healthy neonates, plasma Procalcitonin (PCT) concentrations increase gradually after , reaching peak values at about 24 hours of age then decrease to normal values below 0.5 ng/mL by 48-72 hours of age. Performed By: #### C BCWD #### [facility] [address] [place] [address] Procalcitonin 0.06 ng/mL 0.00 - 0.15 ng/mL [facility] Comment on above: Suspected Sepsis: [...] to determine the patient's Mortality Risk Prognosis (www.tljlwl-von-pigfvgxqhr.[employer]) In healthy neonates, plasma Procalcitonin (PCT) concentrations increase gradually after , reaching peak values at about 24 hours of age then decrease to normal values below 0.5 ng/mL by 48-72 hours of age. Prothrombin Timeon 3 INR Coag (PPP) [Relative time] 1.0 {INR} Normal [facility] Comment on above: Performed By: #### P T #### [facility] [address] [place] [address] PT Coag (PPP) [Time] 13.6 s Normal 12.3-14.9 [facility] Comment on above: Performed By: #### P T #### [facility] [address] [place] [address] Protime-INRon 07-12-2022 INR Coag (Bld) [Relative time] 1.0 {INR} [facility] PT Coag (PPP) [Time] 13.6 s [facility] TSHon 07-12-2022 TSH Qn 1.610 m[IU]/L [facility] TSH w/out Reflexon TSH w/out Reflex 1.610 uIU/mL Normal 0.440-3.86 [facility] Comment on above: Performed By: #### T SH #### [facility] [address] [place] [address] Troponinon 07-12-2022 Troponin I.cardiac [Mass/Vol] ng/mL Normal 0.000-0.01 [facility] Comment on above: Result Comment: Meth odology by Troponin T. Performed By: #### C BCWD #### [facility] [address] [place] [address] Troponin I.cardiac [Mass/Vol] ng/mL 0.000 - 0.010 ng/mL [facility] Comment on above: Methodology by Telma Figueroa Urinalysis with Reflex to Cu ltureon 07-12-2022 Bilirubin Urine Negative Negative [facility] Blood, Urine Negative Negative [facility] Clarity, UA Clear Clear [facility] Color, UA Yellow Straw/Yellow [facility] Glucose, Ur Negative Negative mg/dL [facility] Interpretation and review of laboratory results Abnormal [facility] Ketones Ql (U) Negative Negative mg/dL [facility] Leukocyte esterase Test strip Ql (U) TRACE Abnormal Negative [facility] Nitrite, Urine Negative Negative [facility] pH, UA 5.0 5.0 - 9.0 [facility] Protein, UA Negative Negative mg/dL [facility] Specific Jeremiah, UA 1.011 1.005 - 1.030 [facility] Urine Reflex to Culture Not Indicated [facility] Urobilinogen, Urine 0.2 NINF CHARANJIT Whitman [facility] Urinalysis, reflex to cultur elizabeth 07-12-2022 Urine Reflexed to Culture Not Indicated Normal [facility] Comment on above: Performed By: #### C BCWD #### [facility] [address] [place] [address] Bilirubin Ql (U) Negative Normal Negative [facility] Comment on above: Performed By: #### C BCWD #### [facility] [address] [place] [address] Clarity (U) Clear Normal Clear [facility] Comment on above: Performed By: #### C BCWD #### [facility] [address] [place] [address] Color (U) Yellow Normal Straw/[place]kes [facility] Comment on above: Performed By: #### C BCWD #### [facility] [address] [place] [address] Glucose Ql (U) Negative Normal Negative [facility] Comment on above: Performed By: #### C BCWD #### [facility] [address] [place] [address] Hemoglobin Ql (U) Negative Normal Negative [facility] Comment on above: Performed By: #### C BCWD #### [facility] [address] [place] [address] Ketones Ql (U) Negative Normal Negative [facility] Comment on above: Performed By: #### C BCWD #### [facility] [address] [place] [address] Leukocyte esterase Test strip Ql (U) TRACE Abnormal Negative [facility] Comment on above: Performed By: #### C BCWD #### [facility] [address] [place] [address] Nitrite Ql (U) Negative Normal Negative [facility] Comment on above: Performed By: #### C BCWD #### [facility] [address] [place] [address] pH (U) 5.0 [pH] Normal 5.0-9.0 [facility] Comment on above: Performed By: #### C BCWD #### [facility] [address] [place] [address] Protein Ql (U) Negative Normal Negative [facility] Comment on above: Performed By: #### C BCWD #### [facility] [address] [place] [address] Specific gravity (U) [Rel density] 1.011 Normal 1.005-1.03 [facility] Comment on above: Performed By: #### C BCWD #### [facility] [address] [place] [address] Urobilinogen Qn (U) 0.2 {Nerissa'U}/dL Normal < 2.0 [facility] Comment on above: Performed By: #### C BCWD #### [facility] [address] [place] [address] Urine Microscopicon 07-13-19 23 Bacteria LM.HPF (Urine sed) [#/Area] Negative Normal Negative [facility] Comment on above: Performed By: #### U DIEGO #### [facility] [address] [place] [address] Urine Epithelial Cells Auto 0-2 Normal 0-5 [facility] Comment on above: Performed By: #### U DIEOG #### [facility] [address] [place] [address] Urine Hyaline Casts Auto 0-1 Normal 0-5 [facility] Comment on above: Performed By: #### U DIGEO #### [facility] [address] [place] [address] Urine RBC Auto 0-2 Normal 0-5 [facility] Comment on above: Performed By: #### U DIEGO #### [facility] [address] [place] [address] Urine WBC Auto 0-2 Normal 0-5 [facility] Comment on above: Performed By: #### U DIEGO #### [facility] [address] [place] [address] XR CHEST (2 VW)on 07-12-2022 XR CHEST [...] Quinteros MD 07/12/[address] [facility] No acute process. Mild elevation of right hemidiaphragm. [facility] RADIOLOGY EXAMINATION: TWO XRAY VIEWS OF THE [...] The osseous structures are without acute process. [facility] RADIOLOGY Salo Quinteros MD - 07/12/2022 EXAMINATION: [...] acute process. Mild elevation of right hemidiaphragm. [facility] [employer] Phone: Radiology Study observation (narrative) [facility] [employer] Phone: XR CHEST (2 VW)Ordered By: David Quinteros on 07-12-2022 [facility] [employer] Phone: proBNPon 07-12-2022 Natriuretic peptide B (Bld) [Mass/Vol] 265 pg/mL Normal [facility] Comment on above: Result Comment: NT-p ro [...] Performed By: #### B NPPR #### [facility] [address] [facility] [address] GLYCOHEMOGLOBIN A1Con 2022 ADA RECOMMENDATION SEE BELOW Normal [facility] Comment on above: Result Comment: ADA RECOMMENDED LIMIT 4.0 - 6.0 ADA THERAPEUTIC TARGET < 7.0 ACTION SUGGESTED > 7.0 Performed By: #### A 1C ####[facility] [place] [id number] [place], [place] [address]Ye. Eber Robin Glucose [Mass/Vol] 148 mg/dL Normal [facility] Comment on above: Performed By: #### A 1C ####[facility] [place] [id number] [place], [place] [address]VoYasmin Kelly HbA1c (Bld) [Mass fraction] 6.8 % Critically high 4.5-6.2 [facility] [place] Comment on above: Performed By: #### A 1C ####[facility] [place] [id number] [place] [address]DrYasmin Kelly No Panel Informationon 07-03 BLANK _ [facility] Implant Date 02/27/2015 [facility] inic Model 2088TC Tendril [facility] PACEMAKER REMOTE CHECKon AV Delay Adaptive Paced Minimum (ms) 150 ms [facility] AV Delay Adaptive Sensed Minimum (ms) 130 ms [facility] in AV Delay Paced (ms) 100 ms [facility] AV Delay Sensed (ms) 100 ms [facility] Battery Voltage (volts) 2.92 V [facility] Dirk RA Pacing Amplitude (volts) 2 V [facility] Dirk RA Pacing Polarity BI [facility] Dirk RA Pacing Pulse Width (ms) 0.5 ms [facility] Dirk RA Sensing Amplitude (mvolts) 0.4 mV [facility] favian Dirk RA Sensing Polarity BI [facility] Dirk RV Pacing Amplitude (volts) 1.5 V [facility] Dirk RV Pacing Polarity BI [facility] Dirk RV Pacing Pulse Width (ms) 0.5 ms [facility] Dirk RV Sensing Amplitude (mvolts) 2 mV [facility] favian Dirk RV Sensing Polarity BI [facility] Lead1 Mfg STJ [facility] ic Lead2 Mfg STJ [facility] ic Location RA [facility] Location RV [facility] Lower Rate (bpm) 60 {beats}/min [facility] Max Sensor Rate (bmp) 120 {beats}/min [facility] Model 2240 Assurity [facility]inic Pacing Mode DDD [facility] PM-Device Mfg STJ [facility]inic PM-Percent Pacing (A) 4.4 % [facility] PM-Percent Pacing (V) 99 % [facility] RA Bipolar Impedance ohms 450 ohm [facility] RV Bipolar Impedance ohms 840 ohm [facility] Serial Number [id number] [facility] Serial Number [id number] [facility] Serial Number [id number] [facility] Thresh RA Capture Amplitude (volts) 1 V [facility] ic Thresh RA Capture Duration (ms) 0.5 ms [facility] Thresh RA Sensing Amplitude (mvolts) 0.5 mV [facility] Thresh RV Capture Amplitude (volts) 1.25 V [facility] ic Thresh RV Capture Duration (ms) 0.5 ms [facility] Thresh RV Sensing Amplitude (mvolts) 12 mV [facility] favian Tracking Rate (bpm) 120 {beats}/min [facility] BNPon 06-29-2022 Natriuretic peptide B (Bld) [Mass/Vol] 214.0 pg/mL Normal <=1,800.0 [facility] [place] Comment on above: Performed By: #### C MP, BNP, CMADM ####[facility] [place] [id number] [place] [address]Dr. Eber Kelly CARDIAC FRIEDA ADMITon 023 CK [Catalytic activity/Vol] 31 U/L Normal 26-192 [facility] Comment on above: Performed By: #### C MP, BNP, CMADM #### [facility] [place] [facility] [address] [place] [address] [address] Eber Kelly CK.MB [Mass/Vol] ng/mL Normal <=3.60 [facility] Comment on above: Performed By: #### C MP, BNP, CMADM #### [facility] [place] [facility] [address] [place] [address] [address] Eber Kelly HSTROP 5.2 pg/mL Normal 4.0-51.3 [facility] [place] Comment on above: Result Comment: CUT- OFF POINTS HAVE BEEN ESTABLISHED BASED ON THE FOURTH UNIVERSAL DEFINITIONS OF MYOCARDIAL INFARCTION. THE UPPER REFERENCE LIMIT (URL) OF TROPONIN, DEFINED THE 99TH PERCENTILE OF cTnI DISTRIBUTION IN A REFERENCE POPULATION, HAS BEEN CONFIRMED THE DECISION THRESHOLD FOR [place] DIAGNOSIS. Performed By: #### C MP, BNP, CMADM #### [facility] [place] [facility] [address] [address] [address] Eber Kelly ADELA 44 ng/mL Normal 9-82 [facility] [place] Comment on above: Performed By: #### C MP, BNP, CMADM #### [facility] [place] [facility] [address] [address] [address] Eber Kelly CBC AUTO DIFFon 06-29-2022 BASO # 0.1 103/ul Normal 0.0-0.1 [facility] Comment on above: Performed By: #### C BC #### [facility] [place] [facility] [address] [place] [address] Dr. Eber Kelly Basophils/100 WBC (Bld) 1.4 % Normal 0.2-2.0 [facility] [place] Comment on above: Performed By: #### C BC #### [facility] [place] [facility] [address] [place] [address] Dr. Eber Kelly EO # 0.2 103/ul Normal 0.0-0.7 [facility] [place] Comment on above: Performed By: #### C BC #### [facility] [place] [facility] [address] [place] [address] Dr. Eber Kelly Eosinophils/100 WBC (Bld) 2.0 % Normal 0.9-7.0 [facility] [place] Comment on above: Performed By: #### C BC #### [facility] [place] [facility] [address] [place] [address] Dr. Eber Kelly Erythrocyte distribution width (RBC) [Ratio] 13.3 % Normal 11.0-15.0 [facility] [place] Comment on above: Performed By: #### C BC #### [facility] [place] [facility] [address] [place] [address] Dr. Eber Kelly Hematocrit (Bld) [Volume fraction] 47.3 % Normal 36.0-48.0 [facility] [place] Comment on above: Performed By: #### C BC #### [facility] [place] [facility] [address] [place] [address] Dr. Eber Kelly Hemoglobin (Bld) [Mass/Vol] 15.8 g/dL Normal 12.0-16.0 [facility] [place] Comment on above: Performed By: #### C BC #### [facility] [place] [facility] [address] [place] [address] Dr. Eber Kelly IG # 0.02 10e3/ul Normal 0.00-0.03 [facility] [place] Comment on above: Performed By: #### C BC #### [facility] [place] [facility] [address] [place] [address] Dr. Eber Kelly IG % 0.2 % Normal 0.0-0.5 [facility] [place] Comment on above: Performed By: #### C BC #### [facility] [place] [facility] [address] [place] [address] Dr. Eber Kelly LYMPH # 2.4 103/ul Normal 1.2-3.8 [facility] [place] Comment on above: Performed By: #### C BC #### [facility] [place] [facility] [address] [place] [address] Dr. Eber Kelly Lymphocytes/100 WBC (Bld) 28.5 % Normal 20.5-60.0 [facility] [place] Comment on above: Performed By: #### C BC #### [facility] [place] [facility] [address] [place] [address] Dr. Eber Kelly MANUAL DIFF REQ NO Normal [facility] Comment on above: Performed By: #### C BC #### [facility] [place] [facility] [address] [place] [address] Dr. Eber Kelly MCH (RBC) [Entitic mass] 29.2 pg Normal 26.7-34.0 [facility] [place] Comment on above: Performed By: #### C BC #### [facility] [place] [facility] [address] [place] [address] Dr. Eber Kelly MCHC (RBC) [Mass/Vol] 33.4 g/dL Normal 29.9-35.2 [facility] [place] Comment on above: Performed By: #### C BC #### [facility] [place] [facility] [address] [place] [address] Dr. Eber Kelly MCV (RBC) [Entitic vol] 87.4 fL Normal 81.0-99.0 [facility] [place] Comment on above: Performed By: #### C BC #### [facility] [place] [facility] [address] [place] [address] Dr. Eber Kelly MONO # 0.7 103/ul Normal 0.3-0.8 [facility] [place] Comment on above: Performed By: #### C BC #### [facility] [place] [facility] [address] [place] [address] Dr. Eber Kelly Monocytes/100 WBC (Bld) 7.9 % Normal 1.7-12.0 [facility] Comment on above: Performed By: #### C BC #### [facility] [place] [facility] [address] [place] [address] Dr. Eber Kelly NEUT # 5.0 103/ul Normal 1.4-6.5 [facility] Comment on above: Performed By: #### C BC #### [facility] [place] [facility] [address] [place] [address] Dr. Eber Kelly Neutrophils/100 WBC (Bld) 60.0 % Normal 43.0-75.0 [facility] Comment on above: Performed By: #### C BC #### [facility] [place] [facility] [address] [place] [address] Dr. Eber Kelly Platelet mean volume (Bld) [Entitic vol] 11.0 fL Normal 9.5-13.5 [facility] Comment on above: Performed By: #### C BC #### [facility] [place] [facility] [address] [place] [address] Dr. Eber Kelly PLT 310 103/ul Normal 150-450 [facility] [place] Comment on above: Performed By: #### C BC #### [facility] [place] [facility] [address] [place] [address] Dr. Eber Kelly RBC 5.41 106/ul Critically high 4.20-5.40 [facility] Comment on above: Performed By: #### C BC #### [facility] [place] [facility] [address] [place] [address] Dr. Eber Kelly WBC 8.3 103/ul Normal 4.0-11.0 [facility] Comment on above: Performed By: #### C BC #### [facility] [place] [facility] [address] [place] [address] HEAD WO CONon [...] by: JOEY MARLEY Date: 2022-06-29 10:[address] [facility] CTA NECK WO W CONon 06-29-19 23 [...] ADIN KILLIAN Date: 2022-06-29 11:[address] [facility] ER URINE PROFILEon 02-18-202 3 Bilirubin Ql (U) Negative Normal NEGATIVE [facility] Comment on above: Performed By: #### E RUR #### [facility] [place] [facility] [address] [place] [address] Dr. Eber Kelly Clarity (U) CLEAR Normal CLEAR [facility] Comment on above: Performed By: #### E RUR #### [facility] [place] [facility] [address] [place] [address] Dr. Eber Kelly Color (U) LT. YELLOW Normal YELLOW [facility] Comment on above: Performed By: #### E RUR #### [facility] [place] [facility] [address] [place] [address] Dr. Eber HILL A micrscopic examination will be performed if indicated. Normal [facility] [place] Comment on above: Performed By: #### E RUR #### [facility] [place] [facility] [address] [place] [address] Dr. Eber Kelly Glucose Ql (U) Negative Normal NEGATIVE [facility] [place] Comment on above: Performed By: #### E RUR #### [facility] [place] [facility] [address] [place] [address] Dr. Eber Kelly Hemoglobin Ql (U) Negative Normal NEGATIVE [facility] [place] [facility] Comment on above: Performed By: #### E RUR #### [facility] [place] [facility] [address] [place] [address] Dr. Eber Kelly Ketones Ql (U) Negative Normal NEGATIVE [facility] [place] Comment on above: Performed By: #### E RUR #### [facility] [place] [facility] [address] [place] [address] Dr. Eber Kelly LEUKOCYTES Negative Normal NEGATIVE [facility] Comment on above: Performed By: #### E RUR #### [facility] [place] [facility] [address] [place] [address] Dr. Eber Kelly Nitrite Ql (U) Negative Normal NEGATIVE [facility] [place] Comment on above: Performed By: #### E RUR #### [facility] [place] [facility] [address] [place] [address] Dr. Eber Kelly pH (U) 6.0 [pH] Normal 5-9 [facility] [place] Comment on above: Performed By: #### E RUR #### [facility] [place] [facility] [address] [address] [address] Eber Kelly SPEC GRAVITY <=1.005 Abnormal 1.005-<=1.025 [facility] Comment on above: Performed By: #### E RUR #### [facility] [place] [facility] [address] [address] [address] Eber Kelly UA PROTEIN Negative Normal NEGATIVE/ TRACE [facility] Comment on above: Performed By: #### E RUR #### [facility] [place] [facility] [address] [address] [address] Eber Kelly UR MICRO IND NOT INDICATED Normal [facility] Comment on above: Performed By: #### E RUR #### [facility] [place] [facility] [address] [address] [address] Eber Kelly Urobilinogen Qn (U) 0.2 {Nerissa'U}/dL Normal 0.2 - 1. 0 [facility] Comment on above: Performed By: #### E RUR #### [facility] [place] [facility] [address] [address] [address] Eber Kelly POINT OF CARE GLUCOSEon 06-12 Glucose [Mass/Vol] 156 mg/dL Critically high 74-106 [facility] Comment on above: Performed By: #### P OCGLUC ####[facility] [place] [id number] [place] [address]Dr. Eber Kelly PROF 14(COMP METB)on 023 Albumin [Mass/Vol] 3.9 g/dL Normal 3.4-5.0 [facility] Comment on above: Performed By: #### C MP, BNP, CMADM #### [facility] [place] [facility] [address] [address] [address] Eber Kelly Albumin/Globulin [Mass ratio] 1.0 {ratio} Normal [facility] Comment on above: Performed By: #### C MP, BNP, CMADM #### [facility] [place] [facility] [address] [address] [address] Eber Kelly ALP [Catalytic activity/Vol] 79 U/L Normal 46-116 [facility] Comment on above: Performed By: #### C MP, BNP, CMADM #### [facility] [place] [facility] [address] [address] [address] Eber Kelly ALT [Catalytic activity/Vol] 15 U/L Normal 14-59 [facility] Comment on above: Performed By: #### C MP, BNP, CMADM #### [facility] [place] [facility] [address] [address] [address] Eber Kelly Anion gap [Moles/Vol] 13.3 mmol/L Normal [facility] Comment on above: Performed By: #### C MP, BNP, CMADM #### [facility] [place] [facility] [address] [address] [address] Eber Kelly AST [Catalytic activity/Vol] 13 U/L Critically low 15-37 [facility] Comment on above: Performed By: #### C MP, BNP, CMADM #### [facility] [place] [facility] [address] [place] [address] Dr. Eber Kelly Bilirubin [Mass/Vol] 0.6 mg/dL Normal 0.2-1.0 [facility] Comment on above: Performed By: #### C MP, BNP, CMADM #### [facility] [place] [facility] [address] [place] [address] Dr. Eber Kelly Calcium [Mass/Vol] 9.4 mg/dL Normal 8.5-10.1 [facility] Comment on above: Performed By: #### C MP, BNP, CMADM #### [facility] [place] [facility] [address] [address] [address] Eber eKlly Chloride [Moles/Vol] 104 mmol/L Normal 98-107 [facility] [place] Comment on above: Performed By: #### C MP, BNP, CMADM #### [facility] [place] [facility] [address] [place] [address] Dr. Eber Kelly CO2 [Moles/Vol] 26.9 mmol/L Normal 21.0-32.0 [facility] Comment on above: Performed By: #### C MP, BNP, CMADM #### [facility] [place] [facility] [address] [place] [address] Dr. Eber Kelly Creatinine [Mass/Vol] 0.94 mg/dL Normal 0.55-1.02 [facility] Comment on above: Performed By: #### C MP, BNP, CMADM #### [facility] [place] [facility] [address] [address] [address] Ebre Kelly EGFR-AF SURINAMESE >60 Normal >=60 [facility] Comment on above: Performed By: #### C MP, BNP, CMADM #### [facility] [place] [facility] [address] [address] [address] Eber Kelly EGFR-NON AF SURINAMESE 57 mL/min/1.73m2 Critically low >=60 [facility] Comment on above: Performed By: #### C MP, BNP, CMADM #### [facility] [place] [facility] [address] [place] [address] Dr. Eber Kelly Globulin (S) [Mass/Vol] 4.0 g/dL Normal [facility] Comment on above: Performed By: #### C MP, BNP, CMADM #### [facility] [place] [facility] [address] [address] [address] Eber Kelly Glucose [Mass/Vol] 159 mg/dL Critically high 74-106 [facility] Comment on above: Performed By: #### C MP, BNP, CMADM #### [facility] [place] [facility] [address] [place] [address] Dr. Eber Kelly Potassium [Moles/Vol] 4.2 mmol/L Normal 3.5-5.1 [facility] Comment on above: Performed By: #### C MP, BNP, CMADM #### [facility] [place] [facility] [address] [address] [address] Eber Kelly Protein [Mass/Vol] 7.9 g/dL Normal 6.4-8.2 [facility] Comment on above: Performed By: #### C MP, BNP, CMADM #### [facility] [place] [facility] [address] [address] [address] Eber Kelly Sodium [Moles/Vol] 140 mmol/L Normal 136-145 [facility] Comment on above: Performed By: #### C MP, BNP, CMADM #### [facility] [place] [facility] [address] [place], [place] [address] Dr. Eber Kelly Urea nitrogen [Mass/Vol] 14.0 mg/dL Normal 7.0-18.0 [facility] Comment on above: Performed By: #### C MP, BNP, CMADM #### [facility] [place] [facility] [address] [address] [address] Eber Kelly Urea nitrogen/Creatinine [Mass ratio] 14.9 mg/mg Normal [facility] [place] Comment on above: Performed By: #### C MP, BNP, CMADM #### [facility] [place] [facility] [address] [address] [address] Eber Kelly PROTIMEon 06-29-2022 INR Coag (PPP) [Relative time] 1.05 {INR} Normal [facility] Comment on above: Performed By: #### P TT, PT ####[facility] [place] [id number] [place] [address]DrYasmin Kelly INR GUIDELINES SEE BELOW Normal [facility] Comment on above: Result Comment: JULIOCESAR RED INR: 2.0 - 3.0 CONDITIONS NOT LISTED BELOW 2.5 - 3.5 FOR PROSTHETIC HEART VALVE REPLACEMENT 2.5 - 3.5 RECURRENT THROMBOSIS Performed By: #### P TT, PT ####[facility] [address] [address]DrYasmin Kelly PT Coag (PPP) [Time] 11.1 s Normal 9.0-11.6 [facility] Comment on above: Performed By: #### P TT, PT ####[facility] [address] [id number]. Eber Kelly PTTon 06-29-2022 aPTT Coag (Bld) [Time] 31.8 s Normal 22.3-36.2 [facility] Comment on above: Performed By: #### P TT, PT ####[facility] [address] [address]DrYasmin Kelly XR CHEST 1 Von 06-29-2022 XR CHEST 1 V EXAM: XR CHEST 1 V INDICATION: COUGH. COMPARISON: Chest radiograph 06/15/2015. TECHNIQUE: Single frontal view of the chest FINDINGS: Left-sided dual-lead pacemaker in stable position. Normal cardiac mediastinal contours. Clear lungs. No pleural effusion or pneumothorax. No acute osseous abnormality. IMPRESSION: No acute cardiopulmonary process. Electronically authenticated by: ALLA MONTALVO Date: 2022-06-29 10:[address] [facility] No Panel Informationon 05-01 BLANK _ [facility] ic Implant Date 02/27/2015 [facility] inic Model 2088TC Tendril STS [facility] PACEMAKER CLINIC CHECKon AMS Fallback Rate (bpm) 70 {beats}/min [facility] AV Delay Adaptive Paced Minimum (ms) 150 ms [facility] favian AV Delay Adaptive Rate Maximum (bpm) 120 {beats}/min [facility] Delay Adaptive Rate Minimum (bpm) 90 {beats}/min [facility] favian AV Delay Adaptive Sensed Minimum (ms) 130 ms [facility] in AV Delay Adaptive Status Medium [facility] AV Delay Paced (ms) 100 ms [facility] AV Delay Sensed (ms) 100 ms [facility] Battery Voltage (volts) 2.93 V [facility] Dirk RA Pacing Amplitude (volts) 2 V [facility] Dirk RA Pacing Polarity BI [facility] Dirk RA Pacing Pulse Width (ms) 0.5 ms [facility] c Dirk RA Sensing Blanking Period (ms) 150 ms [facility] Dirk RA Sensing Polarity BI [facility] Dirk RA Sensing Refractory Period (ms) 190 ms [facility] Dirk RV Pacing Amplitude (volts) 1.25 V [facility] Dirk RV Pacing Polarity BI [facility] Dirk RV Pacing Pulse Width (ms) 0.5 ms [facility] c Dirk RV Sensing Amplitude (mvolts) 2 mV [facility] favian Dirk RV Sensing Blanking Period (ms) 44 ms [facility] Dirk RV Sensing Polarity BI [facility] Dirk RV Sensing Refractory Period (ms) 250 ms [facility] Hysteresis Rate (bpm) Off [facility] Lead1 Mfg STJ [facility] ic Lead2 Mfg STJ [facility] ic Location RA [facility] Lower Rate (bpm) 60 {beats}/min [facility] Max Sensor Rate (bmp) 120 {beats}/min [facility] Model 2240 Assurity [facility] linic Pacemaker Dependent? YES [facility] Pacing Mode DDD [facility] favian PM-Device Mfg STJ [facility] lin PM-Percent Pacing (A) 3.9 % [facility] PM-Percent Pacing (V) 99.98 % [facility] PM-PMT Intervention Atrial Pace [facility] PM-PVC Intervention Off [facility] PM-Rate Modulation Acceleration Reaction Fast [facility] PM-Rate Modulation Deceleration Medium [facility] PM-Rate Modulation Reagan Auto (+2) [facility] PM-Rate Modulation Threshold Auto (+0.0) [facility] Rhythm Sinus rhythm with complete heart block [facility] Serial Number [id number] [facility] linic Serial Number [id number] [facility] linic Serial Number [id number] [facility] lin Thresh RA Capture Amplitude (volts) 1 V [facility] ic Thresh RA Capture Duration (ms) 0.5 ms [facility] Thresh RA Sensing Amplitude (mvolts) 1.4 mV [facility] favian Thresh RV Capture Amplitude (volts) 1 V [facility] Thresh RV Capture Duration (ms) 0.5 ms [facility] Thresh RV Sensing Amplitude (mvolts) 12 mV [facility] favian Tracking Rate (bpm) 120 {beats}/min [facility] No Panel Informationon 04-01 BLANK _ [facility] ic Implant Date 02/27/2015 [facility] in Model 2088TC Tendril STS [facility] PACEMAKER REMOTE CHECKon AV Delay Adaptive Paced Minimum (ms) 150 ms [facility] favian AV Delay Adaptive Sensed Minimum (ms) 130 ms [facility] in AV Delay Paced (ms) 100 ms [facility] AV Delay Sensed (ms) 100 ms [facility] Battery Voltage (volts) 2.93 V [facility] Dirk RA Pacing Amplitude (volts) 2 V [facility] ic Dirk RA Pacing Polarity BI [facility] Dirk RA Pacing Pulse Width (ms) 0.5 ms [facility] c Dirk RA Sensing Amplitude (mvolts) 0.4 mV [facility] favian Dirk RA Sensing Polarity BI [facility] Dirk RV Pacing Amplitude (volts) 1.125 [facility] ic Dirk RV Pacing Polarity BI [facility] Dirk RV Pacing Pulse Width (ms) 0.5 ms [facility] c Dirk RV Sensing Amplitude (mvolts) 2 mV [facility] Dirk RV Sensing Polarity BI [facility] Lead1 Mfg STJ [facility] ic Lead2 Mfg STJ [facility] ic Location RA [facility] ic Location RV [facility] ic Lower Rate (bpm) 60 {beats}/min [facility] Max Sensor Rate (bmp) 120 {beats}/min [facility] Model 2240 Assurity [facility] lin Pacing Mode DDD [facility] favian PM-Device Mfg STJ [facility] linic PM-Percent Pacing (A) 4.2 % [facility] PM-Percent Pacing (V) 99 % [facility] RA Bipolar Impedance ohms 450 ohm [facility] RV Bipolar Impedance ohms 850 ohm [facility] Serial Number [id number] [facility] linic Serial Number [id number] [facility] linic Serial Number [id number] [facility] Thresh RA Capture Amplitude (volts) 1 V [facility] ic Thresh RA Capture Duration (ms) 0.5 ms [facility] Thresh RA Sensing Amplitude (mvolts) 0.5 mV [facility] favian Thresh RV Capture Amplitude (volts) 0.875 V [facility] ic Thresh RV Capture Duration (ms) 0.5 ms [facility] Thresh RV Sensing Amplitude (mvolts) 12 [facility] Tracking Rate (bpm) 120 {beats}/min [facility] MICROALBUMIN URINEon 022 Albumin, Urine 35.2 ug/mL Normal Not Estab. [facility] Comment on above: Performed By: #### M ALBLC #### [facility] [address] [address] [address] Eber Kelly CBC AUTO DIFFon 01-07-2022 BASO # 0.1 103/ul Normal 0.0-0.1 [facility] Comment on above: Performed By: #### C BC ####[facility] [address] [address]Dr. Eber Kelly Basophils/100 WBC (Bld) 1.1 % Normal 0.2-2.0 [facility] Comment on above: Performed By: #### C BC ####[facility] [address] [address]Dr. Eber Kelly EO # 0.2 103/ul Normal 0.0-0.7 [facility] Comment on above: Performed By: #### C BC ####[facility] [address] [place], [place] [address]Dr. Eber Kelly Eosinophils/100 WBC (Bld) 1.7 % Normal 0.9-7.0 [facility] Comment on above: Performed By: #### C BC ####[facility] [address] [place], [place] [address]Dr. Eber Kelly Erythrocyte distribution width (RBC) [Ratio] 13.4 % Normal 11.0-15.0 [facility] Comment on above: Performed By: #### C BC ####[facility] [address] [place], [place] [address]Dr. Francesrobin Kelly Hematocrit (Bld) [Volume fraction] 47.0 % Normal 36.0-48.0 [facility] Comment on above: Performed By: #### C BC ####[facility] [address] [place], [place] [address]Dr. Eber Kelly Hemoglobin (Bld) [Mass/Vol] 15.5 g/dL Normal 12.0-16.0 [facility] Comment on above: Performed By: #### C BC ####[facility] [address] [place], [place] [address]Dr. Francesrobin Kelly IG # 0.03 10e3/ul Normal 0.00-0.03 [facility] Comment on above: Performed By: #### C BC ####[facility] [address] [place], [place] [address]Dr. Francesrobin Kelly IG % 0.3 % Normal 0.0-0.5 [facility] Comment on above: Performed By: #### C BC ####[facility] [address] [place], [place] [address]Dr. Eber Kelly LYMPH # 3.2 103/ul Normal 1.2-3.8 [facility] Comment on above: Performed By: #### C BC ####[facility] [address] [place], [place] [address]Dr. Eber Klely Lymphocytes/100 WBC (Bld) 34.4 % Normal 20.5-60.0 [facility] Comment on above: Performed By: #### C BC ####[facility] [address] [place] [address]DrYasmin Kelly MANUAL DIFF REQ NO Normal [facility] Comment on above: Performed By: #### C BC ####[facility] [address] [address]Dr. Eber Kelly MCH (RBC) [Entitic mass] 29.1 pg Normal 26.7-34.0 [facility] Comment on above: Performed By: #### C BC ####[facility] [address] [place], [place] [address]Dr. Eber Kelly MCHC (RBC) [Mass/Vol] 33.0 g/dL Normal 29.9-35.2 [facility] Comment on above: Performed By: #### C BC ####[facility] Af[address] [place], [place] [address]Dr. Eber Kelly MCV (RBC) [Entitic vol] 88.3 fL Normal 81.0-99.0 [facility] Comment on above: Performed By: #### C BC ####[facility] [address] [place], [place] [address]DrYasmin Kelly MONO # 0.9 103/ul Critically high 0.3-0.8 [facility] Comment on above: Performed By: #### C BC ####[facility] [address] [place], [place] [address]Dr. Eber Kelly Monocytes/100 WBC (Bld) 9.5 % Normal 1.7-12.0 [facility] Comment on above: Performed By: #### C BC ####[facility] [address] [place], [place] [address]DrYasmin Kelly NEUT # 4.9 103/ul Normal 1.4-6.5 [facility] Comment on above: Performed By: #### C BC ####[facility] [address] [place], [place] [address]DrYasmin Kelly Neutrophils/100 WBC (Bld) 53.0 % Normal 43.0-75.0 [facility] Comment on above: Performed By: #### C BC ####[facility] [address] [address]Dr. Eber Kelly Platelet mean volume (Bld) [Entitic vol] 10.8 fL Normal 9.5-13.5 [facility] Comment on above: Performed By: #### C BC ####[facility] [address] [place] [address]Dr. Eber Kelly PLT 305 103/ul Normal 150-450 [facility] Comment on above: Performed By: #### C BC ####[facility] [address] [place], [place] [address]Dr. Eber Kelly RBC 5.32 106/ul Normal 4.20-5.40 [facility] Comment on above: Performed By: #### C BC ####[facility] Mes[address] [place], [place] [address]Dr. Eber Kelly WBC 9.3 103/ul Normal 4.0-11.0 [facility] Comment on above: Performed By: #### C BC ####[facility] [address] [place], [place] [address]Dr. Eber Kelly GLYCOHEMOGLOBIN A1Con 2021 ADA RECOMMENDATION SEE BELOW Normal [facility] Comment on above: Result Comment: ADA RECOMMENDED LIMIT 4.0 - 6.0 ADA THERAPEUTIC TARGET < 7.0 ACTION SUGGESTED > 7.0 Performed By: #### A 1C ####[facility] [address] [place], [place] [address]Dr. Eber Kelly Glucose [Mass/Vol] 154 mg/dL Normal [facility] Comment on above: Performed By: #### A 1C ####[facility] [address] [place], [place] [address]Dr. Eber Kelly HbA1c (Bld) [Mass fraction] 7.0 % Critically high 4.5-6.2 [facility] Comment on above: Performed By: #### A 1C ####[facility] [address] [address]Dr. Eber Kelly PROF CHEM 8 (BAS METB)on Anion gap [Moles/Vol] 12.9 mmol/L Normal [facility] Comment on above: Performed By: #### B MP, TSH #### [facility] [address] [address] [address] Eber Kelly Calcium [Mass/Vol] 9.4 mg/dL Normal 8.5-10.1 [facility] Comment on above: Performed By: #### B MP, TSH #### [facility] [address] [address] [address] Eber Kelly Chloride [Moles/Vol] 100 mmol/L Normal 98-107 [facility] Comment on above: Performed By: #### B MP, TSH #### [facility] [address] [place] [address] Dr. Eber Kelly CO2 [Moles/Vol] 30.0 mmol/L Normal 21.0-32.0 [facility] Comment on above: Performed By: #### B MP, TSH #### [facility] [address] [address] [address] Eber Kelly Creatinine [Mass/Vol] 1.04 mg/dL Critically high 0.55-1.02 [facility] Comment on above: Performed By: #### B MP, TSH #### [facility] [address] [address] [address] Eber Kelly EGFR-AF SURINAMESE >60 Normal >=60 [facility] Comment on above: Performed By: #### B MP, TSH #### [facility] [address] [address] [address] Eber Kelly EGFR-NON AF SURINAMESE 51 mL/min/1.73m2 Critically low >=60 [facility] Comment on above: Performed By: #### B MP, TSH #### [facility] [address] [address] [address] Eber Kelly Glucose [Mass/Vol] 160 mg/dL Critically high 74-106 [facility] Comment on above: Performed By: #### B MP, TSH #### [facility] [address] [address] [address] Eber Kelly Potassium [Moles/Vol] 3.9 mmol/L Normal 3.5-5.1 [facility] Comment on above: Performed By: #### B MP, TSH #### [facility] [address] [address] [address] Eber Kelly Sodium [Moles/Vol] 139 mmol/L Normal 136-145 [facility] Comment on above: Performed By: #### B MP, TSH #### [facility] [address] [address] [address] Eber Kelly Urea nitrogen [Mass/Vol] 21.0 mg/dL Critically high 7.0-18.0 [facility] Comment on above: Performed By: #### B MP, TSH #### [facility] [address] [address] [address] Eber Kelly Urea nitrogen/Creatinine [Mass ratio] 20.2 mg/mg Normal [facility] Comment on above: Performed By: #### B MP, TSH #### [facility] [address] [address] [address] Eber Kelly TSHon 01-07-2022 TSH 4.497 uIU/mL Critically high 0.358-3.740 [facility] Comment on above: Performed By: #### B MP, TSH #### [facility] [address] [address] [address] Eber Kelly No Panel Informationon 12-31 BLANK _ [facility] ic Implant Date 02/27/2015 [facility] Model 2088TC Tendril STS [facility] PACEMAKER REMOTE CHECKon AV Delay Adaptive Paced Minimum (ms) 150 ms [facility] favian AV Delay Adaptive Sensed Minimum (ms) 130 ms [facility] AV Delay Paced (ms) 100 ms [facility] AV Delay Sensed (ms) 100 ms [facility] Battery Voltage (volts) 2.95 V [facility] Dirk RA Pacing Amplitude (volts) 2 V [facility] ic Dirk RA Pacing Polarity BI [facility] Dirk RA Pacing Pulse Width (ms) 0.5 ms [facility] Dirk RA Sensing Amplitude (mvolts) 0.4 mV [facility] favian Dirk RA Sensing Polarity BI [facility] Dirk RV Pacing Amplitude (volts) 1.25 V [facility] ic Dirk RV Pacing Polarity BI [facility] Dirk RV Pacing Pulse Width (ms) 0.5 ms [facility] c Dirk RV Sensing Amplitude (mvolts) 2 mV [facility] favian Dirk RV Sensing Polarity BI [facility] Lead1 Mfg STJ [facility] ic Lead2 Mfg STJ [facility] ic Location RA [facility] Location RV [facility] Lower Rate (bpm) 60 {beats}/min [facility] Max Sensor Rate (bmp) 120 {beats}/min [facility] Model 2240 Assurity [facility] linic Pacing Mode DDD [facility] favian PM-Device Mfg STJ [facility] linic PM-Percent Pacing (A) 4.8 % [facility] PM-Percent Pacing (V) 99 % [facility] RA Bipolar Impedance ohms 460 ohm [facility] RV Bipolar Impedance ohms 860 ohm [facility] Serial Number [id number] [facility] Serial Number [id number] [facility] Serial Number [id number] [facility] Thresh RA Capture Amplitude (volts) 1 V [facility] ic Thresh RA Capture Duration (ms) 0.5 ms [facility] Thresh RA Sensing Amplitude (mvolts) 1 mV [facility] favian Thresh RV Capture Amplitude (volts) 1 V [facility] ic Thresh RV Capture Duration (ms) 0.5 ms [facility] Thresh RV Sensing Amplitude (mvolts) 12 [facility] Tracking Rate (bpm) 120 {beats}/min [facility] XR KUB 1 VIEWon 11-20-2021 XR KUB [...] MOOK NEFF Date: 2021-11-20 19:38 Normal [facility] XR Wrist - right AP and Late ralon 05-15-2020 IMPRESSION: Mild to moderate first carpometacarpal joint osteoarthritis. Regional Sales Representative: ANNABELLA Transcribe Date/Time: May 15 2020 10:53A Dictated by : JAYY FREY MD This examination was interpreted and the report reviewed and electronically signed by: SANCHEZ DOMINIQUE MD on May 15 2020 1:58PM [facility] DIVISION OF RADIOLOGY * * *Final Report* * * DATE OF EXAM: May 15 2020 10:46AM LZX 5294 - XR WRIST 2V PA/LAT RT / PROCEDURE REASON: Carpal tunnel syndrome of right wrist * * * * Physician Interpretation * * * * EXAMINATION: XR WRIST 2V PA/LAT RT HISTORY: rt wrist pain and numbness Carpal tunnel syndrome of right wrist . TECHNIQUE: XR WRIST 2V PA/LAT RT Laterality: RIGHT Number of different views (projections): 2 M: XB_1 COMPARISON: None RESULT: There is no acute fracture or dislocation. Negative ulnar variance is noted. Mild to moderate first carpometacarpal joint osteoarthritis is noted. Scapholunate interval is preserved. No focal soft tissue swelling. DIVISION OF RADIOLOGY Provider, [facility] - 05/15/2020 * * *Final Report* * * DATE OF EXAM: May 15 2020 10:46AM LZX 5294 - XR WRIST 2V PA/LAT RT / PROCEDURE REASON: Carpal tunnel syndrome of right wrist * * * * Physician Interpretation * * * * EXAMINATION: XR WRIST 2V PA/LAT RT HISTORY: rt wrist pain and numbness Carpal tunnel syndrome of right wrist . TECHNIQUE: XR WRIST 2V PA/LAT RT Laterality: RIGHT Number of different views (projections): 2 M: XB_1 COMPARISON: None RESULT: There is no acute fracture or dislocation. Negative ulnar variance is noted. Mild to moderate first carpometacarpal joint osteoarthritis is noted. Scapholunate interval is preserved. No focal soft tissue swelling. IMPRESSION IMPRESSION: Mild to moderate first carpometacarpal joint osteoarthritis. Regional Sales Representative: ANNABELLA Transcribe Date/Time: May 15 2020 10:53A Dictated by : JAYY FREY MD This examination was interpreted and the report reviewed and electronically signed by: SANCHEZ DOMINIQUE MD on May 15 2020 1:58PM EST [facility] Radiology Study observation (narrative) [facility] XR Wrist - right AP and Late ralOrdered By: [facility] Provider on 05-15-[address] [facility] [address] CHEST WO IVCONon 07-15-19 CT CHEST WO IVCON * * *Final Report* * *DATE OF EXAM: Jul 14 2017 5:00PM [facility] 0541 - CT CHEST WO IVCON / [...] MONROY MD on Jul 15 2017 1:08PM [id number] IACN [facility] PROGRESSon 07-14-2017 PROGRESS HNO ID: [id number]: Melissa Pham CTS (Ct)ervice: RadiologyAuthor Type: TechnicianType: Progress NotesFiled: 07/14/2017 4:57 PMNote Text: Radiology Service Progress NotePATIENT NAME: Rufino CollinsMRN: [id number] OF SERVICE: July 14, 2017TIME: 4:57 PMPATIENT IDENTITY VERIFICATION COMPLETED USING TWO (2) METHODS: Patientconfirmed name verbally and ID band matches..PATIENT GENDER DATA: Female. status: : NoBreastfeeding status: NO.PATIENT RELEVANT IMPLANT DATA REVIEWED: YesRADIOLOGY DEPARTMENT: CT; Exam(s) Completed: ChestPERIPHERAL IV DATA: Not applicableSIGNED BY: SE[facility]University [facility] 2017 4:57 PM [facility] Vital Signs Date Time Vital Sign Value Performing Clinician Facility 02-20-2024 13:54-0400 Diastolic blood pressure 60 mm[Hg] Rachid Odell MD Work Phone: [facility] 02-20-2024 13:54-0400 Heart rate 89 /min Rachid Odell MD Work Phone: [facility] 02-20-2024 13:54-0400 Systolic blood pressure 130 mm[Hg] Rachid Odell MD Work Phone: [facility] 01-09-2024 13:49-0400 Body height 171.45 cm [facility] 01-09-2024 13:49-0400 Body mass index (BMI) [Ratio] 36.3 kg/m2 [facility] 01-09-2024 13:49-0400 Body weight 106.65 kg [facility] 01-09-2024 13:49-0400 Diastolic blood pressure 89 mm[Hg] [facility] 01-09-2024 13:49-0400 Heart rate 92 /min [facility] 01-09-2024 13:49-0400 Respiratory rate 12 /min [facility] 01-09-2024 13:49-0400 Systolic blood pressure 139 mm[Hg] [facility] 09-03-2023 11:22-0400 Body height 171.45 cm [facility] 09-03-2023 11:22-0400 Body mass index (BMI) [Ratio] 36.6 kg/m2 [facility] 09-03-2023 11:22-0400 Body weight 107.5 kg [facility] 09-03-2023 11:22-0400 Diastolic blood pressure 84 mm[Hg] [facility] 09-03-2023 11:22-0400 Heart rate 90 /min [facility] 09-03-2023 11:22-0400 SaO2% (BldA) [Mass fraction] 97 % [facility] 09-03-2023 11:22-0400 Systolic blood pressure 122 mm[Hg] [facility] [facility] 08-22-2023 13:36-0400 Diastolic blood pressure 76 mm[Hg] Rachid Odell MD Work Phone: [facility] 08-22-2023 13:36-0400 Heart rate 78 /min Rachid Odell MD Work Phone: [facility] 08-22-2023 13:36-0400 Systolic blood pressure 143 mm[Hg] Rachid Odell MD Work Phone: [facility] 07-08-2023 13:41-0500 Body height 171.45 cm [facility] 07-08-2023 13:41-0500 Body mass index (BMI) [Ratio] 36.3 kg/m2 [facility] 07-08-2023 13:41-0500 Body weight 106.65 kg [facility] 07-08-2023 13:41-0500 Diastolic blood pressure 83 mm[Hg] [facility] 07-08-2023 13:41-0500 Heart rate 98 /min [facility] 07-08-2023 13:41-0500 Respiratory rate 12 /min [facility] 07-08-2023 13:41-0500 Systolic blood pressure 137 mm[Hg] [facility] 05-23-2023 13:30-0500 Body height 171.45 cm Manav Ball Other [facility] Other 05-23-2023 13:30-0500 Body mass index (BMI) [Ratio] 36.88 kg/m2 Manav Ball Other [facility] Other 05-23-2023 13:30-0500 Body weight 108.41 kg Manav Ball Other [facility] Other 05-23-2023 13:30-0500 Diastolic blood pressure 75 mm[Hg] Manav Ball Other [facility] Other 05-23-2023 13:30-0500 Respiratory rate 16 /min Manav Ball Other [facility] Other 05-23-2023 13:30-0500 Systolic blood pressure 141 mm[Hg] Manav Ball Other [facility] Other 05-03-2023 11:25-0500 Body height 171.45 cm Nina Wallace Other [facility] Other 05-03-2023 11:25-0500 Body mass index (BMI) [Ratio] 36.88 kg/m2 Nina Wallace Other [facility] Other 05-03-2023 11:25-0500 Body temperature 98 [degF] Nina Wallace Other [facility] Other 05-03-2023 11:25-0500 Body weight 108.41 kg Nina Wallace Other [facility] Other 05-03-2023 11:25-0500 Diastolic blood pressure 82 mm[Hg] Nina Wallace Other [facility] Other 05-03-2023 11:25-0500 Respiratory rate 18 /min Nina Wallace Other [facility] Other 05-03-2023 11:25-0500 SaO2% (BldA) [Mass fraction] 95 % Nina Wallace Other [facility] Other 05-03-2023 11:25-0500 Systolic blood pressure 118 mm[Hg] Nina Wallace Other [facility] Other 04-17-2023 09:21-0500 Blood Pressure Location Roseann Orzech [facility] 04-17-2023 09:21-0500 Body temperature 97.34 [degF] Roseann Orzech [facility] 04-17-2023 09:21-0500 Diastolic blood pressure 86 mm[Hg] Roseann Orzech [facility] 04-17-2023 09:21-0500 Heart rate 83 /min Roseann Orzech [facility] 04-17-2023 09:21-0500 Systolic blood pressure 134 mm[Hg] Roseann Luna [facility] 04-16-2023 14:52-0500 Body height 172.7 cm Tamra Grewal MD Work Phone: [facility] 04-16-2023 14:52-0500 Body weight 108.41 kg Tamra Grewal MD Work Phone: [facility] 04-16-2023 14:52-0500 Diastolic blood pressure 84 mm[Hg] Tamra Grewal MD Work Phone: [facility] 04-16-2023 14:52-0500 Heart rate 80 /min Tamra Grewal MD Work Phone: [facility] 04-16-2023 14:52-0500 Systolic blood pressure 142 mm[Hg] Tamra Grewal MD Work Phone: [facility] 01-06-2023 13:30-0400 Body height 171.45 cm Manav Ball Other [facility] Other 01-06-2023 13:30-0400 Body mass index (BMI) [Ratio] 36.88 kg/m2 Manav Ball Other [facility] Other 01-06-2023 13:30-0400 Body weight 108.41 kg Manav Ball Other [facility] Other 01-06-2023 13:30-0400 Diastolic blood pressure 77 mm[Hg] Manav Ball Other [facility] Other 01-06-2023 13:30-0400 Respiratory rate 12 /min Manav Ball Other [facility] Other 01-06-2023 13:30-0400 Systolic blood pressure 136 mm[Hg] Manav Ball Other [facility] Other 08-21-2022 16:15-0400 Body height 171.45 cm Manav Ball Other [facility] Other 08-21-2022 16:15-0400 Body mass index (BMI) [Ratio] 37.83 kg/m2 Manav Ball Other [facility] Other 08-21-2022 16:15-0400 Body weight 111.22 kg Manav Ball Other [facility] Other 08-21-2022 16:15-0400 Diastolic blood pressure 89 mm[Hg] Manav Ball Other [facility] Other 08-21-2022 16:15-0400 Respiratory rate 16 /min Manav Ball Other [facility] Other 08-21-2022 16:15-0400 Systolic blood pressure 170 mm[Hg] Manav Ball Other [facility] Other 08-20-2022 13:26-0400 Diastolic blood pressure 79 mm[Hg] Rachid Odell MD Work Phone: [facility] 08-20-2022 13:26-0400 Heart rate 82 /min Rachid Odell MD Work Phone: [facility] 08-20-2022 13:26-0400 Systolic blood pressure 155 mm[Hg] Rachid Odell MD Work Phone: [facility] 07-17-2022 15:45-0500 Body height 171.45 cm Manav Ball Other [facility] Other 07-17-2022 15:45-0500 Diastolic blood pressure 84 mm[Hg] Manav Ball Other [facility] Other 07-17-2022 15:45-0500 Respiratory rate 16 /min Manav Ball Other [facility] Other 07-17-2022 15:45-0500 Systolic blood pressure 122 mm[Hg] Manav Rajan Other [facility] Other 07-12-2022 18:00-0500 Heart rate 69 /min Km Jason DO Work Phone: [employer] 07-12-2022 18:00-0500 Respiratory rate 25 /min Km Jason DO Work Phone: [facility] 07-12-2022 18:00-0500 SaO2% (BldA) [Mass fraction] 97 % Km Jason DO Work Phone: [facility] 07-12-2022 16:00-0500 Diastolic blood pressure 74 mm[Hg] Km Jason DO Work Phone: [facility] 07-12-2022 16:00-0500 Systolic blood pressure 160 mm[Hg] Km Jason DO Work Phone: [facility] 07-12-2022 15:45-0500 Body height 172.7 cm Km Jason DO Work Phone: [facility] 07-12-2022 15:45-0500 Body mass index (BMI) [Ratio] 37.25 kg/m2 Km Jason DO Work Phone: [facility] 07-12-2022 15:45-0500 Body temperature 97.7 [degF] Km Jason DO Work Phone: [facility] 07-12-2022 15:45-0500 Body weight 111.13 kg Km Jason DO Work Phone: [facility] 05-01-2022 15:58-0500 Body height 172.7 cm Tamra Grewal MD Work Phone: [facility] 05-01-2022 15:58-0500 Body temperature 97.81 [degF] Tamra Grewal MD Work Phone: [facility] 05-01-2022 15:58-0500 Body weight 112.49 kg Tamra Grewal MD Work Phone: [facility] 05-01-2022 15:58-0500 Diastolic blood pressure 68 mm[Hg] Tamra Grewal MD Work Phone: [facility] 05-01-2022 15:58-0500 Heart rate 85 /min Tamra Grewal MD Work Phone: [facility] 05-01-2022 15:58-0500 Respiratory rate 18 /min Tamra Grewal MD Work Phone: [facility] 05-01-2022 15:58-0500 SaO2% (BldA) [Mass fraction] 97 % Tamra Grewal MD Work Phone: [facility] 05-01-2022 15:58-0500 Systolic blood pressure 147 mm[Hg] Tamra Grewal MD Work Phone: [facility] 01-24-2022 14:00-0400 Diastolic blood pressure 88 mm[Hg] Rachid Odell MD Work Phone: [facility] 01-24-2022 14:00-0400 Heart rate 80 /min Rachid Odell MD Work Phone: [facility] 01-24-2022 14:00-0400 Systolic blood pressure 134 mm[Hg] Rachid Odell MD Work Phone: [facility] 11-23-2021 11:27-0400 Blood Pressure Location Natalie MICHEL [facility] 11-23-2021 11:27-0400 Diastolic blood pressure 91 mm[Hg] Natalie MICHEL [facility] 11-23-2021 11:27-0400 Heart rate 71 /min Natalie MICHEL [facility] 11-23-2021 11:27-0400 Respiratory rate 16 /min Natalie MICHEL [facility] 11-23-2021 11:27-0400 Systolic blood pressure 152 mm[Hg] Natalie MICHEL [facility] 10-09-2021 15:00-0400 Body height 171.45 cm Mook Santiago Other [facility] Other 10-09-2021 15:00-0400 Body mass index (BMI) [Ratio] 36.26 kg/m2 Mook Santiago Other [facility] Other 10-09-2021 15:00-0400 Body weight 106.6 kg Mook Santiago Other [facility] Other 10-09-2021 15:00-0400 Diastolic blood pressure 85 mm[Hg] Mook Santiago Other [facility] Other 10-09-2021 15:00-0400 Systolic blood pressure 154 mm[Hg] Mook Santiago Other [facility] Other Encounters Encounter Date Encounter Type Care Provider Facility Start: 07-01-2024 End: 07-01-2024 ambulatory [facility] Work Phone: Start: 07-01-2024 End: 07-01-2024 Patient encounter procedure [facility] Work Phone: Start: 03-22-2024 End: 03-22-2024 ambulatory [facility] Work Phone: Start: 03-22-2024 End: 03-22-2024 Patient encounter procedure [facility] Physician [facility] Work Phone: Start: 02-20-2024 End: 02-20-2024 Patient encounter procedure Rachid Odell MD Work Phone: Neurology Comment on above: Essential tremor (Pr imary Dx) Start: 02-20-2024 End: 02-20-2024 ambulatory MANAV Klein FOSTER Facility:[facility] Start: 02-16-2024 End: 02-16-2024 Telephone encounter Tamra Grewal MD Work Phone: Cardiology Comment on above: question Start: 02-14-2024 End: 02-14-2024 Telephone encounter Gurpreet Cruz APRN.[employer]EL OPERATOR Work Phone: Cardiothoracic Comment on above: Results Start: 02-10-2024 Non-patient / Non-visit [facility] Work Phone: Start: 01-09-2024 End: 01-09-2024 ambulatory [facility] Work Phone: Start: 01-09-2024 End: 01-09-2024 Patient encounter procedure [facility] Work Phone: Start: 11-14-2023 Non-patient / Non-visit [facility] Work Phone: Start: 09-03-2023 End: 09-03-2023 ambulatory [facility] Work Phone: Start: 09-03-2023 End: 09-03-2023 Patient encounter procedure [facility] Work Phone: Start: 08-22-2023 End: 08-22-2023 Patient encounter procedure Rachid Odell MD Work Phone: Neurology Comment on above: Neuropathy (Primary Dx); Essential tremor Start: 08-22-2023 End: 08-22-2023 ambulatory MANAV RAJAN Facility:[facility] Start: 08-04-2023 Refill Rachid Odell MD Work Phone: Neurology Comment on above: Refill Request Start: 07-08-2023 End: 07-08-2023 Patient encounter procedure [facility] Physician [facility] Work Phone: Start: 07-03-2023 Non-patient / Non-visit [facility] Physician [facility] Work Phone: Start: 07-02-2023 Follow-up encounter Tamra Grewal MD Work Phone: [facility] Start: 07-02-2023 Pacemaker Remote F/U Tamra Grewal MD Work Phone: [facility] Department Start: 05-23-2023 End: 05-23-2023 ambulatory Manav Rajan Other [facility] Other Start: 05-23-2023 Transitional care manage srvc 14 day discharge Manav Rajan [facility] Start: 05-19-2023 End: 05-19-2023 ambulatory Manav Rajan Other [facility] Other Start: 05-19-2023 Telephone encounter Manav BEY [facility] Start: 05-14-2023 End: 05-14-2023 ambulatory Manav Rajan Other [facility] Other Start: 05-14-2023 Telephone encounter Manav BEY G [facility] Start: 05-10-2023 End: 05-10-2023 ambulatory Manav Rajan Other [facility] Other Start: 05-10-2023 Telephone encounter Manav BEY [facility] Start: 05-03-2023 Office outpatient vi sit 15 minutes Nina Wallace [facility] Start: 05-03-2023 End: 05-03-2023 ambulatory Nina Wallace [facility] [employer] Other Start: 05-03-2023 End: 05-03-2023 Departed [employer] PRESSER-C Nina Wallace Work Phone: [facility] [place] Work Phone: Start: 04-30-2023 End: 05-01-2023 ambulatory PA-C CARMINA THOMAS Facility:[facility] Start: 04-30-2023 End: 04-30-2023 Patient encounter procedure CARMINA THOMAS [facility] Start: 04-17-2023 End: 04-18-2023 ambulatory Roseann X Orzech Facility:[facility] Start: 04-17-2023 End: 04-18-2023 ambulatory Roseann X Orzech Facility:[facility] Start: 04-17-2023 End: 04-17-2023 Lab Drop off Roseann X Orzech [facility] Start: 04-17-2023 End: 04-17-2023 Patient encounter procedure Roseann X Orzech [facility] Start: 04-16-2023 End: 04-16-2023 ambulatory MANAV RAJAN Facility:[facility] Start: 04-16-2023 Follow-up encounter Tamra Grewal MD Work Phone: [facility] Start: 04-16-2023 End: 04-16-2023 Patient encounter procedure Tamra Grewal MD Work Phone: [facility] Department Comment on above: Pacemaker (Primary D x) Start: 04-11-2023 End: 04-11-2023 ambulatory Manav Rajan Other [facility] Other Start: 04-11-2023 Telephone encounter Manav Rajan [facility] Start: 04-10-2023 End: 04-10-2023 ambulatory Manav Rajan Other [facility] Other Start: 04-10-2023 Telephone encounter Manav Rajan MAIDA G [facility] Start: 04-02-2023 Follow-up encounter Tamra Grewal MD Work Phone: [facility] Start: 04-02-2023 Pacemaker Remote F/U Tamra Grewal MD Work Phone: [facility] Start: 03-04-2023 Refill Rachid Odell MD Work Phone: Neurology Comment on above: Refill Request Start: 02-20-2023 End: 02-20-2023 ambulatory Rachid Odell MD Work Phone: Neurology Comment on above: Essential tremor (Pr imary Dx) Start: 02-20-2023 End: 02-20-2023 Telemedicine consultation with patient Rachid Odell MD Work Phone: [facility] Start: 02-19-2023 End: 02-19-2023 ambulatory Manav Rajan Other [facility] Other Start: 02-19-2023 Nursing evaluation o f patient and report Manav Rajan [facility] Start: 01-22-2023 Follow-up encounter Tamra Grewal MD Work Phone: [facility] Start: 01-22-2023 Pacemaker Remote F/U Tamra Grewal MD Work Phone: [facility] Start: 01-07-2023 End: 01-07-2023 ambulatory Manav Rajan Other [facility] Other Start: 01-07-2023 Telephone encounter Manav Rajan MAIDA G [facility] Start: 01-06-2023 End: 01-06-2023 ambulatory Manav Rajan Other [facility] Other Start: 01-06-2023 Patient encounter procedure Manav Rajan [facility] Start: 01-03-2023 End: 01-03-2023 ambulatory Manav Rajan Other [facility] Other Start: 01-03-2023 Office outpatient vi sit 15 minutes Manav Ball [facility] Start: 01-02-2023 End: 01-02-2023 ambulatory Manav Rajan Other [facility] Other Start: 01-02-2023 Telephone encounter Manav Rajan FP G [facility] Start: 01-01-2023 Follow-up encounter Tamra Grewal MD Work Phone: [facility] Start: 01-01-2023 Pacemaker Remote F/U Tamra Grewal MD Work Phone: [facility] Start: 11-25-2022 End: 11-26-2022 ambulatory Natalie MICHEL Facility:[facility] Start: 09-30-2022 Follow-up encounter Tamra Grewal MD Work Phone: [facility] Start: 09-30-2022 Pacemaker Remote F/U Tamra Grewal MD Work Phone: [facility] Start: 09-04-2022 End: 09-04-2022 ambulatory Manav Rajan Other [facility] Other Start: 09-04-2022 Telephone encounter Manav BEY G [facility] Start: 08-21-2022 End: 08-21-2022 ambulatory Manav Rajan Other [facility] Other Start: 08-21-2022 Office outpatient vi sit 25 minutes Manav Rajan [facility] Start: 08-20-2022 End: 08-20-2022 Patient encounter procedure Rachid Odell MD Work Phone: Neurology Comment on above: Tremor (Primary Dx); Vertigo Start: 08-15-2022 End: 08-15-2022 ambulatory Manav Rajan Other [facility] Other Start: 08-15-2022 Telephone encounter Manav Rajan [facility] Comment on above: Appointment Start: 08-14-2022 End: 08-14-2022 ambulatory Manav Rajan Other [facility] Other Start: 08-14-2022 Nursing evaluation o f patient and report Manav Rajan [facility] Start: 07-29-2022 End: 07-29-2022 ambulatory Manav Rajan Other [facility] Other Start: 07-29-2022 Telephone encounter Manav Rajan FP [facility] Start: 07-17-2022 End: 07-17-2022 ambulatory Manav Rajan Other [facility] Other Start: 07-17-2022 Office outpatient vi sit 15 minutes Manav Rajan [facility] Start: 07-17-2022 Telephone encounter Manav Rajan FP [facility] Start: 07-12-2022 End: 07-12-2022 Emergency department patient visit MANAV RAJAN [facility] Start: 07-12-2022 End: 07-12-2022 Emergency department patient visit Km Jason DO Work Phone: [facility] Comment on above: Dizziness (Primary D x) Start: 07-11-2022 End: 07-12-[address] MANAV RAJAN Facility:[facility] Start: 07-02-2022 End: 07-02-2022 ambulatory Manav Rajan Other [facility] Other Start: 07-02-2022 Telephone encounter Manav Rajan FP [facility] Start: 07-01-2022 Follow-up encounter Tamra Grewal MD Work Phone: [facility] Start: 07-01-2022 Pacemaker Remote F/U Tamra Grewal MD Work Phone: [facility] Start: 06-29-2022 End: 06-29-[address] AMNAV RAJAN Facility:[facility] Start: 06-28-2022 End: 06-28-2022 ambulatory Manav Rajan Other [facility] Other Start: 06-28-2022 Telephone encounter Manav Mohini Uriel [facility] Start: 06-25-2022 End: 06-25-2022 ambulatory Manav Rajan Other [facility] Other Start: 06-25-2022 Telephone encounter Manav BEY [facility] Start: 05-01-2022 Follow-up encounter Tamra Grewal MD Work Phone: [facility] Start: 05-01-2022 End: 05-01-2022 Patient encounter procedure Tamra Grewal MD Work Phone: [facility] Department Comment on above: Pacemaker (Primary D x) Start: 04-01-2022 Follow-up encounter Tamra Grewal MD Work Phone: [facility] Start: 04-01-2022 Pacemaker Remote F/U Tamra Grewal MD Work Phone: [facility] Start: 01-24-2022 End: 01-24-2022 Patient encounter procedure Rachid Odell MD Work Phone: Neurology Comment on above: Essential tremor (Pr imary Dx) Start: 01-07-2022 End: 01-08-[address] MANAV RAJAN Facility:[facility] Start: 12-31-2021 Follow-up encounter Tamra Grewal MD Work Phone: [facility] Start: 12-31-2021 Pacemaker Remote F/U Tamra Grewal MD Work Phone: [facility] Start: 11-23-2021 End: 11-23-2021 Patient encounter procedure Natalie MICHEL [facility] Start: 11-20-2021 End: 11-21-[address] MANAV RAJAN Facility:[facility] Start: 10-09-2021 End: 10-09-2021 ambulatory Mook Santiago Other [facility] Other Start: 10-09-2021 Office outpatient ne w 45 minutes Mook SMITH [facility] Start: 08-21-[address] MANAV Mortenseni ty:[facility] Start: 05-15-2020 End: 05-15-2020 Subsequent hospital visit by physician Linda Cottrell 1 Work Phone: Radiology Comment on above: Carpal tunnel syndro me of right wrist [G56.01] Start: 07-14-2017 Ambulatory [facility] Procedures Date Procedure Procedure Detail [...] 07-12-2022 C-reactive protein h igh sensitivity Km Jason DO Work Phone: Start: 07-12-2022 Comprehensive metabo lic panel Km Jason DO Work Phone: Start: 07-12-2022 Urinalysis microscopic only Km Wisemanito DO Work Phone: Start: 07-12-2022 Urnls dip stick/tabl et rgnt auto w/o microscopy Km Rod Romito DO Work Phone: Start: 07-01-2022 PACEMAKER REMOTE CHECK Tamra Grewal MD Work Phone: Start: 05-01-2022 PACEMAKER CLINIC CHECK Tamra Grewal MD Work Phone: Start: 11-21-2022 PACEMAKER REMOTE CHECK Tamra Grewal MD Work Phone: Start: 12-31-2021 PACEMAKER REMOTE CHECK Tamra Grewal MD Work Phone: Start: 05-15-2020 Radex wrist 2 views Gabe hugo Johnson MD Work Phone: Start: 10-24-2016 Cystoscopic removal [...] microalbumin profile DTaP,Tdap,Td Vaccine (2 - Tdap) [facility] Start: 07-12-2025 Diabetes Screening Diabetes Screenin g [facility] Start: 08-20-2024 End: 08-20-2024 Patient encounter procedure 08/20/2024 2:20 PM EDT Office Visit Neurology [id number] [place] [address] [place] [id number] [place] [address] 6 Month Follow Up Neurology Comment on above: 6 Month Follow Up Start: 04-19-2024 End: 04-19-2024 Patient encounter procedure Cardiology Comment on above: Device Check Return in 1 year (ar ound 04/16/24) with device check Start: 02-20-2024 End: 02-20-2024 Patient encounter procedure 02/20/2024 2:20 PM EDT Office Visit Neurology [id number] [place] [address] [place] [id number] [place] [address] Return in about 6 months (around 02/21/2024). Neurology Comment on above: Return in about 6 mo nths (around 02/21/2024). Start: 01-11-2024 Covid-19 Vaccine () Covid-19 Vaccine () [facility] Start: 01-11-2024 Influenza vaccination [facility] Start: 05-12-2023 Advance Directive Discussion Advance Directive Discussion [facility] Start: 05-03-2023 Bacteria identified in Urine by Culture [facility] Start: 01-10-2023 Covid-19 Vaccine ( season) Covid-19 Vaccine () [facility] Start: 01-10-2023 Influenza vaccination C [facility] Start: 05-12-2022 ADVANCE DIRECTIVE DISCUSSION ADVANCE DIRECTIVE DISCUSSION [facility] Start: 01-10-2022 Influenza vaccination INFLUENZA (#1) [facility] Start: 12-10-2021 Influenza vaccination Flu vaccine (# 1) [facility] Start: 05-12-2021 ADVANCE DIRECTIVE DISCUSSION ADVANCE DIRECTIVE DISCUSSION [facility] Start: 01-15-2021 COVID-19 VACCINE (3 - Booster for Pfizer series) COVID-19 VACCINE (3 - Booster for Pfizer series) [facility] Start: 10-10-2020 COVID-19 VACCINE (3 - Booster for Pfizer series) COVID-19 VACCINE (3 - Booster for Pfizer series) [facility] Start: 10-10-2020 Covid-19 Vaccine (3 - Pfizer series) Covid-19 Vaccine (3 - Pfizer series) [facility] Start: 09-04-2019 DIABETES SCREEN DIABETES SCREEN [facility] Start: 09-04-2019 Diabetes Screening Diabetes Screenin g [facility] Start: 2017 RSV Vaccine (1 - 1-d ose 75+ series) RSV Vaccine (1 - 1-dose 75+ series) [facility] Start: 02-25-2014 Pneumococcal Vaccine : 65+ (2 - PCV) Pneumococcal Vaccine: 65+ (2 - PCV) [facility] Start: 02-25-2014 Pneumococcal Vaccine : 65+ (2 of 2 - PCV) Pneumococcal Vaccine: 65+ (2 of 2 - PCV) [facility] Start: 02-25-2014 PNEUMOCOCCAL: 65+ (2 - PCV) PNEUMOCOCCAL: 65+ (2 - PCV) [facility] Start: 2007 BONE DENSITY BONE DENSITY [facility] Start: 2007 Bone Density Screening Bone Density Screening [facility] Start: 2007 Screening for osteoporosis Bone Density Screening [facility] Start: 2002 RSV Vaccine (1 - 1-d ose 60+ series) RSV Vaccine (1 - 1-dose 60+ series) [facility] Start: 1997 Screening for osteoporosis DEXA (modify frequency per FRAX score) [facility] Start: 1992 Shingles vaccine (1 of 2) Shingles vaccine (1 of 2) [facility] [facility] Start: 1992 SHINGRIX VACCINE (1 of 2) SHINGRIX VACCINE (1 of 2) [facility] Start: 1961 DTaP/Tdap/Td vaccine (1 - Tdap) DTaP/Tdap/Td vaccine (1 - Tdap) [facility] Start: 1961 Urine microalbumin profile [facility] Start: 1960 ANNUAL PCP TEAM TRANSITION MANAGER FAVIAN DISEASE VISIT ANNUAL PCP TEAM CHRONIC DISEASE VISIT [facility] Start: 1960 Anxiety Screening Anxiety Screening [facility] Start: 1960 BP CONTROLLED (<130/80) BP CONTROLLE D (<130/80) [facility] Start: 1954 Depression Screen Depression Screen [facility] End: 07-12-2022 Culture, Blood 1 [facility] Work Phone: Comment on above: One Time for 1 Occur ashley starting 07/12/2022 until 07/12/2022 End: 07-12-2022 Culture, Blood 2 CHARANJIT SPAIN [facility] Work Phone: Comment on above: One Time for 1 Occur rences starting 07/12/2022 until 07/12/2022 ECG COMPLETE ECG COMPLETE ECG Routine Pacemaker Ordered: 04/16/2023 [facility] Work Phone: Comment on above: Ordered: 04/16/2023 [facility] Immunizations Immunization Date Immunization Notes Care Provider Fa jaida 11-25-2016 diphtheria, tetanus toxoids and acellular pertussis vaccine, unspecified formulation Manav Rajan Other [facility] 02-25-2013 pneumococcal polysaccharide vaccine, 23 valent Tamra Grewal MD Work Phone: [facility] 01-11-2011 tuberculin skin test ; purified protein derivative solution, intradermal Gurpreet Cruz APRN.CNP Work Phone: [facility] Payers Date Payer Category Payer Self-pay 2016 Private Health Insurance [facility] AARP SUPPLEMENT [id number] 2016-Present [phone] [address] [place] [address] Indemnity [id number] 2012 Medicare [id number] 2007 Medicare MEDICARE MEDICAR E A AND B [id number] 2007-Present [phone] [address] [address] [place] [address] Medicare [id number] 1959 Medicare [id number] 1959 Self-pay [id number] 1959 Unknown [id number] 1942 Unknown [id number] .593 1942 Unknown [id number] .593 1942 Unknown [id number] 2.16.840.1.154815.3.579.2 .593 1942 Unknown [id number] 2.16.840.1.015282.3.579.2 .593 1942 Unknown [id number] [id number] .593 1942 Unknown [id number] 2.16.840.1.300724.3.579.2 .182 1942 Unknown [id number] 2.16.840.1.149402.3.579.2 .727 1942 Unknown [id number] 2.16.840.1.480271.3.579.2 .727 1942 Unknown [id number] 2.16.840.1.989170.3.579.2 .727 1942 Unknown [id number] 2.16.840.1.907292.3.579.2 .727 Medicare [id number] Private Health Insurance [facility] [id number] Unknown [facility] Health Claims [id number] Unknown [id number] Social History Date Type Detail Facility Unknown if ever smoked [facility] Other Start: 08-20-2022 End: 02-20-2023 [facility] [email or web address] Other Start: 11-23-2021 End: 07-03-2023 Tobacco smoking status Never smoked tobacco (finding) [facility] Start: 04-22-2017 End: 01-24-2022 Tobacco use and exposure Smokeless tobacco non-user [facility] Start: 07-24-2021 End: 02-20-2024 Alcohol intake Current non-drinker of alcohol (finding) [facility] Start: 1940 Sex Assigned At Not on file [facility] Start: 04-15-2020 End: 07-12-2022 Exposure to SARS-CoV-2 (event) Not sure [facility] Start: 08-20-2022 End: 02-20-2023 History of Social function [facility] National Score (1-100), lower number is lower risk 62 [facility] Start: 1940 Sex Assigned At Female F [facility] Start: 03-22-2024 End: 07-01-2024 Sex Female (finding) [facility] Medical Equipment Procedure Code Equipment Code Equipment Origin al Text Equipment Identifier Dates Cochlear Drill Countersink 4mm - [id number] Start: 06-26-2009 Cochlear Flange Fix Str 4mm - [id number] Start: 06-26-2009 Qkv-Sm-U-Kind Implant - [id number] Start: 01-07-2011 Comment on above: Description: Surgica l simplex P Radiopaque bone cement Comp Fem 5 Rt Kn Cr Jim Trthln - [id number] Start: 01-07-2011 Ins Tib 4 11mm K n X3 Cr Trthln - [id number] Start: 01-07-2011 Comp Pat 10mm 35 mm Asym Trthln - [id number] Start: 01-07-2011 Baseplt Tib Trth ln 4 Prim - [id number] Start: 01-07-2011 Blood Sugar Diagnostic (True [...] Test Strip) strip Start: 07-03-2023 End: 08-06-2023 [id number] [facility] [id number] Start: 02-27-2015 [id number] [facility] [id number] Start: 02-27-2015 Pacemaker-2240 [id number] -[id number] Start: 02-27-2015 USE 1 STRIP TO CHECK BLOOD SUGAR ONCE DAILY*E11.65* Start: 01-03-2024 Blood Sugar Diagnostic (True Metrix Glucose Test [...] Test Strip) strip Start: 07-03-2023 End: 08-06-2023 Goals Date Patient Goal Desired Activity /State Personal health goal Functional Status Date Assessment Result Facility 04-17-2023 Functional Status N/A [facility] 11-23-2021 Functional Status N/A [facility] Clinical Notes 10-09-2021 to 02-20-2024 Rachid Odell MD - 02/20/2024 1:59 PM EDTSRachid estrada MD - 02/20/2024 1:48 PM EDTTelephone Yadira Chinchilla RN - 02/16/2024 5:05 PM EDT Note Date & Type Note Facility 02-20-2024 Note HNO ID: [id number] Author: RACHID ODELL MD Service: ? Author Type: Physician Type: Progress Notes Filed: 02/20/2024 14:10 Note Text: 02/19/2023 PROMIS Global Health Physical Health Summary Physical health: Good Everyday physical activity, ability: Moderately Fatigue: Mild Pain level: 2 General health: Good Social activities/roles, ability: Physical Health T-Score 44.9 (Good) Physical Health Percentile 31 PROMIS Global Health Mental Health Summary Quality of life: Good Mental health (mood,thinking): Good Social satisfaction: Emotional problems (anxious,depressed): Sometimes Mental Health T-Score Mental Health Percentile No [...] worse than population and warrants attention [facility] 02-20-2024 History of Presen t illness Narrative 02/19/2023 PROMIS Global Health Physical Health Summary Physical health: Good Everyday physical activity, ability: Moderately Fatigue: Mild Pain level: 2 General health: Good Social activities/roles, ability: Physical Health T-Score 44.9 (Good) Physical Health Percentile 31 PROMIS Global Health Mental Health Summary Quality of life: Good Mental health (mood,thinking): Good Social satisfaction: Emotional problems (anxious,depressed): Sometimes Mental Health T-Score Mental Health Percentile No [...] SD worse than population and warrants attention NEUROLOGY PROGRESS NOTE Rufino Collins is a 83 year old female. Who has a history of tremor comes in for follow up. Interval History [...] sometimes difficulty with balance. Patient doing well paresthesias of the feet 20 mg of nortriptyline has been helping. She continues to be happy with 40 mg of propranolol a day for tremors. Medications have been refilled. ACTIVE PROBLEM LIST Hearing Loss, Sensorineural, Unilateral [...] on File Prior to Visit Medication Sig TRUE METRIX GLUCOSE TEST STRIP test strip USE 1 STRIP TO CHECK BLOOD SUGAR ONCE DAILY*E11.65* glimepiride (AMARYL) 1 mg tablet Take 1 mg by mouth daily with breakfast. Acetaminophen-Caffeine (TENSION HEADACHE PAIN RELIEVER) 500-65 mg tab Take 2 tablets by mouth twice daily. 2 tablets in am, 1 tablet after lunch Vitamin E, dl, acetate, (VITAMIN E) 400 unit capsule Take 400 Units by mouth as needed. vit B complx-folic ac-C-biotin 1 mg-100 mg- 300 mcg tab Take by mouth. loratadine-pseudoephedrine ER (CLARITIN-D 24) 10-240 mg Tb24 Take 1 tablet by mouth once daily. busPIRone (BUSPAR) 15 mg tablet Take 1 tablet by mouth twice daily. Cholecalciferol, Vitamin D3, 10,000 unit cap Take by mouth once daily. levothyroxine (SYNTHROID) 100 mcg tablet Take 1 tablet by mouth daily before breakfast. (Patient taking differently: Take 112 mcg by mouth daily before breakfast.) VITAMIN B COMPLEX (B COMPLEX-100 ORAL) Take 1 capsule by mouth once daily. Patient denies taking this any longer Cinnamon Bark 500 mg cap Take 2 capsules by mouth once daily. pantoprazole DR (PROTONIX) 40 mg tablet Take 40 mg by mouth once daily. No current facility-administered medications on file prior [...] HPI. All systems reviewed and are negative 02/20/24 1354 BP: 130/60 BP Site: Left Arm BP Position: Sitting BP Cuff Size: Large Adult Pulse: 89 PHYSICAL EXAMINATION: General appearance: well appearing, alert, in no acute distress Neck: Supple Carotid Auscultation: Without bruits Lungs: Lungs clear to auscultation CVS: RRR without murmur Neurological exam: MENTAL STATUS: Alert, oriented to person, place and time and Follows commands CRANIAL NERVES: PERRLA, EOM's intact, Face symmetric, and Tongue protrudes midline MOTOR: No drift MOTOR STRENGTH: Upper and lower extremity 5/5 bilaterally SENSATION: Intact light touch COORDINATION: Finger-to- nose-finger intact bilaterally GAIT: Normal-based IMPRESSION: 1. Essential tremor PLAN: As above. Any problems or concerns to call me or primary care physician immediately or go straight to the emergency department Return in about 6 months (around 08/20/2024). ASSESSMENT/PLAN: 1. Essential tremor - ICD9: 333.1, ICD10: G25.0 Rachid Odell MD I spent a total of 30 minutes on the date of the service which included preparing to see the patient, lzap-yh-mart patient care, completing clinical documentation, obtaining and/or reviewing separately obtained history, performing a medically appropriate examination, counseling and educating the patient/family/caregiver, and ordering medications, tests, or procedures. SIGNATURE: Rachid Odell MD PATIENT NAME: Rufino Collins DATE: February 20, 2024 TIME: 2:08 PM 02/19/2023 PROMIS Global Health Physical Health Summary Physical health: Good Everyday physical activity, ability: Moderately Fatigue: Mild Pain level: 2 General health: Good Social activities/roles, ability: Physical Health T-Score 44.9 (Good) Physical Health Percentile 31 PROMIS Global Health Mental Health Summary Quality of life: Good Mental health (mood,thinking): Good Social satisfaction: Emotional problems (anxious,depressed): Sometimes Mental Health T-Score Mental Health Percentile No [...] and warrants attention documented in this encounter [facility] 02-20-2024 Note HNO ID: [id number] Author: RACHID ODELL MD Service: ? Author Type: Physician Type: Progress Notes Filed: 02/20/2024 14:10 Note Text: NEUROLOGY PROGRESS NOTE Rufino Collins is a 83 year old female. Who has a history of tremor comes in for follow up. Interval History [...] sometimes difficulty with balance. Patient doing well paresthesias of the feet 20 mg of nortriptyline has been helping. She continues to be happy with 40 mg of propranolol a day for tremors. Medications have been refilled. ACTIVE PROBLEM LIST Hearing Loss, Sensorineural, Unilateral [...] on File Prior to Visit Medication Sig TRUE METRIX GLUCOSE TEST STRIP test strip USE 1 STRIP TO CHECK BLOOD SUGAR ONCE DAILY*E11.65* glimepiride (AMARYL) 1 mg tablet Take 1 mg by mouth daily with breakfast. Acetaminophen-Caffeine (TENSION HEADACHE PAIN RELIEVER) 500-65 mg tab Take 2 tablets by mouth twice daily. 2 tablets in am, 1 tablet after lunch Vitamin E, dl, acetate, (VITAMIN E) 400 unit capsule Take 400 Units by mouth as needed. vit B complx-folic ac-C-biotin 1 mg-100 mg- 300 mcg tab Take by mouth. loratadine-pseudoephedrine ER (CLARITIN-D 24) 10-240 mg Tb24 Take 1 tablet by mouth once daily. busPIRone (BUSPAR) 15 mg tablet Take 1 tablet by mouth twice daily. Cholecalciferol, Vitamin D3, 10,000 unit cap Take by mouth once daily. levothyroxine (SYNTHROID) 100 mcg tablet Take 1 tablet by mouth daily before breakfast. (Patient taking differently: Take 112 mcg by mouth daily before breakfast.) VITAMIN B COMPLEX (B COMPLEX-100 ORAL) Take 1 capsule by mouth once daily. Patient denies taking this any longer Cinnamon Bark 500 mg cap Take 2 capsules by mouth once daily. pantoprazole DR (PROTONIX) 40 mg tablet Take 40 mg by mouth once daily. No current facility-administered medications on file prior [...] HPI. All systems reviewed and are negative 10/11/24 1354 BP: 130/60 BP Site: Left Arm BP Position: Sitting BP Cuff Size: Large Adult Pulse: 89 PHYSICAL EXAMINATION: General appearance: well appearing, alert, in no acute distress Neck: Supple Carotid Auscultation: Without bruits Lungs: Lungs clear to auscultation CVS: RRR without murmur Neurological exam: MENTAL STATUS: Alert, oriented to person, place and time and Follows commands CRANIAL NERVES: PERRLA, EOM's intact, Face symmetric, and Tongue protrudes midline MOTOR: No drift MOTOR STRENGTH: Upper and lower extremity 5/5 bilaterally SENSATION: Intact light touch COORDINATION: Finger-to- nose-finger intact bilaterally GAIT: Normal-based IMPRESSION: 1. (more content not included)... [facility] 02-16-2024 Telephone encount er Note Spoke with patient. Device has not connected recently. Attempted to trouble shoot several ways. Unable to get transmission to send. Gave number to [employer] to call and have them help troubleshoot monitor. [facility] 02-16-2024 Miscellaneous Notes Formattin g of this note might be different from the original. Spoke with patient. Device has not connected recently. Attempted to trouble shoot several ways. Unable to get transmission to send. Gave number to [employer] to call and have them help troubleshoot monitor. [facility]outing to the [facility] Pt calling Has pacemaker about 10 yrs Last office visit on 04/16/23, device check on Checks b/p at home Blood pressure monitor shows irregular heart beat the last 2 days No symptoms/ denies palpations/feeling of irregular HR-feels regular/dizziness/chest pain/ sob Did let her pcp know/ went to hospital on Friday at [facility] and had an EKG done and HR was 88 bpm but told by pcp everything was ok. Has an upcoming appointment for device check and provider appointment with cardiology on 04/19/24 Asking if anything showed up on monitor or if she should be concerned and can go about her activities (bike riding, etc) Pt can be reached at: [phone], ok to leave a message documented in this encounter [facility] 02-16-2024 Telephone encount er Note Routing to the pacer clinic [facility] 02-16-2024 Telephone encount er Note Pt calling Has pacemaker about 10 yrs Last office visit on 04/16/23, device check on Checks b/p at home Blood pressure monitor shows irregular heart beat the last 2 days No symptoms/ denies palpations/feeling of irregular HR-feels regular/dizziness/chest pain/ sob Did let her pcp know/ went to hospital on Friday at [facility] and had an EKG done and HR was 88 bpm but told by pcp everything was ok. Has an upcoming appointment for device check and provider appointment with cardiology on 04/19/24 Asking if anything showed up on monitor or if she should be concerned and can go about her activities (bike riding, etc) Pt can be reached at: [phone], ok to leave a message [facility] 02-14-2024 Telephone encount er Note [facility] Contact Center Phone Encounter DATE of SERVICE: 02/14/2024 TIME of SERVICE: 11:25 AM Status: Non-urgent, needs attention Service/Provider: Heart Failure Addis Herman M.D. Reason for call: Test Results Contact information: Rufino Collins Resolution: Reinforced Education Comments: patient has a PPM. Her bedside monitor started beeping this morning. She reset it and beeping stopped. Reports it happened in the past and she was told to reset it. She was completely asymptomatic. Instructed to continue to monitor and seek emergency help if she will be symptomatic. Patient understood and agreed. Gurpreet Cruz APRN.CNP Date of Resolution: 02/14/2024 Time of Resolution 11:25 AM [facility] Work Phone: 02-14-2024 Miscellaneous Notes Formattin g of this note might be different from the original. [facility] Contact Center Phone Encounter DATE of SERVICE: 02/14/2024 TIME of SERVICE: 11:25 AM Status: Non-urgent, needs attention Service/Provider: Heart Failure Addis Herman M.D. Reason for call: Test Results Contact information: Rufino Collins Resolution: Reinforced Education Comments: patient has a PPM. Her bedside monitor started beeping this morning. She reset it and beeping stopped. Reports it happened in the past and she was told to reset it. She was completely asymptomatic. Instructed to continue to monitor and seek emergency help if she will be symptomatic. Patient understood and agreed. Gurpreet Cruz APRN.CNP Date of Resolution: 02/14/2024 Time of Resolution 11:25 AM documented in this encounter [facility] 01-09-2024 Evaluation note Diagnosis Onset Date Resolution SHELLEY (generalized anxiety disorder) acute January 08 1:49pm Hypertension acute January 09, 2024 1:49pm Hypothyroidism acute December 1:49pm Obesity acute January 08 2 024 1:49pm Pacemaker acute January 08 2 024 1:49pm Type 2 diabetes mellitus with hyperglycemia acute January 09, 2024 1:49pm Medicare annual wellness visit, subsequent noneactive January 08, 2 024 1:49pm [facility] Work Phone: [phone] 122-798904-12-2024 NoteHNO ID: [id number] Author: RACHID ODLEL MD Service: ? Author Type: Physician Type: [...] to call me or (more content not included)...[facility]04-12-2024 History of Present illness Narrative* Rachid Odell MD - 08/22/2023 1:52 PM EDT NEUROLOGY PROGRESS NOTE Rufino Collins [...] 1961 Adenoidectomy CHG HYSTERECTOMY W/ 1979 CHOLECYSTECTOMY 1973 PAST SURGICAL HISTORY OF lens of both [...] which included preparing to see the patient, hvlz-rp-kvxh patient care, completing clinical documentation, obtaining and/or [...] SD worse than population and warrants attention * Alycia Raygoza LPN - 08/22/2023 1:27 PM EDT 02/19/2023 PROMIS Global Health Physical [...] population and warrants attention [facility]24 NoteHNO ID: [id number] Author: ALYCIA RAYGOZA LPN Service: ? Author [...] 1 SD worse than population and [facility] Miscellaneous Notes* Telephone Encounter - Denise Gonzales - 08/04/2023 12:14 PM EDT Patient has been identified by name and date of : Yes Requested Prescriptions Pending Prescriptions Disp Refills nortriptyline (PAMELOR) 10 mg capsule 90 capsule 0 Sig: Take 1 capsule by mouth daily at bedtime. 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 No change [...] bedtime. Smaller, frequent meals may be better tolerated.Weight loss if overweight.Monitor for dysphagia. Continue Pepcid [facility] 12-30-2023 Evaluation note* Encounter Date Diagnosis Assessment Notes Treatment Notes Treatment Clinical Notes Apr, Acute cystitis without hematuria (ICD-10 - N30.00) [facility] 12-23-2023 Evaluation note* Encounter Date Diagnosis [...] the ER for worsening symptoms or concerns [facility] 12-07-2023 Hospital Discharge instructions Patient Education [...] include: ?8 oz (237 mL) of milk, uqonnwt-pjskzngzwpgs-gesqk milk, and calcium- fortifiedfruit juice. Calcium-fortified means [...] ?Spinach (cooked), rhubarb, beets, sweet potatoes, and [place] chard. ?Peanuts. ?Potato chips, kenyan fries, and baked potatoes with skin on. ?Nuts and nut products. ?Chocolate. If you regularly take a diuretic medicine, make sure to eat at least 1 or 2 servings of fruits or vegetables that are high in potassium each day. These include: ?Avocado. ?Banana. ?Putnam, prune, carrot, or tomato juice. ?Baked potato. [...] magnesium, fish oil, or vitamin B6. Take vnoi-tvc-ewleyly and prescription medicines only as told by [...] Casseroles. Pizza. Lasagna. Frozen meals. Potato chips. Chinese fries. The items listed above may not [...] provider. Document Revised: 08/08/2022 Document Reviewed: 08/08/2022 [employer] Patient Education 2022 Vdolg. Follow Up Care 04/15/2023 08:26:17 With:PEEWEE Luna APRN, RUDY Metz, URL Address: When: Unknown Comments:Pending sxs after abx course. [facility] 12-06-2023 NoteHNO ID: [id number] Author: Tamra Grewal MD Service: Electrophysiology Author Type: Physician Type: Progress Notes Filed: 04/17/2023 10:03 PM Note Text: [facility] NOTE DEPARTMENT OF CARDIOLOGY BARBY NAME: PRUDENCE COLLINS NO.: [id number] DATE OF SERVICE: 04/16/2023 PCP: Manav Rajan [...] 1 year. DICTATED BY: Dai Ontiveros/Hoda JOB# [id number] Valley Surgical Hospital11-[facility] Evaluation note* Encounter Date Diagnosis Assessment Notes Treatment Notes Treatment Clinical Notes Mar, Dysuria (ICD-10 - R30.0) Mar, SHELLEY (generalized anxiety disorder) (ICD-10 - F41.1) [facility] 10-24-2023 Miscellaneous Notes* Telephone Encounter - [...] patient. Casandra Lambert Ma documented in this encounterAs[facility] History of Present illness Narrative* Rachid Odell [...] (Sleep study not recommended) documented in this encounterAsht[facility]10-11-2023 Evaluation note* Encounter Date Diagnosis Assessment Notes Treatment Notes Treatment Clinical Notes Feb, Dysuria (ICD-10 - R30.0) test ran by YVES Zhu [facility] 08-28-2023 Evaluation note* Encounter Date Diagnosis [...] taking extra 1/2 of the Buspar daily 15/7.5Dec, Autoimmune thyroidit is (ICD-10 - E06.3) Euthyroid, [...] and to contact office for any changes [facility] 08-25-2023 Evaluation note* Encounter Date Diagnosis Assessment Notes Treatment Notes Treatment Clinical Notes Dec, Acute non-recurrent maxillary sinusitis (ICD-10 - J01.00) Instructed to use Robitussin or Mucinex for cough, saline or Flonase NS for congestion, Tylenol for pain and fever. [facility] 04-12-2023 Evaluation note* Encounter Date Diagnosis [...] is (ICD-10 - E06.3) Euthyroid, yearly TSH [facility] 04-11-2023 History of Present illness Narrative* [...] which included preparing to see the patient, jqyq-pi-nhki patient care, completing clinical documentation, obtaining and/or reviewing separately obtained history, performing a medically appropriate examination, counseling and educating the pat ient/family/caregiver, and ordering medications, tests, or procedures. SIGNATURE: Rachid Odell MD PATIENT NAME: Rufino Collins DATE: August 20, 2022 TIME: 1:59 PM documented in this encounterAshtabula [facility]04-10-2023 Miscellaneous Notes* Telephone Encounter - Mariposa Kirby [...] [Other], Levofloxacin, and Sulfa (Sulfonamide Antibiotics) (home) [phone] (cell) Reason for call: The appointment center [...] not asked Karla Jackson documented in this encounterAshtabula [facility] Center04-05-2023 Evaluation note* Encounter Date Diagnosis Assessment Notes Treatment Notes Treatment Clinical Notes Aug, Dysuria (ICD-10 - R30.0) [facility] 03-08-2023 Evaluation note* Encounter Date Diagnosis [...] reviewed at the office visit. A1C: yearly Kili Other 03-03-2023 Hospital Discharge instructions* Discharge Instructions* Km Jason, - 07/12/2022 6:54 PM EST X-ray shows [...] be sent through Care Everywhere. * Dizziness (Paraguayan) * Alta Maneuver: Vertigo: Exercises (Paraguayan) * Vertigo (Paraguayan) * Vertigo: Cawthorne Exercises (Paraguayan) [facility] [place] Phone: [phone]) 178-665602-21-2023 Evaluation note* Encounter Date Diagnosis Assessment Notes Treatment Notes Treatment Clinical Notes Jun, Chronic maxillary sinusitis (ICD-10 - J32.0) [facility] Other 09-15-2022 History of Present illness Narrative* [...] which included preparing to see the patient, pabo-pi-ranc patient care, completing clinical documentation, obtaining and/or reviewing separately obtained history, performing a medically appropriate examination, counseling and educating the pat ient/family/caregiver, and ordering medications, tests, or procedures. SIGNATURE: Rachid Odell MD PATIENT NAME: Rufino Collins DATE: January 24, 2022 TIME: 2:17 PM [facility] in [facility] Discharge instructions Patient Education 11/23/2021 11:38:26 [...] 04/14/2013 Document Revised: 12/16/2018 Document Reviewed: 12/16/2018 Elsevier Patient Education 2020 [employer] 11/23/2021 11:25:05 Kidney Stones, Fpvw-ud-Elsq Kidney Stones Kidney stones are rock-like masses [...] Follow these instructions at home: Medicines Take onxx-oyh-gdqmuba and prescription medicines only as told by [...] 10/14/2008 Document Revised: 09/14/2019 Document Reviewed: 09/14/2019 [employer] Patient Education 2019 V[employer]. Follow Up Care 09/18/2020 14:42:38 With:ANAND ALMARAZ, Natalie Mosley, URL Address: [address] [place] [address]- When:Within 1 Year(s) Comments:w/ MARCELINO [facility] 05-31-2022 Evaluation note* Encounter Date Diagnosis Assessment Notes Treatment Notes Treatment Clinical Notes September, GERD (gastroesophageal reflux disease) (ICD-10 - K21.9) Continue Pantoprazole 40mg daily September, Irritable bowel syndrome with diarrhea (ICD-10 - K58.0) Continue Dicyclomine prn September, Hemorrhoids (ICD-10 - K64.9) Start Anusol cream [facility]ili Other Evaluation + Plan note Future Appointments Appointment Date:11/25/2022 01:15:00 PM Scheduled Provider:Natalie MICHEL MD Location:[facility] Appointment Type:URO Office Visit [facility] evaluation + Plan note Future Appointments Appointment Date:04/30/2023 11:00:00 AM Scheduled Provider: Location:[facility] Appointment Type:URO Nurse Visit [facility] Evaluation + Plan note Future Appointments Appointment Date:04/30/2023 11:00:00 AM Scheduled Provider: Location:[facility] Appointment Type:URO Nurse Visit Diagnostic Tests Pending * Urine Culture 04/17/23 [facility] note* Diagnosis Essential tremor- Primary Essential and other specified forms of tremor documented in this encounter [facility] note* Diagnosis Pacemaker- Primary Cardiac pacemaker in situ documented in this encounter [facility] note* Diagnosis Dizziness- Primary Dizziness and giddiness documented in this encounter [facility] Work Phone: evaluation noteNo InformationNort [employer] Other Evaluation note* Diagnosis Tremor- Primary Abnormal involuntary movements Vertigo Dizziness and giddiness documented in this encounter [facility] note* Diagnosis Essential tremor- Primary Essential and other specified forms of tremor [facility]* Diagnosis Pacemaker- Primary Cardiac pacemaker in situ documented in this encounter [facility] noteNo assessment information availableK[facility] Work Phone: Evaluation note* Diagnosis Neuropathy- Primary Mononeuritis of unspecified site Essential tremor Essential and other specified forms of tremor documented in this encounter [facility] note* Diagnosis Onset Date Resolution Status SHELLEY (generalized anxiety disorder) acute Hypertension acute Hypothyroidism acute Obesity acute Pacemaker acute Type 2 diabetes mellitus with hyperglycemia acute Maxillary sinusitis acute [facility] Work Phone: Evaluation note* Diagnosis Onset Date Resolution Status SHELLEY (generalized anxiety disorder) acute Hypertension acute Hypothyroidism acute Obesity acute Pacemaker acute Type 2 diabetes mellitus with hyperglycemia acute Medicare annual wellness visit, subsequent noneactive [facility] Work Phone: Evaluation note* Diagnosis Carpal tunnel syndrome of right wrist Carpal tunnel syndrome Pacemaker reprogramming/check Fitting and adjustment of cardiac pacemaker documented in this encounter [facility] note* Diagnosis Essential tremor- Primary Essential and other specified forms of tremor Pacemaker reprogramming/check Fitting and adjustment of cardiac pacemaker documented in this encounter [facility] general Narrative - Reported* Type Description Date [...] ABOVE SURGERY Hospitalization History kidney stones 10/2016 [place] [employer] Other Hospital course Narrative No data available for this section [facility] Discharge instructions No data available for this section [facility] No data available for this section [facility] Jam reason for referral (narrative)* Outpatient Procedure (Routine) - Pending Review Specialty Diagnoses / Procedures Referred By Luiz t Referred To [facility] Diagnoses Pacemaker Procedures ECG COMPLETE ECG ROUTINE ECG W/LEAST 12 LDS W/I&[place] [address] [place] [address] [facility] [address] [place] [address] Referral ID Status Reason Start Date Expiration Date Visits Requested Visits Authorized [id number] Pending Review Auto-Generat ed Referral 04/16/2023 04/15/2024 1 1 [facility] Summary Purpose Family History Relationship Condition Age at Onset Recorded Date/T ayla father Unknown family member Unknown Not Specified Unknown Relationship Condition Age at Onset Recorded Date/T ayla father Unknown family member Unknown mother Unknown Advance Directives Documents on File Type Date Recorded Patient In Processing Instructor Expl anation Advance Directive(s) Advance Directive(s) 01/16/2007 Documents on File Type Date Recorded Patient In Processing Instructor Expl anation Advance Directive(s) Advance Directive(s) 01/16/2007 Advance Directive Response Recorded Date/ Time Advance Directives No April 2:23pm Advance Directive Response Recorded Date/ Time Advance Directives No April 1:23pm Chief Complaint and Reason for Visit Chief [...] with hyperglycemia Medicare annual wellness visit, subsequent Chief Complaint Admit Date MEDICARE WELLNESS January 09, 2024 1: 49pm u/a March 22, 2024 1:45pm Reason for Visit Admit Date SHELLEY (generalized anxiety disorder) Augus t 2023 1:49pm Hypertension January 09, 2024 1: 49pm Hypothyroidism January 09, 2024 1: 49pm Obesity January 09, 2024 1: 49pm Pacemaker January 09, 2024 1: 49pm Type 2 diabetes mellitus with hyperglyce vickie January 09, 2024 1:49pm Medicare annual wellness visit, christianoe nt January 09, 2024 1:49pm Chief Complaint Admit Date monico SUMMERS cloudy July 01 9:37am Additional Source Comments INFORMATION SOURCE (unrecogn ized section and content) DATE CREATED AUTHOR 10/31/2017 [facility] DATE CREATED AUTHOR AUTHOR'S ORGANIZ ATION 07/17/2022 [facility] DATE CREATED AUTHOR AUTHOR'S ORGANIZ ATION 07/19/2022 [facility] DATE CREATED AUTHOR AUTHOR'S ORGANIZ ATION 05/01/2023 [facility] DATE CREATED AUTHOR AUTHOR'S ORGANIZ ATION 05/07/2023 [facility] DATE CREATED AUTHOR AUTHOR'S ORGANIZ ATION 02/23/2024 [facility] REASON FOR VISIT (unrecogniz ed section and content) Reason Comments Established Patient Reason Comments Follow Up 1 Year Follow Up/Dev ice Check Reason Comments Dizziness Reason Comments Appointment Reason Comments New Patient Evaluation Reason Comments Tremor Reason Onset Date Comments Refill Request 03/04/2023 Reason Comments Follow Up Reason Onset Date Comments Refill Request 08/04/2023 Reason Comments Results Reason Comments question Reason Comments Radiology XR Reason Comments Tremor Neuropathy Follow Up Established Patient Care Team (unrecognized sect ion and content) Team Status: Active Member Role Status Dates Manav Rajan DO Primary Care Provider Active Team Status: Inactive Member Role Status Dates Manav Rajan DO Primary Care Provide r, Attending Provider Active Start: January 09, 2024 End: January 09, 2024 Team Status: Active Member Role Status Dates Manav Rajan DO Primary Care Provide r, Attending Provider Active Start: February 10, 2024 Team Status: Inactive Member Role Status Dates Manav Rajan DO Primary Care Provide r, Attending Provider Active Start: March 22, 2024 End: March 22, 2024 Agriculture Sales Account Manager Relationship Specialty Start Date End Date Manav Rajan DO PCP - General Internal Medicine 02/07/15 Tamra Grewal MD Primary Staff Physician Cardiology 07/28/18 Agriculture Sales Account Manager Relationship Specialty Start Date End Date Manav Rajan, DO PCP - General Internal Medicine 02/07/15 Tamra Grewal MD Primary Staff Physician Cardiology 07/28/18 Agriculture Sales Account Manager Relationship Specialty Start Date End Date Manav Rajan, DO PCP - General Internal Medicine 02/07/15 Tamra Grewal MD Primary Staff Physician Cardiology 07/28/18 Agriculture Sales Account Manager Relationship Specialty Start Date End Date Manav Rajan DO PCP - General Internal Medicine 02/07/15 Tamra Grewal MD Primary Staff Physician Cardiology 07/28/18 Agriculture Sales Account Manager Relationship Specialty Start Date End Date Manav Rajan DO PCP - General Internal Medicine 04/23/17 Agriculture Sales Account Manager Relationship Specialty Start Date End Date Manav Rajan DO PCP - General Internal Medicine 02/07/15 Tamra Grewal MD Primary Staff Physician Cardiology 07/28/18 Agriculture Sales Account Manager Relationship Specialty Start Date End Date Manav Rajan DO PCP - General Internal Medicine 02/07/15 Tamra Grewal MD Primary Staff Physician Cardiology 07/28/18 Agriculture Sales Account Manager Relationship Specialty Start Date End Date Manav Rajan DO PCP - General Internal Medicine 02/07/15 Tamra Grewal MD Primary Staff Physician Cardiology 07/28/18 Agriculture Sales Account Manager Relationship Specialty Start Date End Date Manav Rajan DO PCP - General Internal Medicine 02/07/15 Tamra Grewal MD Primary Staff Physician Cardiology 07/28/18 Agriculture Sales Account Manager Relationship Specialty Start Date End Date Manav Rajan DO PCP - General Internal Medicine 02/07/15 Tamra Grewal MD Primary Staff Physician Cardiology 07/28/18 Agriculture Sales Account Manager Relationship Specialty Start Date End Date Manav Rajan DO PCP - General Internal Medicine 02/07/15 Tamra Grewal MD Primary Staff Physician Cardiology 07/28/18 Agriculture Sales Account Manager Relationship Specialty Start Date End Date Manav Rajan DO PCP - General Internal Medicine 02/07/15 Tamra Grewal MD Primary Staff Physician Cardiology 07/28/18 Agriculture Sales Account Manager Relationship Specialty Start Date End Date Manav Rajan DO PCP - General Internal Medicine 02/07/15 Tamra Grewal MD Primary Staff Physician Cardiology 07/28/18 Team Status: Inactive Member Role Status Dates Nina Wallace NP-C Attending Provider Active Agriculture Sales Account Manager Relationship Specialty Start Date End Date Manav [...] Member Role Status Dates Carmina Noyola APRN NP-C Attending Provider Act nguyen Start: September 03, 2023 End: September 03, 2023 Manav Rajan DO Primary Care Provider Active Start: September 03, 2023 End: September 03, 2023 Team Status: Active Member Role Status Dates Manav Rajan DO Primary Care Provide r, Attending Provider Active Start: November 14, 2023 Agriculture Sales Account Manager Relationship Specialty Start Date End Date Manav Rajan DO PCP - General Internal Medicine 02/07/15 Tamra Grewal MD Primary Staff Physician Cardiology 07/28/18 Agriculture Sales Account Manager Relationship Specialty Start Date End Date Manav Rajan DO PCP - General Internal Medicine 02/07/15 Tamra Grewal MD Primary Staff Physician Cardiology 07/28/18 Team Status: Inactive Member Role Status Dates Manav Rajan DO Primary Care Provide r, Attending Provider Active Start: July 01, 2024 End: July 01, 2024 Source Comments (unrecognize d section and content) In the event this informatio n is protected by the Federal Confidentiality of Alcohol and Drug Abuse Patient Records regulations: The Federal rules restrict any use of the information to criminally investigate or prosecute any alcohol or drug abuse patient.[facility] Center[facility] the event this information is protected by the Federal Confidentiality of Alcohol and Drug Abuse Patient Records regulations: The Federal rules restrict any use of the information to criminally investigate or prosecute any alcohol or drug abuse patient.[facility] CenterIn the event this information is protected by the Federal Confidentiality of Alcohol and Drug Abuse Patient Records regulations: The Federal rules restrict any use of the information to criminally investigate or prosecute any alcohol or drug abuse patient.[facility] CenterIn the event this information is protected by the Federal Confidentiality of Alcohol and Drug Abuse Patient Records regulations: The Federal rules restrict any use of the information to criminally investigate or prosecute any alcohol or drug abuse patient.[facility] CenterIn the event this information is protected by the Federal Confidentiality of Alcohol and Drug Abuse Patient Records regulations: The Federal rules restrict any use of the information to criminally investigate or prosecute any alcohol or drug abuse patient.[facility] CenterIn the event this information is protected by the Federal Confidentiality of Alcohol and Drug Abuse Patient Records regulations: The Federal rules restrict any use of the information to criminally investigate or prosecute any alcohol or drug abuse patient.[facility] CenterIn the event this information is protected by the Federal Confidentiality of Alcohol and Drug Abuse Patient Records regulations: The Federal rules restrict any use of the information to criminally investigate or prosecute any alcohol or drug abuse patient.[facility] CenterIn the event this information is protected by the Federal Confidentiality of Alcohol and Drug Abuse Patient Records regulations: The Federal rules restrict any use of the information to criminally investigate or prosecute any alcohol or drug abuse patient.[facility] CenterIn the event this information is protected by the Federal Confidentiality of Alcohol and Drug Abuse Patient Records regulations: The Federal rules restrict any use of the information to criminally investigate or prosecute any alcohol or drug abuse patient.[facility] CenterIn the event this information is protected by the Federal Confidentiality of Alcohol and Drug Abuse Patient Records regulations: The Federal rules restrict any use of the information to criminally investigate or prosecute any alcohol or drug abuse patient.[facility] CenterIn the event this information is protected by the Federal Confidentiality of Alcohol and Drug Abuse Patient Records regulations: The Federal rules restrict any use of the information to criminally investigate or prosecute any alcohol or drug abuse patient.[facility] CenterIn the event this information is protected by the Federal Confidentiality of Alcohol and Drug Abuse Patient Records regulations: The Federal rules restrict any use of the information to criminally investigate or prosecute any alcohol or drug abuse patient.[facility] CenterIn the event this information is protected by the Federal Confidentiality of Alcohol and Drug Abuse Patient Records regulations: The Federal rules restrict any use of the information to criminally investigate or prosecute any alcohol or drug abuse patient.[facility] CenterIn the event this information is protected by the Federal Confidentiality of Alcohol and Drug Abuse Patient Records regulations: The Federal rules restrict any use of the information to criminally investigate or prosecute any alcohol or drug abuse patient.[facility] CenterIn the event this information is protected by the Federal Confidentiality of Alcohol and Drug Abuse Patient Records regulations: The Federal rules restrict any use of the information to criminally investigate or prosecute any alcohol or drug abuse patient.[facility] CenterIn the event this information is protected by the Federal Confidentiality of Alcohol and Drug Abuse Patient Records regulations: The Federal rules restrict any use of the information to criminally investigate or prosecute any alcohol or drug abuse patient.[facility] CenterIn the event this information is protected by the Federal Confidentiality of Alcohol and Drug Abuse Patient Records regulations: The Federal rules restrict any use of the information to criminally investigate or prosecute any alcohol or drug abuse patient.[facility] CenterIn the event this information is protected by the Federal Confidentiality of Alcohol and Drug Abuse Patient Records regulations: The Federal rules restrict any use of the information to criminally investigate or prosecute any alcohol or drug abuse patient.[facility] CenterIn the event this information is protected by the Federal Confidentiality of Alcohol and Drug Abuse Patient Records regulations: The Federal rules restrict any use of the information to criminally investigate or prosecute any alcohol or drug abuse patient.[facility] CenterIn the event this information is protected by the Federal Confidentiality of Alcohol and Drug Abuse Patient Records regulations: The Federal rules restrict any use of the information to criminally investigate or prosecute any alcohol or drug abuse patient.[facility] CenterIn the event this information is protected by the Federal Confidentiality of Alcohol and Drug Abuse Patient Records regulations: The Federal rules restrict any use of the information to criminally investigate or prosecute any alcohol or drug abuse patient.[facility] CenterIn the event this information is protected by the Federal Confidentiality of Alcohol and Drug Abuse Patient Records regulations: The Federal rules restrict any use of the information to criminally investigate or prosecute any alcohol or drug abuse patient.[facility] CenterIn the event this information is protected by the Federal Confidentiality of Alcohol and Drug Abuse Patient Records regulations: The Federal rules restrict any use of the information to criminally investigate or prosecute any alcohol or drug abuse patient.[facility] Goals (unrecognized section and content) Goals may [...] BE BASED ON THE PRIMARY CLINICAL RECORDS. [facility]. provides no warranty or guarantee of the accuracy or completeness of information in this document.
[2024-07-09 15:19] LABS: Estimated Average Glucose 128 mg/dL; Glycohemoglobin A1C 6.1 % (4.5-6.2)
[2024-07-09 15:55] LABS: Bilirubin Urine NEGATIVE (NEGATIVE); Blood Urine TRACE-I (NEGATIVE); Clarity Urine CLOUDY (CLEAR); Color Urine YELLOW (YELLOW); Glucose Urine UA NEGATIVE (NEGATIVE); Ketones Urine NEGATIVE (NEGATIVE); Leukocyte Esterase Urine MODERATE (NEGATIVE); Nitrite Urine NEGATIVE (NEGATIVE); Protein Urine 30 mg/dL (NEG/TRACE); Specific Gravity Urine 1.025 (1.005-1.025); Urobilinogen Urine 0.2 EU/dL (0.2-1.0); pH Urine 5.5 (5.0-9.0)
[2024-07-09 16:03] LABS: Bacteria Urine MODERATE #/HPF (NONE SEEN); Calcium Oxalate Crystals Urine RARE; Crystals Seen? Seen #/HPF (None Seen); Mucus Urine TRACE (NONE SEEN); Squamous Epithelial Cell Urine FEW #/LPF (NONE/RARE); Transitional Epi Cells Urine MANY #/LPF (NONE SEEN); WBC Urine 50-75 #/HPF (NONE SEEN)
[2024-07-09 16:04] LABS: Cast Seen? NONE SEEN #/LPF (NONE SEEN); Urine Culture Indicated ALREADY ORDERED
== END 2024-07-09 14:11 | disposition home or self-care (01) ==
LOC: LAB 14:13
PROVIDERS: PCP Internal Medicine; Visit Provider Internal Medicine
DX: R30.0 Dysuria (principal); E11.65 Type 2 diabetes mellitus with hyperglycemia
CPT/HCPCS: 36415; 81001; 83036; 87086

== ENCOUNTER 2024-07-19 11:05 | Outpatient (REF) | payer MEDICARE, SELFPAY ==
[2024-07-19 11:19] LABS: Bilirubin Urine NEGATIVE (NEGATIVE); Blood Urine MODERATE (NEGATIVE); Color Urine LT. YELLOW (YELLOW); Glucose Urine UA NEGATIVE (NEGATIVE); Ketones Urine NEGATIVE (NEGATIVE); Leukocyte Esterase Urine LARGE (NEGATIVE); Nitrite Urine NEGATIVE (NEGATIVE); Protein Urine 30 mg/dL (NEG/TRACE); Specific Gravity Urine 1.015 (1.005-1.025); Urobilinogen Urine 0.2 EU/dL (0.2-1.0); pH Urine 5.5 (5.0-9.0)
[2024-07-19 11:21] LABS: Clarity Urine CLOUDY (CLEAR)
[2024-07-19 11:33] LABS: WBC Urine >100 #/HPF (NONE SEEN)
[2024-07-19 11:34] LABS: Bacteria Urine MODERATE #/HPF (NONE SEEN); Mucus Urine NONE SEEN (NONE SEEN); Squamous Epithelial Cell Urine FEW #/LPF (NONE/RARE); Urine Culture Indicated ALREADY ORDERED
== END 2024-07-19 11:06 | disposition home or self-care (01) ==
LOC: LAB 11:05
PROVIDERS: PCP Internal Medicine; Visit Provider Internal Medicine
DX: R30.0 Dysuria (principal)
CPT/HCPCS: 81001; 87086

== ENCOUNTER 2024-09-15 13:43 | Outpatient (OUT) | payer MEDICARE, SELFPAY ==
--- NOTE | 2024-09-15 13:46 | XR_ITS ---
The [address] [address] Patient Name: RUFINO SQUIRES MRN: [id number] date: 1940 Sex: F Assigned Patient Location: [facility] Current Patient Location: [facility] Accession/Order Number: [id number] Exam Date: 09/15/2024 15:05 Report Date: 09/15/2024 15:06 At the request of: AURY RAJAN DO Procedure: XR chest 2V Chest 2 views CLINICAL HISTORY: History Pneumonia COMPARISON: Chest 06/29/2022 FINDINGS: Pacemaker device in place. Heart is normal in size. Lungs are clear. No free air. XR/XR chest 2V IMPRESSION: NO ACUTE CARDIOPULMONARY ABNORMALITY. Impression dictated by: Matthias Vuong Jr., D.OYasmin 09/15/2024 3:06 PM Dictation Location: [place] [address] Electronically authenticated by: [id number] Date: 09/15/2024 15:06
== END 2024-09-15 13:44 | disposition home or self-care (01) ==
LOC: RAD 13:44
PROVIDERS: PCP Internal Medicine; Visit Provider Internal Medicine
DX: Z87.01 Personal history of pneumonia (recurrent) (principal); Z95.0 Presence of cardiac pacemaker
CPT/HCPCS: 71046

== ENCOUNTER 2025-01-11 14:36 | Outpatient (OUT) | payer MEDICARE, SELFPAY ==
[2025-01-11 15:05] LABS: Microalbum Creatinine Ratio Ur 16.0 mg/g (0.0-29.9)
--- OUTSIDE RECORDS SUMMARY | 2025-01-11 15:07 | XMS_ITS | CCD ---
Author Organization [facility] Care Team Providers Care Polymerization Helper Name Role Phone ERICKBRYANT Klein Unavailable Unavailable Mook Santiago Unavailable MANAV RAJAN Primary Care Physician [phone] Manav Rajan DO Primary Care Provider Tamra Grewal MD Unavailable Manav Rajan DO Primary Care Provider Tamra Grewal MD Unavailable [phone] Manav Rajan DO Primary Care Provider [phone] DR MANAV RAJAN Primary Care Unavailable ANAND, NATALIE Admitting Unavailable ANAND, NATALIE Attending Unavailable ANAND, NATALIE Consulting Unavailable AISHWARYA, DR MOOK Gordon Consulting Unavailable MOHINI, DR JEFFERS Primary Care Unavailable RUTHANN ., QUEENIE Admitting Unavailable RUTHANN ., QUEENIE Attending Unavailable ADIN KILLIAN Consulting Unavailable RUTHANN ., QUEENIE Consulting Unavailable JOEY MARLEY Consulting Unavailable ALLA MONTALVO Consulting Unavailable MOHINI, DR JEFFERS Primary Care Unavailable NATALIE MICHEL Attending Unavailable ANAND, NATALIE Admitting Unavailable BALL, DR JEFFERS Primary Care Unavailable MOHINI, DR JEFFERS Admitting Unavailable BALL, DR JEFFERS Attending Unavailable BALL, DR JEFFERS Consulting Unavailable MOHINI, DR JEFFERS Primary Care Unavailable MOHINI, DR JEFFERS Admitting Unavailable BALL, DR JEFFERS Attending Unavailable BALL, DR JEFFERS Consulting Unavailable MANAV RAJAN Primary Care Unavailable KM JASON Attending Unavailable Manav Rajan Unavailable Tamra Grewal MD Unavailable Nina Wallace Unavailable BUSHRA Wallace Attending Provider Manav Rajan DO Primary Care Provider Manav Rajan DO Attending Provider Manav Rajan DO Attending Provider Ball DO, Manav Primary Care Provider [phone] Medley , Adin Emergency Provider Dejan ALMARAZ, Gagan Klein Admit Provider Dejan ALMARAZ, Gagan Klein Attending Provider Jessica Linton MD Other Provider Jessica Linton MD Attending Provider [phone] Kareem Correa Attending Unavailable Sunny, Kareem Attending Unavailable GREWAL, TAMRA Referring Unavailable BALL, MANAV E Primary Care Unavailable SESE, RACHID T Attending Unavailable BALL, MANAV E Primary Care Unavailable NOLASCO, SETH Attending Unavailable GREWAL, TAMRA Referring Unavailable BALL, MANAV E Primary Care Unavailable SESE, RACHID T Attending Unavailable BALL, MANAV E Primary Care Unavailable Ball DO, Manav Attending Provider [phone] Ball, Manav Admitting Unavailable Ball, Manav Attending Unavailable Ball, Manav Primary Care Unavailable Lue, Jessica M Admitting Unavailable Lue, Jessica M Attending Unavailable Ball, Manav Primary Care Unavailable Doamekpor, Gagan E Admitting Unavailab le Doamekpor, Gagan E Attending Unavailab le Lue, Jessica M Consulting Unavailable Ball, Manav Primary Care Unavailable Lue, Jessica M Admitting Unavailable Lue, Jessica M Attending Unavailable Ball, Manav Attending Unavailable Ball, Manav Admitting Unavailable Lue, Jessica M. Attending Unavailable Lue, Jessica M. Admitting Unavailable Lue, Jessica M. Referring Unavailable Lue, Jessica M. Referring Unavailable Lue, Jessica M. Attending Unavailable Lue, Jessica M. Referring Unavailable Lue, Jessica M. Attending Unavailable Lue, Jessica M. Attending Unavailable Lue, Jessica M. Attending Unavailable Lue, Jessica M. Referring Unavailable Lue, Jessica M. Admitting Unavailable Lue, Jessica M. Attending Unavailable Lue, Jessica M. Referring Unavailable Allergies Allergy Classification Reported Allergen(s) Allergy Type Date of Onset Reaction(s) Facility (20 sources) acetaminophen / oxyCODONE; Translations: [OXYCODONE-ACETAMI NOPHEN] Drug Allergy 12-03-19 07 Intolerance [facility] Other [place] [facility] (20 sources) capsaicin; Translations: [CAPSAICIN] Drug Allergy 02-10-20 15 Itching [facility] Repository (20 sources) cephalexin; Translations: [CEPHALEXIN] Drug Allergy 07-23-19 17 Itching [facility] Repository (20 sources) clavulanic acid; Translations: [CLAVULANIC ACID] Drug Allergy 07-23-19 17 Itching [facility] Repository (20 sources) levoFLOXacin; Translations: [LEVOFLOXACIN] Drug Allergy 07-23-19 17 Itching [facility] Repository (20 sources) metroNIDAZOLE; Translations: [METRONIDAZOLE] Drug Allergy 07-23-19 17 Itching [facility] Repository (20 sources) moxifloxacin; Translations: [MOXIFLOXACIN] Drug Allergy 12-21-19 04 Unknown (qualifier value), Intolerance [facility] Repository (20 sources) pravastatin; Translations: [PRAVASTATIN SODIUM] Drug Allergy 06-15-19 10 Intolerance [facility] Repository (20 sources) Sulfonamides (Antibiotic); Translations: [SULFA (SULFONAMIDE ANTIBIOTICS)] Propensity to adverse reactions to drug (disorder) 12-21-19 04 GI Upset [facility] Repository (1 source) OTHER; Translations: [OTHER] Propensity to adverse reactions (disorder) 12-20-19 07 AOF [facility] Repository (20 sources) Acetaminophen / oxyCODONE; Translations: [acetaminophen-oxy codone] Drug Allergy Unknown (qualifier value) [employer] Other (1 source) Amoxicillin / Clavulanate Drug Allergy Unknown [facility] Other (20 sources) Sulfonamides (Antibiotic) Drug allergy Unknown [facility] Other (20 sources) Pepper Drug allergy Unknown [facility] Other (11 sources) Sulfonamides (Antibiotic); Translations: [sulfa drugs] Drug allergy Unknown (qualifier value) [facility] (11 sources) Peppers; Translations: [Peppers] Food allergy Unknown (qualifier value) [facility] (18 sources) hot peppers [Other] Propensity to adverse reactions 12-20-19 07 Itching [facility] Work Phone: (14 sources) oxyCODONE Drug Allergy 02-20-20 17 Unknown Reaction, Nausea [facility] Work Phone: (15 sources) Sulfonamides (Antibiotic) Propensity to adverse reactions to drug 06-09-19 15 Unknown [facility] Work Phone: (2 sources) Acetaminophen / oxyCODONE Drug Allergy 03-24-20 14 [facility] Repository (1 source) Amoxicillin Drug Allergy [facility] (2 sources) Ciprofloxacin Drug Allergy 10-23-19 17 [facility]ository (5 sources) moxifloxacin; Translations: [Avelox] Drug Allergy 03-24-20 14 [facility] (2 sources) Sulfonamides (Antibiotic) Drug allergy (disorder) 03-24-20 14 [facility]ository (20 sources) Amoxicillin-Pot Clavulanate Drug allergy Unknown [employer] Other (13 sources) Amoxicillin Drug Allergy Unknown [facility] Other (20 sources) metFORMIN Drug Allergy 09-03-19 24 Unknown, Unknown Reaction [facility] (14 sources) Pseudoephedrine Drug Allergy Unknown [employer] Other (20 sources) sulfADIAZINE Drug Allergy 09-03-19 24 Comment:Sulfa [facility] (14 sources) Avelox *FLUOROQUINOLONES* Propensity to adverse reactions Unknown [employer] Other (14 sources) Acetaminophen; Translations: [acetaminophen] Drug Allergy 09-03-19 24 Unknown Reaction, Nausea [facility] (14 sources) pepper (genus Capsicum); Translations: [pepper (genus Capsicum)] Allergy to substance 09-03-19 24 Unknown Reaction, Itching [facility] (3 sources) Acetaminophen / oxyCODONE; Translations: [Percocet 5/325] Drug Allergy [facility] Repository (1 source) metFORMIN Drug Allergy 08-27-19 25 [facility] Repository (1 source) oxyCODONE Drug Allergy 08-27-19 [facility] Repository (1 source) sulfADIAZINE Drug Allergy 08-27-19 [facility] Repository Medications Current Medications Medication Drug Class(es) Dates Sig (Normalized) Sig (Original) acetaminophen 325 mg oral tablet (5 sources) Start: 07-21-2024 Acetaminophen (Pain Reliever (Acetaminophen)) 325 mg tablet Active 650 MG PO Every 6 hours as needed for pain July 21, 2024 12:00am acetaminophen 500 mg / caffeine 65 mg oral tablet (20 sources) Central Nervous System Stimulant, Methylxanthine take 2 tablets by mouth twice daily, then take 2 tablets by mouth in the morning, then take 1 tablet by mouth after lunch Acetaminophen-Caff eine (TENSION HEADACHE PAIN RELIEVER) 500-65 mg tab [...] for 7 days Apr, Active ascorbic acid 100 mg / d-biotin 0.3 [...] by mouth daily 0 Active B-Complex SR (7 sources) Start: 02-17-2019 take 1 tablet by mouth once daily B-Complex SR tab(s), Oral, Daily, Refill(s) 0 Start Date: 02/17/19 Status: Ordered Repeat number: 1 Start: 02-17-2019 [facility] B-Complex SR tab(s), Oral, Daily, Refill(s) 0 Start Date: 02/17/19 Status: Ordered Blood-Glucose Meter (True Me trix Glucose Meter) [facility] (13 sources) Start: 07-03-2023 Blood-Glucose Meter (True Metrix Glucose Meter) [facility] Active 0 .Route July 03, 2023 12:00am to test blood sugar Start: 07-03-2023 Blood-Glucose Meter (True Metrix Glucose Meter) [facility] Active 0 .Route July 03, 2023 1:00am to test blood sugar cefdinir 300 mg oral capsule (2 sources) Cephalosporin Antibacterial Start: 08-16-2024 End: 08-23-2024 take 1 capsule by mouth every twelve hours cefdinir 300 mg Cap 300 mg = 1 cap(s), Oral, q12hr, X 7 day(s), # 14 cap(s), Refills(s) 0, Pharmacy: [facility]/pharmacy #[id number], 172, cm, 08/16/24 10:45:00 EDT, Height/Length Dosing, 100, kg, 08/16/24 10:45:00 EDT, Weight Dosing Start Date: 08/16/24 Stop Date: 08/23/24 Status: Ordered Quantity: 14.0 Unit: cap(s) Repeat number: 1 cephalexin 500 mg oral capsule (10 sources) Cephalosporin Antibacterial Start: 04-17-2023 End: 04-27-2023 take 1 capsule by mouth twice daily Keflex 500 mg Cap 500 mg = 1 cap(s), Oral, BID, X 10 day(s), # 20 cap(s), Refills(s) 0, Pharmacy: [facility]/pharmacy #[id number], 170, cm, 04/17/23 9:22:00 EST, Height/Length Dosing, 113.9, kg, 04/17/23 9:22:00 EST, Weight Dosing Start Date: 04/17/23 Stop Date: 04/27/23 Status: Ordered Start: 02-20-2023 take 1 tablet by jigna th twice daily Cephalexin 500 MG 1 tablet Orally bid w/ food for 5 days Feb, Active chlorthalidone 25 mg oral tablet (6 sources) Thiazide-like Diuretic Start: 04-17-2023 take 1 tablet by mouth once daily chlorthalidone 25 mg Tab 25 mg = 1 tab(s), Oral, Daily, # 30 tab(s), Refills(s) 6, Pharmacy: [facility]/pharmacy #[id number], 170, cm, 04/17/23 9:22:00 EST, Height/Length Dosing, 113.9, kg, 04/17/23 9:22:00 EST, Weight Dosing Start Date: 04/17/23 Status: Ordered Quantity: 30.0 Unit: tab(s) Repeat number: 7 Start: 04-23-2021 End: 04-18-2022 take 0.5 tablet by mouth once daily chlorthalidone 25 mg Tab half tab, Oral, Daily, X 30 day(s), # 15 tab(s), Refills(s) 11, Pharmacy: [facility]/pharmacy #[id number], 170, cm, 09/18/20 14:12:00 EDT, Height/Length [...] above: Take by mouth once d aily. Cinnamon Preparation (20 sources) Non-Standardized Food Allergenic Extract Cinnamon Active Coenzyme Q10 (CO Q 10 PO) (1 source) Coenzyme Q10 (CO Q 10 PO) Take by mouth 0 Active dicyclomine hydrochloride 10 mg oral capsule (20 sources) Anticholinergic Start: 11-23-2021 dicyclomine 10 mg Cap Refills(s) 0 Start Date: 11/23/21 Status: Ordered Repeat number: 1 take 1 tablet by jigna th every eight hours Dicyclomine HCl 20 MG 1 tablet Orally Th ree times a day Active doxycycline monohydrate 100 mg oral tablet (14 sources) Tetracycline-class Drug Start: 08-16-2024 End: 08-23-2024 take 1 tablet by mouth twice daily doxycycline monohydrate 100 mg oral tablet 100 mg = 1 tab(s), Oral, BID, X 7 day(s), # 14 tab(s), Refills(s) 0, [id number], cm, 08/16/24 10:45:00 EDT, Height/Length Dosing, 100, kg, 08/16/24 10:45:00 EDT, Weight Dosing Start Date: 08/16/24 Stop Date: 08/23/24 Status: Ordered Quantity: 14.0 Unit: tab(s) Repeat number: 1 Start: 07-02-2022 take 1 capsule by [facility] twice daily Doxycycline Hyclate 100 MG 1 capsule Orally twice daily for 10 days Jun, Active Estradiol (2 sources) Estrogen Start: 08-26-2024 Estradiol 0.01 % (0.1 mg/gram) cream Active VAGINAL August 26, 2024 12:00am Start: 08-23-2024 Estrace 0.1 mg /g Cream See Instructions, 42.5 gm, Refill(s) 2, Apply pea sized amount to urethra/vagina 3x a week for 1 month, then 2x a week afterwards, [facility]/pharmacy #[id number], 172, cm, 08/23/24 10:00:00 EDT, Height/Length Dosing, 105, kg, 08/23/24 10:00:00 EDT, Weight Dosing Start Date: 08/23/24 Status: Ordered Quantity: 42.5 Unit: g Repeat number: 3 Indications: Urinary tract infection, site not specified; Postmenopausal atrophic vaginitis; famotidine 10 mg oral tablet (14 sources) Histamine-2 Receptor Antagonist Start: 07-04-2023 take 1 tablet by mouth twice daily as needed Famotidine 10 mg tablet Active 10 MG PO Twice daily as needed for indigestion July 04, 2023 1:00am take 1 tablet by mouth every twe lve hours Pepcid AC 10 MG 1 tablet as needed Orally Twice a day Active fluconazole 150 mg oral tablet (1 source) Azole Antifungal Start: 08-18-2024 take 1 tablet by mouth once fluconazole 150 mg Tab 150 mg = 1 tab(s), Oral, Once, # 1 tab(s), Refills(s) 0, Pharmacy: [facility]/pharmacy #[id number], 172, cm, 08/16/24 10:45:00 EDT, Height/Length Dosing, 100, kg, 08/16/24 10:45:00 EDT, Weight Dosing Start Date: 08/18/24 Status: Ordered Quantity: 1.0 Unit: tab(s) Repeat number: 1 Indications: Acute candidiasis of vulva and vagina; glimepiride 1 mg oral tablet (20 sources) Sulfonylurea Start: 02-27-2024 take 1 tablet by mouth once daily Glimepiride 1 mg tablet Active 1 MG PO Daily February 27, 2024 10:14am Start: 12-10-2023 End: 02-27-2024 take 1 tablet by mouth once daily in the morning Glimepiride 1 mg tablet Discontinued 0 .ROUTE .COMPLEX December 10, 2023 12:50pm February 27, 2024 10:14am TAKE 1 TABLET BY MOUTH EVERY MORNING, ADMINISTER WITH BREAKFAST Start: 11-14-2023 End: 12-10-2023 take 1 tablet by mouth once daily at breakfast Glimepiride 1 mg tablet Discontinued 1 MG PO Every morning November 14, 2023 12:00am December 10, 2023 12:50pm administer with breakfast Hair Skin & Nails Gummies (20 sources) Hair Skin & Nail s Gummies Active hydrocortisone 25 mg/ml topical cream (20 sources) Corticosteroid Start: 07-04-2023 Hydrocortisone (Anusol-Hc) 2.5 % cream with perineal applicator Active 1 APPLIC TOPICAL Twice daily as needed for hemorrhoids July 04, 2023 1:00am Start: 10-09-2021 Anusol-HC 2.5 % 1 application Externally Twice a day for 14 days September, Active Start: 10-09-2021 Anusol-HC 2.5 % 1 application Externally Twice a day for 14 days September, Active [id number] (CEREFOLIN PO) (1 source) P-Tylfxebubncz-[id number] 12-[id number]-[id number] (CEREFOLIN PO) Take by mouth daily 0 Active levothyroxine sodium 0.112 m g oral tablet (20 sources) l-Thyroxi ne Start: Levothyroxine 112 mcg tablet Active 0 .ROUTE .COMPLEX February 20, 2024 6:56am TAKE 1 TABLET DAILY ON AN EMPTY STOMACH 90 Start: 07-04-2023 End: 02-20-2024 take 1 tablet by mouth once daily Levothyroxine 112 mcg tablet Discontinued 112 MCG PO Daily July 04, 2023 1:00am February 20, 2024 6:56am Start: 02-17-2019 Synthroid Oral , Daily, Refills(s) 0 Start Date: 02/17/19 Status: Ordered Repeat number: 1 Start: 02-17-2019 Synthroid Oral , Daily, Refills(s) [...] Multivitamin With Minerals (Hair,Skin And Nails) tablet (13 sources) Start: 07-04-19 take 1 tablet by mouth once daily Multivitamin With Minerals (Hair,Skin And Nails) tablet Active 1 TAB PO Daily July 04, 2023 12:00am Start: 07-04-2023 take 1 tablet by jigna th once daily Multivitamin With Minerals (Hair,Skin And Nails) tablet Active 1 TAB PO Daily July 04, 2023 1:00am nortriptyline 10 mg oral capsule (20 sources) Tricyclic Antidepressant Start: 11-25-2022 End: 02-21-2025 nortriptyline 10 mg Cap Refills(s) 0 Start Date: 7/17/23 Status: Ordered Repeat number: 1 Start: 11-25-2022 End: 11-17-2023 take 1 capsule [...] by mo uth two times a day. [place]-3 Fatty Acids (FISH OIL PO) (1 source) [place]-3 Fatty Ac ids (FISH OIL PO) Take by mouth 0 Active oxybutynin chloride 5 mg oral tablet (4 sources) Cholinergic Muscarinic Antagonist Start: 07-22-2024 Oxybutynin Chloride 5 mg tablet Active 5 MG PO 2-3 TIMES PER DAY as needed for bladder spasms July 22, 2024 12:00am pantoprazole (20 sources) Proton Pump Inhibitor Start: 02-17-2019 pantoprazole Daily, Refills(s) 0 Start Date: 02/17/19 Status: Ordered Repeat number: 1 Start: 02-17-2019 pantoprazole D aily, Refills(s) 0 Start Date: 02/17/19 Status: Ordered End: 07-14-2024 take 1 tablet by mouth once daily pantoprazole DR (PROTONIX) 40 mg tablet Take 40 mg by mouth once daily. 07/14/2024 Discontinued Comment on above: Take 40 mg by mouth once daily. Probiotic Product (ALIGN PO) (1 source) Probiotic Produc t (ALIGN PO) Take by mouth 0 Active propranolol hydrochloride 10 mg oral tablet (20 sources) beta-Adrenergic Claudia Start: 07-21-2024 take 1 tablet by mouth once daily Propranolol 10 mg tablet Active 10 MG PO Daily July 21, 2024 12:00am Start: 07-04-2023 take 1 tablet by jigna th three times daily Propranolol 20 mg tablet Active 20 MG PO Three times daily July 04, 2023 1:00am Start: 07-04-2023 take 1 tablet by jigna th four times daily Propranolol 20 mg tablet Active 20 MG PO Four times daily July 04, 2023 1:00am Start: 02-17-2019 propranolol Re fills(s) 0 Start Date: 02/17/19 Status: Ordered Repeat number: 1 Start: 02-17-2019 propranolol Re fills(s) 0 Start Date: 02/17/19 Status: Ordered Start: 06-22-2018 End: 02-21-2025 take 1 tablet by mouth four times daily propranolol (INDERAL) 10 mg tablet Take 1 tablet by mouth four times daily. 360 tablet 2 08/25/2024 02/21/2025 Active take 1 tablet by jigna th every six hours Propranolol HCl 20 MG 1 tablet Orally qid Active take 1 tablet by jigna th every twelve hours Propranolol HCl 20 MG 1 tablet Orally BID Active Comment on above: Take 1 tablet by jigna th four times daily. thiamine 100 mg oral tablet (9 sources) Start: 07-09-2024 take 1 capsule by mouth once daily Thiamine Hcl (Vitamin B1) 100 mg capsule Active 100 MG PO Daily July 09, 2024 1:00am turmeric extract 450 mg oral capsule (1 source) Turmeric 450 MG CAPS Take by mouth 0 Active Vitamin B Complex (20 sources) Start: 07-04-2023 take 1 tablet by [...] on above: Take 1 capsule by [facility] once daily. Patient denies taking this any longer Vitamin B Complex tablet (11 sources) Start: 07-04-2023 take 1 tablet by mouth once daily Vitamin B Complex tablet Active 1 TAB PO Daily July 04, 2023 1:00am Start: 07-04-2023 take 1 tablet by mouth once da edgardo Vitamin B Complex tablet Active 1 TAB PO Daily July 04, 2023 12:00am Vitamin D (20 sources) Vitamin D Active vitamin e 268 mg oral capsul e (20 sources) Vitamin E, dl, a cetate, (VITAMIN E) 400 unit capsule Take 400 Units by mouth as needed. Active Vitamin E, dl, a cetate, (VITAMIN E) 400 unit capsule Take 400 Units by mouth as needed. 0 Active Vitamin E Active Comment on above: Take 400 Units by mo ut as needed. Completed/Discontinued Medications Medication Drug Class(es) Dates Sig (Normalized) Sig (Original) amoxicillin 875 mg / clavulanate 125 mg oral tablet (4 sources) Penicillin-class Antibacterial Start: 07-23-2024 End: 08-26-2024 take 1 tablet by mouth twice daily Amoxicillin-Pot Clavulanate 875-125 mg tablet Discontinued 1 TAB PO Twice daily July 23, 2024 12:00am August 26, 2024 11:29am ascorbic acid 500 mg extended release oral capsule (13 sources) Vitamin C Start: 07-04-2023 End: 07-21-2024 take 1 capsule by mouth once daily Ascorbic Acid (Vitamin C) 500 mg capsule, extended release Discontinued 500 MG PO Daily July 04, 2023 1:00am July 21, 2024 4:49pm azithromycin 250 mg oral tablet (15 sources) Macrolide Antimicrobial Start: 09-03-2023 End: 03-22-2024 Azithromycin 250 mg tablet Discontinued 250 MG PO daily 6 5 September 03, 2023 12:00am March 22, 2024 10:59pm Take 2 today and then 1 for the next 4 days Start: 01-03-2023 Azithromycin 2 50 MG as directed Orally daily for 5 days Dec, Active busPIRone hydrochloride 15 mg oral tablet (20 sources) Start: 09-24-2023 End: 12-09-2023 take 1 tablet by mouth twice daily Buspirone 15 mg tablet Discontinued 0 .ROUTE .COMPLEX 180 September 24, 2023 1:20pm December 09, 2023 6:17pm TAKE 1 TABLET BY MOUTH TWICE A DAY Start: 02-17-2019 busPIRone Oral , BID, Refills(s) 0 Start Date: 02/17/19 Status: Ordered Repeat number: 1 Start: 02-17-2019 busPIRone Oral , BID, Refills(s) 0 Start Date: 02/17/19 Status: Ordered Start: 10-06-2018 End: 07-22-2024 take 1 tablet by mouth twice daily Buspirone 15 mg tablet Discontinued 15 MG PO Twice daily July 04, 2023 1:00am September 24, 2023 1:20pm BuSpar 15 mg BID Active Comment on above: Take 1 tablet by jigna twice daily. cinnamon bark 500 mg oral capsule (20 sources) Start: 07-04-2023 End: 07-21-2024 take 1 capsule by mouth once daily Cinnamon Bark (Cinnamon) 500 mg capsule Discontinued 500 MG PO Daily July 04, 2023 1:00am July 21, 2024 4:50pm End: 07-14-2024 take 2 capsules by mouth once daily Cinnamon Bark 500 mg cap Take 2 capsules by mouth once daily. 07/14/2024 Discontinued Comment on above: Take 2 capsules by [facility] once daily. cyclobenzaprine hydrochloride 10 mg oral tablet (2 sources) Muscle Relaxant Start: End: take 1 tablet by mouth three times daily as needed for pain cyclobenzaprine (FLEXERIL) 10 mg tablet Indications: Myalgia Take 1 tablet by mouth three times daily as needed for pain. 270 tablet 1 01/24/2021 01/24/2022 Discontinued (Discontinued by Patient) Comment on above: Take 1 tablet by [facility] three times daily as needed for pain. nitrofurantoin, macrocrystals 25 mg / nitrofurantoin, monohydrate 75 mg oral capsule (20 sources) Nitrofuran Antibacterial Start: End: take 1 capsule by mouth every twelve hours at mealtime Nitrofurantoin Monohyd/M-Cryst (Macrobid) 100 mg capsule Discontinued 100 MG PO Every 12 hours 2 August 03, 2024 12:00am August 26, 2024 11:29am must administer with a meal/food Start: 03-22-2024 End: 07-09-2024 take 1 capsule by mouth every twelve hours at mealtime Nitrofurantoin Monohyd/M-Cryst 100 mg capsule Discontinued 100 MG PO Every 12 hours 10 July 01, 2024 1:28pm July 09, 2024 2:32pm must administer with a meal/food Start: 05-03-2023 take 1 capsule by [facility] every twelve hours Macrobid 100 MG 1 cap(s) Orally bid for 5 day(s) 23 Dec, 2023 Active phenazopyridine hydrochloride 100 mg oral tablet (13 sources) Start: 07-15-2024 End: 07-21-2024 take 1 tablet by mouth three times daily Phenazopyridine (Pyridium) 100 mg tablet Discontinued 100 MG PO Three times daily 9 July 15, 2024 1:00am July 21, 2024 4:45pm Start: 05-03-2023 take 1 tablet by jigna th every eight hours Pyridium 200 MG 1 tablet after meals Orally Three times a day for 2 day(s) Apr, Active tolterodine tartrate 2 mg oral tablet (20 sources) Cholinergic Muscarinic Antagonist Start: 07-12-2024 End: 07-21-2024 take 1 tablet by mouth every twelve hours Tolterodine 2 mg tablet Discontinued 2 MG PO Every 12 hours 30 July 12, 2024 1:00am July 21, 2024 4:46pm Start: 07-22-2023 End: 07-09-2024 take 1 capsule by mouth once daily Tolterodine 2 mg capsule,extended release 24hr Discontinued 2 MG PO Daily 14 July 22, 2023 12:00am July 09, 2024 2:46pm Problems Active Problems Problem Classification Problem Date Documented Date Episodic/Chronic Abdominal pain (20 sources) Abdominal pain; Translations: [Unspecified abdominal pain] Onset: 07-22-19 25 07-21-2024 Episodic Anxiety disorders (20 sources) Anxiety; Translations: [Anxiety disorder, unspecified] Onset: 07-02-19 23 02-17-2019 Chronic Calculus of urinary tract (20 sources) Kidney stone; Translations: [Calculus of kidney] Onset: 11-21-19 Episodic Conditions associated with dizziness or vertigo (9 sources) Dizziness; Translations: [Dizziness and giddiness] Onset: 06-29-19 Episodic Conduction disorders (20 sources) Mobitz type II atrioventricular block; Translations: [Atrioventricular block, second degree] Onset: 02-27-20 15 02-26-2015 Chronic Diabetes mellitus with complications (20 sources) Type 2 diabetes mellitus with hyperglycemia; Translations: [Type 2 diabetes mellitus] Onset: 07-12-19 Chronic Diabetes mellitus without complication (8 sources) Diabetes mellitus 02-17-2019 Chronic Diverticulosis and diverticulitis (8 sources) Diverticular disease 02-17-2019 Chronic Esophageal disorders (20 sources) Gastroesophageal reflux disease; Translations: [Gastro-esophageal reflux disease without esophagitis] Onset: 10-10-19 Resolved : 10-10-19 Chronic Essential hypertension (20 sources) Hypertensive disorder; Translations: [Essential (primary) hypertension] Onset: 02-27-20 15 02-17-2019 Chronic Fluid and electrolyte disorders (1 source) Hypo-osmolality and hyponatremia Episodic Genitourinary symptoms and ill-defined conditions (16 sources) Urge incontinence; Translations: [Urge incontinence of urine] Onset: 11-24-19 Chronic Genitourinary symptoms and ill-defined conditions (20 sources) Nocturia; Translations: [Nocturia] Onset: 11-24-19 Episodic Malaise and fatigue (20 sources) Fatigue; Translations: [Other fatigue] Episodic Menopausal disorders (3 sources) Atrophic vaginitis; Translations: [Postmenopausal atrophic vaginitis] Onset: 08-24-19 Chronic Menopausal disorders (1 source) Hormone replacement therapy; Translations: [HORMONE REPLACEMENT THERAPY] Onset: 07-02-19 23 Episodic Mood disorders (20 sources) Depressive disorder; Translations: [Dysthymia] Onset: 07-23-19 17 02-17-2019 Chronic Nausea and vomiting (20 sources) Nausea; Translations: [Nausea] Episodic Osteoarthritis (20 sources) Osteoarthritis; Translations: [Osteoarthrosis, unspecified whether generalized or localized, lower leg] Onset: 05-29-19 11 05-29-2010 Chronic Other aftercare (1 source) Other jail (current) drug therapy; Translations: [OTH EDITOR IN CHIEF NEWSPAPER CURRENT DRUG THERAPY] Onset: 07-02-19 Episodic Other connective tissue disease (20 sources) History of total knee arthroplasty; Translations: [Presence of unspecified artificial knee joint] Onset: 02-06-20 11 02-05-2011 Chronic Other connective tissue disease (1 source) Presence of right artificial knee joint; Translations: [PRESENCE RT ARTIFICIAL KNEE JOINT] Onset: 07-02-19 Chronic Other diseases of bladder and urethra (5 sources) Lesion of bladder; Translations: [Bladder disorder, unspecified] 07-21-2024 Chronic Other diseases of bladder and urethra (5 sources) Hypertrophy of bladder; Translations: [Other specified disorders of bladder] 07-21-2024 Chronic Comment on above: CT: left sided bladd er wall thickening near the UVJ, mild left hydroureteronephrosis - 07/2024 Other diseases of bladder and urethra (9 sources) Other specified disorders of bladder; Translations: [Other specified disorders of bladder] Onset: 07-22-19 25 07-21-2024 Chronic Other diseases of bladder and urethra (6 sources) Bladder disorder, unspecified; Translations: [Unspecified disorder of bladder] Onset: 07-22-1907-21-2024 Chronic Other diseases of bladder and urethra (1 source) Disorder of bladder; Translations: [Other specified disorders of bladder] Onset: 08-24-19 Chronic Other diseases of kidney and ureters (5 sources) Hydronephrosis; Translations: [Unspecified hydronephrosis] 07-21-2024 Episodic Other diseases of kidney and ureters (5 sources) Hydroureteronephrosis ; Translations: [Unspecified hydronephrosis] 07-21-2024 Episodic Other diseases of kidney and ureters (14 sources) Unspecified hydronephrosis; Translations: [Hydronephrosis] Onset: 07-22-19 25 07-21-2024 Episodic Other ear and sense organ disorders (20 sources) Sensorineural hearing loss; Translations: [Unspecified sensorineural hearing loss] Onset: 05-16-19 10 05-16-2009 Chronic Other ear and sense organ disorders (1 source) Mixed conductive and sensorineural hearing loss, unilateral, left ear, with unrestricted hearing on the contralateral side; Translations: [Mixed hearing loss, unilateral] Onset: 02-21-20 17 02-20-2017 Chronic Other gastrointestinal disorders (20 sources) Irritable bowel syndrome with diarrhea; Translations: [Irritable bowel syndrome with diarrhea] Chronic Other gastrointestinal disorders (20 sources) Irritable bowel syndrome; Translations: [Irritable bowel syndrome without diarrhea] Chronic Other gastrointestinal disorders (2 sources) Irritable bowel syndrome with diarrhea Onset: 10-10-19 Resolved : 10-10-19 Chronic Other gastrointestinal disorders (20 sources) Constipation alternates with diarrhea; Translations: [Other specified symptoms and signs involving the digestive system and abdomen] Episodic Other gastrointestinal disorders (1 source) Swollen abdomen; Translations: [Abdominal distension (gaseous)] Episodic Other gastrointestinal disorders (20 sources) Flatulence, eructation and gas pain; Translations: [Abdominal distension (gaseous)] Episodic Other hereditary and degenerative nervous system conditions (6 sources) Essential tremor; Translations: [Essential tremor] Onset: 02-21-20 Chronic Other hereditary and degenerative nervous system conditions (1 source) Essential tremor; Translations: [Essential tremor] Onset: 08-26-19 Chronic Other nervous system disorders (20 sources) Carpal tunnel syndrome of right wrist; Translations: [Carpal tunnel syndrome, right upper limb] Onset: 05-30-1905-30-2020 Chronic Other nervous system disorders (1 source) Polyneuropathy; Translations: [Polyneuropathy, unspecified] Onset: 02-21-20 17 02-20-2017 Chronic Other nervous system disorders (1 source) Neuropathy; Translations: [Polyneuropathy, unspecified] 08-22-2023 Chronic Other nervous system disorders (20 sources) General unsteadiness; Translations: [Unsteadiness on feet] Episodic Other nervous system disorders (1 source) Tremor; Translations: [Tremor, unspecified] Episodic Other nervous system disorders (1 source) Paresthesia; Translations: [Paresthesia of skin] 08-25-2024 Episodic Other nervous system disorders (1 source) Paresthesia of skin; Translations: [Paresthesia of skin] Onset: 08-26-19 Episodic Other nutritional; endocrine; and metabolic disorders [...] Chronic Other nutritional; endocrine; and metabolic disorders (13 sources) Obesity; Translations: [Obesity, unspecified] 07-08-2023 Chronic Other nutritional; endocrine; and metabolic disorders (11 sources) Obesity, unspecified; Translations: [Obesity, unspecified] 07-08-2023 Chronic Other nutritional; endocrine; and metabolic disorders (20 sources) Decrease in appetite; Translations: [Anorexia] Episodic Other upper respiratory infections (20 sources) Chronic sinusitis, unspecified; Translations: [Chronic maxillary sinusitis] Onset: 07-02-19 Chronic Other upper respiratory infections (1 source) Acute maxillary sinusitis, unspecified Episodic Pneumonia (except that caused by tuberculosis or sexually transmitted disease) (2 sources) Pneumonia; Translations: [Pneumonia, unspecified organism] Onset: 08-17-19 Episodic Residual codes; unclassified (1 source) Acquired absence of other specified parts of digestive tract; Translations: [ACQ ABSENCE OTH PART DIGESTV TRACT] Onset: 07-02-19 Episodic Residual codes; unclassified (1 source) Acquired absence of both cervix and uterus; Translations: [ACQUIRED ABSENCE BOTH CERVIX AND UTERUS] Onset: 07-02-19 Episodic Residual codes; unclassified (1 source) Procedure and treatment not carried out because of patient's decision for unspecified reasons Episodic Retinal detachments; defects; vascular occlusion; and retinopathy (8 sources) 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 Thyroid disorders (20 sources) Hypothyroidism; Translations: [Hypothyroidism, unspecified] Onset: 02-27-2002-17-2019 Chronic Unclassified (4 sources) A [facility] screening has identified you as FRAIL or AT RISK FOR FRAILTY. This puts you at a higher risk for infection, illness, falls, and other injuries. Here are four ways to help you reduce your risk of frailty: 1. IDENTIFY EARLY SIGNS OF FRAILTY Discuss contributing factors and concerns with your doctor 2. BE ACTIVE Walking and light strengthening exercises will help reduce weakness 3. EAT WELL Aim for three healthy meals a day that are high in protein 4. THINK POSITIVE Keep your mind active by being sociable and continuing to learn References: Stay Strong: Four Ways to Beat the Frailty Risk [email or web address]-[email or web address] d-[email or web address]/stay-strong- yvbh-glbt-xb-xnlf-tql-kar ilty-risk 07-22-2024 Urinary tract infections (20 sources) Acute cystitis without hematuria; Translations: [Urinary tract infectious disease] Onset: 07-22-19 Episodic Past or Other Problems Problem Classification [...] Test Name Value Interpretation Reference Range Facility Ambulatory Visit Summaryon 0 10-28-2024 Ambulatory Visit Summary Ambulatory Visit Summary RUFINO COLLINS :1940 Visit Date:10/28/2024 Ambulatory Visit Instructions Your Diagnosis Kidney stone Vaginal atrophy Recurrent UTI Tests Performed US Renal -- Results Pending -- Please visit your patient portal for your results or contact your primary care physician. Your Care Team Attending Physician - Jessica Linton MD Primary Care Physician - MANAV RAJAN DO Referring Physician - Jessica Linton MD This Is Your Medications List estradiol topical (Estrace 0.1 mg/g Cream) Contact prescribing physician if questions or concerns busPIRone dicyclomine (dicyclomine 10 mg Cap) fluconazole (fluconazole 150 mg Tab) levothyroxine (Synthroid) multivitamin (B-Complex SR) nortriptyline (nortriptyline 10 mg Cap) propranolol Procedures Performed Cystoscopic removal of ureteric stent (10/24/2016), Cystoscopic laser lithotripsy of ureteric calculus (10/17/2016), Implantation of cardiac pacemaker (02/2015), Cystoscopic removal of ureteric stent (08/01/2014), Cystoscopic removal of ureteric stent (08/18/2011), ESWL - Extracorporeal shockwave lithotripsy for renal calculus (08/02/2011), Cystoscopic laser lithotripsy of ureteric calculus (06/28/2011), Carpal tunnel release, Knee replacement, Operative procedure on hand. Discharge Vitals Heart Rate (Peripheral) 80 Blood Pressure 128/80 Height 173 cm Height 68 in Weight 105.3 kg Weight 232.146 lb BMI 35.18 What to do next Scheduled Follow-Up Appointments Friday2025 1:00 PM EST With: Jessica Linton MD Where: [facility] [address] [place] [address]- You Need to Schedule the Following Appointments Follow Up with Jessica Linton MD, URL, URO When: Where: Medications What How Much When Why Instructions Unchanged estradiol topical (Estrace 0.1 mg/ g Cream) See instructions Vaginal atrophy Recurrent UTI Apply pea sized amount to urethra/ vagina 3x a week for 1 month, then 2x a week afterwards Unchanged busPIRone By Mouth 2 times a day Contact prescribing physician if questions or concerns Unchanged dicyclomine (dicyclomine 10 mg Cap) Contact prescribing physician if questions or concerns Unchanged fluconazole (fluconazole 150 mg Tab) 1 Tablets By Mouth Once Vulvovaginal candidiasis Contact prescribing physician if questions or concerns Unchanged levothyroxine (Synthroid) By Mouth Every day Contact prescribing physician if questions or concerns Unchanged multivitamin (B-Complex SR) By Mouth Every day Contact prescribing physician if questions or concerns Unchanged nortriptyline (nortriptyline 10 mg Cap) Contact prescribing physician if questions or concerns Unchanged propranolol Contact prescribing physician if questions or concerns Allergies Avelox (Unknown) Peppers (Unknown) Percocet 5/325 (Unknown) sulfa drugs (Unknown) Problems Ongoing - Any problem that you are currently receiving treatment for. Anxiety Depression Diabetes mellitus Diverticulosis Gastroesophageal reflux Hypertension Hypothyroidism Kidney stone Macular degeneration Nocturia Recurrent UTI Vaginal atrophy Patient Survey You may receive a survey via text or e-mail asking about your office visit. Please share your experience with us by completing your survey. We appreciate your feedback and thank you for choosing us for your care. Education Materials Dietary Guidelines to Help Prevent Kidney Stones [...] for following this plan? Reading food labels ??? Choose foods with no salt added or low-salt labels. Limit your salt (sodium) intake to less than 1,500 mg a day. ??? Choose foods with calcium for each meal and snack. Try to eat about 300 mg of calcium at each meal. Foods that contain 200???500 mg of calcium a serving include: ? 8 oz (237 mL) of milk, bejoslp-ipuxujubtnqy-lq iry milk, and calcium-fortifiedfruit juice. Calcium-fortified means that calcium has been [...] of sardines or mackerel. Most people need 1,000???1,500 mg of calcium a day. Talk to your dietitian about how much calcium is recommended for you. Shopping ??? Buy plenty of fresh frui (more content not included)... [facility] Reminderson 10-28-2024 Reminders Reminders From: Zeynep Escamilla To: EU - Recalls Lue; Sent: 10/28/2024 11:03:12 EDT Show up: 03/30/2025 10:03:00 EST Subject: Sched 6m SHREE Due Date/Time: 04/29/2025 10:03:00 EST Reminder Message Please Remember to: Please call pt to schedule SHREE for 6 mo appt. [facility]. Order in 10/28/24 encounter. Thanks! [facility] Urology Office/Clinic Noteon 10-28-2024 Urology Office/Clinic Note Urology Office/Clinic Note Chief Complaint 2 month f/u HPI Staff 84 year old female here for 6 week F/U with SHREE SHREE done 10/05/24 Cysto/Lt. RG pyelogram/Lt. ureteroscopy with laser litho/stent exchange/bladder BX with fulguration 08/03/24 Cysto/stent removal 08/23/24 BBS:12 NO urine given at the start of visit Pt states has been doing well since stent removal. Denies visible blood in urine, denies dysuria, denies abdominal or flank pain. Denies any urinary issues at this time. History of Present Illness Tests reviewed: UA, SHREE I have reviewed the previous health record information and history for this patient from Dr. Linton. I have reviewed and verified the staff HPI to be accurate for this encounter. Review of Systems PHQ Score Initial Depression Screen Score: 0 SCORE ROS - Provider Constitutional: denies weight loss, [...] HPI. Physical Exam Vitals & Measurements HR: 80(Peripheral) BP: 128/80 HT: 173 cm HT: 68 in WT: 105.3 kg WT: 232.146 lb BMI: 35.18 General Appearance: alert, no distress, well nourished, well developed adult. Assessment/Plan 84-year-old female seen during consultation for UTI, left hydroureteronephrosis down to the bladder wall with asymmetric thickening and a 10 x 7 mm left renal pelvis stone s/p stent 07/21/24. She underwent treatment and stent removal, here for follow up. 1. Kidney stone (N20.0: Calculus of kidney) Cysto, L rpg, L stent 07/22/24. Cysto, L rpg, L urs, laser litho, stent exchange, bladder bx/ fulguration 08/03/24. Stone debris was not sent for analysis. Bladder bx negative Cysto, stent removal 08/23/24. SHREE 10/05/24 [facility] - Minor L pelvocaliectasis. No R hydro. R mid to lower pole parapelvic cyst 2 cm. 12 mm LIP cyst. Possible renal and bladder stones. PVR 105 cc. Personal review: no bladder stones, no significant renal stones Reviewed imaging with pt, no significant stones. Could be debris or stones in the parenchyma. Will cont to monitor. As long as kidney fxn remains stable, not concerned about L pelvocaliectasis, secondary to bladder wall thickening from inflammation (bx neg). Educated pt on dietary modifications and fluid intake for stone prevention. Pt wishes to continue monitoring for stones. Follow up 6 mos with SHREE or sooner if needed. Pt understands and agrees with plan. -High fluid intake (1/4 cup lemon/rampart daily) 2. Vaginal atrophy (N95.2: Postmenopausal atrophic vaginitis) Severe vaginal atrophy on exam. Stage 2 cystocele/stage 3 rectocele noted intraop. [1] UA shows small leuks. Asx. No infections. BBS 12. Using Estrace cream. Does feel it is helping. Pt does have some bladder prolapse. Can f/u with truck driver about potential pessary if she desires. Urination not bothersome. -Cont cream -Timed voids q2-3hr, bladder emptying maneuvers 3. Recurrent UTI (N39.0: Urinary tract infection, site not specified) See #2. None since last seen. -Cont cream and cranberry extract Follow-up With When Contact Information Royer ALMARAZ, Jessica Garza, URL, URO Additional Instructions: 6 mos with SHREE at [facility] Patient Education Dietary Guidelines to Help Prevent Kidney Stones IZeynep, personally scribed for Dr. Linton on 10/28/2024 11:01:29. . Portions of this record may have been created with voice recognition artificial intelligence software, specifically [employer], [employer] and or [employer]. Substitutions may have occurred due to the inherent limitations of voice recognition and artificial intelligence software. Documentation recorded by the scribe, Zeynep Escamilla, accurately reflects the services(s) I performed and decisions made by me. Authenticated by Dr. Linton on 10/28/2024 13:31:50. Problem List/Past Medical History Ongoing Anxiety Depression Diabetes mellitus Diverticulosis Gastroesophageal reflux Hypertension Hypothyroidism Kidney stone Macular degeneration Nocturia Recurrent UTI Vaginal atrophy Historical No qualifying data Procedure/Surgical History Cystoscopic removal of ureteric stent (10/24/2016), Cystoscopic laser lithotripsy of ureteric calculus (10/17/2016), Implantation of cardiac pacemaker (02/2015), Cystoscopic removal of ureteric stent (08/01/2014), Cystoscopic removal of ureteric stent (08/18/2011), ESWL - Extracorporeal shockwave lithotripsy for renal calculus (08/02/2011), Cystoscopic laser lithotripsy of ureteric calculus (06/28/2011), Carpal tunnel release, Knee replacement, Operative procedure on fisher (more content not included)... [facility] Comment on above: Result Comment: Elec tronically Signed By: Royer ALMARAZ, Jessica Garza\.br\Date and Time Signed: 10/28/24 13:32 EDT\.br\Electronically Co-Signed By: Zeynep Escamilla\.br\Date and Time Co-Signed: 10/28/24 11:01 EDT\.br\Electronically Co-Signed By: Zeynep Escamilla\.br\Date and Time Co-Signed: 10/28/24 11:04 EDT US renal BIon 10-05-2024 US renal BI [facility] [place] [address] Ultrasound Report Signed Patient: Rufino Collins MR#: [id number] : 1940 Acct:[id number] Age/Sex: 84 / F ADM Date: 10/05/24 Loc: Room: Type: [facility] Attending Dr: Jessica Linton MD Ordering Provider: Jessica Linton MD Date of Service: 10/05/24 US/US renal BI: N20.0 Copies to: Jessica Linton MD BILATERAL RENAL AND BLADDER ULTRASOUND CLINICAL HISTORY: History of kidney stones COMPARISON: CT 07/21/2024 Estimation of renal size is approximately 11.1 cm on the right and 11.0 cm on the left. There are small echogenic corticomedullary foci bilaterally that may be stones. There is minor left pelvocaliectasis. There is no hydronephrosis on the right. A parapelvic right mid to lower pole renal cyst is noted measuring just over 2 cm in size. A tiny cyst is also visualized at the inferior pole on the left measuring 12 mm . There is no perinephric fluid. The urinary bladder is partially distended with a volume of 311 mL. The horticultural technical officer described echogenic foci along the posterior bladder wall. Bladder stones are difficult to exclude on the basis of this study. No other contour or intraluminal abnormalities are seen. The post void bladder residual is 105 mL US/US renal BI IMPRESSION: POSSIBLE NEPHROLITHIASIS AND BLADDER STONES. RENAL CYSTS. MINIMAL LEFT PELVOCALIECTASIS. POST VOID BLADDER RESIDUAL. Impression dictated by: Alla Putnam M.D. 10/05/2024 2:56 PM Dictation Location: [place] [address] Tech: Shirin Winslow Transcribed By: ADRIANO 10/05/24 1456 Dictated By: Alla Putnam MD 10/05/24 1448 Signed By: 10/05/24 1456 Normal [facility] [place] 08-25-2024 CNPN Telephone (NIQ) RUFINO COLLINS ([id number]) 1940 F Date Time Provider Department 08/25/24 RACHID ODELL During your visit today, we recorded the following information about you: Meghan Carrion 08/25/2024 9:33 AM Signed Rufino is calling Rachid Odell MD today with concern regarding appt today. She cannot get Zoom to download on her computer. She is hoping provider would be able to just do a phone call visit? Please advise Patient has been identified by name and birthdate. Duration of symptoms: N/A Person calling: self Call patient at: at home [phone] (home) [phone] (cell) Was an appointment scheduled: No Closing statement: Results or non-symptom based questions: Thank you for calling [facility], your call will be returned within the next business day. Meghan Carrion Allergies As of Date: 08/25/2024 Noted Allergy Reaction MOXIFLOXACIN 12/21/2003 5 - Intolerance Comments: thought I was having a heart attack w/ Avelox PERCOCET (OXYCODONE-ACETAMINOPHE N)12/02/2006 5 - Intolerance Comments: Drops BP CAPSAICIN 02/09/2015 9 - Itching PRAVACHOL (PRAVASTATIN SODIUM) 06/15/2009 5 - Intolerance Comments: Muscle cramps CEPHALEXIN 07/22/2016 9 - Itching CLAVULANIC ACID 07/22/2016 9 - Itching FLAGYL (METRONIDAZOLE) 07/22/2016 9 - Itching LEVOFLOXACIN 07/22/2016 9 - Itching SULFA (SULFONAMIDE ANTIBIOTICS) 12/21/2003 8 - GI Upset Date Reviewed: 07/14/2024 Reviewed by: Tri Fernandez MA - Fully Assessed Reason for Visit: Patient Question [9197] Prescriptions as of 08/30/2024 - propranolol (INDERAL) 10 mg tablet Take 1 tablet by mouth four times daily. - nortriptyline (PAMELOR) 10 mg capsule Take 1 capsule by mouth two times a day. - tolterodine (DETROL) 2 mg tablet - TRUE METRIX GLUCOSE TEST STRIP test strip USE 1 STRIP TO CHECK BLOOD SUGAR ONCE DAILY*E11.65* - glimepiride (AMARYL) 1 mg tablet Take 1 mg by mouth daily with breakfast. - Acetaminophen-Caffeine (TENSION HEADACHE PAIN RELIEVER) 500-65 mg tab Take 2 tablets by mouth twice daily. 2 tablets in am, 1 tablet after lunch - Vitamin E, dl, acetate, (VITAMIN E) 400 unit capsule Take 400 Units by mouth as needed. - vit B complx-folic ac-C-biotin 1 mg-100 mg- 300 mcg tab Take by mouth. - loratadine-pseudoephedr ine ER (CLARITIN-D 24) 10-240 mg Tb24 Take 1 tablet by mouth once daily. - busPIRone (BUSPAR) 15 mg tablet Take 1 tablet by mouth twice daily. - Cholecalciferol, Vitamin D3, 10,000 unit cap Take by mouth once daily. - levothyroxine (SYNTHROID) 100 mcg tablet Take 1 tablet by mouth daily before breakfast. - VITAMIN B COMPLEX (B COMPLEX-100 ORAL) Take 1 capsule by mouth once daily. 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] 02/26/2015 Bradycardia [R00.1] 02/26/2015 Pulmonary embolus (HCC) [I26.99] 03/02/2015 Dysthymia [F34.1] 07/22/2016 Carpal tunnel syndrome of right wrist [G56.01] 05/30/2020 Encounter Status:Closed by MEGHAN CARRION on 08/30/24 [facility] Inpatient Patient Summaryon 08-23-2024 Inpatient Patient Summary Inpatient Patient Summary [place] [id number] Clinical Summary Person Information Name: RUFINO COLLINS Age: 84 Years : 1940 Sex: Female PCP: MANAV RAJAN DO Marital Status: Race: White Ethnicity: Non- or Language: Chadian Visit Id: Visit Reason: LEFT RENAL PELVIS STONE WITH HYDRONEPHROSIS Speciality: Acuity: Enc Type: Outpatient Med Service: Surgery Arrival: 08/23/2024 09:06:08 Discharge: Dispo Type: Address: [address] [place] [address] [id number] Provider Notes: Diagnosis: Bladder wall thickening; Encounter for removal of ureteral stent; History of kidney stones; Recurrent UTI; Vaginal atrophy Problems Active Incomplete bladder emptying UTI symptoms Leaking of urine Nocturia Macular degeneration Kidney stone Urinary urgency Urge incontinence Diverticulosis Hypothyroidism Hypertension Gastroesophageal reflux Diabetes mellitus Depression Anxiety Smoking Status: Functional Status: Sensory Deficits: History of Falls: Mobility Assistance Prior to Admission: ADLs: Current Level of Assistance for Self-Care/Mobility: Cognitive Status: Allergies sulfa drugs (Unknown) Avelox (Unknown) Peppers (Unknown) Percocet 5/325 (Unknown) Laboratory or Other Results This Visit (last charted value for your 08/23/2024 visit) No Laboratory or Other Results This Visit Measurements: Height: 172 cm Weight: 105 kg Blood Pressure: Not Valued / Not Valued BMI: 35.49 kg/m2 Procedures No Procedures Documented Immunizations No Immunizations Documented This Visit Final Med List: busPIRone By Mouth 2 times a day. cefdinir (cefdinir 300 mg Cap) 1 Capsules By Mouth every 12 hours for 7 Days. Refills: 0. chlorthalidone (chlorthalidone 25 mg Tab) 1 Tablets By Mouth every day. Refills: 6. dicyclomine (dicyclomine 10 mg Cap) doxycycline (doxycycline monohydrate 100 mg oral tablet) 1 Tablets By Mouth 2 times a day for 7 Days. Refills: 0. estradiol topical (Estrace 0.1 mg/g Cream) Apply pea sized amount to urethra/vagina 3x a week for 1 month, then 2x a week afterwards. Refills: 2. fluconazole (fluconazole 150 mg Tab) 1 Tablets By Mouth Once. Refills: 0. levothyroxine (Synthroid) By Mouth every day. multivitamin (B-Complex SR) By Mouth every day. nortriptyline (nortriptyline 10 mg Cap) pantoprazole every day. propranolol Care Team Members: Attending Physician: Jessica Linton MD Consulting Physician: Referring Physician: Jessica Linton MD Follow up: With: Address: When: Jess[place]ordo Linton [address] [place] [address] [phone] Business (1) Comments: Office to schedule follow up in 2 months to review renal US and other urologic issues. Obtain renal US at [facility] in 6 weeks or just prior to appointment Patient Education Information: EU - Cystoscopy with Stent Removal Discharge Instructions (CUSTOM) [facility] Main OR Intraoperative Recor don 08-23-2024 Main OR Intraoperative Record Main OR Intraoperative Record IntraOp Document Type FTURO Summary Primary Physician: Jessica Linton MD Finalized Date/Time: 08/23/24 10:22:45 Pt. Name: DENNISRUFINO D.O.B./Sex: 1940 Female Med Rec #: [id number] Physician: Jessica Linton MD Financial #: [id number] Pt. Type: O Room/Bed: / Admit/Disch: 08/23/24 09:06:08 - Institution: Case Times FTURO Entry 1 Patient Times In Room 08/23/24 10:06:00 Out Room 08/23/24 10:22:00 Procedure Times Start 08/23/24 10:11:00 Stop 08/23/24 10:16:00 Anesthesia Times Last Modified By: Cherrie Dodd RN 08/23/24 10:22:42 Case Attendance FTURO Entry 1 Entry 2 Entry 3 Case Attendee Royer ALMARAZ, Jessica Dodd RN, Marcos Erazo Role Performed Surgeon - Primary Home Visits Nurse - Primary Scrub - Primary Time In 08/23/24 10:06:00 08/23/24 10:06:00 08/23/24 10:06:00 Time Out 08/23/24 10:22:00 08/23/24 10:22:00 08/23/24 10:22:00 Procedure CYSTOSCOPY LOCAL WITH CYSTOSCOPY LOCAL WITH CYSTOSCOPY LOCAL WITH STENT REMOVAL(Left) STENT REMOVAL(Left) STENT REMOVAL(Left) Comments Last Modified By: Cherrie Dodd RN, RN, Leann E Ott RN, Leann E 08/23/24 10:22:43 08/23/24 10:22:43 08/23/24 10:22:43 Surgical Procedures FTURO Entry 1 Procedure Description Procedure CYSTOSCOPY LOCAL WITH Modifiers Left STENT REMOVAL Surgeon Description CYSTOSCOPY, LEFT STENT REMOVAL Primary Procedure Yes Primary Surgeon Jessica Linton MD Start 08/23/24 10:11:00 Stop 08/23/24 10:16:00 Anesthesia Type Local Surgical Service Urology Wound Class 2 - Clean-Contaminated Last Modified By: Cherrie Dodd RN 08/23/24 10:16:02 General Case Data FTURO Pre-Care Text: Classifies surgical wound, implements aseptic technique, initiates traffic control Entry 1 Case Information OR URO 1 FT Case Level None Wound Class 2 - Clean-Contaminated Specialty Urology Preop Diagnosis LEFT RENAL PELVIS STONE Postop Same As Preop Yes WITH HYDRONEPHROSIS Postop Diagnosis LEFT RENAL PELVIS STONE Outcomes Met? Yes WITH HYDRONEPHROSIS Last Modified By: Cherrie Dodd RN 08/23/24 10:09:37 Post-Care Text: The patient is free from signs and symptoms of infection EU IntraOp - FTURO Pre-Care Text: Implements protective measures prior to operative or invasive procedure, confirms identity before the operative or invasive procedure, verifies operative procedure, surgical site, and laterality Entry 1 EU Perioperative Protocols Procedure(s) CYSTOSCOPY LOCAL WITH Patient Identity Birthday, ID Band STENT REMOVAL(Left) Verified (select at Check, Patient least 2): Participation Consents / H and P H&P, Surgery/Procedure Operative Site N/A Verified Consent Marking Verified Surgical Site Yes Laterality Verified Yes Verified Procedure Verified Yes Correct Patient Yes Position Verified Availability Equipment, Medication Time Out Royer ALMARAZ, Jessica Garza, Ju Verified (If Participants Cherrie NORTON, Enrique, Applicable) Marcos Mosley Time Out Complete 08/23/24 10:10:00 Allergies Reviewed? Yes Allergies Reviewed Self/Patient With Body Position Frog Legged Prep Area PERINEUM, VAGINA Prep Agents Hibiclens, Sterile Water Skin. Condition Intact, [place], Warm, & Dry Additional None Specimens Collected Vitals - EU Blood Pressure Pulse Respirations SPO2 EBL 0 I&O - EU Total Intake 0 mL Total Output 0 mL Outcomes Met? Yes Last Modified By: Cherrie Dodd RN 08/23/24 10:12:20 Post-Care Text: The patient is free from signs and symptoms of injury caused by extraneous objects Sign Out FTURO Entry 1 Before Patient Leaves OR Nurse verbally Yes Nurse verbally n/a confirms with the confirms with the team the name of team that the procedure(s) instrument, sponge, recorded and needle counts are correct (or N/A) Nurse verbally n/a Nurse verbally Yes confirms with the confirms with the team how the team whether there specimen is labeled are any equipment (including patient problems to be name), if applicable addressed Sign Out Complete 08/23/24 10:15:00 Last Modified By: Cherrie Dodd RN 08/23/24 10:15:58 Case Comments Finalized By: Cherrie Dodd RN Document Signatures Signed By: Cherrie Dodd RN 08/23/24 10:22 [facility] Main OR Preoperative Recordo n 08-23-2024 Main OR Preoperative Record Main OR Preoperative Record Holding Area Document Type FTURO Summary Primary Physician: Jessica Linton MD Finalized Date/Time: 08/23/24 09:59:52 Pt. Name: RUFINO COLLINS /Sex: 1940 Female Med Rec #: [id number] Physician: Jessica Linton MD Financial #: [id number] Pt. Type: O Room/Bed: / Admit/Disch: 08/23/24 09:06:08 - Institution: Case Times Holding FTURO Pre-Care Text: Verifies consent for planned procedure, identifies individual values and wishes concerning care, includes family members in perioperative teaching Secures patient's records' belongings, and valuables, maintains patient's dignity and privacy, and maintains patient confidentiality Entry 1 In Holding 08/23/24 09:58:00 Outcomes Met? Yes Last Modified By: Shyann Madrigal 08/23/24 09:58:40 Post-Care Text: The patient participates in decisions affecting his or her perioperative plan of care The patient's right to privacy is maintained Surgery Checklist FTURO Entry 1 Patient Birthday, ID Band Procedure History and Physical, Identification: Check, Patient Verification: Surgical Consent, With Participation Patient NPO after Midnight: No Date/Time: 08/23/24 09:58:00 Personal Items: Jewelry Personal Items CLOTHES AND SHOES Comment: Limitations: CANE Complaints of Pain: No Pain Comment: NO PAIN BUT DISCOMFORT Skin Integrity Unable to Visualize Vitals - EU Blood Pressure 147/80 Pulse 82 bpm Respirations 18 br/min SPO2 96 % Additional None Specimens Comment N/A Specimens Collected Residual Amount - 0 RN Reviewed Yes Post Void Last Modified By: Shyann Madrigal 08/23/24 09:59:50 Finalized By: Shyann Madrigal Document Signatures Signed By: Shyann Madrigal 08/23/24 09:59 [facility] Operative Reporton Operative Report Operative Report Patient: RUFINO COLLINS Age: 84 years Sex: Female : 1940 Associated Diagnoses: None Author: Jessica Linton MD Procedure Operative Information Details: Date/ Time: 08/23/2024 10:28:00. Pre-Op Dx: Encounter for removal of ureteral stent ([id number] Z46.6, Discharge, Medical), History of kidney stones ([id number] Z87.442, Discharge, Medical). Post-Op Dx: Same. Anesthesia Type: Local. Procedure: Local Cystoscopy with Stent Removal. Complications: None. Risks/Benefits/Informed Consent: Surgical risks, benefits, details of the procedure have been explained to the patient, Full informed consent has been obtained. Intraoperative Information Prepped: The patient was placed in supine position (Frogleg), The patient was prepped with the Betadine solution (Hibiclens). Anesthesia: 2% Xylocaine Jelly per urethra. Procedure: Cystoscopy and Left Stent Removal, The flexible Cystoscope was passed in retrograde fashion into the bladder without difficulty, The bladder was viewed in entirety and found to be without tumors or stones, Mild inflammation was seen surrounding the orifice with the stent seen protruding from it, The stent was then grasped and removed in its entirety. Specimens Removed: None. Devices Implanted: None. Postoperative Information Discharge: The patient tolerated the procedure well and was subsequently discharged home, Complete periprocedure antibiotics. - Obtain renal ultrasound at [facility] in 6 weeks to ensure no silent obstruction develops. Follow-up in 2 months to review as well as address other urologic issues. See separate clinic note for further details.. [facility] Comment on above: Result Comment: Elec tronically Signed By: Jessica Linton MD\.br\Date and Time Signed: 08/23/24 10:29 EDT Outpatient Surgery Discharge Instructionon 08-23-2024 Outpatient Surgery Discharge Instruction Outpatient Surgery Discharge Instruction [address] [address] Patient Discharge Instructions PERSON INFORMATION Name: RUFINO COLLINS Date of : 1940 Current Date: 08/23/2024 10:23:19 PHYSICIANS Admitting Physician: Jessica Linton MD Comment: Discharge Diagnosis: Bladder wall thickening; Encounter for removal of ureteral stent; History of kidney stones; Recurrent UTI; Vaginal atrophy RUFINO COLLINS has been given the following list of follow-up instructions, prescriptions, and patient education materials: IF UNABLE TO CONTACT YOUR PHYSICIAN AND YOU FEEL IT IS AN EMERGENCY, GO TO THE NEAREST EMERGENCY ROOM OR CALL 911 Follow up: With: Address: When: Jessica Linton [address] [place] [phone] [facility] (1) Comments: Office to schedule follow up in 2 months to review renal US and other urologic issues. Obtain renal US at [facility] in 6 weeks or just prior to appointment Comment: PATIENT EDUCATION INFORMATION Instructions: Cystoscopy with Stent Removal ??? Voiding after the procedure: there may be some pain, burning, urgency, frequency and blood tinged urine following the procedure. These symptoms usually resolve within 2-5 days. Drink the amount of fluid it takes to keep the urine pink to yellow or clear in color. Drinking enough water and fluids will help to ease any discomfort after your procedure. ??? If you are having problems that seem out of the ordinary, please call. ??? If unable to contact your physician and you feel it is an emergency, go to the nearest emergency room or call 911 ??? Diet ??? you may resume your normal diet. ??? Activity ??? you may resume your normal activities ??? Call if you have a fever over 100 degrees. DENNIS Crane ARLENE A, have received the attached patient education materials/instructions and have verbalized understanding: May we do a follow up call? Yes No I was present when discharge instructions were given Patient Signature Date Clinican/Nurse Signature _ Date You may receive a survey from [employer] asking you to rate your care experience. Your feedback is important and will help us understand what we do well and how we can improve the quality of care we provide to you, your loved ones and our community. It???s an honor to serve you. Thank you for choosing [facility] C Urineon 08-18-2024 Bacteria identified Cx Nom (U) Microbiology PROCEDURE: Urine Culture [R1] SOURCE: U CleanCatch BODY SITE: COLLECTED DATE/TIME: 08/16/2024 12:57 EDT RECEIVED DATE/TIME: 08/16/2024 14:09 EDT START DATE/TIME: 08/16/2024 14:09 EDT FREE TEXT SOURCE: Kareem Correa DO, DO, Kareem FINAL REPORTS Final Report [] Verified Date/Time: 08/18/2024 09:43 EDT >100,000 cfu/ml Escherichia coli SUSCEPTIBILITY RESULTS ____ LEGEND: S=Susceptible, N/R=Not Reported, Blank=Data not available, or drug not advisable or tested, I=Intermediate, ESBL=Extended spectrum beta-lactamase, R=Resistant, TFG=Thymidine-dependent strain, NAIMA=Beta-lactamase positive, DIEGO=mcg/m;(mg/L), S*=Predicted susceptible interp, R*=Predicted resistant interp ___ EC Antibiotic DIEGO Dilutn DIEGO Interp Ampicillin >16 R Ampicillin/ 16/8 I Sulbactam Aztreonam <=4 S Cefazolin 4 S Cefepime <=2 S Ceftazidime <=1 S Ceftazidime/ <=8 S Avibactam Ceftriaxone <=1 S Cefuroxime <=4 S Ciprofloxacin <=0.25 S Ertapenem <=0.5 S Gentamicin >8 R Levofloxacin <=0.5 S Meropenem <=1 S Nitrofurantoin <=32 S Piperacillin/ <=8 S Tazobactam Tetracycline <=4 S Tobramycin 4 S Trimethoprim/ >2/38 R Sulfa Performing Locations R1: This test was performed at: [facility], [address] [place] [address], [id number] , [place], Normal [facility] Comment on above: Performed By: #### 2 [id number] ####[facility] [address] [place] [address] BMPon 08-16-2024 Anion gap [Moles/Vol] 13 mmol/L Normal 6-16 [facility] Comment on above: Performed By: #### 2 [id number] #### [facility] [address] [place] [address] Calcium [Mass/Vol] 9.2 mg/dL Normal 8.9-11.1 [facility] Comment on above: Performed By: #### 2 [id number] #### [facility] [address] [place] [address] Chloride [Moles/Vol] 108 mmol/L Normal 101-111 [facility] Comment on above: Performed By: #### 2 [id number] #### [facility] [address] [place] [address] CO2 [Moles/Vol] 22 mmol/L Normal 21-31 [facility] Comment on above: Performed By: #### 2 [id number] #### [facility] [address] [place] [address] Creatinine [Mass/Vol] 0.7 mg/dL Normal 0.5-1.3 [facility] Comment on above: Performed By: #### 2 [id number] #### [facility] [address] [place] [address] Glucose [Mass/Vol] 159 mg/dL Normal 55-199 [facility] Comment on above: Performed By: #### 2 [id number] #### [facility] [address] [place] [address] Potassium [Moles/Vol] 4.0 mmol/L Normal 3.5-5.3 [facility] Comment on above: Performed By: #### 2 [id number] #### [facility] [address] [place] [address] Sodium [Moles/Vol] 139 mmol/L Normal 135-145 [facility] Comment on above: Performed By: #### 2 [id number] #### [facility] [address] [place] [address] Urea nitrogen [Mass/Vol] 23 mg/dL High 5-21 [facility] Comment on above: Performed By: #### 2 [id number] #### [facility] [address] [place] [address] Urea nitrogen/Creatinine [Mass ratio] 33 No Units High 10-20 [facility] Comment on above: Performed By: #### 2 [id number] #### [facility] [address] [place] [address] CBC w/ Auto Diffon 5 Basophils/100 WBC (Bld) 1.4 % Normal 0.0-2.0 [facility] Comment on above: Performed By: #### 2 [id number] #### [facility] [address] [place] [address] Basophils/Leukocytes Auto (Bld) [Pure # fraction] 0.1 E9/L Normal 0.0-0.2 [facility] Comment on above: Performed By: #### 2 [id number] #### [facility] [address] [place] [address] Eosinophils (Bld) [#/Vol] 0.1 E9/L Normal 0.0-0.5 [facility] Comment on above: Performed By: #### 2 [id number] #### [facility] [address] [place] [address] Eosinophils/100 WBC (Bld) 1.5 % Normal 0.0-8.0 [facility] Comment on above: Performed By: #### 2 [id number] #### [facility] [address] [place] [address] Erythrocyte distribution width (RBC) [Ratio] 14.4 % High 10.9-14.2 [facility] Comment on above: Performed By: #### 2 [id number] #### [facility] [address] [place] [address] Hematocrit (Bld) [Volume fraction] 42.7 % Normal 34.0-46.0 [facility] Comment on above: Performed By: #### 2 682105 #### [facility] [address] [place] [address] Hemoglobin (Bld) [Mass/Vol] 14.4 g/dL Normal 12.0-16.0 [facility] Comment on above: Performed By: #### 2 487505 #### [facility] [address] [place] [address] Lymphocytes (Bld) [#/Vol] 2.0 E9/L Normal 1.0-4.0 [facility] Comment on above: Performed By: #### 2 [id number] #### [facility] [address] [place] [address] Lymphocytes/100 WBC (Bld) 20.6 % Normal 14.0-50.0 [facility] Comment on above: Performed By: #### 2 [id number] #### [facility] [address] [place] [address] MCH (RBC) [Entitic mass] 29.1 pg Normal 27.0-34.0 [facility] Comment on above: Performed By: #### 2 [id number] #### [facility] [address] [place] [address] MCHC (RBC) [Mass/Vol] 33.7 g/dL Normal 31.4-36.0 [facility] Comment on above: Performed By: #### 2 [id number] #### [facility] [address] [place] [address] MCV (RBC) [Entitic vol] 86.4 fL Normal 80.0-100.0 [facility] Comment on above: Performed By: #### 2 [id number] #### [facility] [address] [place] [address] Monocytes (Bld) [#/Vol] 1.1 E9/L High 0.2-1.0 [facility] Comment on above: Performed By: #### 2 [id number] #### [facility] [address] [place] [address] Neutrophils (Bld) [#/Vol] 6.4 E9/L Normal 2.0-7.5 [facility] Comment on above: Performed By: #### 2 543905 #### [facility] [address] [place] [address] Neutrophils/100 WBC (Bld) 65.4 % Normal 36.0-75.0 [facility] Comment on above: Performed By: #### 2 [id number] #### [facility] [address] [place] [address] Platelet 223.0 E9/L Normal 150.0-500.0 [facility] Comment on above: Performed By: #### 2 [id number] #### [facility] [address] [place] [address] Platelet mean volume (Bld) [Entitic vol] 9.2 fL Normal 6.4-10.8 [facility] Comment on above: Performed By: #### 2 [id number] #### [facility] [address] [place] [address] RBC (Bld) [#/Vol] 4.9 E12/L Normal 4.3-5.9 [facility] Comment on above: Performed By: #### 2 [id number] #### [facility] [address] [place] [address] WBC corrected for nucl RBC Auto (Bld) [#/Vol] 9.8 E9/L Normal 4.0-11.0 [facility] Comment on above: Performed By: #### 2 [id number] #### [facility] [address] [place] [address] CHEMISTRYOrdered By: SYSTEM SYSTEM on 08-16-2024 Anion gap [Moles/Vol] 13 mmol/L Normal 6 - 16 mEq/L Remisol Chem Calcium [Mass/Vol] 9.2 mg/dL Normal 8.9 - 11. 1 mg/dL [facility] Chloride [Moles/Vol] 108 mmol/L Normal 101 - 1 11 mmol/L [facility] CO2 [Moles/Vol] 22 mmol/L Normal 21 - 31 mmol/L [facility] Creatinine [Mass/Vol] 0.7 mg/dL Normal 0.5 - 1.3 mg/dL Rem[facility] Chem eGFR 86 mL/min/1.73 m2 Normal >=59mL/min / 1.73 m2 [facility] Glucose [Mass/Vol] 159 mg/dL Normal 55 - 199 mg/dL [facility] Potassium [Moles/Vol] 4.0 mmol/L Normal 3.5 - 5.3 mmol/L [facility] Sodium [Moles/Vol] 139 mmol/L Normal 135 - 145 mmol/L [facility] Urea nitrogen [Mass/Vol] 23 mg/dL High 5 - 21 mg/dL [facility] Urea nitrogen/Creatinine [Mass ratio] 33 mg/mg High 10 - 20 [facility] ED Clinical Summaryon 2024 ED Clinical Summary ED Clinical Summary [address] [address] ED Clinical Summary Person Information Name: RUFINO COLLINS Francesca/[place] Age: 84 Years : 1940 Sex: Female Language: Chadian PCP: MANAV RAJAN DO Marital Status: Visit Id: Visit Reason: Medical problem - minor; Flank pain; Fever; FEVER Speciality: Acuity: 3 Enc Type: Emergency Med Service: Emergency Arrival: 08/16/2024 10:25:42 Discharge: 08/16/2024 14:32:05 LOS: 000 04:07 Checkin: 08/16/2024 10:25:42 Checkout: 08/16/2024 14:32:05 Dispo Type: Home (Routine DC) EVENTS: Event Name Event Status Request Date/Time Start Date/Time Complete Date/Time Arrive Complete 08/16/2024 10:25:42 08/16/2024 10:25:42 08/16/2024 10:25:42 Document Home Meds Request 08/16/2024 10:25:42 Triage Complete 08/16/2024 10:25:42 08/16/2024 10:45:02 08/16/2024 10:45:02 Pending Labs Complete 08/16/2024 10:51:48 08/16/2024 13:12:12 Lab Complete 08/16/2024 10:51:48 08/16/2024 11:47:41 Pending Labs Complete 08/16/2024 11:09:59 08/16/2024 11:09:59 08/16/2024 11:47:41 Lab Complete 08/16/2024 11:09:59 08/16/2024 11:09:59 08/16/2024 11:47:41 Pending Labs Complete 08/16/2024 11:30:46 08/16/2024 11:30:46 08/16/2024 11:30:47 Bed Assign Complete 08/16/2024 12:22:39 08/16/2024 12:22:39 08/16/2024 12:22:39 Dr Exam Complete 08/16/2024 12:22:39 08/16/2024 12:23:02 08/16/2024 12:23:02 RN Exam Complete 08/16/2024 12:22:39 08/16/2024 12:39:37 08/16/2024 12:39:37 Registration Complete 08/16/2024 12:23:02 08/16/2024 12:28:26 08/16/2024 12:28:26 Reg Complete Request 08/16/2024 12:28:26 Reg Bed Request Complete 08/16/2024 12:28:26 08/16/2024 12:28:26 08/16/2024 12:28:26 X-Ray Complete 08/16/2024 13:00:17 08/16/2024 13:01:33 08/16/2024 13:14:34 Pending Labs Inlab 08/16/2024 13:12:13 08/16/2024 13:12:13 Lab Inlab 08/16/2024 13:12:13 08/16/2024 13:12:13 Wet Read Complete 08/16/2024 13:14:34 08/16/2024 13:16:50 08/16/2024 13:16:50 Discharge Complete 08/16/2024 14:22:46 08/16/2024 14:33:02 08/16/2024 14:33:02 Transfer Complete 08/16/2024 14:33:02 08/16/2024 14:33:02 08/16/2024 14:33:02 ADDRESS: [address] [place] [phone] PHYS DOC NOTES: MEDICAL INFORMATION: Prescriptions Given: New Medications [id number], [address], [place] [id number], [phone] cefdinir (cefdinir 300 mg Cap) 1 Capsules By Mouth every 12 hours for 7 Days. Refills: 0. doxycycline (doxycycline monohydrate 100 mg oral tablet) 1 Tablets By Mouth 2 times a day for 7 Days. Refills: 0. Medications to Continue with No Changes Other Medications busPIRone By Mouth 2 times a day. chlorthalidone (chlorthalidone 25 mg Tab) 1 Tablets By Mouth every day. Refills: 6. dicyclomine (dicyclomine 10 mg Cap) levothyroxine (Synthroid) By Mouth every day. multivitamin (B-Complex SR) By Mouth every day. nortriptyline (nortriptyline 10 mg Cap) pantoprazole every day. propranolol PATIENT EDUCATION INFORMATION: Instructions: Follow up: With: Address: When: Jessica Linton In 7 days 08/23/2024 DIAGNOSIS: Pneumonia; UTI (urinary tract infection) [facility] ED Note-Physicianon 08-17-19 ED Note-Physician ED Note-Physician Basic Information Time Seen: Kareem Correa DO 08/16/2024 12:23 Chief Complaint Woke up with fever this morning. Went to urology office today to have stent removed. Urologist wanted to come here to get checked for fever. Took tylenol around 0830. Did not get stent removed today. Denies cough, CASE, sore throat. States some L flank pain History of Present Illness 84 female presents with fever. Patient states that she went to the office of her urologist this morning in order to have her stent removed when they sent her to the emergency department because she had a fever. Patient states that a few weeks ago she was diagnosed with a kidney stone and of having a surgery with a stent placement and the stent was supposed to be removed today. Patient did complete a course of amoxicillin about 3 weeks ago but has otherwise not been on any antibiotics. Patient did state that she took her Macrobid this morning as she was instructed to take this the morning of having her stent removed. She reports no other associated symptoms no abdominal pain no nausea vomiting no chest pain difficulty breathing no cough with this. She did take some Tylenol around 830 this morning. She does state that she has been having some urinary frequency and dysuria. No other aggravating or relieving factors no other associated symptoms no other prior treatments or complaints. Family: Reviewed and noncontributory Social: lives at home Review of systems negative unless otherwise specified in the HPI. Physical Exam Vitals & Measurements T: 36.7 ???C(Oral) HR: 98(Peripheral) RR: 16 BP: 119/71 SpO2: 95% HT: 172 cm WT: 100 kg BMI: 33.8 General: The patient appears well and in no apparent distress. Patient is resting comfortably on cart. Skin: Warm, dry, no pallor noted. Head: Normocephalic, atraumatic Neck: No JVD Eye: PERRLA, EOMI ENT: Moist mucus membranes Cardiovascular: Regular rate normal peripheral perfusion Respiratory: No respiratory distress no accessory muscle use no obvious audible wheezing Chest Wall: no deformity Musculoskeletal: normal ROM, no deformity, no swelling GI: Soft no obvious distention. No rebound or rigidity. No guarding. No tenderness. Neurological: A&O moves all extremities equal strength and symmetry Psychiatric: Cooperative and appropriate Medical Decision Making Workup in the ER has been reviewed and noted. Patient is found to have UTI. She did have a cough and coughed up some bloody sputum therefore I did add on an x-ray there is question of atelectasis versus infiltrate in the left lower lobe. Overall workup here is relatively benign otherwise. I discussed the case with Dr. Lauren he recommended I speak with Dr. Linton. I did speak with Dr. Linton who recommended antibiotics and she will see the patient on Friday for anticipation of stent removal at that time. She did recommend that we do a bladder scan this was performed here there was no evidence of retention. Given patient's allergy profile as well as recently completing a course of Augmentin we will start her on Omnicef doxycycline which should cover lungs and urine as well pending culture results. Patient is comfortable being discharged home at this time. Assessment/Plan Pneumonia (J18.9: Pneumonia, unspecified organism) UTI (urinary tract infection) (N39.0: Urinary tract infection, site not specified) Orders: cefdinir, 300 mg = 1 cap(s), Oral, q12hr, X 7 day(s), # 14 cap(s), Refills(s) 0, Pharmacy: [facility]/pharmacy #[id number], 172, cm, 08/16/24 10:45:00 EDT, Height/Length Dosing, 100, kg, 08/16/24 10:45:00 EDT, Weight Dosing doxycycline, 100 mg = 1 tab(s), Oral, BID, X 7 day(s), # 14 tab(s), Refills(s) 0, Pharmacy: [facility]/pharmacy #[id number], 172, cm, 08/16/24 10:45:00 EDT, Height/Length Dosing, 100, kg, 08/16/24 10:45:00 EDT, Weight Dosing Basic Metabolic Panel CBC w/ Auto Diff eGFR Extra Blue Tube Extra SST Tube UA with Cult Rflx Urine Culture XR Chest 2 Views Disposition Plan Discharge Prescription List Prescriptions cefdinir 300 mg Cap, 300 mg= 1 cap(s), Oral, q12hr doxycycline monohydrate 100 mg oral tablet, 100 mg= 1 tab(s), Oral, BID Follow-up With When Contact Information Jessica Linton In 7 days 08/23/2024 EDT Additional Instructions: Problem List/Past Medical History Ongoing Anxiety Depression Diabetes mellitus Diverticulosis Gastroesophageal reflux Hypertension Hypothyroidism Incomplete bladder emptying Kidney stone Leaking of urine Macular degeneration Nocturia Urge incontinence Urinary urgency UTI symptoms Historical No qualifying data Procedure/Surgical History Cystoscopic removal of ureteric stent (10/24/2016), Cystoscopic laser lithotripsy of ureteric calculus (10/17/2016), 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 Normal [facility] Comment on above: Result Comment: Elec tronically Signed By: Kareem Correa DO\.br\Date and Time Signed: 08/16/24 14:23 EDT ED Patient Education Noteon 08-16-2024 ED Patient Education Note ED Patient Education Note Normal [facility] ED Patient Summaryon 025 ED Patient Summary ED Patient Summary [place] [id number] Patient Discharge Instructions Person Information Name: RUFINO COLLINS Age: 84 Years Arrival Date: 08/16/2024 10:25:42 Discharge Diagnosis: Pneumonia; UTI (urinary tract infection) Primary Care Physician: MANAV RAJAN DO Provider Information Primary Provider: Kareem Correa DO Advanced Cold Press Operator:None The exam and treatment you received in the Emergency Department were for an urgent problem and are not intended as complete care. It is important that you follow up with a doctor, nurse practitioner, or physician???s preschool assistant for ongoing care. If your symptoms become worse or you do not improve as expected and you are unable to reach your usual health care provider, you should return to the Emergency Department. We are available 24 hours a day. DEV COLLINSE Marcel has been given the following list of patient education materials, prescriptions and follow-up instructions: Follow-up Instructions: With: Address: When: Jessica Linton In 7 days 08/23/2024 In the event that this physician does not participate in your insurance network, please consult with your insurance company to find a nearby participating provider. Patient Education Materials: A MESSAGE TO ALL PATIENTS REGARDING OPIOIDS PRESCRIPTION OPIOIDS: WHAT YOU NEED TO KNOW Prescription opioids can be used to help relieve oymrlbkz-cv-pwaquh pain and are often prescribed following a surgery or injury, or for certain health conditions. These medications can be an important part of the treatment but also come with serious risks. It is important to work with your healthcare provider to make sure you are getting the safest, most effective care. WHAT ARE THE RISKS AND SIDE EFFECTS OF OPIOID USE? Prescription opioids carry serious risks of addiction and overdose, especially with prolonged use. An opioid overdose, often marked by slowed breathing, can cause sudden . The use of prescription opioids can have a number of side effects as well, even when taken as directed: ??? Tolerance???meaning you might need to take more of the medication for the same pain relief ??? Physical dependence???meaning you have symptoms of withdrawal when a medication is stopped ??? Increased sensitivity to pain ??? Constipation ??? Nausea, vomiting, and dry mouth ??? Sleepiness and dizziness ??? Confusion ??? Depression ??? Low levels of testosterone that can result in lower sex drive, energy, and strength ??? Itching and sweating RISKS ARE GREATER WITH: ??? History of drug misuse, substance use disorder, or overdose ??? Mental health conditions (such as depression or anxiety) ??? Sleep apnea ??? Older age (65 years and older) ??? Avoid alcohol while taking prescription opioids. Also, unless specifically advised by your health care provider, medications to avoid include: ??? Benzodiazepines (such as Xanax or Valium) ??? Muscle relaxants (such as Soma or Flexeril) ??? Hypnotics (such as Ambien or Lunesta) ??? Other prescription opioids KNOW YOUR OPTIONS Talk to your health care provider about ways to manage your pain that don???t involve prescription opioids. Some of these options may actually work better and have fewer risks and side effects. Options may include: ??? Pain relievers such as acetaminophen, ibuprofen, and naproxen ??? Some medication that are also used for depression or seizures ??? Physical therapy and exercise ??? Cognitive behavioral therapy, a psychological, goal-directed approach, in which patients learn how to modify physical, behavioral, and emotional triggers of pain and stress. IF YOU ARE PRESCRIBED OPIOIDS FOR PAIN: ??? Never take opioids in greater amounts or more often than prescribed. ??? Follow up with your primary health care provider. o Work together to create a plan on how to manage your pain. o Talk about ways to help manage your pain that don???t involve prescription opioids. o Talk about any and all concerns and side effects. ??? Help prevent misuse and abuse o Never sell or share prescription opioids. o Never use another person???s prescription opioids. ??? Store prescription opioids in a secure place and out of reach of others (this may include visitors, children, friends, and family). ??? Safely dispose of unused prescription opioids: Find your community drug take-back program or your pharmacy mail-back program, or flush them down the toilet, following guidance from the Food and Drug Administration (www.fda.gov/Drugs/Reso urcesForYou). ??? Visit www.cdc.gov/drugoverdos e to learn about the risks of opioids abuse and overdose. ??? If you believe you may be struggling with addiction, tell your health child care teacher and ask for guidance or call [facility]???S National Helpline at 2-559-207-HELP. v Source: US Dep (more content not included)... Normal [facility] Extra Blueon 08-16-2024 Tube Collected Plasma Yes Invalid Interpretation Code [facility] Comment on above: Performed By: #### 1 [id number] #### [facility] [address] [place] [address] HEMATOLOGYOrdered By: SYSTEM SYSTEM on 08-16-2024 Basophils/100 WBC (Bld) 1.4 % Normal 0.0 - 2.0 % Remisol Heme Basophils/Leukocytes Auto (Bld) [Pure # fraction] 0.1 E9/L Normal 0.0 - 0.2 E9/L Remisol Heme Eosinophils (Bld) [#/Vol] 0.1 E9/L Normal 0.0 - 0.5 E9/L Remisol Heme Eosinophils/100 WBC (Bld) 1.5 % Normal 0.0 - 8.0 % Remisol Heme Erythrocyte distribution width (RBC) [Ratio] 14.4 % High 10.9 - 14.2 % Remisol Heme Hematocrit (Bld) [Volume fraction] 42.7 % Normal 34.0 - 46.0 % Remisol Heme Hemoglobin (Bld) [Mass/Vol] 14.4 g/dL Normal 12.0 - 16.0 gm/dL Remisol Heme Lymphocytes (Bld) [#/Vol] 2.0 E9/L Normal 1.0 - 4.0 E9/L Remisol Heme Lymphocytes/100 WBC (Bld) 20.6 % Normal 14.0 - 50.0 % Remisol Heme MCH (RBC) [Entitic mass] 29.1 pg Normal 27.0 - 34.0 pg Remisol Heme MCHC (RBC) [Mass/Vol] 33.7 g/dL Normal 31.4 - 36.0 gm/dL Remisol Heme MCV (RBC) [Entitic vol] 86.4 fL Normal 80.0 - 100.0 fL Remisol Heme Monocytes (Bld) [#/Vol] 1.1 E9/L High 0.2 - 1.0 E9/L Remisol Heme Monocytes/100 WBC (Bld) 11.1 % Normal 4.0 - 14.0 % Remisol Heme Neutrophils (Bld) [#/Vol] 6.4 E9/L Normal 2.0 - 7.5 E9/L Remisol Heme Neutrophils/100 WBC (Bld) 65.4 % Normal 36.0 - 75.0 % Remisol Heme Platelet 223.0 E9/L Normal 150.0 - 500.0 E9/L Remisol Heme Platelet mean volume (Bld) [Entitic vol] 9.2 fL Normal 6.4 - 10.8 fL Remisol Heme RBC (Bld) [#/Vol] 4.9 E12/L Normal 4.3 - 5.9 E12/L Remisol Heme WBC corrected for nucl RBC Auto (Bld) [#/Vol] 9.8 E9/L Normal 4.0 - 11.0 E9/L Remisol Heme Main OR Preoperative Recordo n 08-16-2024 Main OR Preoperative Record Main OR Preoperative Record Holding Area Document Type [facility] Summary Primary Physician: Jessica Linton MD Finalized Date/Time: 08/16/24 10:16:21 Pt. Name: RUFINO COLLINS /Sex: 1940 Female Med Rec #: [id number] Physician: Jessica Linton MD Financial #: [id number] Pt. Type: O Room/Bed: / Admit/Disch: 08/16/24 09:36:29 - Institution: Case Times Holding [facility] Pre-Care Text: Verifies consent for planned procedure, identifies individual values and wishes concerning care, includes family members in perioperative teaching Secures patient's records' belongings, and valuables, maintains patient's dignity and privacy, and maintains patient confidentiality Entry 1 In Holding 08/16/24 10:02:00 Outcomes Met? Yes Last Modified By: Shyann Madrigal 08/16/24 10:02:46 Post-Care Text: The patient participates in decisions affecting his or her perioperative plan of care The patient's right to privacy is maintained General Comments: PROCEDURE CANCELLED DUE TO PATIENT HAVING FEVER. TOLD PATIENT TO GO TO ER TODAY TO GET CHECKED OUT.ERROL CLAY. Surgery Checklist [facility] Entry 1 Patient Birthday, ID Band Procedure History and Physical, Identification: Check, Patient Verification: Surgical Consent, With Participation Patient NPO after Midnight: n/a Date/Time: 08/16/24 10:02:00 Personal Items CLOTHES AND SHOES Limitations: CANE Comment: Complaints of Pain: No Pain Comment: NO PAIN Skin Integrity Unable to Visualize Vitals - EU Blood Pressure 144/79 Pulse 95 bpm Respirations 18 br/min SPO2 96 % Additional None Specimens Comment N/A Specimens Collected Residual Amount - 0 RN Reviewed Yes Post Void Last Modified By: Shyann Madrigal 08/16/24 10:08:00 Finalized By: Shyann Madrigal Document Signatures Signed By: Shyann Madrigal 08/16/24 10:16 Normal [facility] UA with Cult Rflxon 08-17-19 25 Bacteria Auto Ql (U) 3+ /HPF Abnormal Trace Fish er [facility] Comment on above: Performed By: #### 4 [id number] #### [facility] [address] [place] [address] Bilirubin Ql (U) Negative Normal Negative [facility] Comment on above: Performed By: #### 4 [id number] #### [facility] [address] [place] [address] Clarity (U) Ex.Turbid Abnormal Clear [facility] Comment on above: Performed By: #### 4 [id number] #### [facility] [address] [place] [address] Color (U) Yellow Normal Yellow [facility] Comment on above: Result Comment: Micr oscopic readings are only performed on those samples that meet specific criteria set forth by [facility]. Performed By: #### 4 [id number] #### [facility] [address] [place] [address] Epithelial cells.squamous Auto (Urine sed) [#/Area] 3-4 Invalid Interpretation Code [facility] Comment on above: Performed By: #### 4 [id number] #### [facility] [address] [place] [address] Glucose Ql (U) Negative Normal Negative [facility] Comment on above: Performed By: #### 4 [id number] #### [facility] [address] [place] [address] Hemoglobin Auto test strip (U) [Mass/Vol] 2+ mg/dL Abnormal Negative [facility] Comment on above: Performed By: #### 4 [id number] #### [facility] [address] [place] [address] Ketones Auto test strip Ql (U) Negative Normal Negative [facility] Comment on above: Performed By: #### 4 [id number] #### [facility] [address] [place] [address] Leukocyte esterase Auto test strip Ql (U) 500 Ricki/uL Abnormal Negative [facility] Comment on above: Performed By: #### 4 [id number] #### [facility] [address] [place] [address] Mucus Auto Ql (U) 2+ CD:[id number] Abnormal Negative F [facility] Comment on above: Performed By: #### 4 [id number] #### [facility] [address] [place] [address] Nitrite Auto test strip Ql (U) 2+ mg/dL Abnormal Negative [facility] Comment on above: Performed By: #### 4 [id number] #### [facility] [address] [place] [address] pH (U) 5.5 [pH] Invalid Interpretation Code 5.0-9.0 [facility] Comment on above: Performed By: #### 4 [id number] #### [facility] [address] [place] [address] Protein Ql (U) 2+ mg/dL Abnormal Negative [facility] Comment on above: Performed By: #### 4 [id number] #### [facility] [address] [place] [address] RBC Ql (U) >75 Abnormal 0-3 [facility] Comment on above: Performed By: #### 4 [id number] #### [facility] [address] [place] [address] Specific gravity (U) [Rel density] 1.021 Invalid Interpretation Code 1.005-1.030 [facility] Comment on above: Performed By: #### 4 [id number] #### [facility] [address] [place] [address] Urobilinogen (U) [Mass/Vol] Negative Normal Negative [facility] Comment on above: Performed By: #### 4 [id number] #### [facility] [address] [place] [address] WBC Auto (Urine sed) [#/Area] >75 Abnormal 0-5 [facility] Comment on above: Performed By: #### 4 [id number] #### [facility] [address] [place] [address] Type of Urine collection method Clean Catch Normal [facility] Comment on above: Performed By: #### 4 [id number] #### [facility] [address] [place] [address] URINALYSISOrdered By: SYSTEM SYSTEM on 08-16-2024 Bacteria Auto Ql (U) 3+ /HPF Invalid Interpretation Code Trace/HPF FT UA Auto SS Bilirubin Ql (U) Negative Normal Negativemg/ dL [facility] UA Auto SS Clarity (U) Ex.Turbid *ABN* (08/16/24 12:57 PM) Invalid Interpretation Code Clear [facility] UA Auto SS Color (U) Yellow 1 (08/16/24 12:57 PM) Normal Yellow [facility] UA Auto SS Comment on above: Interpretive Data: M icroscopic readings are only performed on those samples that meet specific criteria set forth by [facility]. Epithelial cells.squamous Auto (Urine sed) [#/Area] 3-4 graded/HPF Invalid Interpretation Code [facility] UA Auto SS Glucose Ql (U) Negative Normal Negativemg/ dL [facility] UA Auto SS Hemoglobin Auto test strip (U) [Mass/Vol] 2+ mg/dL Invalid Interpretation Code Negativemg/ dL [facility] UA Auto SS Ketones Auto test strip Ql (U) Negative Normal Negativemg/ dL [facility] UA Auto SS Leukocyte esterase Auto test strip Ql (U) 500 Ricki/uL Ricki/uL Invalid Interpretation Code NegativeLeu /uL [facility] UA Auto SS Mucus Auto Ql (U) 2+ graded/LPF Invalid Interpretation Code Negativegra ded/LPF [facility] UA Auto SS Nitrite Auto test strip Ql (U) 2+ mg/dL Invalid Interpretation Code Negativemg/ dL [facility] UA Auto SS pH (U) 5.5 *NA* (08/16/24 12:57 PM) Invalid Interpretation Code 5.0 - 9.0 [facility] UA Auto SS Protein Ql (U) 2+ mg/dL Invalid Interpretation Code Negativemg/ dL [facility] UA Auto SS RBC Ql (U) >75 graded/HPF Invalid Interpretation Code 0-3graded/H PF [facility] UA Auto SS Specific gravity (U) [Rel density] 1.021 *NA* (08/16/24 12:57 PM) Invalid Interpretation Code 1.005 - 1.030 [facility] UA Auto SS Urobilinogen (U) [Mass/Vol] Negative Normal Negativemg/ dL [facility] UA Auto SS WBC Auto (Urine sed) [#/Area] >75 graded/HPF Invalid Interpretation Code 0-5graded/H PF [facility] UA Auto SS URINALYSISOrdered By: Brie Medley on 08-16-2024 UA Spec Desc Clean Catch (08/16/24 12:57 PM) Normal [facility] UA Auto SS XR Chest 2 Viewson XR Chest 2 Views Exam Date/Time: 08/16/2024 13:14 EDT Reason for Exam: Difficulty breathing Report IMPRESSION: ATELECTASIS VERSUS MINIMAL INFILTRATION LEFT LUNG BASE LATERALLY. CLINICAL HISTORY: Difficulty breathing. Cough. COMMENT: There is a cardiac electrical device on the left, with intracardiac electrodes. The heart is normal in size. The mediastinum is unremarkable. There is hazy increased density at the left lung base laterally, that may be due to atelectasis or minimal infiltration. The lungs otherwise appear clear. No consolidated airspace opacification nor pleural effusion is evident. Ordering Provider: Kareem Correa FINAL REPORT Dictated: 08/16/2024 1:35 pm Kamari Fuller M.D. Signed (Electronic Signature): 08/16/2024 1:35 pm Signed by: Kamari Fuller M.D. Transcribed by: ROBIN Technologist: PDADYS Normal [facility] eGFRon 08-16-2024 eGFR 86 mL/min/1.73 m2 Normal >=59 [facility] Comment on above: Performed By: #### 1 [id number] #### [facility] [address] [place] [address] [place] urethrocystogram retroon 08-04-2024 [place] urethrocystogram retro [facility] Main [address] [address] Fluoroscopy Report Signed Patient: Rufino Collins MR#: [id number] : 1940 Acct:[id number] Age/Sex: 84 / F ADM Date: 08/03/24 Loc: [place] Room: Type: [facility] Attending Dr: Jessica Linton MD Copies to: Jessica Linton MD Ordering Provider: Jessica Linton MD Date of Service: 08/03/24 FL/FL urethrocystogram retro: CYSTO LEFT RETROGRADE UROGRAM - 10 images CLINICAL DATA: Left ureteroscopy with lithotripsy, stone removal and stent exchange. COMPARISON: CT 07/21/2024 and retrograde urogram 07/22/2024 Multiple spot films of the abdomen were obtained. The first image shows a wire passed up to the left kidney. There is a large stone in the vicinity ureterovesical junction correlating with the UPJ Stone seen previously. On subsequent images, there is injection of contrast up to the kidney. The collecting system is not fully opacified for evaluation. The stone appears to be in the renal pelvis on those images. A ureteroscope is advanced up to the kidney. It is reported the patient underwent lithotripsy and stone retrieval. The final images show a new internal ureteral stent. Cumulative Air Kerma in mGy: 10 mGy Impression dictated by: Alla Putnam M.D.08/04/2024 9:10 AM Dictation Location: [place] [address] Transcribed By: [facility] 08/04/24 0910 Dictated By: Alla Putnam MD 08/04/24 0906 Signed By: 08/04/24 0910 Normal [facility] Glucose Glucometer (BldC) [M ass/Vol]Ordered By: Jessica Linton on 08-03-2024 Glucose [Mass/Vol] Capillary blood gluc ose measurement by glucometer (mass/volume) [facility] Comment on above: Random Glucose Refer ence Range is dependent on time and content of last meal. Glucose of more than 200 mg/dL in a nonstressed, ambulatory subject supports the diagnosis of Diabetes Mellitus. Glucose Poct Glucometerson 0 08-03-2024 Glucose [Mass/Vol] 126 mg/dL Normal [facility] Comment on above: Result Comment: [place] Glucose Reference Range is dependent on time and content of last meal. Glucose of more than 200 mg/dL in a nonstressed, ambulatory subject supports the diagnosis of Diabetes Mellitus. PERFORMED BY: [address] [place] [address] PATHOLOGIST SIGNAL WORKER HELPER CESAR GRIJALVA M.D. Performed By: #### C ROSE MOELLER, CMP #### [address] [address] [facility] 08-03-2024 L --- Specimen: [id number] Received: 08/03/24 Status: ROSALBA Jcjose Num: [id number] Spec Type: Surgical Subm Dr: Jessica Linton MD Tissues: A Urinary Bladder - biopsy (L BLADDER WALL) Procedures: Serenity SHARPE/Jena L4 Age/ Patient Sex Location Account Attending Physician Rufino Collins 84/F [place] [id number] Jessica Linton MD SPEC NUM: [id number] RECD: 08/03/24 STATUS: ROSALBA JCJose NUM: [id number] KASHIF: 08/03/[address]: Jessica Linton MD ENTERED: 08/03/24 [facility] DR: SPEC TYPE: Surgical DEPT: S ENTERED BY: [id number] RECV BY: [id number] ORDERED: HE/2, Gross/Micro L4 ORDERED: HE/2, Gross/Micro L4 Pathological Diagnosis Bladder, left bladder wall, biopsy: - Minute fragments of granulation tissue with acute and chronic inflammation. - Scant urothelial epithelium with reactive changes. Clinical Information Left stone with hydronephrosis Gross Description Received in formalin labeled with the patients name, date of , and Left bladder wall are two pale kelley, focally erythematous, feathery, 0.1 and 0.2 cm in greatest dimension tissue bits. The specimen is entirely submitted in a single cassette. (1, ns, [id number]) Microscopic Description Microscopic examination is performed. CPT Codes 07697 Specimen: [id number] Received: 08/03/24 Status: ROSALBA Bradley Num: [id number] Spec Type: Surgical Subm Dr: Jessica Linton MD Tissues: A Urinary Bladder - biopsy (L BLADDER WALL) Procedures: HE/2, Gross/Micro L4 Patient: Rufino Collins [id number] (Continued) Signed (signature on file) Nasim Emanuel MD 08/04/24 1201 Normal [facility] Basic Metabolic Panelon 07-10 Anion gap [Moles/Vol] 11.5 mmol/L Normal 6.0-15.0 [facility] Comment on above: Performed By: #### B MP, CBC #### [facility] [address] [place] [address] [place] Calcium [Mass/Vol] 8.5 mg/dL Low 8.6-10.3 [facility] Comment on above: Performed By: #### B MP, CBC #### [facility] [address] [place] [id number] [place] Chloride [Moles/Vol] 106 mmol/L Normal 98-107 [facility] Comment on above: Performed By: #### B MP, CBC #### [facility] [address] [place] [id number] [place] CO2 [Moles/Vol] 23.9 mmol/L Normal 21.0-31.0 [facility] Comment on above: Performed By: #### B MP, CBC #### [address] Creatinine [Mass/Vol] 0.91 mg/dL Normal 0.60-1.20 [facility] Comment on above: Performed By: #### B MP, CBC #### [place] [address] [place] Creatinine Clr Calc Pharmacy 60.24 Normal [facility] Comment on above: Result Comment: PERF ORMED BY: [place] [address] PATHOLOGIST SIGNAL WORKER HELPER CESAR GRIJALVA M.D. Performed By: #### B MP, CBC #### [place] [address] [place] GFR/1.73 sq M.predicted MDRD (S/P/Bld) [Vol rate/Area] mL/min/{1.73_m2} Normal [facility] Comment on above: Performed By: #### B MP, CBC #### [place] [address] [place] Glucose [Mass/Vol] 178 mg/dL High 70-100 [facility] Comment on above: Result Comment: [place] Glucose Reference Range is dependent on time and content of last meal. Glucose of more than 200 mg/dL in a nonstressed, ambulatory subject supports the diagnosis of Diabetes Mellitus. ADA recommended reference range Performed By: #### B MP, CBC #### [place] [address] [place] Potassium [Moles/Vol] 4.4 mmol/L Normal 3.5-5.1 [facility] Comment on above: Performed By: #### B MP, CBC #### [place] [address] [place] Sodium [Moles/Vol] 137 mmol/L Normal 136-145 [facility] Comment on above: Performed By: #### B MP, CBC #### [place] [address] [place] Urea nitrogen [Mass/Vol] 27 mg/dL High 7-25 [facility] Comment on above: Performed By: #### B MP, CBC #### [facility] [address] [place] [address] [place] Basophils Auto (Bld) [#/Vol] Ordered By: Gagan Wylie on 07-23-2024 Basophils (Bld) [#/Vol] Automated basophil count 0.0-0.2 [facility] Basophils/100 WBC Auto (Bld) Ordered By: Gagan Wylie on 07-23-2024 Basophils/100 WBC (Bld) Automated basophil % . [facility] Calcium [Mass/volume] in Ser um or PlasmaOrdered By: Gaganamber Wylie on 07-23-2024 Calcium [Mass/Vol] Calcium [Mass/volume ] in Serum or Plasma Low 8.6-10.3 [facility] Carbon dioxide, total [Moles /volume] in Serum or PlasmaOrdered By: Gagan Wylie on 07-23-2024 CO2 [Moles/Vol] Carbon dioxide, tota l [Moles/volume] in Serum or Plasma 21.0-31.0 [facility] Chloride [Moles/volume] in S katt or PlasmaOrdered By: Gagan Wylie on 07-23-2024 Chloride [Moles/Vol] Chloride [Moles/vol ume] in Serum or Plasma 98-107 [facility] Complete Blood Count Auto Di ffon 07-23-2024 Basophils (Bld) [#/Vol] 0.0 10*3/uL Normal 0.0-0.2 [facility] Comment on above: Result Comment: PERF ORMED BY: [place] [address] PATHOLOGIST SIGNAL WORKER HELPER CESAR GRIJALVA M.D. Performed By: #### B MP, CBC #### [address] Basophils/100 WBC (Bld) 0.3 % Normal . [facility] Comment on above: Performed By: #### B MP, CBC #### [facility] [address] [place] [address] [place] Eosinophils (Bld) [#/Vol] 0.0 10*3/uL Normal 0.0-0.45 [facility] Comment on above: Performed By: #### B MP, CBC #### [address] Eosinophils/100 WBC (Bld) 0.0 % Normal . [facility] Comment on above: Performed By: #### B MP, CBC #### [address] Erythrocyte distribution width (RBC) [Ratio] 13.5 % Normal 11.9-15.3 [facility] Comment on above: Performed By: #### B MP, CBC #### [address] Hematocrit (Bld) [Volume fraction] 36.9 % Normal 34.0-46.4 [facility] Comment on above: Performed By: #### B MP, CBC #### [address] Hemoglobin (Bld) [Mass/Vol] 12.3 g/dL Normal 11.8-15.4 [facility] Comment on above: Performed By: #### B MP, CBC #### [address] Lymphocytes (Bld) [#/Vol] 2.6 10*3/uL Normal 1.00-4.8 [facility] Comment on above: Performed By: #### B MP, CBC #### [address] Lymphocytes/100 WBC (Bld) 22.2 % Normal . [facility] Comment on above: Performed By: #### B MP, CBC #### [address] MCH (RBC) [Entitic mass] 28.7 pg Normal 24.7-34.3 [facility] Comment on above: Performed By: #### B MP, CBC #### [address] MCV (RBC) [Entitic vol] 86.3 fL Normal 80-100 [facility] Comment on above: Performed By: #### B MP, CBC #### [address] Mean Corpuscular HGB Conc 33.2 g/dL Normal 32.0-35.0 [facility] Comment on above: Performed By: #### B MP, CBC #### [address] Monocytes (Bld) [#/Vol] 0.8 10*3/uL Normal 0.0-0.8 [facility] Comment on above: Performed By: #### B MP, CBC #### [address] Monocytes/100 WBC (Bld) 7.2 % Normal . [facility] Comment on above: Performed By: #### B MP, CBC #### [address] Neutrophils (Bld) [#/Vol] 8.1 10*3/uL High 1.8-7.7 [facility] Comment on above: Performed By: #### B MP, CBC #### [address] Neutrophils/100 WBC (Bld) 70.3 % Normal . [facility] Comment on above: Performed By: #### B MP, CBC #### [address] NRBC% 0.0 /100{WBC} Normal 0-0.5 [facility] Comment on above: Performed By: #### B MP, CBC #### [address] Platelet mean volume (Bld) [Entitic vol] 8.9 fL Normal 6.3-10.[address] [facility] Comment on above: Performed By: #### B MP, CBC #### [address] Platelets (Bld) [#/Vol] 301 10*3/uL Normal 150-450 [facility] Comment on above: Performed By: #### B MP, CBC #### [facility] [address] RBC (Bld) [#/Vol] 4.28 10*6/uL Normal 3.60-5.00 [facility] Comment on above: Performed By: #### B MP, CBC #### [facility] [address] WBC (Bld) [#/Vol] 11.5 10*3/uL Normal 3.8-11.6 [facility] Comment on above: Performed By: #### B MP, CBC #### [facility] [address] Creatinine [Mass/volume] in Serum or PlasmaOrdered By: Gagan Wylie on 07-23-2024 Creatinine [Mass/Vol] Creatinine [Mass/volume] in Serum or Plasma 0.60-1.20 [facility] Eosinophils Auto (Bld) [#/Vo l]Ordered By: Gaganamber Wylie on 07-23-2024 Eosinophils (Bld) [#/Vol] Automated eosinophil count 0.0-0.45 [facility] Eosinophils/100 WBC Auto (Bl d)Ordered By: Gaganamber Wylie on 07-23-2024 Eosinophils/100 WBC (Bld) Automated eosinophil % . [facility] Erythrocyte distribution wid th Auto (RBC) [Ratio]Ordered By: Gagan Wylie on 07-23-2024 Erythrocyte distribution width (RBC) [Ratio] Erythrocyte distribution width [Ratio] by Automated count 11.9-15.3 [facility] Glucose [Mass/volume] in Ser um or PlasmaOrdered By: Gagan Wylie on 07-23-2024 Glucose [Mass/Vol] Glucose [Mass/volume ] in Serum or Plasma High 70-100 [facility] Comment on above: ADA recommended refe rence rangeRandom Glucose Reference Range is dependent on time and content of last meal. Glucose of more than 200 mg/dL in a nonstressed, ambulatory subject supports the diagnosis of Diabetes Mellitus. Hematocrit Auto (Bld) [Volum e fraction]Ordered By: Gagan Wylie on 07-23-2024 Hematocrit (Bld) [Volume fraction] Hematocrit [Volume Fraction] of Blood by Automated count 34.0-46.4 [facility] Hemoglobin [Mass/volume] in BloodOrdered By: Gagan Wylie on 07-23-2024 Hemoglobin (Bld) [Mass/Vol] Hemoglobin [Mass/volume] in Blood 11.8-15.4 [facility] Leukocytes [#/volume] correc christo for nucleated erythrocytes in Blood by Automated counOrdered By: Gagan Wylie on 07-23-2024 WBC corrected for nucl RBC Auto (Bld) [#/Vol] Leukocytes [#/volume] corrected for nucleated erythrocytes in Blood by Automated coun 3.8-11.6 [facility] Lymphocytes Auto (Bld) [#/Vo l]Ordered By: Gagan Wylie on 07-23-2024 Lymphocytes (Bld) [#/Vol] Lymphocytes [#/volume] in Blood by Automated count 1.00-4.8 [facility] Lymphocytes/100 WBC Auto (Bl d)Ordered By: Gagan Wylie on 07-23-2024 Lymphocytes/100 WBC (Bld) Lymphocytes/100 leukocytes in Blood by Automated count . [facility] MCH Auto (RBC) [Entitic mass ]Ordered By: Gagan Wylie on 07-23-2024 MCH (RBC) [Entitic mass] MCH [Entitic mass] by Automated count 24.7-34.3 [facility] MCHC Auto (RBC) [Mass/Vol]Or dered By: Gagan Wylie on 07-23-2024 MCHC (RBC) [Mass/Vol] MCHC [Mass/volume] by Automated count 32.0-35.0 [facility] MCV Auto (RBC) [Entitic vol] Ordered By: Gagan Wylie on 07-23-2024 MCV (RBC) [Entitic vol] MCV [Entitic volume] by Automated count 80-100 [facility] Monocytes Auto (Bld) [#/Vol] Ordered By: Gagan Wylie on 07-23-2024 Monocytes (Bld) [#/Vol] Automated blood monocyte count 0.0-0.8 [facility] Monocytes/100 WBC Auto (Bld) Ordered By: Gagan Wylie on 07-23-2024 Monocytes/100 WBC (Bld) Automated monocyte % . [facility] Neutrophils Auto (Bld) [#/Vo l]Ordered By: Gagan Wylie on 07-23-2024 Neutrophils (Bld) [#/Vol] Neutrophils [#/volume] in Blood by Automated count High 1.8-7.7 [facility] Neutrophils/100 WBC Auto (Bl d)Ordered By: Gagan Wylie on 07-23-2024 Neutrophils/100 WBC (Bld) Automated neutrophil % . [facility] No Panel InformationOrdered By: Gagan Wylie on 07-23-2024 Estimated GFR (CKD-EPI) > 60.0 mL/Min [facility] Creatinine Clearance (Chem 60.24 [facility] Nucleated erythrocytes [Pres ence] in Blood by Automated countOrdered By: Gagan Wylie on 07-23-2024 Nucleated RBC Auto Ql (Bld) Nucleated erythrocytes [Presence] in Blood by Automated count 0-0.5 [facility] Platelet mean volume Auto (B ld) [Entitic vol]Ordered By: Gagan Wylie on 07-23-2024 Platelet mean volume (Bld) [Entitic vol] Platelet mean volume [Entitic volume] in Blood by Automated count 6.3-10.7 [facility] Platelets Auto (Bld) [#/Vol] Ordered By: Gagan Wylie on 07-23-2024 Platelets (Bld) [#/Vol] Platelets [#/volume] in Blood by Automated count 150-450 [facility] Potassium [Moles/volume] in Serum or PlasmaOrdered By: Gagan Wylie on 07-23-2024 Potassium [Moles/Vol] Potassium [Moles/volume] in Serum or Plasma 3.5-5.1 [facility] RBC Auto (Bld) [#/Vol]Ordere d By: Gagan yWlie on 07-23-2024 RBC (Bld) [#/Vol] Erythrocytes [#/volu me] in Blood by Automated count 3.60-5.00 [facility] Serum or plasma anion gap de terminationOrdered By: Gagan Wylie on 07-23-2024 Anion gap [Moles/Vol] Serum or plasma an ion gap determination 6.0-15.0 [facility] Sodium [Moles/volume] in Ser um or PlasmaOrdered By: Gagan Wylie on 07-23-2024 Sodium [Moles/Vol] Sodium [Moles/volume ] in Serum or Plasma 136-145 [facility] Urea nitrogen [Mass/volume] in Serum or PlasmaOrdered By: Gagan Wylie on 07-23-2024 Urea nitrogen [Mass/Vol] Urea nitrogen [Mass/volume] in Serum or Plasma High 7-25 [facility] Urine Cultureon 07-23-2024 Bacteria identified Cx Nom (U) No Growth 2 Days PERFORMED BY: [place] [address] PATHOLOGIST SIGNAL WORKER HELPER CESAR GRIJALVA M.D. Normal [facility] Comment on above: Performed By: #### C BC, LIPASE, CMP #### [address] Urine cultureOrdered By: Zbigniew Wylie on 07-23-2024 Bacteria identified Cx Nom (U) Urine culture [facility] WBC Auto (Bld) [#/Vol]Ordere d By: Gagan Wylie on 07-23-2024 WBC (Bld) [#/Vol] Leukocytes [#/volume ] in Blood by Automated count 3.8-11.6 [facility] Basic Metabolic Panelon 07-10 Anion gap [Moles/Vol] 11.8 mmol/L Normal 6.0-15.0 [facility] Comment on above: Performed By: #### C BC, LIPASE, CMP #### [address] Calcium [Mass/Vol] 8.8 mg/dL Normal 8.6-10.3 [facility] Comment on above: Performed By: #### C BC, LIPASE, CMP #### [facility] [address] Chloride [Moles/Vol] 107 mmol/L Normal 98-107 [facility] Comment on above: Performed By: #### C BC, LIPASE, CMP #### [facility] [address] CO2 [Moles/Vol] 22.2 mmol/L Normal 21.0-31.0 [facility] Comment on above: Performed By: #### C BC, LIPASE, CMP #### [facility] [address] Creatinine [Mass/Vol] 0.93 mg/dL Normal 0.60-1.20 [facility] Comment on above: Performed By: #### C BC, LIPASE, CMP #### [facility] [address] Creatinine Clr Calc Pharmacy 58.92 Normal [facility] Comment on above: Result Comment: PERF ORMED BY: [place] [address] PATHOLOGIST SIGNAL WORKER HELPER CESAR GRIJALVA M.D. Performed By: #### C BC, LIPASE, CMP #### [facility] [address] GFR/1.73 sq M.predicted MDRD (S/P/Bld) [Vol rate/Area] mL/min/{1.73_m2} Normal [facility] Comment on above: Performed By: #### C BC, LIPASE, CMP #### [facility] [address] Glucose [Mass/Vol] 157 mg/dL High 70-100 [facility] Comment on above: Result Comment: [place] om Glucose Reference Range is dependent on time and content of last meal. Glucose of more than 200 mg/dL in a nonstressed, ambulatory subject supports the diagnosis of Diabetes Mellitus. ADA recommended reference range Performed By: #### C BC, LIPASE, CMP #### [address] Potassium [Moles/Vol] 4.0 mmol/L Normal 3.5-5.1 [facility] Comment on above: Performed By: #### C BC, LIPASE, CMP #### [address] Sodium [Moles/Vol] 137 mmol/L Normal 136-145 [facility] Comment on above: Performed By: #### C BC, LIPASE, CMP #### [address] Urea nitrogen [Mass/Vol] 22 mg/dL Normal 7-25 [facility] Comment on above: Performed By: #### C BC, LIPASE, CMP #### [address] Complete Blood Count Auto Di ffon 07-22-2024 Basophils (Bld) [#/Vol] 0.1 10*3/uL Normal 0.0-0.2 [facility] Comment on above: Result Comment: PERF ORMED BY: [place] [address] PATHOLOGIST SIGNAL WORKER HELPER CESAR GRIJALVA M.D. Performed By: #### C BC, LIPASE, CMP #### [place] [address] [place] Basophils/100 WBC (Bld) 0.9 % Normal . [facility] Comment on above: Performed By: #### C BC, LIPASE, CMP #### [address] Eosinophils (Bld) [#/Vol] 0.3 10*3/uL Normal 0.0-0.45 [facility] Comment on above: Performed By: #### C BC, LIPASE, CMP #### [place] [address] [place] Eosinophils/100 WBC (Bld) 3.8 % Normal . [facility] Comment on above: Performed By: #### C BC, LIPASE, CMP #### [address] Erythrocyte distribution width (RBC) [Ratio] 13.6 % Normal 11.9-15.3 [facility] Comment on above: Performed By: #### C BC, LIPASE, CMP #### [address] Hematocrit (Bld) [Volume fraction] 41.2 % Normal 34.0-46.4 [facility] Comment on above: Performed By: #### C BC, LIPASE, CMP #### [address] Hemoglobin (Bld) [Mass/Vol] 13.6 g/dL Normal 11.8-15.4 [facility] Comment on above: Performed By: #### C BC, LIPASE, CMP #### [address] Lymphocytes (Bld) [#/Vol] 2.1 10*3/uL Normal 1.00-4.8 [facility] Comment on above: Performed By: #### C BC, LIPASE, CMP #### [address] Lymphocytes/100 WBC (Bld) 26.0 % Normal . [facility] Comment on above: Performed By: #### C BC, LIPASE, CMP #### [address] MCH (RBC) [Entitic mass] 29.0 pg Normal 24.7-34.3 [facility] Comment on above: Performed By: #### C BC, LIPASE, CMP #### [address] MCV (RBC) [Entitic vol] 87.7 fL Normal 80-100 [facility] Comment on above: Performed By: #### C BC, LIPASE, CMP #### [address] Mean Corpuscular HGB Conc 33.0 g/dL Normal 32.0-35.0 [facility] Comment on above: Performed By: #### C BC, LIPASE, CMP #### [facility] [address] [place] [address] [place] Monocytes (Bld) [#/Vol] 0.8 10*3/uL Normal 0.0-0.8 [facility] Comment on above: Performed By: #### C BC, LIPASE, CMP #### [facility] [address] [place] [address] [place] Monocytes/100 WBC (Bld) 9.9 % Normal . [facility] Comment on above: Performed By: #### C BC, LIPASE, CMP #### [facility] [address] [place] [address] [place] Neutrophils (Bld) [#/Vol] 4.7 10*3/uL Normal 1.8-7.7 [facility] Comment on above: Performed By: #### C BC, LIPASE, CMP #### [facility] [address] [place] [address] [place] Neutrophils/100 WBC (Bld) 59.4 % Normal . [facility] Comment on above: Performed By: #### C BC, LIPASE, CMP #### [facility] [address] [place] [address] [place] NRBC% 0.1 /100{WBC} Normal 0-0.5 [facility] Comment on above: Performed By: #### C BC, LIPASE, CMP #### [facility] [address] [place] [address] [place] Platelet mean volume (Bld) [Entitic vol] 9.1 fL Normal 6.3-10.[address] [facility] Comment on above: Performed By: #### C BC, LIPASE, CMP #### [facility] [address] [place] [address] [place] Platelets (Bld) [#/Vol] 295 10*3/uL Normal 150-450 [facility] Comment on above: Performed By: #### C BC, LIPASE, CMP #### [facility] [address] [place] [address] [place] RBC (Bld) [#/Vol] 4.70 10*6/uL Normal 3.60-5.00 [facility] Comment on above: Performed By: #### C BC, LIPASE, CMP #### [facility] [address] [place] [address] WBC (Bld) [#/Vol] 8.0 10*3/uL Normal 3.8-11.6 [facility] Comment on above: Performed By: #### C BC, LIPASE, CMP #### [facility] [address] [place] [address] ECG 12 lead ECGon 07-22-2024 ECG 12 lead ECG [facility] [place] [address] Electrocardiograph Report Signed Patient: Rufino Collins MR#: [id number] : 1940 Acct:[id number] Age/Sex: 84 / F ADM Date: 07/21/24 Loc: Room: [address] [place] [address] Type: ADM IN Attending Dr: Gagan Wylie MD Ordering Provider: MOOK MCKENZIE DO Date of Service: 07/22/24 ECG/ECG 12 lead ECG: pre-op Copies to: Test Reason : Blood Pressure : */* mmHG Vent. Rate : 74 BPM Atrial Rate : 74 BPM P-R Int : 156 ms QRS Dur : 162 ms QT Int : 432 ms P-R-T Axes : 42 255 44 degrees QTcB Int : 479 ms Atrial-sensed ventricular-paced rhythm Abnormal ECG When compared with ECG of 20-Jul-2014 09:24, Electronic ventricular pacemaker has replaced Sinus rhythm Confirmed by Tra Rubio ([id number]) on 07/22/2024 2:07:00 PM Referred By: Electronically Signed By: Tra Rubio Transcribed By: MUS Signed By Tra Rubio MD 07/22/24 1407 Normal [facility] [place] urethrocystogram retroon 07-22-2024 [place] urethrocystogram retro [facility] [address] Fluoroscopy Report Signed Patient: Rufino Collins MR#: [id number] : 1940 Acct:[id number] Age/Sex: 84 / F ADM Date: 07/21/24 Loc: 3T Room: [address] [place] [address] Type: ADM IN Attending Dr: Gagan Wylie MD Copies to: MD Jessica Zaragoza MD Ordering Provider: Jessica Linton MD Date of Service: 07/22/24 FL/FL urethrocystogram retro: KIDNEY STONE Intraoperative study. Reason for exam: Left hydronephrosis and left renal calculi. Findings: 7 images were obtained intraoperatively. Contrast is seen involving the left collecting system. Subsequent stent placement. Cumulative Air Kerma in mGy: 6 mGy FL/FL urethrocystogram retro Impression: Intraoperative study. Impression dictated by: Matthias Vuong Jr., D.O.07/22/2024 1:36 PM Dictation Location: [place] [address] Transcribed By: [facility] 07/22/24 1336 Dictated By: Matthias Vuong Jr, DO 07/22/24 1335 Signed By: 07/22/24 1336 Normal [facility] Fluoroscopy reportOrdered By : Matthias Vuong on 07-22-2024 RF Unspecified body region Views [facility] [place] [address] Fluoroscopy Report Signed Patient: Rufino Collins MR#: [id number] : 1940 Acct:[id number] Age/Sex: 84 / F ADM Date: 5 Loc: 3T Room: [address] [place] [address] Type: ADM IN Attending Dr: Gagan Wylie MD Copies to: MD Jessica Zaragoza MD~ Ordering Provider: Jessica Linton MD Date of Service: 07/22/24 FL/FL urethrocystogram retro: KIDNEY STONE Intraoperative study. Reason for exam: Left hydronephrosis and left renal calculi. Findings: 7 images were obtained intraoperatively. Contrast is seen involving the left collecting system. Subsequent stent placement. Cumulative Air Kerma in mGy: 6 mGy FL/FL urethrocystogram retro Impression: Intraoperative study. Impression dictated by: Kaya Remy Jr.O.07/22/2024 1:36 PM Dictation Location: [facility]--23 Transcribed By: ADRIANO 07/22/241335 Dictated By: Matthias Vuong Jr, DO 07/22/241334 Signed By: 07/22/241335 [facility] Glucose Glucometer (BldC) [M ass/Vol]Ordered By: Gagan Wylie on 07-22-2024 Glucose [Mass/Vol] Capillary blood gluc ose measurement by glucometer (mass/volume) [facility] Comment on above: Random Glucose Refer ence Range is dependent on time and content of last meal. Glucose of more than 200 mg/dL in a nonstressed, ambulatory subject supports the diagnosis of Diabetes Mellitus. Glucose Poct Glucometerson 0 07-22-2024 Glucose [Mass/Vol] 124 mg/dL Normal [facility] Comment on above: Result Comment: [place] om Glucose Reference Range is dependent on time and content of last meal. Glucose of more than 200 mg/dL in a nonstressed, ambulatory subject supports the diagnosis of Diabetes Mellitus. PERFORMED BY: [facility] [address] [place] [address] PATHOLOGIST SIGNAL WORKER HELPER CESAR GRIJALVA M.D. Performed By: #### G LULS #### Point of Care testing , Commemt1 Glu2: Cleaned Meter Normal [facility] Comment on above: Result Comment: PERF ORMED BY: [facility] [address] [place] [address] PATHOLOGIST SIGNAL WORKER HELPER CESAR GRIJALVA M.D. Performed By: #### G LULS #### Point of Care testing , Glucose [Mass/Vol] 154 mg/dL Normal [facility] Comment on above: Result Comment: [place] om Glucose Reference Range is dependent on time and content of last meal. Glucose of more than 200 mg/dL in a nonstressed, ambulatory subject supports the diagnosis of Diabetes Mellitus. Performed By: #### G LULS #### Point of Care testing , Evens 07-22-2024 L --- Specimen: [id number] Received: 07/23/24 Status: ROASLBA Bradley Num: [id number] Spec Type: Cytology Subm Dr: Jessica Linton MD Tissues: A URINECYTO (URINE) Procedures: Cyto Prepstain, PAPSTN Age/ Patient Sex Location Account Attending Physician Rufino Collins 84/F 3T [id number] Gagan Wylie MD SPEC NUM: [id number] RECD: 07/23/24 STATUS: ROSALBA BRADLEY NUM: [id number] KASHIF: 07/22/[address]: Jessica Linton MD ENTERED: 07/23/24 [facility] DR: Gagan Wylie MD SPEC TYPE: Cytology DEPT: CNG ENTERED BY: [id number] RECV BY: [id number] ORDERED: Cyto Prepstain, PAPSTN ORDERED: Cyto Prepstain, PAPSTN Supplemental Report Addendum 1 Entered: 07/25/24 Supplemental to correct the CPT code without a change of diagnosis Corrected CPT code: -61323 Addendum Signed (signature on file) Trista Kelly MD 07/25/241622 Pathological Diagnosis Urine cytology: -No obvious features of high-grade urothelial carcinoma -Marked numbers of the slightly obscuring neutrophilic PMNs with occasional degenerated at ypia of urothelial cells, or possible rare degenerated atypical cells, otherwise is compatible with marked urinary tract inflammation and/or infection Specimen: [id number] Received: 07/23/24 Status: [facility] [place] Num: [id number] Spec Type: Cytology Subm Dr: Jessica Linton MD Tissues: A URINECYTO (URINE) Procedures: Cyto Prepstain, PAPSTN Patient: DennisRufino [id number] (Continued) Specimen: [id number] Received: 07/23/24 (Continued) Signed (signature on file) Trista Kelly MD 07/25/24 1120 Specimen: [id number] Received: 07/23/24 Status: ROSALBA Bradley Num: [id number] Spec Type: Cytology Subm Dr: Jessica Linton MD Tissues: A URINECYTO (URINE) Procedures: Cyto Prepstain, PAPSTN Patient: Rufino hayes [id number] (Continued) Specimen: [id number] Received: 07/23/24 (Continued) Gross Description Received fresh is 10 ml yellow opaque unfixed fluid for cytology said to have been obtained as Urine. ThinPrep preparations are prepared for microscopic examination. (CC/nh) Microscopic Description Microscopic examination is performed CPT Codes 22353 Specimen: [id number] Received: 07/23/24 Status: MISPilar Bradley Num: [id number] Spec Type: Cytology Subm Dr: Jessica Linton MD Tissues: A URINECYTO (URINE) Procedures: Cyto Prepstain, PAPSTN Patient: Rufino Collins [id number] (Continued) Signed (signature on file) Naldo-Jose Kelly MD 07/25/24 1120 Normal [facility] No Panel InformationOrdered By: Gagan Wylie on 07-22-2024 Bedside Glucose Comment Glu2: cleaned meter [facility] Alanine aminotransferase [En zymatic activity/volume] in Serum or PlasmaOrdered By: Adin Medley on 07-21-2024 ALT [Catalytic activity/Vol] Alanine aminotransferase [Enzymatic activity/volume] in Serum or Plasma 7-52 [facility] Albumin [Mass/volume] in Ser um or Plasma by Bromocresol green (BCG) dye binding methoOrdered By: Adin Medley on 07-21-2024 Albumin BCG dye [Mass/Vol] Albumin [Mass/volume] in Serum or Plasma by Bromocresol green (BCG) dye binding metho 3.5-5.7 [facility] Alkaline phosphatase [Enzyma tic activity/volume] in Serum or PlasmaOrdered By: Adin Medley on 07-21-2024 ALP [Catalytic activity/Vol] Alkaline phosphatase [Enzymatic activity/volume] in Serum or Plasma 34-104 [facility] Appearance of UrineOrdered B y: Adin Medley on 07-21-2024 Appearance (U) Urine appearance Abnormal Clear [facility] Aspartate aminotransferase [ Enzymatic activity/volume] in Serum or PlasmaOrdered By: Adin Medley on 07-21-2024 AST [Catalytic activity/Vol] Aspartate aminotransferase [Enzymatic activity/volume] in Serum or Plasma 13-39 [facility] Bacteria [Presence] in Urine by AutomatedOrdered By: Adin Medley on 07-21-2024 Bacteria Auto Ql (U) Bacteria [Presence] in Urine by Automated High None Seen [facility] Basophils Auto (Bld) [#/Vol] Ordered By: Adin Medley on 07-21-2024 Basophils (Bld) [#/Vol] Automated basophil count 0.0-0.2 [facility] Basophils/100 WBC Auto (Bld) Ordered By: Adin Medley on 07-21-2024 Basophils/100 WBC (Bld) Automated basophil % . [facility] Bilirubin Test strip Ql (U)O rdered By: Adin Medley on 07-21-2024 Bilirubin Ql (U) Bilirubin.total [Presence] in Urine by Test strip Negative [facility] Bilirubin.total [Mass/volume ] in Serum or PlasmaOrdered By: Adin Medley on 07-21-2024 Bilirubin [Mass/Vol] Bilirubin.total [Mass/volume] in Serum or Plasma 0.3-1.0 [facility] CT abdomen pelvis wo conon 0 07-21-2024 CT abdomen pelvis wo con [facility] [place] [address] CT Scan Report Signed Patient: Rufino Collins MR#: [id number] : 1940 Acct:[id number] Age/Sex: 84 / F ADM Date: 07/21/24 Loc: ER Room: Type: [facility] ER Attending Dr: Copies to: Adin Medley DO Ordering Provider: Adin Medley DO Date of Service: 07/21/24 CT/CT abdomen pelvis wo con: l flank pain CT ABDOMEN AND PELVIS WITHOUT INTRAVENOUS CONTRAST: CLINICAL HISTORY: Flank pain, left hip pain, history kidney stones COMPARISON: None TECHNIQUE: Spiral images were obtained through the abdomen and pelvis without intravenous contrast. This CT exam was performed using one or more following dose reduction techniques: Automated exposure control, adjustment of the mA and/or kV according to patient size, or use of iterative reconstruction technique. FINDINGS: Lung Bases: [Pacemaker leads within the heart. Small hiatal hernia. Minimal dependent atelectasis.] Organs:Right hepatic cyst superiorly. Otherwise the liver, spleen, adrenals, pancreas unremarkable. Gallbladder absent. Kidneys measure size. No right-sided hydronephrosis. Punctate right upper pole renal calculus. On the left left, there is mild left-sided hydroureteronephrosis.. There is evidence of a left sided calculus within left collecting system measuring 1.0 x 0.7 cm. Additional left-sided calculi up to 4 mm size identified.[ GI: Mild to moderate retained stool. No bowel obstruction. Colonic diverticulosis.[ Pelvis:[At the level of the left ureterovesical junction of the left ureter, there is left bladder wall thickening and adjacent perivesical changes with bladder wall thickening measuring 9 mm. Uterus absent. No adnexal mass.] Peritoneum/Retroperiton eum:There are few left-sided. Lymph nodes at the level of the left kidney, subcentimeter in size. No free air or free fluid. Aortic vascular dilatation.[ Abd wall/Bones:Multilevel degenerative changes throughout the lumbar spine.[ CT/CT abdomen pelvis wo con IMPRESSION: Left-sided hydroureteronephrosis possibly caused by left lateral bladder wall thickening and adjacent fat stranding findings worrisome for bladder neoplasm. Focal cystitis favor less likely. Consider urological consultation with cystoscopy.. Left-sided renal calculi largest which within the pelvis measuring 1 cm in size. These are nonobstructive Impression dictated by: Lucio Mcclure M.D.07/21/2024 3:15 PM Dictation Location: [place] [address] Transcribed By: [facility] 07/21/24 1515 Dictated By: Lucio Mcclure MD 07/21/24 1509 Signed By: 07/21/24 1515 Normal [facility] Calcium [Mass/volume] in Ser um or PlasmaOrdered By: Adin Medley on 07-21-2024 Calcium [Mass/Vol] Calcium [Mass/volume ] in Serum or Plasma 8.6-10.3 [facility] Calcium oxalate crystals [Pr esence] in Urine by Computer assisted methodOrdered By: Adin Medley on 07-21-2024 Calcium oxalate crystals Computer assisted Ql (U) Calcium oxalate crystals [Presence] in Urine by Computer assisted method [facility] Carbon dioxide, total [Moles /volume] in Serum or PlasmaOrdered By: Adin Medley on 07-21-2024 CO2 [Moles/Vol] Carbon dioxide, tota l [Moles/volume] in Serum or Plasma Low 21.0-31.0 [facility] Chloride [Moles/volume] in S katt or PlasmaOrdered By: Adin Medley on 07-21-2024 Chloride [Moles/Vol] Chloride [Moles/vol ume] in Serum or Plasma High 98-107 [facility] Color Auto (U)Ordered By: Servando Medley on 07-21-2024 Color (U) Color of Urine by Auto Abnormal Yellow Fi [facility] Complete Blood Count Auto Di ffon 07-21-2024 Basophils (Bld) [#/Vol] 0.1 10*3/uL Normal 0.0-0.2 [facility] Comment on above: Result Comment: PERF ORMED BY: [place] [address] PATHOLOGIST SIGNAL WORKER HELPER CESAR GRIJALVA M.D. Performed By: #### C BC, LIPASE, CMP #### [address] Basophils/100 WBC (Bld) 1.1 % Normal . [facility] Comment on above: Performed By: #### C BC, LIPASE, CMP #### [address] Eosinophils (Bld) [#/Vol] 0.2 10*3/uL Normal 0.0-0.45 [facility] Comment on above: Performed By: #### C BC, LIPASE, CMP #### [address] Eosinophils/100 WBC (Bld) 2.5 % Normal . [facility] Comment on above: Performed By: #### C BC, LIPASE, CMP #### [address] Erythrocyte distribution width (RBC) [Ratio] 13.9 % Normal 11.9-15.3 [facility] Comment on above: Performed By: #### C BC, LIPASE, CMP #### [address] Hematocrit (Bld) [Volume fraction] 45.5 % Normal 34.0-46.4 [facility] Comment on above: Performed By: #### C BC, LIPASE, CMP #### [address] Hemoglobin (Bld) [Mass/Vol] 14.9 g/dL Normal 11.8-15.4 [facility] Comment on above: Performed By: #### C BC, LIPASE, CMP #### [address] Lymphocytes (Bld) [#/Vol] 2.4 10*3/uL Normal 1.00-4.8 [facility] Comment on above: Performed By: #### C BC, LIPASE, CMP #### [address] Lymphocytes/100 WBC (Bld) 25.2 % Normal . [facility] Comment on above: Performed By: #### C BC, LIPASE, CMP #### [address] MCH (RBC) [Entitic mass] 29.1 pg Normal 24.7-34.3 [facility] Comment on above: Performed By: #### C BC, LIPASE, CMP #### [address] MCV (RBC) [Entitic vol] 89.0 fL Normal 80-100 [facility] Comment on above: Performed By: #### C BC, LIPASE, CMP #### [address] Mean Corpuscular HGB Conc 32.7 g/dL Normal 32.0-35.0 [facility] Comment on above: Performed By: #### C BC, LIPASE, CMP #### [address] Monocytes (Bld) [#/Vol] 0.8 10*3/uL Normal 0.0-0.8 [facility] Comment on above: Performed By: #### C BC, LIPASE, CMP #### [address] Monocytes/100 WBC (Bld) 17.93 % Normal 0.00-20.00 [facility] Comment on above: Performed By: #### C BC, LIPASE, CMP #### [address] [place] [address] [place] Monocytes/100 WBC (Bld) 7.9 % Normal . [facility] Comment on above: Performed By: #### C BC, LIPASE, CMP #### [address] Neutrophils (Bld) [#/Vol] 6.1 10*3/uL Normal 1.8-7.7 [facility] Comment on above: Performed By: #### C BC, LIPASE, CMP #### [address] Neutrophils/100 WBC (Bld) 63.3 % Normal . [facility] Comment on above: Performed By: #### C BC, LIPASE, CMP #### [address] NRBC% 0.1 /100{WBC} Normal 0-0.5 [facility] Comment on above: Performed By: #### C BC, LIPASE, CMP #### [address] Platelet mean volume (Bld) [Entitic vol] 9.2 fL Normal 6.3-10.[address] [facility] Comment on above: Performed By: #### C BC, LIPASE, CMP #### [place] [address] [place] Platelets (Bld) [#/Vol] 308 10*3/uL Normal 150-450 [facility] Comment on above: Performed By: #### C BC, LIPASE, CMP #### [place] [address] [place] RBC (Bld) [#/Vol] 5.11 10*6/uL High 3.60-5.00 [facility] Comment on above: Performed By: #### C BC, LIPASE, CMP #### [place] [address] [place] WBC (Bld) [#/Vol] 9.7 10*3/uL Normal 3.8-11.6 [facility] Comment on above: Performed By: #### C BC, LIPASE, CMP #### [address] Comprehensive Metabolic Pane evens 07-21-2024 Albumin [Mass/Vol] 4.0 g/dL Normal 3.5-5.7 [facility] Comment on above: Performed By: #### C BC, LIPASE, CMP #### [address] Albumin/Globulin [Mass ratio] 1.1 {ratio} Normal [facility] Comment on above: Performed By: #### C BC, LIPASE, CMP #### [address] ALP [Catalytic activity/Vol] 81 U/L Normal 34-104 [facility] Comment on above: Performed By: #### C BC, LIPASE, CMP #### [address] ALT [Catalytic activity/Vol] 17 U/L Normal 7-52 [facility] Comment on above: Performed By: #### C BC, LIPASE, CMP #### [address] Anion gap [Moles/Vol] 13.2 mmol/L Normal 6.0-15.0 [facility] Comment on above: Performed By: #### C BC, LIPASE, CMP #### [address] AST [Catalytic activity/Vol] 15 U/L Normal 13-39 [facility] Comment on above: Performed By: #### C BC, LIPASE, CMP #### [address] Bilirubin [Mass/Vol] 0.4 mg/dL Normal 0.3-1.0 [facility] Comment on above: Performed By: #### C BC, LIPASE, CMP #### [address] Calcium [Mass/Vol] 9.2 mg/dL Normal 8.6-10.3 [facility] Comment on above: Performed By: #### C BC, LIPASE, CMP #### [address] Chloride [Moles/Vol] 108 mmol/L High 98-107 [facility] Comment on above: Performed By: #### C BC, LIPASE, CMP #### [facility] [address] CO2 [Moles/Vol] 18.0 mmol/L Low 21.0-31.0 [facility] Comment on above: Performed By: #### C BC, LIPASE, CMP #### [address] Creatinine [Mass/Vol] 0.86 mg/dL Normal 0.60-1.20 [facility] Comment on above: Performed By: #### C BC, LIPASE, CMP #### [address] Creatinine Clr Calc Pharmacy 63.61 Normal [facility] Comment on above: Performed By: #### C BC, LIPASE, CMP #### [place] [address] [place] GFR/1.73 sq M.predicted MDRD (S/P/Bld) [Vol rate/Area] mL/min/{1.73_m2} Normal [facility] Comment on above: Performed By: #### C BC, LIPASE, CMP #### [address] Globulin (S) [Mass/Vol] 3.5 g/dL Normal [facility] Comment on above: Performed By: #### C BC, LIPASE, CMP #### [address] Glucose [Mass/Vol] 160 mg/dL High 70-100 [facility] Comment on above: Result Comment: [place] Glucose Reference Range is dependent on time and content of last meal. Glucose of more than 200 mg/dL in a nonstressed, ambulatory subject supports the diagnosis of Diabetes Mellitus. ADA recommended reference range Performed By: #### C BC, LIPASE, CMP #### [place] [address] [place] Potassium [Moles/Vol] 4.2 mmol/L Normal 3.5-5.1 [facility] Comment on above: Performed By: #### C BC, LIPASE, CMP #### [facility] [address] Protein [Mass/Vol] 7.5 g/dL Normal 6.4-8.9 [facility] Comment on above: Performed By: #### C BC, LIPASE, CMP #### [facility] [address] Sodium [Moles/Vol] 135 mmol/L Low 136-145 [facility] Comment on above: Performed By: #### C BC, LIPASE, CMP #### [address] Urea nitrogen [Mass/Vol] 22 mg/dL Normal 7-25 [facility] Comment on above: Performed By: #### C BC, LIPASE, CMP #### [address] Creatinine [Mass/volume] in Serum or PlasmaOrdered By: Adin Medley on 07-21-2024 Creatinine [Mass/Vol] Creatinine [Mass/volume] in Serum or Plasma 0.60-1.20 [facility] Dipstick and Microscopicon 0 07-21-2024 Appearance (U) Turbid Critically abnormal Clear [facility] Comment on above: Order Comment: Name Collection Type:: Clean-Voided Midstream Performed By: #### A DDONUAPLUS, CUU #### [place] [address] [place] Bacteria,Urine 3+ High None Seen [facility] Comment on above: Order Comment: Name Collection Type:: Clean-Voided Midstream Performed By: #### A DDONUAPLUS, CUU #### [facility] [address] [place] [address] [place] Bilirubin,Urine Negative Normal Negative [facility] Comment on above: Order Comment: Name Collection Type:: Clean-Voided Midstream Performed By: #### A DDONUAPLUS, CUU #### [address] Calcium Oxalate Crystals,Urine Rare Normal [facility] Comment on above: Order Comment: Name Collection Type:: Clean-Voided Midstream Performed By: #### A DDONUAPLUS, CUU #### [address] Color (U) Dark-Yellow Critically abnormal Yellow [facility] Comment on above: Order Comment: Name Collection Type:: Clean-Voided Midstream Performed By: #### A DDONUAPLUS, CUU #### [address] Glucose Ql (U) Normal Normal Normal [facility] Comment on above: Order Comment: Name Collection Type:: Clean-Voided Midstream Performed By: #### A DDONUAPLUS, CUU #### [place] [address] [place] Hyaline Casts,Urine None Normal 0-8 [facility] Comment on above: Order Comment: Name Collection Type:: Clean-Voided Midstream Performed By: #### A DDONUAPLUS, CUU #### [address] Ketones Ql (U) Negative Normal Negative [facility] Comment on above: Order Comment: Name Collection Type:: Clean-Voided Midstream Performed By: #### A DDONUAPLUS, CUU #### [place] [address] [place] Leukocyte esterase Test strip Ql (U) 4+ High Negative [facility] Comment on above: Order Comment: Name Collection Type:: Clean-Voided Midstream Performed By: #### A DDONUAPLUS, CUU #### [place] [address] [place] Mucus,Urine Rare Normal [facility] Comment on above: Order Comment: Name Collection Type:: Clean-Voided Midstream Result Comment: PERF ORMED BY: [place] [address] PATHOLOGIST SIGNAL WORKER HELPER CESAR GRIJALVA M.D. Performed By: #### A DDONUAPLUS, CUU #### [place] [address] [place] Nitrite,Urine Negative Normal Negative [facility] Comment on above: Order Comment: Name Collection Type:: Clean-Voided Midstream Performed By: #### A DDONUAPLUS, CUU #### [address] Occult Blood,Urine 2+ High Negative [facility] Comment on above: Order Comment: Name Collection Type:: Clean-Voided Midstream Result Comment: PERF ORMED BY: [place] [address] PATHOLOGIST SIGNAL WORKER HELPER CESAR GRIJALVA M.D. Performed By: #### A DDONUAPLUS, CUU #### [address] pH (U) 5.5 [pH] Normal 5.0-9.0 [facility] Comment on above: Order Comment: Name Collection Type:: Clean-Voided Midstream Performed By: #### A DDONUAPLUS, CUU #### [address] Protein (U) [Mass/Vol] 50 mg/dL High Negative [facility] Comment on above: Order Comment: Name Collection Type:: Clean-Voided Midstream Performed By: #### A DDONUAPLUS, CUU #### [address] RBC,Urine 20-49 High 0-4 [facility] Comment on above: Order Comment: Name Collection Type:: Clean-Voided Midstream Performed By: #### A DDONUAPLUS, CUU #### [place] [address] [place] Specificy [place],Urine 1.018 Normal 1.001-1.030 [facility] Comment on above: Order Comment: Name Collection Type:: Clean-Voided Midstream Performed By: #### A DDONUAPLUS, CUU #### [facility] [address] Squamous Epithelial Cell,Urine 10-19 High 0-2 [facility] Comment on above: Order Comment: Name Collection Type:: Clean-Voided Midstream Performed By: #### A DDONUAPLUS, CUU #### [facility] [address] Urobilinogen,Urine Normal Normal Normal [facility] Comment on above: Order Comment: Name Collection Type:: Clean-Voided Midstream Performed By: #### A DDONUAPLUS, CUU #### [facility] [address] WBC CLUMP, Urine Many High None Seen [facility] Comment on above: Order Comment: Name Collection Type:: Clean-Voided Midstream Performed By: #### A DDONUAPLUS, CUU #### [facility] [address] WBC,Urine Innumerable High 0-4 [facility] Comment on above: Order Comment: Name Collection Type:: Clean-Voided Midstream Performed By: #### A DDONUAPLUS, CUU #### [facility] [address] [place] [address] Eosinophils Auto (Bld) [#/Vo l]Ordered By: Adin Medley on 07-21-2024 Eosinophils (Bld) [#/Vol] Automated eosinophil count 0.0-0.45 [facility] Eosinophils/100 WBC Auto (Bl d)Ordered By: Adin Medley on 07-21-2024 Eosinophils/100 WBC (Bld) Automated eosinophil % . [facility] Epithelial cells.squamous [# /area] in Urine sediment by Automated countOrdered By: Adin Medley on 07-21-2024 Epithelial cells.squamous Auto (Urine sed) [#/Area] Epithelial cells.squamous [#/area] in Urine sediment by Automated count High 0-2 [facility] Erythrocyte distribution wid th Auto (RBC) [Ratio]Ordered By: Adin Medley on 07-21-2024 Erythrocyte distribution width (RBC) [Ratio] Erythrocyte distribution width [Ratio] by Automated count 11.9-15.3 [facility] Erythrocytes [#/area] in Uri ne sediment by Automated countOrdered By: Adin Medley on 07-21-2024 RBC Auto (Urine sed) [#/Area] Erythrocytes [#/area] in Urine sediment by Automated count High 0-4 [facility] Globulin Calc (S) [Mass/Vol] Ordered By: Adin Medley on 07-21-2024 Globulin (S) [Mass/Vol] Serum globulin measurement by calculation (mass/volume) [facility] Glucose [Mass/volume] in Ser um or PlasmaOrdered By: Adin Medley on 07-21-2024 Glucose [Mass/Vol] Glucose [Mass/volume ] in Serum or Plasma High 70-100 [facility] Comment on above: ADA recommended refe rence rangeRandom Glucose Reference Range is dependent on time and content of last meal. Glucose of more than 200 mg/dL in a nonstressed, ambulatory subject supports the diagnosis of Diabetes Mellitus. Glucose [Mass/volume] in Uri ne by Test stripOrdered By: Adin Medley on 07-21-2024 Glucose Test strip (U) [Mass/Vol] Glucose [Mass/volume] in Urine by Test strip Normal [facility] Hematocrit Auto (Bld) [Volum e fraction]Ordered By: Adin Medley on 07-21-2024 Hematocrit (Bld) [Volume fraction] Hematocrit [Volume Fraction] of Blood by Automated count 34.0-46.4 [facility] Hemoglobin Test strip Ql (U) Ordered By: Adni Medley on 07-21-2024 Hemoglobin Ql (U) Hemoglobin [Presence ] in Urine by Test strip High Negative [facility] [facility] Hemoglobin [Mass/volume] in BloodOrdered By: Adin Medley on 07-21-2024 Hemoglobin (Bld) [Mass/Vol] Hemoglobin [Mass/volume] in Blood 11.8-15.4 [facility] Hyaline casts [#/area] in Ur ine sediment by Automated countOrdered By: Adin Medley on 07-21-2024 Hyaline casts Auto (Urine sed) [#/Area] Hyaline casts [#/area] in Urine sediment by Automated count 0-8 [facility] Ketones Test strip Ql (U)Ord ered By: Adin Medley on 07-21-2024 Ketones Ql (U) Ketones [Presence] i n Urine by Test strip Negative [facility] Leukocyte clumps [Presence] in Urine by AutomatedOrdered By: Adin Medley on 07-21-2024 Leukocyte clumps Auto Ql (U) Leukocyte clumps [Presence] in Urine by Automated High None Seen [facility] Leukocyte esterase [Presence ] in Urine by Test stripOrdered By: Adin Medley on 07-21-2024 Leukocyte esterase Test strip Ql (U) Leukocyte esterase [Presence] in Urine by Test strip High Negative [facility] Leukocytes [#/area] in Urine sediment by Automated countOrdered By: Adin Medley on 07-21-2024 WBC Auto (Urine sed) [#/Area] Leukocytes [#/area] in Urine sediment by Automated count High 0-4 [facility] Leukocytes [#/volume] correc christo for nucleated erythrocytes in Blood by Automated counOrdered By: Adin Medley on 07-21-2024 WBC corrected for nucl RBC Auto (Bld) [#/Vol] Leukocytes [#/volume] corrected for nucleated erythrocytes in Blood by Automated coun 3.8-11.6 [facility] Lipaseon 07-21-2024 Lipase [Catalytic activity/Vol] 179.0 U/L High 11.0-82.0 [facility] Comment on above: Result Comment: PERF ORMED BY: [place] [address] PATHOLOGIST SIGNAL WORKER HELPER CESAR GRIJALVA M.D. Performed By: #### C BC, LIPASE, CMP #### [facility] [address] [place] [address] Lipase [Enzymatic activity/v olume] in Serum or PlasmaOrdered By: Adin Medley on 07-21-2024 Lipase [Catalytic activity/Vol] Lipase [Enzymatic activity/volume] in Serum or Plasma High 11.0-82.0 [facility] Lymphocytes Auto (Bld) [#/Vo l]Ordered By: Adin Medley on 07-21-2024 Lymphocytes (Bld) [#/Vol] Lymphocytes [#/volume] in Blood by Automated count 1.00-4.8 [facility] Lymphocytes/100 WBC Auto (Bl d)Ordered By: Adin Medley on 07-21-2024 Lymphocytes/100 WBC (Bld) Lymphocytes/100 leukocytes in Blood by Automated count . [facility] MCH Auto (RBC) [Entitic mass ]Ordered By: Adin Medley on 07-21-2024 MCH (RBC) [Entitic mass] MCH [Entitic mass] by Automated count 24.7-34.3 [facility] MCHC Auto (RBC) [Mass/Vol]Or dered By: Adin Medley on 07-21-2024 MCHC (RBC) [Mass/Vol] MCHC [Mass/volume] by Automated count 32.0-35.0 [facility] MCV Auto (RBC) [Entitic vol] Ordered By: Adin Medley on 07-21-2024 MCV (RBC) [Entitic vol] MCV [Entitic volume] by Automated count 80-100 [facility] Monocyte distribution width [Entitic volume] in Blood by AutomatedOrdered By: Adin Medley on 07-21-2024 Monocyte distribution width Auto (Bld) [Entitic vol] Monocyte distribution width [Entitic volume] in Blood by Automated 0.00-20.00 [facility] Monocytes Auto (Bld) [#/Vol] Ordered By: Adin Medley on 07-21-2024 Monocytes (Bld) [#/Vol] Automated blood monocyte count 0.0-0.8 [facility] Monocytes/100 WBC Auto (Bld) Ordered By: Adin Medley on 07-21-2024 Monocytes/100 WBC (Bld) Automated monocyte % . [facility] Mucus [Presence] in Urine by AutomatedOrdered By: Adin Medley on 07-21-2024 Mucus Auto Ql (U) Mucus [Presence] in Urine by Automated [facility] Neutrophils Auto (Bld) [#/Vo l]Ordered By: Adin Medley on 07-21-2024 Neutrophils (Bld) [#/Vol] Neutrophils [#/volume] in Blood by Automated count 1.8-7.7 [facility] Neutrophils/100 WBC Auto (Bl d)Ordered By: Adin Medley on 07-21-2024 Neutrophils/100 WBC (Bld) Automated neutrophil % . [facility] Nitrite Test strip Ql (U)Ord ered By: Adin Medley on 07-21-2024 Nitrite Ql (U) Nitrite [Presence] i n Urine by Test strip Negative [facility] No Panel InformationOrdered By: Adin Medley on 07-21-2024 Estimated GFR (CKD-EPI) > 60.0 mL/Min [facility] Creatinine Clearance (Chem 63.61 [facility] Nucleated erythrocytes [Pres ence] in Blood by Automated countOrdered By: Adin Medley on 07-21-2024 Nucleated RBC Auto Ql (Bld) Nucleated erythrocytes [Presence] in Blood by Automated count 0-0.5 [facility] Platelet mean volume Auto (B ld) [Entitic vol]Ordered By: Adin Medley on 07-21-2024 Platelet mean volume (Bld) [Entitic vol] Platelet mean volume [Entitic volume] in Blood by Automated count 6.3-10.7 [facility] Platelets Auto (Bld) [#/Vol] Ordered By: Adin Medley on 07-21-2024 Platelets (Bld) [#/Vol] Platelets [#/volume] in Blood by Automated count 150-450 [facility] Potassium [Moles/volume] in Serum or PlasmaOrdered By: Adin Medley on 07-21-2024 Potassium [Moles/Vol] Potassium [Moles/volume] in Serum or Plasma 3.5-5.1 [facility] Protein Test strip (U) [Mass /Vol]Ordered By: Adin Medley on 07-21-2024 Protein (U) [Mass/Vol] Protein [Mass/vol ume] in Urine by Test strip High Negative [facility] Protein [Mass/volume] in Ser um or PlasmaOrdered By: Adin Medley on 07-21-2024 Protein [Mass/Vol] Protein [Mass/volume ] in Serum or Plasma 6.4-8.9 [facility] RBC Auto (Bld) [#/Vol]Ordere d By: Adin Medley on 07-21-2024 RBC (Bld) [#/Vol] Erythrocytes [#/volu me] in Blood by Automated count High 3.60-5.00 [facility] Serum or plasma albumin/glob ulin mass ratioOrdered By: Adin Medley on 07-21-2024 Albumin/Globulin [Mass ratio] Serum or plasma albumin/globulin mass ratio [facility] Serum or plasma anion gap de terminationOrdered By: Adin Medley on 07-21-2024 Anion gap [Moles/Vol] Serum or plasma an ion gap determination 6.0-15.0 [facility] Sodium [Moles/volume] in Ser um or PlasmaOrdered By: Adin Medley on 07-21-2024 Sodium [Moles/Vol] Sodium [Moles/volume ] in Serum or Plasma Low 136-145 [facility] Specific gravity Test strip (U) [Rel density]Ordered By: Adin Medley on 07-21-2024 Specific gravity (U) [Rel density] Specific gravity of Urine by Test strip 1.001-1.030 [facility] Urea nitrogen [Mass/volume] in Serum or PlasmaOrdered By: Adin Medley on 07-21-2024 Urea nitrogen [Mass/Vol] Urea nitrogen [Mass/volume] in Serum or Plasma 7-25 [facility] Urine Cultureon 07-21-2024 Bacteria identified Cx Nom (U) ORGANISM: Aerococcus sanguinicola. (O:AERSAN) Cleves Count 50,000 Organism Comments Organism not Routinely Tested for Susceptibilities Aerococcus urinae and Aerococcus viridans have been described as susceptible to penicillin, amoxicillin, piperacillin, cefepime, rifampin, and nitrofurantoin, and resistant to sulfonamides. PERFORMED BY: [place] [address] PATHOLOGIST SIGNAL WORKER HELPER CESAR GRIJALVA M.D. Normal [facility] Comment on above: Performed By: #### C BC, LIPASE, CMP #### [address] Urine cultureOrdered By: Gladys Medley on 07-21-2024 Bacteria identified Cx Nom (U) Abnormal [facility] Urobilinogen Test strip (U) [Mass/Vol]Ordered By: Adin Medley on 07-21-2024 Urobilinogen (U) [Mass/Vol] Urobilinogen [Mass/volume] in Urine by Test strip Normal [facility] WBC Auto (Bld) [#/Vol]Ordere d By: Adin Medley on 07-21-2024 WBC (Bld) [#/Vol] Leukocytes [#/volume ] in Blood by Automated count 3.8-11.6 [facility] pH Test strip (U)Ordered By: Adin Medley on 07-21-2024 pH (U) pH of Urine by Test strip 5.0-9.0 [facility] CNPNon 07-19-2024 CNPN Telephone (NIQ) RUFINO COLLINS ([id number]) 1940 F Date Time Provider Department 07/19/24 RACHID ODELL NIJose During your visit today, we recorded the following information about you: Aline Polo 07/19/2024 2:41 PM Signed Received a fax from [employer] that states in order to be compliant, they recommend discontinuing one of the antichollnergic medications that the patient is on. See fax scanned in patient's chart. Allergies As of Date: 07/19/2024 Noted Allergy Reaction MOXIFLOXACIN 12/21/2003 5 - Intolerance Comments: thought I was having a heart attack w/ Avelox PERCOCET (OXYCODONE-ACETAMINOPHE N)12/02/2006 5 - Intolerance Comments: Drops BP CAPSAICIN 02/09/2015 9 - Itching PRAVACHOL (PRAVASTATIN SODIUM) 06/15/2009 5 - Intolerance Comments: Muscle cramps CEPHALEXIN 07/22/2016 9 - Itching CLAVULANIC ACID 07/22/2016 9 - Itching FLAGYL (METRONIDAZOLE) 07/22/2016 9 - Itching LEVOFLOXACIN 07/22/2016 9 - Itching SULFA (SULFONAMIDE ANTIBIOTICS) 12/21/2003 8 - GI Upset Date Reviewed: 07/14/2024 Reviewed by: Tri Fernandez MA - Fully Assessed Reason for Visit: Medication Problem [65] Prescriptions as of 07/19/2024 - tolterodine (DETROL) 2 mg tablet - TRUE METRIX GLUCOSE TEST STRIP test strip USE 1 STRIP TO CHECK BLOOD SUGAR ONCE DAILY*E11.65* - glimepiride (AMARYL) 1 mg tablet Take 1 mg by mouth daily with breakfast. - nortriptyline (PAMELOR) 10 mg capsule Take 1 capsule by mouth two times a day. - propranolol (INDERAL) 10 mg tablet Take 1 tablet by mouth four times daily. - Acetaminophen-Caffeine (TENSION HEADACHE PAIN RELIEVER) 500-65 mg tab Take 2 tablets by mouth twice daily. 2 tablets in am, 1 tablet after lunch - Vitamin E, dl, acetate, (VITAMIN E) 400 unit capsule Take 400 Units by mouth as needed. - vit B complx-folic ac-C-biotin 1 mg-100 mg- 300 mcg tab Take by mouth. - loratadine-pseudoephedr ine ER (CLARITIN-D 24) 10-240 mg Tb24 Take 1 tablet by mouth once daily. - busPIRone (BUSPAR) 15 mg tablet Take 1 tablet by mouth twice daily. - Cholecalciferol, Vitamin D3, 10,000 unit cap Take by mouth once daily. - levothyroxine (SYNTHROID) 100 mcg tablet Take 1 tablet by mouth daily before breakfast. - VITAMIN B COMPLEX (B COMPLEX-100 ORAL) Take 1 capsule by mouth once daily. 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 Normal [facility] Comment on above: Performed By: #### C UU #### [address] Urine cultureOrdered By: Jeremias Rajan on 07-19-2024 Bacteria identified Cx Nom (U) Urine culture [facility] CNOVon 07-14-2024 CNOV Office Visit (CAEPAV ) RUFINO COLLINS ([id number]) 1940 F Date Time Provider Department 07/14/24 2:00 PM SETH NOLASCO During your visit today, we recorded the following information about you: Pulse Blood pressure Weight 97/minute 122/78 104.1 kg Seth Nolasco APRN.[employer] 07/14/2024 2:08 PM Signed [facility] [place] [facility] Department of Cardiovascular Medicine SECTION OF ELECTROPHYSIOLOGY AND PACING OUTPATIENT VISIT DATE July 14, 2024 OUTPATIENT VISIT TYPE ESTABLISHED PRIMARY CARE PHYSICIAN: Manav Rajan (Aniket) [address] [place] [address] CHIEF COMPLAINT: Follow Up HISTORY OF PRESENT ILLNESS: Ms. Collins is a 84 year old female, patient of Dr. 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 She was last seen by Dr. Grewal in April of 2023. Since then, she reports that she has been doing well from a cardiovascular perspective. She has had no chest pain, palpitations, dizziness or syncope. Does not take any cardiac medciations. Discovered today that her remote transmitter is not compatible with her new phone system. Will be receiving adaptor shortly. 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, dyslipidemia, hypothyroidsim PAST MEDICAL HISTORY Diagnosis Date Hypertension Hypothyroidism Kidney stones PMH - PAST MEDICAL HISTORY OF type 2 diabetes PAST SURGICAL HISTORY Procedure Laterality Date ADENOIDECTOMY [...] OF 06/26/2009 BAHA implant TONSILLECTOMY PRIMARY/SECONDARY Tonsillectomy SOCIAL HISTORY Social History Tobacco Use Smoking status: Never Smokeless tobacco: Never Substance Use Topics Alcohol use: No Drug use: No FAMILY HISTORY Problem Relation Age of Onset Cancer Mother luekemia Diabetes Mother type 1 Heart Mother Hypertension Mother Lipids Mother ALLERGIES Allergen Reactions Moxifloxacin Intolerance thought I was having a heart attack w/ Avelox Percocet [Oxycodone* Intolerance Drops BP Capsaicin Itching Pravachol [Pravasta* Intolerance Muscle cramps Cephalexin Itching Clavulanic Acid Itching Flagyl [Metronidazo* Itching Levofloxacin Itching Sulfa (Sulfonamide * GI Upset MEDICATIONS: TRUE METRIX GLUCOSE TEST STRIP test strip USE 1 STRIP TO CHECK BLOOD SUGAR ONCE DAILY*E11.65* glimepiride (AMARYL) 1 mg tablet Take 1 mg by mouth daily with breakfast. nortriptyline (PAMELOR) 10 mg capsule Take 1 capsule by mouth two times a day. propranolol (INDERAL) 10 mg tablet Take 1 [...] Take 2 capsules by mouth once daily. loratadine-pseudoephedr ine ER (CLARITIN-D 24) 10-240 mg Tb24 Take [...] daily. Patient denies taking this any longer REVIEW OF SYSTEMS: ROS is otherwise negative apart from what has been documented in HPI PHYSICAL EXAMINATION: BP 122/78 Pulse 97 Wt 104.1 kg (229 lb 8 oz) BMI 34.90 kg/m? General: Well appearing, in no acute distress, speaking in complete sentences. Skin: No clubbing, no cyanosis. Neck: No jugular venous distention, no carotid bruits Lungs: Clear to auscultation bilaterally, no wheezing or rhonchi. Heart: Regular rhythm, S1, S2 present Abdomen: Soft, nontender, bowel sounds present Extremities: No peripheral edema . Grade 2/4 distal pulses bilaterally. Neuro: Oriented to person, place and time, alert, cooperative, gait coordinated. Left subclavian device site: clean, dry and intact with no drainage, signs of infection, erythema or erosion CARDIOVASC (more content not included)... Normal [facility] [id number] 07-14-2024 ECG01 Ventricular Rate : 9 7 BPM Atrial Rate : 97 BPM P-R Interval : 132 ms QRS Duration : 154 ms Q-T Interval : 380 ms QTC Calculation(Bazett) : 482 ms Calculated P Tennille : 21 degrees Calculated R Tennille : -85 degrees Calculated T Tennille : 72 degrees ATRIAL-SENSED VENTRICULAR-PACED RHYTHM WITH FREQUENT PREMATURE VENTRICULAR COMPLEXES ABNORMAL ECG Confirmed by EVELYN SEXTON MD ([id number]) on 07/16/2024 4:27:36 PM NAME : RUFINO COLLINS PID : [id number] : 1940 Gender : Female Race : ORD : Procedure Date : Jul 14 2024 12:00:35 Edit Date : Jul 16 2024 16:28:51 Diagnosis: ATRIAL-SENSED VENTRICULAR-PACED RHYTHM WITH FREQUENT PREMATURE VENTRICULAR COMPLEXES ABNORMAL ECG Confirmed by EVELYN SEXTON MD ([id number]) on 07/16/2024 4:27:36 PM Test Reason : Location : 192 : AVCRD Overread By : EVELYN SEXTON MD Edited By : EVELYN SEXTON MD Referred By : TAMRA GREWAL Acquired by : , Normal [facility] Glucose mean value [Mass/vol ume] in Blood Estimated from glycated hemoglobinon 07-09-2024 Average glucose Estimated from glycated hemoglobin (Bld) [Mass/Vol] Glucose mean value [Mass/volume] in Blood Estimated from glycated hemoglobin [facility] Hemoglobin A1c percentageon 07-09-2024 HbA1c (Bld) [Mass fraction] Hemoglobin A1c percentage 4.5-6.2 [facility] Comment on above: ADA RECOMMENDED LIMI T 4.0 - 6.0ADA THERAPEUTIC TARGET < 7.0ACTION SUGGESTED> 7.0 Urine Cultureon 07-09-2024 Bacteria identified Cx Nom (U) 50,000 colonies/ml mixed bacterial skin contaminants 2 Days PERFORMED BY: [place] [address] PATHOLOGIST SIGNAL WORKER HELPER CESAR GRIJALVA M.D. Normal [facility] Comment on above: Performed By: #### C UU #### [address] Urine cultureOrdered By: Jeremias Rajan on 07-09-2024 Bacteria identified Cx Nom (U) Urine culture [facility] Laboratory - Chemistry and C hemistry - challengeon 07-01-2024 Bilirubin Ql (U) Negative [facility] Glucose (U) [Mass/Vol] [facility] Ketones Ql (U) Negative [facility] pH (U) 5.0 [pH] [facility] Specific gravity (U) [Rel density] 1.010 [facility] Urobilinogen (U) [Mass/Vol] 0.2 mg/dL [facility] Laboratory - Specimen inform ationon 07-01-2024 Appearance (U) cloudy [facility] Color (U) yellow [facility] Laboratory - Urinalysison Leukocyte esterase Test strip Ql (U) +++ [facility] Nitrite Ql (U) Negative [facility] Protein Ql (U) ++ [facility] No Panel Informationon 07-01 Urine Occult Blood +++ [facility] CNOVon 02-20-2024 CNOV Office Visit (NEURAV ) RUFINO COLLINS ([id number]) 1940 F Date Time Provider Department 02/20/24 [...] mg- 300 mcg tab Take by mouth. loratadine-pseudoephedr ine ER (CLARITIN-D 24) 10-240 mg Tb24 Take [...] symmetric, a (more content not included)... Normal [facility] RUFIN[facility] COLL[facility] ([id number]) 1940 F Date Time Provider Department 02/16/24 TAMRA GREWAL CARABIA During your visit today, we recorded the [...] know/ went to hospital on Friday at [facility] and had an EKG done and HR was 88 bpm but told by pcp everything was ok. Has an upcoming appointment for device check and provider appointment with cardiology on 04/19/24 Asking if anything showed up on monitor or if she should be concerned and can go about her activities (bike riding, etc) Pt can be reached at: [phone], ok to leave a message Alla Cuenca RN 02/16/2024 4:25 PM Signed Routing to the pacer clinic Yadira Burnett RN 02/16/2024 5:06 PM Signed Spoke with patient. Device has not connected recently. Attempted to trouble shoot several ways. Unable to get transmission to send. Gave number to [employer] to call and have them help troubleshoot monitor. Casandra Lambert 02/17/2024 9:22 AM Signed Patient called back. Reached out to [employer] and was told that the device is now connected. Please follow up with device readings and advise. Patient reports feeling well and does not report any symptoms at this time. Isamar Ríos RN 02/18/2024 8:46 AM Signed Pt calling Checking on message below asking if anything showed up about irregular heart rate States not her b/p monitor is not showing an irregular heart rate Also asking how she would know if her device is not connected Pt can be reached at: [phone], ok to leave a detailed message Mahsa [...] having a heart attack w/ Avelox PERCOCET (OXYCODONE-ACETAMINOPHE N)12/02/2006 5 - Intolerance Comments: Drops BP CAPSAICIN [...] tablet by mouth four times daily. - Acetaminophen-Caffeine (TENSION HEADACHE PAIN RELIEVER) 500-65 mg [...] 2 capsules by mouth once daily. 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] 02/26/2015 Bradycardia [R00.1] 02/26/2015 Pulmonary embolus (HCC) [I26.99] 03/02/2015 Dysthymia [F34.1] 07/22/2016 Carpal tunnel syndrome of right wrist [G56.01] 05/30/2020 Encounter Status:Closed by YADIRA BURNETT on 02/16/24 [facility] Telephone (TOMN) RUFINO COLLINS ([id number]) 1940 F Date Time Provider Department 02/14/24 [facility] During your visit today, we recorded the [...] having a heart attack w/ Avelox PERCOCET (OXYCODONE-ACETAMINOPHE N)12/02/2006 5 - Intolerance Comments: Drops BP CAPSAICIN [...] tablet by mouth four times daily. - Acetaminophen-Caffeine (TENSION HEADACHE PAIN RELIEVER) 500-65 mg [...] 2 capsules by mouth once daily. 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] 02/26/2015 Bradycardia [R00.1] 02/26/2015 Pulmonary embolus (HCC) [I26.99] 03/02/2015 Dysthymia [F34.1] 07/22/2016 Carpal tunnel syndrome of right wrist [G56.01] 05/30/2020 Encounter Status:Closed by GURPREET CRUZ on 02/14/24 Normal [facility] Glucose mean value [Mass/vol ume] in Blood Estimated from glycated hemoglobinon 11-14-2023 Average glucose Estimated from glycated hemoglobin (Bld) [Mass/Vol] 169 mg/dL [facility] Laboratory - Hematology and Cell countson 11-14-2023 HbA1c (Bld) [Mass fraction] 7.5 % High 4.5-6.2 [facility] Comment on above: ADA RECOMMENDED LIMI T 4.0 - 6.0ADA THERAPEUTIC TARGET < 7.0ACTION SUGGESTED> 7.0 Estimated glomerular filtrat ion rate (GFR) non- Americanon 07-08-2023 GFR/1.73 sq M.predicted among non-blacks MDRD (S/P/Bld) [Vol rate/Area] 53 mL/min/{1.73_m2} >=60 [facility] Glucose mean value [Mass/vol ume] in Blood Estimated from glycated hemoglobinon 07-08-2023 Average glucose Estimated from glycated hemoglobin (Bld) [Mass/Vol] 157 mg/dL [facility] Laboratory - Chemistry and C hemistry - challengeon 07-08-2023 Calcium [Mass/Vol] 9.7 mg/dL 8.5-10.1 [facility] Chloride [Moles/Vol] 101 mmol/L 98-107 [facility] CO2 [Moles/Vol] 31.6 mmol/L 21.0-32.0 [facility] Creatinine [Mass/Vol] 1.00 mg/dL 0.55-1.02 [facility] GFR/1.73 sq M.predicted MDRD (S/P/Bld) [Vol rate/Area] mL/min/{1.73_m2} >=60 [facility] Glucose [Mass/Vol] 141 mg/dL 74-106 [facility] Potassium [Moles/Vol] 4.2 mmol/L 3.5-5.1 [facility] Sodium [Moles/Vol] 140 mmol/L 136-145 [facility] Urea nitrogen [Mass/Vol] 28.0 mg/dL 7.0-18.0 [facility] Urea nitrogen/Creatinine [Mass ratio] 28.0 mg/mg [facility] Laboratory - Hematology and Cell countson 07-08-2023 HbA1c (Bld) [Mass fraction] 7.1 % 4.5-6.2 [facility] Comment on above: ADA RECOMMENDED LIMI T 4.0 - 6.0ADA THERAPEUTIC TARGET < 7.0ACTION SUGGESTED> 7.0 Serum or plasma anion gap de terminationon 07-08-2023 Anion gap [Moles/Vol] 11.6 mmol/L [facility] No Panel Informationon 07-06 BLANK _ [facility] Implant Date 02/27/2015 [facility] Model 2088TC Tendril STS [facility] PACEMAKER REMOTE CHECKon AV Delay Adaptive Paced Minimum (ms) 150 ms [facility] AV Delay Adaptive Sensed Minimum (ms) 130 ms [facility] AV Delay Paced (ms) 100 ms [facility] [facility] Delay Sensed (ms) 100 ms [facility] Battery Voltage (volts) 2.87 V [facility] Dirk RA Pacing Amplitude (volts) 2.0 V [facility] Dirk RA Pacing Polarity BI [facility] Dirk RA Pacing Pulse Width (ms) 0.5 ms [facility] Dirk RA Sensing Amplitude (mvolts) 0.4 mV [facility] Dirk RA Sensing Polarity BI [facility] Dirk RV Pacing Amplitude (volts) 1.625 [facility] Dirk RV Pacing Polarity BI [facility] Dirk RV Pacing Pulse Width (ms) 0.5 ms [facility] Dirk RV Sensing Amplitude (mvolts) 2.0 mV [facility] Dirk RV Sensing Polarity BI [facility] Lead1 Mfg STJ [facility] Lead2 Mfg STJ [facility] Location RA [facility] Location RV [facility] Lower Rate (bpm) 60 {beats}/min [facility] Rate (bmp) 120 {beats}/min [facility] Model 2240 Assurity [facility] Pacing Mode DDD [facility] PM-Device Mfg STJ [facility] PM-Percent Pacing (A) 6.4 % [facility] PM-Percent Pacing (V) 99.0 % [facility] RA Bipolar Impedance ohms 450 ohm [facility] RV Bipolar Impedance ohms 890 ohm [facility] Serial Number [id number] [facility] Serial Number [id number] [facility] Serial Number [id number] [facility] Thresh RA Capture Amplitude (volts) 1.0 V [facility] Thresh RA Capture Duration (ms) 0.5 ms [facility] Thresh RA Sensing Amplitude (mvolts) 0.9 mV [facility] Thresh RV Capture Amplitude (volts) 1.375 V [facility] Thresh RV Capture Duration (ms) 0.5 ms [facility] Thresh RV Sensing Amplitude (mvolts) 12.0 mV [facility] Tracking Rate (bpm) 120 {beats}/min [facility] Urinalysis - AUTOMATEDon Appearance (U) cloudy [employer] Other Bilirubin Ql (U) Negative [employer] Other Color (U) bright orange [employer] Other Glucose Ql (U) 100 [employer] Other Hemoglobin Ql (U) small [employer] Other Ketones Ql (U) Negative [employer] Other Leukocyte esterase Test strip Ql (U) large [employer] Other Nitrite Ql (U) Positive [employer] Other pH (U) 5.0 [pH] [employer] Other Protein Ql (U) 100 [employer] Other Specific gravity (U) [Rel density] >=1.030 [employer] Other Urobilinogen (U) [Mass/Vol] 1.0 mg/dL [employer] Other Urinalysis - AUTOMATED No rth [employer] Other Urine Cultureon 05-03-2023 Urine Culture >100,000 [employer] Other Bacteria identified Cx Nom (U) [employer] Other No Panel Informationon 04-16 BLANK _ [facility] Implant Date 02/27/2015 [facility] Model 2088TC Tendril STS [facility] PACEMAKER CLINIC CHECKon AMS Fallback Rate (bpm) 70 {beats}/min [facility] AV Delay Adaptive Paced Minimum (ms) 150 ms [facility] AV Delay Adaptive Rate Maximum (bpm) 120 {beats}/min [facility] AV Delay Adaptive Rate Minimum (bpm) 90 {beats}/min [facility] AV Delay Adaptive Sensed Minimum (ms) 130 ms [facility] AV Delay Adaptive Status Medium [facility] AV Delay Paced (ms) 100 ms [facility] AV Delay Sensed (ms) 100 ms [facility] Battery Voltage (volts) 2.89 V [facility] Dirk RA Pacing Amplitude (volts) 2.0 V [facility] Dirk RA Pacing Polarity BI [facility] Dirk RA Pacing Pulse Width (ms) 0.5 ms [facility] Dirk RA Sensing Blanking Period (ms) 150 ms [facility] Dirk RA Sensing Polarity BI [facility] Dirk RA Sensing Refractory Period (ms) 190 ms [facility] Dirk RV Pacing Amplitude (volts) 1.375 [facility] Dirk RV Pacing Polarity BI [facility] Dirk RV Pacing Pulse Width (ms) 0.5 ms [facility] Dirk RV Sensing Amplitude (mvolts) 2.0 mV [facility] Dirk RV Sensing Blanking Period (ms) 44 ms [facility] Dirk RV Sensing Polarity BI [facility] Dirk RV Sensing Refractory Period (ms) 250 ms [facility] Hysteresis Rate (bpm) Off [facility] Lead1 Mfg STJ [facility] Lead2 Mfg STJ [facility] Location RA [facility] Location RV [facility] Lower Rate (bpm) 60 {beats}/min [facility] Max Sensor Rate (bmp) 120 {beats}/min [facility] Model 2240 Assurity [facility] Pacemaker Dependent? YES [facility] Pacing Mode DDD [facility] PM-Device Mfg STJ [facility] PM-Percent Pacing (A) 6.3 % [facility] PM-Percent Pacing (V) 99.96 % [facility] PM-PMT Intervention Atrial Pace [facility] PM-PVC Intervention Off [facility] PM-Rate Modulation Acceleration Reaction Fast [facility] PM-Rate Modulation Deceleration Medium [facility] PM-Rate Modulation [place] Auto (+2) [facility] PM-Rate Modulation Threshold Auto (+0.0) [facility] Rhythm Sinus rhythm with complete heart block [facility] Serial Number [id number] [facility] Serial Number [id number] [facility] Serial Number [id number] [facility] Thresh RA Capture Amplitude (volts) 1.0 V [facility] Thresh RA Capture Duration (ms) 0.5 ms [facility] Thresh RA Sensing Amplitude (mvolts) 0.7 mV [facility] Thresh RV Capture Amplitude (volts) 1.25 V [facility] Thresh RV Capture Duration (ms) 0.5 ms [facility] Thresh RV Sensing Amplitude (mvolts) 12.0 mV [facility] Tracking Rate (bpm) 120 {beats}/min [facility] UA RANDOM W/MICROSCOPICon Clarity (U) CLEAR CLEAR [employer] Other Color (U) DK. ORANGE YELLOW [employer] Other Ketones Ql (U) COLOR INTERFERENCE mg/dL Abnormal NEGATIVE mg/dL [employer] Other Leukocyte esterase Test strip Ql (U) COLOR INTERFERENCE Abnormal NEGATIVE [employer] Other UA RANDOM W/MICROSCOPIC 20-50 #/HPF Abnormal NONE SEEN #/HPF [employer] Other UA RANDOM W/MICROSCOPIC 5-10 #/HPF Abnormal 0-2 #/HPF [employer] Other UA RANDOM W/MICROSCOPIC see note [employer] Other UA RANDOM W/MICROSCOPIC 1.010 1.005-1.025 [employer] Other UA RANDOM W/MICROSCOPIC COLOR INTERFERENCE Abnormal NEGATIVE [employer] Other UA RANDOM W/MICROSCOPIC COLOR INTERFERENCE mg/dL Abnormal NEGATIVE mg/dL [employer] Other UA RANDOM W/MICROSCOPIC COLOR INTERFERENCE EU/dL Abnormal 0.2-1.0 EU/dL [employer] Other UA RANDOM W/MICROSCOPIC SMALL #/HPF Abnormal NONE SEEN #/HPF [employer] Other UA RANDOM W/MICROSCOPIC NONE SEEN NONE SEEN [employer] Other UA RANDOM W/MICROSCOPIC FEW #/LPF Abnormal NONE/RARE #/LPF [employer] Other UA RANDOM W/MICROSCOPIC Seen #/HPF Abnormal None Seen #/HPF [employer] Other UA RANDOM W/MICROSCOPIC NONE SEEN #/LPF NONE SEEN #/LPF [employer] Other UA RANDOM W/MICROSCOPIC RARE [employer] Other UA RANDOM W/MICROSCOPIC ALREADY ORDERED [employer] Other No Panel Informationon 04-05 BLANK _ [facility] Implant Date 02/27/2015 [facility] Model 2088TC Tendril ST[facility] PACEMAKER REMOTE CHECKon AV Delay Adaptive Paced Minimum (ms) 150 ms [facility] AV Delay Adaptive Sensed Minimum (ms) 130 ms [facility] AV Delay Paced (ms) 100 ms [facility] AV Delay Sensed (ms) 100 ms [facility] Battery Voltage (volts) 2.89 V [facility] Dirk RA Pacing Amplitude (volts) 1.875 [facility] Dirk RA Pacing Polarity BI [facility] Dirk RA Pacing Pulse Width (ms) 0.5 ms [facility] Dirk RA Sensing Amplitude (mvolts) 0.4 mV [facility] Dirk RA Sensing Polarity BI [facility] Dirk RV Pacing Amplitude (volts) 1.375 [facility] Dirk RV Pacing Polarity BI [facility] Dirk RV Pacing Pulse Width (ms) 0.5 ms [facility] Dirk RV Sensing Amplitude (mvolts) 2.0 mV [facility] Dirk RV Sensing Polarity BI [facility] Lead1 Mfg STJ [facility] Lead2 Mfg STJ [facility] Location RA [facility] Location RV [facility] Lower Rate (bpm) 60 {beats}/min [facility] Max Sensor Rate (bmp) 120 {beats}/min [facility] Model 2240 Assurity [facility] Pacing Mode DDD [facility] PM-Device Mfg STJ [facility] PM-Percent Pacing (A) 7.7 % [facility] PM-Percent Pacing (V) 99.0 % [facility] RA Bipolar Impedance ohms 480 ohm [facility] RV Bipolar Impedance ohms 930 ohm [facility] Serial Number [id number] [facility] Serial Number [id number] [facility] Serial Number [id number] [facility] Thresh RA Capture Amplitude (volts) 0.875 V [facility] Thresh RA Capture Duration (ms) 0.5 ms [facility] Thresh RA Sensing Amplitude (mvolts) 0.5 mV [facility] Thresh RV Capture Amplitude (volts) 1.125 V [facility] Thresh RV Capture Duration (ms) 0.5 ms [facility] Thresh RV Sensing Amplitude (mvolts) 12.0 mV [facility] Tracking Rate (bpm) 120 {beats}/min [facility] Urinalysis - DIPSTICKon 02-09 Appearance (U) clear [employer] Other Bilirubin Ql (U) Negative [employer] Other Color (U) yellow [employer] Other Glucose Ql (U) Negative [employer] Other Hemoglobin Ql (U) Negative [employer] Other Ketones Ql (U) Negative [employer] Other Leukocyte esterase Test strip Ql (U) + [employer] Other Nitrite Ql (U) Negative [employer] Other pH (U) 5.0 [pH] [employer] Other Protein Ql (U) Negative [employer] Other Specific gravity (U) [Rel density] 1.015 [employer] [facility] Other Urobilinogen (U) [Mass/Vol] off chart [employer] Other Urinalysis - DIPSTICK Nor [employer] Other No Panel Informationon 01-30 BLANK _ [facility] Implant Date 02/27/2015 [facility] Model 2088TC Tendril STS [facility] PACEMAKER REMOTE CHECKon AV Delay Adaptive Paced Minimum (ms) 150 ms [facility] AV Delay Adaptive Sensed Minimum (ms) 130 ms [facility] AV Delay Paced (ms) 100 ms [facility] AV Delay Sensed (ms) 100 ms [facility] Battery Voltage (volts) 2.9 V [facility] Dirk RA Pacing Amplitude (volts) 2.0 V [facility] Dirk RA Pacing Polarity BI [facility] Dirk RA Pacing Pulse Width (ms) 0.5 ms [facility] Dirk RA Sensing Amplitude (mvolts) 0.4 mV [facility] Dirk RA Sensing Polarity BI [facility] Dirk RV Pacing Amplitude (volts) 1.75 V [facility] Dirk RV Pacing Polarity BI [facility] Dirk RV Pacing Pulse Width (ms) 0.5 ms [facility] Dirk RV Sensing Amplitude (mvolts) 2.0 mV [facility] Dirk RV Sensing Polarity BI [facility] Lead1 Mfg STJ [facility] Lead2 Mfg STJ [facility] Location RA [facility] Location RV [facility] Lower Rate (bpm) 60 {beats}/min [facility] Max Sensor Rate (bmp) 120 {beats}/min [facility] Model 2240 Assurity [facility] Pacing Mode DDD [facility] PM-Device Mfg STJ [facility] PM-Percent Pacing (A) 5.8 % [facility] PM-Percent Pacing (V) 99.0 % [facility] RA Bipolar Impedance ohms 460 ohm [facility] RV Bipolar Impedance ohms 940 ohm [facility] Serial Number [id number] [facility] Serial Number [id number] [facility] Serial Number [id number] [facility] Thresh RA Capture Amplitude (volts) 1.0 V [facility] Thresh RA Capture Duration (ms) 0.5 ms [facility] Thresh RA Sensing Amplitude (mvolts) 1.5 mV [facility] Thresh RV Capture Amplitude (volts) 1.5 V [facility] Thresh RV Capture Duration (ms) 0.5 ms [facility] Thresh RV Sensing Amplitude (mvolts) 12.0 mV [facility] Tracking Rate (bpm) 120 {beats}/min [facility] No Panel Informationon 01-22 BLANK _ [facility] Implant Date 02/27/2015 [facility] Model 2088TC Tendril STS [facility] PACEMAKER REMOTE CHECKon AV Delay Adaptive Paced Minimum (ms) 150 ms [facility] AV Delay Adaptive Sensed Minimum (ms) 130 ms [facility] AV Delay Paced (ms) 100 ms [facility] AV Delay Sensed (ms) 100 ms [facility] Battery Voltage (volts) 2.9 V [facility] Dirk RA Pacing Amplitude (volts) 2.0 V [facility] Dirk RA Pacing Polarity BI [facility] Dirk RA Pacing Pulse Width (ms) 0.5 ms [facility] Dirk RA Sensing Amplitude (mvolts) 0.4 mV [facility] Dirk RA Sensing Polarity BI [facility] Dirk RV Pacing Amplitude (volts) 1.625 [facility] Dirk RV Pacing Polarity BI [facility] Dirk RV Pacing Pulse Width (ms) 0.5 ms [facility] Dirk RV Sensing Amplitude (mvolts) 2.0 mV [facility] Dirk RV Sensing Polarity BI [facility] Lead1 Mfg J [facility] Lead2 Mfg STJ [facility] Location RA [facility] Location RV [facility] Lower Rate (bpm) 60 {beats}/min [facility] Max Sensor Rate (bmp) 120 {beats}/min [facility] Model 2240 Assurity [facility] Pacing Mode DDD [facility] PM-Device Mfg STJ [facility] PM-Percent Pacing (A) 5.4 % [facility] PM-Percent Pacing (V) 99.0 % [facility] RA Bipolar Impedance ohms 460 ohm [facility] RV Bipolar Impedance ohms 860 ohm [facility] Serial Number [id number] [facility] Serial Number [id number] [facility] Serial Number [id number] [facility] Thresh RA Capture Amplitude (volts) 1.0 V [facility] Thresh RA Capture Duration (ms) 0.5 ms [facility] Thresh RA Sensing Amplitude (mvolts) 0.7 mV [facility] Thresh RV Capture Amplitude (volts) 1.375 V [facility] Thresh RV Capture Duration (ms) 0.5 ms [facility] Thresh RV Sensing Amplitude (mvolts) 12.0 mV [facility] Tracking Rate (bpm) 120 {beats}/min [facility] No Panel Informationon 10-09 BLANK _ [facility] Implant Date 02/27/2015 [facility] Model 2088TC Tendril STS [facility] PACEMAKER REMOTE CHECKon AV Delay Adaptive Paced Minimum (ms) 150 ms [facility] AV Delay Adaptive Sensed Minimum (ms) 130 ms [facility] AV Delay Paced (ms) 100 ms [facility] AV Delay Sensed (ms) 100 ms [facility] Battery Voltage (volts) 2.9 V [facility] Dirk RA Pacing Amplitude (volts) 2.0 V [facility] Dirk RA Pacing Polarity BI [facility] Dirk RA Pacing Pulse Width (ms) 0.5 ms [facility] Dirk RA Sensing Amplitude (mvolts) 0.4 mV [facility] Dirk RA Sensing Polarity BI [facility] Dirk RV Pacing Amplitude (volts) 1.5 V [facility] Dirk RV Pacing Polarity BI [facility] Dirk RV Pacing Pulse Width (ms) 0.5 ms [facility] Dirk RV Sensing Amplitude (mvolts) 2.0 mV [facility] Dirk RV Sensing Polarity BI [facility] Lead1 Mfg STJ [facility] Lead2 Mfg STJ [facility] Location RA [facility] Location RV [facility] Lower Rate (bpm) 60 {beats}/min [facility] Max Sensor Rate (bmp) 120 {beats}/min [facility] Model 2240 Assurity [facility] Pacing Mode DDD [facility] PM-Device Mfg STJ [facility] PM-Percent Pacing (A) 5.1 % [facility] PM-Percent Pacing (V) 99.0 % [facility] RA Bipolar Impedance ohms 460 ohm [facility] RV Bipolar Impedance ohms 860 ohm [facility] Serial Number [id number] [facility] Serial Number [id number] [facility] Serial Number [id number] [facility] Thresh RA Capture Amplitude (volts) 1.0 V [facility] Thresh RA Capture Duration (ms) 0.5 ms [facility] Thresh RA Sensing Amplitude (mvolts) 0.5 mV [facility] Thresh RV Capture Amplitude (volts) 1.25 V [facility] Thresh RV Capture Duration (ms) 0.5 ms [facility] Thresh RV Sensing Amplitude (mvolts) 12.0 mV [facility] Tracking Rate (bpm) 120 {beats}/min [facility] APTTon 07-12-2022 aPTT Coag (Bld) [Time] 29.9 s [facility] Comment on above: Effective 03/15/2020: Heparin Therapeutic Range: 64.0 98.0 seconds. Brain Natriuretic Peptideon 07-12-2022 Natriuretic peptide B (Bld) [Mass/Vol] 265 pg/mL [facility] Comment on above: NT-pro BNP ACUTE [...] Basophils (Bld) [#/Vol] 0.1 10*3/uL Normal 0.0-0.2 [facility] Comment on above: Performed By: #### C BCWD #### [facility] [address] [place] [address] Basophils/100 WBC (Bld) 1.3 % Normal [facility] Comment on above: Performed By: #### C BCWD #### [facility] [address] [facility] [address] Eosinophils (Bld) [#/Vol] 0.1 10*3/uL Normal 0.0-0.7 [facility] Comment on above: Performed By: #### C BCWD #### [facility] [address] [place] [address] Eosinophils/100 WBC (Bld) 1.7 % Normal [facility] Comment on above: Performed By: #### C BCWD #### [facility] [address] [place] [address] Erythrocyte distribution width (RBC) [Ratio] 14.0 % Normal 11.5-14.5 [facility] Comment on above: Performed By: #### C BCWD #### [facility] [address] [place] [address] Hematocrit (Bld) [Volume fraction] 43.9 % Normal 37.0-47.0 [facility] Comment on above: Performed By: #### C BCWD #### [facility] [address] [place] [address] Hemoglobin (Bld) [Mass/Vol] 14.7 g/dL Normal 12.0-16.0 [facility] Comment on above: Performed By: #### C BCWD #### [facility] [address] [place] [address] Lymphocytes (Bld) [#/Vol] 2.6 10*3/uL Normal 1.0-4.8 [facility] Comment on above: Performed By: #### C BCWD #### [facility] [address] [place] [address] Lymphocytes/100 WBC (Bld) 35.3 % Normal [facility] Comment on above: Performed By: #### C BCWD #### [facility] [address] [place] [address] MCH (RBC) [Entitic mass] 29.8 pg Normal 27.0-31.3 [facility] Comment on above: Performed By: #### C BCWD #### [facility] [address] [place] [address] MCHC 33.4 % Normal 33.0-37.0 [facility] Comment on above: Performed By: #### C BCWD #### [facility] [address] [place] [address] MCV (RBC) [Entitic vol] 89.3 fL Normal 79.4-94.8 [facility] Comment on above: Performed By: #### C BCWD #### [facility] [address] [place] [address] Monocytes (Bld) [#/Vol] 0.6 10*3/uL Normal 0.2-0.8 [facility] Comment on above: Performed By: #### C BCWD #### [facility] [address] [place] [address] Monocytes/100 WBC (Bld) 8.4 % Normal [facility] Comment on above: Performed By: #### C BCWD #### [facility] [address] [place] [address] Neutrophils (Bld) [#/Vol] 4.0 10*3/uL Normal 1.4-6.5 [facility] Comment on above: Performed By: #### C BCWD #### [facility] [address] [place] [address] Neutrophils/100 WBC (Bld) 53.3 % Normal [facility] Comment on above: Performed By: #### C BCWD #### [facility] [address] [place] [address] Platelets (Bld) [#/Vol] 238 10*3/uL Normal 130-400 [facility] Comment on above: Performed By: #### C BCWD #### [facility] [address] [place] [address] RBC (Bld) [#/Vol] 4.91 10*6/uL Normal 4.20-5.40 [facility] Comment on above: Performed By: #### C BCWD #### [facility] [address] [place] [address] WBC (Bld) [#/Vol] 7.4 10*3/uL Normal 4.8-10.8 [facility] Comment on above: Performed By: #### C BCBERNADINE #### [facility] [address] [place] [address] CBC with Auto Differentialon 07-12-2022 Basophils (Bld) [#/Vol] 0.1 10*3/uL 0.0 - 0.2 K/uL [facility] Basophils/100 WBC (Bld) 1.3 % [facility] Eosinophils (Bld) [#/Vol] 0.1 10*3/uL 0.0 - 0.7 K/uL [facility] Eosinophils/100 WBC (Bld) 1.7 % [facility] Hematocrit (Bld) [Volume fraction] 43.9 % 37.0 - 47.0 % [facility] Hemoglobin (Bld) [Mass/Vol] 14.7 g/dL 12.0 - 16.0 g/dL [facility] Lymphocytes (Bld) [#/Vol] 2.6 10*3/uL 1.0 - 4.8 K/uL [facility] Lymphocytes/100 WBC (Bld) 35.3 % [facility] MCH (RBC) [Entitic mass] 29.8 pg 27.0 - 31.3 pg [facility] MCHC (RBC) [Mass/Vol] 33.4 % 33.0 - 37.0 % [facility] MCV (RBC) [Entitic vol] 89.3 fL 79.4 - 94.8 fL [facility] Monocytes (Bld) [#/Vol] 0.6 10*3/uL 0.2 - 0.8 K/uL [facility] Monocytes/100 WBC (Bld) 8.4 % [facility] Neutrophils Absolute 4.0 K/uL 1.4 - 6 .5 K/uL [facility] Neutrophils/100 WBC (Bld) 53.3 % [facility] Platelet distribution width (Bld) [Ratio] 14.0 % 11.5 - 14.5 % [facility] Platelets (Bld) [#/Vol] 238 10*3/uL 130 - 400 K/uL [facility] RBC (Bld) [#/Vol] 4.91 10*6/uL [facility] WBC (Bld) [#/Vol] 7.4 10*3/uL 4.8 - 10.8 K/uL [facility] CKon 07-12-2022 CK [Catalytic activity/Vol] 29 U/L 0 - 170 U/L [facility] Comprehensive Metabolic Pane evens 07-12-2022 Anion gap [Moles/Vol] 11 mmol/L Normal 9-15 [facility] Comment on above: Performed By: #### C BCWD #### [facility] [address] [place] [address] Chloride [Moles/Vol] 102 mmol/L Normal 95-107 [facility] Comment on above: Performed By: #### C BCWD #### [facility] [address] [place] [address] Potassium [Moles/Vol] 4.3 mmol/L Normal 3.4-4.9 [facility] Comment on above: Performed By: #### C BCWD #### [facility] [address] [place] [address] Sodium [Moles/Vol] 139 mmol/L Normal 135-144 [facility] Comment on above: Performed By: #### C BCWD #### [facility] [address] [place] [address] Albumin [Mass/Vol] 3.9 g/dL Normal 3.5-4.6 [facility] Comment on above: Performed By: #### C BCWD #### [facility] [address] [place] [address] ALP [Catalytic activity/Vol] 81 U/L Normal 40-130 [facility] Comment on above: Performed By: #### C BCWD #### [facility] [address] [place] [address] ALT [Catalytic activity/Vol] 10 U/L Normal 0-33 [facility] Comment on above: Performed By: #### C BCWD #### [facility] [address] [place] [address] AST [Catalytic activity/Vol] 14 U/L Normal 0-35 [facility] Comment on above: Performed By: #### C BCWD #### [facility] [address] [place] [address] Bilirubin [Mass/Vol] 0.3 mg/dL Normal 0.2-0.7 [facility] Comment on above: Performed By: #### C BCWD #### [facility] [address] [place] [address] Calcium [Mass/Vol] 9.6 mg/dL Normal 8.5-9.9 [facility] Comment on above: Performed By: #### C BCWD #### [facility] [address] [place] [address] CO2 [Moles/Vol] 26 mmol/L Normal 20-31 [facility] Comment on above: Performed By: #### C BCWD #### [facility] [address] [place] [address] Creatinine [Mass/Vol] 0.78 mg/dL Normal 0.50-0.90 [facility] Comment on above: Performed By: #### C BCWD #### [facility] [address] [place] [address] GFR >60.0 Normal >60 [facility] Comment on above: Result Comment: Pedi atric calculator link [email or web address].kidney.org/professionals/kdoqi/gfr_[email or web address] Effective Feb 11, [...] secretion. Performed By: #### C BCWD #### [facility] [address] [place] [address] Globulin (S) [Mass/Vol] 3.1 g/dL Normal 2.3-3.5 [facility] Comment on above: Performed By: #### C BCWD #### [facility] [address] [place] [address] Glucose [Mass/Vol] 135 mg/dL Critically high 70-[address] [facility], [place]) Comment on above: Performed By: #### C BCWD #### [facility] [address] [place] [address] Protein [Mass/Vol] 7.0 g/dL Normal 6.3-8.0 [facility] Comment on above: Performed By: #### C BCWD #### [facility] [address] [place] [address] Urea nitrogen [Mass/Vol] 14 mg/dL Normal 8-23 [facility] Comment on above: Performed By: #### C BCWD #### [facility] [address] [place] [address] Albumin [Mass/Vol] 3.9 g/dL 3.5 - 4.6 g/dL [facility] ALP (Bld) [Catalytic activity/Vol] 81 U/L 40 - 130 U/L [facility] ALT [Catalytic activity/Vol] 10 U/L 0 - 33 U/L [facility] Anion gap [Moles/Vol] 11 mmol/L [facility] AST [Catalytic activity/Vol] 14 U/L 0 - 35 U/L [facility] Bilirubin [Mass/Vol] 0.3 mg/dL 0.2 - 0 .7 mg/dL [facility] Calcium [Mass/Vol] 9.6 mg/dL 8.5 - 9.9 mg/dL [facility] Chloride [Moles/Vol] 102 mmol/L [facility] CO2 [Moles/Vol] 26 mmol/L [facility] Creatinine [Mass/Vol] 0.78 mg/dL 0.50 - 0.90 mg/dL [facility] GFR/1.73 sq M.predicted MDRD (S/P/Bld) [Vol rate/Area] 60 - PINF [facility] Comment on above: Pediatric calculator link [...] [Mass/Vol] 3.1 g/dL 2.3 - 3.5 g/dL [facility] Glucose [Mass/Vol] 135 mg/dL High 70 - 99 mg/dL [facility] Interpretation and review of laboratory results Abnormal [facility] Potassium [Moles/Vol] 4.3 mmol/L [facility] Protein [Mass/Vol] 7.0 g/dL 6.3 - 8.0 g/dL [facility] Sodium [Moles/Vol] 139 mmol/L [facility] Urea nitrogen (BldV) [Mass/Vol] 14 mg/dL 8 - 23 mg/dL [facility] Creatine Kinaseon 07-12-2022 CK [Catalytic activity/Vol] 29 U/L Normal 0-170 [facility] Comment on above: Performed By: #### C PK #### [facility] [address] [place] [address] Culture, Bloodon 07-12-2022 Microscopic examination of blood, culture ORDER#: [id number] ORDERED BY: KM JASON SOURCE: Blood COLLECTED: 07/12/22 16:42 ANTIBIOTICS AT KASHIF.: RECEIVED : 07/12/22 17:12 Culture, Blood FINAL 07/17/22 20:15 No growth after 5 days of incubation. Normal [facility] Comment on above: Performed By: #### C XBL #### [facility] [address] [place] [address] Culture, Blood 2on 3 Culture, Blood 2 ORDER#: [id number] ORDERED BY: KM JASON SOURCE: Blood COLLECTED: 07/12/22 16:42 ANTIBIOTICS AT KASHIF.: RECEIVED : 07/12/22 17:12 Culture, Blood 2 FINAL 07/17/22 20:15 No growth after 5 days of incubation. [facility] Comment on above: Performed By: #### C XBL2 #### [facility] [address] [place] [address] High Sensitivity CRPon 07-12 High Sensitivity CRP 8.9 mg/L Critically high 0.0-5.0 [facility] Comment on above: Performed By: #### H SCRP #### [facility] [address] [place] [address] High sensitivity CRPon 07-12 CRP High Sensitivity 8.9 mg/L High 0.0 - 5 .0 mg/L [facility] Interpretation and review of laboratory results Abnormal [facility] Lactic Acidon 07-12-2022 Lactate [Moles/Vol] 1.0 mmol/L Normal 0.5-2.2 [facility] Comment on above: Performed By: #### L ACID #### [facility] [address] [place] [address] Lactate [Moles/Vol] 1 mmol/L 0.5 - 2. 2 mmol/L [facility] Magnesiumon 07-12-2022 Magnesium [Mass/Vol] 1.9 mg/dL Normal 1.7-2.4 [facility] Comment on above: Performed By: #### C BCWD #### [facility] [address] [place] [address] Magnesium [Mass/Vol] 1.9 mg/dL 1.7 - 2 .4 mg/dL [facility] Microscopic Urinalysison Bacteria, UA Negative Negative /HPF [facility] Epithelial Cells, UA 0-2 [facility] Hyaline Casts, UA 0-1 [facility] RBC, UA 0-[address] [facility] WBC, UA 0-[address] [facility] No Panel Informationon 07-12 [facility] Partial Thromboplastin Timeo n 07-12-2022 aPTT Coag (Bld) [Time] 29.9 s Normal 24.4-36.8 [facility] Comment on above: Result Comment: Effe ctive 03/15/2020: Heparin Therapeutic Range: 64.0 ? 98.0 seconds. Performed By: #### C BCWD #### [facility] [address] [facility] [id number] [phone] Procalcitoninon 07-12-2022 Procalcitonin 0.06 ng/mL Normal 0.00-0.15 [facility] Comment on above: Result Comment: Susp ected [...] to determine the patient's Mortality Risk Prognosis ([email or web address]-[email or web address]) In healthy neonates, plasma Procalcitonin (PCT) concentrations increase gradually after , reaching peak values at about 24 hours of age then decrease to normal values below 0.5 ng/mL by 48-72 hours of age. Performed By: #### C BCWD #### [facility] [address] [place] [address] Procalcitonin 0.06 ng/mL 0.00 - 0.15 ng/mL [facility] Comment on above: Suspected Sepsis: Low [...] to determine the patient's Mortality Risk Prognosis ([email or web address]) In healthy neonates, plasma Procalcitonin (PCT) concentrations increase gradually after , reaching peak values at about 24 hours of age then decrease to normal values below 0.5 ng/mL by 48-72 hours of age. Prothrombin Timeon 3 INR Coag (PPP) [Relative time] 1.0 {INR} Normal [facility] Comment on above: Performed By: #### P T #### [facility] [address] [place] [address] PT Coag (PPP) [Time] 13.6 s Normal 12.3-14.9 [facility] Comment on above: Performed By: #### P T #### [facility] [address] [place] [address] Protime-INRon 07-12-2022 INR Coag (Bld) [Relative time] 1.0 {INR} [facility] PT Coag (PPP) [Time] 13.[address] [facility] TSHon 07-12-2022 TSH Qn 1.610 m[IU]/L [facility] TSH w/out Reflexon 3 TSH w/out Reflex 1.610 uIU/mL Normal 0.440-3.86 [facility] Comment on above: Performed By: #### T SH #### [facility] [address] [place] [address] Troponinon 07-12-2022 Troponin I.cardiac [Mass/Vol] ng/mL Normal 0.000-0.01 [facility] Comment on above: Result Comment: Meth odology by Troponin T. Performed By: #### C BCWD #### [facility] [address] [place] [address] Troponin I.cardiac [Mass/Vol] ng/mL 0.000 - 0.010 ng/mL [facility] Comment on above: Methodology by Telma Figueroa Urinalysis with Reflex to Cu ltureon 07-12-2022 Bilirubin Urine Negative Negative [facility] Blood, Urine Negative Negative [facility] Clarity, UA Clear Clear [facility] Color, UA Yellow Straw/Yello w [facility] Glucose, Ur Negative Negative mg/dL [facility] Interpretation and review of laboratory results Abnormal [facility] Ketones Ql (U) Negative Negative mg/dL [facility] Leukocyte esterase Test strip Ql (U) TRACE Abnormal Negative [facility] Nitrite, Urine Negative Negative [facility] pH, UA 5.0 5.0 - 9.[address] [facility] Protein, UA Negative Negative mg/dL [facility] Specific [place], UA 1.011 1.005 - 1.[address] [facility] Urine Reflex to Culture Not Indicated [facility] Urobilinogen, Urine 0.2 NINJosiah [facility] Urinalysis, reflex to cultur elizabeth 07-12-2022 Urine Reflexed to Culture Not Indicated Normal [facility] Comment on above: Performed By: #### C BCWD #### [facility] [address] [place] [address] Bilirubin Ql (U) Negative Normal Negative [facility] Comment on above: Performed By: #### C BCWD #### [facility] [address] [place] [address] Clarity (U) Clear Normal Clear [facility] Comment on above: Performed By: #### C BCWD #### [facility] [address] [place] [address] Color (U) Yellow Normal Straw/Blaine [facility] Comment on above: Performed By: #### C BCWD #### [facility] [address] [place] [address] Glucose Ql (U) Negative Normal Negative [facility] Comment on above: Performed By: #### C BCWD #### [facility] [address] [place] [address] Hemoglobin Ql (U) Negative Normal Negative [facility] Comment on above: Performed By: #### C BCWD #### [facility] [address] [place] [address] Ketones Ql (U) Negative Normal Negative [facility] Comment on above: Performed By: #### C BCWD #### [facility] [address] [place] [address] Leukocyte esterase Test strip Ql (U) TRACE Abnormal Negative [facility] Comment on above: Performed By: #### C BCWD #### [facility] [address] [place] [address] Nitrite Ql (U) Negative Normal Negative [facility] Comment on above: Performed By: #### C BCWD #### [facility] [address] [place] [address] pH (U) 5.0 [pH] Normal 5.0-9.0 [facility] Comment on above: Performed By: #### C BCWD #### [facility] [address] [place] [address] Protein Ql (U) Negative Normal Negative [facility] Comment on above: Performed By: #### C BCWD #### [facility] [address] [place] [address] Specific gravity (U) [Rel density] 1.011 Normal 1.005-1.03 [facility] Comment on above: Performed By: #### C BCWD #### [facility] [address] [place] [address] Urobilinogen Qn (U) 0.2 {Nerissa'U}/dL Normal < 2.0 [facility] Comment on above: Performed By: #### C BCWD #### [facility] [address] [place] [address] Urine Microscopicon 07-13-19 23 Bacteria LM.HPF (Urine sed) [#/Area] Negative Normal Negative [facility] Comment on above: Performed By: #### U DIEGO #### [facility] [address] [place] [address] Urine Epithelial Cells Auto 0-2 Normal 0-5 [facility] Comment on above: Performed By: #### U DIEGO #### [facility] [address] [place] [address] Urine Hyaline Casts Auto 0-1 Normal 0-5 [facility] Comment on above: Performed By: #### U DIEGO #### [facility] [address] [place] [address] Urine RBC Auto 0-2 Normal 0-5 [facility] Comment on above: Performed By: #### U DIEGO #### [facility] [address] [place] [address] Urine WBC Auto 0-2 Normal 0-5 [facility] Comment on above: Performed By: #### U DIEGO #### [facility] [address] [place] [address] XR CHEST (2 VW)on 07-12-2022 XR CHEST [...] Salo Quinteros MD 07/12/22 Final result Normal [facility] No acute process. Mild elevation of right hemidiaphragm. [facility] RADIOLOGY EXAMINATION: TWO XRAY VIEWS OF [...] The osseous structures are without acute process. [facility] RADIOLOGY Salo Quinteros MD - 07/12/2022 [...] acute process. Mild elevation of right hemidiaphragm. [employer] Phone: Radiology Study observation (narrative) [employer] Phone: XR CHEST (2 VW)Ordered By: David Quinteros on 07-12-2022 [employer] Phone: proBNPon 07-12-2022 Natriuretic peptide B (Bld) [Mass/Vol] 265 pg/mL Normal [facility] Comment on above: Result [...] 2006;27:330-337 Performed By: #### B NPPR #### [facility] [address] [place] [address] GLYCOHEMOGLOBIN A1Con 2022 ADA RECOMMENDATION SEE BELOW Normal [facility] Comment on above: Result Comment: ADA RECOMMENDED LIMIT 4.0 - 6.0 ADA THERAPEUTIC TARGET < 7.0 ACTION SUGGESTED > 7.0 Performed By: #### A 1C ####[facility] [address] [place] [address]Dr. Eber Kelly Glucose [Mass/Vol] 148 mg/dL Normal [facility] Comment on above: Performed By: #### A 1C ####[facility] [address] [place] [id number]. Eber Kelly HbA1c (Bld) [Mass fraction] 6.8 % Critically high 4.5-6.2 [facility] Comment on above: Performed By: #### A 1C ####[facility] [address] [place] [address]Dr. Eber Kelly No Panel Informationon 07-03 BLANK _ [facility] Implant Date 02/27/2015 [facility] Model 2088TC Tendril STS [facility] PACEMAKER REMOTE CHECKon AV Delay Adaptive Paced Minimum (ms) 150 ms [facility] AV Delay Adaptive Sensed Minimum (ms) 130 ms [facility] AV Delay Paced (ms) 100 ms [facility] AV Delay Sensed (ms) 100 ms [facility] Battery Voltage (volts) 2.92 V [facility] Dirk RA Pacing Amplitude (volts) 2 V [facility] Dirk RA Pacing Polarity BI [facility] Dirk RA Pacing Pulse Width (ms) 0.5 ms [facility] Dirk RA Sensing Amplitude (mvolts) 0.4 mV [facility] Dirk RA Sensing Polarity BI [facility] Dirk RV Pacing Amplitude (volts) 1.5 V [facility] Dirk RV Pacing Polarity BI [facility] Dirk RV Pacing Pulse Width (ms) 0.5 ms [facility] Dirk RV Sensing Amplitude (mvolts) 2 mV [facility] Dirk RV Sensing Polarity BI [facility] Lead1 Mfg STJ [facility] Lead2 Mfg STJ [facility] Location RA [facility] Location RV [facility] Lower Rate (bpm) 60 {beats}/min [facility] Max Sensor Rate (bmp) 120 {beats}/min [facility] Model 2240 Assurity [facility] Pacing Mode DDD [facility] PM-Device Mfg STJ [facility] PM-Percent Pacing (A) 4.4 % [facility] PM-Percent Pacing (V) 99 % [facility] RA Bipolar Impedance ohms 450 ohm [facility] RV Bipolar Impedance ohms 840 ohm [facility] Serial Number [id number] [facility] Serial Number [id number] [facility] Serial Number [id number] [facility] Thresh RA Capture Amplitude (volts) 1 V [facility] Thresh RA Capture Duration (ms) 0.5 ms [facility] Thresh RA Sensing Amplitude (mvolts) 0.5 mV [facility] Thresh RV Capture Amplitude (volts) 1.25 V [facility] Thresh RV Capture Duration (ms) 0.5 ms [facility] Thresh RV Sensing Amplitude (mvolts) 12 mV [facility] Tracking Rate (bpm) 120 {beats}/min [facility] BNPon 06-29-2022 Natriuretic peptide B (Bld) [Mass/Vol] 214.0 pg/mL Normal <=1,800.0 [facility] Comment on above: Performed By: #### C MP, BNP, CMADM ####[facility] [address] [place] [address]Dr. Eber Kelly CARDIAC FRIEDA ADMITon 023 CK [Catalytic activity/Vol] 31 U/L Normal 26-192 [facility] Comment on above: Performed By: #### C MP, BNP, CMADM #### [facility] [address] [place], [place] [address] Dr. Eber Kelly CK.MB [Mass/Vol] ng/mL Normal <=3.60 [facility] Comment on above: Performed By: #### C MP, BNP, CMADM #### [facility] [address] [place] [address] Dr. Eber Kelly HSTROP 5.2 pg/mL Normal 4.0-51.3 [facility] Comment on above: Result Comment: CUT- OFF POINTS HAVE BEEN ESTABLISHED BASED ON THE FOURTH UNIVERSAL DEFINITIONS OF MYOCARDIAL INFARCTION. THE UPPER REFERENCE LIMIT (URL) OF TROPONIN, DEFINED THE 99TH PERCENTILE OF cTnI DISTRIBUTION IN A REFERENCE POPULATION, HAS BEEN CONFIRMED THE DECISION THRESHOLD FOR AL DIAGNOSIS. Performed By: #### C MP, BNP, CMADM #### [facility] [address] [place] [address] Dr. Eber Kelly ADELA 44 ng/mL Normal 9-82 [facility] Comment on above: Performed By: #### C MP, BNP, CMADM #### [facility] [address] [place] [address] Dr. Eber Kelly CBC AUTO DIFFon 06-29-2022 BASO # 0.1 103/ul Normal 0.0-0.1 [facility] Comment on above: Performed By: #### C BC #### [facility] [address] [place] [address] Dr. Eber Kelly Basophils/100 WBC (Bld) 1.4 % Normal 0.2-2.0 [facility] Comment on above: Performed By: #### C BC #### [facility] [address] [place] [address] Dr. Eber Kelly EO # 0.2 103/ul Normal 0.0-0.7 [facility] Comment on above: Performed By: #### C BC #### [facility] [address] [place] [address] Dr. Eber Kelly Eosinophils/100 WBC (Bld) 2.0 % Normal 0.9-7.0 [facility] Comment on above: Performed By: #### C BC #### [facility] [address] [place] [address] Dr. Eber Kelly Erythrocyte distribution width (RBC) [Ratio] 13.3 % Normal 11.0-15.0 [facility] Comment on above: Performed By: #### C BC #### [facility] [address] [place] [address] Dr. Eber Kelly Hematocrit (Bld) [Volume fraction] 47.3 % Normal 36.0-48.0 [facility] Comment on above: Performed By: #### C BC #### [facility] [address] [place] [address] Dr. Eber Kelly Hemoglobin (Bld) [Mass/Vol] 15.8 g/dL Normal 12.0-16.0 [facility] Comment on above: Performed By: #### C BC #### [facility] [address] [place] [address] Dr. bEer Kelly IG # 0.02 10e3/ul Normal 0.00-0.03 [facility] Comment on above: Performed By: #### C BC #### [facility] [address] [place] [address] Dr. Eber Kelly IG % 0.2 % Normal 0.0-0.5 [facility] Comment on above: Performed By: #### C BC #### [facility] [address] [place] [address] Dr. Eber Kelly LYMPH # 2.4 103/ul Normal 1.2-3.8 [facility] Comment on above: Performed By: #### C BC #### [facility] [address] [place] [address] Dr. Eber Kelly Lymphocytes/100 WBC (Bld) 28.5 % Normal 20.5-60.0 [facility] Comment on above: Performed By: #### C BC #### [facility] [address] [place] [address] Dr. Eber Kelly MANUAL DIFF REQ NO Normal [facility] Comment on above: Performed By: #### C BC #### [facility] [address] [place] [address] Dr. Eber Kelly MCH (RBC) [Entitic mass] 29.2 pg Normal 26.7-34.0 [facility] Comment on above: Performed By: #### C BC #### [facility] [address] [place] [address] Dr. Eber Kelly MCHC (RBC) [Mass/Vol] 33.4 g/dL Normal 29.9-35.2 [facility] Comment on above: Performed By: #### C BC #### [facility] [address] [place] [address] Dr. Eber Kelly MCV (RBC) [Entitic vol] 87.4 fL Normal 81.0-99.0 [facility] Comment on above: Performed By: #### C BC #### [facility] [address] [place] [address] Dr. Eber Kelly MONO # 0.7 103/ul Normal 0.3-0.8 [facility] Comment on above: Performed By: #### C BC #### [facility] [address] [place] [address] Dr. Eber Kelly Monocytes/100 WBC (Bld) 7.9 % Normal 1.7-12.0 [facility] Comment on above: Performed By: #### C BC #### [facility] [address] [place] [address] Dr. Eber Kelly NEUT # 5.0 103/ul Normal 1.4-6.5 [facility] Comment on above: Performed By: #### C BC #### [facility] [address] [place] [address] Dr. Eber Kelly Neutrophils/100 WBC (Bld) 60.0 % Normal 43.0-75.0 [facility] Comment on above: Performed By: #### C BC #### [facility] [address] [place] [address] Dr. Eber Kelly Platelet mean volume (Bld) [Entitic vol] 11.0 fL Normal 9.5-13.5 [facility] Comment on above: Performed By: #### C BC #### [facility] [address] [place] [address] Dr. Eber Kelly PLT 310 103/ul Normal 150-450 [facility] Comment on above: Performed By: #### C BC #### [facility] [address] [place], [place] [address] Dr. Eber Kelly RBC 5.41 106/ul Critically high 4.20-5.40 [facility] Comment on above: Performed By: #### C BC #### [facility] [address] [place], [place] [address] Dr. Eber Kelly WBC 8.3 103/ul Normal 4.0-11.0 [facility] Comment on above: Performed By: #### C BC #### [facility] [address] [place], [place] [address] HEAD WO CONon [...] by: JOEY MARLEY Date: 2022-06-29 10:09 Normal [facility] CTA NECK WO W CONon 06-29-19 [...] by: ADIN KILLIAN Date: 2022-06-29 11:06 Normal [facility] ER URINE PROFILEon 3 Bilirubin Ql (U) Negative Normal NEGATIVE [facility] Comment on above: Performed By: #### E RUR #### [facility] [address] [place] [address] Dr. Eber Kelly Clarity (U) CLEAR Normal CLEAR [facility] Comment on above: Performed By: #### E RUR #### [facility] [address] [place] [address] Dr. Eber Kelly Color (U) LT. YELLOW Normal YELLOW [facility] Comment on above: Performed By: #### E RUR #### [facility] [address] [place] [address] Dr. Eber Kelly ERUAHD A micrscopic examination will be performed if indicated. Normal [facility] Comment on above: Performed By: #### E RUR #### [facility] [address] [place] [address] Dr. Eber Kelly Glucose Ql (U) Negative Normal NEGATIVE [facility] Comment on above: Performed By: #### E RUR #### [facility] [address] [place] [address] Dr. Eber Kelly Hemoglobin Ql (U) Negative Normal NEGATIVE [facility] Comment on above: Performed By: #### E RUR #### [facility] [address] [place] [address] Dr. Eber Kelly Ketones Ql (U) Negative Normal NEGATIVE [facility] Comment on above: Performed By: #### E RUR #### [facility] [address] [place] [address] Dr. Eber Kelly LEUKOCYTES Negative Normal NEGATIVE [facility] Comment on above: Performed By: #### E RUR #### [facility] [address] [place] [address] Dr. Eber Kelly Nitrite Ql (U) Negative Normal NEGATIVE [facility] Comment on above: Performed By: #### E RUR #### [facility] [address] [place] [address] Dr. Eber Kelly pH (U) 6.0 [pH] Normal 5-9 [facility] Comment on above: Performed By: #### E RUR #### [facility] [address] [place] [address] Dr. Eber Kelly SPEC GRAVITY <=1.005 Abnormal 1.005-<=1.0 25 [facility] Comment on above: Performed By: #### E RUR #### [facility] [address] [place] [address] Dr. Eber Kelly UA PROTEIN Negative Normal NEGATIVE/ TRACE [facility] Comment on above: Performed By: #### E RUR #### [facility] [address] [place] [address] Dr. Eber Kelly UR MICRO IND NOT INDICATED Normal [facility] Comment on above: Performed By: #### E RUR #### [facility] [address] [place] [address] Dr. Eber Kelly Urobilinogen Qn (U) 0.2 {Nerissa'U}/dL Normal 0.2 - 1. 0 [facility] Comment on above: Performed By: #### E RUR #### [facility] [address] [place] [address] Dr. Eber Kelly POINT OF CARE GLUCOSEon 06-12 Glucose [Mass/Vol] 156 mg/dL Critically high 74-106 [facility] Comment on above: Performed By: #### P OCGLUC ####[facility] [address] [place], [place] [address]OaDr. Eber Kelly PROF 14(COMP METB)on 023 Albumin [Mass/Vol] 3.9 g/dL Normal 3.4-5.0 [facility] Comment on above: Performed By: #### C MP, BNP, CMADM #### [facility] [address] [place] [address] [address] Eber Kelly Albumin/Globulin [Mass ratio] 1.0 {ratio} Normal [facility] Comment on above: Performed By: #### C MP, BNP, CMADM #### [facility] [address] [place] [address] [address] Eber Kelly ALP [Catalytic activity/Vol] 79 U/L Normal 46-116 [facility] Comment on above: Performed By: #### C MP, BNP, CMADM #### [facility] [address] [place] [address] [address] Eber Kelly ALT [Catalytic activity/Vol] 15 U/L Normal 14-59 [facility] Comment on above: Performed By: #### C MP, BNP, CMADM #### [facility] [address] [place] [address] [address] Eber Kelly Anion gap [Moles/Vol] 13.3 mmol/L Normal [facility] Comment on above: Performed By: #### C MP, BNP, CMADM #### [facility] [address] [place] [address] [address] Eber Kelly AST [Catalytic activity/Vol] 13 U/L Critically low 15-37 [facility] Comment on above: Performed By: #### C MP, BNP, CMADM #### [facility] [address] [place] [address] [address] Eber Kelly Bilirubin [Mass/Vol] 0.6 mg/dL Normal 0.2-1.0 [facility] Comment on above: Performed By: #### C MP, BNP, CMADM #### [facility] [address] [place] [address] [address] Eber Kelly Calcium [Mass/Vol] 9.4 mg/dL Normal 8.5-10.1 [facility] Comment on above: Performed By: #### C MP, BNP, CMADM #### [facility] [address] [place] [address] [address] Eber Kelly Chloride [Moles/Vol] 104 mmol/L Normal 98-107 [facility] Comment on above: Performed By: #### C MP, BNP, CMADM #### [facility] [address] [place] [address] Dr. Eber Kelly CO2 [Moles/Vol] 26.9 mmol/L Normal 21.0-32.0 [facility] Comment on above: Performed By: #### C MP, BNP, CMADM #### [facility] [address] [place] [address] [address] Eber Kelly Creatinine [Mass/Vol] 0.94 mg/dL Normal 0.55-1.02 [facility] Comment on above: Performed By: #### C MP, BNP, CMADM #### [facility] [address] [place] [address] Dr. Eber Kelly EGFR-AF LIBERIAN >60 Normal >=60 [facility] Comment on above: Performed By: #### C MP, BNP, CMADM #### [facility] [address] [place] [address] Dr. Eber Kelly EGFR-NON AF LIBERIAN 57 mL/min/1.73m2 Critically low >=60 [facility] Comment on above: Performed By: #### C MP, BNP, CMADM #### [facility] [address] [place] [address] Dr. Eber Kelly Globulin (S) [Mass/Vol] 4.0 g/dL Normal [facility] Comment on above: Performed By: #### C MP, BNP, CMADM #### [facility] [address] [place] [address] Dr. Eber Kelly Glucose [Mass/Vol] 159 mg/dL Critically high 74-106 [facility] Comment on above: Performed By: #### C MP, BNP, CMADM #### [facility] [address] [place] [address] [address] Eber Kelly Potassium [Moles/Vol] 4.2 mmol/L Normal 3.5-5.1 [facility] Comment on above: Performed By: #### C MP, BNP, CMADM #### [facility] [address] [place] [address] [address] Eber Kelly Protein [Mass/Vol] 7.9 g/dL Normal 6.4-8.2 [facility] Comment on above: Performed By: #### C MP, BNP, CMADM #### [facility] [address] [place] [address] [address] Eber Kelly Sodium [Moles/Vol] 140 mmol/L Normal 136-145 [facility] Comment on above: Performed By: #### C MP, BNP, CMADM #### [facility] [address] [place] [address] [address] Eber Kelly Urea nitrogen [Mass/Vol] 14.0 mg/dL Normal 7.0-18.0 [facility] Comment on above: Performed By: #### C MP, BNP, CMADM #### [facility] [address] [place] [address] [address] Eber Kelly Urea nitrogen/Creatinine [Mass ratio] 14.9 mg/mg Normal [facility] Comment on above: Performed By: #### C MP, BNP, CMADM #### [facility] [address] [place] [address] [address] Eber Kelly PROTIMEon 06-29-2022 INR Coag (PPP) [Relative time] 1.05 {INR} Normal [facility] Comment on above: Performed By: #### P TT, PT ####[facility] [address] [place] [address]Dr. Eber Kelly INR GUIDELINES SEE BELOW Normal [facility] Comment on above: Result Comment: JULIOCESAR RED INR: 2.0 - 3.0 CONDITIONS NOT LISTED BELOW 2.5 - 3.5 FOR PROSTHETIC HEART VALVE REPLACEMENT 2.5 - 3.5 RECURRENT THROMBOSIS Performed By: #### P TT, PT ####[facility] [address] [place], [place] [address]Zl. Eber Kelly PT Coag (PPP) [Time] 11.1 s Normal 9.0-11.6 [facility] Comment on above: Performed By: #### P TT, PT ####[facility] [address] [place], [place] [address]Hu. Eber Kelly PTTon 06-29-2022 aPTT Coag (Bld) [Time] 31.8 s Normal 22.3-36.2 [facility] Comment on above: Performed By: #### P TT, PT ####[facility] [address] [place], [place] [address]Sx. Eber Kelly XR CHEST 1 Von 06-29-2022 [...] by: ALLA MONTALVO Date: 2022-06-29 10:06 Normal [facility] No Panel Informationon 05-01 BLANK _ [facility] Implant Date 02/27/2015 [facility] Model 2088TC Tendril STS [facility] CHECKon AMS Fallback Rate (bpm) 70 {beats}/min [facility] AV Delay Adaptive Paced Minimum (ms) 150 ms [facility] AV Delay Adaptive Rate Maximum (bpm) 120 {beats}/min [facility] AV Delay Adaptive Rate Minimum (bpm) 90 {beats}/min [facility] AV Delay Adaptive Sensed Minimum (ms) 130 ms [facility] AV Delay Adaptive Status Medium [facility] AV Delay Paced (ms) 100 ms [facility] AV Delay Sensed (ms) 100 ms [facility] Battery Voltage (volts) 2.93 V [facility] Dirk RA Pacing Amplitude (volts) 2 V [facility] Dirk RA Pacing Polarity BI [facility] Dirk RA Pacing Pulse Width (ms) 0.5 ms [facility] Dirk RA Sensing Blanking Period (ms) 150 ms [facility] Dirk RA Sensing Polarity BI [facility] Dirk RA Sensing Refractory Period (ms) 190 ms [facility] Dirk RV Pacing Amplitude (volts) 1.25 V [facility] Dirk RV Pacing Polarity BI [facility] Dirk RV Pacing Pulse Width (ms) 0.5 ms [facility] Drik RV Sensing Amplitude (mvolts) 2 mV [facility] Dirk RV Sensing Blanking Period (ms) 44 ms [facility] Dirk RV Sensing Polarity BI [facility] Dirk RV Sensing Refractory Period (ms) 250 ms [facility] Hysteresis Rate (bpm) Off [facility] Lead1 Mfg STJ [facility] Lead2 Mfg STJ [facility] Location RA [facility] Location RV [facility] Lower Rate (bpm) 60 {beats}/min [facility] Max Sensor Rate (bmp) 120 {beats}/min [facility] Model 2240 Assurity [facility] Pacemaker Dependent? YES [facility] Pacing Mode DDD [facility] PM-Device g STJ [facility] PM-Percent Pacing (A) 3.9 % [facility] PM-Percent Pacing (V) 99.98 % [facility] PM-PMT Intervention Atrial Pace [facility] PM-PVC Intervention Off [facility] PM-Rate Modulation Acceleration Reaction Fast [facility] PM-Rate Modulation Deceleration Medium [facility] PM-Rate Modulation [place] Auto (+2) [facility] PM-Rate Modulation Threshold Auto (+0.0) [facility] Rhythm Sinus rhythm with complete heart block [facility] Serial Number [id number] [facility] Serial Number [id number] [facility] Serial Number [id number] [facility] Thresh RA Capture Amplitude (volts) 1 V [facility] Thresh RA Capture Duration (ms) 0.5 ms [facility] Thresh RA Sensing Amplitude (mvolts) 1.4 mV [facility] Thresh RV Capture Amplitude (volts) 1 V [facility] Thresh RV Capture Duration (ms) 0.5 ms [facility] Thresh RV Sensing Amplitude (mvolts) 12 mV [facility] Tracking Rate (bpm) 120 {beats}/min [facility] No Panel Informationon 04-01 BLANK _ [facility] Implant Date 02/27/2015 [facility] Model 2088TC Tendril STS [facility] PACEMAKER REMOTE CHECKon AV Delay Adaptive Paced Minimum (ms) 150 ms [facility] AV Delay Adaptive Sensed Minimum (ms) 130 ms [facility] AV Delay Paced (ms) 100 ms [facility] AV Delay Sensed (ms) 100 ms [facility] Battery Voltage (volts) 2.93 V [facility] Dirk RA Pacing Amplitude (volts) 2 V [facility] Dirk RA Pacing Polarity BI [facility] Dirk RA Pacing Pulse Width (ms) 0.5 ms [facility] Dirk RA Sensing Amplitude (mvolts) 0.4 mV [facility] Dirk RA Sensing Polarity BI [facility] Dirk RV Pacing Amplitude (volts) 1.125 [facility] Dirk RV Pacing Polarity BI [facility] Dirk RV Pacing Pulse Width (ms) 0.5 ms [facility] Dirk RV Sensing Amplitude (mvolts) 2 mV [facility] Dirk RV Sensing Polarity BI [facility] Lead1 Mfg STJ [facility] Lead2 Mfg STJ [facility] Location RA [facility] Location RV [facility] Lower Rate (bpm) 60 {beats}/min [facility] Max Sensor Rate (bmp) 120 {beats}/min [facility] Model 2240 Assurity [facility] Pacing Mode DDD [facility] PM-Device Mfg STJ [facility] PM-Percent Pacing (A) 4.2 % [facility] PM-Percent Pacing (V) 99 % [facility] RA Bipolar Impedance ohms 450 ohm [facility] RV Bipolar Impedance ohms 850 ohm [facility] Serial Number [id number] [facility] Serial Number [id number] [facility] Serial Number [id number] [facility] Thresh RA Capture Amplitude (volts) 1 V [facility] Thresh RA Capture Duration (ms) 0.5 ms [facility] Thresh RA Sensing Amplitude (mvolts) 0.5 mV [facility] Thresh RV Capture Amplitude (volts) 0.875 V [facility] Thresh RV Capture Duration (ms) 0.5 ms [facility] Thresh RV Sensing Amplitude (mvolts) 12 mV [facility] Tracking Rate (bpm) 120 {beats}/min [facility] MICROALBUMIN URINEon 022 Albumin, Urine 35.2 ug/mL Normal Not Estab. [facility] Comment on above: Performed By: #### M ALBLC #### [facility] [address] [place], [place] [address] Dr. Eber Kelly CBC AUTO DIFFon 01-07-2022 BASO # 0.1 103/ul Normal 0.0-0.1 [facility] Comment on above: Performed By: #### C BC ####[facility] [address] [place] [address]DrYasmin Kelly Basophils/100 WBC (Bld) 1.1 % Normal 0.2-2.0 [facility] Comment on above: Performed By: #### C BC ####[facility] [address] [place] [address]Dr. Eber Kelly EO # 0.2 103/ul Normal 0.0-0.7 [facility] Comment on above: Performed By: #### C BC ####[facility] [address] [place] [address]Dr. Eber Kelly Eosinophils/100 WBC (Bld) 1.7 % Normal 0.9-7.0 [facility] Comment on above: Performed By: #### C BC ####[facility] [address] [place], [place] [address]Dr. Eber Kelly Erythrocyte distribution width (RBC) [Ratio] 13.4 % Normal 11.0-15.0 [facility] Comment on above: Performed By: #### C BC ####[facility] [address] [place], [place] [address]Dr. Eber Kelly Hematocrit (Bld) [Volume fraction] 47.0 % Normal 36.0-48.0 [facility] Comment on above: Performed By: #### C BC ####[facility] [address] [place], [place] [address]DrYasmin Kelly Hemoglobin (Bld) [Mass/Vol] 15.5 g/dL Normal 12.0-16.0 [facility] Comment on above: Performed By: #### C BC ####[facility] [address] [place], [place] [address]Dr. Eber Kelly IG # 0.03 10e3/ul Normal 0.00-0.03 [facility] Comment on above: Performed By: #### C BC ####[facility] [address] [place] [address]Dr. Eber Kelly IG % 0.3 % Normal 0.0-0.5 [facility] Comment on above: Performed By: #### C BC ####[facility] [address] [place] [address]DrYasmin Eber Kelly LYMPH # 3.2 103/ul Normal 1.2-3.8 [facility] Comment on above: Performed By: #### C BC ####[facility] [address] [place], [place] [address]DrYasmin Eber Kelly Lymphocytes/100 WBC (Bld) 34.4 % Normal 20.5-60.0 [facility] Comment on above: Performed By: #### C BC ####[facility] [address] [place], [place] [address]DrYasmin Eber Kelly MANUAL DIFF REQ NO Normal [facility] Comment on above: Performed By: #### C BC ####[facility] [address] [place] [address]Dr. Eber Kelly MCH (RBC) [Entitic mass] 29.1 pg Normal 26.7-34.0 [facility] Comment on above: Performed By: #### C BC ####[facility] [address] [place], [place] [address]Dr. Eber Kelly MCHC (RBC) [Mass/Vol] 33.0 g/dL Normal 29.9-35.2 [facility] Comment on above: Performed By: #### C BC ####[facility] [address] [place], [place] [address]DrYasmin Eber Kelly MCV (RBC) [Entitic vol] 88.3 fL Normal 81.0-99.0 [facility] Comment on above: Performed By: #### C BC ####[facility] [address] [place], [place] [address]DrYasmin Eber Robin MONO # 0.9 103/ul Critically high 0.3-0.8 [facility] Comment on above: Performed By: #### C BC ####[facility] [address] [place] [address]Dr. Eber Kelly Monocytes/100 WBC (Bld) 9.5 % Normal 1.7-12.0 [facility] Comment on above: Performed By: #### C BC ####[facility] [address] [place] [address]Dr. Eber Kelly NEUT # 4.9 103/ul Normal 1.4-6.5 [facility] Comment on above: Performed By: #### C BC ####[facility] [address] [place] [address]Dr. Eber Kelly Neutrophils/100 WBC (Bld) 53.0 % Normal 43.0-75.0 [facility] Comment on above: Performed By: #### C BC ####[facility] [address] [place] [address]Dr. Eber Kelly Platelet mean volume (Bld) [Entitic vol] 10.8 fL Normal 9.5-13.5 [facility] Comment on above: Performed By: #### C BC ####[facility] [address] [place] [address]Dr. Eber Kelly PLT 305 103/ul Normal 150-450 [facility] Comment on above: Performed By: #### C BC ####[facility] [address] [place] [address]Dr. Eber Kelly RBC 5.32 106/ul Normal 4.20-5.40 [facility] Comment on above: Performed By: #### C BC ####[facility] [address] [place] [address]Dr. Eber Kelly WBC 9.3 103/ul Normal 4.0-11.0 [facility] Comment on above: Performed By: #### C BC ####[facility] [address] [place] [address]Dr. Eber Kelly GLYCOHEMOGLOBIN A1Con 2021 ADA RECOMMENDATION SEE BELOW Normal [facility] Comment on above: Result Comment: ADA RECOMMENDED LIMIT 4.0 - 6.0 ADA THERAPEUTIC TARGET < 7.0 ACTION SUGGESTED > 7.0 Performed By: #### A 1C ####[facility] [address] [place] [address]Dr. Eber Kelly Glucose [Mass/Vol] 154 mg/dL Normal [facility] Comment on above: Performed By: #### A 1C ####[facility] [address] [place] [address]Dr. Eber Kelly HbA1c (Bld) [Mass fraction] 7.0 % Critically high 4.5-6.2 [facility] Comment on above: Performed By: #### A 1C ####[facility] [address] [place] [address]Dr. Eber Kelly PROF CHEM 8 (BAS METB)on Anion gap [Moles/Vol] 12.9 mmol/L Normal [facility] Comment on above: Performed By: #### B SAVI, TSH #### [facility] [address] [place] [address] [address] Eber Kelly Calcium [Mass/Vol] 9.4 mg/dL Normal 8.5-10.1 [facility] Comment on above: Performed By: #### B SAVI, TSH #### [facility] [address] [place] [address] [address] Eber Kelly Chloride [Moles/Vol] 100 mmol/L Normal 98-107 [facility] Comment on above: Performed By: #### B SAVI, TSH #### [facility] [address] [place] [address] [address] Eber Kelly CO2 [Moles/Vol] 30.0 mmol/L Normal 21.0-32.0 [facility] Comment on above: Performed By: #### B SAVI, TSH #### [facility] [address] [place] [address] [address] Eber Kelly Creatinine [Mass/Vol] 1.04 mg/dL Critically high 0.55-1.02 [facility] Comment on above: Performed By: #### B SAVI, TSH #### [facility] [address] [address] [address] Eber Kelly EGFR-AF LIBERIAN >60 Normal >=60 [facility] Comment on above: Performed By: #### B MP, TSH #### [facility] [address] [address] [address] Eber Kelly EGFR-NON AF LIBERIAN 51 mL/min/1.73m2 Critically low >=60 [facility] Comment on above: Performed By: #### B MP, TSH #### [facility] [address] [address] [address] Eber Kelly Glucose [Mass/Vol] 160 mg/dL Critically high 74-106 T [facility] Comment on above: Performed By: #### B MP, TSH #### [facility] [address] [place] [address] Dr. Eber Kelly Potassium [Moles/Vol] 3.9 mmol/L Normal 3.5-5.1 [facility] Comment on above: Performed By: #### B MP, TSH #### [facility] [address] [place] [address] Dr. Eber Kelly Sodium [Moles/Vol] 139 mmol/L Normal 136-145 [facility] Comment on above: Performed By: #### B MP, TSH #### [facility] [address] [address] [address] Eber Kelly Urea nitrogen [Mass/Vol] 21.0 mg/dL Critically high 7.0-18.0 [facility] Comment on above: Performed By: #### B MP, TSH #### [facility] [address] [place] [address] Dr. Eber Kelly Urea nitrogen/Creatinine [Mass ratio] 20.2 mg/mg Normal [facility] Comment on above: Performed By: #### B MP, TSH #### [facility] [address] [place] [address] Dr. Eber Kelly TSHon 01-07-2022 TSH 4.497 uIU/mL Critically high 0.358-3.740 [facility] Comment on above: Performed By: #### B MP, TSH #### [facility] [address] [place] [address] Dr. Eber Kelly No Panel Informationon 12-31 BLANK _ [facility] Implant Date 02/27/2015 [facility] Model 2088TC Tendril STS [facility] PACEMAKER REMOTE CHECKon AV Delay Adaptive Paced Minimum (ms) 150 ms [facility] AV Delay Adaptive Sensed Minimum (ms) 130 ms [facility] AV Delay Paced (ms) 100 ms [facility] AV Delay Sensed (ms) 100 ms [facility] Battery Voltage (volts) 2.95 V [facility] Dirk RA Pacing Amplitude (volts) 2 V [facility] Dirk RA Pacing Polarity BI [facility] Dirk RA Pacing Pulse Width (ms) 0.5 ms [facility] Dirk RA Sensing Amplitude (mvolts) 0.4 mV [facility] Dirk RA Sensing Polarity BI [facility] Dirk RV Pacing Amplitude (volts) 1.25 V [facility] Dirk RV Pacing Polarity BI [facility] Dirk RV Pacing Pulse Width (ms) 0.5 ms [facility] Dirk RV Sensing Amplitude (mvolts) 2 mV [facility] Dirk RV Sensing Polarity BI [facility] Lead1 Mfg STJ [facility] Lead2 Mfg STJ [facility] Location RA [facility] Location RV [facility] Lower Rate (bpm) 60 {beats}/min [facility] Max Sensor Rate (bmp) 120 {beats}/min [facility] Model 2240 Assurity [facility] Pacing Mode DDD [facility] PM-Device Mfg STJ [facility] PM-Percent Pacing (A) 4.8 % [facility] PM-Percent Pacing (V) 99 % [facility] RA Bipolar Impedance ohms 460 ohm [facility] RV Bipolar Impedance ohms 860 ohm [facility] Serial Number [id number] [facility] Serial Number [id number] [facility] Serial Number [id number] [facility] Thresh RA Capture Amplitude (volts) 1 V [facility] Thresh RA Capture Duration (ms) 0.5 ms [facility] Thresh RA Sensing Amplitude (mvolts) 1 mV [facility] Thresh RV Capture Amplitude (volts) 1 V [facility] Thresh RV Capture Duration (ms) 0.5 ms [facility] Thresh RV Sensing Amplitude (mvolts) 12 mV [facility] Tracking Rate (bpm) 120 {beats}/min [facility] XR KUB 1 VIEWon 11-20-2021 XR [...] MOOK NEFF Date: 2021-11-20 19:38 Normal [facility] XR Wrist - right AP and Late ralon 05-15-2020 IMPRESSION: Mild to moderate first carpometacarpal joint osteoarthritis. Animal Husbandry Worker: ANNABELLA Transcribe Date/Time: May 15 2020 10:53A Dictated by : JAYY FREY MD This examination was interpreted and the report reviewed and electronically signed by: SANCHEZ DOMINIQUE MD on May 15 2020 1:58PM [facility] DIVISION OF RADIOLOGY * * *Final [...] soft tissue swelling. DIVISION OF RADIOLOGY Provider, Nidia Natividad Hand - 05/15/2020 * * *Final Report* * [...] Mild to moderate first carpometacarpal joint osteoarthritis. Animal Husbandry Worker: PSCB Transcribe Date/Time: May 15 2020 10:53A Dictated by : JAYY FREY MD This examination was interpreted and the report reviewed and electronically signed by: SANCHEZ DOMINIQUE MD on May 15 2020 1:58PM EST [facility] Radiology Study observation (narrative) [facility] XR Wrist - right AP and Late ralOrdered By: [facility] Provider on 05-15-[address] [facility] [address] CHEST WO IVCONon 07-15-19 CT CHEST WO IVCON * * *Final Report* * *DATE OF EXAM: Jul 14 2017 5:00PM [facility] 0541 - CT CHEST WO IVCON / REASON: Solitary pulmonary nodule * * * * Physician Interpretation * * * * EXAMINATION: CHEST CT WITHOUT CONTRASTIndication: Solitary pulmonary noduleTechnique: Spiral CT acquisition of the chest from the thoracic inlet to the upper abdomen without contrast.MQ: [id number] Dose-Length Product: 548 mGy*cmCT Dose Reduction Employed: Automated exposure control (AEC)Comparison: 03/29/2016 and 03/29/2017.RESULT:Limit ations: None.Lines, tubes, and devices: Left-sided pacemaker.Lung parenchyma [...] 2016. Consider a follow-up examination in 6-12 months.Animal Husbandry Worker : ANNABELLA Transcribe Date/Time: Jul 15 2017 12:47PDictated by : TANMAY MONROY MDThis examination was interpreted and the report reviewed and electronically signed by: TANMAY MONROY MD on Jul 15 2017 1:08PM [id number] CN [facility] PROGRESSon 07-14-2017 PROGRESS HNO ID: [id number]: Melissa Pham CTS (Ct)ervice: RadiologyAuthor Type: TechnicianType: Progress NotesFiled: 07/14/2017 4:57 PMNote Text: Radiology Service Progress NotePATIENT NAME: Rufino CollinsMRN: [id number] OF SERVICE: July 14, 2017TIME: 4:57 PMPATIENT IDENTITY VERIFICATION COMPLETED USING TWO (2) METHODS: Patientconfirmed name verbally and ID band matches..PATIENT GENDER DATA: Female. status: : NoBreastfeeding status: NO.PATIENT RELEVANT IMPLANT DATA REVIEWED: YesRADIOLOGY DEPARTMENT: CT; Exam(s) Completed: ChestPERIPHERAL IV DATA: Not applicableSIGNED BY: SE[facility]Tri[facility] 2017 4:57 PM [facility] Vital Signs Date Time Vital Sign Value Performing Clinician Facility 08-26-2024 11:28-0400 Body height 172.72 cm Manav Ball DO Work Phone: [facility] 08-26-2024 11:28-0400 Body mass index (BMI) [Ratio] 34.3 kg/m2 Manav Ball DO Work Phone: [facility] 08-26-2024 11:28-0400 Body weight 102.51 kg Manav Ball DO Work Phone: [facility] 08-26-2024 11:28-0400 Diastolic blood pressure 72 mm[Hg] Manav Ball DO Work Phone: [facility] 08-26-2024 11:28-0400 Heart rate 48 /min Manav Ball DO Work Phone: [facility] 08-26-2024 11:28-0400 Respiratory rate 12 /min Manav Ball DO Work Phone: [facility] 08-26-2024 11:28-0400 SaO2% (BldA) [Mass fraction] 96 % Manav Ball DO Work Phone: [facility] 08-26-2024 11:28-0400 Systolic blood pressure 135 mm[Hg] Manav Ball DO Work Phone: [facility] 08-16-2024 13:30-0400 Respiratory rate 20 /min Kareem Correa [facility] 08-16-2024 13:30-0400 Heart rate 72 /min Kareem Patlee [facility] 08-16-2024 13:30-0400 SaO2% (BldA) [Mass fraction] 98 % Kareem Patele [facility] 08-16-2024 13:30-0400 Diastolic blood pressure 59 mm[Hg] Kareem Patele [facility] 08-16-2024 13:30-0400 Mean blood pressure 91 mm[Hg] Kareem Patele [facility] 08-16-2024 13:30-0400 Systolic blood pressure 155 mm[Hg] Kareem Patele [facility] 08-16-2024 13:00-0400 Heart rate 85 /min Kareem Patele [facility] 08-16-2024 13:00-0400 SaO2% (BldA) [Mass fraction] 99 % Kareem Patele [facility] 08-16-2024 13:00-0400 Diastolic blood pressure 66 mm[Hg] Kareem Patele [facility] 08-16-2024 13:00-0400 Systolic blood pressure 152 mm[Hg] Kareem Patele [facility] 08-16-2024 12:29-0400 Diastolic blood pressure 75 mm[Hg] Kareem Patele [facility] 08-16-2024 12:29-0400 Systolic blood pressure 134 mm[Hg] Kareem Patele [facility] 08-16-2024 12:29-0400 Heart rate 71 /min Kareem Patele [facility] 08-16-2024 12:29-0400 Mean blood pressure 95 mm[Hg] Kareem Patele [facility] 08-16-2024 12:29-0400 Respiratory rate 18 /min Kareem Patele [facility] 08-16-2024 12:29-0400 SaO2% (BldA) [Mass fraction] 96 % Kareem Patele [facility] 08-16-2024 10:42-0400 Body temperature 98.06 [degF] Kareem Patele [facility] 08-16-2024 10:42-0400 Heart rate 98 /min Kareem Correa [facility] 08-16-2024 10:42-0400 Respiratory rate 16 /min Kareem Correa [facility] 08-03-2024 15:25-0400 Diastolic blood pressure 58 mm[Hg] Manav Ball DO Work Phone: [facility] 08-03-2024 15:25-0400 Heart rate 75 /min Manav Ball DO Work Phone: [facility] 08-03-2024 15:25-0400 Respiratory rate 18 /min Manav Ball DO Work Phone: [facility] 08-03-2024 15:25-0400 SaO2% (BldA) [Mass fraction] 94 % Manav Ball DO Work Phone: [facility] 08-03-2024 15:25-0400 Systolic blood pressure 142 mm[Hg] Manav Ball DO Work Phone: [facility] 08-03-2024 14:00-0400 Body temperature 98 [degF] Manav Ball DO Work Phone: [facility] 08-03-2024 13:35-0400 Inhaled oxygen flow rate 8 L/min Manav Ball DO Work Phone: [facility] 08-03-2024 11:27-0400 Body height 172.72 cm Manav Ball DO Work Phone: [facility] 08-03-2024 11:27-0400 Body weight 103.87 kg Manav Ball DO Work Phone: [facility] 07-26-2024 11:30-0400 Body height 172.72 cm Manav Ball DO Work Phone: [facility] 07-26-2024 11:30-0400 Body mass index (BMI) [Ratio] 35.2 kg/m2 Manav Ball DO Work Phone: [facility] 07-26-2024 11:30-0400 Body weight 105.23 kg Manav Ball DO Work Phone: [facility] 07-26-2024 11:30-0400 Diastolic blood pressure 83 mm[Hg] Manav Ball DO Work Phone: [facility] 07-26-2024 11:30-0400 Diastolic blood pressure 89 mm[Hg] Manav Ball DO Work Phone: [facility] 07-26-2024 11:30-0400 Heart rate 90 /min Manav Ball DO Work Phone: [facility] 07-26-2024 11:30-0400 Respiratory rate 12 /min Manav Ball DO Work Phone: [facility] 07-26-2024 11:30-0400 Systolic blood pressure 141 mm[Hg] Manav Ball DO Work Phone: [facility] 07-26-2024 11:30-0400 Systolic blood pressure 139 mm[Hg] Manav Ball DO Work Phone: [facility] 07-23-2024 12:45-0400 Diastolic blood pressure 64 mm[Hg] Manav Ball DO Work Phone: [facility] 07-23-2024 12:45-0400 Heart rate 74 /min Manav Ball DO Work Phone: [facility] 07-23-2024 12:45-0400 Respiratory rate 16 /min Manav Ball DO Work Phone: [facility] 07-23-2024 12:45-0400 SaO2% (BldA) [Mass fraction] 95 % Manav Ball DO Work Phone: [facility] 07-23-2024 12:45-0400 Systolic blood pressure 119 mm[Hg] Manav Ball DO Work Phone: [facility] 07-23-2024 09:02-0400 Body temperature 97.7 [degF] Manav Ball DO Work Phone: [facility] 07-23-2024 05:20-0400 Body weight 104.3 kg Manav Ball DO Work Phone: [facility] 07-22-2024 13:00-0400 Inhaled oxygen flow rate 8 L/min Manav Ball DO Work Phone: [facility] 07-22-2024 00:02-0400 Body height 172.72 cm Manav Ball DO Work Phone: [facility] 07-21-2024 19:14-0400 Diastolic blood pressure 73 mm[Hg] Manav Ball DO Work Phone: [facility] 07-21-2024 19:14-0400 Heart rate 79 /min Manav Ball DO Work Phone: [facility] 07-21-2024 19:14-0400 Respiratory rate 18 /min Manav Ball DO Work Phone: [facility] 07-21-2024 19:14-0400 SaO2% (BldA) [Mass fraction] 98 % Manav Ball DO Work Phone: [facility] 07-21-2024 19:14-0400 Systolic blood pressure 166 mm[Hg] Manav Ball DO Work Phone: [facility] 07-21-2024 11:23-0400 Body height 172.72 cm Manav Ball DO Work Phone: [facility] 07-21-2024 11:23-0400 Body temperature 97.7 [degF] Manav Ball DO Work Phone: [facility] 07-21-2024 11:23-0400 Body weight 103.87 kg Manav Ball DO Work Phone: [facility] 07-14-2024 11:51-0500 Body mass index (BMI) [Ratio] 34.9 kg/m2 Seth Nolasco APRN.RURAL MAIL CONTRACTOR Work Phone: [facility] 07-14-2024 11:51-0500 Body weight 104.1 kg Seth Nolasco APRN.RURAL MAIL CONTRACTOR Work Phone: [facility] 07-14-2024 11:51-0500 Diastolic blood pressure 78 mm[Hg] Seth Nolasco CURING OVEN TENDER.[employer]URAL MAIL CONTRACTOR Work Phone: [facility] 07-14-2024 11:51-0500 Heart rate 97 /min Seth Nolasco CURING OVEN TENDER.RURAL MAIL CONTRACTOR Work Phone: [facility] 07-14-2024 11:51-0500 Systolic blood pressure 122 mm[Hg] Seth Nolasco CURING OVEN TENDER.RURAL MAIL CONTRACTOR Work Phone: [facility] 07-09-2024 13:27-0500 Body height 171.45 cm [facility] 07-09-2024 13:27-0500 Body mass index (BMI) [Ratio] 36 kg/m2 [facility] 07-09-2024 13:27-0500 Body weight 106 kg [facility] 07-09-2024 13:27-0500 Diastolic blood pressure 76 mm[Hg] [facility] 07-09-2024 13:27-0500 Heart rate 94 /min [facility] 07-09-2024 13:27-0500 Respiratory rate 12 /min [facility] 07-09-2024 13:27-0500 SaO2% (BldA) [Mass fraction] 96 % [facility] 07-09-2024 13:27-0500 Systolic blood pressure 119 mm[Hg] [facility] 02-20-2024 13:54-0400 Diastolic blood pressure 60 mm[Hg] Rachid Odell MD Work Phone: [facility] 02-20-2024 13:54-0400 Heart rate 89 /min Rachid Odell MD Work Phone: [facility] 02-20-2024 13:54-0400 Systolic blood pressure 130 mm[Hg] Rachid Odell MD Work Phone: [facility] 01-09-2024 13:49-0400 Body height 171.45 cm [facility] 01-09-2024 13:49-0400 Body mass index (BMI) [Ratio] 36.3 kg/m2 [facility] 01-09-2024 13:49-0400 Body weight 106.65 kg [facility] 01-09-2024 13:49-0400 Diastolic blood pressure 89 mm[Hg] [facility] 01-09-2024 13:49-0400 Heart rate 92 /min [facility] 01-09-2024 13:49-0400 Respiratory rate 12 /min [facility] 01-09-2024 13:49-0400 Systolic blood pressure 139 mm[Hg] [facility] 09-03-2023 11:22-0400 Body height 171.45 cm [facility] 09-03-2023 11:22-0400 Body mass index (BMI) [Ratio] 36.6 kg/m2 [facility] 09-03-2023 11:22-0400 Body weight 107.5 kg [facility] 09-03-2023 11:22-0400 Diastolic blood pressure 84 mm[Hg] [facility] 09-03-2023 11:22-0400 Heart rate 90 /min [facility] 09-03-2023 11:22-0400 SaO2% (BldA) [Mass fraction] 97 % [facility] 09-03-2023 11:22-0400 Systolic blood pressure 122 mm[Hg] [facility] 08-22-2023 13:36-0400 Diastolic blood pressure 76 mm[Hg] Rachid Odell MD Work Phone: [facility] 08-22-2023 13:36-0400 Heart rate 78 /min Rachid Odell MD Work Phone: [facility] 08-22-2023 13:36-0400 Systolic blood pressure 143 mm[Hg] Rachid Odell MD Work Phone: [facility] 07-08-2023 13:41-0500 Body height 171.45 cm [facility] 07-08-2023 13:41-0500 Body mass index (BMI) [Ratio] 36.3 kg/m2 [facility] 07-08-2023 13:41-0500 Body weight 106.65 kg [facility] 07-08-2023 13:41-0500 Diastolic blood pressure 83 mm[Hg] [facility] 07-08-2023 13:41-0500 Heart rate 98 /min [facility] 07-08-2023 13:41-0500 Respiratory rate 12 /min [facility] 07-08-2023 13:41-0500 Systolic blood pressure 137 mm[Hg] [facility] 05-23-2023 13:30-0500 Body height 171.45 cm Manav Ball [facility] Other 05-23-2023 13:30-0500 Body mass index (BMI) [Ratio] 36.88 kg/m2 Manav Ball Other [facility] Other 05-23-2023 13:30-0500 Body weight 108.41 kg Manav Ball Other [facility] Other 05-23-2023 13:30-0500 Diastolic blood pressure 75 mm[Hg] Manav Ball Other [place] [employer] Other 05-23-2023 13:30-0500 Respiratory rate 16 /min Manav Ball Other [employer] Other 05-23-2023 13:30-0500 Systolic blood pressure 141 mm[Hg] Manav Ball Other [employer] Other 05-03-2023 11:25-0500 Body height 171.45 cm Nina Wallace Other [employer] Other 05-03-2023 11:25-0500 Body mass index (BMI) [Ratio] 36.88 kg/m2 Nina Wallace Other [employer] Other 05-03-2023 11:25-0500 Body temperature 98 [degF] Nina Wallace Other [employer] Other 05-03-2023 11:25-0500 Body weight 108.41 kg Nina Wallace Other [employer] Other 05-03-2023 11:25-0500 Diastolic blood pressure 82 mm[Hg] Nina Wallace Other [employer] Other 05-03-2023 11:25-0500 Respiratory rate 18 /min Nina Wallace Other [employer] Other 05-03-2023 11:25-0500 SaO2% (BldA) [Mass fraction] 95 % Nina Wallace Other [employer] Other 05-03-2023 11:25-0500 Systolic blood pressure 118 mm[Hg] Nina Wallace Other [employer] Other 04-17-2023 09:21-0500 Blood Pressure Location Roseann Orzech [facility] 04-17-2023 09:21-0500 Body temperature 97.34 [degF] Roseann Orzech [facility] 04-17-2023 09:21-0500 Diastolic blood pressure 86 mm[Hg] Roseann Orzech [facility] 04-17-2023 09:21-0500 Heart rate 83 /min Roseann Orzech [facility] 04-17-2023 09:21-0500 Systolic blood pressure 134 mm[Hg] Roseann Orzech [facility] 04-16-2023 14:52-0500 Body height 172.7 cm Tamra Grewal MD Work Phone: [facility] 04-16-2023 14:52-0500 Body weight 108.41 kg Tamra Grewal MD Work Phone: [facility] 04-16-2023 14:52-0500 Diastolic blood pressure 84 mm[Hg] Tamra Grewal MD Work Phone: [facility] 04-16-2023 14:52-0500 Heart rate 80 /min Tamra Grewal MD Work Phone: [facility] 04-16-2023 14:52-0500 Systolic blood pressure 142 mm[Hg] Tamra Grewal MD Work Phone: [facility] 01-06-2023 13:30-0400 Body height 171.45 cm Manav Ball Other [employer] Other 01-06-2023 13:30-0400 Body mass index (BMI) [Ratio] 36.88 kg/m2 Manav Ball Other [employer] Other 01-06-2023 13:30-0400 Body weight 108.41 kg Manav Ball Other [employer] Other 01-06-2023 13:30-0400 Diastolic blood pressure 77 mm[Hg] Manav Ball Other [employer] Other 01-06-2023 13:30-0400 Respiratory rate 12 /min Manav Ball Other [employer] Other 01-06-2023 13:30-0400 Systolic blood pressure 136 mm[Hg] Manav Ball Other [employer] Other 08-21-2022 16:15-0400 Body height 171.45 cm Manav Ball Other [employer] Other 08-21-2022 16:15-0400 Body mass index (BMI) [Ratio] 37.83 kg/m2 Manav Ball Other [employer] Other 08-21-2022 16:15-0400 Body weight 111.22 kg Manav Ball Other [employer] Other 08-21-2022 16:15-0400 Diastolic blood pressure 89 mm[Hg] Manav Ball Other [employer] Other 08-21-2022 16:15-0400 Respiratory rate 16 /min Manav Ball Other [employer] Other 08-21-2022 16:15-0400 Systolic blood pressure 170 mm[Hg] Manav Ball Other [employer] Other 08-20-2022 13:26-0400 Diastolic blood pressure 79 mm[Hg] Rachid Odell MD Work Phone: [facility] 08-20-2022 13:26-0400 Heart rate 82 /min Rachid Odell MD Work Phone: [facility] 08-20-2022 13:26-0400 Systolic blood pressure 155 mm[Hg] Rachid Odell MD Work Phone: [facility] 07-17-2022 15:45-0500 Body height 171.45 cm Manav Ball Other [employer] Other 07-17-2022 15:45-0500 Diastolic blood pressure 84 mm[Hg] Manav Ball Other [employer] Other 07-17-2022 15:45-0500 Respiratory rate 16 /min Manav Ball Other [employer] Other 07-17-2022 15:45-0500 Systolic blood pressure 122 mm[Hg] Manav Rajan Other [place] [employer] Other 07-12-2022 18:00-0500 Heart rate 69 /min Km Jason DO Work Phone: [employer] 07-12-2022 18:00-0500 Respiratory rate 25 /min Kmbere Wisemanito DO Work Phone: [employer] 07-12-2022 18:00-0500 SaO2% (BldA) [Mass fraction] 97 % Kmbere Wisemanito DO Work Phone: [facility] 07-12-2022 16:00-0500 Diastolic blood pressure 74 mm[Hg] Km Jason DO Work Phone: [facility] 07-12-2022 16:00-0500 Systolic blood pressure 160 mm[Hg] Km Jason DO Work Phone: [facility] 07-12-2022 15:45-0500 Body height 172.7 cm Kmbere Wisemanito DO Work Phone: [facility] 07-12-2022 15:45-0500 Body mass index (BMI) [Ratio] 37.25 kg/m2 Kmbere Wisemanito DO Work Phone: [facility] 07-12-2022 15:45-0500 Body temperature 97.7 [degF] Km Wisemanito DO Work Phone: [facility] 07-12-2022 15:45-0500 Body weight 111.13 kg Km Wisemanito DO Work Phone: [facility] 05-01-2022 15:58-0500 Body height 172.7 cm Tamra Grewal MD Work Phone: [facility] 05-01-2022 15:58-0500 Body temperature 97.81 [degF] Tamra Grewal MD Work Phone: [facility] 05-01-2022 15:58-0500 Body weight 112.49 kg Tamra Grewal MD Work Phone: [facility] 05-01-2022 15:58-0500 Diastolic blood pressure 68 mm[Hg] Tamra Grewal MD Work Phone: [facility] 05-01-2022 15:58-0500 Heart rate 85 /min Tamra Grewal MD Work Phone: [facility] 05-01-2022 15:58-0500 Respiratory rate 18 /min Tamra Grewal MD Work Phone: [facility] 05-01-2022 15:58-0500 SaO2% (BldA) [Mass fraction] 97 % Tamra Grewal MD Work Phone: [facility] [facility] 05-01-2022 15:58-0500 Systolic blood pressure 147 mm[Hg] Tamra Grewal MD Work Phone: [facility] 01-24-2022 14:00-0400 Diastolic blood pressure 88 mm[Hg] Rachid Odell MD Work Phone: [facility] 01-24-2022 14:00-0400 Heart rate 80 /min Rachid Odell MD Work Phone: [facility] 01-24-2022 14:00-0400 Systolic blood pressure 134 mm[Hg] Rachid Odell MD Work Phone: [facility] 11-23-2021 11:27-0400 Blood Pressure Location Natalie MICHEL [facility] 11-23-2021 11:27-0400 Diastolic blood pressure 91 mm[Hg] Natalie MICHEL [facility] 11-23-2021 11:27-0400 Heart rate 71 /min Natalie MICHEL [facility] 11-23-2021 11:27-0400 Respiratory rate 16 /min Natalie MICHEL [facility] 11-23-2021 11:27-0400 Systolic blood pressure 152 mm[Hg] Natalie MICHEL [facility] 10-09-2021 15:00-0400 Body height 171.45 cm Mook Montezliana Other [employer] Other 10-09-2021 15:00-0400 Body mass index (BMI) [Ratio] 36.26 kg/m2 Mook Jack Other [employer] Other 10-09-2021 15:00-0400 Body weight 106.6 kg Mook Gordoliana Other [employer] Other 10-09-2021 15:00-0400 Diastolic blood pressure 85 mm[Hg] Mook Jack Other [employer] Other 10-09-2021 15:00-0400 Systolic blood pressure 154 mm[Hg] Mook Gordoliana Other [employer] Other Encounters Encounter Date Encounter Type Care Provider Facility Start: 05-20-2025 ambulatory Jessica Linton Facility:[facility] Start: 10-28-2024 End: 10-28-2024 ambulatory Jessica MYasmin Cháveze Facility:[facility] Start: 10-28-2024 End: 10-28-2024 Patient encounter procedure Jessica Linton [facility] Start: 10-05-2024 End: 10-05-2024 Patient encounter procedure Manav Rajan DO Work Phone: [facility]Ul[facility]ound [facility] [place] Work Phone: Start: 10-05-2024 End: 10-05-2024 ambulatory Manav Rajan DO Work Phone: [facility] Work Phone: Start: 08-26-2024 End: 08-26-2024 Patient encounter procedure Manav Rajan DO Work Phone: [facility] Work Phone: Start: 08-25-2024 End: 08-30-2024 Telephone encounter Rachid Odell MD Work Phone: Neurology Comment on above: Patient Question Start: 08-25-2024 End: 08-25-2024 Patient encounter procedure Rachid Odell MD Work Phone: Neurology Comment on above: Essential tremor (Pr imary Dx); Paresthesia of skin Start: 08-25-2024 End: 08-25-2024 Telemedicine consultation with patient Rachid Odell MD Work Phone: Neurology Start: 08-25-2024 End: 08-25-2024 ambulatory RACHID ODELL Facility:[facility] Start: 08-23-2024 End: 08-23-2024 ambulatory Jessica Linton Facility:[facility] Start: 08-23-2024 End: 08-23-2024 Patient encounter procedure Jessica Linton [facility] Start: 08-16-2024 End: 08-16-2024 Emergency department patient visit Kareem Correa [facility] Start: 08-16-2024 End: 08-16-2024 ambulatory Jessica Linton Facility:[facility] Start: 08-16-2024 End: 08-16-2024 Patient encounter procedure Jessica Linton [facility] Start: 08-03-2024 End: 08-03-2024 Admission to same day surgery center Manav Rajan DO Work Phone: [facility]-Surgery Center [facility] [place] Start: 08-03-2024 End: 08-03-2024 ambulatory Manav Rajan DO Work Phone: [facility] Work Phone: Start: 08-03-2024 End: 08-03-2024 ambulatory Jessica Linton Facility:CD:[id number] Start: 07-26-2024 End: 07-26-2024 ambulatory Manav Rajan DO Work Phone: [facility] Work Phone: Start: 07-26-2024 End: 07-26-2024 Patient encounter procedure Manav Rajan DO Work Phone: [facility] Work Phone: Start: 07-22-2024 End: 07-22-2024 ambulatory Jessica Linton Facility:CD:[id number] Start: 07-21-2024 End: 07-23-2024 Evaluation and management of inpatient Manav Rajan DO Work Phone: [facility] [place] [facility] Work Phone: Start: 07-19-2024 End: 07-19-2024 Telephone encounter Rachid Odell MD Work Phone: Neurology Comment on above: Medication Problem Start: 07-19-2024 End: 07-19-2024 ambulatory Manav Rajan [facility] Work Phone: Start: 07-19-2024 End: 07-19-2024 Departed Referred Manav Rajan DO Work Phone: [facility]-LAB Path [facility] Start: 07-19-2024 End: 07-19-2024 ambulatory Manav Rajan DO Work Phone: [facility] Work Phone: Start: 07-19-2024 End: 07-19-2024 Patient encounter procedure Manav Rajan DO Work Phone: [facility] Work Phone: Start: 07-14-2024 End: 07-14-2024 Patient encounter procedure Seth Nolasco [employer] Work Phone: Cardiology Comment on above: Pacemaker (Primary D x); Heart block Start: 07-14-2024 End: 07-14-2024 ambulatory SETHFLY NOLASCO Facility:[facility] Start: 07-09-2024 End: 07-09-2024 [facility] Work Phone: Start: 07-09-2024 End: 07-09-2024 Departed Referred Manav Rajan DO Work Phone: [facility] Start: 07-09-2024 End: 07-09-2024 ambulatory [facility] Work Phone: Start: 07-09-2024 End: 07-09-2024 [facility] Work Phone: Start: 07-01-2024 End: 07-01-2024 ambulatory [facility] Work Phone: Start: 07-01-2024 End: 07-01-2024 Patient encounter procedure [facility] Work Phone: Start: 03-22-2024 End: 03-22-2024 ambulatory [facility] Work Phone: Start: 03-22-2024 End: 03-22-2024 Patient encounter procedure [facility] Work Phone: Start: 02-20-2024 End: 02-20-2024 Patient encounter procedure Rachid Odell MD Work Phone: Neurology Comment on above: Essential tremor (Pr imary Dx) Start: 02-20-2024 End: 02-20-2024 ambulatory RACHID ODELL Facility:[facility] Start: 02-16-2024 End: 02-16-2024 Telephone encounter Tamra Grewal MD Work Phone: Cardiology Comment on above: question Start: 02-14-2024 End: 02-14-2024 Telephone encounter Gurpreet Cruz [employer] Work Phone: Cardiothoracic Comment on above: Results Start: 02-10-2024 Non-patient / Non-visit [facility] Work Phone: Start: 01-09-2024 End: 01-09-2024 ambulatory [facility] Work Phone: Start: 01-09-2024 End: 01-09-2024 Patient encounter procedure [facility] Work Phone: Start: 11-14-2023 Non-patient / Non-visit [facility] Work Phone: Start: 09-03-2023 End: 09-03-2023 ambulatory [facility] Work Phone: Start: 09-03-2023 End: 09-03-2023 Patient encounter procedure [facility] Work Phone: Start: 08-22-2023 End: 08-22-2023 Patient encounter procedure Rachid Odell MD Work Phone: Neurology Comment on above: Neuropathy (Primary Dx); Essential tremor Start: 08-04-2023 Refill Rachid Odell MD Work Phone: Neurology Comment on above: Refill Request Start: 07-08-2023 End: 07-08-2023 [facility] Work Phone: Start: 07-03-2023 Non-patient / Non-visit [facility] Work Phone: Start: 07-02-2023 Follow-up encounter Tamra Grewal MD Work Phone: [facility] Start: 07-02-2023 Pacemaker Remote F/U Tamra Grewal MD Work Phone: [facility] Department Start: 05-23-2023 End: 05-23-2023 ambulatory Manav Rajan Other [employer] Other Start: 05-23-2023 Transitional care manage srvc 14 day discharge Manav Rajan [facility] Start: 05-19-2023 End: 05-19-2023 ambulatory Manav Rajan Other [employer] Other Start: 05-19-2023 Telephone encounter Manav Rajan [facility] Start: 05-14-2023 End: 05-14-2023 ambulatory Manav Rajan Other [employer] Other Start: 05-14-2023 Telephone encounter Manav Rajan [facility] Start: 05-10-2023 End: 05-10-2023 ambulatory Manav Rajan Other [employer] Other Start: 05-10-2023 Telephone encounter Manav Rajan [facility] Start: 05-03-2023 Office outpatient vi sit 15 minutes Nina Wallace [facility] Start: 05-03-2023 End: 05-03-2023 ambulatory Nina Wallace Other [employer] Other Start: 05-03-2023 End: 05-03-2023 Departed Referred [employer] Nina Wallace Work Phone: [facility] [place] Work Phone: Start: 04-30-2023 End: 04-30-2023 Patient encounter procedure CARMINA THOMAS [facility] Start: 04-17-2023 End: 04-17-2023 Lab Drop off Roseann X Thomasch [facility] Start: 04-17-2023 End: 04-17-2023 Patient encounter procedure Roseann X Orzech [facility] Start: 04-16-2023 Follow-up encounter Tamra Grewal MD Work Phone: [facility] Start: 04-16-2023 End: 04-16-2023 Patient encounter procedure Tamra Grewal MD Work Phone: [facility] Department Comment on above: Pacemaker (Primary D x) Start: 04-11-2023 End: 04-11-2023 ambulatory Manav Rajan Other [employer] Other Start: 04-11-2023 Telephone encounter Manav Rajan [facility] Start: 04-10-2023 End: 04-10-2023 ambulatory Manav Rajan Other [employer] Other Start: 04-10-2023 Telephone encounter Manav Mohini [facility] Start: 04-02-2023 Follow-up encounter Tamra Grewal MD Work Phone: [facility] Start: 04-02-2023 Pacemaker Remote F/U Tamra Grewal MD Work Phone: [facility] Department Start: 03-04-2023 Refill Rachid Odell MD Work Phone: Neurology Comment on above: Refill Request Start: 02-20-2023 End: 02-20-2023 ambulatory Rachid Odell MD Work Phone: Neurology Comment on above: Essential tremor (Pr imary Dx) Start: 02-20-2023 End: 02-20-2023 Telemedicine consultation with patient Rachid Odell MD Work Phone: [facility] Start: 02-19-2023 End: 02-19-2023 ambulatory Manav Rajan Other [employer] Other Start: 02-19-2023 Nursing evaluation o f patient and report Manav Rajan [facility] Start: 01-22-2023 Follow-up encounter Tamra Grewal MD Work Phone: [facility] Start: 01-22-2023 Pacemaker Remote F/U Tamra Grewal MD Work Phone: [facility] Department Start: 01-07-2023 End: 01-07-2023 ambulatory Manav Rajan Other [employer] Other Start: 01-07-2023 Telephone encounter Manav BEY [facility] Start: 01-06-2023 End: 01-06-2023 ambulatory Manav Rajan Other [employer] Other Start: 01-06-2023 Patient encounter procedure Manav Rajan [facility] Start: 01-03-2023 End: 01-03-2023 ambulatory Manav Rajan Other [employer] Other Start: 01-03-2023 Office outpatient vi sit 15 minutes Manav Rajan [facility] Start: 01-02-2023 End: 01-02-2023 ambulatory Manav Rajan Other [employer] Other Start: 01-02-2023 Telephone encounter Manav BEY [facility] Start: 01-01-2023 Follow-up encounter Tamra Grewal MD Work Phone: [facility] Start: 01-01-2023 Pacemaker Remote F/U Tamra Grewal MD Work Phone: [facility] Department Start: 09-30-2022 Follow-up encounter Tamra Grewal MD Work Phone: [facility] Start: 09-30-2022 Pacemaker Remote F/U Tamra Grewal MD Work Phone: [facility] Department Start: 09-04-2022 End: 09-04-2022 ambulatory Manav Rajan Other [employer] Other Start: 09-04-2022 Telephone encounter Manav BE[facility] Start: 08-21-2022 End: 08-21-2022 ambulatory Manav Rajan Other [employer] Other Start: 08-21-2022 Office outpatient vi sit 25 minutes Manav Rajan [facility] Start: 08-20-2022 End: 08-20-2022 Patient encounter procedure Rachid Odell MD Work Phone: Neurology Comment on above: Tremor (Primary Dx); Vertigo Start: 08-15-2022 End: 08-15-2022 ambulatory Manav Rajan Other [employer] Other Start: 08-15-2022 Telephone encounter Manav BEY [facility] Comment on above: Appointment Start: 08-14-2022 End: 08-14-2022 ambulatory Manav Rajan Other [employer] Other Start: 08-14-2022 Nursing evaluation o f patient and report Manav Rajan [facility] Start: 07-29-2022 End: 07-29-2022 ambulatory Manav Rajan Other [employer] Other Start: 07-29-2022 Telephone encounter Manav BEY [facility] Start: 07-17-2022 End: 07-17-2022 ambulatory Manav Rajan Other [employer] Other Start: 07-17-2022 Office outpatient vi sit 15 minutes Manav Rajan [facility] Start: 07-17-2022 Telephone encounter Manav BEY [facility] Start: 07-12-2022 End: 07-12-2022 Emergency department patient visit MANAV RAJAN [facility] Start: 07-12-2022 End: 07-12-2022 Emergency department patient visit Km Jason DO Work Phone: [facility] Comment on above: Dizziness (Primary D x) Start: 07-11-2022 End: 07-12-[address] MANAV RAJAN Facility:[facility] Start: 07-02-2022 End: 07-02-2022 ambulatory Manav Rajan Other [employer] Other Start: 07-02-2022 Telephone encounter Manav Rajan [facility] Start: 07-01-2022 Follow-up encounter Tamra Grewal MD Work Phone: [facility] Start: 07-01-2022 Pacemaker Remote F/U Tamra Grewal MD Work Phone: [facility] Department Start: 06-29-2022 End: 06-29-[address] MANAV RAJAN Facility:[facility] Start: 06-28-2022 End: 06-28-2022 ambulatory Manav Rajan Other [employer] Other Start: 06-28-2022 Telephone encounter Manav Rajan [facility] Start: 06-25-2022 End: 06-25-2022 ambulatory Manav Rajan Other [employer] Other Start: 06-25-2022 Telephone encounter Manav Rajan [facility] Start: 05-01-2022 Follow-up encounter Tamra Grewal MD Work Phone: [facility] Start: 05-01-2022 End: 05-01-2022 Patient encounter procedure Tamra Grewal MD Work Phone: [facility] Comment on above: Pacemaker (Primary D x) Start: 04-01-2022 Follow-up encounter Tamra Grewal MD Work Phone: [facility] Start: 04-01-2022 Pacemaker Remote F/U Tamra Grewal MD Work Phone: [facility] Department Start: 01-24-2022 End: 01-24-2022 Patient encounter procedure Rachid Odell MD Work Phone: Neurology Comment on above: Essential tremor (Pr imary Dx) Start: 01-07-2022 End: 01-08-[address] MANAV RAJAN Facility:[facility] Start: 12-31-2021 Follow-up encounter Tamra Grewal MD Work Phone: [facility] Start: 12-31-2021 Pacemaker Remote F/U Tamra Grewal MD Work Phone: [facility] Department Start: 11-23-2021 End: 11-23-2021 Patient encounter procedure Natalie MICHEL [facility] Start: 11-20-2021 End: 11-21-[address] MANAV RAJAN Facility:[facility] Start: 10-09-2021 End: 10-09-2021 ambulatory Mook Santiago Other [employer] Other Start: 10-09-2021 Office outpatient ne w 45 minutes Mook Santiago [facility] Start: 08-21-[address] MANAV RAJAN Facili ty:[facility] Start: 05-15-2020 End: 05-15-2020 Subsequent hospital visit by physician Linda Cottrell 1 Work Phone: Radiology Comment on above: Carpal tunnel syndro me of right wrist [G56.01] Start: 07-14-2017 Ambulatory [facility] Procedures Date Procedure Procedure Detail Performing Clinician Start: 10-05-2024 Ultrasonography of b ilateral kidneys Manav Rajan DO Work Phone: Start: 08-03-2024 Cystoscopy Manav B all DO Work Phone: Start: 07-23-2024 Urine culture Manav Rajan DO Work Phone: Start: 07-22-2024 Cystoscopy Manav B all DO Work Phone: Start: 07-21-2024 CT of abdomen and pe lvis without contrast Manav Rajan DO Work Phone: Start: 07-21-2024 Urine culture Manav Rajan DO Work Phone: Start: 07-19-2024 Urine culture Manav Rajan DO Work Phone: Start: 07-09-2024 Urine culture Manav Rajan DO Work Phone: Start: 07-02-2023 PACEMAKER REMOTE CHECK Tamra Grewal [...] Radiologic exam ches t 2 views Km Jason DO Work Phone: Start: 07-12-2022 C-reactive protein h igh sensitivity Km Jason DO Work Phone: Start: 07-12-2022 Comprehensive metabo lic panel Km Jason DO Work Phone: Start: 07-12-2022 Urinalysis microscopic only Km Jason DO Work Phone: Start: 07-12-2022 Urnls dip stick/tabl et rgnt auto w/o microscopy Km Jason DO Work Phone: Start: 07-01-2022 PACEMAKER REMOTE CHECK Tamra Grewal MD Work Phone: Start: 05-01-2022 PACEMAKER CLINIC CHECK Tamra Grewal MD Work Phone: Start: 04-01-2022 PACEMAKER REMOTE CHECK Tamra Grewal MD Work Phone: Start: 12-31-2021 PACEMAKER REMOTE CHECK Tamra Grewal MD Work Phone: Start: 05-15-2020 Radex wrist 2 views Gabe Johnson MD Work Phone: Start: 10-24-2016 Cystoscopic [...] microalbumin profile DTaP,Tdap,Td Vaccine (2 - Tdap) [facility] Start: 07-12-2025 Diabetes Screening Diabetes Screenin g [facility] Start: 03-03-2025 End: 03-03-2025 Patient encounter procedure 03/03/2025 3:00 PM EDT Office Visit Neurology [address] [place] [address] [place] [address] [place] [address] 6 mos tremors followup Neurology Comment on above: 6 mos tremors follow up Start: 08-20-2024 End: 08-20-2024 Patient encounter procedure 08/20/2024 2:20 PM EDT Office Visit Neurology [address] [place] [address] [place] [address] [place] [address] 6 Month Follow Up Neurology Comment on above: 6 Month Follow Up Start: 08-03-2024 [facility] Start: 08-03-2024 Plain X-ray abdomen XR abdomen 1V [facility] Start: 08-03-2024 XR Abdomen Single view [facility] Start: 08-03-2024 [facility] Start: 07-23-2024 Bacteria identified in Urine by Culture Urine Culture [facility] Start: 07-23-2024 [facility] Start: 07-23-2024 Urine culture [facility] Start: 07-22-2024 End: 07-22-2024 [facility] Start: 07-21-2024 Referral to urologist [facility] Start: 07-21-2024 [facility] Start: 07-21-2024 Hospital admission [facility] Start: 07-21-2024 Bacteria identified in Urine by Culture Urine Culture [facility] Start: 07-21-2024 Dilation of Left Ureter, Via Natural or Artificial Opening Endoscopic Dilation of Left Ureter, Via Natural or Artificial Opening Endoscopic [facility] Start: 07-21-2024 Fluoroscopy of Kidne ys, Ureters and Bladder using Low Osmolar Contrast Fluoroscopy of Kidneys, Ureters and Bladder using Low Osmolar Contrast [facility] Start: 07-21-2024 Urine culture [facility] Start: 07-19-2024 Bacteria identified in Urine by Culture Urine Culture [facility] Start: 07-19-2024 Urine culture [facility] Start: 07-09-2024 Urine culture [facility] Start: 07-09-2024 Bacteria identified in Urine by Culture Urine Culture [facility] Start: 05-12-2024 Advance Directive Discussion Advance Directive Discussion [facility] Start: 04-19-2024 End: 04-19-2024 Patient encounter procedure Cardiology Comment on above: Device Check Return in 1 year (ar ound 04/16/24) with device check Start: 02-20-2024 End: 02-20-2024 Patient encounter procedure 02/20/2024 2:20 PM EDT Office Visit Neurology [address] [place] [address] [place] [address] [place] [address] Return in about 6 months (around 02/21/2024). Neurology Comment on above: Return in about 6 mo nths (around 02/21/2024). Start: 01-11-2024 Covid-19 Vaccine () Covid-19 Vaccine () [facility] Start: 01-11-2024 Influenza vaccination [facility] Start: 05-12-2023 Advance Directive Discussion Advance Directive Discussion [facility] Start: 05-03-2023 Bacteria identified in Urine by Culture [facility] Start: 01-10-2023 Covid-19 Vaccine () Covid-19 Vaccine () [facility] Start: 01-10-2023 Influenza vaccination [facility] Start: 05-12-2022 ADVANCE DIRECTIVE DISCUSSION ADVANCE DIRECTIVE DISCUSSION [facility] Start: 01-10-2022 Influenza vaccination INFLUENZA (#1) [facility] Start: 12-10-2021 Influenza vaccination Flu vaccine (# 1) [facility] Start: 05-12-2021 ADVANCE DIRECTIVE DISCUSSION ADVANCE DIRECTIVE DISCUSSION [facility] Start: 01-15-2021 COVID-19 VACCINE (3 - Booster for Pfizer series) COVID-19 VACCINE (3 - Booster for Pfizer series) [facility] Start: 10-10-2020 COVID-19 VACCINE (3 - Booster for Pfizer series) COVID-19 VACCINE (3 - Booster for Pfizer series) [facility] Start: 10-10-2020 Covid-19 Vaccine (3 - Pfizer series) Covid-19 Vaccine (3 - Pfizer series) [facility] Start: 09-04-2019 DIABETES SCREEN DIABETES SCREEN [facility] Start: 09-04-2019 Diabetes Screening Diabetes Screenin g [facility] Start: 2017 RSV Vaccine (1 - 1-d ose 75+ series) RSV Vaccine (1 - 1-dose 75+ series) [facility] Start: 02-25-2014 Pneumococcal Vaccine : 50+ (2 of 2 - PCV) Pneumococcal Vaccine: 50+ (2 of 2 - PCV) [facility] Start: 02-25-2014 Pneumococcal Vaccine : 65+ (2 - PCV) Pneumococcal Vaccine: 65+ (2 - PCV) [facility] Start: 02-25-2014 Pneumococcal Vaccine : 65+ (2 of 2 - PCV) Pneumococcal Vaccine: 65+ (2 of 2 - PCV) [facility] Start: 02-25-2014 PNEUMOCOCCAL: 65+ (2 - PCV) PNEUMOCOCCAL: 65+ (2 - PCV) [facility] Start: 2007 BONE DENSITY BONE DENSITY [facility] Start: 2007 Bone Density Screening Bone Density Screening [facility] Start: 2007 Screening for osteoporosis Bone Density Screening [facility] Start: 2002 RSV Vaccine (1 - 1-d ose 60+ series) RSV Vaccine (1 - 1-dose 60+ series) [facility] Start: 1997 Screening for osteoporosis DEXA (modify frequency per FRAX score) [facility] Start: 1992 Shingles vaccine (1 of 2) Shingles vaccine (1 of 2) [facility] Start: 1992 SHINGRIX VACCINE (1 of 2) SHINGRIX VACCINE (1 of 2) [facility] Start: 1961 DTaP/Tdap/Td vaccine (1 - Tdap) DTaP/Tdap/Td vaccine (1 - Tdap) [facility] Start: 1961 Urine microalbumin profile [facility] Start: 1960 ANNUAL PCP 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 RAMO DISEASE VISIT ANNUAL PCP TEAM CHRONIC DISEASE VISIT [facility] Start: 1960 Anxiety Screening Anxiety Screening [facility] Start: 1960 BP CONTROLLED (<130/80) BP CONTROLLE D (<130/80) [facility] Start: 1952 Depression Screen Depression Screen [facility] [employer] An[employer] gap measurement [facility] Basophils [#/volume] in Blood by Automated count [facility] Basophils/100 leukocytes in Blood by Automated count [facility] End: 07-12-2022 Culture, Blood 1 [facility] [employer] Work Phone: Comment on above: One Time for 1 Occur rences starting 07/12/2022 until 07/12/2022 End: 07-12-2022 Culture, Blood 2 [facility] Work Phone: Comment on above: One Time for 1 Occur rences starting 07/12/2022 until 07/12/2022 ECG COMPLETE ECG COMPLETE ECG Routine Pacemaker Ordered: 04/16/2023 [facility] Work Phone: Comment on above: Ordered: 04/16/2023 Eosinophils/100 leukocytes in Blood by Automated count [facility] Erythrocyte distribution width [Ratio] by Automated count [facility] Erythrocytes [#/volu me] in Blood [facility] Hematocrit [Volume Fraction] of Blood [facility] Hemoglobin [Mass/volume] in Blood [facility] Leukocytes [#/volume ] corrected for nucleated erythrocytes in Blood by Automated coun [facility] Leukocytes [#/volume ] in Blood [facility] Lymphocytes [#/volum e] in Blood by Automated count [facility] Lymphocytes/100 leukocytes in Blood by Automated count [facility] MCH [Entitic mass] b y Automated count [facility] MCHC [Mass/volume] b y Automated count [facility] MCV [Entitic volume] by Automated count [facility] Monocytes [#/volume] in Blood by Automated count [facility] Monocytes/100 leukocytes in Blood by Automated count [facility] Neutrophils [#/volum e] in Blood by Automated count [facility] Neutrophils/100 leukocytes in Blood by Automated count [facility] Nucleated erythrocyt es [Presence] in Blood by Automated count [facility] Patient Education [facility] Work Phone: Patient referral [facility] Work Phone: Platelet mean volume [Entitic volume] in Blood by Automated count [facility] Platelets [#/volume] in Blood [facility] Urine culture [facility] XR Chest 2 Views [facility] Immunizations Immunization Date Immunization Notes Care Provider Fa jaida 08-15-2020 SARS-CoV-2 (COVID-19 ) mRNA BNT-162b2 vax Jessica Lue [facility] 07-24-2020 SARS-CoV-2 (COVID-19 ) mRNA BNT-162b2 vax Jessica Lue [facility] 11-25-2016 diphtheria, tetanus toxoids and acellular pertussis vaccine, unspecified formulation Manav Rajan Other [facility] 02-25-2013 pneumococcal polysaccharide vaccine, 23 valent Tamra Grewal MD Work Phone: [facility] 01-11-2011 tuberculin skin test ; purified protein derivative solution, intradermal Gurpreet Cruz APRN.CNP Work Phone: [facility] Payers Date Payer Category Payer Unknown [id number] 2024 Self-pay 2016 Private Health Insurance [id number] 2007 Medicare [id number] 1959 Medicare [id number] 1959 Self-pay [id number] 1959 Unknown [id number] 2.16.840.1.735718.19 1942 Unknown [id number] 2.16.840.1.024729.3.579.2.5 93 1942 Unknown [id number] 2.16.840.1.312933.3.579.2.5 1942 Unknown [id number] 2.16.840.1.219801.3.579.2.5 1942 Unknown [id number] 2.16.840.1.121627.3.579.2.5 1942 Unknown [id number] 2.16.840.1.906270.3.579.2.5 1942 Unknown [id number] 2.16.840.1.523334.3.579.2.1 1942 Unknown [id number] 2.16.840.1.902164.3.579.2.7 1942 Unknown [id number] 2.16.840.1.732277.3.579.2.7 1942 Unknown [id number] 2.16.840.1.801873.3.579.2.7 1942 Unknown [id number] 2.16.840.1.845521.3.579.2.7 1942 Unknown [id number] 2.16.840.1.111472.3.579.2.7 1942 Unknown [id number] 2.16.840.1.002516.3.579.2.7 1942 Unknown [id number] 2.16.840.1.239475.3.579.2.7 1942 Unknown [id number] 2.16.840.1.615091.3.579.2.7 1942 Unknown [id number] 2.16.840.1.324561.3.579.2.7 27 Medicare [id number] 2.16.840.1.019511.19 Private Health Insurance [facility] [id number] Unknown [facility] Health Claims [id number] Unknown [id number] 2.16.840.1.451315.3.579.2.5 31 Unknown [id number] 2.16.840.1.492240.3.579.2.5 31 Unknown [id number] 2.16.840.1.015214.3.579.2.5 31 Unknown [id number] 2.16.840.1.626134.3.579.2.5 31 Unknown [id number] 2.16.840.1.281504.3.579.2.5 31 Social History Date Type Detail Facility Unknown if ever smoked [employer] Other Start: 08-20-2022 End: 02-20-2023 Sex Assigned At [employer] Other Start: 11-23-2021 End: 10-28-2024 Tobacco smoking status Never smoked tobacco (finding) [facility] Start: 04-22-2017 End: 01-24-2022 Tobacco use and exposure Smokeless tobacco non-user [facility] Start: 07-24-2021 End: 07-14-2024 Alcohol intake Current non-drinker of alcohol (finding) [facility] Start: 1940 Sex Assigned At Not on file [facility] Start: 04-15-2020 End: 07-12-2022 Exposure to SARS-CoV-2 (event) Not sure [facility] Start: 08-20-2022 End: 02-20-2023 History of Social function [facility] National Score (1-10 0), lower number is lower risk 62 [facility] Mark Start: 1940 Sex Assigned At Female [facility] Start: 08-23-2009 End: 03-22-2024 Sex Female (finding) [facility] Sexual Orientation [facility] Medical Equipment Procedure Code Equipment Code Equipment Origin al Text Equipment Identifier Dates Cystoscopy, with ureteral calculus manipulation and stent placement Polymeric ureteral stent ()[id number] FDA Start: 07-22-2024 Cystoscopy, with ureteral calculus manipulation and stent placement Polymeric ureteral stent ()[id number] FDA Start: 08-03-2024 Cochlear Drill Countersink 4mm - [id number] Start: 06-26-2009 Cochlear Flange Fix Str 4mm - [id number] Start: 06-26-2009 Seq-Zy-O-Kind Implant - [id number] Start: 01-07-2011 Comment on above: Description: Surgica l simplex P Radiopaque bone cement Comp Fem 5 Rt Kn Cr Jim Trthln - [id number] Start: 01-07-2011 Ins Tib 4 11mm K n X3 Cr Trthln - [id number] Start: 01-07-2011 Comp Pat 10mm 35 mm Asym Trthln - [id number] Start: 01-07-2011 Baseplt Tib Trth ln 4 Prim - [id number] Start: 01-07-2011 Blood Sugar Diagnostic (True [...] Test Strip) strip Start: 07-03-2023 End: 08-06-2023 [id number] [facility] [id number] Start: 02-27-2015 [id number] [id number] Start: 02-27-2015 [id number]-2240 [id number] Start: 02-27-2015 USE 1 STRIP TO [...] (True Metrix Glucose Test Strip) strip Start: 09-03-2024 Blood Sugar Diagnostic (True Metrix Glucose Test Strip) strip Start: 06-30-2023 End: 07-01-2023 Blood Sugar Diagnostic (True Metrix Glucose Test Strip) strip Start: 07-01-2023 End: 07-03-2023 Blood Sugar Diagnostic (True Metrix Glucose Test Strip) strip Start: 07-03-2023 End: 08-06-2023 Blood Sugar Diagnostic (True Metrix Glucose Test Strip) strip Start: 08-06-2023 End: 09-03-2024 Goals Date Patient Goal Desired Activity /State Personal health goal Functional Status Date Assessment Result Facility 08-23-2024 Functional Status N/A [facility] 08-16-2024 Functional Status N/A [facility] 07-23-2024 Functional status Patient at Baseline [facility] Work Phone: 07-21-2024 Functional status Patient at Baseline [facility] Work Phone: 04-17-2023 Functional Status N/A [facility] [place] 11-23-2021 Functional Status N/A [facility] 02-28-2015 Are you deaf, or do you have serious difficulty hearing No 02/28/2015 6:30 PM EDT Alla Jay (Rn)(Hist), RN No [facility] 02-28-2015 Are you blind, or do you have serious difficulty seeing, even when wearing glasses No 02/28/2015 6:30 PM EDT Alla JayRn)(Hist), RN No [facility] 02-28-2015 Do you have serious difficulty walking or climbing stairs No 02/28/2015 6:30 PM EDT Alla Jay (Rn)(Hist), RN No [facility] 02-28-2015 Do you have difficul ty dressing or bathing No 02/28/2015 6:30 PM EDT Alla Jay (Rn)(Hist), RN No [facility] 02-28-2015 Because of a physica l, mental, or emotional condition, do you have difficulty doing errands alone such as visiting a physician's office or shopping No 02/28/2015 6:30 PM EDT Alla Jay (Rn)(Hist), RN No [facility] Mental Status Date Assessment Result Facility 07-23-2024 Cognitive function Cognitive Sta tus Patient at Baseline [facility] Work Phone: 07-21-2024 Cognitive function Cognitive Sta tus Patient at Baseline [facility] Work Phone: 02-28-2015 Because of a physica l, mental, or emotional condition, do you have serious difficulty concentrating, remembering, or making decisions No 02/28/2015 6:30 PM EDT Alla JayRn)(Hist), RN No [facility] Clinical Notes 10-09-2021 to 10-28-2024 Rachid Odell MD - 08/25/2024 10:21 AM EDTTelephone Encounter - Meghan Carrion - 08/25/2024 9:31 AM EDTTelephone Encounter - Meghan Carrion - 08/25/2024 9:31 AM EDT Note Date & Type Note Facility 10-28-2024 Hospital Discharg e instructions Patient Education 10/28/2024 11:00:58 Dietary Guidelines to Help Prevent Kidney Stones [...] calcium at each meal. Foods that contain 200 500 mg of calcium a serving include: ?8 oz (237 mL) of milk, xumoijx-lafylpcjrddl-ubntp milk, and calcium-fortifiedfruit juice. Calcium-fortified means that calcium has been [...] to add their own salt to taste. Use vegetable protein, such as beans, textured vegetable protein (TVP), or tofu, instead of meat in pasta, casseroles, and soups. Meal planning Eat less salt, if told by your dietitian. To do this: ?Avoid eating processed or pre-made food. ?Avoid eating fast food. Eat less animal protein, including cheese, meat, poultry, or fish, if told by your dietitian. To do this: ?Limit the number of times you have [...] ?Spinach (cooked), rhubarb, beets, sweet potatoes, and Prydeinig chard. ?Peanuts. ?Potato chips, vietnamese fries, and baked potatoes with skin on. ?Nuts and nut products. ?Chocolate. If you regularly take a diuretic medicine, make sure to eat at least 1 or 2 servings of fruits or vegetables that are high in potassium each day. These include: ?Avocado. ?Banana. ?Hudson, prune, carrot, or tomato juice. ?Baked potato. [...] magnesium, fish oil, or vitamin B6. Take cmzu-ozq-olnoqpb and prescription medicines only as told by [...] Casseroles. Pizza. Lasagna. Frozen meals. Potato chips. Ivorian fries. The items listed above may not be a complete list of foods and beverages you should limit. Contact a dietitian for more information. What foods should I avoid? Talk to your dietitian about specific foods you should avoid based on the type of kidney stones you have and your overall health. Fruits Grapefruit. The item listed above may not be a complete list of foods and beverages you should avoid. Contact a dietitian for more information. Summary Kidney stones are [...] provider. Document Revised: 08/08/2022 Document Reviewed: 08/08/2022 [employer] Patient Education 2023 [employer]. Follow Up Care 08/23/2024 10:44:19 With:Royer ALMARAZ, REX Wharton, URO Address: When: Unknown [facility] 10-28-2024 Note Patient Education Nephrology Dietary Guidelines to Help [...] for following this plan? Reading food labels ??? Choose foods with no salt added or low-salt labels. Limit your salt (sodium) intake to less than 1,500 mg a day. ??? Choose foods with calcium for each meal and snack. Try to eat about 300 mg of calcium at each meal. Foods that contain 200?500 mg of calcium a serving include: ? 8 oz (237 mL) of milk, ngwwldv-mafxkoazbirr-deeyo milk, and calcium-fortifiedfruit juice. Calcium-fortified means that calcium has been [...] much calcium is recommended for you. Shopping ??? Buy plenty of fresh fruits and vegetables. Most people do not need to avoid fruits and vegetables, even if these foods contain nutrients that may contribute to kidney stones. ??? When shopping for convenience foods, choose: ? Whole pieces of fruit. ? Pre-made salads with dressing on the side. ? Low-fat fruit and yogurt smoothies. ??? Avoid buying frozen meals or prepared deli foods. These can be high in sodium. ??? Look for foods with live cultures, such as yogurt and kefir. ??? Choose high-fiber grains, such as whole-wheat breads, oat bran, and wheat cereals. Cooking ??? Do not add salt to food when cooking. Place a salt shaker on the table and allow each person to add their own salt to taste. ??? Use vegetable protein, such as beans, textured vegetable protein (TVP), or tofu, instead of meat in pasta, casseroles, and soups. Meal planning ??? Eat less salt, if told by your dietitian. To do this: ? Avoid eating processed or pre-made food. ? Avoid eating fast food. ??? Eat less animal protein, including cheese, meat, [...] size of the palm of your hand. ??? Eat at least five servings of fresh fruits and vegetables each day. To do this: ? Keep fruits and vegetables on hand for snacks. ? Eat one piece of fruit or a handful of berries with breakfast. ? Have a salad and fruit at lunch. ? Have two kinds of vegetables at dinner. ??? You may be told to limit foods that are high in a substance called oxalate. These include: ? Spinach (cooked), rhubarb, beets, sweet potatoes, and Prydeinig chard. ? Peanuts. ? Potato chips, vietnamese fries, and baked potatoes with skin on. ? Nuts and nut products. ? Chocolate. ??? If you regularly take a diuretic medicine, make sure to eat at least 1 or 2 servings of fruits or vegetables that are high in potassium each day. These include: ? Avocado. ? Banana. ? Hudson, prune, carrot, or tomato juice. ? Baked potato. ? Cabbage. ? Beans and split peas. Lifestyle ??? Drink enough fluid to keep your urine pale yellow. This is the most important thing you can do. Spread your fluid intake throughout the day. ??? If you drink alcohol: ? Limit how [...] oz glass of hard liquor (44 mL). ??? Lose weight if told by your health care provider. Work with your dietitian to find an eating plan and weight loss strategies that work best for you. General information ??? Talk to your health care provider and [...] as magnesium, fish oil, or vitamin B6. ??? Take bimi-qqg-bkmkrid and prescription medicines only as told by your health (more content not included)... [facility] 10-05-2024 Radiology Diagnostic study note [facility] [place] [address] Ultrasound Report Signed Patient: Rufino Collins MR#: [id number] : 1940 Acct:[id number] Age/Sex: 84 / F ADM Date: Loc: UL Room: Type: [facility] CLI Attending Dr: Jessica Linton MD Ordering Provider: Jessica Linton MD Date of Service: 10/05/24 US/US renal BI: N20.0 Copies to: Jessica Linton MD~ BILATERAL RENAL AND BLADDER ULTRASOUND CLINICAL HISTORY: History of kidney stones COMPARISON: CT 07/21/2024 Estimation of renal size is approximately 11.1 cm on the right and 11.0 cm on the left. There are small echogenic corticomedullary foci bilaterally that may be stones. There is minor left pelvocaliectasis. There is no hydronephrosis onthe right. A parapelvic right mid to lower pole renal cyst is noted measuring just over 2 cm in size. A tiny cyst is also visualized at the inferior pole on the left measuring 12 mm . There is no perinephric fluid. The urinary bladder is partially distended with a volume of 311 mL. The horticultural technical officer described echogenic foci along the posterior bladder wall. Bladder stones are difficult to exclude on the basis of this study. No other contour orintraluminal abnormalities are seen. The post void bladder residual is 105 mL US/US renal BI IMPRESSION: POSSIBLE NEPHROLITHIASIS AND BLADDER STONES. RENAL CYSTS. MINIMAL LEFT PELVOCALIECTASIS. POST VOID BLADDER RESIDUAL. Impression dictated by: Alla Putnam M.D. 10/05/2024 2:56 PM Dictation Location: [place] [address] Tech: Shirin Goldy Transcribed By: ADRIANO 10/05/24 145 Dictated By: Alla Putnam MD 10/05/24 1448 Signed By: 10/05/24 145 [facility] Work Phone: 08-25-2024 Note HNO ID: [id number] Author: RACHID ODELL MD Service: ? Author Type: Physician Type: Progress Notes Filed: 08/25/2024 10:35 Note Text: NEUROLOGY PROGRESS NOTE Rufino Collins is a 84 year old female. Who has a history of tremors comes in for phone visit. Interval History Rufino Collins is a 84 year old female, with a history of [...] sometimes difficulty with balance. Patient doing well with 10 mg 4 times a day of propranolol as well as paresthesias are responding to nortriptyline. Both with these medications will be refilled. ACTIVE PROBLEM LIST Hearing Loss, Sensorineural, [...] on File Prior to Visit Medication Sig tolterodine (DETROL) 2 mg tablet TRUE METRIX GLUCOSE TEST STRIP test strip [...] daily. Patient denies taking this any longer No current facility-administered medications on file prior [...] for this visit. IMPRESSION: 1. Essential tremor 2. Paresthesias of the skin PLAN: As above. Any problems or concerns to call me or primary care physician immediately or go straight to the emergency department Follow-up in 6 months Rachid Odell MD I spent a total of 30 minutes on the date of the service which included preparing to see the patient, completing clinical documentation, obtaining and/or reviewing separately obtained history, counseling and educating the patient/family/caregiver, and ordering medications, tests, or procedures. SIGNATURE: Rachid Odell MD PATIENT NAME: Rufino Collins DATE: August 25, 2024 TIME: 10:22 AM [facility] 08-25-2024 History of Presen t illness Narrative NEUROLOGY PROGRESS NOTE Rufino Collins is a 84 year old female. Who has a history of tremors comes in for phone visit. Interval History Rufino Collins is a 84 year old female, with a history of [...] sometimes difficulty with balance. Patient doing well with 10 mg 4 times a day of propranolol as well as paresthesias are responding to nortriptyline. Both with these medications will be refilled. ACTIVE PROBLEM LIST Hearing Loss, Sensorineural, [...] on File Prior to Visit Medication Sig tolterodine (DETROL) 2 mg tablet TRUE METRIX GLUCOSE TEST STRIP test strip [...] daily. Patient denies taking this any longer No current facility-administered medications on file prior [...] for this visit. IMPRESSION: 1. Essential tremor 2. Paresthesias of the skin PLAN: As above. Any problems or concerns to call me or primary care physician immediately or go straight to the emergency department Follow-up in 6 months Rachid Odell MD I spent a total of 30 minutes on the date of the service which included preparing to see the patient, completing clinical documentation, obtaining and/or reviewing separately obtained history, counseling and educating the patient/family/caregiver, and ordering medications, tests, or procedures. SIGNATURE: Rachid Odell MD PATIENT NAME: Rufino Collins DATE: August 25, 2024 TIME: 10:22 AM documented in this encounter [facility] 08-25-2024 Telephone encounter Note Rufino is calling Rachid Odell MD today with concern regarding appt today. She cannot get Zoom to download on her computer. She is hoping provider would be able to just do a phone call visit? Please advise Patient has been identified by name and birthdate. Duration of symptoms: N/A Person calling: self Call patient at: at home [phone] (home) [phone] (cell) Was an appointment scheduled: No Closing statement: Results or non-symptom based questions: Thank you for calling [facility], your call will be returned within the next business day. Meghan Carrion [facility] 08-25-2024 Miscellaneous Notes Rufino is calling Rachid Odell MD today with concern regarding appt today. She cannot get Zoom to download on her computer. She is hoping provider would be able to just do a phone call visit? Please advise Patient has been identified by name and birthdate. Duration of symptoms: N/A Person calling: self Call patient at: at home [phone] (home) [phone] (cell) Was an appointment scheduled: No Closing statement: Results or non-symptom based questions: Thank you for calling [facility], your call will be returned within the next business day. Meghan Carrion documented in this encounter [facility] 08-23-2024 Evaluation + Plan note Extrac christo from: Title:[facility] Note Author:Royer ALMARAZ, Jessica Garza Date:08/23/24 Impression and Plan Assessment and Plan: Diagnosis: Vaginal atrophy ([id number]-UW N95.2, Discharge, Medical), Recurrent UTI (QJH17-ZA N39.0, Discharge, Medical), History of kidney stones (LJO61-LP Z87.442, Discharge, Medical), Encounter for removal of ureteral stent (ONZ13-QL Z46.6, Discharge, Medical), Bladder wall thickening (GFF36-ES N32.89, Discharge, Medical). 84-year-old female seen during consultation for UTI, left hydroureteronephrosis down to the bladder wall with asymmetric thickening and a 10 x 7 mm left renal pelvis stone s/p stent 07/21/24. She underwent treatment and is here today for stent removal. She also has other urologic issues as below. 1. Recurrent UTIs/vaginal atrophy- Severe vaginal atrophy on exam. Stage 2 cystocele/stage 3 rectocele noted intraop. 10% of women over the age of 60 will have recurrent urinary tract infection - 2 or more urinary tract infection in 6 months or 3 or more per year. We discussed multiple etiologies including constipation, voiding dysfunction, incomplete bladder emptying, fecal incontinence, uncontrolled diabetes and vaginal atrophy. I explained the lack of estrogen secondary to menopause causes changes in the vaginal epithelium that can predispose to lower urinary tract symptoms, vaginal discomfort, urinary incontinence, dyspareunia, and recurrent urinary tract infections. Because of these changes to the vaginal tissues the lactobacilli (good bacteria) fail to thrive. The pH of the vagina rises making it easier for harmful bacteria to colonize the vagina. Recommendations discussed: -Start estrace cream, sent to pharmacy. Patient was told to apply a pea-sized amount 3 times weekly at night for 4 weeks and then 2 times per week thereafter, may take up to 3 months for full effect. This has been shown to reduce frequency of UTIs by up to 70%. She was reassured that there is minimal systemic absorption with application of vaginal estrogen cream and most of the benefits will be to the local tissues. She should stop medication and notify us if she feels breast tenderness or has vaginal spotting. -Timed voids, bladder emptying maneuvers Consider in the future: - Cranberry extract pills - D-mannose 2 g daily - Lactobacillus probiotic gel caps orally or vaginally daily x 10 days followed by weekly for 10 weeks as this has been shown to reduce the risk of UTI by half. Patient can consider a weekly booster as well if successful. - Hiprex (methenamine hippurate) or daily antibiotic prophylaxis may be added to the regimen should the patient continue to have urinary tract infections on her current regimen. Urine pH should be 5.5 or lower, may need to start Vitamin C 1-2g QD to QID to acidify urine. - If she continues to demonstrate positive urine cultures with positive urinalysis, a complete workup, including a stone protocol CT and cystoscopy would be reasonable next step. 2. Bladder wall thickening -likely due to severe infection, bladder biopsy 08/03/24 benign -acute and chronic inflammation. Inflammation significantly improved after antibiotic treatment. -Continue symptomatic monitoring - UTI prevention 3. History of kidney stones, encounter for stent removal Cystoscopy, left ureteroscopy laser lithotripsy stent exchange on 08/03/2024 for a 10 x 7 mm left renal pelvis stone -dusted. Patient did not see any fragments afterwards. Stent removed today without issues Discussed general dietary prevention for kidney stones. - Obtain renal ultrasound at [facility] in 6 weeks to ensure no stone obstruction develops. Review at f/u appt Future Appointments Appointment Date:10/28/2024 10:15:00 AM Scheduled Provider:Jessica Linton MD Location:[facility] Appointment Type:URO Office Visit [facility] 04-14-2025 Hospital Discharge instructions Patient Education 08/23/2024 10:23:18 EU - Cystoscopy with Stent Removal Discharge Instructions (CUSTOM) Cystoscopy with Stent Removal Voiding after the procedure: there may be some pain, burning, urgency, frequency and blood tinged urine following the procedure. These symptoms usually resolve within 2-5 days. Drink the amount of fluid it takes to keep the urine pink to yellow or clear in color. Drinking enough water and fluids will help to ease any discomfort after your procedure. If you are having problems that seem out of the ordinary, please call. If unable to contact your physician and you feel it is an emergency, go to the nearest emergency room or call 911 Diet you may resume your normal diet. Activity you may resume your normal activities Call if you have a fever over 100 degrees. Follow Up Care 08/16/2024 10:41:31 With:Jessica Linton Address: [address] [place] [address]- [phone] Business (1) When: Unknown Comments:Office to schedule follow up in 2 months to review renal US and other urologic issues. Obtain renalUS at [facility] in 6 weeks or just prior to appointment [facility] 04-14-2025 NoteProgress Note-Physician Patient: RUFINO COLLINS Age: 84 years Sex: Female : 1940 Associated Diagnoses: None Author: Lue MD, Jessica M. Health Status Allergies: Allergic Reactions (Selected) Severity Not Documented Avelox- Unknown. Peppers- Unknown. Percocet 5/325- Unknown. Sulfa drugs- Unknown., Allergies (4) Active Severity Reaction sulfa drugs Unknown Avelox Unknown Peppers Unknown Percocet 5/325 Unknown Current medications: (Selected) Prescriptions Prescribed Estrace 0.1 mg/g Cream: See Instructions, 42.5 gm, Refill(s) 2, Apply pea sized amount to urethra/vagina 3x a week for 1 month, then 2x a week afterwards, [id number], cm, 08/23/24 10:00:00 EDT, Height/Length Dosing, 105, kg, 08/23/24 10:00:00 EDT, Weight Dosing cefdinir 300 mg Cap: 300 mg = 1 cap(s), Oral, q12hr, X 7 day(s), # 14 cap(s), Refills(s) 0, [id number], 172, cm, 08/16/24 10:45:00 EDT, Height/Length Dosing, 100, kg, 08/16/24 10:45:00 EDT, Weight Dosing chlorthalidone 25 mg Tab: 25 mg = 1 tab(s), Oral, Daily, # 30 tab(s), Refills(s) 6, [id number], 170, cm, 04/17/23 9:22:00 EST, Height/Length Dosing, 113.9, kg, 04/17/23 9:22:00 EST,Weight Dosing doxycycline monohydrate 100 mg oral tablet: 100 mg = 1 tab(s), Oral, BID, X 7 day(s), # 14 tab(s), Refills(s) 0, [id number], 172, cm, 08/16/24 10:45:00 EDT, Height/Length Dosing, 100, kg, 08/16/24 10:45:00 EDT, Weight Dosing fluconazole 150 mg Tab: 150 mg = 1 tab(s), Oral, Once, # 1 tab(s), Refills(s) 0, [id number], 172, cm, 08/16/24 10:45:00 EDT, Height/Length Dosing, 100, kg, 08/16/24 10:45:00 EDT, Weight Dosing Documented Medications Documented B-Complex SR: tab(s), Oral, Daily, Refill(s) 0 Synthroid: Oral, Daily, Refills(s) 0 busPIRone: Oral, BID, Refills(s) 0 dicyclomine 10 mg Cap: Refills(s) 0 nortriptyline 10 mg Cap: Refills(s) 0 pantoprazole: Daily, Refills(s) 0 propranolol: Refills(s) 0 Impression and Plan Assessment and Plan: Diagnosis: Vaginal atrophy (KJM33-JX N95.2, Discharge, Medical), Recurrent UTI(EIR37-ES N39.0, Discharge, Medical), History of kidney stones (RBV63-CC Z87.442, Discharge, Medical), Encounter for removal of ureteral stent (QRX52-KW Z46.6, Discharge, Medical), Bladder wall thickening (VOD16-SL N32.89, Discharge, Medical). 84-year-old female seen during consultation for UTI, left hydroureteronephrosis down to the bladderwall with asymmetric thickening and a 10 x 7 mm left renal pelvis stone s/p stent 07/21/24. She underwent treatment and is here today for stent removal. She also has other urologic issues as below. 1. Recurrent UTIs/vaginal atrophy- Severe vaginal atrophy on exam. Stage 2 cystocele/stage 3 rectocele noted intraop. 10% of women over the age of 60 will have recurrent urinary tract infection - 2 or more urinary tract infection in 6 months or 3 or more per year. We discussed multiple etiologies including constipation, voiding dysfunction, incomplete bladder emptying, fecal incontinence, uncontrolled diabetes andvaginal atrophy. I explained the lack of estrogen secondary to menopause causes changes in the vaginal epithelium that can predispose to lower urinary tract symptoms, vaginal discomfort, urinary incontinence, dyspareunia, and recurrent urinary tract infections. Because of these changes to the vaginal tissues the lactobacilli (good bacteria) fail to thrive. The pH of the vagina rises making it easier for harmful bacteria to colonize the vagina. Recommendations discussed: -Start estrace cream, sent to pharmacy. Patient was told to apply a pea-sized amount 3 times weeklyat night for 4 weeks and then 2 times per week thereafter, may take up to 3 months for full effect.This has been shown to reduce frequency of UTIs by up to 70%. She was reassured that there is minimal systemic absorption with application of vaginal estrogen cream and most of the benefits will be to the local tissues. She should stop medication and notify us if she feels breast tenderness or has vaginal spotting. -Timed voids, bladder emptying maneuvers Consider in the future: - Cranberry extract pills - D-mannose 2 g daily - Lactobacillus probiotic gel caps orally or vaginally daily x 10 days followed by weekly for 10 weeks as this has been shown to reduce the risk of UTI by half. Patient can consider a weekly booster as well if successful. - Hiprex (methenamine hippurate) or daily antibiotic prophylaxis may be added to the regimen shouldthe patient continue to have urinary tract infections on her current regimen. Urine pH should be 5.5 or lower, may need to start Vitamin C 1- 2g QD to QID to acidify urine. - If she continues to demonstrate positive urine cultures with positive urinalysis, a complete workup, including a stone protocol CT and cystoscopy would be reasonable next step. 2. Bladder wall thickening -likely due to severe infection, bladder biopsy 3/ (more content not included)...[facility]:Result Comment: Electronically Signed By: Royer ALMARAZ, Jessica Garza\.br\Date and Time Signed: 08/23/24 [id number] NotePatient Education Cystoscopy with Stent Removal ??? Voiding after the procedure: there may be some pain, burning, urgency, frequency and blood tinged urine following the procedure. These symptoms usually resolve within 2-5 days. Drink the amount of fluid it takes to keep the urine pink to yellow or clear in color. Drinking enough water and fluids will help to ease any discomfort after your procedure. ??? If you are having problems that seem out of the ordinary, please call. ??? If unable to contact your physician and you feel it is an emergency, go to the nearest emergency room or call 911 ??? Diet ??? you may resume your normal diet. ??? Activity ??? you may resume your normal activities ??? Call if you have a fever over 100 degrees.[facility] 08-16-2024 Evaluation + Plan noteExtracted from: Title:ED Note Author:Kareem Correa DO Date:08/16 Pneumonia (J18.9: Pneumonia, unspecified organism) UTI (urinary tract infection) (N39.0: Urinary tract infection, site not specified) Orders: cefdinir, 300 mg = 1 cap(s), Oral, q12hr, X 7 day(s), # 14 cap(s), Refills(s) 0, [id number], 172, cm, 08/16/24 10:45:00 EDT, Height/Length Dosing, 100, kg, 08/16/24 10:45:00 EDT, Weight Dosing doxycycline, 100 mg = 1 tab(s), Oral, BID, X 7 day(s), # 14 tab(s), Refills(s) 0, [id number], 172, cm, 08/16/24 10:45:00 EDT, Height/Length Dosing, 100, kg, 08/16/24 10:45:00 EDT, Weight Dosing Basic Metabolic Panel CBC w/ Auto Diff eGFR Extra Blue Tube Extra SST Tube UA with Cult Rflx Urine Culture XR Chest 2 Views Future Appointments Appointment Date:08/20/2024 11:00:00 AM Scheduled Provider: Location:[facility] Appointment Type:Urology CALL PAT FT Appointment Date:08/23/2024 09:45:00 AM Scheduled Provider: Location:[facility] Appointment Type:Urology FT Diagnostic Tests Pending * Urine Culture 08/16/24 [facility] 04-07-2025 Hospital Discharge instructions Follow Up Care 08/16/2024 10:26:34 With:Jessica Linton Address:Unknown When:08/23/2024 14:23:03 [facility] 03-25-2025 Hospital Discharge instructions Additional Instructions Strain urine to collect fragments, bring to follow up. Take Tylenol 650-1000 mg every 6 hours, alternate with ibuprofen 400-800mg every 6 hours in between for pain relief. Oxybutynin as needed for bladder spasms/stent pain. May cause dry mouth/eyes and constipation. Take stool softeners. You can buy AZO (phenazopyridine) [id number] and use as needed for burning with urination. This will make your urine orange. Drink plenty of water and fluids Start antibiotics the morning of stent removal in 1 week. You must follow up to ensure your stent is removed. Failure to do so may result in recurrent infections and renal failure.[facility] Work Phone: [phone] Discharge summary Author Gagan Wylie [facility] Note Date/Time July 23, 2024 12: 32pm [facility] [address] [place] [place] [address] Discharge Summary Signed Patient: Rufino Collins MR#: [id number] : 1940 Acct:[id number] Age/Sex: 84 / F Adm Date: 5 Loc: Room: [address] [place] [address]: Gagan Wylie MD Copies to: DO Gagan Hernandez MD Stanton Vincent, DO, RES~ Providers Date of Admission: 07/21/24 Date of Discharge: 07/23/24 Discharging Provider: Gagan Wylie Additional Discharging Provider: Gagan Wylie Primary Care Provider: Manav Rajan Consults: 07/21/24 16:26 Consult to Urology Stat Comment: Consulting Provider: Jessica Linton Reason For Exam: Left hydroureteronephrosis, bladder mass Has Provider Been Notified: Yes Date of Notification: 07/21/24 Time of Notification: 17:22 Discharge Diagnosis (1) Hydroureteronephrosis: (2) Bladder wall thickening: (3) Lesion of bladder: (4) UTI (urinary tract infection): (5) Hydronephrosis: (6) Nephrolithiasis: (7) Pacemaker: (8) Type 2 diabetes mellitus with hyperglycemia: (9) Hypothyroidism: (10) Hypertension: Final Diagnosis Final Discharge Diagnosis: Hydroureteronephrosis, bladder wall thickening, UTI, nephrolithiasis Summary Hospital Course Hospital course: Ms. Collins is an 84-year-old female with a past medical history of type 2 diabetes mellitus, pacemaker in place, hypothyroid, hypertension, gastroesophageal reflux disease, generalized anxiety disorder, and autoimmune thyroiditis who presented to the emergency room on July 21 due to concerns of hip pain and flank pain with cloudy urine. Patient notes that she had seen providers past 2 weeks due to concerns of UTI. Checking at that time revealed no UTI and the patient. However, her symptoms had worsened. Urinalysis here inthe emergency room revealed UTI. CT scan of the abdomen and pelvis revealed a 1cm kidney stone in the left kidney that was nonobstructing. Additionally, imaging also revealed left lateral bladder wall thickening that was suspicious for mass. Left hydroureteronephrosis was also noted. Urology consultation was placed. Patient was then admitted to the hospital. Urology recommended hospital stay until cystoscopy could be performed. Cystoscopy was performed on July 22. Cystoscopy revealed severely cloudy urine that obscured views during procedure. Bladder was irrigated multiple times with moderate improvement. Left anterior lateral wall erythematous inflamed mucosa with similar scattered areas on the right were noted on scope. No jose tumors were noted, but tiny stones at the bladder base and 1+ trabeculated bladder were noted. Left renal pelvic junction revealed filling defect consistent with known stone, mild hydronephrosis, and no ureteral filling defects. Cloudy urine was impressive. Wire was placed for stent placement. Stent was placed in left ureter. Recommendation is for patient to have procedure in 2 weeks for repeat cystoscopy, left ureteroscopy with laser lithotripsy, and stent exchange. Patient received ceftriaxone during her stay for her UTI. Culture results reveal Aerococcus sanguinicola. Due to culture results, we can discharge patient at this time. We will discharge patient on Augmentin for 14 days. She is to take it twice a day. Patient has already been scheduled in 2 weeks for her repeat cystoscopy. We informed patient to let us know how she is doing and to let her primary care provider know if she is worsening over the next 2 weeks. Patient voices understanding and agreement to the plan of care. Patient can bedischarged from the hospital at this time. Condition Condition at Discharge: Stable Status at Discharge Functional status at discharge: independent ambulation Overall status at discharge: patient is progressing back to baseline Time Spent with Patient Time spent providing/coordinating discharge services (# min): 30 Surgeries and Procedures Operation Date: 07/22/24 12:00 Actual Procedures p OR Cysto, Left Retro, Pyelogram, Left ureteral Stent(Left) - Jessica Linton MD Discharge Plan Discharge Plan Patient Disposition: Home Activity: Ambulate as Tolerated Additional Instructions: Take Tylenol 650-1000 mg every 6 hours, alternate with ibuprofen 400-800mg every6 hours in between for pain relief. Oxybutynin only as needed for bladder spasms/stent pain. May cause dry mouth/eyes, constipation and retention. Take stool softeners. Stop if unable to urinate. You can buy AZO (phenazopyridine) [id number]-[id number] and use as needed for burningwith urination. This will make your urine orange. Drink plenty of water and fluids You must follow up to ensure your stent is removed. Failure to do so may result in recurrent infections and renal failure. Instructions: Know your Meds Prescriptions: New oxybutynin chloride 5 mg tablet 5 mg PO BID-TID PRN (Reason: bladder spasms) Qty: 30 0RF amoxicillin-pot clavulanate 875-125 mg tablet 1 tab PO BID 14 Days Qty: 28 0RF Continued (DME) True Metrix Glucose Test Strip Strip See Rx Instructions .ROUTE .COMPLEX Qty: 100 11RF Dose Instruction: USE 1 STRIP TO CHECK BLOOD SUGAR ONCE DAILY*E11.65* Rx Instructions: USE 1 STRIP TO CHECK BLOOD SUGAR ONCE DAILY*E11.65* nortriptyline 10 mg capsule 20 mg PO HS levothyroxine 112 mcg tablet See Rx Instructions .ROUTE .COMPLEX Qty: 90 3RF Dose Instruction: TAKE 1 TABLET DAILY ON AN EMPTY STOMACH 90 Rx Instructions: TAKE 1 TABLET DAILY ON AN EMPTY STOMACH 90 glimepiride 1 mg tablet 1 mg PO DAILY 90 Days Qty: 90 3RF acetaminophen [Pain Reliever (acetaminophen)] 325 mg tablet 650 mg PO Q6HR PRN (Reason: pain) propranolol 10 mg tablet buspirone 15 mg tablet 15 mg PO BID Patient Comments: take 1 in AM, 1/2 in afternoon, 1 at bedtime Rx Instructions: 15mg bid Morning and Night hydrocortisone [Anusol-HC] 2.5 % cream with perineal applicator 1 applic topical BID PRN (Reason: hemorrhoids) Hair,Skin and Nails Tablet 1 tab PO DAILY famotidine 10 mg tablet 10 mg PO BID PRN (Reason: indigestion) propranolol 20 mg tablet 20 mg PO TID vitamin B complex Tablet 1 tab PO DAILY cholecalciferol (vitamin D3) 25 mcg (1,000 unit) capsule 25 mcg PO DAILY (DME) blood-glucose meter [True Metrix Glucose Meter] [facility] See Rx Instructions .Route Qty: 1 0RF Rx Instructions: to test blood sugar thiamine HCl (vitamin B1) 100 mg capsule 100 mg PO DAILY Follow Up: Jessica Linton MD [Active Staff] - (Office will call to schedule follow up: left ureteroscopy with laser lithotripsy, stent exchange after 2 weeks) Continuity of Care Document Health Concerns: A [facility] screening has identified you as FRAIL or AT RISK FOR FRAILTY. This puts you at a higher risk for infection, illness, falls,and other injuries. Here are four ways to help you reduce your risk of frailty: 1. IDENTIFY EARLY SIGNS OF FRAILTY ? Discuss contributing factors and concerns with your doctor 2. BE ACTIVE ? Walking and light strengthening exercises will help reduce weakness 3. EAT WELL ? Aim for three healthy meals a day that are high in protein 4. THINK POSITIVE ? Keep your mind active by being sociable and continuing to learn References: Stay Strong: Four Ways to Beat the Frailty [email or web address] [email or web address]-[email or web address]-[email or web address]-geaq Exam Physical Exam Vital Signs: Temp Pulse Resp BP Pulse Ox O2 Del Method O2 Flow Rate 97.7 F 79 15 120/71 96 Room Air 8 07/23/24 09:02 07/23/24 09:02 07/23/24 09:02 07/23/24 09:02 07/23/24 09:02 07/23/24 09:02 07/22/24 13:00 Narrative: General: AOx4, no acute distress, ABCD HEENT: head atraumatic, normocephalic, moist mucous membranes Neck: supple no masses, no lymphadenopathy CVS: regular rate and rhythm, no murmurs or gallops Respiratory: clear to auscultation bilaterally, no wheezing or crackles, symmetric expansion GI: soft, nondistended, nontender, positive bowel sounds with no organomegaly : Left CVA tenderness present, urine is cloudy with some redness in catheter bag Extremity: moves all extremities, no restrictions of movements, no calf tenderness, no edema Neuro: Moves all extremities in all planes of motion. Skin: dry, intact no rashes or lesions Psych: Cooperative, congruent mood, bright affect Diagnostic Studies Completed and Pending Studies Pending studies at discharge: 07/23/24 05:46 Urine Culture Routine Preliminary micro results at discharge 07/23/24 05:46 Urine Culture - Pending [place] Labs on day of discharge: 07/23/24 05:56: Corrected WBC 11.5, Uncorrected WBC Count 11.5, RBC 4.28, Hgb 12.3, Hct 36.9, MCV 86.3, MCH 28.7, MCHC 33.2, RDW 13.5, Plt Count 301, MPV 8.9,Neut % (Auto) 70.3, Lymph % (Auto) 22.2, [place] % (Auto) 7.2, Eos % (Auto) 0.0, Baso % (Auto) 0.3, Nucleat RBC Rel Count 0.0, Neut # (Auto) 8.1 H, Lymph # (Auto) 2.6, [place] # (Auto) 0.8, Eos # (Auto) 0.0, Baso # (Auto) 0.0, PHA Creatinine Clear 60.24, Sodium 137, Potassium 4.4, Chloride 106, Carbon Dioxide 23.9, Anion Gap 11.5, BUN 27 H, Creatinine 0.91, Est GFR (CKD-EPI) > 60.0, Glucose 178 H, Calcium 8.5 L 07/22/24 13:08: POC Glucose 124 Documented By: Gagan Wylie MD 5 1204 Signed By: <Electronically signed by Gagan Wylie MD> 07/23/24 1232 <Electronically signed by DO PERRI Dior> 07/23/24 1212 [facility] Work Phone: [phone] 439-450303-14-2025 Hospital Discharge instructions Additional Instructions Take Tylenol 650-1000 mg every 6 hours, alternate with ibuprofen 400-800mg every 6 hours in between for pain relief. Oxybutynin only as needed for bladder spasms/stent pain. May cause dry mouth/eyes, constipation and retention. Take stool softeners. Stop if unable to urinate. You can buy AZO (phenazopyridine) vvni-xic-apmogph and use as needed for burning with urination. This will make your urine orange. Drink plenty of water and fluids You must follow up to ensure your stent is removed. Failure to do so may result in recurrent infections and renal failure.[facility] Work Phone: [phone] [address] Discharge Summary Signed Patient: Rufino Collins MR#: [id number] : 1940 Acct:[id number] Age/Sex: 84 / F Adm Date: 5 Loc: Room: [address] [place] [address]: Gagan Wylie MD Copies to: DO Gagan Hernandez MD Stanton Vincent, DO, RES~ Providers Date of Admission: 07/21/24 Date of Discharge: 07/23/24 Discharging Provider: Gagan Wylie Additional Discharging Provider: Gagan Wylie Primary Care Provider: Manav Rajan Consults: 07/21/24 16:26 Consult to Urology Stat Comment: Consulting Provider: Jessica Linton Reason For Exam: Left hydroureteronephrosis, bladder mass Has Provider Been Notified: Yes Date of Notification: 07/21/24 Time of Notification: 17:22 Discharge Diagnosis (1) Hydroureteronephrosis: (2) Bladder wall thickening: (3) Lesion of bladder: (4) UTI (urinary tract infection): (5) Hydronephrosis: (6) Nephrolithiasis: (7) Pacemaker: (8) Type 2 diabetes mellitus with hyperglycemia: (9) Hypothyroidism: (10) Hypertension: Final Diagnosis Final Discharge Diagnosis: Hydroureteronephrosis, bladder wall thickening, UTI, nephrolithiasis Summary Hospital Course Hospital course: Ms. Collins is an 84-year-old female with a past medical history of type 2 diabetes mellitus, pacemaker in place, hypothyroid, hypertension, gastroesophageal reflux disease, generalized anxiety disorder, and autoimmune thyroiditis who presented to the emergency room on July 21 due to concerns of hip pain and flank pain with cloudy urine. Patient notes that she had seen providers past 2 weeks dueto concerns of UTI. Checking at that time revealed no UTI and the patient. However, her symptoms had worsened. Urinalysis here inthe emergency room revealed UTI. CT scan of the abdomen and pelvis revealed a 1cm kidney stone in the left kidney that was nonobstructing. Additionally, imaging also revealed left lateral bladder wall thickening that was suspicious for mass. Left hydroureteronephrosis was also noted. Urology consultation was placed. Patient was then admitted to the hospital. Urology recommended hospital stay until cystoscopy could be performed. Cystoscopy was performed on July 22. C ystoscopy revealed severely cloudy urine that obscured views during procedure. Bladder was irrigated multiple times with moderate improvement. Left anterior lateral wall erythematous inflamed mucosa with similar scattered areas on the right were noted on scope. No jose tumors were noted, but tiny stones at the bladder base and 1+ trabeculated bladder were noted. Left renal pelvic junction revealed filling defect consistent with known stone, mild hydronephrosis, and no ureteral filling defects.Cloudy urine was impressive. Wire was placed for stent placement. Stent was placed in left ureter. Recommendation is for patient to have procedure in 2 weeks for repeat cystoscopy, left ureteroscopy with laser lithotripsy, and stent exchange. Patient received ceftriaxone during her stay for her UTI. Culture results reveal Aerococcus sanguinicola. Due to culture results, we can discharge patient at this time. We will discharge patient on Augmentin for 14 days. She is to take it twice a day. Patient has already been scheduled in 2 weeks for her repeat cystoscopy. We informed patient to let us kn ow how she is doing and to let her primary care provider know if she is worsening over the next 2 weeks. Patient voices understanding and agreement to the plan of care. Patient can bedischarged from the hospital at this time. Condition Condition at Discharge: Stable Status at Discharge Functional status at discharge: independent ambulation Overall status at discharge: patient is progressing back to baseline Time Spent with Patient Time spent providing/coordinating discharge services (# min): 30 Surgeries and Procedures Operation Date: 07/22/24 12:00 Actual Procedures p OR Cysto, Left Retro, Pyelogram, Left ureteral Stent(Left) - Jessica Linton MD Discharge Plan Discharge Plan Patient Disposition: Home Activity: Ambulate as Tolerated Additional Instructions: Take Tylenol 650-1000 mg every 6 hours, alternate with ibuprofen 400-800mg every6 hours in between for pain relief. Oxybutynin only as needed for bladder spasms/stent pain. May cause dry mouth/eyes, constipation andretention. Take stool softeners. Stop if unable to urinate. You can buy AZO (phenazopyridine) [id number] and use as needed for burningwith urination. This will make your urine orange. Drink plenty of water and fluids You must follow up to ensure your stent is removed. Failure to do so may result in recurrent infections and renal failure. Instructions: Know your Meds Prescriptions: New oxybutynin chloride 5 mg tablet 5 mg PO BID-TID PRN (Reason: bladder spasms) Qty: 30 0RF amoxicillin-pot clavulanate 875-125 mg tablet 1 tab PO BID 14 Days Qty: 28 0RF Continued (DME) True Metrix Glucose Test Strip Strip See Rx Instructions .ROUTE .COMPLEX Qty: 100 11RF Dose Instruction: USE 1 STRIP TO CHECK BLOOD SUGAR ONCE DAILY*E11.65* Rx Instructions: USE 1 STRIP TO CHECK BLOOD SUGAR ONCE DAILY*E11.65* nortriptyline 10 mg capsule 20 mg PO HS levothyroxine 112 mcg tablet See Rx Instructions .ROUTE .COMPLEX Qty: 90 3RF Dose Instruction: TAKE 1 TABLET DAILY ON AN EMPTY STOMACH 90 Rx Instructions: TAKE 1 TABLET DAILY ON AN EMPTY STOMACH 90 glimepiride 1 mg tablet 1 mg PO DAILY 90 Days Qty: 90 3RF acetaminophen [Pain Reliever (acetaminophen)] 325 mg tablet 650 mg PO Q6HR PRN (Reason: pain) propranolol 10 mg tablet buspirone 15 mg tablet 15 mg PO BID Patient Comments: take 1 in AM, 1/2 in afternoon, 1 at bedtime Rx Instructions: 15mg bid Morning and Night hydrocortisone [Anusol-HC] 2.5 % cream with perineal applicator 1 applic topical BID PRN (Reason: hemorrhoids) Hair,Skin and Nails Tablet 1 tab PO DAILY famotidine 10 mg tablet 10 mg PO BID PRN (Reason: indigestion) propranolol 20 mg tablet 20 mg PO TID vitamin B complex Tablet 1 tab PO DAILY cholecalciferol (vitamin D3) 25 mcg (1,000 unit) capsule 25 mcg PO DAILY (DME) blood-glucose meter [True Metrix Glucose Meter] [facility] See Rx Instructions .Route Qty: 1 0RF Rx Instructions: to test blood sugar thiamine HCl (vitamin B1) 100 mg capsule 100 mg PO DAILY Follow Up: Jessica Linton MD [Active Staff] - (Office will call to schedule follow up: left ureteroscopy with laser lithotripsy, stent exchange after 2 weeks) Continuity of Care Document Health Concerns: A [facility] screening has identified you as FRAIL or AT RISK FOR FRAILTY. This puts you at a higher risk for infection, illness, falls,and other injuries. Here are four ways to help you reduce your risk of frailty: 1. IDENTIFY EARLY SIGNS OF FRAILTY ? Discuss contributing factors and concerns with your doctor 2. BE ACTIVE ? Walking and light strengthening exercises will help reduce weakness 3. EAT WELL ? Aim for three healthy meals a day that are high in protein 4. THINKPOSITIVE ? Keep your mind active by being sociable and continuing to learn References: Stay Strong:Four Ways to Beat the Frailty [email or web address]://[email or web address]/[email or web address]-pvx-rhhqdwaedi/sta x-wdfdmw-gghz-tpot-sz-vnko-lce-qoyfmws-aguk Exam Physical Exam Vital Signs: Temp Pulse Resp BP Pulse Ox O2 Del Method O2 Flow Rate 97.7 F 79 15 120/71 96 Room Air 8 07/23/24 09:02 07/23/24 09:02 07/23/24 09:02 07/23/24 09:02 07/23/24 09:02 07/23/24 09:02 07/22/24 13:00 Narrative: General: AOx4, no acute distress, ABCD HEENT: head atraumatic, normocephalic, moist mucous membranes Neck: supple no masses, no lymphadenopathy CVS: regular rate and rhythm, no murmurs or gallops Respiratory: clear to auscultation bilaterally, no wheezing or crackles, symmetric expansion GI: soft, nondistended, nontender, positive bowel sounds with no organomegaly : Left CVA tenderness present, urine is cloudy with some redness in catheter bag Extremity: moves all extremities, no restrictions of movements, no calf tenderness, no edema Neuro: Moves all extremities in all planes of motion. Skin: dry, intact no rashes or lesions Psych: Cooperative, congruent mood, bright affect Diagnostic Studies Completed and Pending Studies Pending studies at discharge: 07/23/24 05:46 Urine Culture Routine Preliminary micro results at discharge 07/23/24 05:46 Urine Culture - Pending [place] Labs on day of discharge: 07/23/24 05:56: Corrected WBC 11.5, Uncorrected WBC Count 11.5, RBC 4.28, Hgb 12.3, Hct 36.9, MCV 86.3, MCH 28.7, MCHC 33.2, RDW 13.5, Plt Count 301, MPV 8.9,Neut % (Auto) 70.3, Lymph % (Auto) 22.2, [place] % (Auto) 7.2, Eos % (Auto) 0.0, Baso % (Auto) 0.3, Nucleat RBC Rel Count 0.0, Neut # (Auto) 8.1H, Lymph # (Auto) 2.6, [place] # (Auto) 0.8, Eos # (Auto) 0.0, Baso # (Auto) 0.0, PHA Creatinine Clear60.24, Sodium 137, Potassium 4.4, Chloride 106, Carbon Dioxide 23.9, Anion Gap 11.5, BUN 27 H, Creatinine 0.91, Est GFR (CKD-EPI) > 60.0, Glucose 178 H, Calcium 8.5 L 07/22/24 13:08: POC Glucose 124 Documented By: Gagan Wylie MD 5 [id number] Signed By: 07/23/24 1232 07/23/24 1212 [facility]03-13-2025 History and physical note Author Gagan Wylie [facility] Note Date/Time July 22, 2024 5:0 7pm [facility] [address] [place] [address] Hospitalist H&P Signed Patient: Rufino Collins MR#: [id number] : 1940 Acct:[id number] Age/Sex: 84 / F Adm Date: 5 Loc: Room: [address] [place] [address] Type: ADM IN Attending Dr: Gagan Wylie MD Copies to: DO Gagan Hernandez MD Stanton Vincent, DO, RES~ HPI DATE OF EXAMINATION: 07/21/24 CHIEF COMPLAINT: Left hip pain, left back pain, left flank pain HISTORY OF PRESENT ILLNESS: Ms. Collins is a 84-year-old female with past history of type 2 diabetes mellitus, hypothyroidism, hypertension, GERD, generalized anxiety disorder, and autoimmune thyroiditis who presents to the emergency department due to concerns of new onset left back and flank pain. Patient notes for the past 2 weeks, she has had some on and off burning with urination. She has been tested for UTI frequently, and all test come back negative. However, in the past day, she developed left flank pain and left hip pain. She came into the emergency room today to be checked out. Workup reveals UTI at this time. CT scan reveals 1 cmkidney stone in the left kidney that is nonobstructing. Furthermore, finding ofleft lateral bladder wall thickening that is suspicious for mass is present thatis causing left hydroureteronephrosis. Urology was consulted and recommendationat this time is to perform cystoscopy on Friday. However, due to the UTI, treatment needs to be initiated at this time for the procedure to go through. 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 She does follow-up with gynecology for this. She denies any other history of cancer in her past. She has never smoked. Due to history of type 2 diabetes mellitus, patient notes herlast A1c about 3 weeks ago was 6.1%. Additionally, lipase was found to be elevated at 179 during her lab workup. She does confirm currently the symptoms of left flank plain, left hip pain, burning on urination, and general discomfort. She denies nausea, vomiting, and diarrhea at this time. All questions and concerns were addressed with the patient. Review of Systems Review of Systems All other systems reviewed & are negative unless noted below or in HPI [facility] Medical History Bladder wall thickening CT: left sided bladder wall thickening near the UVJ, mild left hydroureteronephrosis - 07/2024 Obesity Type 2 diabetes mellitus with hyperglycemia Pacemaker Irritable bowel syndrome with diarrhea Hypothyroidism Hypertension Generally unsteady Gastroesophageal reflux disease SHELLEY (generalized anxiety disorder) Edema Autoimmune thyroiditis Surgical History History of tonsillectomy History of hysterectomy History of surgery of head Hx of cholecystectomy History of bilateral knee replacement History of carpal tunnel surgery Family History Father Family/Other Legacy FamHx Problem: One sister :NO FAMILY HX OF COLON CANCER Mother Social History Smoking Status: Never smoker Substance Use Type: None Meds Medications and Allergies Allergies metformin Allergy (Unknown, Verified 07/21/24 16:18) Unknown Reaction moxifloxacin (Avelox) Allergy (Unknown, Verified 07/22/24 10:34) Chest Pain oxycodone (Percocet) Allergy (Unknown, Verified 07/22/24 10:34) Nausea pepper (genus Capsicum) Allergy (Unknown, Verified 07/22/24 10:34) Itching Sulfa (Sulfonamide Antibiotics) Allergy (Unknown, Verified 07/22/24 10:34) Nausea sulfadiazine Allergy (Unknown, Verified 07/21/24 16:18) Comment:Sulfa acetaminophen (Percocet) Adverse Reaction (Unknown, Verified 07/22/24 10:34) Nausea Home Medications blood-glucose meter (True Metrix Glucose Meter) #1 ea 07/03/23 [Rx Confirmed 07/09/24] cholecalciferol (vitamin D3) 25 mcg (1,000 unit) capsule 25 mcg PO DAILY 07/04/23 [History Confirmed 07/21/24] famotidine 10 mg tablet 10 mg PO BID PRN indigestion 07/04/23 [History Confirmed 07/21/24] hydrocortisone 2.5 % topical cream with perineal applicator (Anusol-HC) 1 applictopical BID PRN hemorrhoids 07/04/23 [History Confirmed 07/21/24] multivitamin with minerals (Hair,Skin and Nails tablet) 1 tab PO DAILY 07/04/23 [History Confirmed 07/21/24] propranolol 20 mg tablet 20 mg PO TID 07/04/23 [History Confirmed 07/21/24] vitamin B complex 1 tab PO DAILY 07/04/23 [History Confirmed 07/21/24] blood sugar diagnostic (True Metrix Glucose Test Strip) #100 strips 08/06/23 [Rx Confirmed 07/09/24] nortriptyline 10 mg capsule 20 mg PO HS 11/17/23 [History Confirmed 07/21/24] levothyroxine 112 mcg tablet See Rx Instructions .Route .COMPLEX #90 tabs 02/20/24 [Rx Confirmed 07/21/24] glimepiride 1 mg tablet 1 mg PO DAILY 90 days #90 tabs 02/27/24 [Rx Confirmed 07/21/24] thiamine HCl (vitamin B1) 100 mg capsule 100 mg PO DAILY 07/09/24 [History Confirmed 07/21/24] acetaminophen 325 mg tablet (Pain Reliever (acetaminophen)) 650 mg PO Q6HR PRN pain 07/21/24 [History Confirmed 07/21/24] propranolol 10 mg tablet mg 07/21/24 [History] buspirone 15 mg tablet 15 mg PO BID 07/22/24 [History Confirmed 07/22/24] oxybutynin chloride 5 mg tablet 5 mg PO BID-TID PRN bladder spasms #30 tabs 07/22/24 [Rx] Exam Physical Exam Vital Signs: Temp Pulse Resp BP Pulse Ox O2 Del Method 97.7 F 86 18 146/72 H 98 Room Air 07/21/24 11:23 07/21/24 16:26 07/21/24 16:26 07/21/24 16:26 07/21/24 16:26 07/21/24 16:26 Narrative: General: AOx4, no acute distress, ABCD HEENT: head atraumatic, normocephalic, moist mucous membranes Neck: supple no masses, no lymphadenopathy CVS: regular rate and rhythm, no murmurs or gallops Respiratory: clear to auscultation bilaterally, no wheezing or crackles, symmetric expansion GI: soft, nondistended, nontender, positive bowel sounds with no organomegaly : Left CVA tenderness present. Extremity: moves all extremities, no restrictions of movements, no calf tenderness, no edema Neuro: Moves all extremities in all planes of motion. Skin: dry, intact no rashes or lesions Psych: Cooperative, congruent mood, bright affect Results - Hospitalist H&P Lab Results Labs: Laboratory Last Values Corrected WBC 9.7 X10E3/uL (3.8-11.6) 07/21/24 13:35 Uncorrected WBC Count 9.7 x10E3/uL (3.8-11.6) 07/21/24 13:35 RBC 5.11 x10E6/uL (3.60-5.00) H 07/21/24 13:35 Hgb 14.9 g/dL (11.8-15.4) 07/21/24 13:35 Hct 45.5 % (34.0-46.4) 07/21/24 13:35 MCV 89.0 fl (80-100) 07/21/24 13:35 MCH 29.1 pg (24.7-34.3) 07/21/24 13:35 MCHC 32.7 g/dL (32.0-35.0) 07/21/24 13:35 RDW 13.9 % (11.9-15.3) 07/21/24 13:35 Plt Count 308 x10E3/uL (150-450) 07/21/24 13:35 MPV 9.2 fl (6.3-10.7) 07/21/24 13:35 Neut % (Auto) 63.3 % (.) 07/21/24 13:35 Lymph % (Auto) 25.2 % (.) 07/21/24 13:35 [place] % (Auto) 7.9 % (.) 07/21/24 13:35 Eos % (Auto) 2.5 % (.) 07/21/24 13:35 Baso % (Auto) 1.1 % (.) 07/21/24 13:35 Nucleat RBC Rel Count 0.1 /100 WBC (0-0.5) 07/21/24 13:35 Neut # (Auto) 6.1 x10E3/uL (1.8-7.7) 07/21/24 13:35 Lymph # (Auto) 2.4 x10E3/uL (1.00-4.8) 07/21/24 13:35 [place] # (Auto) 0.8 x10E3/uL (0.0-0.8) 07/21/24 13:35 Eos # (Auto) 0.2 x10E3/uL (0.0-0.45) 07/21/24 13:35 Baso # (Auto) 0.1 x10E3/uL (0.0-0.2) 07/21/24 13:35 Monocyte Dist Width 17.93 % (0.00-20.00) 07/21/24 13:35 PHA Creatinine Clear 63.61 07/21/24 13:35 Sodium 135 mmol/L (136-145) L 07/21/24 13:35 Potassium 4.2 mmol/L (3.5-5.1) 07/21/24 13:35 Chloride 108 mmol/L (98-107) H 07/21/24 13:35 Carbon Dioxide 18.0 mmol/L (21.0-31.0) L 07/21/24 13:35 Anion Gap 13.2 mEq/L (6.0-15.0) 07/21/24 13:35 BUN 22 mg/dL (7-25) 07/21/24 13:35 Creatinine 0.86 mg/dL (0.60-1.20) 07/21/24 13:35 Est GFR (CKD-EPI) > 60.0 mL/Min 07/21/24 13:35 Glucose 160 mg/dL (70-100) H 07/21/24 13:35 Calcium 9.2 mg/dL (8.6-10.3) 07/21/24 13:35 Total Bilirubin 0.4 mg/dl (0.3-1.0) 07/21/24 13:35 AST 15 U/L (13-39) 07/21/24 13:35 ALT 17 U/L (7-52) 07/21/24 13:35 Alkaline Phosphatase 81 U/L (34-104) 07/21/24 13:35 Total Protein 7.5 gm/dL (6.4-8.9) 07/21/24 13:35 Albumin 4.0 gm/dL (3.5-5.7) 07/21/24 13:35 Globulin 3.5 gm/dL 07/21/24 13:35 Albumin/Globulin Ratio 1.1 07/21/24 13:35 Lipase 179.0 U/L (11.0-82.0) H 07/21/24 13:35 Urine Color Dark-yellow (Yellow) A 07/21/24 13:39 Urine Appearance Turbid (Clear) A 07/21/24 13:39 Urine pH 5.5 (5.0-9.0) 07/21/24 13:39 Ur Specific [place] 1.018 (1.001-1.030) 07/21/24 13:39 Urine Protein 50 mg/dL (Negative) H 07/21/24 13:39 Urine Glucose (UA) Normal mg/dL (Normal) 07/21/24 13:39 Urine Ketones Negative (Negative) 07/21/24 13:39 Urine Occult Blood 2+ (Negative) H 07/21/24 13:39 Urine Nitrite Negative (Negative) 07/21/24 13:39 Urine Bilirubin Negative (Negative) 07/21/24 13:39 Urine Urobilinogen Normal mg/dL (Normal) 07/21/24 13:39 Ur Leukocyte Esterase 4+ (Negative) H 07/21/24 13:39 Urine RBC 20-49 /HPF (0-4) H 07/21/24 13:39 Urine WBC Innumerable /HPF (0-4) H 07/21/24 13:39 Urine WBC Clumps Many /LPF (None Seen) H 07/21/24 13:39 Ur Squamous Epith Cells 10-19 /HPF (0-2) H 07/21/24 13:39 Calcium Oxalate Crystal Rare /HPF 07/21/24 13:39 Urine Bacteria 3+ /HPF (None Seen) H 07/21/24 13:39 Hyaline Casts None /LPF (0-8) 07/21/24 13:39 Urine Mucus Rare /LPF 07/21/24 13:39 Assessment & Plan Assessment/Plan (1) Hydroureteronephrosis: (2) Bladder wall thickening: (3) Lesion of bladder: (4) UTI (urinary tract infection): (5) Hydronephrosis: (6) Nephrolithiasis: (7) Pacemaker: (8) Type 2 diabetes mellitus with hyperglycemia: (9) Hypothyroidism: (10) Hypertension: Plan Hydroureteronephrosis Bladder wall thickening Lesion of bladder UTI Hydronephrosis Nephrolithiasis Patient notes that her pain is well-controlled at this time. Lab review reveals 1 cm kidney stone in left kidney. Mass of left lateral wall of bladder is causing the hydroureteronephrosis. Urology was consulted. -Continue consultation with urology. -Start Flomax. -Start Motrin for pain. -Continue ceftriaxone 2 g IV every 24 hours. -Monitor vitals every 4 hours. -Plan at this time is for cystoscopy procedure on Friday after UTI has been treated with antibiotic for 2 days. -Recheck CBC and BMP in the morning. Chronic conditions Pacemaker: Applied telemetry. Monitor vitals every 4 hours. Type 2 diabetes mellitus: Continue glimepiride. Monitor glucose ACHS. Hypothyroidism: Continue Synthroid. Monitor vitals every 4 hours. Hypertension: Continue propranolol. Monitor vitals every [address] Wylie Attestation: Patient was personally seen by me on the day of encounter. I reviewed her history and performed mcnamara elements of exam and formulated the plan of care and confirmed the nurse note above. Plan of care reflects my direct input IP vs OBS Justification Based on differential dx, clinical care plan, and risk of adverse events, if untreated, in my clinical judgement this patient requires an acute care setting as: INPATIENT because of an expectation of an over 2 midnight stay. Estimated length of stay (# of days): 2 Documented By: Gagan Wylie MD 5 [id number] Signed By: <Electronically signed by Gagan Wylie MD> 07/22/24 1707 <Electronically signed by DO PERRI Dior> 07/22/24 1511 [facility] Work Phone: [phone]) 766-741103-13-2025 Progress note Author Gagan Wylie [facility] Note Date/Time July 22, 2024 5:0 7pm [facility] [address] [place] [address] Hospitalist Progress Note Signed Patient: Rufino Collins MR#: [id number] : 1940 Acct:[id number] Age/Sex: 84 / F Adm Date: 5 Loc: Room: [address] [place] [address] Type: ADM IN Attending Dr: Gagan Wylie MD Copies to: ~ Date of Service: 07/22/2024 Subjective Subjective Narrative: Ms. Collins is resting comfortably in bed this morning on entrance to the room. Patient had cystoscopy procedure done today. Report reveals very cloudy urine with difficulty with visualization. No masses were appreciated on the cystoscopy. Cytology of the urine was sent. Stents were placed using wire guidance. Urology recommends patient stays in the hospital for further treatment of UTI. Patient notes that she is feeling a little better today. Shewould like to drink more fluids to help get her kidney stones out. All questions and concerns were addressed with the patient. Exam Physical Exam Vital Signs: Temp Pulse Resp BP Pulse Ox O2 Del Method O2 Flow Rate 98.7 F 80 16 94/56 L 98 Room Air 8 07/22/24 13:25 07/22/24 13:25 07/22/24 13:25 07/22/24 13:25 07/22/24 13:25 07/22/24 13:10 07/22/24 13:00 Narrative: General: AOx4, no acute distress, ABCD HEENT: head atraumatic, normocephalic, moist mucous membranes Neck: supple no masses, no lymphadenopathy CVS: regular rate and rhythm, no murmurs or gallops Respiratory: clear to auscultation bilaterally, no wheezing or crackles, symmetric expansion GI: soft, nondistended, nontender, positive bowel sounds with no organomegaly : Left CVA tenderness present, urine is cloudy with some redness in catheter bag Extremity: moves all extremities, no restrictions of movements, no calf tenderness, no edema Neuro: Moves all extremities in all planes of motion. Skin: dry, intact no rashes or lesions Psych: Cooperative, congruent mood, bright affect Objective Lab Results 07/22/24 06:24 07/22/24 06:24 Microbiology Results Microbiology 07/21/24 13:39 Urine - Clean-Voided Midstream Urine Culture - Preliminary <9,000 colonies/ml mixed bacterial skin contaminants 1 Day Meds Allergies and Active Meds Allergies metformin Allergy (Unknown, Verified 07/21/24 16:18) Unknown Reaction moxifloxacin (Avelox) Allergy (Unknown, Verified 07/22/24 10:34) Chest Pain oxycodone (Percocet) Allergy (Unknown, Verified 07/22/24 10:34) Nausea pepper (genus Capsicum) Allergy (Unknown, Verified 07/22/24 10:34) Itching Sulfa (Sulfonamide Antibiotics) Allergy (Unknown, Verified 07/22/24 10:34) Nausea sulfadiazine Allergy (Unknown, Verified 07/21/24 16:18) Comment:Sulfa acetaminophen (Percocet) Adverse Reaction (Unknown, Verified 07/22/24 10:34) Nausea Active Meds: Active Medications Generic Name Dose Route Start Last Admin Trade Name Freq PRN Reason Stop Dose Admin Buspirone HCl 15 mg 07/22/24 09:00 07/22/24 08:52 Buspirone 15 Mg Tablet PO 07/22/25 08:59 15 mg BID@0900,2200 JUANITA Administration Buspirone HCl 7.5 mg 07/22/24 17:00 Buspirone 15 Mg Tablet PO 07/22/25 16:59 DAILY.WITH.SUPPER JUANITA Famotidine 10 mg 07/21/24 19:08 Famotidine 20 Mg Tablet PO 07/21/25 19:07 BID PRN indigestion Glimepiride 1 mg 07/22/24 09:00 07/22/24 08:53 Glimepiride 1 Mg Tablet PO 07/22/25 08:59 1 mg DAILY JUANITA Administration Heparin Sodium (Porcine) 5,000 unit 07/21/24 22:00 07/22/24 06:25 Heparin 5,000 Unit/Ml Vial SUBCUT 07/21/25 21:59 5,000 unit Q8HR JUANITA Administration Ceftriaxone Sodium 2 gm in 50 mls @ 100 mls/hr 07/22/24 16:00 Rocephin IV Q24H JUANITA Lactated Ringer's 1,000 mls @ 20 mls/hr 07/22/24 09:40 07/22/24 10:05 Lactated Ringers IV 07/23/24 09:39 20 mls/hr .Q24H ONE Administration Ibuprofen 600 mg 07/21/24 16:45 07/21/24 23:46 Ibuprofen 600 Mg Tablet PO 07/21/25 16:44 600 mg Q6H PRN Administration Kidney stone Ketorolac Tromethamine 15 mg 07/22/24 14:58 Ketorolac Tromethamine 15 Mg/Ml Vial IV-PUSH 07/27/24 14:57 Q6H PRN Pain Levothyroxine Sodium 112 mcg 07/22/24 06:30 07/22/24 06:27 Levothyroxine 112 Mcg Tablet PO 07/22/25 06:29 112 mcg DAILY.0630 JUANITA Administration Nortriptyline HCl 20 mg 07/21/24 22:00 07/21/24 22:23 Nortriptyline 10 Mg Capsule PO 07/21/25 21:59 20 mg HS JUANITA Administration Oxybutynin Chloride 5 mg 07/22/24 14:58 Oxybutynin Chloride 5 Mg Tablet PO 07/22/25 21:59 TID PRN BLADDER SPASMS Propranolol HCl 10 mg 07/22/24 09:00 07/22/24 08:52 Propranolol 10 Mg Tablet PO 07/22/25 08:59 10 mg QID JUANITA Administration Sodium Chloride 0 ml 07/21/24 11:23 07/22/24 10:48 Sodium Chloride 0.9 % 10 Ml Syringe IV-PUSH 07/21/25 11:22 4 ml PRN PRN Administration Flush Tamsulosin HCl 0.4 mg 07/22/24 09:00 07/22/24 08:52 Tamsulosin 0.4 Mg Cap.Er.24h PO 07/22/25 08:59 0.4 mg DAILY JUANITA Administration A&P - Hospitalist Assessment/Plan (1) Hydroureteronephrosis: (2) Bladder wall thickening: (3) Lesion of bladder: (4) UTI (urinary tract infection): (5) Hydronephrosis: (6) Nephrolithiasis: (7) Pacemaker: (8) Type 2 diabetes mellitus with hyperglycemia: (9) Hypothyroidism: (10) Hypertension: Plan Hydroureteronephrosis Bladder wall thickening Lesion of bladder UTI Hydronephrosis Nephrolithiasis Patient notes that her pain is well-controlled at this time. Cystoscopy procedure is done. UTI is primary concern at this time. -Continue consultation with urology. -Continue Flomax. -Continue Motrin for pain. -Continue ceftriaxone 2 g IV every 24 hours. -Monitor vitals every 4 hours. -Await culture results. Once results are obtained, patient can be discharged with specific antibiotic. -Recheck CBC and BMP in the morning. Chronic conditions Pacemaker: Applied telemetry. Monitor vitals every 4 hours. Type 2 diabetes mellitus: Continue glimepiride. Monitor glucose ACHS. Hypothyroidism: Continue Synthroid. Monitor vitals every 4 hours. Hypertension: Continue propranolol. Monitor vitals every [address] Wylie Attestation: Patient was personally seen by me on the day of encounter. I reviewed her history and performed mcnamara elements of exam and formulated the plan of care and confirmed the nurse note above. Plan of care reflects my direct input Documented By: Gagan Wylie MD 5 [id number] Signed By: <Electronically signed by Gagan Wylie MD> 07/22/24 1707 <Electronically signed by DO PERRI Dior> 07/22/24 1511 [facility] Work Phone: 1(652) 811-281303-13-2025 [place] [address] Hospitalist H&P Signed Patient: Rufino Collins MR#: [id number] : 1940 Acct:[id number] Age/Sex: 84 / F Adm Date: 5 Loc: 3T Room: [address] [place] [address] Type: ADM IN Attending Dr: Gagan Wylie MD Copies to: DO Gagan Hernandez MD Stanton Vincent, DO, RES~ HPI DATE OF EXAMINATION: 07/21/24 CHIEF COMPLAINT: Left hip pain, left back pain, left flank pain HISTORY OF PRESENT ILLNESS: Ms. Collins is a 84-year-old female with past history of type 2 diabetes mellitus, hypothyroidism, hypertension, GERD, generalized anxiety disorder, and autoimmune thyroiditis who presents to the emergency department due to concerns of new onset left back and flank pain. Patient notes for the past 2 weeks, she has had some on and off burning with urination. She has been tested for UTI frequently,and all test come back negative. However, in the past day, she developed left flank pain and left hip pain. She came into the emergency room today to be checked out. Workup reveals UTI at this time. CT scan reveals 1 cmkidney stone in the left kidney that is nonobstructing. Furthermore, finding ofleft lateral bladder wall thickening that is suspicious for mass is present thatis causing left hydroureteronephrosis. Urology was consulted and recommendationat this time is to perform cystoscopy on Friday. However, due to the UTI, treatment needs to be initiated at this time for the procedure to go through. 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 She does follow-up with gynecology for this. She deniesany other history of cancer in her past. She has never smoked. Due to history of type 2 diabetes mellitus, patient notes herlast A1c about 3 weeks ago was 6.1%. Additionally, lipase was found to be elevated at 179 during her lab workup. She does confirm currently the symptoms of left flank plain, left hip pain, burning on urination, and general discomfort. She denies nausea, vomiting, and diarrhea at this time. All questions and concerns were addressed with the patient. Review of Systems Review of Systems All other systems reviewed & are negative unless noted below or in HPI [facility] Medical History Bladder wall thickening CT: left sided bladder wall thickening near the UVJ, mild left hydroureteronephrosis - 07/2024 Obesity Type 2 diabetes mellitus with hyperglycemia Pacemaker Irritable bowel syndrome with diarrhea Hypothyroidism Hypertension Generally unsteady Gastroesophageal reflux disease SHELLEY (generalized anxiety disorder) Edema Autoimmune thyroiditis Surgical History History of tonsillectomy History of hysterectomy History of surgery of head Hx of cholecystectomy History of bilateral knee replacement History of carpal tunnel surgery Family History Father Family/Other Legacy FamHx Problem: One sister :NO FAMILY HX OF COLON CANCER Mother Social History Smoking Status: Never smoker Substance Use Type: None Meds Medications and Allergies Allergies metformin Allergy (Unknown, Verified 07/21/24 16:18) Unknown Reaction moxifloxacin (Avelox) Allergy (Unknown, Verified 07/22/24 10:34) Chest Pain oxycodone (Percocet) Allergy (Unknown, Verified 07/22/24 10:34) Nausea pepper (genus Capsicum) Allergy (Unknown, Verified 07/22/24 10:34) Itching Sulfa (Sulfonamide Antibiotics) Allergy (Unknown, Verified 07/22/24 10:34) Nausea sulfadiazine Allergy (Unknown, Verified 07/21/24 16:18) Comment:Sulfa acetaminophen (Percocet) Adverse Reaction (Unknown, Verified 07/22/24 10:34) Nausea Home Medications blood-glucose meter (True Metrix Glucose Meter) #1 ea 07/03/23 [Rx Confirmed 07/09/24] cholecalciferol (vitamin D3) 25 mcg (1,000 unit) capsule 25 mcg PO DAILY 07/04/23 [History Confirmed 07/21/24] famotidine 10 mg tablet 10 mg PO BID PRN indigestion 07/04/23 [History Confirmed 07/21/24] hydrocortisone 2.5 % topical cream with perineal applicator (Anusol-HC) 1 applictopical BID PRN hemorrhoids 07/04/23 [History Confirmed 07/21/24] multivitamin with minerals (Hair,Skin and Nails tablet) 1 tab PO DAILY 07/04/23 [History Confirmed 07/21/24] propranolol 20 mg tablet 20 mg PO TID 07/04/23 [History Confirmed 07/21/24] vitamin B complex 1 tab PO DAILY 07/04/23 [History Confirmed 07/21/24] blood sugar diagnostic (True Metrix Glucose Test Strip) #100 strips 08/06/23 [Rx Confirmed 07/09/24] nortriptyline 10 mg capsule 20 mg PO HS 11/17/23 [History Confirmed 07/21/24] levothyroxine 112 mcg tablet See Rx Instructions .Route .COMPLEX #90 tabs 02/20/24 [Rx Confirmed 07/21/24] glimepiride 1 mg tablet 1 mg PO DAILY 90 days #90 tabs 02/27/24 [Rx Confirmed 07/21/24] thiamine HCl (vitamin B1) 100 mg capsule 100 mg PO DAILY 07/09/24 [History Confirmed 07/21/24] acetaminophen 325 mg tablet (Pain Reliever (acetaminophen)) 650 mg PO Q6HR PRN pain 07/21/24 [History Confirmed 07/21/24] propranolol 10 mg tablet mg 07/21/24 [History] buspirone 15 mg tablet 15 mg PO BID 07/22/24 [History Confirmed 07/22/24] oxybutynin chloride 5 mg tablet 5 mg PO BID-TID PRN bladder spasms #30 tabs 07/22/24 [Rx] Exam Physical Exam Vital Signs: Temp Pulse Resp BP Pulse Ox O2 Del Method 97.7 F 86 18 146/72 H 98 Room Air 07/21/24 11:23 07/21/24 16:26 07/21/24 16:26 07/21/24 16:26 07/21/24 16:26 07/21/24 16:26 Narrative: General: AOx4, no acute distress, ABCD HEENT: head atraumatic, normocephalic, moist mucous membranes Neck: supple no masses, no lymphadenopathy CVS: regular rate and rhythm, no murmurs or gallops Respiratory: clear to auscultation bilaterally, no wheezing or crackles, symmetric expansion GI: soft, nondistended, nontender, positive bowel sounds with no organomegaly : Left CVA tenderness present. Extremity: moves all extremities, no restrictions of movements, no calf tenderness, no edema Neuro: Moves all extremities in all planes of motion. Skin: dry, intact no rashes or lesions Psych: Cooperative, congruent mood, bright affect Results - Hospitalist H&P Lab Results Labs: Laboratory Last Values Corrected WBC 9.7 X10E3/uL (3.8-11.6) 07/21/24 13:35 Uncorrected WBC Count 9.7 x10E3/uL (3.8-11.6) 07/21/24 13:35 RBC 5.11 x10E6/uL (3.60-5.00) H 07/21/24 13:35 Hgb 14.9 g/dL (11.8-15.4) 07/21/24 13:35 Hct 45.5 % (34.0-46.4) 07/21/24 13:35 MCV 89.0 fl (80-100) 07/21/24 13:35 MCH 29.1 pg (24.7-34.3) 07/21/24 13:35 MCHC 32.7 g/dL (32.0-35.0) 07/21/24 13:35 RDW 13.9 % (11.9-15.3) 07/21/24 13:35 Plt Count 308 x10E3/uL (150-450) 07/21/24 13:35 MPV 9.2 fl (6.3-10.7) 07/21/24 13:35 Neut % (Auto) 63.3 % (.) 07/21/24 13:35 Lymph % (Auto) 25.2 % (.) 07/21/24 13:35 [place] % (Auto) 7.9 % (.) 07/21/24 13:35 Eos % (Auto) 2.5 % (.) 07/21/24 13:35 Baso % (Auto) 1.1 % (.) 07/21/24 13:35 Nucleat RBC Rel Count 0.1 /100 WBC (0-0.5) 07/21/24 13:35 Neut # (Auto) 6.1 x10E3/uL (1.8-7.7) 07/21/24 13:35 Lymph # (Auto) 2.4 x10E3/uL (1.00-4.8) 07/21/24 13:35 [place] # (Auto) 0.8 x10E3/uL (0.0-0.8) 07/21/24 13:35 Eos # (Auto) 0.2 x10E3/uL (0.0-0.45) 07/21/24 13:35 Baso # (Auto) 0.1 x10E3/uL (0.0-0.2) 07/21/24 13:35 Monocyte Dist Width 17.93 % (0.00-20.00) 07/21/24 13:35 PHA Creatinine Clear 63.61 07/21/24 13:35 Sodium 135 mmol/L (136-145) L 07/21/24 13:35 Potassium 4.2 mmol/L (3.5-5.1) 07/21/24 13:35 Chloride 108 mmol/L (98-107) H 07/21/24 13:35 Carbon Dioxide 18.0 mmol/L (21.0-31.0) L 07/21/24 13:35 Anion Gap 13.2 mEq/L (6.0-15.0) 07/21/24 13:35 BUN 22 mg/dL (7-25) 07/21/24 13:35 Creatinine 0.86 mg/dL (0.60-1.20) 07/21/24 13:35 Est GFR (CKD-EPI) > 60.0 mL/Min 07/21/24 13:35 Glucose 160 mg/dL (70-100) H 07/21/24 13:35 Calcium 9.2 mg/dL (8.6-10.3) 07/21/24 13:35 Total Bilirubin 0.4 mg/dl (0.3-1.0) 07/21/24 13:35 AST 15 U/L (13-39) 07/21/24 13:35 ALT 17 U/L (7-52) 07/21/24 13:35 Alkaline Phosphatase 81 U/L (34-104) 07/21/24 13:35 Total Protein 7.5 gm/dL (6.4-8.9) 07/21/24 13:35 Albumin 4.0 gm/dL (3.5-5.7) 07/21/24 13:35 Globulin 3.5 gm/dL 07/21/24 13:35 Albumin/Globulin Ratio 1.1 07/21/24 13:35 Lipase 179.0 U/L (11.0-82.0) H 07/21/24 13:35 Urine Color Dark-yellow (Yellow) A 07/21/24 13:39 Urine Appearance Turbid (Clear) A 07/21/24 13:39 Urine pH 5.5 (5.0-9.0) 07/21/24 13:39 Ur Specific [place] 1.018 (1.001-1.030) 07/21/24 13:39 Urine Protein 50 mg/dL (Negative) H 07/21/24 13:39 Urine Glucose (UA) Normal mg/dL (Normal) 07/21/24 13:39 Urine Ketones Negative (Negative) 07/21/24 13:39 Urine Occult Blood 2+ (Negative) H 07/21/24 13:39 Urine Nitrite Negative (Negative) 07/21/24 13:39 Urine Bilirubin Negative (Negative) 07/21/24 13:39 Urine Urobilinogen Normal mg/dL (Normal) 07/21/24 13:39 Ur Leukocyte Esterase 4+ (Negative) H 07/21/24 13:39 Urine RBC 20-49 /HPF (0-4) H 07/21/24 13:39 Urine WBC Innumerable /HPF (0-4) H 07/21/24 13:39 Urine WBC Clumps Many /LPF (None Seen) H 07/21/24 13:39 Ur Squamous Epith Cells 10-19 /HPF (0-2) H 07/21/24 13:39 Calcium Oxalate Crystal Rare /HPF 07/21/24 13:39 Urine Bacteria 3+ /HPF (None Seen) H 07/21/24 13:39 Hyaline Casts None /LPF (0-8) 07/21/24 13:39 Urine Mucus Rare /LPF 07/21/24 13:39 Assessment & Plan Assessment/Plan (1) Hydroureteronephrosis: (2) Bladder wall thickening: (3) Lesion of bladder: (4) UTI (urinary tract infection): (5) Hydronephrosis: (6) Nephrolithiasis: (7) Pacemaker: (8) Type 2 diabetes mellitus with hyperglycemia: (9) Hypothyroidism: (10) Hypertension: Plan Hydroureteronephrosis Bladder wall thickening Lesion of bladder UTI Hydronephrosis Nephrolithiasis Patient notes that her pain is well-controlled at this time. Lab review reveals 1 cm kidney stone in left kidney. Mass of left lateral wall of bladder is causing the hydroureteronephrosis. Urology was consulted. -Continue consultation with urology. -Start Flomax. -Start Motrin for pain. -Continue ceftriaxone 2 g IV every 24 hours. -Monitor vitals every 4 hours. -Plan at this time is for cystoscopy procedure on Friday after UTI has been treated with antibioticfor 2 days. -Recheck CBC and BMP in the morning. Chronic conditions Pacemaker: Applied telemetry. Monitor vitals every 4 hours. Type 2 diabetes mellitus: Continue glimepiride. Monitor glucose ACHS. Hypothyroidism: Continue Synthroid. Monitor vitals every 4 hours. Hypertension: Continue propranolol. Monitor vitals every [address] Wylie Attestation: Patient was personally seen by me on the day of encounter. I reviewed her history and performed keyelements of exam and formulated the plan of care and confirmed the nurse note above. Plan of care reflects my direct input IP vs OBS Justification Based on differential dx, clinical care plan, and risk of adverse events, if untreated, in my clinical judgement this patient requires an acute care setting as: INPATIENT because of an expectation ofan over 2 midnight stay. Estimated length of stay (# of days): 2 Documented By: Gagan Wylie MD 5 [id number] Signed By: 07/22/24 1707 07/22/24 [facility]03-13-2025 [place] [address] Hospitalist Progress Note Signed Patient: Rufino Collins MR#: [id number] : 1940 Acct:[id number] Age/Sex: 84 / F Adm Date: 5 Loc: Room: [address] [place] [address] Type: ADM IN Attending Dr: Gagan Wylie MD Copies to: ~ Date of Service: 07/22/2024 Subjective Subjective Narrative: Ms. Collins is resting comfortably in bed this morning on entrance to the room. Patient had cystoscopy procedure done today. Report reveals very cloudy urine with difficulty with visualization. No masses were appreciated on the cystoscopy. Cytology of the urine was sent. Stents were placed using wire guidance. Urology recommends patient stays in the hospital for further treatment of UTI. Patient notes that she is feeling a little better today. Shewould like to drink more fluids to help get her kidney stones out. All questions and concerns were addressed with the patient. Exam Physical Exam Vital Signs: Temp Pulse Resp BP Pulse Ox O2 Del Method O2 Flow Rate 98.7 F 80 16 94/56 L 98 Room Air 8 07/22/24 13:07/22/24 13:07/22/24 13:07/22/24 13:07/22/24 13:07/22/24 13:07/22/24 13:00 Narrative: General: AOx4, no acute distress, ABCD HEENT: head atraumatic, normocephalic, moist mucous membranes Neck: supple no masses, no lymphadenopathy CVS: regular rate and rhythm, no murmurs or gallops Respiratory: clear to auscultation bilaterally, no wheezing or crackles, symmetric expansion GI: soft, nondistended, nontender, positive bowel sounds with no organomegaly : Left CVA tenderness present, urine is cloudy with some redness in catheter bag Extremity: moves all extremities, no restrictions of movements, no calf tenderness, no edema Neuro: Moves all extremities in all planes of motion. Skin: dry, intact no rashes or lesions Psych: Cooperative, congruent mood, bright affect Objective Lab Results 07/22/24 06:24 07/22/24 06:24 Microbiology Results Microbiology 07/21/24 13:39 Urine - Clean-Voided Midstream Urine Culture - Preliminary <9,000 colonies/ml mixed bacterial skin contaminants 1 Day Meds Allergies and Active Meds Allergies metformin Allergy (Unknown, Verified 07/21/24 16:18) Unknown Reaction moxifloxacin (Avelox) Allergy (Unknown, Verified 07/22/24 10:34) Chest Pain oxycodone (Percocet) Allergy (Unknown, Verified 07/22/24 10:34) Nausea pepper (genus Capsicum) Allergy (Unknown, Verified 07/22/24 10:34) Itching Sulfa (Sulfonamide Antibiotics) Allergy (Unknown, Verified 07/22/24 10:34) Nausea sulfadiazine Allergy (Unknown, Verified 07/21/24 16:18) Comment:Sulfa acetaminophen (Percocet) Adverse Reaction (Unknown, Verified 07/22/24 10:34) Nausea Active Meds: Active Medications Generic Name Dose Route Start Last Admin Trade Name Freq PRN Reason Stop Dose Admin Buspirone HCl 15 mg 07/22/24 09:00 07/22/24 08:52 Buspirone 15 Mg Tablet PO 07/22/25 08:59 15 mg BID@0900,2200 JUANITA Administration Buspirone HCl 7.5 mg 07/22/24 17:00 Buspirone 15 Mg Tablet PO 07/22/25 16:59 DAILY.WITH.SUPPER JUANITA Famotidine 10 mg 07/21/24 19:08 Famotidine 20 Mg Tablet PO 07/21/25 19:07 BID PRN indigestion Glimepiride 1 mg 07/22/24 09:00 07/22/24 08:53 Glimepiride 1 Mg Tablet PO 07/22/25 08:59 1 mg DAILY JUANITA Administration Heparin Sodium (Porcine) 5,000 unit 07/21/24 22:00 07/22/24 06:25 Heparin 5,000 Unit/Ml Vial SUBCUT 07/21/25 21:59 5,000 unit Q8HR JUANITA Administration Ceftriaxone Sodium 2 gm in 50 mls @ 100 mls/hr 07/22/24 16:00 Rocephin IV Q24H JUANITA Lactated Ringer's 1,000 mls @ 20 mls/hr 07/22/24 09:40 07/22/24 10:05 Lactated Ringers IV 07/23/24 09:39 20 mls/hr .Q24H ONE Administration Ibuprofen 600 mg 07/21/24 16:45 07/21/24 23:46 Ibuprofen 600 Mg Tablet PO 07/21/25 16:44 600 mg Q6H PRN Administration Kidney stone Ketorolac Tromethamine 15 mg 07/22/24 14:58 Ketorolac Tromethamine 15 Mg/Ml Vial IV-PUSH 07/27/24 14:57 Q6H PRN Pain Levothyroxine Sodium 112 mcg 07/22/24 06:30 07/22/24 06:27 Levothyroxine 112 Mcg Tablet PO 07/22/25 06:29 112 mcg DAILY.0630 JUANITA Administration Nortriptyline HCl 20 mg 07/21/24 22:00 07/21/24 22:23 Nortriptyline 10 Mg Capsule PO 07/21/25 21:59 20 mg HS JUANITA Administration Oxybutynin Chloride 5 mg 07/22/24 14:58 Oxybutynin Chloride 5 Mg Tablet PO 07/22/25 21:59 TID PRN BLADDER SPASMS Propranolol HCl 10 mg 07/22/24 09:00 07/22/24 08:52 Propranolol 10 Mg Tablet PO 07/22/25 08:59 10 mg QID JUANITA Administration Sodium Chloride 0 ml 07/21/24 11:23 07/22/24 10:48 Sodium Chloride 0.9 % 10 Ml Syringe IV-PUSH 07/21/25 11:22 4 ml PRN PRN Administration Flush Tamsulosin HCl 0.4 mg 07/22/24 09:00 07/22/24 08:52 Tamsulosin 0.4 Mg Cap.Er.24h PO 07/22/25 08:59 0.4 mg DAILY JUANITA Administration A&P - Hospitalist Assessment/Plan (1) Hydroureteronephrosis: (2) Bladder wall thickening: (3) Lesion of bladder: (4) UTI (urinary tract infection): (5) Hydronephrosis: (6) Nephrolithiasis: (7) Pacemaker: (8) Type 2 diabetes mellitus with hyperglycemia: (9) Hypothyroidism: (10) Hypertension: Plan Hydroureteronephrosis Bladder wall thickening Lesion of bladder UTI Hydronephrosis Nephrolithiasis Patient notes that her pain is well-controlled at this time. Cystoscopy procedure is done. UTI is primary concern at this time. -Continue consultation with urology. -Continue Flomax. -Continue Motrin for pain. -Continue ceftriaxone 2 g IV every 24 hours. -Monitor vitals every 4 hours. -Await culture results. Once results are obtained, patient can be discharged with specific antibiotic. -Recheck CBC and BMP in the morning. Chronic conditions Pacemaker: Applied telemetry. Monitor vitals every 4 hours. Type 2 diabetes mellitus: Continue glimepiride. Monitor glucose ACHS. Hypothyroidism: Continue Synthroid. Monitor vitals every 4 hours. Hypertension: Continue propranolol. Monitor vitals every [address] Wylie Attestation: Patient was personally seen by me on the day of encounter. I reviewed her history and performed keyelements of exam and formulated the plan of care and confirmed the nurse note above. Plan of care reflects my direct input Documented By: Gagan Wylie MD 5 [id number] Signed By: 07/22/24 1707 07/22/24 1511 [facility]03-13-2025 Consult note Author Jessica Linton [facility] Note Date/Time July 22, 2024 12: 25pm [facility] [address] [place] [address] Urology Consult Note Signed Patient: Rufino Collins MR#: [id number] : 1940 Acct:[id number] Age/Sex: 84 / F Adm Date: Loc: Room: [address] [place] [address] Type: ADM IN Attending Dr: Gagan Wylie MD Copies to: DO Gagan Hernandez MD Kathy M Lue, MD~ History of Present Illness Consult Details Consult Date: 07/22/2024 Reason for Urology Consult: Obstructive uropathy Requesting Provider: Gagan Wylie MD HPI: 84 year old female with a remote history of kidney stones, DM2 who presents to the ER yesterday with persistent UTI symptoms despite antibiotic treatment and left flank pain. UA suggestive of UTI and + leuks and bacteria. Labs wnl. CT AP wo contrast notes mild left hydroureteronephrosis down to left lateral bladder wall thickening, worrisome for neoplasm. 10 x 7 mm left renal pelvis stone and 4mm kidney stone also noted. Patient received IV ceftriaxone, admitted for further management of complicated UTI. Urology consulted for the above. Pt continues to have low urine output, dysuria, urgency and frequency and left flank pain. Denies fever, chills, n/v or gross hematuria. Baseline denies issuesvoiding or incontinence. Never a smoker, no malignancy risk factors. Prior stones treated by Dr. Pfeiffer and Dr. Michel years ago. ESWL and stent, did not do well with ESWL Review of Systems Review of Systems Review of systems: General: denies fever, chills, wt loss Skin: denies rash or jaundice HEENT: denies epistaxis or oral lesion Neurological: denies weakness or sensory change Respiratory: denies dyspnea or shortness of breath Cardiac: denies chest pain or palpitations Gastrointestinal: denies nausea, emesis, diarrhea Urinary: + dysuria -hematuria, see HPI Musculoskeletal: denies muscle +L hip and back pain Psychiatric: denies mood or affect disorder Hematologic: denies easy bleeding or bruising [facility] Medical History Bladder wall thickening CT: left sided bladder wall thickening near the UVJ, mild left hydroureteronephrosis - 07/2024 Obesity Type 2 diabetes mellitus with hyperglycemia Pacemaker Irritable bowel syndrome with diarrhea Hypothyroidism Hypertension Generally unsteady Gastroesophageal reflux disease SHELLEY (generalized anxiety disorder) Edema Autoimmune thyroiditis Surgical History History of tonsillectomy History of hysterectomy History of surgery of head Hx of cholecystectomy History of bilateral knee replacement History of carpal tunnel surgery Family History Father Family/Other Legacy FamHx Problem: One sister :NO FAMILY HX OF COLON CANCER Mother Social History Smoking Status: Never smoker Substance Use Type: None Meds Medications and Allergies Allergies metformin Allergy (Unknown, Verified 07/21/24 16:18) Unknown Reaction moxifloxacin (Avelox) Allergy (Unknown, Verified 07/22/24 10:34) Chest Pain oxycodone (Percocet) Allergy (Unknown, Verified 07/22/24 10:34) Nausea pepper (genus Capsicum) Allergy (Unknown, Verified 07/22/24 10:34) Itching Sulfa (Sulfonamide Antibiotics) Allergy (Unknown, Verified 07/22/24 10:34) Nausea sulfadiazine Allergy (Unknown, Verified 07/21/24 16:18) Comment:Sulfa acetaminophen (Percocet) Adverse Reaction (Unknown, Verified 07/22/24 10:34) Nausea Home Medications blood-glucose meter (True Metrix Glucose Meter) #1 ea 07/03/23 [Rx Confirmed 07/09/24] cholecalciferol (vitamin D3) 25 mcg (1,000 unit) capsule 25 mcg PO DAILY 07/04/23 [History Confirmed 07/21/24] famotidine 10 mg tablet 10 mg PO BID PRN indigestion 07/04/23 [History Confirmed 07/21/24] hydrocortisone 2.5 % topical cream with perineal applicator (Anusol-HC) 1 applictopical BID PRN hemorrhoids 07/04/23 [History Confirmed 07/21/24] multivitamin with minerals (Hair,Skin and Nails tablet) 1 tab PO DAILY 07/04/23 [History Confirmed 07/21/24] propranolol 20 mg tablet 20 mg PO TID 07/04/23 [History Confirmed 07/21/24] vitamin B complex 1 tab PO DAILY 07/04/23 [History Confirmed 07/21/24] blood sugar diagnostic (True Metrix Glucose Test Strip) #100 strips 08/06/23 [Rx Confirmed 07/09/24] nortriptyline 10 mg capsule 20 mg PO HS 11/17/23 [History Confirmed 07/21/24] levothyroxine 112 mcg tablet See Rx Instructions .Route .COMPLEX #90 tabs 02/20/24 [Rx Confirmed 07/21/24] glimepiride 1 mg tablet 1 mg PO DAILY 90 days #90 tabs 02/27/24 [Rx Confirmed 07/21/24] thiamine HCl (vitamin B1) 100 mg capsule 100 mg PO DAILY 07/09/24 [History Confirmed 07/21/24] acetaminophen 325 mg tablet (Pain Reliever (acetaminophen)) 650 mg PO Q6HR PRN pain 07/21/24 [History Confirmed 07/21/24] propranolol 10 mg tablet mg 07/21/24 [History] buspirone 15 mg tablet 15 mg PO BID 07/22/24 [History Confirmed 07/22/24] Exam Physical Exam Vital Signs: Temp Pulse Resp BP Pulse Ox O2 Del Method 98.0 F 77 16 129/68 96 Room Air 07/22/24 10:52 07/22/24 10:52 07/22/24 10:52 07/22/24 10:52 07/22/24 10:52 07/22/24 10:52 Narrative: General: The patient appears nontoxic. Resting comfortably in bed Skin: Warm, dry. No gross lesions are identified. HEENT: Normocephalic, atraumatic. Oral mucosa moist. Respiratory: No increased respiratory effort. On room air Cardiac: Regular rate and rhythm GI: Abdomen is soft, nontender, nondistended : The bladder is nonpalpable. There is L CVA tenderness, none on right. Musculoskeletal: Moves all extremities, normal strength Neurologic: Awake, alert, oriented Psychiatric: Affect normal to clinical condition, coorperative Results - Urology Labs 07/22/24 06:24 07/22/24 06:24 Labs: Laboratory Results - Last 48 hrs. 07/22/24 10:30: POC Glucose 154, POC Glucose Comment Glu2: cleaned meter 07/22/24 06:24: Corrected WBC 8.0, Uncorrected WBC Count 8.0, RBC 4.70, Hgb 13.6, Hct 41.2, MCV 87.7, MCH 29.0, MCHC 33.0, RDW 13.6, Plt Count 295, MPV 9.1,Neut % (Auto) 59.4, Lymph % (Auto) 26.0, [place] % (Auto) 9.9, Eos % (Auto) 3.8, Baso % (Auto) 0.9, Nucleat RBC Rel Count 0.1, Neut # (Auto) 4.7, Lymph # (Auto) 2.1, [place] # (Auto) 0.8, Eos # (Auto) 0.3, Baso # (Auto) 0.1, PHA Creatinine Clear 58.92, Sodium 137, Potassium 4.0, Chloride 107, Carbon Dioxide 22.2, AnionGap 11.8, BUN 22, Creatinine 0.93, Est GFR (CKD-EPI) > 60.0, Glucose 157 H, Calcium 8.8 07/21/24 13:39: Urine Color Dark-yellow A, Urine Appearance Turbid A, Urine pH 5.5, Ur Specific [place] 1.018, Urine Protein 50 H, Urine Glucose (UA) Normal, Urine Ketones Negative, Urine Occult Blood 2+ H, Urine Nitrite Negative, Urine Bilirubin Negative, Urine Urobilinogen Normal, Ur Leukocyte Esterase 4+ H, UrineRBC 20-49 H, Urine WBC Innumerable H, Urine WBC Clumps Many H, Ur Squamous EpithCells 10-19 H, Calcium Oxalate Crystal Rare, Urine Bacteria 3+ H, Hyaline Casts None, Urine Mucus Rare 07/21/24 13:35: Corrected WBC 9.7, Uncorrected WBC Count 9.7, RBC 5.11 H, Hgb 14.9, Hct 45.5, MCV 89.0, MCH 29.1, MCHC 32.7, RDW 13.9, Plt Count 308, MPV 9.2,Neut % (Auto) 63.3, Lymph % (Auto) 25.2, [place] % (Auto) 7.9, Eos % (Auto) 2.5, Baso % (Auto) 1.1, Nucleat RBC Rel Count 0.1, Neut # (Auto) 6.1, Lymph # (Auto) 2.4, [place] # (Auto) 0.8, Eos # (Auto) 0.2, Baso # (Auto) 0.1, Monocyte Dist Width17.93, PHA Creatinine Clear 63.61, Sodium 135 L, Potassium 4.2, Chloride 108 H, Carbon Dioxide 18.0 L, Anion Gap 13.2, BUN 22, Creatinine 0.86, Est GFR (CKD-EPI) > 60.0, Glucose 160 H, Calcium 9.2, Total Bilirubin 0.4, AST 15, ALT 17, Alkaline Phosphatase 81, Total Protein 7.5, Albumin 4.0, Globulin 3.5, Albumin/Globulin Ratio 1.1, Lipase 179.0 H Microbiology Microbiology: 07/21/24 13:39 Urine - Clean-Voided Midstream Urine Culture - Preliminary <9,000 colonies/ml mixed bacterial skin contaminants [address] scan - abdomen: report reviewed and image reviewed CT scan - pelvis: report reviewed and image reviewed Assessment/Plan (1) Hydroureteronephrosis: Code(s): N13.30 - Unspecified hydronephrosis (2) Bladder wall thickening: Code(s): N32.89 - Other specified disorders of bladder (3) Nephrolithiasis: Code(s): N20.0 - Calculus of kidney (4) UTI (urinary tract infection): Code(s): N39.0 - Urinary tract infection, site not specified (5) Acute flank pain: Code(s): R10.9 - Unspecified abdominal pain Plan 84 year old female with a history of kidney stones, DM2 who is admitted with persistent, symptomatic complex UTI, left flank pain and findings of large left renal pelvis stone and left hydroureteronephrosis down to left lateral bladder wall thickening, worrisome for neoplasm. On review, renal pelvis stone appears to be obstructing. Discussed risks/benefits of management options in setting of obstructing stone, hydronephrosis, UTI and potential malignancy. Risk of upper tract seeding discussed if bladder tumor noted and stent placed. Option for transfer for perc nephrostomy tube offered, pt declined. Risk of sepsis, renal failure, progression of malignancy if present was discussed without intervention. Pt understands stone will be treated at later date once UTI fully treated. Pt elects to proceed to proceed with cystoscopy, left retrograde pyelogram, leftureteral stent placement, possible TURBT. Risks were discussed including but not limited to bleeding, pain, infection, damage to surrounding structures, inability to place a stent and/or treat the stone, upper tract seeding, bladder perforation, and need for additional procedures. Pt understands if a stent is placed it is not permanent and needs eulogio removed or exchanged within 3 months to prevent encrustation, infection, permanent renal damage, and/or potential need for more invasive surgeries. Documented By: Jessica Linton MD 07/22/24 1215 Signed By: <Electronically signed by Jessica Linton MD> 07/22/24 1225 [facility] Work Phone: [phone]) 471-332003-13-2025 [place] [address] Urology Consult Note Signed Patient: Rufino Collins MR#: [id number] : 1940 Acct:[id number] Age/Sex: 84 / F Adm Date: 5 Loc: Room: [address] [place] [address] Type: ADM IN Attending Dr: Gagan Wylie MD Copies to: DO Gagan Hernandez MD Kathy M Lue, MD~ History of Present Illness Consult Details Consult Date: 07/22/2024 Reason for Urology Consult: Obstructive uropathy Requesting Provider: Gagan Wylie MD HPI: 84 year old female with a remote history of kidney stones, DM2 who presents to the ER yesterday with persistent UTI symptoms despite antibiotic treatment and left flank pain. UA suggestive of UTI and+ leuks and bacteria. Labs wnl. CT AP wo contrast notes mild left hydroureteronephrosis down to left lateral bladder wall thickening, worrisome for neoplasm. 10 x 7 mm left renal pelvis stone and 4mmkidney stone also noted. Patient received IV ceftriaxone, admitted for further management of complicated UTI. Urology consulted for the above. Pt continues to have low urine output, dysuria, urgency and frequency and left flank pain. Denies fever, chills, n/v or gross hematuria. Baseline denies issu esvoiding or incontinence. Never a smoker, no malignancy risk factors. Prior stones treated by Dr. Pfeiffer and Dr. Michel years ago. ESWL and stent, did not do well with ESWL Review of Systems Review of Systems Review of systems: General: denies fever, chills, wt loss Skin: denies rash or jaundice HEENT: denies epistaxis or oral lesion Neurological: denies weakness or sensory change Respiratory: denies dyspnea or shortness of breath Cardiac: denies chest pain or palpitations Gastrointestinal: denies nausea, emesis, diarrhea Urinary: + dysuria -hematuria, see HPI Musculoskeletal: denies muscle +L hip and back pain Psychiatric: denies mood or affect disorder Hematologic: denies easy bleeding or bruising [facility] Medical History Bladder wall thickening CT: left sided bladder wall thickening near the UVJ, mild left hydroureteronephrosis - 07/2024 Obesity Type 2 diabetes mellitus with hyperglycemia Pacemaker Irritable bowel syndrome with diarrhea Hypothyroidism Hypertension Generally unsteady Gastroesophageal reflux disease SHELLEY (generalized anxiety disorder) Edema Autoimmune thyroiditis Surgical History History of tonsillectomy History of hysterectomy History of surgery of head Hx of cholecystectomy History of bilateral knee replacement History of carpal tunnel surgery Family History Father Family/Other Legacy FamHx Problem: One sister :NO FAMILY HX OF COLON CANCER Mother Social History Smoking Status: Never smoker Substance Use Type: None Meds Medications and Allergies Allergies metformin Allergy (Unknown, Verified 07/21/24 16:18) Unknown Reaction moxifloxacin (Avelox) Allergy (Unknown, Verified 07/22/24 10:34) Chest Pain oxycodone (Percocet) Allergy (Unknown, Verified 07/22/24 10:34) Nausea pepper (genus Capsicum) Allergy (Unknown, Verified 07/22/24 10:34) Itching Sulfa (Sulfonamide Antibiotics) Allergy (Unknown, Verified 07/22/24 10:34) Nausea sulfadiazine Allergy (Unknown, Verified 07/21/24 16:18) Comment:Sulfa acetaminophen (Percocet) Adverse Reaction (Unknown, Verified 07/22/24 10:34) Nausea Home Medications blood-glucose meter (True Metrix Glucose Meter) #1 ea 07/03/23 [Rx Confirmed 07/09/24] cholecalciferol (vitamin D3) 25 mcg (1,000 unit) capsule 25 mcg PO DAILY 07/04/23 [History Confirmed 07/21/24] famotidine 10 mg tablet 10 mg PO BID PRN indigestion 07/04/23 [History Confirmed 07/21/24] hydrocortisone 2.5 % topical cream with perineal applicator (Anusol-HC) 1 applictopical BID PRN hemorrhoids 07/04/23 [History Confirmed 07/21/24] multivitamin with minerals (Hair,Skin and Nails tablet) 1 tab PO DAILY 07/04/23 [History Confirmed 07/21/24] propranolol 20 mg tablet 20 mg PO TID 07/04/23 [History Confirmed 07/21/24] vitamin B complex 1 tab PO DAILY 07/04/23 [History Confirmed 07/21/24] blood sugar diagnostic (True Metrix Glucose Test Strip) #100 strips 08/06/23 [Rx Confirmed 07/09/24] nortriptyline 10 mg capsule 20 mg PO HS 11/17/23 [History Confirmed 07/21/24] levothyroxine 112 mcg tablet See Rx Instructions .Route .COMPLEX #90 tabs 02/20/24 [Rx Confirmed 07/21/24] glimepiride 1 mg tablet 1 mg PO DAILY 90 days #90 tabs 02/27/24 [Rx Confirmed 07/21/24] thiamine HCl (vitamin B1) 100 mg capsule 100 mg PO DAILY 07/09/24 [History Confirmed 07/21/24] acetaminophen 325 mg tablet (Pain Reliever (acetaminophen)) 650 mg PO Q6HR PRN pain 07/21/24 [History Confirmed 07/21/24] propranolol 10 mg tablet mg 07/21/24 [History] buspirone 15 mg tablet 15 mg PO BID 07/22/24 [History Confirmed 07/22/24] Exam Physical Exam Vital Signs: Temp Pulse Resp BP Pulse Ox O2 Del Method 98.0 F 77 16 129/68 96 Room Air 07/22/24 10:52 07/22/24 10:52 07/22/24 10:52 07/22/24 10:52 07/22/24 10:52 07/22/24 10:52 Narrative: General: The patient appears nontoxic. Resting comfortably in bed Skin: Warm, dry. No gross lesions are identified. HEENT: Normocephalic, atraumatic. Oral mucosa moist. Respiratory: No increased respiratory effort. On room air Cardiac: Regular rate and rhythm GI: Abdomen is soft, nontender, nondistended : The bladder is nonpalpable. There is L CVA tenderness, none on right. Musculoskeletal: Moves all extremities, normal strength Neurologic: Awake, alert, oriented Psychiatric: Affect normal to clinical condition, coorperative Results - Urology Labs 07/22/24 06:24 07/22/24 06:24 Labs: Laboratory Results - Last 48 hrs. 07/22/24 10:30: POC Glucose 154, POC Glucose Comment Glu2: cleaned meter 07/22/24 06:24: Corrected WBC 8.0, Uncorrected WBC Count 8.0, RBC 4.70, Hgb 13.6, Hct 41.2, MCV 87.7, MCH 29.0, MCHC 33.0, RDW 13.6, Plt Count 295, MPV 9.1,Neut % (Auto) 59.4, Lymph % (Auto) 26.0, [place] % (Auto) 9.9, Eos % (Auto) 3.8, Baso % (Auto) 0.9, Nucleat RBC Rel Count 0.1, Neut # (Auto) 4.7, Lymph # (Auto) 2.1, [place] # (Auto) 0.8, Eos # (Auto) 0.3, Baso # (Auto) 0.1, PHA Creatinine Clear 58.92, Sodium 137, Potassium 4.0, Chloride 107, Carbon Dioxide 22.2, AnionGap 11.8, BUN 22, Creatinine 0.93, Est GFR (CKD-EPI) > 60.0, Glucose 157 H, Calcium 8.8 07/21/24 13:39: Urine Color Dark-yellow A, Urine Appearance Turbid A, Urine pH 5.5, Ur Specific [place] 1.018, Urine Protein 50 H, Urine Glucose (UA) Normal, Urine Ketones Negative, Urine Occult Blood 2+ H, Urine Nitrite Negative, Urine Bilirubin Negative, Urine Urobilinogen Normal, Ur Leukocyte Esterase 4+ H, UrineRBC 20-49 H, Urine WBC Innumerable H, Urine WBC Clumps Many H, Ur Squamous EpithCells 10-19 H, Calcium Oxalate Crystal Rare, Urine Bacteria 3+ H, Hyaline Casts None, Urine Mucus Rare 07/21/24 13:35: Corrected WBC 9.7, Uncorrected WBC Count 9.7, RBC 5.11 H, Hgb 14.9, Hct 45.5, MCV 89.0, MCH 29.1, MCHC 32.7, RDW 13.9, Plt Count 308, MPV 9.2,Neut % (Auto) 63.3, Lymph % (Auto) 25.2, [place] % (Auto) 7.9, Eos % (Auto) 2.5, Baso % (Auto) 1.1, Nucleat RBC Rel Count 0.1, Neut # (Auto) 6.1, Lymph # (Auto) 2.4, [place] # (Auto) 0.8, Eos # (Auto) 0.2, Baso # (Auto) 0.1, Monocyte Dist Width17.93, PHA Creatinine Clear 63.61, Sodium 135 L, Potassium 4.2, Chloride 108 H, Carbon Dioxide 18.0 L, Anion Gap 13.2, BUN 22, Creatinine 0.86, Est GFR (CKD-EPI) > 60.0, Glucose 160 H, Calcium 9.2, Total Bilirubin 0.4, AST 15, ALT 17, Alkaline Phosphatase 81, Total Protein 7.5, Albumin 4.0, Globulin 3.5, Albumin/Globulin Ratio 1.1, Lipase 179.0 H Microbiology Microbiology: 07/21/24 13:39 Urine - Clean-Voided Midstream Urine Culture - Preliminary <9,000 colonies/ml mixed bacterial skin contaminants [address] scan - abdomen: report reviewed and image reviewed CT scan - pelvis: report reviewed and image reviewed Assessment/Plan (1) Hydroureteronephrosis: Code(s): N13.30 - Unspecified hydronephrosis (2) Bladder wall thickening: Code(s): N32.89 - Other specified disorders of bladder (3) Nephrolithiasis: Code(s): N20.0 - Calculus of kidney (4) UTI (urinary tract infection): Code(s): N39.0 - Urinary tract infection, site not specified (5) Acute flank pain: Code(s): R10.9 - Unspecified abdominal pain Plan 84 year old female with a history of kidney stones, DM2 who is admitted with persistent, symptomatic complex UTI, left flank pain and findings of large left renal pelvis stone and left hydroureteronephrosis down to left lateral bladder wall thickening, worrisome for neoplasm. On review, renal pelvis stone appears to be obstructing. Discussed risks/benefits of management options in setting of obstructing stone, hydronephrosis, UTIand potential malignancy. Risk of upper tract seeding discussed if bladder tumor noted and stent placed. Option for transfer for perc nephrostomy tube offered, pt declined. Risk of sepsis, renal failure, progression of malignancy if present was discussed without intervention. Pt understands stone will be treated at later date once UTI fully treated. Pt elects to proceed to proceed with cystoscopy, left retrograde pyelogram, leftureteral stent placement, possible TURBT. Risks were discussed including but not limited to bleeding, pain, infection, damage to surrounding structures, inability to place a stent and/or treat the stone, upper tract seeding, bladder perforation, and need for additional procedures. Pt understands if a stent is placed it is not permanent andneeds eulogio removed or exchanged within 3 months to prevent encrustation, infection, permanent renaldamage, and/or potential need for more invasive surgeries. Documented By: Jessica Linton MD 07/22/24 1215 Signed By: 07/22/24 1225 [facility]03-12-2025 Evaluation note* Diagnosis Onset Date Resolution Status Admit Date Acute flank pain acute July 212024 3:39pm Bladder wall thickening acute M 2024 3:39pm Hydronephrosis acute July 3:39pm Hydroureteronephrosis acute Jul 3:39pm Hypertension acute July 21, 2024 3:39pm Hypothyroidism acute July 3:39pm Lesion of bladder acute July 102024 3:39pm Nephrolithiasis acute July 3:39pm Pacemaker acute July 21 3:39pm Pyuria acute July 21 3:39pm Type 2 diabetes mellitus wit h hyperglycemia acute July 21, 2024 3:39pm UTI (urinary tract infection) acute July 21, 2024 3:39pm Bladder wall thickening acute 2024 11:15am Hydroureteronephrosis acute Jul 11:15am Hypertension acute July 26, 2024 11:15am Nephrolithiasis acute July 11:15am Type 2 diabetes mellitus wit h hyperglycemia acute July 26, 2024 11:15am UTI (urinary tract infection) acute July 26, 2024 11:15am Hypertension acute August 26, 2024 11:06am Nephrolithiasis acute August 11:06am Type 2 diabetes mellitus wit h hyperglycemia acute August 26, 2024 11:06am UTI (urinary tract infection) acute August 26, 2024 11:06am Pneumonia noneactive August 26 11:06am [facility] Work Phone: 1(588) 625-416203-12-2025 Radiology Diagnostic study [facility] [place] [address] [place] [address] CT Scan Report Signed Patient: Rufino Collins MR#: [id number] : 1940 Acct:[id number] Age/Sex: 84 / F ADM Date: 5 Loc: ER Room: Type: [facility] ER Attending Dr: Copies to: Adin Medley DO~ Ordering Provider: Adin Medley DO Date of Service: 07/21/24 CT/CT abdomen pelvis wo con: l flank pain CT ABDOMEN AND PELVIS WITHOUT INTRAVENOUS CONTRAST: CLINICAL HISTORY: Flank pain, left hip pain, history kidney stones COMPARISON: None TECHNIQUE: Spiral images were obtained through the abdomen and pelvis without intravenous contrast.This CT exam was performed using one or more following dose reduction techniques: Automated exposure control, adjustment of the mA and/or kV according to patient size, or use of iterative reconstruction technique. FINDINGS: Lung Bases: [Pacemaker leads within the heart. Small hiatal hernia. Minimal dependent atelectasis.] Organs:Right hepatic cyst superiorly. Otherwise the liver, spleen, adrenals, pancreas unremarkable.Gallbladder absent. Kidneys measure size. No right-sided hydronephrosis. Punctate right upper polerenal calculus. On the left left, there is mild left-sided hydroureteronephrosis.. There is evidence of a left sided calculus within left collecting system measuring 1.0 x 0.7 cm. Additional left-sided calculi up to4 mm size identified.[ GI: Mild to moderate retained stool. No bowel obstruction. Colonic diverticulosis.[ Pelvis:[At the level of the left ureterovesical junction of the left ureter, there is left bladder wall thickening and adjacent perivesical changes with bladder wall thickening measuring 9 mm. Uterusabsent. No adnexal mass.] Peritoneum/Retroperitoneum:There are few left-sided. Lymph nodes at the level of the left kidney, subcentimeter in size. No free air or free fluid. Aortic vascular dilatation.[ Abd wall/Bones:Multilevel degenerative changes throughout the lumbar spine.[ CT/CT abdomen pelvis wo con IMPRESSION: Left-sided hydroureteronephrosis possibly caused by left lateral bladder wall thickening and adjacent fat stranding findings worrisome for bladder neoplasm. Focal cystitis favor less likely. Considerurological consultation with cystoscopy.. Left-sided renal calculi largest which within the pelvis measuring 1 cm in size. These are nonobstructive Impression dictated by: Lucio Mcclure M.D.07/21/2024 3:15 PM Dictation Location: [place] [address] Transcribed By: [facility] 07/21/24 1515 Dictated By: Lucio Mcclure MD 07/21/24 1509 Signed By: 07/21/24 1515 [facility] Work Phone: [phone]) 384-504203-10-2025 Telephone encounter Note* Telephone Encounter - Aline Polo - 07/19/2024 2:39 PM EDT Received a fax from [employer] that states in order to be compliant, they recommend discontinuing one ofthe antichollnergic medications that the patient is on. See fax scanned in patient's chart. [facility]03-10-2025 Miscellaneous Notes* Telephone Encounter - Aline Polo - 07/19/2024 2:39 PM EDT Received a fax from [employer] that states in order to be compliant, they recommend discontinuing one ofthe antichollnergic medications that the patient is on. See fax scanned in patient's chart. documented in this encounter[facility] History of Present illness Narrative* Seth Nolasco APRN.[employer] - 07/14/2024 2:00 PM EST Images from the original note were not included. [facility] [place] [facility] Department of Cardiovascular Medicine SECTION OF ELECTROPHYSIOLOGY AND PACING OUTPATIENT VISIT DATE July 14, 2024 OUTPATIENT VISIT TYPE ESTABLISHED PRIMARY CARE PHYSICIAN: Manav Rajan (Aniket) [address] [place] [address] CHIEF COMPLAINT: Follow Up HISTORY OF PRESENT ILLNESS: Ms. Collins is a 84 year old female, patient of Dr. 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 She was last seen by Dr. Grewal in April of 2023. Since then, she reports that she has beendoing well from a cardiovascular perspective. She has had no chest pain, palpitations, dizziness orsyncope. Does not take any cardiac medciations. Discovered today that her remote transmitter is notcompatible with her new phone system. Will be receiving adaptor shortly. 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, dyslipidemia, hypothyroidsim PAST MEDICAL HISTORY Diagnosis Date Hypertension Hypothyroidism Kidney stones PMH - PAST MEDICAL HISTORY OF type 2 diabetes PAST SURGICAL HISTORY Procedure Laterality Date ADENOIDECTOMY [...] 06/26/2009 BAHA implant TONSILLECTOMY PRIMARY/SECONDARY <AGE [age] Tonsillectomy SOCIAL HISTORY Social History Tobacco Use Smoking status: Never Smokeless tobacco: Never Substance Use Topics Alcohol use: No Drug use: No FAMILY HISTORY Problem Relation Age of Onset Cancer Mother luekemia Diabetes Mother type 1 Heart Mother Hypertension Mother Lipids Mother ALLERGIES Allergen Reactions Moxifloxacin Intolerance thought I was having a heart attack w/ Avelox Percocet [Oxycodone* Intolerance Drops BP Capsaicin Itching Pravachol [Pravasta* Intolerance Muscle cramps Cephalexin Itching Clavulanic Acid Itching Flagyl [Metronidazo* Itching Levofloxacin Itching Sulfa (Sulfonamide * GI Upset MEDICATIONS: TRUE METRIX GLUCOSE TEST STRIP test strip USE 1 STRIP TO CHECK BLOOD SUGAR ONCE DAILY*E11.65* glimepiride (AMARYL) 1 mg tablet Take 1 mg by mouth daily with breakfast. nortriptyline (PAMELOR) 10 mg capsule Take 1 capsule by mouth two times a day. propranolol (INDERAL) 10 mg tablet Take 1 [...] daily. Patient denies taking this any longer REVIEW OF SYSTEMS: ROS is otherwise negative apart from what has been documented in HPI PHYSICAL EXAMINATION: BP 122/78 Pulse 97 Wt 104.1 kg (229 lb 8 oz) BMI 34.90 kg/m General: Well appearing, in no acute distress, speaking in complete sentences. Skin: No clubbing, no cyanosis. Neck: No jugular venous distention, no carotid bruits Lungs: Clear to auscultation bilaterally, no wheezing or rhonchi. Heart: Regular rhythm, S1, S2 present Abdomen: Soft, nontender, bowel sounds present Extremities: No peripheral edema . Grade 2/4 distal pulses bilaterally. Neuro: Oriented to person, place and time, alert, cooperative, gait coordinated. 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 AP 7.9%. JUNIOR FINANCIAL ANALYST 91%. * Heart Rate Histograms reviewed * Pacing and Detection Parameters were evaluated I have personally reviewed the Electrocardiogram. 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 No arrhythmias noted. Battery has ~1 year until it reaches GLADYS. Discussed process for generator exchange Advised patient to contact us if adapter for remote monitor is not received within 10 days as such will be essential to monitor for GLADYS. Follow up with Dr. Grewal in 1 year. CONTACT INFORMATION: Seth Nolasco APRN.[facility] [id number] [facility] [id number] Dept: [phone] documented in this encounterAvita [facility]03-[facility]-2025 NoteHNO ID: [id number] Author: SETH NOLASCO APRN.[employer] Service: ? Author Type: Nurse Practitioner Type: Progress Notes Filed: 07/14/2024 14:08 Note Text: [facility] [facility] Department of Cardiovascular Medicine SECTION OF ELECTROPHYSIOLOGY AND PACING OUTPATIENT VISIT DATE July 14, 2024 OUTPATIENT VISIT TYPE ESTABLISHED PRIMARY CARE PHYSICIAN: Manav Rajan (Yolis) [address] [place] [id number] CHIEF COMPLAINT: Follow Up HISTORY OF PRESENT ILLNESS: Ms. Collins is a 84 year old female, patient of Dr. 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 She was last seen by Dr. Grewal in April of 2023. Since then, she reports that she has been doing well from a cardiovascular perspective. She has had no chest pain, palpitations, dizziness or syncope. Does not take any cardiac medciations. Discovered today that her remote transmitter is not compatible with her new phone system. Will be receiving adaptor shortly. 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, dyslipidemia, hypothyroidsim PAST MEDICAL HISTORY Diagnosis Date Hypertension Hypothyroidism Kidney stones PMH - PAST MEDICAL HISTORY OF type 2 diabetes PAST SURGICAL HISTORY Procedure Laterality Date ADENOIDECTOMY [...] OF 06/26/2009 BAHA implant TONSILLECTOMY PRIMARY/SECONDARY Tonsillectomy SOCIAL HISTORY Social History Tobacco Use Smoking status: Never Smokeless tobacco: Never Substance Use Topics Alcohol use: No Drug use: No FAMILY HISTORY Problem Relation Age of Onset Cancer Mother luekemia Diabetes Mother type 1 Heart Mother Hypertension Mother Lipids Mother ALLERGIES Allergen Reactions Moxifloxacin Intolerance thought I was having a heart attack w/ Avelox Percocet [Oxycodone* Intolerance Drops BP Capsaicin Itching Pravachol [Pravasta* Intolerance Muscle cramps Cephalexin Itching Clavulanic Acid Itching Flagyl [Metronidazo* Itching Levofloxacin Itching Sulfa (Sulfonamide * GI Upset MEDICATIONS: TRUE METRIX GLUCOSE TEST STRIP test strip USE 1 STRIP TO CHECK BLOOD SUGAR ONCE DAILY*E11.65* glimepiride (AMARYL) 1 mg tablet Take 1 mg by mouth daily with breakfast. nortriptyline (PAMELOR) 10 mg capsule Take 1 capsule by mouth two times a day. propranolol (INDERAL) 10 mg tablet Take 1 [...] daily. Patient denies taking this any longer REVIEW OF SYSTEMS: ROS is otherwise negative apart from what has been documented in HPI PHYSICAL EXAMINATION: BP 122/78 Pulse 97 Wt 104.1 kg (229 lb 8 oz) BMI 34.90 kg/m? General: Well appearing, in no acute distress, speaking in complete sentences. Skin: No clubbing, no cyanosis. Neck: No jugular venous distention, no carotid bruits Lungs: Clear to auscultation bilaterally, no wheezing or rhonchi. Heart: Regular rhythm, S1, S2 present Abdomen: Soft, nontender, bowel sounds present Extremities: No peripheral edema . Grade 2/4 distal pulses bilaterally. Neuro: Oriented to person, place and time, alert, cooperative, gait coordinated. Left subclavian device site: clean, dry and intact with no drainage, signs of infection, erythema or erosion CARDIOVASCULAR MEDICINE TESTING: Labs: See care everywhere ECG 07/14/2024: Ventricular paced rhythm with PVCs ECHO (02/26/2015 9:17 AM) - LVEF ~63%; normal RV size and function Device Check 07/14/2024: * Normal Device Function * Alert (more content not included)...[facility]02-28-2025 Evaluation note* Diagnosis Onset Date Resolution Status Admit Date SHELLEY (generalized anxiety disorder) acute July 09, 2 025 1:20pm Hypertension acute June 1:20pm Hypothyroidism acute June 132024 1:20pm Obesity acute July 09, 2024 1:20pm Pacemaker acute July 09, 2024 1:20pm Type 2 diabetes mellitus wit h hyperglycemia acute July 09 2 025 1:20pm Dysuria noneactive July 09, 2024 1:20pm [facility] Work Phone: 1(634) 322-533302-28-2025 Evaluation note* Diagnosis Onset Date Resolution Status Admit Date SHELLEY (generalized anxiety disorder) acute July 09, 2 025 1:20pm Hypertension acute June 1:20pm Hypothyroidism acute June 132024 1:20pm Obesity acute July 09, 2024 1:20pm Pacemaker acute July 09, 2024 1:20pm Type 2 diabetes mellitus wit h hyperglycemia acute July 09 2 025 1:20pm Dysuria noneactive July 09, 2024 1:20pm Acute flank pain acute July 212024 3:39pm Bladder wall thickening acute 2024 3:39pm Hydronephrosis acute July 3:39pm Hydroureteronephrosis acute Jul 3:39pm Hypertension acute July 21, 2024 3:39pm Hypothyroidism acute July 3:39pm Lesion of bladder acute July 102024 3:39pm Nephrolithiasis acute July 3:39pm Pacemaker acute July 21 3:39pm Pyuria acute July 21 3:39pm Type 2 diabetes mellitus wit h hyperglycemia acute July 21, 2024 3:39pm UTI (urinary tract infection) acute July 21, 2024 3:39pm [facility] Work Phone: 1(167) 960-680002-28-2025 Evaluation note* Diagnosis Onset Date Resolution Status Admit Date SHELLEY (generalized anxiety disorder) acute July 09, 2 025 1:20pm Hypertension acute June 1:20pm Hypothyroidism acute June 132024 1:20pm Obesity acute July 09, 2024 1:20pm Pacemaker acute July 09, 2024 1:20pm Type 2 diabetes mellitus wit h hyperglycemia acute July 09 025 1:20pm Dysuria noneactive July 09, 2024 1:20pm Acute flank pain acute July 212024 3:39pm Bladder wall thickening acute [facility] 2024 3:39pm Hydronephrosis acute July 3:39pm Hydroureteronephrosis acute Jul 3:39pm Hypertension acute July 21, 2024 3:39pm Hypothyroidism acute July 3:39pm Lesion of bladder acute July 102024 3:39pm Nephrolithiasis acute July 3:39pm Pacemaker acute July 21 3:39pm Pyuria acute July 21 3:39pm Type 2 diabetes mellitus wit h hyperglycemia acute July 21, 2024 3:39pm UTI (urinary tract infection) acute July 21, 2024 3:39pm Bladder wall thickening acute [facility] 2024 11:15am Hydroureteronephrosis acute [facility] 2024 11:15am Hypertension acute July 26, 2024 11:15am Nephrolithiasis acute July 11:15am Type 2 diabetes mellitus wit h hyperglycemia acute July 26, 2024 11:15am UTI (urinary tract infection) acute July 26, 2024 11:15am [facility] Work Phone: 1(257) 869-699910-11-2024 NoteHNO ID: [id number] Author: RACHID ODELL MD Service: ? Author [...] 1 SD worse than population and [facility] History of Present illness Narrative* Rachid Odell MD - 02/20/2024 1:59 PM EDT 02/19/2023 PROMIS Global Health Physical [...] worse than population and warrants attention * Rachid Odell MD - 02/20/2024 1:48 PM EDT NEUROLOGY PROGRESS NOTE Rufino Collins [...] which included preparing to see the patient, jdrj-xd-izuw patient care, completing clinical documentation, obtaining and/or [...] population and warrants attention [facility]24 NoteHNO ID: [id number] Author: RACHID ODELL MD Service: ? Author [...] GAIT: Normal-based IMPRESSION: 1. (more content not included)...[facility] Telephone encounter Note* Telephone Encounter - Yadira Burnett RN - 02/16/2024 5:05 PM EDT Spoke with patient. Device has not connected recently. Attempted to trouble shoot several ways. Unable to get transmission to send. Gave number to [employer] to call and have them help troubleshoot monitor. [facility]10-07-[facility]24 Miscellaneous Notes* Telephone Encounter - Yadira Burnett RN - 02/16/2024 5:05 PM EDT Spoke with patient. Device has not connected recently. Attempted to trouble shoot several ways. Unable to get transmission to send. Gave number to [employer] to call and have them help troubleshoot monitor. * Telephone Encounter - Alla Cuenca RN - 02/16/2024 4:25 PM EDT Routing to the [facility]acer [facility] * Telephone Encounter - Isamar Ríos RN - 02/16/2024 9:16 AM EDT Pt calling Has pacemaker about 10 yrs Last office visit on 04/16/23, device check on Checks b/p at home Blood pressure monitor shows irregular heart beat the last 2 days No symptoms/ denies palpations/feeling of irregular HR-feels regular/dizziness/chest pain/ sob Did let her pcp know/ went to hospital on Friday at [facility] and had an EKG done and HRwas 88 bpm but told by pcp everything was ok. Has an upcoming appointment for device check and provider appointment with cardiology on 04/19/24 Asking if anything showed up on monitor or if she should be concerned and can go about her activities (bike riding, etc) Pt can be reached at: [phone], ok to leave a message documented in this encounterAvita [facility]10-07-2024 Telephone encounter Note * Telephone Encounter - Alla Cuenca RN - 02/16/2024 4:25 PM EDT [facility]outing to the [facility] Telephone encounter Note* Telephone Encounter - Isamar Ríos RN - 02/16/2024 9:16 AM EDT Pt calling Has pacemaker about 10 yrs Last office visit on 04/16/23, device check on Checks b/p at home Blood pressure monitor shows irregular heart beat the last 2 days No symptoms/ denies palpations/feeling of irregular HR-feels regular/dizziness/chest pain/ sob Did let her pcp know/ went to hospital on Friday at [facility] and had an EKG done and HRwas 88 bpm but told by pcp everything was ok. Has an upcoming appointment for device check and provider appointment with cardiology on 04/19/24 Asking if anything showed up on monitor or if she should be concerned and can go about her activities (bike riding, etc) Pt can be reached at: [phone], ok to leave a message [facility]10-05-[facility] Telephone encounter Note* Telephone Encounter - Gurpreet Cruz APRN.CNP - 02/14/2024 11:24 AM EDT [facility] Contact Center Phone [...] Resolution: 02/14/2024 Time of Resolution 11:25 AM T [facility] Work Phone: 1(853) 210-429210-05-2024 Miscellaneous Notes* Telephone Encounter - Gurpreet Cruz APRN.SIMON - 02/14/2024 11:24 AM EDT [facility] Contact Center Phone [...] of Resolution 11:25 AM documented in this encounterAvita [facility]08-30-2024 Evaluation note* Diagnosis Onset Date Resolution Status Admit Date SHELLEY (generalized anxiety disorder) acute January 08 1:49pm Hypertension acute January 09, 2024 1:49pm Hypothyroidism acute December, 2023 1:49pm Obesity acute January 08, 2 024 1:49pm Pacemaker acute January 08, 2 024 1:49pm Type 2 diabetes mellitus wit h hyperglycemia acute January 08 1:49pm Medicare annual wellness visit, subsequent noneactive January 08, 2 024 1:49pm [facility] Work Phone: 1(920) 878-172704-12-2024 History of Present illness Narrative* Rachid Odell [...] which included preparing to see the patient, spos-nm-yzlz patient care, completing clinical documentation, obtaining and/or [...] worse than population and warrants attention * Brittani García LPN - 08/22/2023 1:27 PM EDT 02/19/2023 [...] population and warrants attention documented in this encounterAv[facility]03-25-2024 Miscellaneous Notes* Telephone Encounter - Denise Gonzales - 08/04/2023 12:14 PM EDT Patient has been identified by name and date of : Yes Requested Prescriptions Pending Prescriptions Disp Refills nortriptyline (PAMELOR) 10 mg capsule 90 capsule 0 Sig: Take 1 capsule by mouth daily at bedtime. RX INSTRUCTIONS: Denise Gonzales documented in this encounterAvita [facility]01-12-2024 Evaluation note* Encounter Date Diagnosis Assessment Notes [...] loss if overweight.Monitor for dysphagia. Continue Pepcid AC [employer] [facility] 12-30-2023 Evaluation note* Encounter Date Diagnosis Assessment Notes Treatment Notes Treatment Clinical Notes Apr, Acute cystitis without hematuria (ICD-10 - N30.00) [employer] [facility] 12-23-2023 Evaluation note* Encounter Date Diagnosis [...] the ER for worsening symptoms or concerns [employer] [facility] 12-07-2023 Hospital Discharge instructions Patient Education [...] include: ?8 oz (237 mL) of milk, gymmlgk-phincbtvjuth-mrxxu milk, and calcium- fortifiedfruit juice. Calcium-fortified means [...] ?Spinach (cooked), rhubarb, beets, sweet potatoes, and Prydeinig chard. ?Peanuts. ?Potato chips, vietnamese fries, and baked potatoes with skin on. ?Nuts and nut products. ?Chocolate. If you regularly take a diuretic medicine, make sure to eat at least 1 or 2 servings of fruits or vegetables that are high in potassium each day. These include: ?Avocado. ?Banana. ?[place]udson, prune, carrot, or tomato juice. ?Baked potato. [...] magnesium, fish oil, or vitamin B6. Take dgza-snw-kdrtevq and prescription medicines only as told by [...] Casseroles. Pizza. Lasagna. Frozen meals. Potato chips. Ivorian fries. The items listed above may not [...] provider. Document Revised: 08/08/2022 Document Reviewed: 08/08/2022 [employer] Patient Education 2022 [employer]. Follow Up Care 04/15/2023 08:26:17 With:PEEWEE Luna APRN, RUDY Metz, URL Address: When: Unknown Comments:Pending sxs after abx course. [facility] 11-30-2023 Evaluation note* Encounter Date Diagnosis Assessment Notes Treatment Notes Treatment Clinical Notes Mar, Dysuria (ICD-10 - R30.0) Mar, SHELLEY (generalized anxiety disorder) (ICD-10 - F41.1) [employer] 10-24-2023 Miscellaneous Notes* Telephone Encounter - [...] patient. Casandra Lambert Ma documented in this encounterAv[facility]10-12-2023 History of Present illness Narrative* Rachid [...] (Sleep study not recommended) documented in this encounterAv[facility]10-11-2023 Evaluation note* Encounter Date Diagnosis Assessment Notes Treatment Notes Treatment Clinical Notes Feb, Dysuria (ICD-10 - R30.0) test ran by YVES Zhu [employer] [facility] 08-28-2023 Evaluation note* Encounter Date Diagnosis [...] and to contact office for any changes [employer] [facility] 08-25-2023 Evaluation note* Encounter Date Diagnosis Assessment Notes Treatment Notes Treatment Clinical Notes Dec, Acute non-recurrent maxillary sinusitis (ICD-10 - J01.00) Instructed to use Robitussin or Mucinex for cough, saline or Flonase NS for congestion, Tylenol for pain and fever. [employer] [facility] 04-12-2023 Evaluation note* Encounter Date Diagnosis [...] is (ICD-10 - E06.3) Euthyroid, yearly TSH [employer] [facility] 04-11-2023 History of Present illness Narrative* [...] which included preparing to see the patient, bcao-xm-beqn patient care, completing clinical documentation, obtaining and/or reviewing separately obtained history, performing a medically appropriate examination, counseling and educating the pat ient/family/caregiver, and ordering medications, tests, or procedures. SIGNATURE: Rachid Odell MD PATIENT NAME: Rufino Collins DATE: August 20, 2022 TIME: 1:59 PM documented in this encounterAvita [facility]04-10-2023 Miscellaneous Notes* Telephone Encounter - Mariposa [...] [Other], Levofloxacin, and Sulfa (Sulfonamide Antibiotics) (home) [phone] (cell) Reason for call: The appointment center [...] not asked Karla Jackson documented in this encounterAv[facility]04-05-2023 Evaluation note* Encounter Date Diagnosis Assessment Notes Treatment Notes Treatment Clinical Notes Aug, Dysuria (ICD-10 - R30.0) [employer] [facility] 03-08-2023 Evaluation note* Encounter Date Diagnosis [...] reviewed at the office visit. A1C: yearly [employer] [facility] 03-03-2023 Hospital Discharge instructions* Discharge Instructions* [...] be sent through Care Everywhere. * Dizziness (Chadian) * [place] Maneuver: Vertigo: Exercises (Chadian) * Vertigo (Chadian) * Vertigo: [place] Exercises (Chadian) [facility] [employer] Work Phone: 1(299) 745-568302-21-2023 Evaluation note* Encounter Date Diagnosis Assessment Notes Treatment Notes Treatment Clinical Notes Jun, Chronic maxillary sinusitis (ICD-10 - J32.0) [employer] [facility] 09-15-2022 History of Present illness Narrative* [...] which included preparing to see the patient, jwjc-bk-cmtb patient care, completing clinical documentation, obtaining and/or reviewing separately obtained history, performing a medically appropriate examination, counseling and educating the pat ient/family/caregiver, and ordering medications, tests, or procedures. SIGNATURE: Rachid Odell MD PATIENT NAME: Rufino Collins DATE: January 24, 2022 TIME: 2:17 PM documented in this encounterAvita [facility]07-15-2022 Hospital Discharge instructions Patient Education 11/23/2021 [...] 04/14/2013 Document Revised: 12/16/2018 Document Reviewed: 12/16/2018 [employer] Patient Education 2020 [employer]. 11/23/2021 11:25:05 Kidney Stones, Kuus-ms-Tcwx Kidney Stones Kidney stones are rock-like masses [...] Follow these instructions at home: Medicines Take jkkl-ysl-cvkyzgt and prescription medicines only as told by [...] 10/14/2008 Document Revised: 09/14/2019 Document Reviewed: 09/14/2019 [employer] Patient Education 2020 [employer]. Follow Up Care 09/18/2020 14:42:38 With:ANAND ALMARAZ, Natalie Mosley, URL Address: [address] [place], [place] [id number]- When:Within 1 Year(s) Comments:w/ MARCELINO [facility] 05-31-2022 Evaluation note* Encounter Date Diagnosis Assessment Notes Treatment Notes Treatment Clinical Notes September, GERD (gastroesophageal reflux disease) (ICD-10 - K21.9) Continue Pantoprazole 40mg daily September, Irritable bowel syndrome with diarrhea (ICD-10 - K58.0) Continue Dicyclomine prn September, Hemorrhoids (ICD-10 - K64.9) Start Anusol cream [employer] [facility] Evaluation + Plan note Future Appointments Appointment Date:11/25/2022 01:15:00 PM Scheduled Provider:Natalie MICHEL MD Location:[facility] Appointment Type:URO Office Visit [facility] evaluation + Plan note Future Appointments Appointment Date:04/30/2023 11:00:00 AM Scheduled Provider: Location:[facility] Appointment Type:URO Nurse Visit [facility] Evaluation + Plan note Future Appointments Appointment Date:04/30/2023 11:00:00 AM Scheduled Provider: Location:[facility] Appointment Type:URO Nurse Visit Diagnostic Tests Pending * [facility]ments Appointment Date:08/20/2024 11:00:00 AM Scheduled Provider: Location:[facility] Appointment Type:Urology CALL PAT Appointment Date:08/23/2024 09:45:00 AM Scheduled Provider: Location:[facility] Appointment Type:Urology FT [facility] Evaluation + Plan note Future Appointments Appointment Date:05/20/2025 01:00:00 PM Scheduled Provider:Jessica Linton MD Location:[facility] Appointment Type:URO Office Visit [facility] evaluation note* Diagnosis Essential tremor- Primary Essential and other specified forms of tremor documented in this encounter [facility]* Diagnosis Pacemaker- Primary Cardiac pacemaker in situ [facility]* Diagnosis Dizziness- Primary Dizziness and giddiness documented in this encounter [facility] Work Phone: evaluation noteNo [place] [employer] Other evaluation note* Diagnosis Tremor- Primary Abnormal involuntary movements Vertigo Dizziness and giddiness documented in this encounter [facility] note* Diagnosis Essential tremor- Primary Essential and other specified forms of tremor documented in this encounter [facility]* Diagnosis Pacemaker- Primary Cardiac pacemaker in situ documented in this encounter [facility] HospitalEvaluation noteNo assessment information availableOhio [facility] Work Phone: Evaluation note* Diagnosis Neuropathy- Primary Mononeuritis of unspecified site Essential tremor Essential and other specified forms of tremor documented in this encounter [facility] note* Diagnosis Onset Date Resolution Status SHELLEY (generalized anxiety disorder) acute Hypertension acute Hypothyroidism acute Obesity acute Pacemaker acute Type 2 diabetes mellitus with hyperglycemia acute Maxillary sinusitis acute [facility] Work Phone: Evaluation note* Diagnosis Onset Date Resolution Status SHELLEY (generalized anxiety disorder) acute Hypertension acute Hypothyroidism acute Obesity acute Pacemaker acute Type 2 diabetes mellitus with hyperglycemia acute Medicare annual wellness visit, subsequent noneactive [facility] Work Phone: Evaluation note* Diagnosis Carpal tunnel syndrome of right wrist Carpal tunnel syndrome Pacemaker reprogramming/check Fitting and adjustment of cardiac pacemaker documented in this encounter [facility] note* Diagnosis Essential tremor- Primary Essential and other specified forms of tremor Pacemaker reprogramming/check Fitting and adjustment of cardiac pacemaker documented in this encounter [facility] note* Diagnosis Onset Date Resolution Status Admit Date SHELLEY (generalized anxiety disorder) acute July 09, 2 025 1:20pm Hypertension acute June 1:20pm Hypothyroidism acute June 132024 1:20pm Obesity acute July 09, 2024 1:20pm Pacemaker acute July 09, 2024 1:20pm Type 2 diabetes mellitus wit h hyperglycemia acute July 09, 2 025 1:20pm [facility] Work Phone: Evaluation note* Diagnosis Pacemaker- Primary Cardiac pacemaker in situ Heart block Conduction disorder, unspecified documented in this encounter [facility]* Diagnosis Essential tremor- Primary Essential and other specified forms of tremor Paresthesia of skin Disturbance of skin sensation documented in this encounter [facility] general Narrative - Reported* Type Description Date [...] ABOVE SURGERY Hospitalization History kidney stones 10/2016 [employer] [facility] Hospital course Narrative No data available for this section [facility] Hospital Discharge instructions No data available for this section [facility] No data available for this section [facility] reason for referral (narrative)* Outpatient Procedure (Routine) - Pending Review Specialty Diagnoses / Procedures Referred By Contac t Referred To [facility] Diagnoses Pacemaker Procedures ECG COMPLETE ECG ROUTINE ECG W/LEAST 12 LDS W/I&[place] [address] [place] [address] [facility] [place] [address] [place] [address] Referral ID Status Reason Start Date Expiration Date Visits Requested Visits Authorized [id number] Pending Review Auto-Generat ed Referral 04/16/2023 04/15/2024 1 1 [facility] Summary Purpose Family History No Family History Records Found Relationship Condition Age at Onset Recorded Date/T ayla father Unknown family member Unknown Not Specified Unknown Relationship Condition Age at Onset Recorded Date/T ayla father Unknown family member Unknown mother Unknown Advance Directives No Advanced Directives Records FoundDocuments on File Type Date Recorded Patient Collar Sewer Expl anation Advance Directive(s) Advance Directive(s) 01/16/2007 Documents on File Type Date Recorded Patient Collar Sewer Expl anation Advance Directive(s) Advance Directive(s) 01/16/2007 Advance Directive Response Recorded Date/ Time Advance Directives No April 2:23pm Advance Directive Response Recorded Date/ Time Advance Directives No April 1:23pm Advance Directive Response Recorded Date/ Time Advance Directives No July 19 9:04am Chief Complaint and Reason for Visit Chief [...] 09, 2024 1:49pm Medicare annual wellness visit, subseque nt January 09, 2024 1:49pm Chief Complaint Admit Date UA, frequency, cloudy July 01 9:37am Chief Complaint Admit Date UA, frequency, cloudy July 01 9:37am 6 month f/u July 09, 2024 1:20pm Reason for Visit Admit Date SHELLEY (generalized anxiety disorder) Febru 2024 1:20pm Hypertension July 09, 2024 1:20pm Hypothyroidism July 09, 2024 1:20pm Obesity July 09, 2024 1:20pm Pacemaker July 09, 2024 1:20pm Type 2 diabetes mellitus with hyperglyce vickie July 09, 2024 1:20pm Chief Complaint Admit Date UA, frequency, cloudy July 01 9:37am 6 month f/u July 09, 2024 1:20pm Unknown July 09, 2024 3:30pm Reason for Visit Admit Date SHELLEY (generalized anxiety disorder) Febru teresa2024 1:20pm Hypertension July 09, 2024 1:20pm Hypothyroidism July 09, 2024 1:20pm Obesity July 09, 2024 1:20pm Pacemaker July 09, 2024 1:20pm Type 2 diabetes mellitus with hyperglyce vickie July 09, 2024 1:20pm Dysuria July 09, 2024 1:20pm Chief Complaint Admit Date UA, frequency, cloudy July 01 9:37am 6 month f/u July 09, 2024 1:20pm Unknown July 09, 2024 3:30pm fatigue, frequency, incontinences July 19, 2024 9:06am Chief Complaint Admit Date UA, frequency, cloudy July 01 9:37am 6 month f/u July 09, 2024 1:20pm Unknown July 09, 2024 3:30pm fatigue, frequency, incontinences July 19, 2024 9:06am Unknown July 19, 2024 10: 45am Chief Complaint Admit Date UA, frequency, cloudy July 01 9:37am 6 month f/u July 09, 2024 1:20pm Unknown July 09, 2024 3:30pm fatigue, frequency, incontinences July 19, 2024 9:06am Unknown July 19, 2024 10: 45am weakness, lt side pain July 21, 2024 3:39pm Reason for Visit Admit Date SHELLEY (generalized anxiety disorder) Febru teresa 2024 1:20pm Hypertension July 09, 2024 1:20pm Hypothyroidism July 09, 2024 1:20pm Obesity July 09, 2024 1:20pm Pacemaker July 09, 2024 1:20pm Type 2 diabetes mellitus with hyperglyce [facility] July 09, 2024 1:20pm Dysuria July 09, 2024 1:20pm Acute flank pain July 21, 2024 3:3 9pm Bladder wall thickening July 21, 2024 3:39pm Hydronephrosis July 21, 2024 3:3 9pm Hydroureteronephrosis July 21, 2024 3 :39pm Hypertension July 21, 2024 3:3 9pm Hypothyroidism July 21, 2024 3:3 9pm Lesion of bladder July 21, 2024 3:3 9pm Nephrolithiasis July 21, 2024 3:3 9pm Pacemaker July 21, 2024 3:3 9pm Pyuria July 21, 2024 3:3 9pm Type 2 diabetes mellitus with hyperglyce vickie July 21, 2024 3:39pm UTI (urinary tract infection) July 3:39pm Chief Complaint Admit Date UA, frequency, cloudy July 01 9:37am 6 month f/u July 09, 2024 1:20pm Unknown July 09, 2024 3:30pm fatigue, frequency, incontinences July 19, 2024 9:06am Unknown July 19, 2024 10: 45am weakness, lt side pain July 21, 2024 3:39pm UTI, cysto with stent July 26, 2024 1 1:15am Reason for Visit Admit Date SHELLEY (generalized anxiety disorder) Febru teresa 2024 1:20pm Hypertension July 09, 2024 1:20pm Hypothyroidism July 09, 2024 1:20pm Obesity July 09, 2024 1:20pm Pacemaker July 09, 2024 1:20pm Type 2 diabetes mellitus with hyperglyce vickie July 09, 2024 1:20pm Dysuria July 09, 2024 1:20pm Acute flank pain July 21, 2024 3:3 9pm Bladder wall thickening July 21, 2024 3:39pm Hydronephrosis July 21, 2024 3:3 9pm Hydroureteronephrosis July 21, 2024 3 :39pm Hypertension July 21, 2024 3:3 9pm Hypothyroidism July 21, 2024 3:3 9pm Lesion of bladder July 21, 2024 3:3 9pm Nephrolithiasis July 21, 2024 3:3 9pm Pacemaker July 21, 2024 3:3 9pm Pyuria July 21, 2024 3:3 9pm Type 2 diabetes mellitus with hyperglyce vickie July 21, 2024 3:39pm UTI (urinary tract infection) July 3:39pm Bladder wall thickening July 26, 2024 11:15am Hydroureteronephrosis July 26, 2024 1 1:15am Hypertension July 26, 2024 11: 15am Nephrolithiasis July 26, 2024 11: 15am Type 2 diabetes mellitus with hyperglyce vickie July 26, 2024 11:15am UTI (urinary tract infection) July 11:15am Chief Complaint Admit Date UA, frequency, cloudy July 01 9:37am 6 month f/u July 09, 2024 1:20pm Unknown July 09, 2024 3:30pm fatigue, frequency, incontinences July 19, 2024 9:06am Unknown July 19, 2024 10: 45am weakness, lt side pain July 21, 2024 3:39pm UTI, cysto with stent July 26, 2024 1 1:15am Left Stone w/Hydronephrosis August 03, 2024 10:58am Chief Complaint Admit Date fatigue, frequency, incontinences July 19, 2024 9:06am Unknown July 19, 2024 10: 45am weakness, lt side pain July 21, 2024 3:39pm UTI, cysto with stent July 26, 2024 1 1:15am Left Stone w/Hydronephrosis August 03, 2024 10:58am ER follow up-HIGH RISK August 26, 2024 11:06am N20.0 October 05, 2024 1:40p m Reason for Visit Admit Date Acute flank pain July 21, 2024 3:3 9pm Bladder wall thickening July 21, 2024 3:39pm Hydronephrosis July 21, 2024 3:3 9pm Hydroureteronephrosis July 21, 2024 3 :39pm Hypertension July 21, 2024 3:3 9pm Hypothyroidism July 21, 2024 3:3 9pm Lesion of bladder July 21, 2024 3:3 9pm Nephrolithiasis July 21, 2024 3:3 9pm Pacemaker July 21, 2024 3:3 9pm Pyuria July 21, 2024 3:3 9pm Type 2 diabetes mellitus with hyperglyce vickie July 21, 2024 3:39pm UTI (urinary tract infection) July 3:39pm Bladder wall thickening July 26, 2024 11:15am Hydroureteronephrosis July 26, 2024 1 1:15am Hypertension July 26, 2024 11: 15am Nephrolithiasis July 26, 2024 11: 15am Type 2 diabetes mellitus with hyperglyce vickie July 26, 2024 11:15am UTI (urinary tract infection) July 11:15am Hypertension August 26, 2024 11: 06am Nephrolithiasis August 26, 2024 11: 06am Type 2 diabetes mellitus with hyperglyce vickie August 26, 2024 11:06am UTI (urinary tract infection) August 11:06am Pneumonia August 26, 2024 11: 06am Additional Source Comments INFORMATION SOURCE (unrecogn ized section and content) DATE CREATED AUTHOR 10/31/2017 [facility] DATE CREATED AUTHOR AUTHOR'S ORGANIZ ATION 07/17/2022 [facility] DATE CREATED AUTHOR AUTHOR'S ORGANIZ ATION 07/19/2022 [facility] DATE CREATED AUTHOR AUTHOR'S ORGANIZ ATION 08/17/2024 [facility] DATE CREATED AUTHOR AUTHOR'S ORGANIZ ATION 09/14/2024 [facility] DATE CREATED AUTHOR AUTHOR'S ORGANIZ ATION 10/17/2024 [facility] DATE CREATED AUTHOR AUTHOR'S ORGANIZ ATION 10/20/2024 [facility] DATE CREATED AUTHOR AUTHOR'S ORGANIZ ATION 10/31/2024 [facility] REASON FOR VISIT (unrecogniz ed section and [...] Comments Tremor Neuropathy Follow Up Established Patient Reason Comments Permanent Pacemaker Reason Comments Medication Problem Reason Comments Patient Question Care Team (unrecognized sect ion and content) Team Status: Active Member Role Status Dates Manav Rajan DO Primary Care Provider Active Team Status: Inactive Member Role Status Dates Manav Rajan DO Primary Care Provide r, Attending Provider Active Start: January 09, 2024 End: January 09, 2024 Team Status: Active Member Role Status Dates Mnaav Rajan DO Primary Care Provide r, Attending Provider Active Start: February 10, 2024 Team Status: Inactive Member Role Status Dates Manav Rajan DO Primary Care Provide r, Attending Provider Active Start: March 22, 2024 End: March 22, 2024 Polymerization Helper Relationship Specialty Start Date End Date Manav Rajan DO PCP - General Internal Medicine 02/07/15 Tamra Grewal MD Primary Staff Physician Cardiology 07/28/18 Polymerization Helper Relationship Specialty Start Date End Date Manav Rajan DO PCP - General Internal Medicine 02/07/15 Tamra Grewal MD Primary Staff Physician Cardiology 07/28/18 Polymerization Helper Relationship Specialty Start Date End Date Manav Rajan DO PCP - General Internal Medicine 02/07/15 Tamra Grewal MD Primary Staff Physician Cardiology 07/28/18 Polymerization Helper Relationship Specialty Start Date End Date Manav Rajan DO PCP - General Internal Medicine 02/07/15 Tamra Grewal MD Primary Staff Physician Cardiology 07/28/18 Polymerization Helper Relationship Specialty Start Date End Date Manav Rajan DO PCP - General Internal Medicine 04/23/17 Polymerization Helper Relationship Specialty Start Date End Date Manav Rajan DO PCP - General Internal Medicine 02/07/15 Tamra Grewal MD Primary Staff Physician Cardiology 07/28/18 Polymerization Helper Relationship Specialty Start Date End Date Manav Rajan DO PCP - General Internal Medicine 02/07/15 Tamra Grewal MD Primary Staff Physician Cardiology 07/28/18 Polymerization Helper Relationship Specialty Start Date End Date Manav Rajan DO PCP - General Internal Medicine 02/07/15 Tamra Grewal MD Primary Staff Physician Cardiology 07/28/18 Polymerization Helper Relationship Specialty Start Date End Date Manav Rajan DO PCP - General Internal Medicine 02/07/15 Tamra Grewal MD Primary Staff Physician Cardiology 07/28/18 Polymerization Helper Relationship Specialty Start Date End Date Manav Rajan DO PCP - General Internal Medicine 02/07/15 Tamra Grewal MD Primary Staff Physician Cardiology 07/28/18 Polymerization Helper Relationship Specialty Start Date End Date Manav Rajan DO PCP - General Internal Medicine 02/07/15 Tamra Grewal MD Primary Staff Physician Cardiology 07/28/18 Polymerization Helper Relationship Specialty Start Date End Date Manav Rajan DO PCP - General Internal Medicine 02/07/15 Tamra Grewal MD Primary Staff Physician Cardiology 07/28/18 Polymerization Helper Relationship Specialty Start Date End Date Manav Rajan DO PCP - General Internal Medicine 02/07/15 Tamra Grewal MD Primary Staff Physician Cardiology 07/28/18 Team Status: Inactive Member Role Status Dates Nina Wallace NP-C Attending Provider Active Polymerization Helper Relationship Specialty Start Date End Date Manav [...] Member Role Status Dates Carmina Noyola APRN [employer] WORKER-C Attending Provider Act nguyen Start: September 03, 2023 End: September 03, 2023 Manav Rajan DO Primary Care Provider Active Start: September 03, 2023 End: September 03, 2023 Team Status: Active Member Role Status Dates Manav Rajan DO Primary Care Provide r, Attending Provider Active Start: November 14, 2023 Polymerization Helper Relationship Specialty Start Date End Date Manav Rajan DO PCP - General Internal Medicine 02/07/15 Tamra Grewal MD Primary Staff Physician Cardiology 07/28/18 Polymerization Helper Relationship Specialty Start Date End Date Manav Rajan DO PCP - General Internal Medicine 02/07/15 Tamra Grewal MD Primary Staff Physician Cardiology 07/28/18 Team Status: Inactive Member Role Status Dates Manav Rajan DO Primary Care Provide r, Attending Provider Active Start: July 01, 2024 End: July 01, 2024 Team Status: Inactive Member Role Status Dates Manav Rajan DO Primary Care Provide r, Attending Provider Active Start: July 09, 2024 End: July 09, 2024 Team Status: Inactive Member Role Status Dates Manav Rajan DO Attending Provider Active Sta rt: July 09, 2024 End: July 09, 2024 Team Status: Inactive Member Role Status Dates Manav Rajan DO Primary Care Provide r, Attending Provider Active Start: July 19, 2024 End: July 19, 2024 Team Status: Inactive Member Role Status Gregorio Rajan DO Attending Provider Active Sta rt: July 19, 2024 End: July 19, 2024 Team Status: Active Member Role Status Gregorio Rajan DO Primary Care Provider Active Start: July 21, 2024 Adin Medley DO Emergency Provider Active Sta rt: July 21, 2024 Gagan Wylie MD Admit Provide r, Attending Provider Active Start: July 21, 2024 Jessica Linton MD Other Provider Active Start: [facility] 2024 Team Status: Inactive Member Role Status Gregorio Rajan DO Primary Care Provider Active Start: July 21, 2024 End: July 23, 2024 Adin Medley DO Emergency Provider Active Sta rt: July 21, 2024 End: July 23, 2024 Gagan Wylie MD Admit Provide r, Attending Provider Active Start: July 21, 2024 End: July 23, 2024 Jessica Linton MD Other Provider Active Start: [facility] 2024 End: July 23, 2024 Team Status: Inactive Member Role Status Gregorio Rajan DO Primary Care Provide r, Attending Provider Active Start: July 26, 2024 End: July 26, 2024 Team Status: Inactive Member Role Status Gregorio Rajan DO Primary Care Provider Active Start: August 03, 2024 End: August 03, 2024 Jessica Linton MD Attending Provider Active Start : August 03, 2024 End: August 03, 2024 Team Status: Inactive Member Role Status Gregorio Rajan DO Primary Care Provide r, Attending Provider Active Start: August 26, 2024 End: August 26, 2024 Team Status: Inactive Member Role Status Gregorio Rajan DO Primary Care Provider Active Start: October 05, 2024 End: October 05, 2024 Jessica Linton MD Attending Provider Active Start : October 05, 2024 End: October 05, 2024 Source Comments (unrecognize d section and content) In the event this informatio n is protected by the Federal Confidentiality of Alcohol and Drug Abuse Patient Records regulations: The Federal rules restrict any use of the information to criminally investigate or prosecute any alcohol or drug abuse patient.[facility] the event this information is protected by the Federal Confidentiality of Alcohol and Drug Abuse Patient Records regulations: The Federal rules restrict any use of the information to criminally investigate or prosecute any alcohol or drug abuse patient.[facility] the event this information is protected by the Federal Confidentiality of Alcohol and Drug Abuse Patient Records regulations: The Federal rules restrict any use of the information to criminally investigate or prosecute any alcohol or drug abuse patient.[facility] the event this information is protected by the Federal Confidentiality of Alcohol and Drug Abuse Patient Records regulations: The Federal rules restrict any use of the information to criminally investigate or prosecute any alcohol or drug abuse patient.[facility] Hospital[facility] the event this information is protected by the Federal Confidentiality of Alcohol and Drug Abuse Patient Records regulations: The Federal rules restrict any use of the information to criminally investigate or prosecute any alcohol or drug abuse patient.[facility] Hospital[facility] the event this information is protected by the Federal Confidentiality of Alcohol and Drug Abuse Patient Records regulations: The Federal rules restrict any use of the information to criminally investigate or prosecute any alcohol or drug abuse patient.[facility] HospitalIn the event this information is protected by the Federal Confidentiality of Alcohol and Drug Abuse Patient Records regulations: The Federal rules restrict any use of the information to criminally investigate or prosecute any alcohol or drug abuse patient.[facility] HospitalIn the event this information is protected by the Federal Confidentiality of Alcohol and Drug Abuse Patient Records regulations: The Federal rules restrict any use of the information to criminally investigate or prosecute any alcohol or drug abuse patient.[facility] HospitalIn the event this information is protected by the Federal Confidentiality of Alcohol and Drug Abuse Patient Records regulations: The Federal rules restrict any use of the information to criminally investigate or prosecute any alcohol or drug abuse patient.[facility] Hospital[facility] the event this information is protected by the Federal Confidentiality of Alcohol and Drug Abuse Patient Records regulations: The Federal rules restrict any use of the information to criminally investigate or prosecute any alcohol or drug abuse patient.[facility] HospitalIn the event this information is protected by the Federal Confidentiality of Alcohol and Drug Abuse Patient Records regulations: The Federal rules restrict any use of the information to criminally investigate or prosecute any alcohol or drug abuse patient.[facility] HospitalIn the event this information is protected by the Federal Confidentiality of Alcohol and Drug Abuse Patient Records regulations: The Federal rules restrict any use of the information to criminally investigate or prosecute any alcohol or drug abuse patient.[facility] HospitalIn the event this information is protected by the Federal Confidentiality of Alcohol and Drug Abuse Patient Records regulations: The Federal rules restrict any use of the information to criminally investigate or prosecute any alcohol or drug abuse patient.[facility] HospitalIn the event this information is protected by the Federal Confidentiality of Alcohol and Drug Abuse Patient Records regulations: The Federal rules restrict any use of the information to criminally investigate or prosecute any alcohol or drug abuse patient.[facility] HospitalIn the event this information is protected by the Federal Confidentiality of Alcohol and Drug Abuse Patient Records regulations: The Federal rules restrict any use of the information to criminally investigate or prosecute any alcohol or drug abuse patient.[facility] HospitalIn the event this information is protected by the Federal Confidentiality of Alcohol and Drug Abuse Patient Records regulations: The Federal rules restrict any use of the information to criminally investigate or prosecute any alcohol or drug abuse patient.[facility] HospitalIn the event this information is protected by the Federal Confidentiality of Alcohol and Drug Abuse Patient Records regulations: The Federal rules restrict any use of the information to criminally investigate or prosecute any alcohol or drug abuse patient.[facility] HospitalIn the event this information is protected by the Federal Confidentiality of Alcohol and Drug Abuse Patient Records regulations: The Federal rules restrict any use of the information to criminally investigate or prosecute any alcohol or drug abuse patient.[facility] HospitalIn the event this information is protected by the Federal Confidentiality of Alcohol and Drug Abuse Patient Records regulations: The Federal rules restrict any use of the information to criminally investigate or prosecute any alcohol or drug abuse patient.[facility] HospitalIn the event this information is protected by the Federal Confidentiality of Alcohol and Drug Abuse Patient Records regulations: The Federal rules restrict any use of the information to criminally investigate or prosecute any alcohol or drug abuse patient.[facility] HospitalIn the event this information is protected by the Federal Confidentiality of Alcohol and Drug Abuse Patient Records regulations: The Federal rules restrict any use of the information to criminally investigate or prosecute any alcohol or drug abuse patient.[facility] HospitalIn the event this information is protected by the Federal Confidentiality of Alcohol and Drug Abuse Patient Records regulations: The Federal rules restrict any use of the information to criminally investigate or prosecute any alcohol or drug abuse patient.[facility] HospitalIn the event this information is protected by the Federal Confidentiality of Alcohol and Drug Abuse Patient Records regulations: The Federal rules restrict any use of the information to criminally investigate or prosecute any alcohol or drug abuse patient.[facility] HospitalIn the event this information is protected by the Federal Confidentiality of Alcohol and Drug Abuse Patient Records regulations: The Federal rules restrict any use of the information to criminally investigate or prosecute any alcohol or drug abuse patient.[facility] HospitalIn the event this information is protected by the Federal Confidentiality of Alcohol and Drug Abuse Patient Records regulations: The Federal rules restrict any use of the information to criminally investigate or prosecute any alcohol or drug abuse patient.[facility] HospitalIn the event this information is protected by the Federal Confidentiality of Alcohol and Drug Abuse Patient Records regulations: The Federal rules restrict any use of the information to criminally investigate or prosecute any alcohol or drug abuse patient.[facility] HospitalIn the event this information is protected by the Federal Confidentiality of Alcohol and Drug Abuse Patient Records regulations: The Federal rules restrict any use of the information to criminally investigate or prosecute any alcohol or drug abuse patient.[facility] Goals (unrecognized section and content) Goals [...] BE BASED ON THE PRIMARY CLINICAL RECORDS. [facility] [employer] [facility]. provides no warranty or guarantee of the accuracy or completeness of information in this document.
[2025-01-11 15:19] LABS: Alanine Aminotransferase 31 U/L (14-59); Albumin Globulin Ratio 0.8; Albumin Level 3.8 g/dL (3.4-5.0); Alkaline Phosphatase 100 U/L (46-116); Anion Gap 12.5; Aspartate Amino Transferase 16 U/L (15-37); Blood Urea Nitrogen 32.0 mg/dL (7.0-18.0); Calcium 9.9 mg/dL (8.5-10.1); Carbon Dioxide 29.6 mmol/L (21.0-32.0); Chloride 103 mmol/L (98-107); Estimated GFR (African America >60 (>=60 mL/min/1.73m^2); Estimated GFR (Non-African Ame 60 (>=60 mL/min/1.73m^2); Globulin 4.5 g/dL; Glucose 99 mg/dL (74-106); Potassium 4.1 mmol/L (3.5-5.1); Sodium 141 mmol/L (136-145); Thyroid Stimulating Hormone 1.189 uIU/mL (0.358-3.740); Total Protein 8.3 g/dL (6.4-8.2)
[2025-01-11 15:49] LABS: Hematocrit 48.5 % (36.0-48.0); Hemoglobin 16.1 g/dL (12.0-16.0); Immature Granulocytes Abs Auto 0.04 10^3/uL (0.00-0.03); Immature Granulocytes Pct Auto 0.4 % (0.0-0.5); Lymphocytes Absolute Auto 3.3 10^3/uL (1.2-3.8); Mean Corpuscular HGB Conc 33.2 g/dL (29.9-35.2); Mean Corpuscular Hemoglobin 29.7 pg (26.7-34.0); Mean Corpuscular Volume 89.3 fL (81.0-99.0); Platelet Count 284 10^3/uL (150-450); Red Blood Count 5.43 10^6/uL (4.20-5.40); White Blood Count 9.7 10^3/uL (4.0-11.0)
== END 2025-01-11 14:37 | disposition home or self-care (01) ==
LOC: LAB 14:37
PROVIDERS: PCP Internal Medicine; Visit Provider Internal Medicine
DX: N20.0 Calculus of kidney (principal); E11.65 Type 2 diabetes mellitus with hyperglycemia; E03.8 Other specified hypothyroidism; E06.3 Autoimmune thyroiditis; I10 Essential (primary) hypertension
CPT/HCPCS: 36415; 80053; 82043; 82570; 83036; 84443; 85025